=== PATIENT | male | born 1955 | race Caucasian/White ===

== ENCOUNTER 2017-01-23 23:17 | Inpatient (IN) | payer MEDICARE ==
[2017-01-23] MEDS ORDERED: ALBUTEROL SULFATE 0.083% NEB 2.5 MG/3 ML AMPUL NEB ONE (23:20)
--- NOTE | 2017-01-23 23:25 | ER Document Report ---
ED General - General Stated Complaint: DIFFICULTY BREATHING Notes: Patient is a 61-year-old male who presents with complaint of difficulty breathing. Patient's called him once because worsening difficulty breathing today. He does have a history of COPD. He has a history of liver failure. He does still smoke. He wears 4 L of oxygen at home. Patient initially had a fever 101.8. They did give 975 mg,. They give him a DuoNeb treatment. They gave him 125 of Solu-Medrol. They gave him 2 g of magnesium. They placed on BiPAP. He still has some increased work of breathing however, paramedics say he looks much improved as compared to when they first arrived to him. No chest pain. TRAVEL OUTSIDE OF THE [place] IN LAST 30 DAYS: No - Related Data Allergies/Adverse Reactions: cephalexin monohydrate [From Keflex] Allergy (Intermediate, Verified 06/08/16 08 :54) codeine Allergy (Verified 06/08/16 08:54) morphine Allergy (Verified 06/08/16 08:54) Home Medications: Current Home Medications Albuterol Sulfate [Proair HFA] 1 puff IH Q4HP PRN 01/24/17 [History] Atorvastatin Calcium [Lipitor 40 mg Tablet] 40 mg PO DAILY 01/24/17 [History] Cholecalciferol (Vitamin D3) [Vitamin D3 5000 unit Capsule] 5,000 unit PO DAILY 01/24/17 [History] Cyanocobalamin (Vitamin B-12) [Vitamin B-12 500 mcg Tablet] 500 mcg PO DAILY [History] Docusate Sodium [Colace 100 mg Capsule] 100 mg PO BID 01/24/17 [History] Folic Acid [Folvite 1 mg Tablet] 1 mg PO DAILY 01/24/17 [History] Furosemide [Lasix] 40 mg PO QAM 01/24/17 [History] Hydroxyzine HCl [Atarax 10 mg Tablet] 10 mg PO Q6HP PRN 01/24/17 [History] Ipratropium/Albuterol Sulfate [Duoneb 3 ml Ampul] 3 ml NEB RTQIDP PRN 01/24/17 [ History] Loratadine 10 mg PO DAILY 01/24/17 [History] Melatonin 10 mg PO QHS 01/24/17 [History] Montelukast Sodium [Singulair 10 mg Tablet] 10 mg PO QHS 01/24/17 [History] Multivitamin [Tab-A-Bailey] 1 tab PO DAILY 01/24/17 [History] Omeprazole Magnesium [Prilosec Otc] 40 mg PO DAILY 01/24/17 [History] Oxycodone HCl [Oxycodone HCl 10 MG Tablet] 10 mg PO Q6 01/24/17 [History] Pregabalin [Lyrica 100 Mg Capsule] 100 mg PO TID 01/24/17 [History] Rivaroxaban [Xarelto] 20 mg PO DAILY 01/24/17 [History] Tiotropium [place] [Spiriva Respimat] 2 puff IH DAILY 01/24/17 [History] Tramadol HCl [Ultram 50 mg Tablet] 50 mg PO TIDP PRN 01/24/17 [History] Trazodone HCl [Desyrel] 300 mg PO QHS 01/24/17 [History] Vitamin B Complex 1 cap PO DAILY 01/24/17 [History] Past Medical History - Social History Smoking Status: Current Every Day Smoker Frequency of alcohol use: None Drug Abuse: None Family History: COPD, Hypertension - Past Medical History Cardiac Medical History: Reports: Hx Congestive Heart Failure, Hx DVT, Hx Heart Attack, Hx Hypercholesterolemia, Hx Hypertension, Hx Peripheral Vascular Disease , Hx Pulmonary Embolism Pulmonary Medical History: Reports: Hx Asthma, Hx Bronchitis, Hx COPD, Hx Pneumonia, Hx Sleep Apnea Denies: Hx Tuberculosis Neurological Medical History: Denies: Hx Seizures GI Medical History: Reports: Hx Gastroesophageal Reflux Disease, Hx Hiatal Hernia, Hx Ulcer Psychiatric Medical History: Denies: Hx Depression Infectious Medical History: Reports: 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 Denies: Hx Appendectomy, Hx Bowel Surgery, Hx Coronary Artery Bypass Graft, Hx Gastric Bypass Surgery, Hx Pacemaker - Immunizations Hx Diphtheria, Pertussis, Tetanus Vaccination: Yes Hx Pneumococcal Vaccination: 03/25/13 Review of Systems - Review of Systems Notes: My Normal Review Basic REVIEW OF SYSTEMS: CONSTITUTIONAL : Denies fever, chills, or sweats. Denies recent illness. EENT: Denies eye, ear, throat, or mouth pain or symptoms. Denies nasal or sinus congestion. CARDIOVASCULAR: Denies chest pain. RESPIRATORY: Difficulty breathing. Wheezing. GASTROINTESTINAL: Denies abdominal pain. Denies nausea, vomiting, or diarrhea. Denies constipation. Last BM: MUSCULOSKELETAL: Denies neck or back pain or joint pain or swelling. SKIN: Denies rash or skin lesions. NEUROLOGICAL: Denies altered mental status or loss of consciousness. Denies headache. Denies weakness or paralysis or loss of use of either side. Denies problems with gait or speech. Denies sensory or motor loss. ALL OTHER SYSTEMS REVIEWED AND NEGATIVE. Physical Exam - Vital signs Vitals: Resp Pulse Ox 20 95 01/23/17 23:20 01/23/17 23:20 - Notes Notes: General Appearance: Well nourished, alert, cooperative, moderate acute distress , no obvious discomfort. Speaks in 2-3 word sentences. Vitals: reviewed, See vital signs table. Head: no swelling or tenderness to the head Eyes: PERRL, EOMI, Conjuctiva clear Mouth: No decreasd moisture Throat: No tonsillar inflammation, No airway obstruction, No lymphadenopathy Neck: Supple, no neck tenderness, Lungs: Diffuse wheezing, No rales, No rhonci, No accessory muscle use, fair air exchange bilaterally. Heart: Normal rate, Regular rythm, No murmur, no rub Abdomen: Normal BS, soft, some abdominal distention most likely related to ascites. Patient does have a large ventral hernia which is easily reducible and soft on palpation. No significant pain to palpation abdomen. Extremities: strength 5/5 in all extremities, good pulses in all extremities, no swelling or tenderness in the extremities, 3+ lower extremity edema which the patient says is chronic. Patient keeps his legs wrapped to help deal with the edema. Skin: warm, dry, appropriate color, no rash. I did cut off the patient's ulna boots. Patient has slight skin breakdown on both feet. There are no areas that look consistent with infection. Neuro: speech clear, oriented x 3, normal affect, responds appropriately to questions. Course - Re-evaluation Re-evalutation: 01/24/17 01:10 Patient's laboratory evaluations just significant for hypokalemia. Chest x- rays negative however he had fever with rest or issues and therefore we'll treat with Levaquin. I have ordered a flu swab as well. Patient's breathing was doing much better , but now he started having some wheezing and tightness again. We will repeat his DuoNeb treatments. I'll consult the hospitalist for consideration for admission. Dictation of this chart was performed using voice recognition software; therefore, there may be some unintended grammatical errors. 01/24/17 01:42 Patient is receiving the DuoNeb treatment now. The sternum become more wheezing started become we'll bit tired. His FiO2 on the BiPAP is only 35%. I will increase this. Will let him get remainder of the DuoNeb treatment. He continues to not feel improvement we may have to elect to intubate the patient. Patient has never been on a ventilator before. 01/24/17 02:19 Patient continued to become more and more sluggish and tired. I did discuss options intubation with him. He does agree to this. Patient's oxygen saturation on 100% FiO2 with BiPAP at that time was only 94%. Patient was given etomidate and succinylcholine. Patient did have some muscle tetany with etomidate. On first attempt a solid cores but was unable to pass the tube. On second attempt I placed a bougie through the cords and into the tube over it. Patient is now intubated. Bilateral breath sounds. No sounds in the stomach. Patient will be sedated with Versed. 01/24/17 03:34 Patient does have continued wheezing and tightness in the lungs. The sedation. Propofol and Versed her high levels. I will start a ketamine drip as this may be better from a respiratory distress standpoint and hopefully help bronchodilator. We will titrate down the propofol once a ketamine drip was started. 01/24/17 04:49 The ketamine drip is working well for the patient. We are able to titrate down the Versed quite a bit. We are now about titrating down the propofol. Dispatch patient's O2 saturations on monitor only being 93-94% his ABG shows that his PO2 is very high. He does have high CO2 with metabolic acidosis. We will titrate down his PO2 some. We will obtain a repeat ABG. 01/24/17 06:34 Did increase his tidal volume 500 available to tachypneic. His peak pressures were normal and therefore think it's appropriate to increase Tylenol find 500 which I think is probably can be more appropriate for his size. His lung hernandez infection cleared up nicely since being started on the ketamine drip. His oxygen saturation still only read on 3%. Will obtain a repeat ABG being that last on his PO2 is very high despite his O2 sats being fairly low. Hopefully his CO2 is starting to improve and his pH is also hopefully starting to improve. Patient was accepted by Dr. Simmons but he has been busy on the floor and he has not yet seen the patient or written orders therefore I continue to manage the patient. - Vital Signs Vital signs: Temp Pulse Resp BP Pulse Ox 97.3 F 74 22 H 120/70 94 01/24/17 16:00 01/25/17 01:28 01/25/17 01:28 01/25/17 01:38 01/25/17 04:37 - Laboratory Result Diagrams: 01/25/17 03:58 01/25/17 03:58 Laboratory results interpreted by me: 01/23/17 01/23/17 01/23/17 23:37 23:37 23:37 RBC RDW 15.2 H Seg Neutrophils % Lymphocytes % Carbonic Acid ABG pH ABG pCO2 ABG pO2 ABG HCO3 ABG Total CO2 ABG O2 Saturation VBG pH 7.45 H Potassium 3.0 L* Glucose 149 H Calcium AST 176 H ALT 88 H Creatine Kinase 236 H Albumin 3.4 L Salicylates Acetaminophen 01/24/17 01/24/17 01/24/17 03:51 06:54 06:54 RBC 4.32 L RDW 15.5 H Seg Neutrophils % 89.7 H Lymphocytes % 6.2 L Carbonic Acid 1.82 H ABG pH 7.27 L ABG pCO2 60.3 H ABG pO2 279.7 H ABG HCO3 26.8 H ABG Total CO2 28.7 H ABG O2 Saturation 99.5 H VBG pH Potassium Glucose 261 H Calcium 8.2 L AST 152 H ALT 84 H Creatine Kinase Albumin 3.2 L Salicylates Acetaminophen 01/24/17 06:54 RBC RDW Seg Neutrophils % Lymphocytes % Carbonic Acid ABG pH ABG pCO2 ABG pO2 ABG HCO3 ABG Total CO2 ABG O2 Saturation VBG pH Potassium Glucose Calcium AST ALT Creatine Kinase Albumin Salicylates < 1.0 L Acetaminophen < 10 L - EKG Interpretation by Me Additional EKG results interpreted by me: 01/23/17 23:43 EKG is reviewed and interpreted by me. EKG shows sinus tachycardia with rate of [address] segment elevation or depression. No ischemic T wave inversions. IA interval, QRS duration, QTC intervals are within normal range. Procedures - Intubation Orotracheal Mallampati Classification: Class 3 Intubation method: Orotracheal Blade type: Dedra Blade size: 4 Equipment used: [employer] ETT size: 7.5 ETT secured at: Lips ETT secured at (cm): 23 Breath Sounds after Intubation: Equal Intubation Complications: No complications Critical Care Note - Critical Care Note Total time excluding time spent on procedures (mins): 60 Comments: Critical care time on this patient not including time spent on procedures approximately 60 minutes due to frequent re-evaluations, airway management, management of ventilator. Discharge - Discharge Clinical Impression: Respiratory distress Disposition: ADMITTED INPATIENT Admitting Provider: Hospitalist Unit Admitted: ICU
[2017-01-24 00:01] LABS: VENOUS BLOOD BASE EXCESS 2.6 mmol/L; VENOUS BLOOD HCO3 26.7 mmol/L (20-32); VENOUS BLOOD PCO2 39.3 mmHg (35-63); VENOUS BLOOD PH 7.45 (7.30-7.42)
--- NOTE | 2017-01-24 00:02 | EKG REPORT ---
SEVERITY:- OTHERWISE NORMAL ECG - SINUS TACHYCARDIA : Confirmed by: Dominick Bolivar 24-Jan-2017 00:01:40
[2017-01-24 00:04] LABS: ABSOLUTE BASOPHILS # (AUTO) 0.1 10^3/uL (0.0-0.2); ABSOLUTE EOSINOPHILS # (AUTO) 0.1 10^3/uL (0.0-0.6); ABSOLUTE LYMPHOCYTES (AUTO) 2.1 10^3/uL (0.5-4.7); ABSOLUTE MONOCYTES (AUTO) 0.8 10^3/uL (0.1-1.4); ABSOLUTE NEUT (AUTO) 6.4 10^3/uL (1.7-8.2); BASOPHILS % (AUTO) 0.7 % (0-2); EOSINOPHILS % (AUTO) 1.1 % (0-6); HEMATOCRIT 42.3 % (37.9-51.0); HEMOGLOBIN 14.7 g/dL (13.5-17.0); HGB HCT DIFFERENCE 1.8; LYMPHOCYTES % (AUTO) 22.4 % (13-45); MEAN CORPUSCULAR HEMOGLOBIN 32.8 pg (27.0-33.4); MEAN CORPUSCULAR HGB CONC 34.9 g/dL (32.0-36.0); MEAN CORPUSCULAR VOLUME 94 fl (80-97); MONOCYTES % (AUTO) 8.6 % (3-13); RED BLOOD COUNT 4.49 10^6/uL (4.35-5.55); RED CELL DISTRIBUTION WIDTH 15.2 % (11.5-14.0); SEGMENTED NEUTROPHILS % (AUTO) 67.2 % (42-78); WHITE BLOOD COUNT 9.5 10^3/uL (4.0-10.5)
[2017-01-24 00:17] LABS: ALANINE AMINOTRANSFERASE 88 U/L (21-72); ALBUMIN 3.4 g/dL (3.5-5.0); ALKALINE PHOSPHATASE 75 U/L (38-126); ANION GAP 11 (5-19); ASPARTATE AMINO TRANSFERASE 176 U/L (17-59); BILIRUBIN,TOTAL 0.6 mg/dL (0.2-1.3); BLOOD UREA NITROGEN 12 mg/dL (7-20); CARBON DIOXIDE 26 mmol/L (22-30); CHLORIDE 102 mmol/L (98-107); CREATINE KINASE 236 U/L (55-170); CREATININE RESULT 0.95 mg/dL (0.52-1.25); GLUCOSE 149 mg/dL (75-110); TOTAL PROTEIN 7.3 g/dL (6.3-8.2)
[2017-01-24 00:34] LABS: TROPONIN I < 0.012 ng/mL
[2017-01-24] MEDS ORDERED: LEVOFLOXACIN 750 MG/D5W RTU 150 ML IV ONE (01:07)
[2017-01-24] MEDS ORDERED: IPRATROPIUM/ALBUTEROL 0.5-2.5 MG/3 ML AMPUL NEB ONE (01:10)
[2017-01-24] MEDS ORDERED: POTASSI CL 20 MEQ/50 ML RIDER 50 ML IV SCH (01:15)
[2017-01-24] MEDS ORDERED: ETOMIDATE INJ/PF 20 MG/10 ML SDV IV ONE (01:57)
[2017-01-24] MEDS ORDERED: SUCCINYLCHOLINE CHLORIDE INJ 200 MG/10 ML VIAL IV ONE (01:57)
[2017-01-24] MEDS ORDERED: MIDAZOLAM 2 MG/2 ML INJ ONE ×4 (02:15→04:37)
[2017-01-24] MEDS ORDERED: MIDAZOLAM HCL 100 ML IV PRN (02:18)
[2017-01-24] MEDS ORDERED: PROPOFOL 100 ML IV ONE ×2 (02:19→08:02)
[2017-01-24] MEDS ORDERED: MIDAZOLAM 2 MG/2 ML INJ IV ONE (02:19)
[2017-01-24] MEDS ORDERED: PROPOFOL 100 ML IV PRN (02:45)
[2017-01-24] MEDS ORDERED: ALBUTEROL SULFATE 0.083% NEB 2.5 MG/3 ML AMPUL NEB ONE (02:52)
[2017-01-24] MEDS ORDERED: KETAMINE HCL INJ 500 MG/10 ML VIAL IV ONE (03:29)
[2017-01-24] MEDS ORDERED: MAGNESIUM SULFATE/D5W 100 ML IV ONE (03:29)
[2017-01-24 04:18] LABS: ARTERIAL BLOOD BASE EXCESS -1.5 mmol/L; ARTERIAL BLOOD O2 SATURATION 99.5 % (94-98)
[2017-01-24] MEDS ORDERED: FUROSEMIDE INJ/PF 40 MG/4 ML SDV IV ONE (04:25)
[2017-01-24] MEDS ORDERED: FUROSEMIDE INJ/PF 40 MG/4 ML SDV ONE (06:01)
[2017-01-24 07:10] LABS: ABSOLUTE LYMPHOCYTES (AUTO) 0.5 10^3/uL (0.5-4.7); ABSOLUTE MONOCYTES (AUTO) 0.3 10^3/uL (0.1-1.4); ABSOLUTE NEUT (AUTO) 7.8 10^3/uL (1.7-8.2); BASOPHILS % (AUTO) 0.2 % (0-2); EOSINOPHILS % (AUTO) 0.1 % (0-6); HEMATOCRIT 40.8 % (37.9-51.0); HGB HCT DIFFERENCE 1.2; LYMPHOCYTES % (AUTO) 6.2 % (13-45); MEAN CORPUSCULAR HEMOGLOBIN 32.4 pg (27.0-33.4); MEAN CORPUSCULAR HGB CONC 34.3 g/dL (32.0-36.0); MEAN CORPUSCULAR VOLUME 94 fl (80-97); MONOCYTES % (AUTO) 3.8 % (3-13); RED BLOOD COUNT 4.32 10^6/uL (4.35-5.55); RED CELL DISTRIBUTION WIDTH 15.5 % (11.5-14.0); SEGMENTED NEUTROPHILS % (AUTO) 89.7 % (42-78); WHITE BLOOD COUNT 8.7 10^3/uL (4.0-10.5)
[2017-01-24 07:11] LABS: PROTHROMBIN TIME 13.4 SEC (11.4-15.4)
[2017-01-24 07:12] LABS: PARTIAL THROMBOPLASTIN TIME 28.8 SEC (23.5-35.8)
[2017-01-24 07:21] LABS: ALANINE AMINOTRANSFERASE 84 U/L (21-72); ALBUMIN 3.2 g/dL (3.5-5.0); ALKALINE PHOSPHATASE 63 U/L (38-126); ANION GAP 9 (5-19); ASPARTATE AMINO TRANSFERASE 152 U/L (17-59); BILIRUBIN,TOTAL 0.7 mg/dL (0.2-1.3); BLOOD UREA NITROGEN 15 mg/dL (7-20); CALCIUM 8.2 mg/dL (8.4-10.2); CARBON DIOXIDE 26 mmol/L (22-30); CHLORIDE 105 mmol/L (98-107); CREATININE RESULT 0.92 mg/dL (0.52-1.25); GLUCOSE 261 mg/dL (75-110); POTASSIUM 3.7 mmol/L (3.6-5.0); SODIUM 139.5 mmol/L (137-145); TOTAL PROTEIN 6.8 g/dL (6.3-8.2)
[2017-01-24] MEDS ORDERED: ALBUTEROL SULFATE 0.083% NEB 2.5 MG/3 ML AMPUL NEB PRN (07:33)
[2017-01-24] MEDS ORDERED: DEXTROSE 50%-WATER 25 GM/50 ML DISP.SYRIN IV PRN ×2 (07:34)
[2017-01-24] MEDS ORDERED: DEXTROSE 40% GEL 15 GM TUBE PO PRN ×2 (07:34)
[2017-01-24] MEDS ORDERED: GLUCAGON,HUMAN RECOMB 1 MG INJ IM PRN (07:34)
[2017-01-24] MEDS ORDERED: PHARMACY COMMUNICATION ORDER MC NR ×2 (07:45→09:15)
[2017-01-24 07:47] LABS: ADD ON TESTING BLD IN LAB ACKNOWLEDGE
[2017-01-24] MEDS ORDERED: POTASSI CL 20 MEQ/NS 1L 1,000 ML IV PRN (07:47)
[2017-01-24] MEDS ORDERED: ACETAMINOPHEN 325 MG TABLET NG PRN (07:55)
[2017-01-24] MEDS ORDERED: VANCOMYCIN HCL 0 MG in DEXTROSE 5%-WATER 250 ML IV NR (08:00)
[2017-01-24] MEDS ORDERED: AZTREONAM INJ 1 GM VIAL IV SCH (08:00)
[2017-01-24] MEDS ORDERED: MIDAZOLAM HCL 100 ML IV ONE (08:02)
[2017-01-24 08:10] LABS: MAGNESIUM 2.3 mg/dL (1.6-2.3)
--- NOTE | 2017-01-24 08:20 | PDOC H&P ---
History of Present Illness Admission Date/PCP: 01/24/17 03:46 Patient complains of: Breathing trouble History of Present Illness: ANALY NEVAREZ is a 61 year old male with chronic bilateral lower leg swelling, asthma, Home O2 dependent COPD, obstructive sleep apnea, with CPAP level of 4, coronary artery disease, status post stent implant 1, history of multiple DVTs and pulmonary emboli, cirrhosis, arthritis, chronic pain, and hyperlipidemia along with chronic tobacco and alcohol dependence, occasionally smoking marijuana, who presents to the emergency room for evaluation of above complaint. Patient has been discussed with emergency room physician who evaluated the patient. Patient is intubated and sedated and is able to provide no history whatsoever in terms of acute or chronic events, review of systems, personal habits, family history, etc. No friends or family are present. Old inpatient records are reviewed. . Onset of worsening of his chronic respiratory difficulty on the , with associated fever of 101.8. Was given Tylenol, DuoNeb treatment, Solu-Medrol, magnesium, and placed on BiPAP. Initial clinical improvement in the emergency room, then patient began exhibiting greater and greater fatigue and eventually required intubation by the emergency room physician. Emergency room physician notes are reviewed. No further information available this point in time. Laboratory results are listed in [facility] and are reviewed. X-ray summary results are listed below, with full report(s) reviewed. . EKG reviewed. Social history/personal habits: Per history and present illness from June 2015 admission, patient is a . No children. At that time, was smoking 1 -2 packs of cigarettes per day. Case of beer every 3-4 days. Smokes marijuana. Takes an occasional "pill" for his chronic pain. Occasional whiskey. On disability. Allergies/adverse reactions are listed in [facility] and are reviewed. Home medications Home medications initially autopopulated into [employer] may not accurately reflect patient's true medications, dosages, and/or frequencies. REVIEW OF SYSTEMS: See history and present illness.No further information available this point in time. PHYSICAL EXAMINATION: 5 feet 11 inches tall. 113.4 kg. BMI 34.9 kg/m. Blood pressure 105/63. Pulse 102 and regular. 92% saturation on 75% FiO2, SIMV PRVC peep of 5 pressure support 10 rate of 14 tidal volume 450. Initial temperature in emergency room 102.0; subsequent temperature 99.5. Somewhat obese chronically ill-appearing male who appears number of years older than his stated age. Intubated and sedated. Does not respond to name. Skin is warm and dry. No grossly obvious evidence of rash in areas of skin examined. No subcutaneous nodules palpated. ENT: Hearing can't be adequately evaluated due to his current status. Eyes: No scleral icterus. Pupils equal and reactive to light at 4 mm. [place] conjunctivae. No Raccoon eyes. Neck is nontender to gentle palpation. Midline trachea. No palpable thyroid nodule mass enlargement or tenderness. Lymphatic: No palpable cervical or clavicular nodes. Neck and lymphatic exams limited by patient body habitus. Psychiatric: Can't be adequately evaluated due to his current status. Lungs: Auscultation reveals clear and equal breath sounds bilaterally. No use of accessory respiratory muscles. Cardiovascular: Heart regular rate and rhythm, without gallop murmur or rub. No carotid or abdominal aortic bruits. Bilateral symmetric moderate calf ankle and pedal edema. Not sure I can palpate dorsalis pedis or posterior tibial pulses on either side due to edema, but feet and toes are warm with excellent capillary refill.. Lower extremity exam is somewhat limited by his body habitus and intubated state. Unna boots have been opened on each lower extremity. Abdomen: soft, obese, nontender with positive bowel sounds. Unable to adequately evaluate abdomen for masses or organomegaly due to body habitus. Extremities: Feet are warm and dry. No calf tenderness to compression. Gentle manipulation of lower extremities fails to reveal any obvious evidence of injury or instability to knees hips or ankles. Neurologic: Patellar reflexes absent. Absent Babinski. Light touch can't be determined due to his current status. 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 Past Surgical History Past Surgical History: Reports: Cardiac Catheterization - stent x1, Cholecystectomy, Herniorrhaphy - mesh, Orthopedic Surgery - multiple back, Tonsillectomy, Vascular Surgery - filter placed, pt unsure where Denies: Appendectomy, Coronary Artery Bypass Graft, Gastric Bypass Surgery, Pacemaker Social History Information Source: Emergency Med Personnel, [facility] Records Smoking Status: Current Every Day Smoker Frequency of Alcohol Use: Heavy - At times 6-8 beers per day Hx Recreational Drug Use: No Drugs: None Hx Prescription Drug Abuse: Yes - 11 years ago - Advance Directive Resuscitation Status: Full Code Surrogate healthcare decision maker:: Uncertain at this point in time. Family History Family History: COPD, Hypertension Parental Family History Reviewed: Yes - per old records. Children Family History Reviewed: NA Sibling(s) Family History Reviewed.: Yes - Per old records. Medication/Allergy Home Medications: Albuterol Sulfate [Proair HFA] 1 puff IH Q4HP PRN 01/24/17 Atorvastatin Calcium [Lipitor 40 mg Tablet] 40 mg PO DAILY 01/24/17 Cholecalciferol (Vitamin D3) [Vitamin D3 5000 unit Capsule] 5,000 unit PO DAILY 01/24/17 Cyanocobalamin (Vitamin B-12) [Vitamin B-12 500 mcg Tablet] 500 mcg PO DAILY Docusate Sodium [Colace 100 mg Capsule] 100 mg PO BID 01/24/17 Folic Acid [Folvite 1 mg Tablet] 1 mg PO DAILY 01/24/17 Furosemide [Lasix] 40 mg PO QAM 01/24/17 Hydroxyzine HCl [Atarax 10 mg Tablet] 10 mg PO Q6HP PRN 01/24/17 Ipratropium/Albuterol Sulfate [Duoneb 3 ml Ampul] 3 ml NEB RTQIDP PRN 01/24/17 Montelukast Sodium [Singulair 10 mg Tablet] 10 mg PO QHS 01/24/17 Multivitamin [Tab-A-Bailey] 1 tab PO DAILY 01/24/17 Omeprazole Magnesium [Prilosec Otc] 40 mg PO DAILY 01/24/17 Oxycodone HCl [Oxycodone HCl 10 MG Tablet] 10 mg PO Q6 01/24/17 Pregabalin [Lyrica 100 Mg Capsule] 100 mg PO TID 01/24/17 RX: Loratadine 10 mg PO DAILY 01/24/17 RX: Melatonin 10 mg PO QHS 01/24/17 RX: Vitamin B Complex 1 cap PO DAILY 01/24/17 Rivaroxaban [Xarelto] 20 mg PO DAILY 01/24/17 Tiotropium [place] [Spiriva Respimat] 2 puff IH DAILY 01/24/17 Tramadol HCl [Ultram 50 mg Tablet] 50 mg PO TIDP PRN 01/24/17 Trazodone HCl [Desyrel] 300 mg PO QHS 01/24/17 Allergies/Adverse Reactions: cephalexin monohydrate [From Keflex] Allergy (Intermediate, Verified 06/08/16 08 :54) codeine Allergy (Verified 06/08/16 08:54) morphine Allergy (Verified 06/08/16 08:54) Physical Exam Vital Signs: Temp Pulse Resp BP Pulse Ox 99.5 F 26 H 100/66 92 01/24/17 00:01 01/24/17 07:45 01/24/17 07:45 01/24/17 07:45 Intake & Output 01/23/17 01/24/17 01/25/17 00:59 00:59 00:59 Intake Total 1000 Output Total 250 Balance 750 Weight 113.398 kg Results Laboratory Results: 01/24/17 06:54 01/24/17 06:54 01/24/17 01/24/17 01/24/17 03:51 06:54 06:54 WBC 8.7 RBC 4.32 L Hgb 14.0 Hct 40.8 MCV 94 MCH 32.4 MCHC 34.3 RDW 15.5 H Plt Count 165 Seg Neutrophils % 89.7 H Lymphocytes % 6.2 L Monocytes % 3.8 Eosinophils % 0.1 Basophils % 0.2 Absolute Neutrophils 7.8 Absolute Lymphocytes 0.5 Absolute Monocytes 0.3 Absolute Eosinophils 0.0 Absolute Basophils 0.0 Carbonic Acid 1.82 H HCO3/H2CO3 Ratio 14:1 ABG pH 7.27 L ABG pCO2 60.3 H ABG pO2 279.7 H ABG HCO3 26.8 H ABG O2 Saturation 99.5 H ABG Base Excess -1.5 FiO2 100% Sodium 139.5 Potassium 3.7 Chloride 105 Carbon Dioxide 26 Anion Gap 9 BUN 15 Creatinine 0.92 Est GFR ( Amer) > 60 Est GFR (Non-Af Amer) > 60 Glucose 261 H Calcium 8.2 L Total Bilirubin 0.7 AST 152 H ALT 84 H Alkaline Phosphatase 63 Total Protein 6.8 Albumin 3.2 L Impressions: Chest X-Ray 01/24/17 02:21 IMPRESSION: Interval worsening. Central pulmonary edema pattern. Infectious etiologies cannot be excluded. Lines and tubes. Assessment & Plan - Diagnosis (1) Acute and chronic respiratory failure with hypoxia Is this a current diagnosis for this admission?: YesPlan: Patient will be admitted under COPD exacerbation and pneumonia protocol. Scheduled DuoNeb's. PRN albuterol nebs Solu-Medrol IV Pepcid for gastritis prophylaxis. Pulmonology consult. Antibiotics will consist of aztreonam, and intravenous Levaquin and vancomycin. Pharmacy to assist with dosing.. Knee high SCDs for DVT prophylaxis; with patient reportedly on systemic anticoagulation, no need for Lovenox or heparin at this point in time. Time spent in evaluation and management of patient: 61 minutes. (2) Pneumonia Qualifiers: Pneumonia type: due to unspecified organism Laterality: bilateral Lung location: unspecified part of lung Qualified Code(s): J18.9 - Pneumonia, unspecified organism Is this a current diagnosis for this admission?: Yes (3) Alcohol dependency Qualifiers: Substance use status: unspecified alcohol-induced disorder Qualified Code(s): F10.29 - Alcohol dependence with unspecified alcohol-induced disorder Is this a current diagnosis for this admission?: YesPlan: Daily banana bag. (4) CAD (coronary artery disease) Qualifiers: Coronary Disease-Associated Artery/Lesion type: [place] artery [place] vs. transplanted heart: [place] heart Associated angina: without angina Qualified Code(s): I25.10 - Atherosclerotic heart disease of [place] coronary artery without angina pectoris Is this a current diagnosis for this admission?: YesPlan: Resume home medications as appropriate once these have been determined and reviewed. (5) History of DVT (deep vein thrombosis) Is this a current diagnosis for this admission?: Yes (6) [facility] current use of anticoagulant therapy Is this a current diagnosis for this admission?: YesPlan: Resume home medications as appropriate once these have been determined and reviewed. (7) Post-splenectomy Is this a current diagnosis for this admission?: Yes (8) Tobacco use disorder Is this a current diagnosis for this admission?: Yes - Inpatient Certification Based on my medical assessment, after consideration of the patient's comorbidities, presenting symptoms, or acuity I expect that the services needed warrant INPATIENT care.: Yes I certify that my determination is in accordance with my understanding of Medicare's requirements for reasonable and necessary INPATIENT services [42 CFR 412.3e].: Yes Medical Necessity: Need For IV Fluids, Need For Continuous Telemetry Monitoring , Need for Nebulizer Therapy and Monitoring of Response, Need for IV Antibiotics , Risk of Diagnosis Which Will Require Inpatient Eval/Care/Monitoring Post Hospital Care: D/C or Transfer Summary
[2017-01-24] MEDS ORDERED: FENTANYL CITRATE INJ/PF 100 MCG/2 ML AMPUL IV PRN (08:42)
[2017-01-24] MEDS: IPRATROPIUM/ALBUTEROL 0.5-2.5 MG/3 ML AMPUL NEB SCH ×3 (08:45→20:53)
[2017-01-24] MEDS: METHYLPREDNISOLONE INJ 125 MG/2 ML SDV IV SCH ×3 (09:00→21:34)
--- NOTE | 2017-01-24 09:56 | PDOC CONSULTATION ---
Consultation Consult Date: 01/24/17 Attending physician:: SENA REYNOSO Consult reason:: resp fail History of Present Illness Admission Date/PCP: 01/24/17 07:33 History of Present Illness: all informatin from chart patient intubated and sedated;ANALY NEVAREZ is a 61 year old male with chronic bilateral lower leg swelling, asthma, Home O2 dependent COPD, obstructive sleep apnea, with CPAP level of 4, coronary artery disease, status post stent implant 1, history of multiple DVTs and pulmonary emboli, cirrhosis, arthritis, chronic pain, and hyperlipidemia along with chronic tobacco and alcohol dependence, occasionally smoking marijuana, who presents to the emergency room for evaluation of above complaint. Onset of worsening of his chronic respiratory difficulty on the , with associated fever of 101.8. Was given Tylenol, DuoNeb treatment, Solu-Medrol, magnesium, and placed on BiPAP. Initial clinical improvement in the emergency room, then patient began exhibiting greater and greater fatigue and eventually required intubation by the emergency room physician. 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 Past Surgical History Past Surgical History: Reports: Cardiac Catheterization - stent x1, Cholecystectomy, Herniorrhaphy - mess, Orthopedic Surgery - multiple back, Tonsillectomy, Vascular Surgery - filter placed, pt unsure where Denies: Appendectomy, Coronary Artery Bypass Graft, Gastric Bypass Surgery, Pacemaker Social History Smoking Status: Current Every Day Smoker Frequency of Alcohol Use: Heavy - At times 6-8 beeres per day Hx Recreational Drug Use: No Drugs: None Hx Prescription Drug Abuse: Yes - 11 years ago - Advance Directive Resuscitation Status: Full Code Family History Family History: COPD, Hypertension Parental Family History Reviewed: No Children Family History Reviewed: No Sibling(s) Family History Reviewed.: No Medication/Allergy Allergies/Adverse Reactions: cephalexin monohydrate [From Keflex] Allergy (Intermediate, Verified 06/08/16 08 :54) codeine Allergy (Verified 06/08/16 08:54) morphine Allergy (Verified 06/08/16 08:54) Review of Systems ROS unobtainable: Due to endotracheal tube Physical Exam Vital Signs: Temp Pulse Resp BP Pulse Ox 99.5 F 26 H 100/66 92 01/24/17 00:01 01/24/17 07:45 01/24/17 07:45 01/24/17 07:45 Intake & Output 01/23/17 01/24/17 01/25/17 06:59 06:59 06:59 Intake Total 1000 Output Total 250 Balance 750 General appearance: PRESENT: no acute distress, disheveled, morbidly obese Head exam: PRESENT: atraumatic, normocephalic Eye exam: PRESENT: conjunctiva pale Mouth exam: PRESENT: dry mucosa, neck supple, other - ET tube in place Neck exam: ABSENT: carotid bruit, JVD, lymphadenopathy, thyromegaly Respiratory exam: PRESENT: decreased breath sounds, prolonged expiratory phas, rhonchi, symmetrical, unlabored, wheezes Cardiovascular exam: PRESENT: RRR, +S1, +S2 Pulses: PRESENT: normal radial pulses GI/Abdominal exam: PRESENT: normal bowel sounds, soft. ABSENT: distended, guarding, mass, organolmegaly, rebound, tenderness Rectal exam: PRESENT: deferred Gentrourinary exam: PRESENT: indwelling catheter Extremities exam: PRESENT: +2 edema - raised irregular lesions dorsum of feet Musculoskeletal exam: PRESENT: normal inspection Skin exam: PRESENT: normal color, other Results Impressions: Chest X-Ray 01/24/17 02:21 IMPRESSION: Interval worsening. Central pulmonary edema pattern. Infectious etiologies cannot be excluded. Lines and tubes. Assessment & Plan - Diagnosis (1) Acute and chronic respiratory failure with hypoxia Is this a current diagnosis for this admission?: YesPlan: mechanical vent supp O2,bronchodialtor abx (2) GERD (gastroesophageal reflux disease) Qualifiers: Esophagitis presence: esophagitis presence not specified Qualified Code(s): K21.9 - Gastro-esophageal reflux disease without esophagitis Is this a current diagnosis for this admission?: Yes (3) Cellulitis of right leg Is this a current diagnosis for this admission?: Yes (4) Obesity, Class III, BMI 40-49.9 (morbid obesity) Is this a current diagnosis for this admission?: Yes (5) Peripheral vascular disease Is this a current diagnosis for this admission?: Yes (6) Alcohol dependency Qualifiers: Substance use status: unspecified alcohol-induced disorder Qualified Code(s): F10.29 - Alcohol dependence with unspecified alcohol-induced disorder Is this a current diagnosis for this admission?: Yes (7) COPD (chronic obstructive pulmonary disease) Qualifiers: COPD type: unspecified COPD Qualified Code(s): J44.9 - Chronic obstructive pulmonary disease, unspecified Is this a current diagnosis for this admission?: YesPlan: end stage O2 dependent in active smoker (8) RONIT (obstructive sleep apnea) Is this a current diagnosis for this admission?: Yes (9) Tobacco use disorder Is this a current diagnosis for this admission?: YesPlan: transdermal nicotine - Time Critical Time spent with patient: 35 or more minutes - 55 min
[2017-01-24] MEDS ORDERED: METHYLPREDNISOLONE INJ 125 MG/2 ML SDV IV SCH (10:00)
[2017-01-24] MEDS ORDERED: AZTREONAM 2 GM in DEXTROSE 5%-WATER 100 ML IV SCH (10:00)
[2017-01-24] MEDS ORDERED: FAMOTIDINE INJ/PF 20 MG/2 ML SDV IV SCH (10:00)
[2017-01-24] MEDS: NORMAL SALINE 1000 ML 1,000 ML with THIAMINE HCL 100 MG, MVI, ADULT NO.1 WITH VIT K 10 ... IV PRN ×4 (10:54)
[2017-01-24] MEDS: VANCOMYCIN HCL 1,250 MG in DEXTROSE 5%-WATER 250 ML IV SCH ×2 (11:50→17:24)
[2017-01-24] MEDS: MIDAZOLAM HCL 100 ML IV PRN ×4 (11:50→23:29)
[2017-01-24] MEDS: PROPOFOL 100 ML IV PRN ×4 (11:51→20:13)
[2017-01-24] MEDS: PANTOPRAZOLE SODIUM 40 MG VIAL IV SCH ×2 (11:52→21:34)
[2017-01-24] MEDS: NICOTINE 21 MG/24 HR PATCH.TD24 TD SCH (11:52)
[2017-01-24 12:13] LABS: ARTERIAL BLOOD BASE EXCESS -1.5 mmol/L; ARTERIAL BLOOD O2 SATURATION 96.2 % (94-98)
[2017-01-24] MEDS: PIPERACILLIN SODIUM/TAZOBACTAM 4.5 GM in NORMAL SALINE 100 ML IV SCH ×2 (12:26→17:15)
[2017-01-24] MEDS: DIAZEPAM 5 MG TABLET NG SCH ×2 (12:26→17:16)
[2017-01-24 13:25] LABS: URINE BARBITURATES SCREEN NEGATIVE; URINE METHADONE SCREEN NEGATIVE; URINE OPIATES LOW NEGATIVE; URINE PHENCYCLIDINE SCREEN NEGATIVE
[2017-01-24] MEDS: NORMAL SALINE 1000 ML 1,000 ML IV PRN (17:15)
--- NOTE | 2017-01-24 17:27 | XCELERA REPORT ---
[address] [address] Transthoracic Echocardiogram Report Name: ANALY NEVAREZ JR Age: 61 yrs Gender: Male : 1955 Patient Status: Inpatient Patient Location: ICU\S\611\S\A Study Date: 01/24/2017 01:29 PM Height: 71 in Weight: 250 lb BSA: 2.3 m2 Procedure: A complete two-dimensional transthoracic echocardiogram was performed (2D, M-mode, spectral and color flow Doppler). The study was technically difficult with many images being suboptimal in quality. Reason For Study: chf Ordering Physician: SENA REYNOSO Performed By: Meg Mclean Interpretation Summary The study was technically difficult with many images being suboptimal in quality. The left ventricular ejection fraction is preserved. There is borderline concentric left ventricular hypertrophy. The left ventricle is grossly normal size. Doppler measurements suggest impaired left ventricular relaxation, which is associated with grade I/IV or mild diastolic dysfunction Regional wall motion abnormalities cannot be excluded due to limited visualization. The right ventricle is borderline dilated. The right ventricular systolic function is normal. The right atrium is normal in size The left atrium is mildly dilated. There is no mitral valve stenosis. There is a trace amount of mitral regurgitation There is no aortic valve stenosis No aortic regurgitation is present. There is a trace or physiologic amount of tricuspid regurgitation Tricuspid regurgitation jet envelope not well defined to measure RV systolic pressure accurately. There is no pericardial effusion. MMode/2D Measurements \T\ Calculations RVDd: 3.3 cm LVIDd: 4.8 cm FS: 34.7 % Ao root diam: 3.0 cm IVSd: 1.1 cm LVIDs: 3.1 cm EDV(Teich): 106.3 ml LVPWd: 1.1 cm ESV(Teich): 38.5 ml Ao root area: 6.9 cm2 EF(Teich): 63.8 % LA dimension: 4.5 cm Doppler Measurements \T\ Calculations MV E max symone: MV P1/2t max symone: Ao V2 max: LV V1 max P.5 cm/sec 77.0 cm/sec 110.4 cm/sec 4.9 mmHg MV A max symone: MV P1/2t: 77.3 msec Ao max PG: LV V1 max: 59.2 cm/sec 4.9 mmHg 111.1 cm/sec MV E/A: 1.3 MVA(P1/2t): 2.8 cm2 MV dec slope: 291.9 cm/sec2 MV dec time: 0.25 sec PA V2 max: TR max symone: 70.6 cm/sec 200.7 cm/sec PA max PG: TR max P.1 mmHg 2.0 mmHg Left Ventricle The left ventricle is grossly normal size. There is borderline concentric left ventricular hypertrophy. The left ventricular ejection fraction is preserved. Doppler measurements suggest impaired left ventricular relaxation, which is associated with grade I/IV or mild diastolic dysfunction. Regional wall motion abnormalities cannot be excluded due to limited visualization. Right Ventricle The right ventricle is borderline dilated. The right ventricle appears to be hypertrophied. The right ventricular systolic function is normal. Atria The right atrium is normal in size. The left atrium is mildly dilated. Interarterial septum not well visualized and not well dopplered. Cannot comment on ASD/PFO presence. Mitral Valve The mitral valve is grossly normal. There is no mitral valve stenosis. There is a trace amount of mitral regurgitation. Aortic Valve The aortic valve is not well visualized secondary to technical limitations. There is no aortic valve stenosis. No aortic regurgitation is present. Tricuspid Valve The tricuspid valve is not well visualized secondary to technical limitations. There is no tricuspid stenosis. There is a trace or physiologic amount of tricuspid regurgitation. Tricuspid regurgitation jet envelope not well defined to measure RV systolic pressure accurately. Pulmonic Valve The pulmonic valve is not well visualized. Great Vessels The aortic root is not well visualized. The inferior vena cava was not well visualized. Effusions There is no pericardial effusion. : SENA REYNOSO > Dominick Bolivar
[2017-01-24] MEDS: INSULIN LISPRO 100 UNIT/ML 3 ML VIAL SUBCUT PRN (18:08)
[2017-01-24] MEDS: LEVOFLOXACIN 750 MG/D5W RTU 750 MG/150 ML RTUPB IV SCH (21:34)
[2017-01-24] MEDS ORDERED: LORAZEPAM INJ 2 MG/1 ML VIAL IV PRN (23:04)
[2017-01-24] MEDS ORDERED: ENOXAPARIN SODIUM INJ 120 MG/0.8 ML DISP.SYRIN SUBCUT SCH (23:15)
[2017-01-24] MEDS ORDERED: ENOXAPARIN SODIUM INJ 120 MG/0.8 ML DISP.SYRIN SUBCUT ONE (23:30)
[2017-01-25] MEDS: DIAZEPAM 5 MG TABLET NG SCH ×6 (00:18→23:35)
[2017-01-25] MEDS: PIPERACILLIN SODIUM/TAZOBACTAM 4.5 GM in NORMAL SALINE 100 ML IV SCH ×5 (00:18→23:34)
[2017-01-25] MEDS: INSULIN LISPRO 100 UNIT/ML 3 ML VIAL SUBCUT PRN (00:47)
[2017-01-25] MEDS ORDERED: ENOXAPARIN SODIUM INJ 100 MG/1 ML DISP.SYRIN SUBCUT ONE (00:53)
[2017-01-25] MEDS ORDERED: ENOXAPARIN SODIUM INJ 120 MG/0.8 ML DISP.SYRIN SUBCUT ONE (00:54)
[2017-01-25] MEDS: IPRATROPIUM/ALBUTEROL 0.5-2.5 MG/3 ML AMPUL NEB SCH ×4 (01:18→20:05)
[2017-01-25] MEDS: PROPOFOL 100 ML IV PRN ×8 (01:54→23:33)
[2017-01-25] MEDS: VANCOMYCIN HCL 1,250 MG in DEXTROSE 5%-WATER 250 ML IV SCH ×3 (01:54→17:15)
[2017-01-25] MEDS: FENTANYL CITRATE INJ/PF 100 MCG/2 ML AMPUL IV PRN ×3 (02:18→12:20)
[2017-01-25] MEDS: METHYLPREDNISOLONE INJ 125 MG/2 ML SDV IV SCH ×5 (02:41→23:34)
[2017-01-25] MEDS: MIDAZOLAM HCL 100 ML IV PRN ×5 (02:42→21:59)
[2017-01-25 04:10] LABS: ABSOLUTE MONOCYTES (AUTO) 0.6 10^3/uL (0.1-1.4); BASOPHILS % (AUTO) 0.1 % (0-2); EOSINOPHILS % (AUTO) 0.1 % (0-6); HEMOGLOBIN 14.3 g/dL (13.5-17.0); HGB HCT DIFFERENCE -0.1; LYMPHOCYTES % (AUTO) 6.2 % (13-45); MEAN CORPUSCULAR HEMOGLOBIN 31.6 pg (27.0-33.4); MEAN CORPUSCULAR HGB CONC 33.3 g/dL (32.0-36.0); MEAN CORPUSCULAR VOLUME 95 fl (80-97); MONOCYTES % (AUTO) 3.8 % (3-13); RED BLOOD COUNT 4.53 10^6/uL (4.35-5.55); RED CELL DISTRIBUTION WIDTH 15.7 % (11.5-14.0); SEGMENTED NEUTROPHILS % (AUTO) 89.8 % (42-78); WHITE BLOOD COUNT 15.6 10^3/uL (4.0-10.5)
[2017-01-25 04:27] LABS: ALANINE AMINOTRANSFERASE 142 U/L (21-72); ALBUMIN 2.8 g/dL (3.5-5.0); ALKALINE PHOSPHATASE 60 U/L (38-126); ANION GAP 6 (5-19); ASPARTATE AMINO TRANSFERASE 462 U/L (17-59); BILIRUBIN,TOTAL 0.4 mg/dL (0.2-1.3); BLOOD UREA NITROGEN 11 mg/dL (7-20); CALCIUM 8.1 mg/dL (8.4-10.2); CARBON DIOXIDE 25 mmol/L (22-30); CHLORIDE 110 mmol/L (98-107); CREATININE RESULT 0.71 mg/dL (0.52-1.25); GLUCOSE 221 mg/dL (75-110); MAGNESIUM 2.4 mg/dL (1.6-2.3); PHOSPHORUS 2.3 mg/dL (2.5-4.5); POTASSIUM 3.8 mmol/L (3.6-5.0); SODIUM 141.1 mmol/L (137-145); TOTAL PROTEIN 6.1 g/dL (6.3-8.2)
[2017-01-25 04:35] LABS: ARTERIAL BLOOD BASE EXCESS 1.4 mmol/L; ARTERIAL BLOOD O2 SATURATION 95.8 % (94-98)
[2017-01-25] MEDS: PHOSPHORUS #1 250 MG TABLET NG SCH ×4 (08:21→21:58)
[2017-01-25] MEDS: ACETYLCYSTEINE 20% SOLN 800 MG/4 ML VIAL.NEB NEB SCH ×2 (08:23→20:05)
[2017-01-25] MEDS: NORMAL SALINE 1000 ML 1,000 ML with THIAMINE HCL 100 MG, MVI, ADULT NO.1 WITH VIT K 10 ... IV PRN ×4 (09:38)
[2017-01-25] MEDS: LORATADINE 10 MG TABLET NG SCH (09:38)
[2017-01-25] MEDS: NICOTINE 21 MG/24 HR PATCH.TD24 TD SCH (09:38)
[2017-01-25] MEDS: PANTOPRAZOLE SODIUM 40 MG VIAL IV SCH ×2 (09:38→21:58)
[2017-01-25] MEDS: ENOXAPARIN SODIUM INJ 120 MG/0.8 ML DISP.SYRIN SUBCUT SCH ×2 (09:44→21:59)
[2017-01-25] MEDS ORDERED: FUROSEMIDE INJ/PF 20 MG/2 ML SDV IV ONE (10:41)
[2017-01-25] MEDS: PREGABALIN 100 MG CAPSULE PO SCH ×3 (11:21→17:15)
[2017-01-25] MEDS: SILVER SULFADIAZINE 1% CREAM 25 GM TP SCH (11:25)
--- NOTE | 2017-01-25 14:15 | PDOC PROGRESS REPORT ---
Subjective Progress Note for:: 01/25/17 Subjective:: Intubated and sedated Physical Exam Vital Signs: Temp Pulse Resp BP Pulse Ox 98.6 F 71 23 H 110/65 94 01/25/17 08:00 01/25/17 08:00 01/25/17 08:00 01/25/17 08:00 01/25/17 08:00 Intake & Output 01/24/17 01/25/17 01/26/17 06:59 06:59 06:59 Intake Total 5729 Output Total 3150 90 Balance 2579 -90 Weight 122.8 kg General appearance: PRESENT: no acute distress, disheveled Head exam: PRESENT: atraumatic, normocephalic Eye exam: PRESENT: conjunctiva pale Mouth exam: PRESENT: dry mucosa, neck supple, other - ET tube in place Neck exam: ABSENT: carotid bruit, JVD, lymphadenopathy, thyromegaly Respiratory exam: PRESENT: decreased breath sounds, prolonged expiratory phas, rhonchi, unlabored Cardiovascular exam: PRESENT: RRR, +S1 Pulses: PRESENT: normal radial pulses GI/Abdominal exam: PRESENT: normal bowel sounds, soft. ABSENT: distended, guarding, mass, organolmegaly, rebound, tenderness Rectal exam: PRESENT: deferred Gentrourinary exam: PRESENT: indwelling catheter Musculoskeletal exam: PRESENT: normal inspection Skin exam: PRESENT: dry, warm Results Laboratory Results: 01/25/17 03:58 01/25/17 03:58 01/24/17 01/25/17 01/25/17 12:00 03:58 03:58 WBC 15.6 H RBC 4.53 Hgb 14.3 Hct 43.0 MCV 95 MCH 31.6 MCHC 33.3 RDW 15.7 H Plt Count 171 Seg Neutrophils % 89.8 H Lymphocytes % 6.2 L Monocytes % 3.8 Eosinophils % 0.1 Basophils % 0.1 Absolute Neutrophils 14.0 H Absolute Lymphocytes 1.0 Absolute Monocytes 0.6 Absolute Eosinophils 0.0 Absolute Basophils 0.0 Carbonic Acid 1.61 H HCO3/H2CO3 Ratio 16:1 ABG pH 7.30 L ABG pCO2 53.5 H ABG pO2 92.1 ABG HCO3 25.8 ABG O2 Saturation 96.2 ABG Base Excess -1.5 FiO2 65% Sodium 141.1 Potassium 3.8 Chloride 110 H Carbon Dioxide 25 Anion Gap 6 BUN 11 Creatinine 0.71 Est GFR ( Amer) > 60 Est GFR (Non-Af Amer) > 60 Glucose 221 H Calcium 8.1 L Phosphorus 2.3 L Magnesium 2.4 H Total Bilirubin 0.4 AST 462 H ALT 142 H Alkaline Phosphatase 60 Total Protein 6.1 L Albumin 2.8 L 01/25/17 04:20 WBC RBC Hgb Hct MCV MCH MCHC RDW Plt Count Seg Neutrophils % Lymphocytes % Monocytes % Eosinophils % Basophils % Absolute Neutrophils Absolute Lymphocytes Absolute Monocytes Absolute Eosinophils Absolute Basophils Carbonic Acid 1.37 H HCO3/H2CO3 Ratio 19:1 ABG pH 7.39 ABG pCO2 45.4 H ABG pO2 81.0 ABG HCO3 26.9 H ABG O2 Saturation 95.8 ABG Base Excess 1.4 FiO2 60% Sodium Potassium Chloride Carbon Dioxide Anion Gap BUN Creatinine Est GFR ( Amer) Est GFR (Non-Af Amer) Glucose Calcium Phosphorus Magnesium Total Bilirubin AST ALT Alkaline Phosphatase Total Protein Albumin Impressions: Chest X-Ray 01/25/17 06:00 IMPRESSION: Minimal interval improvement in the bilateral airspace densities as noted above. Other findings as noted above Assessment & Plan - Diagnosis (1) Acute and chronic respiratory failure with hypoxia Is this a current diagnosis for this admission?: YesPlan: mechanical vent supp O2,bronchodialtor abx (2) GERD (gastroesophageal reflux disease) Qualifiers: Esophagitis presence: esophagitis presence not specified Qualified Code(s): K21.9 - Gastro-esophageal reflux disease without esophagitis Is this a current diagnosis for this admission?: Yes (3) Cellulitis of right leg Is this a current diagnosis for this admission?: Yes (4) Obesity, Class III, BMI 40-49.9 (morbid obesity) Is this a current diagnosis for this admission?: Yes (5) Peripheral vascular disease Is this a current diagnosis for this admission?: Yes (6) Alcohol dependency Qualifiers: Substance use status: unspecified alcohol-induced disorder Qualified Code(s): F10.29 - Alcohol dependence with unspecified alcohol-induced disorder Is this a current diagnosis for this admission?: Yes (7) COPD (chronic obstructive pulmonary disease) Qualifiers: COPD type: unspecified COPD Qualified Code(s): J44.9 - Chronic obstructive pulmonary disease, unspecified Is this a current diagnosis for this admission?: YesPlan: end stage O2 dependent in active smoker (8) RONIT (obstructive sleep apnea) Is this a current diagnosis for this admission?: Yes (9) Tobacco use disorder Is this a current diagnosis for this admission?: YesPlan: transdermal nicotine - Time Critical Time spent with patient: 35 or more minutes - 45 minutes
[2017-01-25] MEDS ORDERED: FENTANYL 25 MCG/HR PATCH.TD72 TD ONE (18:14)
[2017-01-25] MEDS ORDERED: HYDROMORPHONE HCL INJ/PF 2 MG/ML AMPULE IV ONE (18:15)
[2017-01-25] MEDS ORDERED: HYDROMORPHONE HCL INJ/PF 2 MG/ML AMPULE ONE (18:31)
[2017-01-25] MEDS: LEVOFLOXACIN 750 MG/D5W RTU 750 MG/150 ML RTUPB IV SCH (21:58)
[2017-01-25] MEDS: MONTELUKAST SODIUM 10 MG TABLET NG SCH (21:59)
[2017-01-26] MEDS: VANCOMYCIN HCL 1,250 MG in DEXTROSE 5%-WATER 250 ML IV SCH ×3 (02:17→17:12)
[2017-01-26] MEDS: PROPOFOL 100 ML IV PRN ×6 (02:17→18:37)
[2017-01-26] MEDS: IPRATROPIUM/ALBUTEROL 0.5-2.5 MG/3 ML AMPUL NEB SCH ×4 (02:40→20:13)
[2017-01-26] MEDS: HYDROMORPHONE HCL INJ/PF 2 MG/ML AMPULE IV PRN ×2 (04:57→22:39)
[2017-01-26] MEDS: DIAZEPAM 5 MG TABLET NG SCH ×4 (05:00→23:36)
[2017-01-26] MEDS: METHYLPREDNISOLONE INJ 125 MG/2 ML SDV IV SCH ×4 (05:00→23:37)
[2017-01-26] MEDS: PIPERACILLIN SODIUM/TAZOBACTAM 4.5 GM in NORMAL SALINE 100 ML IV SCH ×4 (05:01→23:36)
[2017-01-26 05:09] LABS: ARTERIAL BLOOD BASE EXCESS 2.7 mmol/L; ARTERIAL BLOOD O2 SATURATION 96.4 % (94-98)
[2017-01-26 05:18] LABS: BLOOD UREA NITROGEN 12 mg/dL (7-20); CREATININE RESULT 0.75 mg/dL (0.52-1.25); GLUCOSE 204 mg/dL (75-110); MAGNESIUM 2.4 mg/dL (1.6-2.3)
[2017-01-26 05:38] LABS: AMORPHOUS SEDIMENT,URINE TRACE /HPF; APPEARANCE,URINE TURBID; BILIRUBIN,URINE NEGATIVE (NEGATIVE); GLUCOSE, URINE NEGATIVE (NEGATIVE); KETONES,URINE NEGATIVE (NEGATIVE); LEUKOCYTE ESTERASE,URINE NEGATIVE (NEGATIVE); NITRITE,URINE NEGATIVE (NEGATIVE); PROTEIN,URINE 30 mg/dL (NEGATIVE); URIC ACID CRYSTALS,URINE TOO NUMEROUS TO CNT /HPF; URINE SPECIFIC GRAVITY 1.026; UROBILINOGEN,URINE NEGATIVE mg/dL (<2.0)
[2017-01-26 05:43] LABS: CARBON DIOXIDE 27 mmol/L (22-30); CHLORIDE 110 mmol/L (98-107); POTASSIUM 3.7 mmol/L (3.6-5.0); SODIUM 141.3 mmol/L (137-145)
[2017-01-26 05:47] LABS: ANION GAP 4 (5-19)
[2017-01-26] MEDS: MIDAZOLAM HCL 100 ML IV PRN ×2 (07:43→23:37)
[2017-01-26] MEDS: PHOSPHORUS #1 250 MG TABLET NG SCH ×4 (07:43→22:14)
--- NOTE | 2017-01-26 07:46 | PDOC PROGRESS REPORT ---
Subjective Progress Note for:: 01/25/17 Subjective:: Unable to obtain review of systems secondary to intubated and sedated status. No acute events overnight Physical Exam Vital Signs: Temp Pulse Resp BP Pulse Ox 97.3 F 74 22 H 117/71 92 01/24/17 16:00 01/25/17 01:28 01/25/17 01:28 01/25/17 06:08 01/25/17 06:08 Intake & Output 01/24/17 01/25/17 01/26/17 06:59 06:59 06:59 Intake Total 5729 Output Total 3150 Balance 2579 Weight 122.8 kg Exam: General: Intubated and sedated, overbreathing the vent HEENT: AT/NC, PERRL, oropharynx is moist, pink, no scleral icterus, no conjunctival injection Neck: No JVD, trachea midline Chest: Diminished bases bilaterally CV: Regular rate and rhythm, normal S1 and S2, no rub, or gallop Abdomen: Protuberant, prominent ventral and umbilical hernias which are easily reducible, caput medusa, soft, nondistended, active bowel sounds Extremities: No cyanosis, clubbing; 3+edema; lichenification of bilateral feet Results Laboratory Results: 01/25/17 03:58 01/25/17 03:58 01/24/17 01/25/17 01/25/17 12:00 03:58 03:58 WBC 15.6 H RBC 4.53 Hgb 14.3 Hct 43.0 MCV 95 MCH 31.6 MCHC 33.3 RDW 15.7 H Plt Count 171 Seg Neutrophils % 89.8 H Lymphocytes % 6.2 L Monocytes % 3.8 Eosinophils % 0.1 Basophils % 0.1 Absolute Neutrophils 14.0 H Absolute Lymphocytes 1.0 Absolute Monocytes 0.6 Absolute Eosinophils 0.0 Absolute Basophils 0.0 Carbonic Acid 1.61 H HCO3/H2CO3 Ratio 16:1 ABG pH 7.30 L ABG pCO2 53.5 H ABG pO2 92.1 ABG HCO3 25.8 ABG O2 Saturation 96.2 ABG Base Excess -1.5 FiO2 65% Sodium 141.1 Potassium 3.8 Chloride 110 H Carbon Dioxide 25 Anion Gap 6 BUN 11 Creatinine 0.71 Est GFR ( Amer) > 60 Est GFR (Non-Af Amer) > 60 Glucose 221 H Calcium 8.1 L Phosphorus 2.3 L Magnesium 2.4 H Total Bilirubin 0.4 AST 462 H ALT 142 H Alkaline Phosphatase 60 Total Protein 6.1 L Albumin 2.8 L 01/25/17 04:20 WBC RBC Hgb Hct MCV MCH MCHC RDW Plt Count Seg Neutrophils % Lymphocytes % Monocytes % Eosinophils % Basophils % Absolute Neutrophils Absolute Lymphocytes Absolute Monocytes Absolute Eosinophils Absolute Basophils Carbonic Acid 1.37 H HCO3/H2CO3 Ratio 19:1 ABG pH 7.39 ABG pCO2 45.4 H ABG pO2 81.0 ABG HCO3 26.9 H ABG O2 Saturation 95.8 ABG Base Excess 1.4 FiO2 60% Sodium Potassium Chloride Carbon Dioxide Anion Gap BUN Creatinine Est GFR ( Amer) Est GFR (Non-Af Amer) Glucose Calcium Phosphorus Magnesium Total Bilirubin AST ALT Alkaline Phosphatase Total Protein Albumin Impressions: Chest X-Ray 01/25/17 06:00 IMPRESSION: Minimal interval improvement in the bilateral airspace densities as noted above. Other findings as noted above Assessment & Plan - Diagnosis (1) Acute and chronic respiratory failure with hypoxia Is this a current diagnosis for this admission?: YesPlan: Appreciate pulmonary input for ventilator management (2) GERD (gastroesophageal reflux disease) Qualifiers: Esophagitis presence: esophagitis presence not specified Qualified Code(s): K21.9 - Gastro-esophageal reflux disease without esophagitis Is this a current diagnosis for this admission?: YesPlan: Continue PPI (3) Pneumonia Qualifiers: Pneumonia type: due to unspecified organism Laterality: bilateral Lung location: unspecified part of lung Qualified Code(s): J18.9 - Pneumonia, unspecified organism Is this a current diagnosis for this admission?: YesPlan: On vancomycin day #2 and Zosyn day #2. 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 Prior MRSA was susceptible to vancomycin with an JOSHUA of 1. Continue aggressive pulmonary toileting including chest physiotherapy. (4) Lymphedema Plan: Unna Boot (5) Opiate dependence, continuous Plan: We'll place patient on fentanyl patch and change IV fentanyl to Dilaudid. (6) Peripheral vascular disease Is this a current diagnosis for this admission?: Yes (7) Alcohol dependency Qualifiers: Substance use status: unspecified alcohol-induced disorder Qualified Code(s): F10.29 - Alcohol dependence with unspecified alcohol-induced disorder Is this a current diagnosis for this admission?: YesPlan: Increase patient's scheduled Valium to 10 mg NG every 6 (8) CAD (coronary artery disease) Qualifiers: Coronary Disease-Associated Artery/Lesion type: [place] artery [place] vs. transplanted heart: [place] heart Associated angina: without angina Qualified Code(s): I25.10 - Atherosclerotic heart disease of [place] coronary artery without angina pectoris Is this a current diagnosis for this admission?: Yes (9) COPD (chronic obstructive pulmonary disease) Qualifiers: COPD type: unspecified COPD Qualified Code(s): J44.9 - Chronic obstructive pulmonary disease, unspecified Is this a current diagnosis for this admission?: YesPlan: Doing well, decrease Solu-Medrol to 80mg IV every 6 (10) History of DVT (deep vein thrombosis) Is this a current diagnosis for this admission?: Yes (11) M[facility] current use of anticoagulant therapy Is this a current diagnosis for this admission?: Yes (12) RONIT (obstructive sleep apnea) Is this a current diagnosis for this admission?: Yes (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
[2017-01-26 07:49] LABS: ABSOLUTE LYMPHOCYTES (AUTO) 0.9 10^3/uL (0.5-4.7); ABSOLUTE MONOCYTES (AUTO) 0.8 10^3/uL (0.1-1.4); ABSOLUTE NEUT (AUTO) 12.6 10^3/uL (1.7-8.2); HEMATOCRIT 42.6 % (37.9-51.0); HEMOGLOBIN 14.3 g/dL (13.5-17.0); HGB HCT DIFFERENCE 0.3; LYMPHOCYTES % (AUTO) 6.3 % (13-45); MEAN CORPUSCULAR HEMOGLOBIN 32.3 pg (27.0-33.4); MEAN CORPUSCULAR HGB CONC 33.5 g/dL (32.0-36.0); MEAN CORPUSCULAR VOLUME 96 fl (80-97); MONOCYTES % (AUTO) 5.3 % (3-13); RED BLOOD COUNT 4.42 10^6/uL (4.35-5.55); RED CELL DISTRIBUTION WIDTH 15.8 % (11.5-14.0); SEGMENTED NEUTROPHILS % (AUTO) 88.4 % (42-78); WHITE BLOOD COUNT 14.3 10^3/uL (4.0-10.5)
[2017-01-26] MEDS: ACETYLCYSTEINE 20% SOLN 800 MG/4 ML VIAL.NEB NEB SCH ×2 (07:54→20:12)
[2017-01-26] MEDS ORDERED: POTASSIUM CHLORIDE 20 MEQ/15 ML UDCUP NG ONE (09:00)
[2017-01-26] MEDS ORDERED: FUROSEMIDE INJ/PF 20 MG/2 ML SDV IV SCH (10:00)
[2017-01-26] MEDS: SPIRONOLACTONE 25 MG TABLET NG SCH (10:24)
[2017-01-26] MEDS: LORATADINE 10 MG TABLET NG SCH (10:24)
[2017-01-26] MEDS: NICOTINE 21 MG/24 HR PATCH.TD24 TD SCH (10:25)
[2017-01-26] MEDS: PANTOPRAZOLE SODIUM 40 MG VIAL IV SCH ×2 (10:25→22:14)
[2017-01-26] MEDS: PREGABALIN 100 MG CAPSULE PO SCH ×3 (10:25→17:11)
[2017-01-26] MEDS: ENOXAPARIN SODIUM INJ 120 MG/0.8 ML DISP.SYRIN SUBCUT SCH ×2 (10:28→22:13)
--- NOTE | 2017-01-26 11:46 | PDOC PROGRESS REPORT ---
Subjective Progress Note for:: 01/26/17 Subjective:: Intubated and sedated Physical Exam Vital Signs: Temp Pulse Resp BP Pulse Ox 98.2 F 58 L 24 H 123/66 92 01/26/17 08:00 01/26/17 08:00 01/26/17 08:00 01/26/17 08:00 01/26/17 08:00 Intake & Output 01/25/17 01/26/17 01/27/17 06:59 06:59 06:59 Intake Total 5729 4142 Output Total 3150 2105 150 Balance 2579 2037 -150 Weight 122.8 kg 123.6 kg General appearance: PRESENT: no acute distress, disheveled, morbidly obese Head exam: PRESENT: atraumatic, normocephalic Eye exam: PRESENT: conjunctiva pale Mouth exam: PRESENT: neck supple, tongue midline, other - Endotracheal tube in place Neck exam: ABSENT: carotid bruit, JVD, lymphadenopathy, thyromegaly Respiratory exam: PRESENT: decreased breath sounds, prolonged expiratory phas, rales, rhonchi, symmetrical, unlabored Cardiovascular exam: PRESENT: RRR, +S1, +S2 Pulses: PRESENT: normal radial pulses GI/Abdominal exam: PRESENT: normal bowel sounds, soft. ABSENT: distended, guarding, mass, organolmegaly, rebound, tenderness Rectal exam: PRESENT: deferred Gentrourinary exam: PRESENT: indwelling catheter Musculoskeletal exam: PRESENT: normal inspection Skin exam: PRESENT: dry, warm Results Laboratory Results: 01/26/17 04:27 01/26/17 04:27 01/26/17 01/26/17 01/26/17 04:27 04:27 04:50 WBC 14.3 H RBC 4.42 Hgb 14.3 Hct 42.6 MCV 96 MCH 32.3 MCHC 33.5 RDW 15.8 H Plt Count 208 Seg Neutrophils % 88.4 H Lymphocytes % 6.3 L Monocytes % 5.3 Eosinophils % 0.0 Basophils % 0.0 Absolute Neutrophils 12.6 H Absolute Lymphocytes 0.9 Absolute Monocytes 0.8 Absolute Eosinophils 0.0 Absolute Basophils 0.0 Carbonic Acid 1.38 H HCO3/H2CO3 Ratio 20:1 ABG pH 7.41 ABG pCO2 45.8 H ABG pO2 85.0 ABG HCO3 28.1 H ABG O2 Saturation 96.4 ABG Base Excess 2.7 FiO2 65% Sodium 141.3 Potassium 3.7 Chloride 110 H Carbon Dioxide 27 Anion Gap 4 L BUN 12 Creatinine 0.75 Est GFR ( Amer) > 60 Est GFR (Non-Af Amer) > 60 Glucose 204 H Calcium 8.0 L Phosphorus 3.0 Magnesium 2.4 H Urine Color Urine Appearance Urine pH Ur Specific [place] Urine Protein Urine Glucose (UA) Urine Ketones Urine Blood Urine Nitrite Ur Leukocyte Esterase Urine WBC (Auto) Urine RBC (Auto) 01/26/17 04:50 WBC RBC Hgb Hct MCV MCH MCHC RDW Plt Count Seg Neutrophils % Lymphocytes % Monocytes % Eosinophils % Basophils % Absolute Neutrophils Absolute Lymphocytes Absolute Monocytes Absolute Eosinophils Absolute Basophils Carbonic Acid HCO3/H2CO3 Ratio ABG pH ABG pCO2 ABG pO2 ABG HCO3 ABG O2 Saturation ABG Base Excess FiO2 Sodium Potassium Chloride Carbon Dioxide Anion Gap BUN Creatinine Est GFR ( Amer) Est GFR (Non-Af Amer) Glucose Calcium Phosphorus Magnesium Urine Color YELLOW Urine Appearance TURBID Urine pH 5.0 Ur Specific [place] 1.026 Urine Protein 30 H Urine Glucose (UA) NEGATIVE Urine Ketones NEGATIVE Urine Blood MODERATE H Urine Nitrite NEGATIVE Ur Leukocyte Esterase NEGATIVE Urine WBC (Auto) 60 Urine RBC (Auto) >182 Impressions: Chest X-Ray 01/26/17 06:00 IMPRESSION: Small bibasilar opacity -effusion and mild interstitial prominence. Lines and tubes. Little or no interval change. Assessment & Plan - Diagnosis (1) Acute and chronic respiratory failure with hypoxia Is this a current diagnosis for this admission?: YesPlan: mechanical vent supp O2,bronchodialtor abx (2) GERD (gastroesophageal reflux disease) Qualifiers: Esophagitis presence: esophagitis presence not specified Qualified Code(s): K21.9 - Gastro-esophageal reflux disease without esophagitis Is this a current diagnosis for this admission?: Yes (3) Cellulitis of right leg Is this a current diagnosis for this admission?: Yes (4) Obesity, Class III, BMI 40-49.9 (morbid obesity) Is this a current diagnosis for this admission?: Yes (5) Peripheral vascular disease Is this a current diagnosis for this admission?: Yes (6) Alcohol dependency Qualifiers: Substance use status: unspecified alcohol-induced disorder Qualified Code(s): F10.29 - Alcohol dependence with unspecified alcohol-induced disorder Is this a current diagnosis for this admission?: Yes (7) COPD (chronic obstructive pulmonary disease) Qualifiers: COPD type: unspecified COPD Qualified Code(s): J44.9 - Chronic obstructive pulmonary disease, unspecified Is this a current diagnosis for this admission?: YesPlan: end stage O2 dependent in active smoker (8) RONIT (obstructive sleep apnea) Is this a current diagnosis for this admission?: YesPlan: We will need a sleep study after discharge (9) Tobacco use disorder Is this a current diagnosis for this admission?: YesPlan: transdermal nicotine
[2017-01-26 12:21] LABS: ARTERIAL BLOOD BASE EXCESS 1.9 mmol/L; ARTERIAL BLOOD O2 SATURATION 96.1 % (94-98)
[2017-01-26] MEDS: SILVER SULFADIAZINE 1% CREAM 25 GM TP SCH (12:39)
[2017-01-26] MEDS: NORMAL SALINE 1000 ML 1,000 ML IV PRN (13:59)
[2017-01-26] MEDS ORDERED: NORMAL SALINE 1000 ML 1,000 ML IV PRN (14:14)
--- NOTE | 2017-01-26 14:19 | PDOC PROGRESS REPORT ---
Subjective Progress Note for:: 01/26/17 Subjective:: Unable to obtain review of systems secondary to intubated and sedated status. No acute events overnight. Patient has improved work of breathing with changing his narcotics. Physical Exam Vital Signs: Temp Pulse Resp BP Pulse Ox 98.1 F 63 24 H 125/72 92 01/26/17 05:44 01/26/17 02:40 01/26/17 02:40 01/26/17 05:40 01/26/17 06:00 Intake & Output 01/25/17 01/26/17 01/27/17 06:59 06:59 06:59 Intake Total 5729 4142 Output Total 3150 5 Balance [id number] Weight 122.8 kg 123.6 kg Exam: General: Intubated and sedated, overbreathing the vent HEENT: AT/NC, PERRL, oropharynx is moist, pink, no scleral icterus, no conjunctival injection Neck: No JVD, trachea midline Chest: Rhonchi left lower, coarse throughout CV: Regular rate and rhythm, normal S1 and S2, no rub, or gallop Abdomen: Protuberant, prominent ventral and umbilical hernias which are easily reducible, caput medusa, soft, nondistended, active bowel sounds Extremities: No cyanosis, clubbing; legs currently an Unna boot; lichenification of bilateral feet Results Laboratory Results: 01/26/17 04:27 01/26/17 01/26/17 01/26/17 04:27 04:50 04:50 Carbonic Acid 1.38 H HCO3/H2CO3 Ratio 20:1 ABG pH 7.41 ABG pCO2 45.8 H ABG pO2 85.0 ABG HCO3 28.1 H ABG O2 Saturation 96.4 ABG Base Excess 2.7 FiO2 65% Sodium 141.3 Potassium 3.7 Chloride 110 H Carbon Dioxide 27 Anion Gap 4 L BUN 12 Creatinine 0.75 Est GFR ( Amer) > 60 Est GFR (Non-Af Amer) > 60 Glucose 204 H Calcium 8.0 L Phosphorus 3.0 Magnesium 2.4 H Urine Color YELLOW Urine Appearance TURBID Urine pH 5.0 Ur Specific [place] 1.026 Urine Protein 30 H Urine Glucose (UA) NEGATIVE Urine Ketones NEGATIVE Urine Blood MODERATE H Urine Nitrite NEGATIVE Ur Leukocyte Esterase NEGATIVE Urine WBC (Auto) 60 Urine RBC (Auto) >182 Impressions: Chest X-Ray 01/26/17 06:00 IMPRESSION: Small bibasilar opacity -effusion and mild interstitial prominence. Lines and tubes. Little or no interval change. Assessment & Plan - Diagnosis (1) Acute and chronic respiratory failure with hypoxia Is this a current diagnosis for this admission?: YesPlan: Appreciate pulmonary input for ventilator management (2) GERD (gastroesophageal reflux disease) Qualifiers: Esophagitis presence: esophagitis presence not specified Qualified Code(s): K21.9 - Gastro-esophageal reflux disease without esophagitis Is this a current diagnosis for this admission?: YesPlan: Continue PPI (3) Pneumonia Qualifiers: Pneumonia type: due to unspecified organism Laterality: bilateral Lung location: unspecified part of lung Qualified Code(s): J18.9 - Pneumonia, unspecified organism Is this a current diagnosis for this admission?: YesPlan: On vancomycin day #3 and Zosyn day #3. 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 Prior MRSA was susceptible to vancomycin with an JOSHUA of 1. Continue aggressive pulmonary toileting including chest physiotherapy. (4) Lymphedema Is this a current diagnosis for this admission?: YesPlan: Unna Boot (5) Opiate dependence, continuous Is this a current diagnosis for this admission?: YesPlan: We'll place patient on fentanyl patch and Dilaudid. (6) Peripheral vascular disease Is this a current diagnosis for this admission?: Yes (7) Alcohol dependency Qualifiers: Substance use status: unspecified alcohol-induced disorder Qualified Code(s): F10.29 - Alcohol dependence with unspecified alcohol-induced disorder Is this a current diagnosis for this admission?: YesPlan: Scheduled Valium to 10 mg NG every 6. Thiamine and folic acid daily. (8) CAD (coronary artery disease) Qualifiers: Coronary Disease-Associated Artery/Lesion type: [place] artery [place] vs. transplanted heart: [place] heart Associated angina: without angina Qualified Code(s): I25.10 - Atherosclerotic heart disease of [place] coronary artery without angina pectoris Is this a current diagnosis for this admission?: Yes (9) COPD (chronic obstructive pulmonary disease) Qualifiers: COPD type: unspecified COPD Qualified Code(s): J44.9 - Chronic obstructive pulmonary disease, unspecified Is this a current diagnosis for this admission?: YesPlan: Doing well, decrease Solu-Medrol to 60mg IV every 6 (10) History of DVT (deep vein thrombosis) Is this a current diagnosis for this admission?: YesPlan: Continue treatment dose Lovenox. (11) residential current use of anticoagulant therapy Is this a current diagnosis for this admission?: YesPlan: Normally on Xarelto. 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
[2017-01-26] MEDS: NORMAL SALINE 1000 ML 1,000 ML with THIAMINE HCL 100 MG, MVI, ADULT NO.1 WITH VIT K 10 ... IV PRN ×4 (14:57)
[2017-01-26] MEDS: LACTULOSE SYRUP 20 GM/30 ML UDCUP NG SCH ×2 (17:10→22:15)
[2017-01-26] MEDS: FUROSEMIDE INJ/PF 20 MG/2 ML SDV IV SCH (22:14)
[2017-01-26] MEDS: MONTELUKAST SODIUM 10 MG TABLET NG SCH (22:14)
[2017-01-26] MEDS: LEVOFLOXACIN 750 MG/D5W RTU 750 MG/150 ML RTUPB IV SCH (22:15)
[2017-01-26] MEDS: INSULIN LISPRO 100 UNIT/ML 3 ML VIAL SUBCUT PRN (23:37)
[2017-01-27] MEDS: PROPOFOL 100 ML IV PRN ×7 (00:04→21:41)
[2017-01-27] MEDS: IPRATROPIUM/ALBUTEROL 0.5-2.5 MG/3 ML AMPUL NEB SCH ×4 (01:39→20:44)
[2017-01-27] MEDS: VANCOMYCIN HCL 1,250 MG in DEXTROSE 5%-WATER 250 ML IV SCH ×3 (02:24→17:28)
[2017-01-27] MEDS: LACTULOSE SYRUP 20 GM/30 ML UDCUP NG SCH ×2 (02:24→06:12)
[2017-01-27 04:00] LABS: HEMATOCRIT 42.7 % (37.9-51.0); HEMOGLOBIN 14.7 g/dL (13.5-17.0); HGB HCT DIFFERENCE 1.4; MEAN CORPUSCULAR HEMOGLOBIN 32.5 pg (27.0-33.4); MEAN CORPUSCULAR HGB CONC 34.4 g/dL (32.0-36.0); MEAN CORPUSCULAR VOLUME 95 fl (80-97); RED BLOOD COUNT 4.52 10^6/uL (4.35-5.55); RED CELL DISTRIBUTION WIDTH 15.3 % (11.5-14.0); WHITE BLOOD COUNT 10.9 10^3/uL (4.0-10.5)
[2017-01-27 04:12] LABS: ANION GAP 5 (5-19); BLOOD UREA NITROGEN 19 mg/dL (7-20); CALCIUM 8.2 mg/dL (8.4-10.2); CARBON DIOXIDE 27 mmol/L (22-30); CHLORIDE 111 mmol/L (98-107); CREATININE RESULT 0.73 mg/dL (0.52-1.25); GLUCOSE 186 mg/dL (75-110); MAGNESIUM 2.4 mg/dL (1.6-2.3); PHOSPHORUS 3.1 mg/dL (2.5-4.5); POTASSIUM 3.6 mmol/L (3.6-5.0); SODIUM 143.1 mmol/L (137-145); TRIGLYCERIDES 258 mg/dL (<150)
[2017-01-27] MEDS: FUROSEMIDE INJ/PF 20 MG/2 ML SDV IV SCH ×3 (06:11→21:43)
[2017-01-27] MEDS: PIPERACILLIN SODIUM/TAZOBACTAM 4.5 GM in NORMAL SALINE 100 ML IV SCH ×3 (06:11→17:28)
[2017-01-27] MEDS: METHYLPREDNISOLONE INJ 125 MG/2 ML SDV IV SCH (06:12)
[2017-01-27] MEDS: DIAZEPAM 5 MG TABLET NG SCH ×4 (06:12→20:31)
[2017-01-27 06:22] LABS: ARTERIAL BLOOD BASE EXCESS 4.3 mmol/L; ARTERIAL BLOOD O2 SATURATION 97.1 % (94-98)
[2017-01-27] MEDS: INSULIN LISPRO 100 UNIT/ML 3 ML VIAL SUBCUT PRN ×2 (06:35→17:34)
[2017-01-27 06:44] LABS: APPEARANCE,URINE CLEAR; BILIRUBIN,URINE NEGATIVE (NEGATIVE); GLUCOSE, URINE NEGATIVE (NEGATIVE); KETONES,URINE NEGATIVE (NEGATIVE); LEUKOCYTE ESTERASE,URINE NEGATIVE (NEGATIVE); NITRITE,URINE NEGATIVE (NEGATIVE); PROTEIN,URINE NEGATIVE (NEGATIVE); URINE SPECIFIC GRAVITY 1.025; UROBILINOGEN,URINE NEGATIVE mg/dL (<2.0)
[2017-01-27] MEDS ORDERED: POTASSIUM CHLORIDE 20 MEQ/15 ML UDCUP NG ONE (08:00)
[2017-01-27] MEDS: HYDROMORPHONE HCL INJ/PF 2 MG/ML AMPULE IV PRN ×3 (08:08→17:29)
[2017-01-27] MEDS: ACETYLCYSTEINE 20% SOLN 800 MG/4 ML VIAL.NEB NEB SCH ×2 (08:28→20:44)
[2017-01-27] MEDS ORDERED: METHYLPREDNISOLONE INJ 125 MG/2 ML SDV IV SCH (08:48)
[2017-01-27] MEDS: PREGABALIN 100 MG CAPSULE PO SCH ×3 (08:56→17:28)
[2017-01-27] MEDS: LORATADINE 10 MG TABLET NG SCH (08:56)
[2017-01-27] MEDS: PHOSPHORUS #1 250 MG TABLET NG SCH ×4 (08:56→21:43)
[2017-01-27] MEDS: NICOTINE 21 MG/24 HR PATCH.TD24 TD SCH (08:56)
--- NOTE | 2017-01-27 08:58 | PDOC PROGRESS REPORT ---
Subjective Progress Note for:: 01/27/17 Subjective:: Patient remains intubated and sedated with no acute events overnight. Having difficulty decrease in patient's FiO2. Unable to obtain review of systems secondary to intubated and sedated status. Physical Exam Vital Signs: Temp Pulse Resp BP Pulse Ox 99.0 F 87 24 H 118/67 94 01/27/17 03:53 01/27/17 08:00 01/27/17 06:10 01/27/17 06:10 01/27/17 06:10 Intake & Output 01/26/17 01/27/17 01/28/17 06:59 06:59 06:59 Intake Total 4142 4055 Output Total 2105 2885 400 Balance 2037 1170 -400 Weight 123.6 kg 123.3 kg Exam: General: Intubated and sedated, NAD HEENT: AT/NC, PERRL, oropharynx is moist, pink, no scleral icterus, no conjunctival injection Neck: No JVD, trachea midline Chest: CTAB, diminished bases CV: Regular rate and rhythm, normal S1 and S2, no rub, or gallop Abdomen: Protuberant, prominent ventral and umbilical hernias which are easily reducible, caput medusa, soft, nondistended, active bowel sounds Extremities: No cyanosis, clubbing; brawny edema bilateral legs, 2+ dependent edema, hyperkeratosis; lichenification of bilateral feet Results Laboratory Results: 01/27/17 03:51 01/27/17 03:51 01/26/17 01/27/17 01/27/17 12:05 03:51 03:51 WBC 10.9 H RBC 4.52 Hgb 14.7 Hct 42.7 MCV 95 MCH 32.5 MCHC 34.4 RDW 15.3 H Plt Count 175 Carbonic Acid 1.32 HCO3/H2CO3 Ratio 20:1 ABG pH 7.41 ABG pCO2 43.7 ABG pO2 81.7 ABG HCO3 27.0 H ABG O2 Saturation 96.1 ABG Base Excess 1.9 FiO2 65% Sodium 143.1 Potassium 3.6 Chloride 111 H Carbon Dioxide 27 Anion Gap 5 BUN 19 Creatinine 0.73 Est GFR ( Amer) > 60 Est GFR (Non-Af Amer) > 60 Glucose 186 H Calcium 8.2 L Phosphorus 3.1 Magnesium 2.4 H Triglycerides 258 H Urine Color Urine Appearance Urine pH Ur Specific [place] Urine Protein Urine Glucose (UA) Urine Ketones Urine Blood Urine Nitrite Ur Leukocyte Esterase Urine WBC (Auto) Urine RBC (Auto) 01/27/17 01/27/17 06:05 06:25 WBC RBC Hgb Hct MCV MCH MCHC RDW Plt Count Carbonic Acid 1.27 HCO3/H2CO3 Ratio 22:1 ABG pH 7.45 ABG pCO2 42.1 ABG pO2 88.3 ABG HCO3 28.7 H ABG O2 Saturation 97.1 ABG Base Excess 4.3 FiO2 65% Sodium Potassium Chloride Carbon Dioxide Anion Gap BUN Creatinine Est GFR ( Amer) Est GFR (Non-Af Amer) Glucose Calcium Phosphorus Magnesium Triglycerides Urine Color YELLOW Urine Appearance CLEAR Urine pH 5.0 Ur Specific [place] 1.025 Urine Protein NEGATIVE Urine Glucose (UA) NEGATIVE Urine Ketones NEGATIVE Urine Blood NEGATIVE Urine Nitrite NEGATIVE Ur Leukocyte Esterase NEGATIVE Urine WBC (Auto) 1 Urine RBC (Auto) 0 01/24/17 12:30 Nasophary (Mrsa Only) MRSA Surveillance Culture - Final MRSA RECOVERED 01/24/17 12:30 Catheterized Urine Urine Culture - Final NO GROWTH 2 DAYS Impressions: Chest X-Ray 01/27/17 06:00 IMPRESSION: Endotracheal tube. Increasing bibasilar patchy density/ fluid. Assessment & Plan - Diagnosis (1) Acute and chronic respiratory failure with hypoxia Is this a current diagnosis for this admission?: YesPlan: Appreciate pulmonary input for ventilator management (2) Pneumonia Qualifiers: Pneumonia type: due to unspecified organism Laterality: bilateral Lung location: unspecified part of lung Qualified Code(s): J18.9 - Pneumonia, unspecified organism Is this a current diagnosis for this admission?: YesPlan: On vancomycin day #4 and Zosyn day #4. 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 Prior MRSA was susceptible to vancomycin with an JOSHUA of 1. Continue aggressive pulmonary toileting including chest physiotherapy. (3) Lymphedema Is this a current diagnosis for this admission?: YesPlan: Unna Boot to be changed daily with Betadine applied to in between toes and Silvadene over any open areas with Telfa over this prior to wrap. (4) Opiate dependence, continuous Is this a current diagnosis for this admission?: YesPlan: Patient on fentanyl patch and Dilaudid. (5) Peripheral vascular disease Is this a current diagnosis for this admission?: Yes (6) Alcohol dependency Qualifiers: Substance use status: unspecified alcohol-induced disorder Qualified Code(s): F10.29 - Alcohol dependence with unspecified alcohol-induced disorder Is this a current diagnosis for this admission?: YesPlan: Scheduled Valium to 5 mg NG every 6. Thiamine and folic acid daily. (7) CAD (coronary artery disease) Qualifiers: Coronary Disease-Associated Artery/Lesion type: [place] artery [place] vs. transplanted heart: [place] heart Associated angina: without angina Qualified Code(s): I25.10 - Atherosclerotic heart disease of [place] coronary artery without angina pectoris Is this a current diagnosis for this admission?: Yes (8) COPD (chronic obstructive pulmonary disease) Qualifiers: COPD type: unspecified COPD Qualified Code(s): J44.9 - Chronic obstructive pulmonary disease, unspecified Is this a current diagnosis for this admission?: YesPlan: Doing well, decrease Solu-Medrol to 40mg IV every 6 (9) History of DVT (deep vein thrombosis) Is this a current diagnosis for this admission?: YesPlan: Although patient is on Eliquis as an outpatient, given his alcohol is him and his current presentation it is suspect whether patient is actually taking his medications at home. In light of previous DVT we will obtain an emergent CTA as we are unable to reach anyone who can make medical decisions for this patient. It is in his best interest to ensure that this is not a cause of his ongoing hypoxia. Consent was signed with Dr. guadalupe of pulmonary medicine. 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 Is this a current diagnosis for this admission?: YesPlan: Concern for gram-positive organisms (13) Tobacco use disorder Is this a current diagnosis for this admission?: Yes (14) GERD (gastroesophageal reflux disease) Qualifiers: Esophagitis presence: esophagitis presence not specified Qualified Code(s): K21.9 - Gastro-esophageal reflux disease without esophagitis Is this a current diagnosis for this admission?: YesPlan: Continue PPI (15) Morbid obesity Qualifiers: Obesity type: with alveolar hypoventilation Qualified Code(s): E66.2 - Morbid (severe) obesity with alveolar hypoventilation Is this a current diagnosis for this admission?: YesPlan: Of consult dietary for recommendations - Time Time Spent with patient: 25-34 minutes Medications reviewed and adjusted accordingly: Yes Anticipated discharge: Acute Rehab
[2017-01-27] MEDS: ENOXAPARIN SODIUM INJ 120 MG/0.8 ML DISP.SYRIN SUBCUT SCH ×2 (09:03→21:43)
--- NOTE | 2017-01-27 09:05 | PDOC PROGRESS REPORT ---
Subjective Progress Note for:: 01/27/17 Subjective:: Intubated and sedated Physical Exam Vital Signs: Temp Pulse Resp BP Pulse Ox 99.0 F 87 24 H 118/67 94 01/27/17 03:53 01/27/17 08:00 01/27/17 06:10 01/27/17 06:10 01/27/17 06:10 Intake & Output 01/26/17 01/27/17 01/28/17 06:59 06:59 06:59 Intake Total 4142 4055 Output Total 2105 2885 400 Balance 2036 1170 -400 Weight 123.6 kg 123.3 kg General appearance: PRESENT: disheveled, obese Head exam: PRESENT: atraumatic, normocephalic Eye exam: PRESENT: conjunctiva pale Mouth exam: PRESENT: moist, neck supple, other - ET tube Neck exam: ABSENT: carotid bruit, JVD, lymphadenopathy, thyromegaly Respiratory exam: PRESENT: decreased breath sounds, prolonged expiratory phas, rhonchi, unlabored, wheezes Cardiovascular exam: PRESENT: irregular rhythm Pulses: PRESENT: normal radial pulses GI/Abdominal exam: PRESENT: normal bowel sounds, soft. ABSENT: distended, guarding, mass, organolmegaly, rebound, tenderness Rectal exam: PRESENT: deferred Gentrourinary exam: PRESENT: indwelling catheter Extremities exam: PRESENT: +2 edema Skin exam: PRESENT: dry, warm, other - venous stasis dx Results Laboratory Results: 01/27/17 03:51 01/27/17 03:51 01/26/17 01/27/17 01/27/17 12:05 03:51 03:51 WBC 10.9 H RBC 4.52 Hgb 14.7 Hct 42.7 MCV 95 MCH 32.5 MCHC 34.4 RDW 15.3 H Plt Count 175 Carbonic Acid 1.32 HCO3/H2CO3 Ratio 20:1 ABG pH 7.41 ABG pCO2 43.7 ABG pO2 81.7 ABG HCO3 27.0 H ABG O2 Saturation 96.1 ABG Base Excess 1.9 FiO2 65% Sodium 143.1 Potassium 3.6 Chloride 111 H Carbon Dioxide 27 Anion Gap 5 BUN 19 Creatinine 0.73 Est GFR ( Amer) > 60 Est GFR (Non-Af Amer) > 60 Glucose 186 H Calcium 8.2 L Phosphorus 3.1 Magnesium 2.4 H Triglycerides 258 H Urine Color Urine Appearance Urine pH Ur Specific [place] Urine Protein Urine Glucose (UA) Urine Ketones Urine Blood Urine Nitrite Ur Leukocyte Esterase Urine WBC (Auto) Urine RBC (Auto) 01/27/17 01/27/17 06:05 06:25 WBC RBC Hgb Hct MCV MCH MCHC RDW Plt Count Carbonic Acid 1.27 HCO3/H2CO3 Ratio 22:1 ABG pH 7.45 ABG pCO2 42.1 ABG pO2 88.3 ABG HCO3 28.7 H ABG O2 Saturation 97.1 ABG Base Excess 4.3 FiO2 65% Sodium Potassium Chloride Carbon Dioxide Anion Gap BUN Creatinine Est GFR ( Amer) Est GFR (Non-Af Amer) Glucose Calcium Phosphorus Magnesium Triglycerides Urine Color YELLOW Urine Appearance CLEAR Urine pH 5.0 Ur Specific [place] 1.025 Urine Protein NEGATIVE Urine Glucose (UA) NEGATIVE Urine Ketones NEGATIVE Urine Blood NEGATIVE Urine Nitrite NEGATIVE Ur Leukocyte Esterase NEGATIVE Urine WBC (Auto) 1 Urine RBC (Auto) 0 01/24/17 12:30 Nasophary (Mrsa Only) MRSA Surveillance Culture - Final MRSA RECOVERED 01/24/17 12:30 Catheterized Urine Urine Culture - Final NO GROWTH 2 DAYS Impressions: Chest X-Ray 01/27/17 06:00 IMPRESSION: Endotracheal tube. Increasing bibasilar patchy density/ fluid. Assessment & Plan - Diagnosis (1) Acute and chronic respiratory failure with hypoxia Is this a current diagnosis for this admission?: YesPlan: mechanical vent supp O2,bronchodialtor abx (2) GERD (gastroesophageal reflux disease) Qualifiers: Esophagitis presence: esophagitis presence not specified Qualified Code(s): K21.9 - Gastro-esophageal reflux disease without esophagitis Is this a current diagnosis for this admission?: Yes (3) Cellulitis of right leg Is this a current diagnosis for this admission?: Yes (4) Obesity, Class III, BMI 40-49.9 (morbid obesity) Is this a current diagnosis for this admission?: Yes (5) Peripheral vascular disease Is this a current diagnosis for this admission?: Yes (6) Alcohol dependency Qualifiers: Substance use status: unspecified alcohol-induced disorder Qualified Code(s): F10.29 - Alcohol dependence with unspecified alcohol-induced disorder Is this a current diagnosis for this admission?: Yes (7) COPD (chronic obstructive pulmonary disease) Qualifiers: COPD type: unspecified COPD Qualified Code(s): J44.9 - Chronic obstructive pulmonary disease, unspecified Is this a current diagnosis for this admission?: YesPlan: end stage O2 dependent in active smoker (8) RONIT (obstructive sleep apnea) Is this a current diagnosis for this admission?: YesPlan: We will need a sleep study after discharge (9) Tobacco use disorder Is this a current diagnosis for this admission?: YesPlan: transdermal nicotine
[2017-01-27] MEDS: METHYLPREDNISOLONE INJ 40 MG/1 ML SDV IV SCH ×3 (09:07→20:31)
[2017-01-27] MEDS: SPIRONOLACTONE 25 MG TABLET NG SCH (09:08)
[2017-01-27] MEDS: NORMAL SALINE 1000 ML 1,000 ML with THIAMINE HCL 100 MG, MVI, ADULT NO.1 WITH VIT K 10 ... IV PRN ×4 (11:09)
[2017-01-27] MEDS: SILVER SULFADIAZINE 1% CREAM 25 GM TP SCH (11:09)
[2017-01-27] MEDS: MIDAZOLAM HCL 100 ML IV PRN (14:51)
[2017-01-27] MEDS: LEVOFLOXACIN 750 MG/D5W RTU 750 MG/150 ML RTUPB IV SCH (21:42)
[2017-01-27] MEDS: MONTELUKAST SODIUM 10 MG TABLET NG SCH (21:43)
[2017-01-28] MEDS: PIPERACILLIN SODIUM/TAZOBACTAM 4.5 GM in NORMAL SALINE 100 ML IV SCH ×2 (00:06→05:09)
[2017-01-28] MEDS: INSULIN LISPRO 100 UNIT/ML 3 ML VIAL SUBCUT PRN ×4 (00:07→23:27)
[2017-01-28 00:19] LABS: APPEARANCE,URINE CLEAR; BILIRUBIN,URINE NEGATIVE (NEGATIVE); GLUCOSE, URINE NEGATIVE (NEGATIVE); KETONES,URINE NEGATIVE (NEGATIVE); LEUKOCYTE ESTERASE,URINE NEGATIVE (NEGATIVE); NITRITE,URINE NEGATIVE (NEGATIVE); PROTEIN,URINE NEGATIVE (NEGATIVE); URINE SPECIFIC GRAVITY 1.018; UROBILINOGEN,URINE NEGATIVE mg/dL (<2.0)
[2017-01-28] MEDS: PROPOFOL 100 ML IV PRN ×7 (00:22→23:27)
[2017-01-28] MEDS: VANCOMYCIN HCL 1,250 MG in DEXTROSE 5%-WATER 250 ML IV SCH (01:51)
[2017-01-28] MEDS: MIDAZOLAM HCL 100 ML IV PRN ×2 (01:52→14:44)
[2017-01-28] MEDS: DIAZEPAM 5 MG TABLET NG SCH ×3 (02:24→21:19)
[2017-01-28] MEDS: METHYLPREDNISOLONE INJ 40 MG/1 ML SDV IV SCH ×3 (02:24→21:18)
[2017-01-28] MEDS: IPRATROPIUM/ALBUTEROL 0.5-2.5 MG/3 ML AMPUL NEB SCH ×4 (02:38→20:39)
[2017-01-28 05:12] LABS: ANION GAP 9 (5-19); BLOOD UREA NITROGEN 25 mg/dL (7-20); CALCIUM 8.4 mg/dL (8.4-10.2); CARBON DIOXIDE 30 mmol/L (22-30); CHLORIDE 108 mmol/L (98-107); CREATININE RESULT 0.65 mg/dL (0.52-1.25); GLUCOSE 208 mg/dL (75-110); MAGNESIUM 2.4 mg/dL (1.6-2.3); POTASSIUM 3.5 mmol/L (3.6-5.0); SODIUM 147.3 mmol/L (137-145)
[2017-01-28] MEDS: NORMAL SALINE 1000 ML 1,000 ML IV PRN ×2 (06:03→19:21)
[2017-01-28] MEDS ORDERED: POTASSIUM CHLORIDE 20 MEQ/15 ML UDCUP NG ONE (07:35)
[2017-01-28] MEDS: PHOSPHORUS #1 250 MG TABLET NG SCH ×4 (07:57→21:19)
[2017-01-28 08:52] LABS: ARTERIAL BLOOD BASE EXCESS 6.3 mmol/L; ARTERIAL BLOOD O2 SATURATION 98.4 % (94-98)
[2017-01-28] MEDS: ACETYLCYSTEINE 20% SOLN 800 MG/4 ML VIAL.NEB NEB SCH ×2 (09:06→20:39)
--- NOTE | 2017-01-28 09:49 | PDOC PROGRESS REPORT ---
Subjective Progress Note for:: 01/28/17 Subjective:: Patient remains intubated and sedated with no acute events overnight. Unable to obtain review of systems secondary to intubated and sedated status. Physical Exam Vital Signs: Temp Pulse Resp BP Pulse Ox 98.8 F 80 24 H 139/79 H 91 L 01/28/17 08:00 01/28/17 09:09 01/28/17 09:09 01/28/17 06:27 01/28/17 09:09 Intake & Output 01/27/17 01/28/17 01/29/17 06:59 06:59 06:59 Intake Total 4055 3980 Output Total 2885 6282 150 Balance 1170 -2245 -150 Weight 123.3 kg 122.6 kg Exam: General: Intubated and sedated, NAD HEENT: AT/NC, PERRL, oropharynx is moist, pink, no scleral icterus, no conjunctival injection Neck: No JVD, trachea midline Chest: CTAB, diminished bases CV: Regular rate and rhythm, normal S1 and S2, no rub or gallop Abdomen: Protuberant, prominent ventral and umbilical hernias which are easily reducible, caput medusa, soft, nondistended, active bowel sounds Extremities: No cyanosis, clubbing; brawny edema bilateral legs, 2+ dependent edema, hyperkeratosis; lichenification of bilateral feet Results Laboratory Results: 01/27/17 03:51 01/28/17 04:32 01/27/17 01/28/17 01/28/17 23:45 04:32 08:30 Carbonic Acid 1.29 HCO3/H2CO3 Ratio 23:1 ABG pH 7.47 H ABG pCO2 43.0 ABG pO2 113.2 H ABG HCO3 30.7 H ABG O2 Saturation 98.4 H ABG Base Excess 6.3 FiO2 65% Sodium 147.3 H Potassium 3.5 L Chloride 108 H Carbon Dioxide 30 Anion Gap 9 BUN 25 H Creatinine 0.65 Est GFR ( Amer) > 60 Est GFR (Non-Af Amer) > 60 Glucose 208 H Calcium 8.4 Magnesium 2.4 H Urine Color YELLOW Urine Appearance CLEAR Urine pH 5.0 Ur Specific [place] 1.018 Urine Protein NEGATIVE Urine Glucose (UA) NEGATIVE Urine Ketones NEGATIVE Urine Blood NEGATIVE Urine Nitrite NEGATIVE Ur Leukocyte Esterase NEGATIVE Urine WBC (Auto) 2 Urine RBC (Auto) 5 01/24/17 13:50 Tracheal Aspirate Gram Stain - Final 01/24/17 13:50 Tracheal Aspirate Sputum Culture - Final Staphylococcus Aureus Normal [place] Impressions: Chest X-Ray 01/27/17 06:00 IMPRESSION: Endotracheal tube. Increasing bibasilar patchy density/ fluid. Chest/Abdomen CTA 01/27/17 08:00 IMPRESSION: No CT angio evidence of acute pulmonary emboli or thoracic aortic dissection. Consolidation at both posterior lung bases atelectasis versus pneumonia. Endotracheal tube, nasogastric tube in good positioning Assessment & Plan - Diagnosis (1) Acute and chronic respiratory failure with hypoxia Is this a current diagnosis for this admission?: YesPlan: Appreciate pulmonary input for ventilator management (2) Pneumonia Qualifiers: Pneumonia type: due to unspecified organism Laterality: bilateral Lung location: unspecified part of lung Qualified Code(s): J18.9 - Pneumonia, unspecified organism Is this a current diagnosis for this admission?: YesPlan: On vancomycin day #4 and Zosyn day #4. Patient currently with MSSA. Will stop vancomycin and Zosyn and Levaquin and initiate patient on Unasyn. Continue aggressive pulmonary toileting including chest physiotherapy. (3) Lymphedema Is this a current diagnosis for this admission?: YesPlan: Unna Boot to be changed daily with Betadine applied to in between toes and Silvadene over any open areas with Telfa over this prior to wrap. (4) Opiate dependence, continuous Is this a current diagnosis for this admission?: YesPlan: Patient on fentanyl patch and Dilaudid. Will decrease IV Dilaudid. (5) Peripheral vascular disease Is this a current diagnosis for this admission?: Yes (6) Alcohol dependency Qualifiers: Substance use status: unspecified alcohol-induced disorder Qualified Code(s): F10.29 - Alcohol dependence with unspecified alcohol-induced disorder Is this a current diagnosis for this admission?: YesPlan: Scheduled Valium to 5 mg NG every 8. Thiamine and folic acid daily. (7) CAD (coronary artery disease) Qualifiers: Coronary Disease-Associated Artery/Lesion type: [place] artery [place] vs. transplanted heart: [place] heart Associated angina: without angina Qualified Code(s): I25.10 - Atherosclerotic heart disease of [place] coronary artery without angina pectoris Is this a current diagnosis for this admission?: Yes (8) COPD (chronic obstructive pulmonary disease) Qualifiers: COPD type: unspecified COPD Qualified Code(s): J44.9 - Chronic obstructive pulmonary disease, unspecified Is this a current diagnosis for this admission?: YesPlan: Doing well, decrease Solu-Medrol to 40mg IV every 8. Scheduled nebulized treatments. Patient has a home O2 requirement. (9) History of DVT (deep vein thrombosis) Is this a current diagnosis for this admission?: YesPlan: Although patient is on Eliquis as an outpatient, given his alcohol is him and his current presentation it is suspect whether patient is actually taking his medications at home. In light of previous DVT we will obtain an emergent CTA as we are unable to reach anyone who can make medical decisions for this patient. It is in his best interest to ensure that this is not a cause of his ongoing hypoxia. Consent was signed with Dr. guadalupe of pulmonary medicine. CTA did not reveal any pulmonary embolus but did reveal atelectasis. 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 (13) Tobacco use disorder Is this a current diagnosis for this admission?: Yes (14) GERD (gastroesophageal reflux disease) Qualifiers: Esophagitis presence: esophagitis presence not specified Qualified Code(s): K21.9 - Gastro-esophageal reflux disease without esophagitis Is this a current diagnosis for this admission?: Yes (15) Morbid obesity Qualifiers: Obesity type: with alveolar hypoventilation Qualified Code(s): E66.2 - Morbid (severe) obesity with alveolar hypoventilation Is this a current diagnosis for this admission?: Yes - Time Time Spent with patient: 25-34 minutes Medications reviewed and adjusted accordingly: Yes Anticipated discharge: Acute Rehab
[2017-01-28] MEDS ORDERED: HYDROMORPHONE HCL INJ/PF 2 MG/ML AMPULE IV PRN (09:50)
[2017-01-28] MEDS: ENOXAPARIN SODIUM INJ 120 MG/0.8 ML DISP.SYRIN SUBCUT SCH ×2 (10:32→21:19)
[2017-01-28] MEDS: FUROSEMIDE INJ/PF 20 MG/2 ML SDV IV SCH ×2 (10:39→21:18)
[2017-01-28] MEDS: SPIRONOLACTONE 25 MG TABLET NG SCH (10:40)
[2017-01-28] MEDS: LORATADINE 10 MG TABLET NG SCH (10:40)
[2017-01-28] MEDS: NICOTINE 21 MG/24 HR PATCH.TD24 TD SCH (10:41)
[2017-01-28] MEDS: PREGABALIN 100 MG CAPSULE PO SCH ×3 (10:41→17:14)
[2017-01-28] MEDS: NORMAL SALINE 1000 ML 1,000 ML with THIAMINE HCL 100 MG, MVI, ADULT NO.1 WITH VIT K 10 ... IV PRN ×4 (14:54)
[2017-01-28] MEDS: MONTELUKAST SODIUM 10 MG TABLET NG SCH (21:19)
[2017-01-28] MEDS: LEVOFLOXACIN 750 MG/D5W RTU 750 MG/150 ML RTUPB IV SCH (21:19)
[2017-01-29] MEDS: IPRATROPIUM/ALBUTEROL 0.5-2.5 MG/3 ML AMPUL NEB SCH ×4 (02:27→19:28)
[2017-01-29] MEDS: MIDAZOLAM HCL 100 ML IV PRN ×2 (03:03→17:42)
[2017-01-29] MEDS: PROPOFOL 100 ML IV PRN ×5 (03:03→21:17)
[2017-01-29 05:20] LABS: ANION GAP 8 (5-19); BLOOD UREA NITROGEN 28 mg/dL (7-20); CALCIUM 8.7 mg/dL (8.4-10.2); CARBON DIOXIDE 29 mmol/L (22-30); CHLORIDE 110 mmol/L (98-107); CREATININE RESULT 0.61 mg/dL (0.52-1.25); GLUCOSE 194 mg/dL (75-110); MAGNESIUM 2.5 mg/dL (1.6-2.3); POTASSIUM 3.7 mmol/L (3.6-5.0); SODIUM 146.7 mmol/L (137-145)
[2017-01-29] MEDS: METHYLPREDNISOLONE INJ 40 MG/1 ML SDV IV SCH ×3 (05:26→21:19)
[2017-01-29] MEDS: DIAZEPAM 5 MG TABLET NG SCH ×3 (05:26→21:19)
[2017-01-29] MEDS: INSULIN LISPRO 100 UNIT/ML 3 ML VIAL SUBCUT PRN ×2 (06:02→17:58)
[2017-01-29 08:59] LABS: HEMATOCRIT 42.5 % (37.9-51.0); HEMOGLOBIN 14.3 g/dL (13.5-17.0); HGB HCT DIFFERENCE 0.4; MEAN CORPUSCULAR HEMOGLOBIN 32.2 pg (27.0-33.4); MEAN CORPUSCULAR HGB CONC 33.7 g/dL (32.0-36.0); MEAN CORPUSCULAR VOLUME 95 fl (80-97); RED BLOOD COUNT 4.46 10^6/uL (4.35-5.55); RED CELL DISTRIBUTION WIDTH 15.6 % (11.5-14.0); WHITE BLOOD COUNT 11.3 10^3/uL (4.0-10.5)
[2017-01-29 09:06] LABS: BAND NEUTROPHILS % (MANUAL) 2 % (3-5); BASOPHILS % (MANUAL) 0 % (0-2); EOSINOPHILS % (MANUAL) 0 % (0-6); LYMPHOCYTES % (MANUAL) 9 % (13-45); NUCLEATED RED BLOOD CELLS 1 /100 WBC (0); TOTAL CELLS COUNTED 100
[2017-01-29] MEDS: POTASSIUM CHLORIDE 20 MEQ/15 ML UDCUP PO SCH (09:06)
[2017-01-29 09:07] LABS: ANISOCYTOSIS SLIGHT; BURR CELLS 1+; OVALOCYTES SLIGHT; POIKILOCYTOSIS 2+; POLYCHROMASIA SLIGHT; TARGET CELLS SLIGHT
[2017-01-29] MEDS: PREGABALIN 100 MG CAPSULE PO SCH ×3 (09:07→17:42)
[2017-01-29] MEDS: FUROSEMIDE INJ/PF 20 MG/2 ML SDV IV SCH ×2 (09:07→21:18)
[2017-01-29] MEDS: NICOTINE 21 MG/24 HR PATCH.TD24 TD SCH (09:07)
[2017-01-29] MEDS: LORATADINE 10 MG TABLET NG SCH (09:07)
[2017-01-29] MEDS: ENOXAPARIN SODIUM INJ 120 MG/0.8 ML DISP.SYRIN SUBCUT SCH ×2 (09:08→21:17)
[2017-01-29] MEDS: SPIRONOLACTONE 25 MG TABLET NG SCH (09:08)
[2017-01-29] MEDS: ACETYLCYSTEINE 20% SOLN 800 MG/4 ML VIAL.NEB NEB SCH ×2 (09:18→19:29)
[2017-01-29] MEDS ORDERED: SILVER SULFADIAZINE 1% CREAM 50 GM TP SCH (12:00)
[2017-01-29] MEDS: SILVER SULFADIAZINE 1% CREAM 400 GM TP SCH (15:33)
[2017-01-29] MEDS ORDERED: LORAZEPAM INJ 2 MG/1 ML VIAL IV PRN (17:08)
--- NOTE | 2017-01-29 17:16 | PDOC PROGRESS REPORT ---
Subjective Progress Note for:: 01/29/17 Subjective:: Patient remains intubated and sedated with no acute events overnight. Unable to obtain review of systems secondary to intubated and sedated status. Physical Exam Vital Signs: Temp Pulse Resp BP Pulse Ox 98.1 F 75 24 H 135/81 H 95 01/29/17 07:44 01/29/17 02:00 01/29/17 02:00 01/29/17 06:56 01/29/17 07:00 Intake & Output 01/28/17 01/29/17 01/30/17 06:59 06:59 06:59 Intake Total 3980 2701 Output Total 6225 2500 60 Balance -2245 201 -60 Weight 122.6 kg 123.7 kg Exam: General: Intubated and sedated, NAD HEENT: AT/NC, PERRL, oropharynx is moist, pink, no scleral icterus, no conjunctival injection Neck: No JVD, trachea midline Chest: CTAB, diminished bases CV: Regular rate and rhythm, normal S1 and S2, no rub or gallop Abdomen: Protuberant, prominent ventral and umbilical hernias which are easily reducible, caput medusa, soft, nondistended, active bowel sounds Extremities: No cyanosis, clubbing; brawny edema bilateral legs, 2+ dependent edema, hyperkeratosis; lichenification of bilateral feet Results Laboratory Results: 01/27/17 03:51 01/29/17 04:29 01/28/17 01/29/17 08:30 04:29 Carbonic Acid 1.29 HCO3/H2CO3 Ratio 23:1 ABG pH 7.47 H ABG pCO2 43.0 ABG pO2 113.2 H ABG HCO3 30.7 H ABG O2 Saturation 98.4 H ABG Base Excess 6.3 FiO2 65% Sodium 146.7 H Potassium 3.7 Chloride 110 H Carbon Dioxide 29 Anion Gap 8 BUN 28 H Creatinine 0.61 Est GFR ( Amer) > 60 Est GFR (Non-Af Amer) > 60 Glucose 194 H Calcium 8.7 Magnesium 2.5 H Impressions: Chest X-Ray 01/27/17 06:00 IMPRESSION: Endotracheal tube. Increasing bibasilar patchy density/ fluid. Chest/Abdomen CTA 01/27/17 08:00 IMPRESSION: No CT angio evidence of acute pulmonary emboli or thoracic aortic dissection. Consolidation at both posterior lung bases atelectasis versus pneumonia. Endotracheal tube, nasogastric tube in good positioning Assessment & Plan - Diagnosis (1) Acute and chronic respiratory failure with hypoxia Is this a current diagnosis for this admission?: YesPlan: Appreciate pulmonary input for ventilator management Plan is for bronchoscopy tomorrow (2) Pneumonia Qualifiers: Pneumonia type: due to unspecified organism Laterality: bilateral Lung location: unspecified part of lung Qualified Code(s): J18.9 - Pneumonia, unspecified organism Is this a current diagnosis for this admission?: YesPlan: Patient currently with MSSA. Patient currently on Levaquin day #5 for this. Continue aggressive pulmonary toileting including chest physiotherapy. Plan for bronchoscopy in the a.m. (3) Lymphedema Is this a current diagnosis for this admission?: YesPlan: Unna Boot to be changed daily with Betadine applied to in between toes and Silvadene over any open areas with Telfa over this prior to wrap. (4) Opiate dependence, continuous Is this a current diagnosis for this admission?: YesPlan: Patient on fentanyl patch and Dilaudid. Will decrease IV Dilaudid. (5) Peripheral vascular disease Is this a current diagnosis for this admission?: Yes (6) Alcohol dependency Qualifiers: Substance use status: unspecified alcohol-induced disorder Qualified Code(s): F10.29 - Alcohol dependence with unspecified alcohol-induced disorder Is this a current diagnosis for this admission?: YesPlan: Scheduled Valium to 5 mg NG every 12. Thiamine and folic acid daily. (7) CAD (coronary artery disease) Qualifiers: Coronary Disease-Associated Artery/Lesion type: [place] artery [place] vs. transplanted heart: [place] heart Associated angina: without angina Qualified Code(s): I25.10 - Atherosclerotic heart disease of [place] coronary artery without angina pectoris Is this a current diagnosis for this admission?: Yes (8) COPD (chronic obstructive pulmonary disease) Qualifiers: COPD type: unspecified COPD Qualified Code(s): J44.9 - Chronic obstructive pulmonary disease, unspecified Is this a current diagnosis for this admission?: YesPlan: Doing well, continue Solu-Medrol 40mg IV every 8. Scheduled nebulized treatments. Patient has a home O2 requirement. 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 Is this a current diagnosis for this admission?: Yes (13) Tobacco use disorder Is this a current diagnosis for this admission?: Yes (14) GERD (gastroesophageal reflux disease) Qualifiers: Esophagitis presence: esophagitis presence not specified Qualified Code(s): K21.9 - Gastro-esophageal reflux disease without esophagitis Is this a current diagnosis for this admission?: Yes (15) Morbid obesity Qualifiers: Obesity type: with alveolar hypoventilation Qualified Code(s): E66.2 - Morbid (severe) obesity with alveolar hypoventilation Is this a current diagnosis for this admission?: Yes - Time Critical Time spent with patient: 35 or more minutes Medications reviewed and adjusted accordingly: Yes Anticipated discharge: Acute Rehab
[2017-01-29] MEDS: NORMAL SALINE 1000 ML 1,000 ML with THIAMINE HCL 100 MG, MVI, ADULT NO.1 WITH VIT K 10 ... IV PRN ×4 (17:40)
[2017-01-29] MEDS: MONTELUKAST SODIUM 10 MG TABLET NG SCH (21:19)
[2017-01-29] MEDS: LEVOFLOXACIN 750 MG/D5W RTU 750 MG/150 ML RTUPB IV SCH (21:19)
[2017-01-30] MEDS: PROPOFOL 100 ML IV PRN ×7 (00:36→23:32)
[2017-01-30] MEDS: IPRATROPIUM/ALBUTEROL 0.5-2.5 MG/3 ML AMPUL NEB SCH ×4 (02:59→21:05)
[2017-01-30 04:47] LABS: HEMATOCRIT 41.5 % (37.9-51.0); HEMOGLOBIN 14.1 g/dL (13.5-17.0); HGB HCT DIFFERENCE 0.8; MEAN CORPUSCULAR HEMOGLOBIN 32.3 pg (27.0-33.4); MEAN CORPUSCULAR HGB CONC 34.1 g/dL (32.0-36.0); MEAN CORPUSCULAR VOLUME 95 fl (80-97); RED BLOOD COUNT 4.38 10^6/uL (4.35-5.55); RED CELL DISTRIBUTION WIDTH 15.4 % (11.5-14.0); WHITE BLOOD COUNT 11.7 10^3/uL (4.0-10.5)
[2017-01-30 05:18] LABS: ANION GAP 5 (5-19); BLOOD UREA NITROGEN 34 mg/dL (7-20); CALCIUM 9.2 mg/dL (8.4-10.2); CARBON DIOXIDE 30 mmol/L (22-30); CHLORIDE 111 mmol/L (98-107); CREATININE RESULT 0.64 mg/dL (0.52-1.25); GLUCOSE 213 mg/dL (75-110); MAGNESIUM 2.6 mg/dL (1.6-2.3); PHOSPHORUS 3.8 mg/dL (2.5-4.5); POTASSIUM 4.2 mmol/L (3.6-5.0); SODIUM 146.2 mmol/L (137-145); TRIGLYCERIDES 349 mg/dL (<150)
[2017-01-30] MEDS: METHYLPREDNISOLONE INJ 40 MG/1 ML SDV IV SCH (06:00)
[2017-01-30 06:20] LABS: ARTERIAL BLOOD BASE EXCESS 5.1 mmol/L; ARTERIAL BLOOD O2 SATURATION 98.5 % (94-98)
[2017-01-30] MEDS: HYDROMORPHONE HCL INJ/PF 2 MG/ML AMPULE IV PRN ×2 (07:50→13:16)
[2017-01-30] MEDS: MIDAZOLAM HCL 100 ML IV PRN ×2 (07:51→21:20)
[2017-01-30] MEDS: ACETYLCYSTEINE 20% SOLN 800 MG/4 ML VIAL.NEB NEB SCH ×2 (08:19→21:05)
[2017-01-30] MEDS: POTASSIUM CHLORIDE 20 MEQ/15 ML UDCUP PO SCH (09:01)
[2017-01-30] MEDS: DIAZEPAM 5 MG TABLET NG SCH (09:01)
[2017-01-30] MEDS: NICOTINE 21 MG/24 HR PATCH.TD24 TD SCH (09:01)
[2017-01-30] MEDS: LORATADINE 10 MG TABLET NG SCH (09:02)
[2017-01-30] MEDS: SPIRONOLACTONE 25 MG TABLET NG SCH (09:02)
[2017-01-30] MEDS: FUROSEMIDE INJ/PF 20 MG/2 ML SDV IV SCH ×2 (09:02→21:20)
[2017-01-30] MEDS: PREGABALIN 100 MG CAPSULE PO SCH ×3 (09:02→17:34)
--- NOTE | 2017-01-30 09:21 | PDOC PROGRESS REPORT ---
Subjective Progress Note for:: 01/30/17 Subjective:: Patient remains intubated and sedated with no acute events overnight. Unable to obtain review of systems secondary to intubated and sedated status. Physical Exam Vital Signs: Temp Pulse Resp BP Pulse Ox 98.4 F 68 24 H 124/80 96 01/29/17 17:31 01/30/17 07:25 01/30/17 02:00 01/30/17 05:49 01/30/17 06:00 Intake & Output 01/29/17 01/30/17 01/31/17 06:59 06:59 06:59 Intake Total 2701 2619 Output Total 2500 2385 75 Balance 201 234 -75 Weight 123.7 kg 120.4 kg Exam: General: Intubated and sedated, NAD HEENT: AT/NC, PERRL, oropharynx is moist, pink, no scleral icterus, no conjunctival injection Neck: No JVD, trachea midline, overall neck examination limited by body habitus Chest: CTAB, diminished bases CV: Regular rate and rhythm, normal S1 and S2, no rub or gallop Abdomen: Protuberant, prominent incisional ventral and umbilical hernias which are easily reducible, caput medusa, soft, nondistended, active bowel sounds Extremities: No cyanosis, clubbing; brawny edema bilateral legs, 1+ dependent edema, hyperkeratosis; lichenification of bilateral feet Results Laboratory Results: 01/30/17 04:35 01/30/17 04:35 01/30/17 01/30/17 01/30/17 04:35 04:35 06:08 WBC 11.7 H RBC 4.38 Hgb 14.1 Hct 41.5 MCV 95 MCH 32.3 MCHC 34.1 RDW 15.4 H Plt Count 202 Carbonic Acid 1.07 HCO3/H2CO3 Ratio 26:1 ABG pH 7.51 H ABG pCO2 35.7 ABG pO2 111.0 H ABG HCO3 28.0 H ABG O2 Saturation 98.5 H ABG Base Excess 5.1 FiO2 45% Sodium 146.2 H Potassium 4.2 Chloride 111 H Carbon Dioxide 30 Anion Gap 5 BUN 34 H Creatinine 0.64 Est GFR ( Amer) > 60 Est GFR (Non-Af Amer) > 60 Glucose 213 H Calcium 9.2 Phosphorus 3.8 Magnesium 2.6 H Triglycerides 349 H 01/24/17 12:10 Blood Blood Culture - Final NO GROWTH IN 5 DAYS 01/24/17 10:23 Blood Blood Culture - Final NO GROWTH IN 5 DAYS Impressions: Chest/Abdomen CTA 01/27/17 08:00 IMPRESSION: No CT angio evidence of acute pulmonary emboli or thoracic aortic dissection. Consolidation at both posterior lung bases atelectasis versus pneumonia. Endotracheal tube, nasogastric tube in good positioning Chest X-Ray 01/30/17 06:00 IMPRESSION: STABLE APPEARANCE OF THE CHEST. SUPPORT DEVICES UNCHANGED. Assessment & Plan - Diagnosis (1) Acute and chronic respiratory failure with hypoxia Is this a current diagnosis for this admission?: YesPlan: Appreciate pulmonary input for ventilator management Plan is for bronchoscopy possibly today. (2) Pneumonia Qualifiers: Pneumonia type: due to unspecified organism Laterality: bilateral Lung location: unspecified part of lung Qualified Code(s): J18.9 - Pneumonia, unspecified organism Is this a current diagnosis for this admission?: YesPlan: Patient currently with MSSA. Patient currently on Levaquin day #04/22 for this. Continue aggressive pulmonary toileting including chest physiotherapy. Plan for bronchoscopy today for improvement in atelectasis. (3) Lymphedema Is this a current diagnosis for this admission?: YesPlan: Unna Boot to be changed daily with Betadine applied to in between toes and Silvadene over any open areas with Telfa over this prior to wrap. (4) Opiate dependence, continuous Is this a current diagnosis for this admission?: YesPlan: Patient on fentanyl patch and Dilaudid. Patient reports allergy with morphine but is okay with Dilaudid. This has been further decreased. (5) Peripheral vascular disease Is this a current diagnosis for this admission?: Yes (6) Alcohol dependency Qualifiers: Substance use status: unspecified alcohol-induced disorder Qualified Code(s): F10.29 - Alcohol dependence with unspecified alcohol-induced disorder Is this a current diagnosis for this admission?: YesPlan: Patient has been admitted for 6 days now. Will stop scheduled Valium patient has when necessary Ativan. No signs of active withdrawal. Thiamine and folic acid daily. (7) CAD (coronary artery disease) Qualifiers: Coronary Disease-Associated Artery/Lesion type: [place] artery [place] vs. transplanted heart: [place] heart Associated angina: without angina Qualified Code(s): I25.10 - Atherosclerotic heart disease of [place] coronary artery without angina pectoris Is this a current diagnosis for this admission?: Yes (8) COPD (chronic obstructive pulmonary disease) Qualifiers: COPD type: unspecified COPD Qualified Code(s): J44.9 - Chronic obstructive pulmonary disease, unspecified Is this a current diagnosis for this admission?: YesPlan: Doing well, transition patient to prednisone 20 mg NG twice a day. Scheduled nebulized treatments. Patient has a home O2 requirement. 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 (13) Tobacco use disorder Is this a current diagnosis for this admission?: YesPlan: Nicotine patch. (14) GERD (gastroesophageal reflux disease) Qualifiers: Esophagitis presence: esophagitis presence not specified Qualified Code(s): K21.9 - Gastro-esophageal reflux disease without esophagitis Is this a current diagnosis for this admission?: Yes (15) Morbid obesity Qualifiers: Obesity type: with alveolar hypoventilation Qualified Code(s): E66.2 - Morbid (severe) obesity with alveolar hypoventilation Is this a current diagnosis for this admission?: Yes (16) DVT prophylaxis Is this a current diagnosis for this admission?: YesPlan: On full dose Lovenox (17) GI prophylaxis Is this a current diagnosis for this admission?: YesPlan: On Prevacid - Time Time Spent with patient: 25-34 minutes Medications reviewed and adjusted accordingly: Yes Anticipated discharge: Acute Rehab
[2017-01-30] MEDS: ENOXAPARIN SODIUM INJ 120 MG/0.8 ML DISP.SYRIN SUBCUT SCH ×2 (09:36→21:21)
[2017-01-30] MEDS: PREDNISONE 20 MG TABLET NG SCH ×2 (09:38→17:34)
[2017-01-30] MEDS: FOLIC ACID 1 MG TABLET NG SCH (09:39)
[2017-01-30] MEDS: THIAMINE HCL 100 MG TABLET NG SCH (09:39)
[2017-01-30] MEDS ORDERED: LEVOFLOXACIN 750 MG TABLET PO SCH (10:00)
[2017-01-30] MEDS: SILVER SULFADIAZINE 1% CREAM 400 GM TP SCH (11:52)
[2017-01-30] MEDS: INSULIN LISPRO 100 UNIT/ML 3 ML VIAL SUBCUT PRN (18:08)
[2017-01-30] MEDS: MONTELUKAST SODIUM 10 MG TABLET NG SCH (21:20)
[2017-01-31] MEDS: INSULIN LISPRO 100 UNIT/ML 3 ML VIAL SUBCUT PRN (00:30)
[2017-01-31] MEDS: IPRATROPIUM/ALBUTEROL 0.5-2.5 MG/3 ML AMPUL NEB SCH ×4 (01:29→20:31)
[2017-01-31] MEDS: PROPOFOL 100 ML IV PRN ×4 (02:52→20:53)
[2017-01-31 04:13] LABS: ARTERIAL BLOOD BASE EXCESS 4.7 mmol/L; ARTERIAL BLOOD O2 SATURATION 96.7 % (94-98)
[2017-01-31 04:16] LABS: ANION GAP 7 (5-19); BLOOD UREA NITROGEN 38 mg/dL (7-20); CALCIUM 9.3 mg/dL (8.4-10.2); CARBON DIOXIDE 29 mmol/L (22-30); CHLORIDE 111 mmol/L (98-107); GLUCOSE 148 mg/dL (75-110); MAGNESIUM 2.4 mg/dL (1.6-2.3); PHOSPHORUS 3.6 mg/dL (2.5-4.5); POTASSIUM 4.2 mmol/L (3.6-5.0); SODIUM 147.1 mmol/L (137-145)
[2017-01-31 04:21] LABS: APPEARANCE,URINE SLIGHTLY-CLOUDY; BILIRUBIN,URINE NEGATIVE (NEGATIVE); GLUCOSE, URINE NEGATIVE (NEGATIVE); KETONES,URINE NEGATIVE (NEGATIVE); LEUKOCYTE ESTERASE,URINE NEGATIVE (NEGATIVE); NITRITE,URINE NEGATIVE (NEGATIVE); PROTEIN,URINE NEGATIVE (NEGATIVE); URINE SPECIFIC GRAVITY 1.031; UROBILINOGEN,URINE NEGATIVE mg/dL (<2.0)
[2017-01-31] MEDS: NORMAL SALINE 1000 ML 1,000 ML IV PRN (05:28)
[2017-01-31] MEDS: ACETYLCYSTEINE 20% SOLN 800 MG/4 ML VIAL.NEB NEB SCH ×2 (08:40→20:30)
--- NOTE | 2017-01-31 08:43 | PDOC PROGRESS REPORT ---
Subjective Progress Note for:: 01/31/17 Subjective:: Patient has been stable on mechanical ventilation. No issues reported by nursing. FiO2 has been decreased to 40%. I am unable to obtain history or review of systems from patient secondary to sedated/intubated state. Physical Exam Vital Signs: Temp Pulse Resp BP Pulse Ox 99.3 F 86 24 H 113/69 95 01/31/17 08:00 01/31/17 08:00 01/31/17 08:00 01/31/17 08:00 01/31/17 08:00 Intake & Output 01/30/17 01/31/17 02/01/17 06:59 06:59 06:59 Intake Total 2619 1742 Output Total 2383 6250 75 Balance 234 -1808 -75 Weight 120.4 kg 119.8 kg GENERAL: Sedated/intubated HEENT: Conjunctiva clear, nonicteric, moist mucous membranes, no JVD, midline trachea. Endotracheal tube in place RESPIRATORY: Clear to auscultation bilaterally, no wheezes, no rhonchi CARDIAC: Regular rate and rhythm, no murmurs/gallops/rubs ABDOMEN: Soft, nondistended, nontender, positive bowel sounds, no rebound, no guarding EXTREMETIES: Chronic bilateral lower extremity edema NEUROLOGIC: Sedated SKIN: [place] wrap/dressing in place to bilateral lower extremity lymphedema Results Laboratory Results: 01/30/17 04:35 01/31/17 03:50 01/31/17 01/31/17 01/31/17 03:50 04:00 04:00 Carbonic Acid 1.16 HCO3/H2CO3 Ratio 24:1 ABG pH 7.49 H ABG pCO2 38.4 ABG pO2 80.8 ABG HCO3 28.3 H ABG O2 Saturation 96.7 ABG Base Excess 4.7 FiO2 40% Sodium 147.1 H Potassium 4.2 Chloride 111 H Carbon Dioxide 29 Anion Gap 7 BUN 38 H Creatinine 0.60 Est GFR ( Amer) > 60 Est GFR (Non-Af Amer) > 60 Glucose 148 H Calcium 9.3 Phosphorus 3.6 Magnesium 2.4 H Urine Color YELLOW Urine Appearance SLIGHTLY-CLOUDY Urine pH 5.0 Ur Specific [place] 1.031 Urine Protein NEGATIVE Urine Glucose (UA) NEGATIVE Urine Ketones NEGATIVE Urine Blood SMALL H Urine Nitrite NEGATIVE Ur Leukocyte Esterase NEGATIVE Urine WBC (Auto) 1 Urine RBC (Auto) 32 Impressions: Chest/Abdomen CTA 01/27/17 08:00 IMPRESSION: No CT angio evidence of acute pulmonary emboli or thoracic aortic dissection. Consolidation at both posterior lung bases atelectasis versus pneumonia. Endotracheal tube, nasogastric tube in good positioning Chest X-Ray 01/31/17 06:00 IMPRESSION: Endotracheal tube tip 6 to 7 cm above the jose. Nasogastric tube tip and side port in the stomach. Assessment & Plan - Diagnosis (1) Acute and chronic respiratory failure with hypoxia Is this a current diagnosis for this admission?: YesPlan: This is being managed by Dr. Patterson of pulmonary medicine. Hopefully patient is getting close to extubation at this point. (2) Pneumonia Qualifiers: Pneumonia type: due to unspecified organism Laterality: bilateral Lung location: unspecified part of lung Qualified Code(s): J18.9 - Pneumonia, unspecified organism Is this a current diagnosis for this admission?: YesPlan: Sputum growing staph aureus resistant to Levaquin. Discontinue Levaquin and start Septra per NG tube. (3) COPD (chronic obstructive pulmonary disease) Qualifiers: COPD type: unspecified COPD Qualified Code(s): J44.9 - Chronic obstructive pulmonary disease, unspecified Is this a current diagnosis for this admission?: YesPlan: Continue prednisone. Continue bronchodilators. Continue singular. (4) Morbid obesity Qualifiers: Obesity type: with alveolar hypoventilation Qualified Code(s): E66.2 - Morbid (severe) obesity with alveolar hypoventilation Is this a current diagnosis for this admission?: Yes (5) Lymphedema Is this a current diagnosis for this admission?: YesPlan: Continue IV Lasix until able to resume oral Lasix. Discontinue IV fluids. (6) Opiate dependence, continuous Is this a current diagnosis for this admission?: Yes (7) CAD (coronary artery disease) Qualifiers: Coronary Disease-Associated Artery/Lesion type: [place] artery [place] vs. transplanted heart: [place] heart Associated angina: without angina Qualified Code(s): I25.10 - Atherosclerotic heart disease of [place] coronary artery without angina pectoris Is this a current diagnosis for this admission?: Yes (8) History of DVT (deep vein thrombosis) Is this a current diagnosis for this admission?: YesPlan: Continue full dose Lovenox for now. Patient takes Xarelto 20 mg daily as an outpatient. (9) RONIT (obstructive sleep apnea) Is this a current diagnosis for this admission?: Yes (10) Post-splenectomy Is this a current diagnosis for this admission?: Yes (11) Tobacco use disorder Is this a current diagnosis for this admission?: YesPlan: Continue nicotinic patch. (12) DVT prophylaxis Is this a current diagnosis for this admission?: Yes (13) Hypernatremia Is this a current diagnosis for this admission?: YesPlan: Discontinue normal saline. - Time Critical Time spent with patient: 35 or more minutes
[2017-01-31] MEDS: ENOXAPARIN SODIUM INJ 120 MG/0.8 ML DISP.SYRIN SUBCUT SCH ×2 (10:46→22:43)
[2017-01-31] MEDS: LORATADINE 10 MG TABLET NG SCH (10:47)
[2017-01-31] MEDS: PREGABALIN 100 MG CAPSULE PO SCH ×3 (10:47→17:04)
[2017-01-31] MEDS: THIAMINE HCL 100 MG TABLET NG SCH (10:48)
[2017-01-31] MEDS: POTASSIUM CHLORIDE 20 MEQ/15 ML UDCUP PO SCH (10:48)
[2017-01-31] MEDS: FOLIC ACID 1 MG TABLET NG SCH (10:48)
[2017-01-31] MEDS: SPIRONOLACTONE 25 MG TABLET NG SCH (10:48)
[2017-01-31] MEDS: SULFAMETHOXAZOLE/TRIMETHOPRIM 800-160 MG/20 ML UDCUP PO SCH ×2 (10:49→22:48)
[2017-01-31] MEDS: FUROSEMIDE INJ/PF 20 MG/2 ML SDV IV SCH ×2 (10:49→22:46)
[2017-01-31] MEDS: PREDNISONE 20 MG TABLET NG SCH ×2 (10:50→17:04)
[2017-01-31] MEDS: NICOTINE 21 MG/24 HR PATCH.TD24 TD SCH (10:51)
--- NOTE | 2017-01-31 11:57 | PDOC PROGRESS REPORT ---
Subjective Progress Note for:: 01/31/17 Subjective:: Intubated and sedated Physical Exam Vital Signs: Temp Pulse Resp BP Pulse Ox 99.3 F 86 24 H 113/69 95 01/31/17 08:00 01/31/17 08:00 01/31/17 08:00 01/31/17 08:00 01/31/17 08:00 Intake & Output 01/30/17 01/31/17 02/01/17 06:59 06:59 06:59 Intake Total 2619 1742 Output Total 0929 3550 75 Balance 234 -1808 -75 Weight 120.4 kg 119.8 kg General appearance: PRESENT: no acute distress, disheveled, obese Head exam: PRESENT: atraumatic, normocephalic Eye exam: PRESENT: conjunctiva pale Mouth exam: PRESENT: neck supple, tongue midline, other - Endotracheal tube in place Neck exam: ABSENT: carotid bruit, JVD, lymphadenopathy, thyromegaly Respiratory exam: PRESENT: decreased breath sounds, prolonged expiratory phas, rhonchi, symmetrical, unlabored, wheezes Cardiovascular exam: PRESENT: RRR, +S1, +S2 Pulses: PRESENT: normal radial pulses GI/Abdominal exam: PRESENT: normal bowel sounds, soft. ABSENT: distended, guarding, mass, organolmegaly, rebound, tenderness Rectal exam: PRESENT: deferred Gentrourinary exam: PRESENT: indwelling catheter Extremities exam: PRESENT: +1 edema, other - Venous stasis disease cellulitis Skin exam: PRESENT: dry, warm Results Laboratory Results: 01/30/17 04:35 01/31/17 03:50 01/31/17 01/31/17 01/31/17 03:50 04:00 04:00 Carbonic Acid 1.16 HCO3/H2CO3 Ratio 24:1 ABG pH 7.49 H ABG pCO2 38.4 ABG pO2 80.8 ABG HCO3 28.3 H ABG O2 Saturation 96.7 ABG Base Excess 4.7 FiO2 40% Sodium 147.1 H Potassium 4.2 Chloride 111 H Carbon Dioxide 29 Anion Gap 7 BUN 38 H Creatinine 0.60 Est GFR ( Amer) > 60 Est GFR (Non-Af Amer) > 60 Glucose 148 H Calcium 9.3 Phosphorus 3.6 Magnesium 2.4 H Urine Color YELLOW Urine Appearance SLIGHTLY-CLOUDY Urine pH 5.0 Ur Specific [place] 1.031 Urine Protein NEGATIVE Urine Glucose (UA) NEGATIVE Urine Ketones NEGATIVE Urine Blood SMALL H Urine Nitrite NEGATIVE Ur Leukocyte Esterase NEGATIVE Urine WBC (Auto) 1 Urine RBC (Auto) 32 Impressions: Chest/Abdomen CTA 01/27/17 08:00 IMPRESSION: No CT angio evidence of acute pulmonary emboli or thoracic aortic dissection. Consolidation at both posterior lung bases atelectasis versus pneumonia. Endotracheal tube, nasogastric tube in good positioning Chest X-Ray 01/31/17 06:00 IMPRESSION: Endotracheal tube tip 6 to 7 cm above the jose. Nasogastric tube tip and side port in the stomach. Assessment & Plan - Diagnosis (1) Acute and chronic respiratory failure with hypoxia Is this a current diagnosis for this admission?: YesPlan: Improved minute ventilation and FiO2 still elevated (2) GERD (gastroesophageal reflux disease) Qualifiers: Esophagitis presence: esophagitis presence not specified Qualified Code(s): K21.9 - Gastro-esophageal reflux disease without esophagitis Is this a current diagnosis for this admission?: Yes (3) Cellulitis of right leg Is this a current diagnosis for this admission?: YesPlan: Improving (4) Obesity, Class III, BMI 40-49.9 (morbid obesity) Is this a current diagnosis for this admission?: Yes (5) Peripheral vascular disease Is this a current diagnosis for this admission?: Yes (6) Alcohol dependency Qualifiers: Substance use status: unspecified alcohol-induced disorder Qualified Code(s): F10.29 - Alcohol dependence with unspecified alcohol-induced disorder Is this a current diagnosis for this admission?: YesPlan: No evidence of DTs at this time (7) COPD (chronic obstructive pulmonary disease) Qualifiers: COPD type: unspecified COPD Qualified Code(s): J44.9 - Chronic obstructive pulmonary disease, unspecified Is this a current diagnosis for this admission?: YesPlan: end stage O2 dependent in active smoker (8) RONIT (obstructive sleep apnea) Is this a current diagnosis for this admission?: YesPlan: We will need a sleep study after discharge (9) Tobacco use disorder Is this a current diagnosis for this admission?: YesPlan: transdermal nicotine - Time Critical Time spent with patient: 35 or more minutes - 40 minutes
--- NOTE | 2017-01-31 11:59 | PDOC PROGRESS REPORT ---
Subjective Progress Note for:: 01/30/17 Subjective:: Intubated and sedated Physical Exam Vital Signs: Temp Pulse Resp BP Pulse Ox 98.4 F 68 24 H 124/80 97 01/29/17 17:31 01/30/17 07:25 01/30/17 02:00 01/30/17 05:49 01/30/17 08:19 Intake & Output 01/29/17 01/30/17 01/31/17 06:59 06:59 06:59 Intake Total 2701 2619 Output Total 0787 2385 75 Balance 201 234 -75 Weight 123.7 kg 120.4 kg General appearance: PRESENT: no acute distress, disheveled, obese Head exam: PRESENT: atraumatic, normocephalic Eye exam: PRESENT: conjunctiva pale Mouth exam: PRESENT: dry mucosa, neck supple, tongue midline, other - Endotracheal tube in place Neck exam: ABSENT: carotid bruit, JVD, lymphadenopathy, thyromegaly Respiratory exam: PRESENT: decreased breath sounds, prolonged expiratory phas, rales, rhonchi, symmetrical, unlabored Cardiovascular exam: PRESENT: RRR, +S1, +S2 Pulses: PRESENT: normal radial pulses GI/Abdominal exam: PRESENT: normal bowel sounds, soft. ABSENT: distended, guarding, mass, organolmegaly, rebound, tenderness Rectal exam: PRESENT: deferred Gentrourinary exam: PRESENT: indwelling catheter Extremities exam: PRESENT: +1 edema, other - Venous stasis disease and cellulitis Skin exam: PRESENT: dry, warm Results Laboratory Results: 01/30/17 04:35 01/30/17 04:35 01/30/17 01/30/17 01/30/17 04:35 04:35 06:08 WBC 11.7 H RBC 4.38 Hgb 14.1 Hct 41.5 MCV 95 MCH 32.3 MCHC 34.1 RDW 15.4 H Plt Count 202 Carbonic Acid 1.07 HCO3/H2CO3 Ratio 26:1 ABG pH 7.51 H ABG pCO2 35.7 ABG pO2 111.0 H ABG HCO3 28.0 H ABG O2 Saturation 98.5 H ABG Base Excess 5.1 FiO2 45% Sodium 146.2 H Potassium 4.2 Chloride 111 H Carbon Dioxide 30 Anion Gap 5 BUN 34 H Creatinine 0.64 Est GFR ( Amer) > 60 Est GFR (Non-Af Amer) > 60 Glucose 213 H Calcium 9.2 Phosphorus 3.8 Magnesium 2.6 H Triglycerides 349 H 01/24/17 12:10 Blood Blood Culture - Final NO GROWTH IN 5 DAYS 01/24/17 10:23 Blood Blood Culture - Final NO GROWTH IN 5 DAYS Impressions: Chest/Abdomen CTA 01/27/17 08:00 IMPRESSION: No CT angio evidence of acute pulmonary emboli or thoracic aortic dissection. Consolidation at both posterior lung bases atelectasis versus pneumonia. Endotracheal tube, nasogastric tube in good positioning Chest X-Ray 01/30/17 06:00 IMPRESSION: STABLE APPEARANCE OF THE CHEST. SUPPORT DEVICES UNCHANGED. Assessment & Plan - Diagnosis (1) Acute and chronic respiratory failure with hypoxia Is this a current diagnosis for this admission?: YesPlan: Improved minute ventilation and FiO2 still elevated fortunately it is coming down (2) GERD (gastroesophageal reflux disease) Qualifiers: Esophagitis presence: esophagitis presence not specified Qualified Code(s): K21.9 - Gastro-esophageal reflux disease without esophagitis Is this a current diagnosis for this admission?: Yes (3) Cellulitis of right leg Is this a current diagnosis for this admission?: Yes (4) Obesity, Class III, BMI 40-49.9 (morbid obesity) Is this a current diagnosis for this admission?: Yes (5) Peripheral vascular disease Is this a current diagnosis for this admission?: Yes (6) Alcohol dependency Qualifiers: Substance use status: unspecified alcohol-induced disorder Qualified Code(s): F10.29 - Alcohol dependence with unspecified alcohol-induced disorder Is this a current diagnosis for this admission?: YesPlan: No evidence of DTs at this time (7) COPD (chronic obstructive pulmonary disease) Qualifiers: COPD type: unspecified COPD Qualified Code(s): J44.9 - Chronic obstructive pulmonary disease, unspecified Is this a current diagnosis for this admission?: YesPlan: end stage O2 dependent in active smoker (8) RONIT (obstructive sleep apnea) Is this a current diagnosis for this admission?: YesPlan: We will need a sleep study after discharge (9) Tobacco use disorder Is this a current diagnosis for this admission?: YesPlan: transdermal nicotine - Time Critical Time spent with patient: 35 or more minutes - 40 minutes
[2017-01-31 13:38] LABS: STREP PNEUMO TYPE 56 2.1 ug/mL (>1.3)
[2017-01-31] MEDS: HYDROMORPHONE HCL INJ/PF 2 MG/ML AMPULE IV PRN ×2 (14:08→17:40)
[2017-01-31] MEDS: SILVER SULFADIAZINE 1% CREAM 400 GM TP SCH (14:08)
[2017-01-31] MEDS: MONTELUKAST SODIUM 10 MG TABLET NG SCH (22:48)
[2017-02-01] MEDS: PROPOFOL 100 ML IV PRN ×5 (01:35→22:34)
[2017-02-01] MEDS: IPRATROPIUM/ALBUTEROL 0.5-2.5 MG/3 ML AMPUL NEB SCH ×4 (02:38→20:13)
[2017-02-01] MEDS: HYDROMORPHONE HCL INJ/PF 2 MG/ML AMPULE IV PRN (03:10)
[2017-02-01 03:55] LABS: HEMATOCRIT 43.2 % (37.9-51.0); HGB HCT DIFFERENCE 1.8; MEAN CORPUSCULAR HEMOGLOBIN 33.1 pg (27.0-33.4); MEAN CORPUSCULAR HGB CONC 34.7 g/dL (32.0-36.0); MEAN CORPUSCULAR VOLUME 95 fl (80-97); RED BLOOD COUNT 4.53 10^6/uL (4.35-5.55); RED CELL DISTRIBUTION WIDTH 15.7 % (11.5-14.0); WHITE BLOOD COUNT 11.7 10^3/uL (4.0-10.5)
[2017-02-01 04:11] LABS: ANION GAP 10 (5-19); BLOOD UREA NITROGEN 37 mg/dL (7-20); CARBON DIOXIDE 28 mmol/L (22-30); CHLORIDE 110 mmol/L (98-107); CREATININE RESULT 0.69 mg/dL (0.52-1.25); GLUCOSE 157 mg/dL (75-110); POTASSIUM 4.3 mmol/L (3.6-5.0); SODIUM 147.7 mmol/L (137-145)
[2017-02-01] MEDS: ACETYLCYSTEINE 20% SOLN 800 MG/4 ML VIAL.NEB NEB SCH ×2 (08:08→20:13)
--- NOTE | 2017-02-01 08:57 | PDOC PROGRESS REPORT ---
Subjective Progress Note for:: 02/01/17 Subjective:: Patient remains on mechanical ventilation. He has been having pressure support trials daily. I cannot obtain history from patient secondary to sedated/ intubated state. Physical Exam Vital Signs: Temp Pulse Resp BP Pulse Ox 97.7 F 93 24 H 83/62 L 94 02/01/17 05:53 02/01/17 02:38 02/01/17 02:38 02/01/17 05:50 02/01/17 06:00 Intake & Output 01/31/17 02/01/17 02/02/17 06:59 06:59 06:59 Intake Total 1742 1420 Output Total 3550 3035 Balance -1808 -1615 Weight 119.8 kg 116.2 kg GENERAL: Sedated/intubated HEENT: Conjunctiva clear, nonicteric, moist mucous membranes, no JVD, midline trachea. Endotracheal tube in place RESPIRATORY: Clear to auscultation bilaterally, no wheezes, no rhonchi CARDIAC: Regular rate and rhythm, no murmurs/gallops/rubs ABDOMEN: Soft, nondistended, nontender, positive bowel sounds, no rebound, no guarding EXTREMETIES: Chronic bilateral lower extremity edema NEUROLOGIC: Sedated SKIN: Kodak wrap/dressing in place to bilateral lower extremity lymphedema Results Laboratory Results: 02/01/17 03:45 02/01/17 03:45 02/01/17 02/01/17 03:45 03:45 WBC 11.7 H RBC 4.53 Hgb 15.0 Hct 43.2 MCV 95 MCH 33.1 MCHC 34.7 RDW 15.7 H Plt Count 151 Sodium 147.7 H Potassium 4.3 Chloride 110 H Carbon Dioxide 28 Anion Gap 10 BUN 37 H Creatinine 0.69 Est GFR ( Amer) > 60 Est GFR (Non-Af Amer) > 60 Glucose 157 H Calcium 9.0 Impressions: Chest/Abdomen CTA 01/27/17 08:00 IMPRESSION: No CT angio evidence of acute pulmonary emboli or thoracic aortic dissection. Consolidation at both posterior lung bases atelectasis versus pneumonia. Endotracheal tube, nasogastric tube in good positioning Chest X-Ray 01/31/17 06:00 IMPRESSION: Endotracheal tube tip 6 to 7 cm above the jose. Nasogastric tube tip and side port in the stomach. Assessment & Plan - Diagnosis (1) Acute and chronic respiratory failure with hypoxia Is this a current diagnosis for this admission?: YesPlan: This is being managed by Dr. Patterson of pulmonary medicine. Hopefully patient is getting close to extubation at this point. (2) Pneumonia Qualifiers: Pneumonia type: due to unspecified organism Laterality: bilateral Lung location: unspecified part of lung Qualified Code(s): J18.9 - Pneumonia, unspecified organism Is this a current diagnosis for this admission?: YesPlan: Sputum growing staph aureus resistant to Levaquin. Continue Septra until 2016. (3) COPD (chronic obstructive pulmonary disease) Qualifiers: COPD type: unspecified COPD Qualified Code(s): J44.9 - Chronic obstructive pulmonary disease, unspecified Is this a current diagnosis for this admission?: YesPlan: Continue prednisone. Continue bronchodilators. Continue singular. (4) Morbid obesity Qualifiers: Obesity type: with alveolar hypoventilation Qualified Code(s): E66.2 - Morbid (severe) obesity with alveolar hypoventilation Is this a current diagnosis for this admission?: Yes (5) Lymphedema Is this a current diagnosis for this admission?: YesPlan: Decrease IV Lasix to 20 mg daily. (6) Opiate dependence, continuous Is this a current diagnosis for this admission?: Yes (7) CAD (coronary artery disease) Qualifiers: Coronary Disease-Associated Artery/Lesion type: [place] artery [place] vs. transplanted heart: [place] heart Associated angina: without angina Qualified Code(s): I25.10 - Atherosclerotic heart disease of [place] coronary artery without angina pectoris Is this a current diagnosis for this admission?: Yes (8) History of DVT (deep vein thrombosis) Is this a current diagnosis for this admission?: YesPlan: Continue full dose Lovenox for now. Patient takes Xarelto 20 mg daily as an outpatient. 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 (12) Hypernatremia Is this a current diagnosis for this admission?: YesPlan: Decrease IV Lasix. Start low rate of IV 1/2 NS. (13) DVT prophylaxis Is this a current diagnosis for this admission?: YesPlan: On full dose Lovenox (14) Hypotension Is this a current diagnosis for this admission?: YesPlan: Decrease IV Lasix. Discontinue spironolactone. Gentle IV fluids. - Time Critical Time spent with patient: 35 or more minutes
[2017-02-01] MEDS: SULFAMETHOXAZOLE/TRIMETHOPRIM 800-160 MG/20 ML UDCUP PO SCH ×2 (10:31→22:34)
[2017-02-01] MEDS: POTASSIUM CHLORIDE 20 MEQ/15 ML UDCUP PO SCH (10:31)
[2017-02-01] MEDS: LORATADINE 10 MG TABLET NG SCH (10:31)
[2017-02-01] MEDS: THIAMINE HCL 100 MG TABLET NG SCH (10:32)
[2017-02-01] MEDS: FUROSEMIDE INJ/PF 20 MG/2 ML SDV IV SCH (10:32)
[2017-02-01] MEDS: PREGABALIN 100 MG CAPSULE PO SCH ×3 (10:32→17:48)
[2017-02-01] MEDS: FOLIC ACID 1 MG TABLET NG SCH (10:32)
[2017-02-01] MEDS: PREDNISONE 20 MG TABLET NG SCH ×2 (10:32→17:48)
[2017-02-01] MEDS: ENOXAPARIN SODIUM INJ 120 MG/0.8 ML DISP.SYRIN SUBCUT SCH ×2 (10:32→22:33)
[2017-02-01] MEDS: NICOTINE 21 MG/24 HR PATCH.TD24 TD SCH (10:32)
[2017-02-01] MEDS: SILVER SULFADIAZINE 1% CREAM 400 GM TP SCH ×2 (13:03→22:34)
--- NOTE | 2017-02-01 14:45 | PDOC PROGRESS REPORT ---
Subjective Progress Note for:: 02/01/17 Subjective:: Intubated and sedated Physical Exam Vital Signs: Temp Pulse Resp BP Pulse Ox 97.7 F 82 24 H 101/65 93 02/01/17 05:53 02/01/17 08:08 02/01/17 11:50 02/01/17 11:50 02/01/17 12:45 Intake & Output 01/31/17 02/01/17 02/02/17 06:59 06:59 06:59 Intake Total 1742 1420 Output Total 3550 3035 570 Balance -1808 -1615 -570 Weight 119.8 kg 116.2 kg General appearance: PRESENT: no acute distress, disheveled, obese Head exam: PRESENT: atraumatic, normocephalic Eye exam: PRESENT: conjunctiva pink, EOMI Mouth exam: PRESENT: moist, neck supple, tongue midline Neck exam: PRESENT: carotid bruit Respiratory exam: PRESENT: crackles, decreased breath sounds, rales, symmetrical , unlabored Cardiovascular exam: PRESENT: RRR, +S1, +S2 Pulses: PRESENT: normal dorsalis pedis pul GI/Abdominal exam: PRESENT: normal bowel sounds, soft. ABSENT: distended, guarding, mass, organolmegaly, rebound, tenderness Rectal exam: PRESENT: deferred Gentrourinary exam: PRESENT: indwelling catheter Extremities exam: PRESENT: +1 edema Skin exam: PRESENT: dry, warm Results Laboratory Results: 02/01/17 03:45 02/01/17 03:45 02/01/17 02/01/17 03:45 03:45 WBC 11.7 H RBC 4.53 Hgb 15.0 Hct 43.2 MCV 95 MCH 33.1 MCHC 34.7 RDW 15.7 H Plt Count 151 Sodium 147.7 H Potassium 4.3 Chloride 110 H Carbon Dioxide 28 Anion Gap 10 BUN 37 H Creatinine 0.69 Est GFR ( Amer) > 60 Est GFR (Non-Af Amer) > 60 Glucose 157 H Calcium 9.0 Impressions: Chest/Abdomen CTA 01/27/17 08:00 IMPRESSION: No CT angio evidence of acute pulmonary emboli or thoracic aortic dissection. Consolidation at both posterior lung bases atelectasis versus pneumonia. Endotracheal tube, nasogastric tube in good positioning Chest X-Ray 01/31/17 06:00 IMPRESSION: Endotracheal tube tip 6 to 7 cm above the jose. Nasogastric tube tip and side port in the stomach. Head CT 02/01/17 00:00 IMPRESSION: No acute intracranial findings.Scattered sinus disease and small right mastoid effusion. Assessment & Plan - Diagnosis (1) Acute and chronic respiratory failure with hypoxia Is this a current diagnosis for this admission?: YesPlan: Improved minute ventilation and FiO2 still elevated (2) GERD (gastroesophageal reflux disease) Qualifiers: Esophagitis presence: esophagitis presence not specified Qualified Code(s): K21.9 - Gastro-esophageal reflux disease without esophagitis Is this a current diagnosis for this admission?: Yes (3) Cellulitis of right leg Is this a current diagnosis for this admission?: YesPlan: Improving (4) Obesity, Class III, BMI 40-49.9 (morbid obesity) Is this a current diagnosis for this admission?: Yes (5) Peripheral vascular disease Is this a current diagnosis for this admission?: Yes (6) Alcohol dependency Qualifiers: Substance use status: unspecified alcohol-induced disorder Qualified Code(s): F10.29 - Alcohol dependence with unspecified alcohol-induced disorder Is this a current diagnosis for this admission?: Yes (7) COPD (chronic obstructive pulmonary disease) Qualifiers: COPD type: unspecified COPD Qualified Code(s): J44.9 - Chronic obstructive pulmonary disease, unspecified Is this a current diagnosis for this admission?: Yes (8) RONIT (obstructive sleep apnea) Is this a current diagnosis for this admission?: Yes (9) Tobacco use disorder Is this a current diagnosis for this admission?: Yes - Time Critical Time spent with patient: 35 or more minutes
[2017-02-01] MEDS: MONTELUKAST SODIUM 10 MG TABLET NG SCH (22:34)
[2017-02-01] MEDS: 1/2 NORMAL SALINE 1,000 ML IV PRN (22:37)
[2017-02-01 23:54] LABS: APPEARANCE,URINE CLOUDY; BILIRUBIN,URINE NEGATIVE (NEGATIVE); GLUCOSE, URINE NEGATIVE (NEGATIVE); KETONES,URINE NEGATIVE (NEGATIVE); LEUKOCYTE ESTERASE,URINE NEGATIVE (NEGATIVE); NITRITE,URINE NEGATIVE (NEGATIVE); PROTEIN,URINE NEGATIVE (NEGATIVE); URINE SPECIFIC GRAVITY 1.024; UROBILINOGEN,URINE NEGATIVE mg/dL (<2.0)
[2017-02-02] MEDS: INSULIN LISPRO 100 UNIT/ML 3 ML VIAL SUBCUT PRN (01:01)
[2017-02-02] MEDS: PROPOFOL 100 ML IV PRN ×3 (01:27→07:17)
[2017-02-02] MEDS: IPRATROPIUM/ALBUTEROL 0.5-2.5 MG/3 ML AMPUL NEB SCH ×2 (02:18→08:20)
[2017-02-02 04:46] LABS: HEMATOCRIT 41.5 % (37.9-51.0); HEMOGLOBIN 13.9 g/dL (13.5-17.0); HGB HCT DIFFERENCE 0.2; MEAN CORPUSCULAR HEMOGLOBIN 31.9 pg (27.0-33.4); MEAN CORPUSCULAR HGB CONC 33.6 g/dL (32.0-36.0); MEAN CORPUSCULAR VOLUME 95 fl (80-97); RED BLOOD COUNT 4.37 10^6/uL (4.35-5.55); RED CELL DISTRIBUTION WIDTH 15.3 % (11.5-14.0); WHITE BLOOD COUNT 12.7 10^3/uL (4.0-10.5)
[2017-02-02 04:53] LABS: ANION GAP 11 (5-19); BLOOD UREA NITROGEN 31 mg/dL (7-20); CALCIUM 9.5 mg/dL (8.4-10.2); CARBON DIOXIDE 25 mmol/L (22-30); CHLORIDE 110 mmol/L (98-107); CREATININE RESULT 0.65 mg/dL (0.52-1.25); GLUCOSE 181 mg/dL (75-110); MAGNESIUM 2.3 mg/dL (1.6-2.3); POTASSIUM 4.6 mmol/L (3.6-5.0); SODIUM 145.9 mmol/L (137-145); TRIGLYCERIDES 391 mg/dL (<150)
[2017-02-02 05:00] LABS: BASOPHILS % (MANUAL) 0 % (0-2); EOSINOPHILS % (MANUAL) 1 % (0-6); LYMPHOCYTES % (MANUAL) 22 % (13-45); TOTAL CELLS COUNTED 100
[2017-02-02 05:02] LABS: ANISOCYTOSIS SLIGHT; TARGET CELLS SLIGHT
[2017-02-02] MEDS: ACETYLCYSTEINE 20% SOLN 800 MG/4 ML VIAL.NEB NEB SCH ×2 (08:21→21:13)
[2017-02-02] MEDS ORDERED: ALBUTEROL SULFATE 0.083% NEB 2.5 MG/3 ML AMPUL NEB PRN (08:30)
--- NOTE | 2017-02-02 08:40 | PDOC PROGRESS REPORT ---
Physical Exam Vital Signs: Temp Pulse Resp BP Pulse Ox 97.7 F 93 23 H 117/74 93 02/02/17 08:00 02/02/17 08:00 02/02/17 08:00 02/02/17 08:00 02/02/17 08:00 Intake & Output 02/01/17 02/02/17 02/03/17 06:59 06:59 06:59 Intake Total 1420 2402 Output Total 3035 2355 60 Balance -1615 47 -60 Weight 116.2 kg 118.2 kg Results Laboratory Results: 02/02/17 03:44 02/02/17 03:44 02/01/17 02/02/17 02/02/17 23:25 03:44 03:44 WBC 12.7 H RBC 4.37 Hgb 13.9 Hct 41.5 MCV 95 MCH 31.9 MCHC 33.6 RDW 15.3 H Plt Count 180 Seg Neutrophils % Not Reportable Lymphocytes % Not Reportable Monocytes % Not Reportable Eosinophils % Not Reportable Basophils % Not Reportable Absolute Neutrophils Not Reportable Absolute Lymphocytes Not Reportable Absolute Monocytes Not Reportable Absolute Eosinophils Not Reportable Absolute Basophils Not Reportable Sodium 145.9 H Potassium 4.6 Chloride 110 H Carbon Dioxide 25 Anion Gap 11 BUN 31 H Creatinine 0.65 Est GFR ( Amer) > 60 Est GFR (Non-Af Amer) > 60 Glucose 181 H Calcium 9.5 Magnesium 2.3 Triglycerides 391 H Urine Color YELLOW Urine Appearance CLOUDY Urine pH 6.0 Ur Specific [place] 1.024 Urine Protein NEGATIVE Urine Glucose (UA) NEGATIVE Urine Ketones NEGATIVE Urine Blood MODERATE H Urine Nitrite NEGATIVE Ur Leukocyte Esterase NEGATIVE Urine WBC (Auto) 2 Urine RBC (Auto) 114 Impressions: Chest/Abdomen CTA 01/27/17 08:00 IMPRESSION: No CT angio evidence of acute pulmonary emboli or thoracic aortic dissection. Consolidation at both posterior lung bases atelectasis versus pneumonia. Endotracheal tube, nasogastric tube in good positioning Chest X-Ray 01/31/17 06:00 IMPRESSION: Endotracheal tube tip 6 to 7 cm above the jose. Nasogastric tube tip and side port in the stomach. Head CT 02/01/17 00:00 IMPRESSION: No acute intracranial findings.Scattered sinus disease and small right mastoid effusion. Assessment & Plan - Diagnosis (1) Acute and chronic respiratory failure with hypoxia Is this a current diagnosis for this admission?: YesPlan: This is being managed by Dr. aPtterson of pulmonary medicine. Neurologic status preventing extubation at this point. (2) Encephalopathy Is this a current diagnosis for this admission?: YesPlan: Head CT 02/01/17 00:00 IMPRESSION: No acute intracranial findings.Scattered sinus disease and small right mastoid effusion. Likely multifactorial. Continue to address multiple medical problems. Minimize neuroactive medications. Head CT findings above show no acute process. Check EEG. Check ammonia level, TSH, B-12. Continue thiamine supplementation given history of alcohol abuse. (3) Pneumonia Qualifiers: Pneumonia type: due to unspecified organism Laterality: bilateral Lung location: unspecified part of lung Qualified Code(s): J18.9 - Pneumonia, unspecified organism Is this a current diagnosis for this admission?: YesPlan: Sputum growing staph aureus resistant to Levaquin. Continue Septra until 2016. (4) COPD (chronic obstructive pulmonary disease) Qualifiers: COPD type: unspecified COPD Qualified Code(s): J44.9 - Chronic obstructive pulmonary disease, unspecified Is this a current diagnosis for this admission?: YesPlan: Continue prednisone. Continue bronchodilators. Continue singular. (5) Morbid obesity Qualifiers: Obesity type: with alveolar hypoventilation Qualified Code(s): E66.2 - Morbid (severe) obesity with alveolar hypoventilation Is this a current diagnosis for this admission?: Yes (6) Lymphedema Is this a current diagnosis for this admission?: YesPlan: Decreased IV Lasix to 20 mg daily on 02/01/2017. (7) Opiate dependence, continuous Is this a current diagnosis for this admission?: Yes (8) CAD (coronary artery disease) Qualifiers: Coronary Disease-Associated Artery/Lesion type: [place] artery [place] vs. transplanted heart: [place] heart Associated angina: without angina Qualified Code(s): I25.10 - Atherosclerotic heart disease of [place] coronary artery without angina pectoris Is this a current diagnosis for this admission?: Yes (9) History of DVT (deep vein thrombosis) Is this a current diagnosis for this admission?: YesPlan: Continue full dose Lovenox for now. Patient takes Xarelto 20 mg daily as an outpatient. 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 (13) Hypernatremia Is this a current diagnosis for this admission?: YesPlan: Decreased IV Lasix. Continue IV 1/2 NS. (14) Hypotension Is this a current diagnosis for this admission?: YesPlan: Continue gentle IV fluids. Sedation likely contributing. (15) DVT prophylaxis Is this a current diagnosis for this admission?: Yes - Time Critical Time spent with patient: 35 or more minutes
[2017-02-02] MEDS: THIAMINE HCL 100 MG TABLET NG SCH (09:34)
[2017-02-02] MEDS: FOLIC ACID 1 MG TABLET NG SCH (09:35)
[2017-02-02] MEDS: LORATADINE 10 MG TABLET NG SCH (09:35)
[2017-02-02] MEDS: PREGABALIN 100 MG CAPSULE PO SCH ×3 (09:35→17:40)
[2017-02-02] MEDS: FUROSEMIDE INJ/PF 20 MG/2 ML SDV IV SCH (09:36)
[2017-02-02] MEDS: NICOTINE 14 MG/24 HR PATCH.TD24 TD SCH (09:36)
[2017-02-02] MEDS: POTASSIUM CHLORIDE 20 MEQ/15 ML UDCUP PO SCH (09:37)
[2017-02-02] MEDS: SULFAMETHOXAZOLE/TRIMETHOPRIM 800-160 MG/20 ML UDCUP PO SCH ×2 (09:37→22:03)
[2017-02-02] MEDS: ENOXAPARIN SODIUM INJ 120 MG/0.8 ML DISP.SYRIN SUBCUT SCH ×2 (09:54→22:07)
[2017-02-02] MEDS ORDERED: PREDNISONE 20 MG TABLET NG SCH (10:00)
--- NOTE | 2017-02-02 12:36 | PDOC PROGRESS REPORT ---
Subjective Progress Note for:: 02/02/17 Subjective:: Intubated unresponsive but not sedated Physical Exam Vital Signs: Temp Pulse Resp BP Pulse Ox 97.7 F 93 23 H 117/74 93 02/02/17 08:00 02/02/17 08:00 02/02/17 08:00 02/02/17 08:00 02/02/17 08:00 Intake & Output 02/01/17 02/02/17 02/03/17 06:59 06:59 06:59 Intake Total 1420 2402 Output Total 3035 2355 60 Balance -1615 47 -60 Weight 116.2 kg 118.2 kg General appearance: PRESENT: no acute distress, disheveled, morbidly obese Head exam: PRESENT: atraumatic, normocephalic Eye exam: PRESENT: conjunctiva pale Mouth exam: PRESENT: moist, neck supple, other - Endotracheal tube in place Neck exam: ABSENT: carotid bruit, JVD, lymphadenopathy, thyromegaly Respiratory exam: PRESENT: decreased breath sounds, prolonged expiratory phas, rhonchi, symmetrical, unlabored, wheezes Cardiovascular exam: PRESENT: RRR, +S1, +S2 Pulses: PRESENT: normal radial pulses GI/Abdominal exam: PRESENT: normal bowel sounds, soft. ABSENT: distended, guarding, mass, organolmegaly, rebound, tenderness Rectal exam: PRESENT: deferred Gentrourinary exam: PRESENT: indwelling catheter Musculoskeletal exam: PRESENT: other - Venous stasis disease cellulitis Skin exam: PRESENT: dry, warm Results Laboratory Results: 02/02/17 03:44 02/02/17 03:44 02/01/17 02/02/17 02/02/17 23:25 03:44 03:44 WBC 12.7 H RBC 4.37 Hgb 13.9 Hct 41.5 MCV 95 MCH 31.9 MCHC 33.6 RDW 15.3 H Plt Count 180 Seg Neutrophils % Not Reportable Lymphocytes % Not Reportable Monocytes % Not Reportable Eosinophils % Not Reportable Basophils % Not Reportable Absolute Neutrophils Not Reportable Absolute Lymphocytes Not Reportable Absolute Monocytes Not Reportable Absolute Eosinophils Not Reportable Absolute Basophils Not Reportable Sodium 145.9 H Potassium 4.6 Chloride 110 H Carbon Dioxide 25 Anion Gap 11 BUN 31 H Creatinine 0.65 Est GFR ( Amer) > 60 Est GFR (Non-Af Amer) > 60 Glucose 181 H Calcium 9.5 Magnesium 2.3 Triglycerides 391 H Urine Color YELLOW Urine Appearance CLOUDY Urine pH 6.0 Ur Specific [place] 1.024 Urine Protein NEGATIVE Urine Glucose (UA) NEGATIVE Urine Ketones NEGATIVE Urine Blood MODERATE H Urine Nitrite NEGATIVE Ur Leukocyte Esterase NEGATIVE Urine WBC (Auto) 2 Urine RBC (Auto) 114 Impressions: Chest/Abdomen CTA 01/27/17 08:00 IMPRESSION: No CT angio evidence of acute pulmonary emboli or thoracic aortic dissection. Consolidation at both posterior lung bases atelectasis versus pneumonia. Endotracheal tube, nasogastric tube in good positioning Chest X-Ray 01/31/17 06:00 IMPRESSION: Endotracheal tube tip 6 to 7 cm above the jose. Nasogastric tube tip and side port in the stomach. Head CT 02/01/17 00:00 IMPRESSION: No acute intracranial findings.Scattered sinus disease and small right mastoid effusion. Assessment & Plan - Diagnosis (1) Acute and chronic respiratory failure with hypoxia Is this a current diagnosis for this admission?: YesPlan: Improved minute ventilation and FiO2 decreasing unable to arouse during sedation vacations (2) GERD (gastroesophageal reflux disease) Qualifiers: Esophagitis presence: esophagitis presence not specified Qualified Code(s): K21.9 - Gastro-esophageal reflux disease without esophagitis Is this a current diagnosis for this admission?: Yes (3) Cellulitis of right leg Is this a current diagnosis for this admission?: Yes (4) Obesity, Class III, BMI 40-49.9 (morbid obesity) Is this a current diagnosis for this admission?: Yes (5) Peripheral vascular disease Is this a current diagnosis for this admission?: Yes (6) Alcohol dependency Qualifiers: Substance use status: unspecified alcohol-induced disorder Qualified Code(s): F10.29 - Alcohol dependence with unspecified alcohol-induced disorder Is this a current diagnosis for this admission?: Yes (7) COPD (chronic obstructive pulmonary disease) Qualifiers: COPD type: unspecified COPD Qualified Code(s): J44.9 - Chronic obstructive pulmonary disease, unspecified Is this a current diagnosis for this admission?: YesPlan: end stage O2 dependent in active smoker (8) RONIT (obstructive sleep apnea) Is this a current diagnosis for this admission?: YesPlan: We will need a sleep study after discharge (9) Tobacco use disorder Is this a current diagnosis for this admission?: YesPlan: transdermal nicotine - Time Critical Time spent with patient: 35 or more minutes - 40 minutes
--- NOTE | 2017-02-02 14:13 | EEG PRO FEE REPORT ---
EEG INTERPRETATION PATIENT NAME: ANALY NEVAREZ ROOM#: [id number] ORDER#: [id number] DATE OF STUDY: 02/02/2017 : 1955 REFERRING MD: DAYAMI DAVIS DIAGNOSIS: Encephalopathy REPORT The background activity is slow at mostly 5-6 Hz theta with medium voltage. No clear epileptiform activity is seen or any further focal slowing; some motion artifact is noted. IMPRESSION Slow EEG most compatible with generalized cerebral dysfunction such as from a toxic or other generalized causes of cerebral dysfunction. INTERPRETING PHYSICIAN: DONNA MIR M.D. /: MTEFFT TT: 1405 ID: [id number] /: [id number] TD: 1327 JOB: [id number] cc:Victoria HARRELL M.D. ROBERT HUNTER >
[2017-02-02] MEDS: MONTELUKAST SODIUM 10 MG TABLET NG SCH (22:03)
[2017-02-02] MEDS ORDERED: DEXTROSE 40% GEL 15 GM TUBE NG PRN ×2 (22:28→22:29)
[2017-02-02] MEDS ORDERED: PHARMACY COMMUNICATION ORDER MC NR (22:30)
[2017-02-02] MEDS ORDERED: METRONIDAZOLE 500 MG TABLET NG SCH (22:30)
[2017-02-02] MEDS ORDERED: METRONIDAZOLE 500 MG TABLET NG ONE (22:45)
[2017-02-03 04:57] LABS: HEMATOCRIT 43.3 % (37.9-51.0); HEMOGLOBIN 14.4 g/dL (13.5-17.0); HGB HCT DIFFERENCE -0.1; MEAN CORPUSCULAR HEMOGLOBIN 31.8 pg (27.0-33.4); MEAN CORPUSCULAR HGB CONC 33.2 g/dL (32.0-36.0); MEAN CORPUSCULAR VOLUME 96 fl (80-97); RED BLOOD COUNT 4.52 10^6/uL (4.35-5.55); RED CELL DISTRIBUTION WIDTH 15.7 % (11.5-14.0); WHITE BLOOD COUNT 14.7 10^3/uL (4.0-10.5)
[2017-02-03 05:14] LABS: ANION GAP 10 (5-19); BLOOD UREA NITROGEN 22 mg/dL (7-20); CALCIUM 9.3 mg/dL (8.4-10.2); CARBON DIOXIDE 30 mmol/L (22-30); CHLORIDE 106 mmol/L (98-107); CREATININE RESULT 0.71 mg/dL (0.52-1.25); GLUCOSE 93 mg/dL (75-110); MAGNESIUM 2.1 mg/dL (1.6-2.3); POTASSIUM 4.2 mmol/L (3.6-5.0); SODIUM 145.7 mmol/L (137-145)
[2017-02-03 06:38] LABS: ARTERIAL BLOOD O2 SATURATION 96.1 % (94-98)
[2017-02-03] MEDS ORDERED: VANCOMYCIN HCL INJ 500 MG VIAL NG SCH (09:00)
[2017-02-03] MEDS ORDERED: VANCOMYCIN HCL INJ 500 MG VIAL PO SCH (09:00)
[2017-02-03] MEDS: 1/2 NORMAL SALINE 1,000 ML IV PRN (09:29)
[2017-02-03] MEDS ORDERED: FOLIC ACID 1 MG TABLET PO SCH (09:37)
[2017-02-03] MEDS ORDERED: LORATADINE 10 MG TABLET PO SCH (09:37)
[2017-02-03] MEDS ORDERED: ACETAMINOPHEN 325 MG TABLET PO PRN (09:37)
[2017-02-03] MEDS ORDERED: DEXTROSE 40% GEL 15 GM TUBE PO PRN ×2 (09:37)
[2017-02-03] MEDS ORDERED: METRONIDAZOLE 500 MG TABLET PO SCH (09:37)
[2017-02-03] MEDS ORDERED: FUROSEMIDE 40 MG TABLET PO SCH (10:00)
[2017-02-03] MEDS ORDERED: POTASSIUM CHLORIDE 20 MEQ/15 ML UDCUP NG SCH (10:00)
[2017-02-03] MEDS ORDERED: PREGABALIN 100 MG CAPSULE NG SCH (10:00)
[2017-02-03] MEDS ORDERED: FUROSEMIDE 40 MG TABLET NG SCH (10:00)
[2017-02-03] MEDS ORDERED: SULFAMETHOXAZOLE/TRIMETHOPRIM 800-160 MG/20 ML UDCUP NG SCH (10:00)
[2017-02-03] MEDS ORDERED: PREDNISONE 20 MG TABLET PO SCH (10:00)
[2017-02-03] MEDS: ENOXAPARIN SODIUM INJ 120 MG/0.8 ML DISP.SYRIN SUBCUT SCH ×2 (10:32→22:09)
[2017-02-03] MEDS: POTASSIUM CHLORIDE 20 MEQ/15 ML UDCUP PO SCH (10:37)
[2017-02-03] MEDS: NICOTINE 14 MG/24 HR PATCH.TD24 TD SCH (10:37)
[2017-02-03] MEDS: SULFAMETHOXAZOLE/TRIMETHOPRIM 800-160 MG/20 ML UDCUP PO SCH ×2 (10:37→22:11)
[2017-02-03] MEDS: PREGABALIN 100 MG CAPSULE PO SCH ×3 (10:38→18:35)
[2017-02-03] MEDS: THIAMINE HCL 100 MG TABLET PO SCH (11:05)
[2017-02-03] MEDS: INSULIN LISPRO 100 UNIT/ML 3 ML VIAL SUBCUT SCH ×3 (11:06→22:24)
[2017-02-03] MEDS: SILVER SULFADIAZINE 1% CREAM 400 GM TP SCH (11:06)
[2017-02-03] MEDS ORDERED: MAG HYDROX/AL HYDROX/SIMETH SUSP 30 ML UDCUP PO PRN (15:25)
[2017-02-03] MEDS ORDERED: ACETAMINOPHEN 325 MG TABLET NG PRN (15:35)
[2017-02-03] MEDS ORDERED: MAG HYDROX/AL HYDROX/SIMETH SUSP 30 ML UDCUP NG PRN (15:37)
[2017-02-03] MEDS: MAG HYDROX/AL HYDROX/SIMETH SUSP 30 ML UDCUP PO PRN (15:45)
[2017-02-03] MEDS: ACETAMINOPHEN 325 MG TABLET PO PRN (15:45)
[2017-02-03] MEDS: VANCOMYCIN HCL INJ 500 MG VIAL PO SCH ×2 (15:45→22:22)
[2017-02-03] MEDS: PANTOPRAZOLE SODIUM 40 MG VIAL IV SCH (18:30)
[2017-02-03] MEDS: MONTELUKAST SODIUM 10 MG TABLET PO SCH (22:10)
[2017-02-03] MEDS: METRONIDAZOLE 500 MG TABLET PO SCH (22:10)
--- NOTE | 2017-02-03 22:25 | PDOC PROGRESS REPORT ---
Subjective Progress Note for:: 02/03/17 Subjective:: Mental status much improved. Oriented to person, year, not city. Thought process still sluggish. Denies chest pain, dyspnea, abdominal pain. Continued watery stools. Physical Exam Vital Signs: Temp Pulse Resp BP Pulse Ox 99.3 F 90 34 H 119/77 98 02/03/17 12:00 02/03/17 19:10 02/03/17 20:57 02/03/17 12:41 02/03/17 20:57 Intake & Output 02/02/17 02/03/17 02/04/17 06:59 06:59 06:59 Intake Total 2402 2202 454 Output Total 3550 7220 2120 Balance 11 -6407 -7317 Weight 118.2 kg 115.1 kg GENERAL: Alert, no acute distress, sluggish HEENT: Conjunctiva clear, nonicteric, moist mucous membranes, no JVD, midline trachea. Endotracheal tube in place RESPIRATORY: Clear to auscultation bilaterally, no wheezes, no rhonchi CARDIAC: Regular rate and rhythm, no murmurs/gallops/rubs ABDOMEN: Soft, nondistended, nontender, positive bowel sounds, no rebound, no guarding EXTREMETIES: trace bilateral lower extremity edema NEUROLOGIC: alert, Ox2, significant generalized weakness in all 4 extremities SKIN: chronic venous stasis skin changes on BLE, no wounds Results Laboratory Results: 02/03/17 04:07 02/03/17 04:07 02/03/17 02/03/17 02/03/17 04:07 04:07 06:25 WBC 14.7 H RBC 4.52 Hgb 14.4 Hct 43.3 MCV 96 MCH 31.8 MCHC 33.2 RDW 15.7 H Plt Count 203 Carbonic Acid 1.21 HCO3/H2CO3 Ratio 22:1 ABG pH 7.45 ABG pCO2 40.2 ABG pO2 78.3 L ABG HCO3 27.2 H ABG O2 Saturation 96.1 ABG Base Excess 3.0 FiO2 40% Sodium 145.7 H Potassium 4.2 Chloride 106 Carbon Dioxide 30 Anion Gap 10 BUN 22 H Creatinine 0.71 Est GFR ( Amer) > 60 Est GFR (Non-Af Amer) > 60 Glucose 93 Calcium 9.3 Magnesium 2.1 Impressions: Chest/Abdomen CTA 01/27/17 08:00 IMPRESSION: No CT angio evidence of acute pulmonary emboli or thoracic aortic dissection. Consolidation at both posterior lung bases atelectasis versus pneumonia. Endotracheal tube, nasogastric tube in good positioning Head CT 02/01/17 00:00 IMPRESSION: No acute intracranial findings.Scattered sinus disease and small right mastoid effusion. KUB X-Ray 02/02/17 22:24 IMPRESSION: NG tube with the tip in the region of the gastric body. Chest X-Ray 02/03/17 06:00 IMPRESSION: High position of NG tube. Assessment & Plan - Diagnosis (1) Acute and chronic respiratory failure with hypoxia Is this a current diagnosis for this admission?: YesPlan: Stable s/p extubation on 02/02/17. (2) Encephalopathy Is this a current diagnosis for this admission?: YesPlan: Improving daily. Due to etoh, critical illness. Continue thiamine. Ammonia, B12 , TSH all normal. Head CT with no acute process. EEG with generalized slowing. (3) Critical illness myopathy Is this a current diagnosis for this admission?: YesPlan: PT. Will need rehab. (4) C. difficile diarrhea Is this a current diagnosis for this admission?: YesPlan: PO Flagyl and Vancomycin. (5) Morbid obesity Qualifiers: Obesity type: with alveolar hypoventilation Qualified Code(s): E66.2 - Morbid (severe) obesity with alveolar hypoventilation Is this a current diagnosis for this admission?: Yes (6) Pneumonia Qualifiers: Pneumonia type: due to unspecified organism Laterality: bilateral Lung location: unspecified part of lung Qualified Code(s): J18.9 - Pneumonia, unspecified organism Is this a current diagnosis for this admission?: YesPlan: Sputum growing staph aureus resistant to Levaquin. Continue Septra until 2016. (7) Alcohol dependency Qualifiers: Substance use status: unspecified alcohol-induced disorder Qualified Code(s): F10.29 - Alcohol dependence with unspecified alcohol-induced disorder Is this a current diagnosis for this admission?: Yes (8) COPD (chronic obstructive pulmonary disease) Qualifiers: COPD type: unspecified COPD Qualified Code(s): J44.9 - Chronic obstructive pulmonary disease, unspecified Is this a current diagnosis for this admission?: YesPlan: Continue prednisone > wean off MAGEN due to myopathy. Continue bronchodilators. Continue singular. (9) History of DVT (deep vein thrombosis) Is this a current diagnosis for this admission?: YesPlan: Resume Xarelto 20 mg daily. 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
[2017-02-03] MEDS ORDERED: PREDNISONE 10 MG TABLET PO ONE (22:45)
[2017-02-04] MEDS: MAG HYDROX/AL HYDROX/SIMETH SUSP 30 ML UDCUP PO PRN (00:02)
[2017-02-04] MEDS: VANCOMYCIN HCL INJ 500 MG VIAL PO SCH ×4 (03:01→23:13)
[2017-02-04] MEDS: METRONIDAZOLE 500 MG TABLET PO SCH ×3 (05:57→23:50)
[2017-02-04] MEDS: PANTOPRAZOLE SODIUM 40 MG VIAL IV SCH ×2 (05:57→17:24)
[2017-02-04 06:34] LABS: HEMATOCRIT 40.8 % (37.9-51.0); HEMOGLOBIN 13.8 g/dL (13.5-17.0); HGB HCT DIFFERENCE 0.6; MEAN CORPUSCULAR HEMOGLOBIN 31.9 pg (27.0-33.4); MEAN CORPUSCULAR HGB CONC 33.9 g/dL (32.0-36.0); MEAN CORPUSCULAR VOLUME 94 fl (80-97); RED BLOOD COUNT 4.33 10^6/uL (4.35-5.55); RED CELL DISTRIBUTION WIDTH 15.8 % (11.5-14.0); WHITE BLOOD COUNT 11.3 10^3/uL (4.0-10.5)
[2017-02-04 07:00] LABS: ALANINE AMINOTRANSFERASE 120 U/L (21-72); ALBUMIN 3.1 g/dL (3.5-5.0); ALKALINE PHOSPHATASE 51 U/L (38-126); ANION GAP 11 (5-19); ASPARTATE AMINO TRANSFERASE 72 U/L (17-59); BILIRUBIN,DIRECT 0.5 mg/dL (0.0-0.4); BILIRUBIN,TOTAL 1.3 mg/dL (0.2-1.3); BLOOD UREA NITROGEN 17 mg/dL (7-20); CALCIUM 9.1 mg/dL (8.4-10.2); CARBON DIOXIDE 23 mmol/L (22-30); CHLORIDE 110 mmol/L (98-107); CREATININE RESULT 0.58 mg/dL (0.52-1.25); GLUCOSE 104 mg/dL (75-110); MAGNESIUM 2.1 mg/dL (1.6-2.3); POTASSIUM 3.9 mmol/L (3.6-5.0); SODIUM 143.6 mmol/L (137-145); TOTAL PROTEIN 6.4 g/dL (6.3-8.2)
[2017-02-04 07:17] LABS: BASOPHILS % (MANUAL) 0 % (0-2); EOSINOPHILS % (MANUAL) 4 % (0-6); LYMPHOCYTES % (MANUAL) 22 % (13-45); TOTAL CELLS COUNTED 100
[2017-02-04 07:21] LABS: ACANTHOCYTES SLIGHT; ANISOCYTOSIS 1+; POIKILOCYTOSIS 1+; TARGET CELLS 1+
[2017-02-04 07:24] LABS: APPEARANCE,URINE CLOUDY; BILIRUBIN,URINE NEGATIVE (NEGATIVE); GLUCOSE, URINE NEGATIVE (NEGATIVE); KETONES,URINE 20 mg/dL (NEGATIVE); LEUKOCYTE ESTERASE,URINE NEGATIVE (NEGATIVE); NITRITE,URINE NEGATIVE (NEGATIVE); PROTEIN,URINE 30 mg/dL (NEGATIVE); URINE SPECIFIC GRAVITY 1.018; UROBILINOGEN,URINE NEGATIVE mg/dL (<2.0)
[2017-02-04 09:08] LABS: ARTERIAL BLOOD BASE EXCESS 1.4 mmol/L; ARTERIAL BLOOD O2 SATURATION 93.4 % (94-98)
[2017-02-04] MEDS: ACETAMINOPHEN 325 MG TABLET PO PRN (09:26)
[2017-02-04] MEDS: LORAZEPAM 1 MG TABLET PO PRN (09:27)
[2017-02-04] MEDS: RIVAROXABAN 10 MG TABLET PO SCH (09:27)
[2017-02-04] MEDS: FOLIC ACID 1 MG TABLET PO SCH (09:28)
[2017-02-04] MEDS: PREGABALIN 100 MG CAPSULE PO SCH ×3 (09:28→17:50)
[2017-02-04] MEDS: CYANOCOBALAMIN (VITAMIN B-12) 1,000 MCG TABLET PO SCH (09:28)
[2017-02-04] MEDS: THIAMINE HCL 100 MG TABLET PO SCH (09:29)
[2017-02-04] MEDS: LORATADINE 10 MG TABLET PO SCH (09:29)
[2017-02-04] MEDS: PREDNISONE 10 MG TABLET PO SCH (09:29)
[2017-02-04] MEDS: CHOLECALCIFEROL (D3) 1,000 UNIT TABLET PO SCH (09:29)
[2017-02-04] MEDS: SULFAMETHOXAZOLE/TRIMETHOPRIM 800-160 MG/20 ML UDCUP PO SCH ×2 (09:30→23:49)
[2017-02-04] MEDS: POTASSIUM CHLORIDE 20 MEQ/15 ML UDCUP PO SCH (09:30)
[2017-02-04] MEDS: NICOTINE 14 MG/24 HR PATCH.TD24 TD SCH (09:30)
[2017-02-04] MEDS: FUROSEMIDE 40 MG TABLET PO SCH (09:30)
[2017-02-04] MEDS: INSULIN LISPRO 100 UNIT/ML 3 ML VIAL SUBCUT SCH ×4 (09:31→23:51)
--- NOTE | 2017-02-04 17:16 | PDOC PROGRESS REPORT ---
Subjective Progress Note for:: 02/04/17 Subjective:: Mental status continues to gradually improve. The patient is conversant but somewhat disoriented and forgetful. He admits to generalized pain but specifically denies chest pain or shortness of breath. He continues to have watery stools through his rectal tube. C. difficile toxin was positive on 02/02. Physical Exam Vital Signs: Temp Pulse Resp BP Pulse Ox 97.9 F 99 18 132/75 H 97 02/04/17 11:35 02/04/17 11:35 02/04/17 11:35 02/04/17 11:35 02/04/17 11:35 Intake & Output 02/03/17 02/04/17 02/05/17 06:59 06:59 06:59 Intake Total 2202 464 100 Output Total 3560 3420 600 Balance -0677 -7463 -500 Weight 115.1 kg 117.2 kg General appearance: PRESENT: no acute distress, cooperative, obese - BMI 35.4, well-developed, well-nourished Head exam: PRESENT: atraumatic, normocephalic Eye exam: PRESENT: conjunctiva pink, EOMI, PERRLA. ABSENT: scleral icterus Ear exam: PRESENT: normal external ear exam Mouth exam: PRESENT: moist, tongue midline Neck exam: ABSENT: carotid bruit, JVD, lymphadenopathy, thyromegaly Respiratory exam: PRESENT: clear to auscultation lui. ABSENT: rales, rhonchi, wheezes Cardiovascular exam: PRESENT: RRR. ABSENT: diastolic murmur, rubs, systolic murmur Pulses: PRESENT: normal dorsalis pedis pul Vascular exam: PRESENT: normal capillary refill GI/Abdominal exam: PRESENT: normal bowel sounds, soft. ABSENT: distended, guarding, mass, organolmegaly, rebound, tenderness Rectal exam: PRESENT: deferred, other - Rectal tube in place with brown watery stool. Extremities exam: PRESENT: full ROM. ABSENT: calf tenderness, clubbing, pedal edema Musculoskeletal exam: PRESENT: other - Significant generalized weakness. Neurological exam: PRESENT: alert, awake, oriented to person, oriented to place , oriented to time, oriented to situation, CN II-XII grossly intact. ABSENT: motor sensory deficit Psychiatric exam: PRESENT: other - Distant and somewhat confused. Skin exam: PRESENT: dry, intact, warm. ABSENT: cyanosis, rash Results Laboratory Results: 02/04/17 06:00 02/04/17 06:00 02/04/17 02/04/17 02/04/17 06:00 06:00 06:50 WBC 11.3 H RBC 4.33 L Hgb 13.8 Hct 40.8 MCV 94 MCH 31.9 MCHC 33.9 RDW 15.8 H Plt Count 179 Seg Neutrophils % Not Reportable Lymphocytes % Not Reportable Monocytes % Not Reportable Eosinophils % Not Reportable Basophils % Not Reportable Absolute Neutrophils Not Reportable Absolute Lymphocytes Not Reportable Absolute Monocytes Not Reportable Absolute Eosinophils Not Reportable Absolute Basophils Not Reportable Carbonic Acid HCO3/H2CO3 Ratio ABG pH ABG pCO2 ABG pO2 ABG HCO3 ABG O2 Saturation ABG Base Excess FiO2 Sodium 143.6 Potassium 3.9 Chloride 110 H Carbon Dioxide 23 Anion Gap 11 BUN 17 Creatinine 0.58 Est GFR ( Amer) > 60 Est GFR (Non-Af Amer) > 60 Glucose 104 Calcium 9.1 Magnesium 2.1 Total Bilirubin 1.3 AST 72 H ALT 120 H Alkaline Phosphatase 51 Total Protein 6.4 Albumin 3.1 L Urine Color DARK YELLOW Urine Appearance CLOUDY Urine pH 7.0 Ur Specific [place] 1.018 Urine Protein 30 H Urine Glucose (UA) NEGATIVE Urine Ketones 20 H Urine Blood LARGE H Urine Nitrite NEGATIVE Ur Leukocyte Esterase NEGATIVE Urine WBC (Auto) 30 Urine RBC (Auto) >182 02/04/17 08:45 WBC RBC Hgb Hct MCV MCH MCHC RDW Plt Count Seg Neutrophils % Lymphocytes % Monocytes % Eosinophils % Basophils % Absolute Neutrophils Absolute Lymphocytes Absolute Monocytes Absolute Eosinophils Absolute Basophils Carbonic Acid 1.07 HCO3/H2CO3 Ratio 23:1 ABG pH 7.46 H ABG pCO2 35.6 ABG pO2 63.1 L ABG HCO3 24.8 ABG O2 Saturation 93.4 L ABG Base Excess 1.4 FiO2 5L Sodium Potassium Chloride Carbon Dioxide Anion Gap BUN Creatinine Est GFR ( Amer) Est GFR (Non-Af Amer) Glucose Calcium Magnesium Total Bilirubin AST ALT Alkaline Phosphatase Total Protein Albumin Urine Color Urine Appearance Urine pH Ur Specific [place] Urine Protein Urine Glucose (UA) Urine Ketones Urine Blood Urine Nitrite Ur Leukocyte Esterase Urine WBC (Auto) Urine RBC (Auto) Impressions: Chest/Abdomen CTA 01/27/17 08:00 IMPRESSION: No CT angio evidence of acute pulmonary emboli or thoracic aortic dissection. Consolidation at both posterior lung bases atelectasis versus pneumonia. Endotracheal tube, nasogastric tube in good positioning Head CT 02/01/17 00:00 IMPRESSION: No acute intracranial findings.Scattered sinus disease and small right mastoid effusion. KUB X-Ray 02/02/17 22:24 IMPRESSION: NG tube with the tip in the region of the gastric body. Chest X-Ray 02/03/17 06:00 IMPRESSION: High position of NG tube. Assessment & Plan - Diagnosis (1) Acute and chronic respiratory failure with hypoxia Is this a current diagnosis for this admission?: YesPlan: He is status post extubation on 02/02/2017. He continues to make slow progress. (2) Encephalopathy Is this a current diagnosis for this admission?: YesPlan: This also continues to gradually improve. He has a history of alcoholism and is on thiamine. He has current critical illness neuromyopathy. His ammonia, B12 and TSH were all normal. Head CT showed no acute process. EEG showed only generalized slowing. (3) C. difficile diarrhea Is this a current diagnosis for this admission?: YesPlan: He continues to have watery diarrhea. We'll continue his by mouth vancomycin and Flagyl. (4) Critical illness myopathy Is this a current diagnosis for this admission?: YesPlan: PT/OT. (5) Morbid obesity Qualifiers: Obesity type: with alveolar hypoventilation Qualified Code(s): E66.2 - Morbid (severe) obesity with alveolar hypoventilation Is this a current diagnosis for this admission?: Yes (6) Pneumonia Qualifiers: Pneumonia type: due to methicillin-sensitive Staphylococcus aureus (MSSA) Laterality: bilateral Lung location: unspecified part of lung Qualified Code(s): J15.211 - Pneumonia due to Methicillin susceptible Staphylococcus aureus Is this a current diagnosis for this admission?: YesPlan: Sputum of 01/24/2017 grew a methicillin sensitive staph aureus. He is due to complete his Septra on 02/08/2017. (7) COPD (chronic obstructive pulmonary disease) Qualifiers: COPD type: unspecified COPD Qualified Code(s): J44.9 - Chronic obstructive pulmonary disease, unspecified Is this a current diagnosis for this admission?: YesPlan: Weaning steroid because of the weakness and myopathy. 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
[2017-02-04] MEDS: PSYLLIUM SEED-SF 5.85 GM PACKET PO PRN ×2 (17:26)
[2017-02-04] MEDS: SILVER SULFADIAZINE 1% CREAM 400 GM TP SCH (17:26)
[2017-02-04] MEDS: MONTELUKAST SODIUM 10 MG TABLET PO SCH (23:50)
[2017-02-05] MEDS: VANCOMYCIN HCL INJ 500 MG VIAL PO SCH ×4 (04:41→20:35)
[2017-02-05] MEDS: METRONIDAZOLE 500 MG TABLET PO SCH ×3 (05:20→21:53)
[2017-02-05] MEDS: PANTOPRAZOLE SODIUM 40 MG VIAL IV SCH ×2 (05:20→18:04)
[2017-02-05] MEDS: ACETAMINOPHEN 325 MG TABLET PO PRN ×2 (05:21→20:35)
[2017-02-05] MEDS: FUROSEMIDE 40 MG TABLET PO SCH (10:41)
[2017-02-05] MEDS: PREDNISONE 10 MG TABLET PO SCH (10:41)
[2017-02-05] MEDS: CHOLECALCIFEROL (D3) 1,000 UNIT TABLET PO SCH (10:41)
[2017-02-05] MEDS: RIVAROXABAN 10 MG TABLET PO SCH (10:42)
[2017-02-05] MEDS: FOLIC ACID 1 MG TABLET PO SCH (10:42)
[2017-02-05] MEDS: CYANOCOBALAMIN (VITAMIN B-12) 1,000 MCG TABLET PO SCH (10:42)
[2017-02-05] MEDS: LORATADINE 10 MG TABLET PO SCH (10:42)
[2017-02-05] MEDS: THIAMINE HCL 100 MG TABLET PO SCH (10:42)
[2017-02-05] MEDS: PREGABALIN 100 MG CAPSULE PO SCH ×3 (10:43→18:04)
[2017-02-05] MEDS: SULFAMETHOXAZOLE/TRIMETHOPRIM 800-160 MG/20 ML UDCUP PO SCH ×2 (10:43→21:53)
[2017-02-05] MEDS: POTASSIUM CHLORIDE 20 MEQ/15 ML UDCUP PO SCH (10:43)
[2017-02-05] MEDS: NICOTINE 14 MG/24 HR PATCH.TD24 TD SCH (10:43)
[2017-02-05] MEDS: SILVER SULFADIAZINE 1% CREAM 400 GM TP SCH (10:44)
[2017-02-05] MEDS: PSYLLIUM SEED-SF 5.85 GM PACKET PO PRN ×2 (10:51)
[2017-02-05] MEDS: INSULIN LISPRO 100 UNIT/ML 3 ML VIAL SUBCUT SCH ×4 (10:51→21:53)
[2017-02-05] MEDS: LORAZEPAM 1 MG TABLET PO PRN (10:59)
[2017-02-05] MEDS ORDERED: OXYCODONE HCL IR 5 MG TABLET ONE (15:38)
--- NOTE | 2017-02-05 15:48 | PDOC PROGRESS REPORT ---
Subjective Progress Note for:: 02/05/17 Subjective:: The patient states that he feels better. He wants to go out to smoke a cigarette. He has pain in the rectal area after removing the rectal tube. Physical Exam Vital Signs: Temp Pulse Resp BP Pulse Ox 98.6 F 86 20 117/68 100 02/05/17 11:39 02/05/17 11:39 02/05/17 12:28 02/05/17 11:39 02/05/17 11:39 Intake & Output 02/04/17 02/05/17 02/06/17 06:59 06:59 06:59 Intake Total 464 477 222 Output Total 3420 1999 200 Balance -2965 -7688 22 Weight 117.2 kg 118 kg Additional comments: General appearance: PRESENT: no acute distress, cooperative, obese - BMI 35.4, well-developed, well-nourished Head exam: PRESENT: atraumatic, normocephalic Eye exam: PRESENT: conjunctiva pink, EOMI, PERRLA. ABSENT: scleral icterus Ear exam: PRESENT: normal external ear exam Mouth exam: PRESENT: moist, tongue midline Neck exam: ABSENT: carotid bruit, JVD, lymphadenopathy, thyromegaly Respiratory exam: PRESENT: clear to auscultation lui. ABSENT: rales, rhonchi, wheezes Cardiovascular exam: PRESENT: RRR. ABSENT: diastolic murmur, rubs, systolic murmur Pulses: PRESENT: normal dorsalis pedis pul Vascular exam: PRESENT: normal capillary refill GI/Abdominal exam: PRESENT: normal bowel sounds, soft. ABSENT: distended, guarding, mass, organolmegaly, rebound, tenderness Rectal exam: PRESENT: deferred, other - Rectal tube in place with brown watery stool, to be removed. Extremities exam: PRESENT: full ROM. ABSENT: calf tenderness, clubbing, pedal edema Musculoskeletal exam: PRESENT: other - Significant generalized weakness. Neurological exam: PRESENT: alert, awake, oriented to person, oriented to place , oriented to time, oriented to situation, CN II-XII grossly intact. ABSENT: motor sensory deficit Psychiatric exam: PRESENT: other - Distant and somewhat confused. Skin exam: PRESENT: dry, intact, warm. ABSENT: cyanosis, rash Results Laboratory Results: 02/04/17 06:00 02/04/17 06:00 Impressions: Chest/Abdomen CTA 01/27/17 08:00 IMPRESSION: No CT angio evidence of acute pulmonary emboli or thoracic aortic dissection. Consolidation at both posterior lung bases atelectasis versus pneumonia. Endotracheal tube, nasogastric tube in good positioning Head CT 02/01/17 00:00 IMPRESSION: No acute intracranial findings.Scattered sinus disease and small right mastoid effusion. KUB X-Ray 02/02/17 22:24 IMPRESSION: NG tube with the tip in the region of the gastric body. Chest X-Ray 02/03/17 06:00 IMPRESSION: High position of NG tube. Assessment & Plan - Diagnosis (1) Acute and chronic respiratory failure with hypoxia Is this a current diagnosis for this admission?: YesPlan: He is status post extubation on 02/02/2017. He continues to make steady progress. (2) Encephalopathy Is this a current diagnosis for this admission?: YesPlan: This also continues to gradually improve. He has a history of alcoholism and is on thiamine. He has current critical illness neuromyopathy. His ammonia, B12 and TSH were all normal. Head CT showed no acute process. EEG showed only generalized slowing. (3) C. difficile diarrhea Is this a current diagnosis for this admission?: YesPlan: He continues to have watery diarrhea. He is afebrile and his vital signs are stable. He continues on oral vancomycin and Flagyl. (4) Critical illness myopathy Is this a current diagnosis for this admission?: YesPlan: PT eval/RX. (5) Morbid obesity Qualifiers: Obesity type: with alveolar hypoventilation Qualified Code(s): E66.2 - Morbid (severe) obesity with alveolar hypoventilation Is this a current diagnosis for this admission?: Yes (6) Pneumonia Qualifiers: Pneumonia type: due to methicillin-sensitive Staphylococcus aureus (MSSA) Laterality: bilateral Lung location: unspecified part of lung Qualified Code(s): J15.211 - Pneumonia due to Methicillin susceptible Staphylococcus aureus Is this a current diagnosis for this admission?: YesPlan: Sputum of 01/24/2017 grew methicillin sensitive staph aureus. He will complete Septra on 02/08/2017. (7) COPD (chronic obstructive pulmonary disease) Qualifiers: COPD type: unspecified COPD Qualified Code(s): J44.9 - Chronic obstructive pulmonary disease, unspecified Is this a current diagnosis for this admission?: YesPlan: Weaning steroid because of the weakness and myopathy. Continuing bronchodilators and Singulair. 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
[2017-02-05] MEDS: MONTELUKAST SODIUM 10 MG TABLET PO SCH (21:53)
[2017-02-06] MEDS: VANCOMYCIN HCL INJ 500 MG VIAL PO SCH ×4 (02:17→21:31)
[2017-02-06] MEDS: PANTOPRAZOLE SODIUM 40 MG VIAL IV SCH (05:42)
[2017-02-06] MEDS: METRONIDAZOLE 500 MG TABLET PO SCH ×3 (05:42→21:31)
[2017-02-06 07:20] LABS: HEMATOCRIT 41.9 % (37.9-51.0); HEMOGLOBIN 13.9 g/dL (13.5-17.0); HGB HCT DIFFERENCE -0.2; MEAN CORPUSCULAR HEMOGLOBIN 31.7 pg (27.0-33.4); MEAN CORPUSCULAR HGB CONC 33.2 g/dL (32.0-36.0); MEAN CORPUSCULAR VOLUME 95 fl (80-97); RED BLOOD COUNT 4.39 10^6/uL (4.35-5.55); RED CELL DISTRIBUTION WIDTH 15.3 % (11.5-14.0); WHITE BLOOD COUNT 12.6 10^3/uL (4.0-10.5)
[2017-02-06 07:44] LABS: ANION GAP 10 (5-19); BLOOD UREA NITROGEN 13 mg/dL (7-20); CALCIUM 9.4 mg/dL (8.4-10.2); CARBON DIOXIDE 26 mmol/L (22-30); CHLORIDE 106 mmol/L (98-107); CREATININE RESULT 0.63 mg/dL (0.52-1.25); GLUCOSE 90 mg/dL (75-110); POTASSIUM 3.8 mmol/L (3.6-5.0)
[2017-02-06] MEDS: INSULIN LISPRO 100 UNIT/ML 3 ML VIAL SUBCUT SCH ×4 (08:59→21:39)
[2017-02-06] MEDS: FUROSEMIDE 40 MG TABLET PO SCH (12:05)
[2017-02-06] MEDS: CHOLECALCIFEROL (D3) 1,000 UNIT TABLET PO SCH (12:05)
[2017-02-06] MEDS: NICOTINE 14 MG/24 HR PATCH.TD24 TD SCH (12:05)
[2017-02-06] MEDS: POTASSIUM CHLORIDE 20 MEQ/15 ML UDCUP PO SCH (12:05)
[2017-02-06] MEDS: PREDNISONE 10 MG TABLET PO SCH (12:05)
[2017-02-06] MEDS: RIVAROXABAN 10 MG TABLET PO SCH (12:06)
[2017-02-06] MEDS: CYANOCOBALAMIN (VITAMIN B-12) 1,000 MCG TABLET PO SCH (12:06)
[2017-02-06] MEDS: LORATADINE 10 MG TABLET PO SCH (12:06)
[2017-02-06] MEDS: FOLIC ACID 1 MG TABLET PO SCH (12:06)
[2017-02-06] MEDS: THIAMINE HCL 100 MG TABLET PO SCH (12:06)
[2017-02-06] MEDS: SULFAMETHOXAZOLE/TRIMETHOPRIM 800-160 MG/20 ML UDCUP PO SCH ×2 (12:07→21:31)
[2017-02-06] MEDS: PREGABALIN 100 MG CAPSULE PO SCH ×3 (12:07→18:28)
[2017-02-06] MEDS: SILVER SULFADIAZINE 1% CREAM 400 GM TP SCH (15:00)
--- NOTE | 2017-02-06 15:14 | PDOC PROGRESS REPORT ---
Subjective Progress Note for:: 02/06/17 Subjective:: The patient was admitted with acute on chronic respiratory failure with hypoxia. He required to ventilator management. He was extubated on 2016. He has continued to make steady progress since that time. Yesterday he felt so much better he wanted to go out to smoke a cigarette. He is very weak. He worked with physical therapy today. He was limited more by weakness than by shortness of breath. Physical Exam Vital Signs: Temp Pulse Resp BP Pulse Ox 98.7 F 73 18 117/62 98 02/06/17 11:27 02/06/17 11:27 02/06/17 11:27 02/06/17 11:27 02/06/17 11:27 Intake & Output 02/05/17 02/06/17 02/07/17 06:59 06:59 06:59 Intake Total 477 639 0 Output Total 1999 1600 250 Balance -1523 -961 -250 Weight 118 kg 115 kg Additional comments: General appearance: PRESENT: no acute distress, cooperative, obese - BMI 35.4, well-developed, well-nourished Head exam: PRESENT: atraumatic, normocephalic Eye exam: PRESENT: conjunctiva pink, EOMI, PERRLA. ABSENT: scleral icterus Ear exam: PRESENT: normal external ear exam Mouth exam: PRESENT: moist, tongue midline Neck exam: ABSENT: carotid bruit, JVD, lymphadenopathy, thyromegaly Respiratory exam: PRESENT: coarse breath sounds lui. ABSENT: rales, rhonchi, wheezes Cardiovascular exam: PRESENT: RRR. ABSENT: diastolic murmur, rubs, systolic murmur Pulses: PRESENT: normal dorsalis pedis pul Vascular exam: PRESENT: normal capillary refill GI/Abdominal exam: PRESENT: normal bowel sounds, soft. ABSENT: distended, guarding, mass, organolmegaly, rebound, tenderness Rectal exam: PRESENT: deferred, other - Rectal tube in place with brown watery stool, to be removed. Extremities exam: PRESENT: full ROM. ABSENT: calf tenderness, clubbing, pedal edema Musculoskeletal exam: PRESENT: other - Significant generalized weakness. Neurological exam: PRESENT: alert, awake, oriented to person, oriented to place , oriented to time, oriented to situation, CN II-XII grossly intact. ABSENT: motor sensory deficit Psychiatric exam: PRESENT: other - Distant and somewhat confused. Skin exam: PRESENT: dry, intact, warm. ABSENT: cyanosis, rash Results Laboratory Results: 02/06/17 06:19 02/06/17 06:19 02/06/17 02/06/17 06:19 06:19 WBC 12.6 H RBC 4.39 Hgb 13.9 Hct 41.9 MCV 95 MCH 31.7 MCHC 33.2 RDW 15.3 H Plt Count 190 Sodium 142.0 Potassium 3.8 Chloride 106 Carbon Dioxide 26 Anion Gap 10 BUN 13 Creatinine 0.63 Est GFR ( Amer) > 60 Est GFR (Non-Af Amer) > 60 Glucose 90 Calcium 9.4 Impressions: Chest/Abdomen CTA 01/27/17 08:00 IMPRESSION: No CT angio evidence of acute pulmonary emboli or thoracic aortic dissection. Consolidation at both posterior lung bases atelectasis versus pneumonia. Endotracheal tube, nasogastric tube in good positioning Head CT 02/01/17 00:00 IMPRESSION: No acute intracranial findings.Scattered sinus disease and small right mastoid effusion. KUB X-Ray 02/02/17 22:24 IMPRESSION: NG tube with the tip in the region of the gastric body. Chest X-Ray 02/03/17 06:00 IMPRESSION: High position of NG tube. Assessment & Plan - Diagnosis (1) Acute and chronic respiratory failure with hypoxia Is this a current diagnosis for this admission?: YesPlan: He is status post extubation on 02/02/2017. He continues to make steady progress. (2) Encephalopathy Is this a current diagnosis for this admission?: YesPlan: Encephalopathy has steadily improved and has nearly resolved. He has a history of alcoholism and is on thiamine. Ammonia, B12 and TSH were all normal. Head CT showed no acute process. EEG showed only generalized slowing. (3) C. difficile diarrhea Is this a current diagnosis for this admission?: YesPlan: C. difficile toxin was positive on 02/02/2017. His diarrhea is improving. Rectal tube was removed yesterday morning. He is afebrile and his vital signs are stable. He continues on oral Flagyl and vancomycin. (4) Critical illness myopathy Is this a current diagnosis for this admission?: YesPlan: He is severely weak. He is currently working with physical therapy. He may require more prolonged physical therapy after this hospitalization. (5) Morbid obesity Qualifiers: Obesity type: with alveolar hypoventilation Qualified Code(s): E66.2 - Morbid (severe) obesity with alveolar hypoventilation Is this a current diagnosis for this admission?: Yes (6) Pneumonia Qualifiers: Pneumonia type: due to methicillin-sensitive Staphylococcus aureus (MSSA) Laterality: bilateral Lung location: unspecified part of lung Qualified Code(s): J15.211 - Pneumonia due to Methicillin susceptible Staphylococcus aureus Is this a current diagnosis for this admission?: YesPlan: Sputum of 01/24/2017 grew methicillin sensitive staph aureus. He will complete Septra on 02/08/2017. (7) COPD (chronic obstructive pulmonary disease) Qualifiers: COPD type: unspecified COPD Qualified Code(s): J44.9 - Chronic obstructive pulmonary disease, unspecified Is this a current diagnosis for this admission?: YesPlan: We have been weaning steroid because of the severe weakness and myopathy. I will now discontinue prednisone altogether. Continuing with bronchodilators and Singulair. 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
[2017-02-06] MEDS: FAMOTIDINE 20 MG TABLET PO SCH (21:31)
[2017-02-06] MEDS: MONTELUKAST SODIUM 10 MG TABLET PO SCH (21:32)
[2017-02-06] MEDS: ACETAMINOPHEN 325 MG TABLET PO PRN (22:41)
[2017-02-07] MEDS: VANCOMYCIN HCL INJ 500 MG VIAL PO SCH (03:05)
[2017-02-07 03:36] LABS: APPEARANCE,URINE CLOUDY; BILIRUBIN,URINE NEGATIVE (NEGATIVE); GLUCOSE, URINE NEGATIVE (NEGATIVE); KETONES,URINE NEGATIVE (NEGATIVE); LEUKOCYTE ESTERASE,URINE TRACE (NEGATIVE); NITRITE,URINE NEGATIVE (NEGATIVE); PROTEIN,URINE 100 mg/dL (NEGATIVE); UROBILINOGEN,URINE NEGATIVE mg/dL (<2.0)
[2017-02-07] MEDS: METRONIDAZOLE 500 MG TABLET PO SCH ×3 (05:22→22:24)
[2017-02-07] MEDS: INSULIN LISPRO 100 UNIT/ML 3 ML VIAL SUBCUT SCH ×4 (09:30→22:28)
[2017-02-07] MEDS: FAMOTIDINE 20 MG TABLET PO SCH ×2 (09:54→22:23)
[2017-02-07] MEDS: FUROSEMIDE 40 MG TABLET PO SCH (09:54)
[2017-02-07] MEDS: NICOTINE 14 MG/24 HR PATCH.TD24 TD SCH (09:54)
[2017-02-07] MEDS: CHOLECALCIFEROL (D3) 1,000 UNIT TABLET PO SCH (09:54)
[2017-02-07] MEDS: POTASSIUM CHLORIDE 20 MEQ/15 ML UDCUP PO SCH (09:54)
[2017-02-07] MEDS: FOLIC ACID 1 MG TABLET PO SCH (09:55)
[2017-02-07] MEDS: LORATADINE 10 MG TABLET PO SCH (09:55)
[2017-02-07] MEDS: CYANOCOBALAMIN (VITAMIN B-12) 1,000 MCG TABLET PO SCH (09:55)
[2017-02-07] MEDS: RIVAROXABAN 10 MG TABLET PO SCH (09:55)
[2017-02-07] MEDS: PREGABALIN 100 MG CAPSULE PO SCH ×3 (09:55→18:09)
[2017-02-07] MEDS: THIAMINE HCL 100 MG TABLET PO SCH (09:55)
[2017-02-07] MEDS: SILVER SULFADIAZINE 1% CREAM 400 GM TP SCH (11:54)
[2017-02-07] MEDS: OXYCODONE HCL IR 5 MG TABLET PO PRN ×2 (11:54→19:45)
--- NOTE | 2017-02-07 15:35 | PDOC PROGRESS REPORT ---
Subjective Progress Note for:: 02/07/17 Subjective:: Patient seen on morning rounds. He is presently on BiPAP therapy from the night. BiPAP was removed to a nasal cannula for breakfast. Oxygen saturations are in the high 90s on 2 L. He denies any significant shortness of breath cough or dyspnea. He denies chest pain, palpitations or headache. He states he continues to be physically week. He feels he is improving with physical therapy. He denies any nausea, vomiting or diarrhea. Denies any fever or chills. Physical Exam Vital Signs: Temp Pulse Resp BP Pulse Ox 98.6 F 77 12 114/71 99 02/07/17 07:28 02/07/17 07:28 02/07/17 08:00 02/07/17 07:28 02/07/17 08:00 Intake & Output 02/06/17 02/07/17 02/08/17 06:59 06:59 06:59 Intake Total 639 277 Output Total 1600 1350 Balance -961 -1073 Weight 115 kg 112.7 kg General appearance: PRESENT: no acute distress, obese, well-developed, well- nourished Head exam: PRESENT: atraumatic Eye exam: PRESENT: conjunctiva pink, EOMI, PERRLA. ABSENT: scleral icterus Ear exam: PRESENT: normal external ear exam Mouth exam: PRESENT: moist, tongue midline Neck exam: ABSENT: carotid bruit, JVD, lymphadenopathy, thyromegaly Respiratory exam: PRESENT: clear to auscultation lui. ABSENT: rales, rhonchi, wheezes Cardiovascular exam: PRESENT: RRR. ABSENT: diastolic murmur, rubs, systolic murmur Pulses: PRESENT: normal dorsalis pedis pul Vascular exam: PRESENT: normal capillary refill GI/Abdominal exam: PRESENT: normal bowel sounds, soft. ABSENT: distended, guarding, mass, organolmegaly, rebound, tenderness Rectal exam: PRESENT: deferred Extremities exam: PRESENT: full ROM. ABSENT: calf tenderness, clubbing, pedal edema Neurological exam: PRESENT: alert, awake, oriented to person, oriented to place , oriented to time, oriented to situation, CN II-XII grossly intact. ABSENT: motor sensory deficit Psychiatric exam: PRESENT: appropriate affect, normal mood. ABSENT: homicidal ideation, suicidal ideation Skin exam: PRESENT: dry, intact, warm. ABSENT: cyanosis, rash Results Laboratory Results: 02/06/17 06:19 02/06/17 06:19 02/07/17 03:10 Urine Color BROWN Urine Appearance CLOUDY Urine pH 5.0 Ur Specific [place] 1.030 Urine Protein 100 H Urine Glucose (UA) NEGATIVE Urine Ketones NEGATIVE Urine Blood LARGE H Urine Nitrite NEGATIVE Ur Leukocyte Esterase TRACE H Urine RBC (Auto) >182 Impressions: Chest/Abdomen CTA 01/27/17 08:00 IMPRESSION: No CT angio evidence of acute pulmonary emboli or thoracic aortic dissection. Consolidation at both posterior lung bases atelectasis versus pneumonia. Endotracheal tube, nasogastric tube in good positioning Head CT 02/01/17 00:00 IMPRESSION: No acute intracranial findings.Scattered sinus disease and small right mastoid effusion. KUB X-Ray 02/02/17 22:24 IMPRESSION: NG tube with the tip in the region of the gastric body. Chest X-Ray 02/03/17 06:00 IMPRESSION: High position of NG tube. Assessment & Plan - Diagnosis (1) Acute and chronic respiratory failure with hypoxia Is this a current diagnosis for this admission?: YesPlan: Patient is saturating well now on 2 L/m nasal cannula. (2) C. difficile diarrhea Is this a current diagnosis for this admission?: YesPlan: Patient is receiving Flagyl 500 mg every 8 hours (3) Hypernatremia Is this a current diagnosis for this admission?: YesPlan: Resolved with IV hydration. (4) Hypotension Is this a current diagnosis for this admission?: YesPlan: Resolved with IV hydration and broad-spectrum antibiotics (5) Critical illness myopathy Is this a current diagnosis for this admission?: YesPlan: Improving with physical therapy. Will need short-term rehabilitation. (6) Encephalopathy Is this a current diagnosis for this admission?: YesPlan: Resolved with IV fluids and antibiotic therapy. (7) Pneumonia Qualifiers: Pneumonia type: due to methicillin-sensitive Staphylococcus aureus (MSSA) Laterality: bilateral Lung location: unspecified part of lung Qualified Code(s): J15.211 - Pneumonia due to Methicillin susceptible Staphylococcus aureus Is this a current diagnosis for this admission?: YesPlan: Treated for 2 weeks. Sputum culture showed MRSA (8) Opiate dependence, continuous Is this a current diagnosis for this admission?: YesPlan: Continue pain medicine as ordered by pain clinic. (9) Respiratory distress Is this a current diagnosis for this admission?: YesPlan: Resolved. With treatment of pneumonia and BiPAP therapy when necessary for obstructive sleep apnea. (10) Lymphedema Is this a current diagnosis for this admission?: YesPlan: Bilateral lower extremities. (11) GERD (gastroesophageal reflux disease) Qualifiers: Esophagitis presence: esophagitis presence not specified Qualified Code(s): K21.9 - Gastro-esophageal reflux disease without esophagitis Is this a current diagnosis for this admission?: YesPlan: Continue PPI therapy (12) DVT prophylaxis Is this a current diagnosis for this admission?: YesPlan: Continue teds and Lovenox - Time Time Spent with patient: 25-34 minutes Critical Time spent with patient: 15-24 minutes Smoking Cessation Education: 3 to 10 minutes Medications reviewed and adjusted accordingly: Yes Anticipated discharge: Acute Rehab - Inpatient Certification Based on my medical assessment, after consideration of the patient's comorbidities, presenting symptoms, or acuity I expect that the services needed warrant INPATIENT care.: Yes
[2017-02-07] MEDS ORDERED: GABAPENTIN 300 MG CAPSULE PO ONE (18:00)
[2017-02-07] MEDS: MONTELUKAST SODIUM 10 MG TABLET PO SCH (22:24)
[2017-02-08] MEDS: OXYCODONE HCL IR 5 MG TABLET PO PRN ×3 (01:50→15:09)
[2017-02-08] MEDS: METRONIDAZOLE 500 MG TABLET PO SCH ×2 (05:25→15:09)
[2017-02-08 07:08] LABS: HEMATOCRIT 41.3 % (37.9-51.0); HEMOGLOBIN 14.1 g/dL (13.5-17.0); MEAN CORPUSCULAR HEMOGLOBIN 32.2 pg (27.0-33.4); MEAN CORPUSCULAR HGB CONC 34.2 g/dL (32.0-36.0); MEAN CORPUSCULAR VOLUME 94 fl (80-97); RED BLOOD COUNT 4.38 10^6/uL (4.35-5.55); RED CELL DISTRIBUTION WIDTH 15.4 % (11.5-14.0); WHITE BLOOD COUNT 9.2 10^3/uL (4.0-10.5)
[2017-02-08 07:28] LABS: ALANINE AMINOTRANSFERASE 143 U/L (21-72); ALBUMIN 3.4 g/dL (3.5-5.0); ALKALINE PHOSPHATASE 53 U/L (38-126); ANION GAP 11 (5-19); ASPARTATE AMINO TRANSFERASE 90 U/L (17-59); BILIRUBIN,DIRECT 0.4 mg/dL (0.0-0.4); BILIRUBIN,TOTAL 0.9 mg/dL (0.2-1.3); BLOOD UREA NITROGEN 12 mg/dL (7-20); CALCIUM 9.4 mg/dL (8.4-10.2); CARBON DIOXIDE 27 mmol/L (22-30); CHLORIDE 103 mmol/L (98-107); GLUCOSE 97 mg/dL (75-110); SODIUM 141.4 mmol/L (137-145); TOTAL PROTEIN 6.7 g/dL (6.3-8.2)
[2017-02-08] MEDS: CHOLECALCIFEROL (D3) 1,000 UNIT TABLET PO SCH (09:31)
[2017-02-08] MEDS: PREGABALIN 100 MG CAPSULE PO SCH ×3 (09:32→17:33)
[2017-02-08] MEDS: FOLIC ACID 1 MG TABLET PO SCH (09:32)
[2017-02-08] MEDS: CYANOCOBALAMIN (VITAMIN B-12) 1,000 MCG TABLET PO SCH (09:32)
[2017-02-08] MEDS: THIAMINE HCL 100 MG TABLET PO SCH (09:33)
[2017-02-08] MEDS: FUROSEMIDE 40 MG TABLET PO SCH (09:33)
[2017-02-08] MEDS: FAMOTIDINE 20 MG TABLET PO SCH (09:33)
[2017-02-08] MEDS: LORATADINE 10 MG TABLET PO SCH (09:34)
[2017-02-08] MEDS: RIVAROXABAN 10 MG TABLET PO SCH (09:34)
[2017-02-08] MEDS: POTASSIUM CHLORIDE 20 MEQ/15 ML UDCUP PO SCH (09:39)
[2017-02-08] MEDS: NICOTINE 14 MG/24 HR PATCH.TD24 TD SCH (09:39)
[2017-02-08] MEDS: INSULIN LISPRO 100 UNIT/ML 3 ML VIAL SUBCUT SCH ×3 (09:55→17:34)
--- NOTE | 2017-02-08 10:01 | PDOC TRANSFER SUMMARY ---
General - Admit/Disc Date/PCP Admission Date/Primary Care Provider: 01/24/17 07:33 Discharge Date: 02/08/17 - Discharge Diagnosis (1) Acute and chronic respiratory failure with hypoxia Is this a current diagnosis for this admission?: YesSummary: Improved to baseline. Oxygen at 2l/min via n/c and CPAP at night. Tobacco cessation. Continue inhalers (2) C. difficile diarrhea Is this a current diagnosis for this admission?: YesSummary: Patient needs 5 more days of Flagyl 500 mg q8h (3) Hypernatremia Is this a current diagnosis for this admission?: YesSummary: Resolved (4) Hypotension Is this a current diagnosis for this admission?: YesSummary: Resolved (5) Critical illness myopathy Is this a current diagnosis for this admission?: YesSummary: Continue physical therapy to return to baseline functional capacity (6) Encephalopathy Is this a current diagnosis for this admission?: YesSummary: Resolved (7) Pneumonia Is this a current diagnosis for this admission?: YesSummary: Resolving (8) Opiate dependence, continuous Is this a current diagnosis for this admission?: YesSummary: Chronic pain management (9) Respiratory distress Is this a current diagnosis for this admission?: YesSummary: Resolved (10) Lymphedema Is this a current diagnosis for this admission?: YesSummary: Stable lower extremities. Support hose (11) GERD (gastroesophageal reflux disease) Is this a current diagnosis for this admission?: YesSummary: Continue PPI - Additional Information Resuscitation Status: Full Code Home Medications: Albuterol Sulfate [Proair HFA] 1 puff IH Q4HP PRN 01/24/17 Atorvastatin Calcium [Lipitor 40 mg Tablet] 40 mg PO DAILY 01/24/17 Cholecalciferol (Vitamin D3) [Vitamin D3 5000 unit Capsule] 5,000 unit PO DAILY 01/24/17 Cyanocobalamin (Vitamin B-12) [Vitamin B-12 500 mcg Tablet] 500 mcg PO DAILY Docusate Sodium [Colace 100 mg Capsule] 100 mg PO BID 01/24/17 Folic Acid [Folvite 1 mg Tablet] 1 mg PO DAILY 01/24/17 Furosemide [Lasix] 40 mg PO QAM 01/24/17 Hydroxyzine HCl [Atarax 10 mg Tablet] 10 mg PO Q6HP PRN 01/24/17 Ipratropium/Albuterol Sulfate [Duoneb 3 ml Ampul] 3 ml NEB RTQIDP PRN 01/24/17 Loratadine 10 mg PO DAILY 01/24/17 Melatonin 10 mg PO QHS 01/24/17 Montelukast Sodium [Singulair 10 mg Tablet] 10 mg PO QHS 01/24/17 Multivitamin [Tab-A-Bailey] 1 tab PO DAILY 01/24/17 Omeprazole Magnesium [Prilosec Otc] 40 mg PO DAILY 01/24/17 Pregabalin [Lyrica 100 mg Capsule] 100 mg PO TID 01/24/17 Rivaroxaban [Xarelto] 20 mg PO DAILY 01/24/17 Tiotropium [place] [Spiriva Respimat] 2 puff IH DAILY 01/24/17 Trazodone HCl [Desyrel] 300 mg PO QHS 01/24/17 Vitamin B Complex 1 cap PO DAILY 01/24/17 Acetaminophen [Tylenol 325 mg Tablet] 650 mg PO Q8HP PRN tablet 02/08/17 Albuterol Sulfate [Ventolin 0.083% Neb 2.5 mg/3 mL Ampul] 2.5 mg NEB RTQ6HP PRN vial.neb 02/08/17 Lorazepam [Ativan 1 mg Tablet] 1 mg PO Q6HP PRN #20 tablet 02/08/17 Mag Hydrox/Al Hydrox/Simeth [Maalox Plus Susp 30 Udcup] 30 ml PO Q6HP PRN udc 02/08/17 Metronidazole [Flagyl 500 mg Tablet] 500 mg PO Q8 tablet 02/08/17 Montelukast Sodium [Singulair 10 mg Tablet] 10 mg PO QHS #15 tablet 02/08/17 Oxycodone HCl [Oxy-Ir 5 mg Tablet] 5 mg PO Q6HP PRN #20 tablet 02/08/17 Silver Sulfadiazine [Silvadene 1% Cream 400 gm] 1 applic TP DAILY@NOON jar Thiamine HCl [Thiamine 100 mg Tablet] 100 mg PO DAILY tablet 02/08/17 History of Present Illness Admission Date/PCP: 01/24/17 07:33 Patient complains of: Shortness of breath, fever and dyspnea History of Present Illness: ANALY NEVAREZ is a 61 year old male with chronic bilateral lower leg swelling, asthma, Home O2 dependent COPD, obstructive sleep apnea, with CPAP level of 4, coronary artery disease, status post stent implant 1, history of multiple DVTs and pulmonary emboli, cirrhosis, arthritis, chronic pain, and hyperlipidemia along with chronic tobacco and alcohol dependence, occasionally smoking marijuana, who presents to the emergency room for evaluation of above complaint. Patient has been discussed with emergency room physician who evaluated the patient. Patient is intubated and sedated and is able to provide no history whatsoever in terms of acute or chronic events, review of systems, personal habits, family history, etc. No friends or family are present. Old inpatient records are reviewed. . Onset of worsening of his chronic respiratory difficulty on the , with associated fever of 101.8. Was given Tylenol, DuoNeb treatment, Solu-Medrol, magnesium, and placed on BiPAP. Initial clinical improvement in the emergency room, then patient began exhibiting greater and greater fatigue and eventually required intubation by the emergency room physician. Emergency room physician notes are reviewed. No further information available this point in time. Laboratory results are listed in [facility] and are reviewed. X-ray summary results are listed below, with full report(s) reviewed. . EKG reviewed. Social history/personal habits: Per history and present illness from June 2015 admission, patient is a . No children. At that time, was smoking 1 -2 packs of cigarettes per day. Case of beer every 3-4 days. Smokes marijuana. Takes an occasional "pill" for his chronic pain. Occasional whiskey. On disability. Allergies/adverse reactions are listed in [facility] and are reviewed. Home medications Home medications initially autopopulated into [facility] may not accurately reflect patient's true medications, dosages, and/or frequencies. REVIEW OF SYSTEMS: See history and present illness.No further information available this point in time. PHYSICAL EXAMINATION: 5 feet 11 inches tall. 113.4 kg. BMI 34.9 kg/m. Blood pressure 105/63. Pulse 102 and regular. 92% saturation on 75% FiO2, SIMV PRVC peep of 5 pressure support 10 rate of 14 tidal volume 450. Initial temperature in emergency room 102.0; subsequent temperature 99.5. Somewhat obese chronically ill-appearing male who appears number of years older than his stated age. Intubated and sedated. Does not respond to name. Skin is warm and dry. No grossly obvious evidence of rash in areas of skin examined. No subcutaneous nodules palpated. ENT: Hearing can't be adequately evaluated due to his current status. Eyes: No scleral icterus. Pupils equal and reactive to light at 4 mm. [place] conjunctivae. No [place] eyes. Neck is nontender to gentle palpation. Midline trachea. No palpable thyroid nodule mass enlargement or tenderness. Lymphatic: No palpable cervical or clavicular nodes. Neck and lymphatic exams limited by patient body habitus. Psychiatric: Can't be adequately evaluated due to his current status. Lungs: Auscultation reveals clear and equal breath sounds bilaterally. No use of accessory respiratory muscles. Cardiovascular: Heart regular rate and rhythm, without gallop murmur or rub. No carotid or abdominal aortic bruits. Bilateral symmetric moderate calf ankle and pedal edema. Not sure I can palpate dorsalis pedis or posterior tibial pulses on either side due to edema, but feet and toes are warm with excellent capillary refill.. Lower extremity exam is somewhat limited by his body habitus and intubated state. Unna boots have been opened on each lower extremity. Abdomen: soft, obese, nontender with positive bowel sounds. Unable to adequately evaluate abdomen for masses or organomegaly due to body habitus. Extremities: Feet are warm and dry. No calf tenderness to compression. Gentle manipulation of lower extremities fails to reveal any obvious evidence of injury or instability to knees hips or ankles. Neurologic: Patellar reflexes absent. Absent Babinski. Light touch can't be determined due to his current status. Hospital Course Hospital Course: Patient was referred to the hospitalist service for admission. He was intubated by the emergency room physician at the time. History was unable to be obtained except from the medical record. Patient initially done fairly well on BiPAP therapy but then became fatigued and required intubation. He is transferred to the ICU on sedation and mechanical ventilation. IV broad- spectrum antibiotics were initiated after cultures were obtained. Pulmonary was consulted Dr. Patterson, saw the patient in consult. He managed the ventilator weaning and adjustments. Patient was slow to progress due to mentation. He underwent an EEG, which showed generalized slowing likely from an encephalopathy. Most likely source being sepsis from pneumonia. Blood cultures 2 never grew any organisms. Urine culture was unremarkable. Sputum culture grew staph aureus, resistant only to Levaquin. IV antibiotics daily escalated. Finally on February 03, 10 days after admission the patient was able to be extubated. His mentation returned to normal. He was weak and slow to progress with physical therapy. On 02/03 he began having watery diarrhea. Stool culture showed positive for clostridium difficile diarrhea. Patient was started on Flagyl. His diarrhea has resolved. He was downgraded to the [facility] floor on 02/04. He began to increase his activity with physical therapy and nursing. He remains weak, due to prolonged intubation and bed rest. Physical therapy has recommended short-term rehabilitation. The patient agreed, discharge planning was consult did to begin bed search. Today the patient has been accepted to [facility]. His labs have normalized. He is back to his baseline oxygen requirements of 2-4 L/m by nasal cannula during the day and CPAP at night. Patient will need follow-up with pulmonology post discharge from rehabilitation. Physical Exam Vital Signs: Temp Pulse Resp BP Pulse Ox 98.3 F 93 20 120/76 98 02/08/17 08:06 02/08/17 08:06 02/08/17 08:06 02/08/17 08:06 02/08/17 08:06 Intake & Output 02/07/17 02/08/17 02/09/17 06:59 06:59 06:59 Intake Total 277 513 Output Total 1350 1200 Balance -1073 -687 Weight 112.7 kg 111.2 kg General appearance: PRESENT: no acute distress, obese, well-developed, well- nourished Head exam: PRESENT: atraumatic, normocephalic Eye exam: PRESENT: conjunctiva pink, EOMI, PERRLA. ABSENT: scleral icterus Ear exam: PRESENT: normal external ear exam Mouth exam: PRESENT: moist, tongue midline Neck exam: ABSENT: carotid bruit, JVD, lymphadenopathy, thyromegaly Respiratory exam: PRESENT: decreased breath sounds, symmetrical, unlabored. ABSENT: rales, rhonchi, wheezes Cardiovascular exam: PRESENT: RRR. ABSENT: diastolic murmur, rubs, systolic murmur Pulses: PRESENT: normal dorsalis pedis pul Vascular exam: PRESENT: normal capillary refill GI/Abdominal exam: PRESENT: normal bowel sounds, soft. ABSENT: distended, guarding, mass, organolmegaly, rebound, tenderness Rectal exam: PRESENT: deferred Extremities exam: PRESENT: +1 edema - bilateral lower extremities Musculoskeletal exam: PRESENT: full ROM Neurological exam: PRESENT: alert, awake, oriented to person, oriented to place , oriented to time, oriented to situation, CN II-XII grossly intact. ABSENT: motor sensory deficit Psychiatric exam: PRESENT: appropriate affect, normal mood. ABSENT: homicidal ideation, suicidal ideation Skin exam: PRESENT: dry, intact, warm. ABSENT: cyanosis, rash Results Laboratory Results: 02/08/17 06:22 02/08/17 06:22 02/08/17 02/08/17 06:22 06:22 WBC 9.2 RBC 4.38 Hgb 14.1 Hct 41.3 MCV 94 MCH 32.2 MCHC 34.2 RDW 15.4 H Plt Count 210 Sodium 141.4 Potassium 4.0 Chloride 103 Carbon Dioxide 27 Anion Gap 11 BUN 12 Creatinine 0.70 Est GFR ( Amer) > 60 Est GFR (Non-Af Amer) > 60 Glucose 97 Calcium 9.4 Total Bilirubin 0.9 AST 90 H ALT 143 H Alkaline Phosphatase 53 Total Protein 6.7 Albumin 3.4 L Impressions: Chest/Abdomen CTA 01/27/17 08:00 IMPRESSION: No CT angio evidence of acute pulmonary emboli or thoracic aortic dissection. Consolidation at both posterior lung bases atelectasis versus pneumonia. Endotracheal tube, nasogastric tube in good positioning Head CT 02/01/17 00:00 IMPRESSION: No acute intracranial findings.Scattered sinus disease and small right mastoid effusion. KUB X-Ray 02/02/17 22:24 IMPRESSION: NG tube with the tip in the region of the gastric body. Chest X-Ray 02/03/17 06:00 IMPRESSION: High position of NG tube. Transfer Plan - Disposition Transfer Plan: Discharge to [facility] - Time Spent with Patient Time spent with patient: Less than 30 Minutes Qualifiers PATEINT BEING DISCHARGED WITH ANY OF THE FOLLOWING DIAGNOSIS?: No Plan Discharge Plan: Transfer to [facility] Time Spent: Less than 30 Minutes
[2017-02-08] MEDS: SILVER SULFADIAZINE 1% CREAM 400 GM TP SCH (12:44)
[2017-02-08 17:50] VITALS: BP 118/74
--- NOTE | 2017-02-13 12:35 | PDOC PROGRESS REPORT ---
Subjective Progress Note for:: 01/28/17 Subjective:: Intubated unresponsive but not sedated Physical Exam Vital Signs: Temp Pulse Resp BP Pulse Ox 98.8 F 80 24 H 139/79 H 91 L 01/28/17 08:00 01/28/17 09:09 01/28/17 09:09 01/28/17 06:27 01/28/17 09:09 Intake & Output 01/27/17 01/28/17 01/29/17 06:59 06:59 06:59 Intake Total 4055 3980 Output Total 2888 6281 300 Balance 1170 -2245 -300 Weight 123.3 kg 122.6 kg General appearance: PRESENT: no acute distress, disheveled, thin, well-developed Head exam: PRESENT: normocephalic Eye exam: PRESENT: conjunctiva pale, EOMI Mouth exam: PRESENT: neck supple Neck exam: ABSENT: carotid bruit, JVD, lymphadenopathy, thyromegaly Respiratory exam: PRESENT: decreased breath sounds, prolonged expiratory phas, rhonchi, unlabored Cardiovascular exam: PRESENT: irregular rhythm, +S1, +S2 Pulses: PRESENT: normal radial pulses GI/Abdominal exam: PRESENT: normal bowel sounds, soft. ABSENT: distended, guarding, mass, organolmegaly, rebound, tenderness Rectal exam: PRESENT: deferred Musculoskeletal exam: PRESENT: normal inspection Neurological exam: PRESENT: awake Skin exam: PRESENT: dry, warm Results Laboratory Results: 01/27/17 03:51 01/28/17 04:32 01/27/17 01/28/17 01/28/17 23:45 04:32 08:30 Carbonic Acid 1.29 HCO3/H2CO3 Ratio 23:1 ABG pH 7.47 H ABG pCO2 43.0 ABG pO2 113.2 H ABG HCO3 30.7 H ABG O2 Saturation 98.4 H ABG Base Excess 6.3 FiO2 65% Sodium 147.3 H Potassium 3.5 L Chloride 108 H Carbon Dioxide 30 Anion Gap 9 BUN 25 H Creatinine 0.65 Est GFR ( Amer) > 60 Est GFR (Non-Af Amer) > 60 Glucose 208 H Calcium 8.4 Magnesium 2.4 H Urine Color YELLOW Urine Appearance CLEAR Urine pH 5.0 Ur Specific [place] 1.018 Urine Protein NEGATIVE Urine Glucose (UA) NEGATIVE Urine Ketones NEGATIVE Urine Blood NEGATIVE Urine Nitrite NEGATIVE Ur Leukocyte Esterase NEGATIVE Urine WBC (Auto) 2 Urine RBC (Auto) 5 01/24/17 13:50 Tracheal Aspirate Gram Stain - Final 01/24/17 13:50 Tracheal Aspirate Sputum Culture - Final Staphylococcus Aureus Normal [place] Impressions: Chest X-Ray 01/27/17 06:00 IMPRESSION: Endotracheal tube. Increasing bibasilar patchy density/ fluid. Chest/Abdomen CTA 01/27/17 08:00 IMPRESSION: No CT angio evidence of acute pulmonary emboli or thoracic aortic dissection. Consolidation at both posterior lung bases atelectasis versus pneumonia. Endotracheal tube, nasogastric tube in good positioning Assessment & Plan - Diagnosis (1) Acute and chronic respiratory failure with hypoxia Is this a current diagnosis for this admission?: Yes (2) GERD (gastroesophageal reflux disease) Qualifiers: Esophagitis presence: esophagitis presence not specified Qualified Code(s): K21.9 - Gastro-esophageal reflux disease without esophagitis Is this a current diagnosis for this admission?: Yes (3) Cellulitis of right leg Is this a current diagnosis for this admission?: Yes (4) Obesity, Class III, BMI 40-49.9 (morbid obesity) Is this a current diagnosis for this admission?: Yes (5) Peripheral vascular disease Is this a current diagnosis for this admission?: Yes (6) Alcohol dependency Qualifiers: Substance use status: unspecified alcohol-induced disorder Qualified Code(s): F10.29 - Alcohol dependence with unspecified alcohol-induced disorder Is this a current diagnosis for this admission?: Yes (7) COPD (chronic obstructive pulmonary disease) Qualifiers: COPD type: unspecified COPD Qualified Code(s): J44.9 - Chronic obstructive pulmonary disease, unspecified Is this a current diagnosis for this admission?: Yes (8) RONIT (obstructive sleep apnea) Is this a current diagnosis for this admission?: Yes (9) Tobacco use disorder Is this a current diagnosis for this admission?: Yes - Time Critical Time spent with patient: 35 or more minutes - 45 min
--- NOTE | 2017-02-13 12:37 | PDOC PROGRESS REPORT ---
Subjective Progress Note for:: 01/29/17 Subjective:: Intubated and sedated Physical Exam Vital Signs: Temp Pulse Resp BP Pulse Ox 99.3 F 86 24 H 113/69 95 01/31/17 08:00 01/31/17 08:00 01/31/17 08:00 01/31/17 08:00 01/31/17 08:00 Intake & Output 01/30/17 01/31/17 02/01/17 06:59 06:59 06:59 Intake Total 2619 1742 Output Total 5652 3550 75 Balance 234 -1808 -75 Weight 120.4 kg 119.8 kg General appearance: PRESENT: no acute distress, disheveled, obese Head exam: PRESENT: atraumatic, normocephalic Eye exam: PRESENT: conjunctiva pale Neck exam: ABSENT: carotid bruit, JVD, lymphadenopathy, thyromegaly Respiratory exam: PRESENT: decreased breath sounds, prolonged expiratory phas, rales, rhonchi, symmetrical, unlabored Cardiovascular exam: PRESENT: RRR, +S1 Pulses: PRESENT: normal radial pulses GI/Abdominal exam: PRESENT: normal bowel sounds, soft. ABSENT: distended, guarding, mass, organolmegaly, rebound, tenderness Rectal exam: PRESENT: deferred Gentrourinary exam: PRESENT: indwelling catheter Skin exam: PRESENT: dry, warm Results Laboratory Results: 01/30/17 04:35 01/31/17 03:50 01/31/17 01/31/17 01/31/17 03:50 04:00 04:00 Carbonic Acid 1.16 HCO3/H2CO3 Ratio 24:1 ABG pH 7.49 H ABG pCO2 38.4 ABG pO2 80.8 ABG HCO3 28.3 H ABG O2 Saturation 96.7 ABG Base Excess 4.7 FiO2 40% Sodium 147.1 H Potassium 4.2 Chloride 111 H Carbon Dioxide 29 Anion Gap 7 BUN 38 H Creatinine 0.60 Est GFR ( Amer) > 60 Est GFR (Non-Af Amer) > 60 Glucose 148 H Calcium 9.3 Phosphorus 3.6 Magnesium 2.4 H Urine Color YELLOW Urine Appearance SLIGHTLY-CLOUDY Urine pH 5.0 Ur Specific [place] 1.031 Urine Protein NEGATIVE Urine Glucose (UA) NEGATIVE Urine Ketones NEGATIVE Urine Blood SMALL H Urine Nitrite NEGATIVE Ur Leukocyte Esterase NEGATIVE Urine WBC (Auto) 1 Urine RBC (Auto) 32 Impressions: Chest/Abdomen CTA 01/27/17 08:00 IMPRESSION: No CT angio evidence of acute pulmonary emboli or thoracic aortic dissection. Consolidation at both posterior lung bases atelectasis versus pneumonia. Endotracheal tube, nasogastric tube in good positioning Chest X-Ray 01/31/17 06:00 IMPRESSION: Endotracheal tube tip 6 to 7 cm above the jose. Nasogastric tube tip and side port in the stomach. Assessment & Plan - Diagnosis (1) Acute and chronic respiratory failure with hypoxia Is this a current diagnosis for this admission?: Yes (2) GERD (gastroesophageal reflux disease) Qualifiers: Esophagitis presence: esophagitis presence not specified Qualified Code(s): K21.9 - Gastro-esophageal reflux disease without esophagitis Is this a current diagnosis for this admission?: Yes (3) Cellulitis of right leg Is this a current diagnosis for this admission?: Yes (4) Obesity, Class III, BMI 40-49.9 (morbid obesity) Is this a current diagnosis for this admission?: Yes (5) Peripheral vascular disease Is this a current diagnosis for this admission?: Yes (6) Alcohol dependency Qualifiers: Substance use status: unspecified alcohol-induced disorder Qualified Code(s): F10.29 - Alcohol dependence with unspecified alcohol-induced disorder Is this a current diagnosis for this admission?: Yes (7) COPD (chronic obstructive pulmonary disease) Qualifiers: COPD type: unspecified COPD Qualified Code(s): J44.9 - Chronic obstructive pulmonary disease, unspecified Is this a current diagnosis for this admission?: Yes (8) RONIT (obstructive sleep apnea) Is this a current diagnosis for this admission?: Yes (9) Tobacco use disorder Is this a current diagnosis for this admission?: Yes
--- NOTE | 2017-02-13 12:39 | PDOC PROGRESS REPORT ---
Subjective Progress Note for:: 02/03/17 Subjective:: stable Physical Exam Vital Signs: Temp Pulse Resp BP Pulse Ox 99.1 F 99 21 H 131/78 H 99 02/03/17 08:00 02/03/17 08:00 02/03/17 08:00 02/03/17 08:00 02/03/17 08:00 Intake & Output 02/02/17 02/03/17 02/04/17 06:59 06:59 06:59 Intake Total 2402 2202 Output Total 1955 4355 175 Balance 47 -1358 -175 Weight 118.2 kg 115.1 kg General appearance: PRESENT: no acute distress, cooperative, disheveled, obese Head exam: PRESENT: atraumatic, normocephalic Eye exam: PRESENT: conjunctiva pale, EOMI Mouth exam: PRESENT: moist, neck supple Neck exam: ABSENT: carotid bruit, JVD, lymphadenopathy, thyromegaly Respiratory exam: PRESENT: decreased breath sounds, prolonged expiratory phas, rales, stridor, symmetrical, unlabored Cardiovascular exam: PRESENT: RRR, +S1, +S2 Pulses: PRESENT: normal radial pulses Rectal exam: PRESENT: deferred Gentrourinary exam: PRESENT: indwelling catheter Neurological exam: PRESENT: awake Skin exam: PRESENT: dry Results Laboratory Results: 02/03/17 04:07 02/03/17 04:07 02/02/17 02/02/17 02/02/17 03:44 03:44 09:43 WBC RBC Hgb Hct MCV MCH MCHC RDW Plt Count Carbonic Acid HCO3/H2CO3 Ratio ABG pH ABG pCO2 ABG pO2 ABG HCO3 ABG O2 Saturation ABG Base Excess FiO2 Sodium Potassium Chloride Carbon Dioxide Anion Gap BUN Creatinine Est GFR ( Amer) Est GFR (Non-Af Amer) Glucose Calcium Magnesium Ammonia < 8.7 L Vitamin B12 > 1000.0 H TSH 0.59 02/03/17 02/03/17 02/03/17 04:07 04:07 06:25 WBC 14.7 H RBC 4.52 Hgb 14.4 Hct 43.3 MCV 96 MCH 31.8 MCHC 33.2 RDW 15.7 H Plt Count 203 Carbonic Acid 1.21 HCO3/H2CO3 Ratio 22:1 ABG pH 7.45 ABG pCO2 40.2 ABG pO2 78.3 L ABG HCO3 27.2 H ABG O2 Saturation 96.1 ABG Base Excess 3.0 FiO2 40% Sodium 145.7 H Potassium 4.2 Chloride 106 Carbon Dioxide 30 Anion Gap 10 BUN 22 H Creatinine 0.71 Est GFR ( Amer) > 60 Est GFR (Non-Af Amer) > 60 Glucose 93 Calcium 9.3 Magnesium 2.1 Ammonia Vitamin B12 TSH Impressions: Chest/Abdomen CTA 01/27/17 08:00 IMPRESSION: No CT angio evidence of acute pulmonary emboli or thoracic aortic dissection. Consolidation at both posterior lung bases atelectasis versus pneumonia. Endotracheal tube, nasogastric tube in good positioning Head CT 02/01/17 00:00 IMPRESSION: No acute intracranial findings.Scattered sinus disease and small right mastoid effusion. KUB X-Ray 02/02/17 22:24 IMPRESSION: NG tube with the tip in the region of the gastric body. Chest X-Ray 02/03/17 06:00 IMPRESSION: High position of NG tube. Assessment & Plan - Diagnosis (1) Acute and chronic respiratory failure with hypoxia Is this a current diagnosis for this admission?: Yes (2) GERD (gastroesophageal reflux disease) Qualifiers: Esophagitis presence: esophagitis presence not specified Qualified Code(s): K21.9 - Gastro-esophageal reflux disease without esophagitis Is this a current diagnosis for this admission?: Yes (3) Cellulitis of right leg Is this a current diagnosis for this admission?: Yes (4) Obesity, Class III, BMI 40-49.9 (morbid obesity) Is this a current diagnosis for this admission?: Yes (5) Peripheral vascular disease Is this a current diagnosis for this admission?: Yes (6) Alcohol dependency Qualifiers: Substance use status: unspecified alcohol-induced disorder Qualified Code(s): F10.29 - Alcohol dependence with unspecified alcohol-induced disorder Is this a current diagnosis for this admission?: Yes (7) COPD (chronic obstructive pulmonary disease) Qualifiers: COPD type: unspecified COPD Qualified Code(s): J44.9 - Chronic obstructive pulmonary disease, unspecified Is this a current diagnosis for this admission?: Yes (8) RONIT (obstructive sleep apnea) Is this a current diagnosis for this admission?: Yes (9) Tobacco use disorder Is this a current diagnosis for this admission?: Yes
== END 2017-02-08 19:45 | DRG 870 ==
LOC: ER 23:17 → UNDOADMIN 01-24 03:46 → EH 01-24 03:46 → ICU 01-24 10:44 → 3S 02-03 14:01
PROVIDERS: ADMIT Family Medicine; ATTEND Family Medicine
PROC: 0BH17EZ Insertion of Endotracheal Airway into Trachea, Via Natural or Artificial Opening (ICD-10-PCS; principal; 2017-01-24)
PROC: 5A1955Z Respiratory Ventilation, Greater than 96 Consecutive Hours (ICD-10-PCS; 2017-01-24)
DX: A41.9 Sepsis, unspecified organism (principal); J96.21 Acute and chronic respiratory failure with hypoxia; J15.211 Pneumonia due to Methicillin susceptible Staphylococcus aureus; G93.40 Encephalopathy, unspecified; J44.0 Chronic obstructive pulmonary disease with (acute) lower respiratory infection; L03.115 Cellulitis of right lower limb; E66.2 Morbid (severe) obesity with alveolar hypoventilation; E87.0 Hyperosmolality and hypernatremia; A04.7 Enterocolitis due to Clostridium difficile; R65.20 Severe sepsis without septic shock; F10.20 Alcohol dependence, uncomplicated; J44.9 Chronic obstructive pulmonary disease, unspecified; I25.10 Atherosclerotic heart disease of native coronary artery without angina pectoris; E87.6 Hypokalemia; I25.2 Old myocardial infarction; F17.210 Nicotine dependence, cigarettes, uncomplicated; M19.90 Unspecified osteoarthritis, unspecified site; G89.29 Other chronic pain; F12.90 Cannabis use, unspecified, uncomplicated; I89.0 Lymphedema, not elsewhere classified; I87.8 Other specified disorders of veins; Z86.711 Personal history of pulmonary embolism; I73.9 Peripheral vascular disease, unspecified; K21.9 Gastro-esophageal reflux disease without esophagitis; Z86.718 Personal history of other venous thrombosis and embolism; K44.9 Diaphragmatic hernia without obstruction or gangrene; Z16.23 Resistance to quinolones and fluoroquinolones; I95.9 Hypotension, unspecified; G70.9 Myoneural disorder, unspecified; K74.60 Unspecified cirrhosis of liver; E78.5 Hyperlipidemia, unspecified; I11.0 Hypertensive heart disease with heart failure; I50.9 Heart failure, unspecified; Z82.49 Family history of ischemic heart disease and other diseases of the circulatory system; Z88.6 Allergy status to analgesic agent; Z88.1 Allergy status to other antibiotic agents; Z90.81 Acquired absence of spleen; Z79.01 Long term (current) use of anticoagulants; Z68.34 Body mass index [BMI] 34.0-34.9, adult; Z86.14 Personal history of Methicillin resistant Staphylococcus aureus infection; Z79.891 Long term (current) use of opiate analgesic; Z99.81 Dependence on supplemental oxygen; Z79.899 Other long term (current) drug therapy; Z95.5 Presence of coronary angioplasty implant and graft
CPT/HCPCS: 36415; 70450; 71010; 71275; 74000; 80048; 80053; 80202; 80307; 81001; 82140; 82550; 82553; 82607; 82803; 82962; 83735; 84100; 84443; 84478; 84484; 85025; 85027; 85610; 85730; 86317; 87040; 87070; 87077; 87086; 87186; 87205; 87493; 87804; 93005; 93010; 93306; 94002; 94003; 94640; 94660; 94667; 94668; 95819; 96365; 96368; 99291; G8978-GP; G8979-GP; G8987-GO; G8988-GO; G8996-GN; G8997-GN; J0330; J1170; J1650; J1815; J1940; J1956; J2060; J2250; J2543; J2704; J2920; J2930; J3010; J3370; J3411; J3475; J3480; J3490; J7030; J7060; J7512; J7620; S0164

== ENCOUNTER 2017-03-31 12:28 | Emergency (ER) | payer MEDICARE ==
[2017-03-31] MEDS ORDERED: NORMAL SALINE 1000 ML 1,000 ML IV ONE (13:36)
[2017-03-31] MEDS ORDERED: IPRATROPIUM/ALBUTEROL 0.5-2.5 MG/3 ML AMPUL NEB ONE (14:04)
--- NOTE | 2017-03-31 14:04 | ER Document Report ---
ED Medical Screen (RME) - General Chief Complaint: Laceration Stated Complaint: FALL HEAD LACERATION Time Seen by Provider: 03/31/17 13:36 Notes: Patient is a 7-year-old male who presents via EMS after witnessed fall at a bar. Patient was sitting at the bar when he had a sip of beer started coughing. positive fall with positive LOC and head laceration on his forehead. Patient states that he was on 2 L inside of his normal 4 while he was at the bar. 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 HEAD: Normocephalic, 3cm superficial laceration on the forehead, minimal bleeding, nontender EYES: Pupils equal, round, and reactive to light. Extraocular movements intact. ENT: Oral mucosa moist, tongue midline. NECK: Full range of motion. Supple. Trachea midline. LUNGS: Breath sounds diminished bilaterally worse on the right.. No respiratory distress. HEART: Regular rate and rhythm. No murmurs, gallops, or rubs. ABDOMEN: Soft, nondistended, nontender. No guarding, rebound, or rigidity.. Bowel sounds present in all 4 quadrants. Soft umbilical hernia that is reducible. EXTREMITIES: Moves all 4 extremities spontaneously. 2+ pitting edema bilateral lower extremities, radial and dorsalis pedis pulses 2/4 bilaterally. No cyanosis. NEUROLOGICAL: Alert and oriented x4. Normal speech. PSYCH: Normal affect, normal mood. SKIN: Warm, dry, normal turgor. No rashes or lesions noted. I have greeted and performed a rapid initial assessment of this patient. A comprehensive ED assessment and evaluation of the patient, analysis of test results and completion of the medical decision making process will be conducted by additional ED providers. TRAVEL OUTSIDE OF THE [place] IN LAST 30 DAYS: No - Related Data Allergies/Adverse Reactions: cephalexin monohydrate [From Keflex] Allergy (Intermediate, Verified 06/08/16 08 :54) codeine Allergy (Verified 06/08/16 08:54) morphine Allergy (Verified 06/08/16 08:54) Past Medical History - Social History Chew tobacco use (# tins/day): No Frequency of alcohol use: Heavy Drug Abuse: None - Past Medical History Cardiac Medical History: Reports: Hx Congestive Heart Failure, Hx DVT, Hx Heart Attack, Hx Hypercholesterolemia, Hx Hypertension, Hx Peripheral Vascular Disease , Hx Pulmonary Embolism Pulmonary Medical History: Reports: Hx Asthma, Hx Bronchitis, Hx COPD, Hx Pneumonia, Hx Sleep Apnea Denies: Hx Tuberculosis Neurological Medical History: Denies: Hx Seizures Renal/ Medical History: Denies: Hx Peritoneal Dialysis GI Medical History: Reports: Hx Gastroesophageal Reflux Disease, Hx Hiatal Hernia, Hx Ulcer Psychiatric Medical History: Denies: Hx Depression Infectious Medical History: Reports: 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 Denies: Hx Appendectomy, Hx Bowel Surgery, Hx Coronary Artery Bypass Graft, Hx Gastric Bypass Surgery, Hx Pacemaker - Immunizations Hx Diphtheria, Pertussis, Tetanus Vaccination: Yes Physical Exam - Vital signs Vitals: Temp Pulse Resp BP Pulse Ox 98.3 F 86 18 116/72 95 03/31/17 12:46 03/31/17 12:46 03/31/17 12:46 03/31/17 12:46 03/31/17 12:46 Course - Vital Signs Vital signs: Temp Pulse Resp BP Pulse Ox 98.3 F 86 21 H 116/72 95 03/31/17 12:46 03/31/17 12:46 03/31/17 13:30 03/31/17 12:46 03/31/17 12:46
[2017-03-31] MEDS ORDERED: LORAZEPAM INJ 2 MG/1 ML VIAL IV ONE (14:26)
[2017-03-31] MEDS ORDERED: LIDOCAINE 4%/TETRACAINE 0.5%/EPI 0.18% 5 ML TOPICAL SOLN TOP ONE (14:26)
[2017-03-31 14:39] LABS: APPEARANCE,URINE CLOUDY; BILIRUBIN,URINE NEGATIVE (NEGATIVE); GLUCOSE, URINE NEGATIVE (NEGATIVE); KETONES,URINE NEGATIVE (NEGATIVE); LEUKOCYTE ESTERASE,URINE NEGATIVE (NEGATIVE); NITRITE,URINE NEGATIVE (NEGATIVE); PROTEIN,URINE NEGATIVE (NEGATIVE); URINE SPECIFIC GRAVITY 1.005; UROBILINOGEN,URINE NEGATIVE mg/dL (<2.0)
[2017-03-31 14:40] LABS: ABSOLUTE EOSINOPHILS # (AUTO) 0.1 10^3/uL (0.0-0.6); ABSOLUTE LYMPHOCYTES (AUTO) 3.3 10^3/uL (0.5-4.7); ABSOLUTE MONOCYTES (AUTO) 0.8 10^3/uL (0.1-1.4); ABSOLUTE NEUT (AUTO) 6.2 10^3/uL (1.7-8.2); BASOPHILS % (AUTO) 0.2 % (0-2); EOSINOPHILS % (AUTO) 0.9 % (0-6); HEMATOCRIT 39.2 % (37.9-51.0); HEMOGLOBIN 13.2 g/dL (13.5-17.0); HGB HCT DIFFERENCE 0.4; MEAN CORPUSCULAR HEMOGLOBIN 31.7 pg (27.0-33.4); MEAN CORPUSCULAR HGB CONC 33.6 g/dL (32.0-36.0); MEAN CORPUSCULAR VOLUME 94 fl (80-97); MONOCYTES % (AUTO) 7.5 % (3-13); RED BLOOD COUNT 4.17 10^6/uL (4.35-5.55); RED CELL DISTRIBUTION WIDTH 16.4 % (11.5-14.0); SEGMENTED NEUTROPHILS % (AUTO) 59.4 % (42-78); WHITE BLOOD COUNT 10.4 10^3/uL (4.0-10.5)
[2017-03-31 14:42] LABS: PROTHROMBIN TIME 24.2 SEC (11.4-15.4)
[2017-03-31 14:43] LABS: PARTIAL THROMBOPLASTIN TIME 40.9 SEC (23.5-35.8)
[2017-03-31 15:00] LABS: ALANINE AMINOTRANSFERASE 27 U/L (21-72); ALBUMIN 3.1 g/dL (3.5-5.0); ALCOHOL 12 mg/dL (NONE DETECTED); ALKALINE PHOSPHATASE 97 U/L (38-126); ANION GAP 11 (5-19); ASPARTATE AMINO TRANSFERASE 30 U/L (17-59); BILIRUBIN,DIRECT 0.3 mg/dL (0.0-0.4); BILIRUBIN,TOTAL 0.6 mg/dL (0.2-1.3); BLOOD UREA NITROGEN 8 mg/dL (7-20); CARBON DIOXIDE 31 mmol/L (22-30); CHLORIDE 99 mmol/L (98-107); CREATINE KINASE 74 U/L (55-170); CREATININE RESULT 0.69 mg/dL (0.52-1.25); GLUCOSE 99 mg/dL (75-110); POTASSIUM 3.3 mmol/L (3.6-5.0); SODIUM 141.1 mmol/L (137-145)
[2017-03-31 15:12] LABS: TROPONIN I < 0.012 ng/mL
[2017-03-31 15:13] LABS: CREATINE KINASE MB 0.86 ng/mL (<4.55)
--- NOTE | 2017-03-31 15:17 | ER Document Report ---
ED General - General Chief Complaint: Laceration Stated Complaint: FALL HEAD LACERATION Time Seen by Provider: 03/31/17 13:36 Mode of Arrival: Medic Information source: Patient TRAVEL OUTSIDE OF THE [place] IN LAST 30 DAYS: No - HPI Notes: Patient is a 61-year-old male presents to the emergency department with report Of a witnessed fall at a bar. The patient was on a barstool on 2 L of oxygen, whereas at home is usually on 4 L of oxygen. The patient states he had an episode of coughing which is not unusual for him, and he has had repetitive episodes where he is coughed and passed out in the past. When the patient fell off the bar, he struck his forehead and injured his neck. He denies any chest pain or change in his chronic back pain. He reports no difficulty breathing or abdominal pain. Patient denies any recent medication changes. Is on Xarelto related to history of DVTs. Patient also has a history of COPD and is on up to 4 L of oxygen at home hyperlipidemia, previous TN, CVA/TIA and chronic lower back pain. Patient reports he drinks heavily, and does get tremulous in the morning when he does not drink. He also reports previous history of seizures, but there is no observed seizure today. There is a history of chronic midline abdominal hernia which patient states is unchanged. Tetanus is up-to-date. - Related Data Allergies/Adverse Reactions: cephalexin monohydrate [From Keflex] Allergy (Intermediate, Verified 06/08/16 08 :54) codeine Allergy (Verified 06/08/16 08:54) morphine Allergy (Verified 06/08/16 08:54) Past Medical History - General Information source: Patient - Social History Smoking Status: Current Every Day Smoker Chew tobacco use (# tins/day): No Frequency of alcohol use: Heavy Drug Abuse: None Lives with: Friend Family History: COPD, Hypertension Patient has suicidal ideation: No Patient has homicidal ideation: No - Past Medical History Cardiac Medical History: Reports: Hx Congestive Heart Failure, Hx DVT, Hx Heart Attack, Hx Hypercholesterolemia, Hx Hypertension, Hx Peripheral Vascular Disease , Hx Pulmonary Embolism Pulmonary Medical History: Reports: Hx Asthma, Hx Bronchitis, Hx COPD, Hx Pneumonia, Hx Sleep Apnea Denies: Hx Tuberculosis Neurological Medical History: Denies: Hx Seizures Renal/ Medical History: Denies: Hx Peritoneal Dialysis GI Medical History: Reports: Hx Gastroesophageal Reflux Disease, Hx Hiatal Hernia, Hx Ulcer Psychiatric Medical History: Denies: Hx Depression Infectious Medical History: Reports: 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 Denies: Hx Appendectomy, Hx Bowel Surgery, Hx Coronary Artery Bypass Graft, Hx Gastric Bypass Surgery, Hx Pacemaker - Immunizations Hx Diphtheria, Pertussis, Tetanus Vaccination: Yes Hx Pneumococcal Vaccination: 03/25/13 Review of Systems - Review of Systems Notes: REVIEW OF SYSTEMS: CONSTITUTIONAL : Denies fever, chills, or sweats. Denies recent illness. EENT: Denies eye, ear, throat, or mouth pain or symptoms. Denies nasal or sinus congestion or discharge. Denies throat, tongue, or mouth swelling or difficulty swallowing. CARDIOVASCULAR: Denies chest pain. Denies palpitations or racing or irregular heart beat. Denies ankle edema. RESPIRATORY: Denies cough, cold, or chest congestion. Denies shortness of breath, difficulty breathing, or wheezing. GASTROINTESTINAL: Denies abdominal pain or distention. Denies nausea, vomiting , or diarrhea. Denies blood in vomitus, stools, or per rectum. Denies black, tarry stools. Denies constipation. GENITOURINARY: Denies difficulty urinating, painful urination, burning, frequency, blood in urine, or discharge. MUSCULOSKELETAL: Denies back stiffness. Denies joint pain or swelling. SKIN: Denies rash, lesions or sores. HEMATOLOGIC : Denies easy bruising or bleeding. Reports chronic lower extremity edema right greater than left which is unchanged from previous. LYMPHATIC: Denies swollen, enlarged glands. NEUROLOGICAL: Denies confusion or altered mental status. Patient reports that his dizziness and lightheaded sensation was transient after coughing, and he reports multiple previous episodes of same. Patient reports a very minor tremor currently, but he states he had about 2-1/2 beers this morning and he does not feel he is in DTs. Denies weakness or paralysis or loss of use of either side. Denies problems with gait or speech. Denies sensory loss, numbness, or tingling. No reported seizure with the episode today. PSYCHIATRIC: Denies anxiety or stress. Denies depression, suicidal ideation, or homicidal ideation. ALL OTHER SYSTEMS REVIEWED AND NEGATIVE. Dictation was performed using [employer] voice recognition software Physical Exam - Vital signs Vitals: Temp Pulse Resp BP Pulse Ox 98.3 F 86 18 116/72 95 03/31/17 12:46 03/31/17 12:46 03/31/17 12:46 03/31/17 12:46 03/31/17 12:46 - Notes Notes: PHYSICAL EXAMINATION: GENERAL: Well-appearing, well-nourished and in no acute distress. HEAD: Contusion abrasion midline anterior forehead with 1.2 cm laceration. No bony deformity or crepitance. EYES: Pupils equal round and reactive to light, extraocular movements intact, sclera anicteric, conjunctiva are normal. ENT: Nares patent, oropharynx clear without exudates. Moist mucous membranes. NECK: supple without lymphadenopathy. Tender posterior midline along C3 through 7. No crepitance or bony deformity. LUNGS: Breath sounds clear to auscultation bilaterally and equal. No wheezes rales or rhonchi. HEART: Regular rate and rhythm without murmurs ABDOMEN: Soft, nontender, nondistended abdomen. No guarding, no rebound. No masses appreciated. Musculoskeletal: Normal range of motion. No cyanosis. Patient has 3+ bilateral lower extremity edema with mild erythema, which patient states is chronic. No significant skin ulceration. NEUROLOGICAL: Cranial nerves grossly intact. Normal speech, normal gait. Normal sensory, motor exams. No significant tremor PSYCH: Normal mood, normal affect. SKIN: Warm, Dry, normal turgor, no rashes or lesions noted. Course - Re-evaluation Re-evalutation: 03/31/17 16:02 Patient showed no significant intoxication, and Ativan 1 mg IV was given to prevent any withdrawal. On repeat exam after the Ativan he felt calm and appropriate there were stable vital signs. Patient was given normal saline infusion. Following discussion of risks alternatives benefits, the patient had topical anesthetic LET applied to the wound then Dermabond was used to reapproximate and close the wound with good result. Patient tolerated this well. Blood loss none. Lab studies showed no significant abnormality CT scan of the head and neck were both negative. Syncopal event for multiple previous episodes and was tussive in nature. There is no observed seizure activity with this episode and there is no evidence for DTs currently. No significant coagulopathy or anemia or renal insufficiency or significant electrolyte imbalance. 03/31/17 16:04 We will check orthostatics prior to discharge and ambulate the patient. Patient was told that he needed to cut back on his alcohol intake gradually. 03/31/17 16:06 03/31/17 16:08 No evidence for pneumonia or obvious rib fracture or congestive heart failure. - Vital Signs Vital signs: Temp Pulse Resp BP Pulse Ox 98.3 F 86 21 H 116/72 95 03/31/17 12:46 03/31/17 12:46 03/31/17 13:30 03/31/17 12:46 03/31/17 12:46 - Laboratory Result Diagrams: 03/31/17 13:36 03/31/17 14:14 Laboratory results interpreted by me: 03/31/17 03/31/17 03/31/17 13:36 13:36 14:14 RBC 4.17 L Hgb 13.2 L RDW 16.4 H PT 24.2 H APTT 40.9 H Potassium 3.3 L Carbon Dioxide 31 H Albumin 3.1 L - Diagnostic Test Radiology reviewed: Reports reviewed - EKG Interpretation by Nd EKG shows normal: Sinus rhythm Additional EKG results interpreted by me: 03/31/17 16:01 EKG as interpreted by hi showed normal sinus rhythm heart rate of 86 with no obvious evidence for acute TN or ischemia identified. No significant change from previous EKG reviewed from 01/23/17. Discharge - Discharge Clinical Impression: Syncope and collapse Head injury Qualifiers: Encounter type: initial encounter Qualified Code(s): S09.90XA - Unspecified injury of head, initial encounter Neck strain Qualifiers: Encounter type: initial encounter Qualified Code(s): S16.1XXA - Strain of muscle, fascia and tendon at neck level, initial encounter Facial laceration Qualifiers: Encounter type: initial encounter Qualified Code(s): S01.81XA - Laceration without foreign body of other part of head, initial encounter Condition: Stable Disposition: HOME, SELF-CARE Instructions: Syncopal Episode ([facility]), Neck Injury (Cervical Strain) ([facility]), Facial Laceration ([facility]) Additional Instructions: Stand up slowly. Sit down if you feel lightheaded. Cut back on your alcohol use gradually.
[2017-03-31 20:18] VITALS: BP 107/62
--- NOTE | 2017-04-01 17:43 | EKG REPORT ---
SEVERITY:- ABNORMAL ECG - SINUS RHYTHM MULTIPLE ATRIAL PREMATURE COMPLEXES BORDERLINE PROLONGED QT INTERVAL : Confirmed by: Danay Hutton MD 01-Apr-2017 17:42:26
== END 2017-03-31 20:19 | disposition home or self-care (01) ==
LOC: ER 12:28
DX: R55 Syncope and collapse (principal); S09.90XA Unspecified injury of head, initial encounter; S16.1XXA Strain of muscle, fascia and tendon at neck level, initial encounter; S01.81XA Laceration without foreign body of other part of head, initial encounter; W19.XXXA Unspecified fall, initial encounter; Z79.01 Long term (current) use of anticoagulants; Z86.718 Personal history of other venous thrombosis and embolism; J44.9 Chronic obstructive pulmonary disease, unspecified; Z99.81 Dependence on supplemental oxygen
CPT/HCPCS: 93005; 94640; 99285; 96361; 96374; 36415; 82553; 82962; 80307; 82550; 85025; 85610; 85730; 80053; 81001; 84484; 71020; 70450; 72125; 93010; J2060; J7030; A9270; J3490; J7620

== ENCOUNTER 2017-04-22 11:08 | Inpatient (IN) | payer MEDICARE ==
[2017-04-22] MEDS ORDERED: VANCOMYCIN HCL INJ 1000 MG VIAL IV ONE (11:19)
[2017-04-22 11:46] LABS: ABSOLUTE LYMPHOCYTES (AUTO) 2.1 10^3/uL (0.5-4.7); ABSOLUTE MONOCYTES (AUTO) 1.1 10^3/uL (0.1-1.4); ABSOLUTE NEUT (AUTO) 9.8 10^3/uL (1.7-8.2); BASOPHILS % (AUTO) 0.1 % (0-2); EOSINOPHILS % (AUTO) 0.3 % (0-6); HEMATOCRIT 38.7 % (37.9-51.0); HGB HCT DIFFERENCE 0.3; LYMPHOCYTES % (AUTO) 15.9 % (13-45); MEAN CORPUSCULAR HEMOGLOBIN 32.2 pg (27.0-33.4); MEAN CORPUSCULAR HGB CONC 33.6 g/dL (32.0-36.0); MEAN CORPUSCULAR VOLUME 96 fl (80-97); MONOCYTES % (AUTO) 8.6 % (3-13); RED BLOOD COUNT 4.04 10^6/uL (4.35-5.55); RED CELL DISTRIBUTION WIDTH 16.8 % (11.5-14.0); SEGMENTED NEUTROPHILS % (AUTO) 75.1 % (42-78)
[2017-04-22 11:55] LABS: PROTHROMBIN TIME 26.6 SEC (11.4-15.4)
[2017-04-22 11:56] LABS: PARTIAL THROMBOPLASTIN TIME 59.7 SEC (23.5-35.8)
[2017-04-22 12:06] LABS: ALANINE AMINOTRANSFERASE 31 U/L (21-72); ALBUMIN 2.9 g/dL (3.5-5.0); ALKALINE PHOSPHATASE 107 U/L (38-126); ANION GAP 9 (5-19); ASPARTATE AMINO TRANSFERASE 44 U/L (17-59); BILIRUBIN,DIRECT 0.4 mg/dL (0.0-0.4); BLOOD UREA NITROGEN 9 mg/dL (7-20); CALCIUM 8.5 mg/dL (8.4-10.2); CARBON DIOXIDE 32 mmol/L (22-30); CHLORIDE 96 mmol/L (98-107); CREATININE RESULT 0.64 mg/dL (0.52-1.25); GLUCOSE 133 mg/dL (75-110); MAGNESIUM 1.7 mg/dL (1.6-2.3); SODIUM 137.4 mmol/L (137-145); TOTAL PROTEIN 7.3 g/dL (6.3-8.2)
[2017-04-22 12:11] LABS: POTASSIUM 2.9 mmol/L (3.6-5.0)
[2017-04-22] MEDS ORDERED: POTASSIUM CHLORIDE 10 MEQ TABLET.SA PO ONE (12:17)
[2017-04-22] MEDS ORDERED: POTASSI CL 20 MEQ/50 ML RIDER 50 ML IV ONE (12:18)
--- NOTE | 2017-04-22 12:20 | ER Document Report ---
ED General - General Chief Complaint: Leg Pain Stated Complaint: LEG PAIN Time Seen by Provider: 04/22/17 11:14 TRAVEL OUTSIDE OF THE [place] IN LAST 30 DAYS: No - HPI Patient complains to provider of: Bilateral leg pain erythema Notes: He has a history of CHF COPD chronic venous stasis changes chronic lower leg swelling chronic cellulitis patient states erythema has worsened going above his knee at this time. States subjective fevers and chills. Patient continues to smoke patient does not wear his oxygen patient is on chronic oxygen. On my evaluation patient is in no obvious distress patient otherwise feels fine no other complaints other than leg pain. - Related Data Allergies/Adverse Reactions: cephalexin monohydrate [From Keflex] Allergy (Intermediate, Verified 06/08/16 08 :54) codeine Allergy (Verified 06/08/16 08:54) morphine Allergy (Verified 06/08/16 08:54) Past Medical History - Social History Smoking Status: Unknown if Ever Smoked Family History: COPD, Hypertension - Past Medical History Cardiac Medical History: Reports: Hx Congestive Heart Failure, Hx DVT, Hx Heart Attack, Hx Hypercholesterolemia, Hx Hypertension, Hx Peripheral Vascular Disease , Hx Pulmonary Embolism Pulmonary Medical History: Reports: Hx Asthma, Hx Bronchitis, Hx COPD, Hx Pneumonia, Hx Sleep Apnea Denies: Hx Tuberculosis Neurological Medical History: Denies: Hx Seizures Renal/ Medical History: Denies: Hx Peritoneal Dialysis GI Medical History: Reports: Hx Gastroesophageal Reflux Disease, Hx Hiatal Hernia, Hx Ulcer Psychiatric Medical History: Denies: Hx Depression Infectious Medical History: Reports: 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 Denies: Hx Appendectomy, Hx Bowel Surgery, Hx Coronary Artery Bypass Graft, Hx Gastric Bypass Surgery, Hx Pacemaker - Immunizations Hx Diphtheria, Pertussis, Tetanus Vaccination: Yes Hx Pneumococcal Vaccination: 03/25/13 Review of Systems - Review of Systems Constitutional: No symptoms reported EENT: No symptoms reported Cardiovascular: No symptoms reported Respiratory: No symptoms reported Gastrointestinal: No symptoms reported Genitourinary: No symptoms reported Male Genitourinary: No symptoms reported Musculoskeletal: No symptoms reported Skin: No symptoms reported Hematologic/Lymphatic: No symptoms reported Neurological/Psychological: Other - Lower extremity swelling bilaterally with erythema -: Yes All other systems reviewed and negative Physical Exam - Vital signs Vitals: Temp Pulse Resp BP Pulse Ox 98.6 F 92 18 103/60 96 04/22/17 11:15 04/22/17 11:15 04/22/17 11:15 04/22/17 11:15 04/22/17 11:15 Interpretation: Normal - General General appearance: Appears well, Alert - HEENT Head: Normocephalic, Atraumatic Eyes: Normal Pupils: PERRL - Respiratory Respiratory status: No respiratory distress Chest status: Nontender Breath sounds: Normal Chest palpation: Normal - Cardiovascular Rhythm: Regular Heart sounds: Normal auscultation Murmur: No - Abdominal Inspection: Normal Distension: No distension Bowel sounds: Normal Tenderness: Nontender Organomegaly: No organomegaly - Back Back: Normal, Nontender - Extremities General upper extremity: Normal inspection, Nontender, Normal color, Normal ROM , Normal temperature General lower extremity: Normal inspection, Nontender, Edema - 4+ pitting edema with erythema redness more going above the knee from the ankle. Patient does have a chronic healing wound on the medial malleolus of the left leg., Normal color, Normal ROM, Normal temperature, Normal weight bearing - Neurological Neuro grossly intact: Yes Cognition: Normal Orientation: AAOx4 Arthur Coma Scale Eye Opening: Spontaneous Arthur Coma Scale Verbal: Oriented [place] Coma Scale Motor: Obeys Commands Arthur Coma Scale Total: 15 Speech: Normal Motor strength normal: LUE, RUE, LLE, RLE Sensory: Normal - Psychological Associated symptoms: Normal affect, Normal mood - Skin Skin Temperature: Warm Skin Moisture: Dry Skin Color: Normal Course - Re-evaluation Re-evalutation: 04/22/17 14:57 Lab work that shows leukocytosis with hypokalemia. Patient was given oral and IV replacement. Patient was started on Vanco mycin. Concerned about cellulitis patient's case was discussed with hospitalist will admit for further evaluation and antibiotic therapy. - Vital Signs Vital signs: Temp Pulse Resp BP Pulse Ox 98.4 F 94 16 119/66 96 04/22/17 13:56 04/22/17 13:56 04/22/17 13:56 04/22/17 13:56 04/22/17 11:15 - Laboratory Result Diagrams: 04/22/17 11:30 04/22/17 11:30 Laboratory results interpreted by me: 04/22/17 04/22/17 04/22/17 11:30 11:30 11:30 WBC 13.0 H RBC 4.04 L Hgb 13.0 L RDW 16.8 H Absolute Neutrophils 9.8 H PT 26.6 H APTT 59.7 H Potassium 2.9 L* Chloride 96 L Carbon Dioxide 32 H Glucose 133 H Albumin 2.9 L Discharge - Discharge Clinical Impression: Hypokalemia, Bilateral cellulitis of lower leg, Morbid obesity, RONIT ( obstructive sleep apnea), Tobacco use disorder, History of DVT (deep vein thrombosis), Anticoagulation therapy with Xarelto Disposition: ADMITTED INPATIENT Admitting Provider: Hospitalist - [facility] Admitted: Telemetry
[2017-04-22] MEDS ORDERED: OXYCODONE-ACETAMINOPHEN 5-325 MG TABLET PO ONE (12:43)
[2017-04-22] MEDS ORDERED: ONDANSETRON HCL INJ/PF 4 MG/2 ML SDV IV PRN (12:54)
[2017-04-22] MEDS ORDERED: ACETAMINOPHEN 325 MG TABLET PO PRN (12:54)
[2017-04-22] MEDS ORDERED: ZOLPIDEM TARTRATE 5 MG TABLET PO PRN (12:54)
[2017-04-22] MEDS ORDERED: LORAZEPAM INJ 2 MG/1 ML VIAL IV PRN (13:20)
--- NOTE | 2017-04-22 14:32 | PDOC H&P ---
History of Present Illness Admission Date/PCP: 04/22/17 12:54 Patient complains of: Left leg pain and redness History of Present Illness: ANALY NEVAREZ is a 61 year old male with history of chronic bilateral lower extremity lymphedema with recurrent cellulitis, well-known to the hospitalist service. He also has a history of peripheral arterial disease. Patient states she has been doing well at home up until when he noted increasing erythema of the left lower extremity. He was seen that afternoon by his family practice provider. He was not started on any antibiotics at that time. She was told to keep an eye by his physician. He is encouraged to come to the emergency room if his erythema worsened. He notes earlier this morning the erythema worsened and leg pain increased significantly he began having fever and chills. Patient is and has no children. He lives with a roommate. He denies any recent upper respiratory symptoms, dyspnea or cough. He denies any nausea, vomiting or abdominal pain. He denies history of diabetes. He continues to smoke 1-2 packs per day, and also drinks alcohol in excess daily. Past Medical History Cardiac Medical History: Reports: Congestive Heart Failure, DVT, Myocardial Infarction, Hyperlipidema, Hypertension, Peripheral Vascular Disease, Pulmonary Embolism Pulmonary Medical History: Reports: Asthma, Bronchitis, Chronic Obstructive Pulmonary Disease (COPD), Pneumonia, Sleep Apnea Denies: Tuberculosis EENT Medical History: Reports: None Neurological Medical History: Reports: None Denies: Seizures Endocrine Medical History: Reports: None, Obesity Renal/ Medical History: Reports: None Malignancy Medical History: Reports: None GI Medical History: Reports: Gastroesophageal Reflux Disease, Hiatal Hernia Musculoskeltal Medical History: Reports: Other - Charcot foot on right Skin Medical History: Reports: None Psychiatric Medical History: Reports: None Denies: Depression Traumatic Medical History: Reports: None Hematology: Reports: None Infectious Medical History: Reports: Methicillin-Resistant Staph Aureus, Vancomycin-Resistant Enterococci - Recurrent cellulitis of right lower extremity Past Surgical History Past Surgical History: Reports: Cardiac Catheterization - stent x1, Cholecystectomy, Herniorrhaphy - mesh, Orthopedic Surgery - multiple back, Tonsillectomy, Vascular Surgery - filter placed, pt unsure where Denies: Appendectomy, Coronary Artery Bypass Graft, Gastric Bypass Surgery, Pacemaker Social History Smoking Status: Current Every Day Smoker Cigarettes Packs Per Day: 2 Number of Years Smokin Last Time Smoked: Today Frequency of Alcohol Use: Heavy - At times 6-8 beers per day Amount of Alcoholic Beverages Per Day: 6 pack beer with 2 large rum and cokes Last Alcohol Use: 04/21/17 Hx Recreational Drug Use: No Drugs: None Hx Prescription Drug Abuse: Yes - 11 years ago - Advance Directive Resuscitation Status: Full Code Family History Family History: COPD, Hypertension Parental Family History Reviewed: Yes Children Family History Reviewed: NA Sibling(s) Family History Reviewed.: Yes Medication/Allergy Allergies/Adverse Reactions: cephalexin monohydrate [From Keflex] Allergy (Intermediate, Verified 06/08/16 08 :54) codeine Allergy (Verified 06/08/16 08:54) morphine Allergy (Verified 06/08/16 08:54) Review of Systems Constitutional: PRESENT: chills, fever(s) Eyes: ABSENT: visual disturbances Ears: ABSENT: hearing changes Cardiovascular: ABSENT: chest pain, dyspnea on exertion, edema, orthropnea, palpitations Gastrointestinal: ABSENT: abdominal pain, constipation, diarrhea, hematemesis, hematochezia, nausea, vomiting Musculoskeletal: PRESENT: joint swelling Integumentary: PRESENT: erythema - left foot to above the knee, lesions, wounds Neurological: PRESENT: abnormal gait Psychiatric: ABSENT: anxiety, depression, homidical ideation, suicidal ideation Endocrine: ABSENT: cold intolerance, heat intolerance, polydipsia, polyuria Hematologic/Lymphatic: ABSENT: easy bleeding, easy bruising Physical Exam Vital Signs: Temp Pulse Resp BP Pulse Ox 98.6 F 92 18 103/60 96 04/22/17 11:15 04/22/17 11:15 04/22/17 11:15 04/22/17 11:15 04/22/17 11:15 General appearance: PRESENT: no acute distress, obese, well-developed, well- nourished Head exam: PRESENT: atraumatic Eye exam: PRESENT: conjunctiva pink, EOMI, PERRLA. ABSENT: scleral icterus Ear exam: PRESENT: normal external ear exam Mouth exam: PRESENT: moist, tongue midline Teeth exam: PRESENT: poor dentation Neck exam: ABSENT: carotid bruit, JVD, lymphadenopathy, thyromegaly Respiratory exam: PRESENT: clear to auscultation lui. ABSENT: rales, rhonchi, wheezes Cardiovascular exam: PRESENT: RRR. ABSENT: diastolic murmur, rubs, systolic murmur Pulses: PRESENT: normal carotid pulses, normal radial pulses Vascular exam: PRESENT: pallor GI/Abdominal exam: PRESENT: normal bowel sounds, soft. ABSENT: distended, guarding, mass, organolmegaly, rebound, tenderness Rectal exam: PRESENT: deferred Extremities exam: PRESENT: calf tenderness, tenderness - left lower leg foot to knee, other Musculoskeletal exam: PRESENT: deformity - right charcot foot Neurological exam: PRESENT: alert, awake, oriented to person, oriented to place , oriented to time, oriented to situation, CN II-XII grossly intact. ABSENT: motor sensory deficit Psychiatric exam: PRESENT: appropriate affect, normal mood. ABSENT: homicidal ideation, suicidal ideation Skin exam: PRESENT: erythema, warm, other - ulcerated wound left medial malleolus area Assessment & Plan - Diagnosis (1) Cellulitis of left anterior lower leg Is this a current diagnosis for this admission?: YesPlan: IV broad spectrum abx with MRSA, VRE coverage per history. Surgialist consult for left ankle wound. GAUDENCIO and venous duplex of both lower ext remities (2) Hypokalemia Is this a current diagnosis for this admission?: YesPlan: Replete and supplement as needed (3) Tobacco use disorder Is this a current diagnosis for this admission?: YesPlan: Nicotine transdermal. Counseled need to quit with pvd not to worsen (4) Lymphedema Is this a current diagnosis for this admission?: YesPlan: Elevate lower extremities, ambulate (5) Obesity, Class III, BMI 40-49.9 (morbid obesity) Is this a current diagnosis for this admission?: YesPlan: Counseled on need for weight loss (6) Peripheral vascular disease Is this a current diagnosis for this admission?: YesPlan: No recent ABIs . Bilateral lower extremities are joaquín in color and cool to the touch (7) Alcohol dependency Qualifiers: Substance use status: unspecified alcohol-induced disorder Qualified Code(s): F10.29 - Alcohol dependence with unspecified alcohol-induced disorder Is this a current diagnosis for this admission?: YesPlan: Thiamine, folic acid, ativan prn (8) CAD (coronary artery disease) Qualifiers: Coronary Disease-Associated Artery/Lesion type: [place] artery [place] vs. transplanted heart: [place] heart Associated angina: without angina Qualified Code(s): I25.10 - Atherosclerotic heart disease of [place] coronary artery without angina pectoris Is this a current diagnosis for this admission?: YesPlan: Continue home medications. Chest pain free (9) COPD (chronic obstructive pulmonary disease) Qualifiers: COPD type: unspecified COPD Qualified Code(s): J44.9 - Chronic obstructive pulmonary disease, unspecified Is this a current diagnosis for this admission?: YesPlan: Continue inhalers. 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 He is on Pradaxa (11) GERD (gastroesophageal reflux disease) Qualifiers: Esophagitis presence: esophagitis presence not specified Qualified Code(s): K21.9 - Gastro-esophageal reflux disease without esophagitis Is this a current diagnosis for this admission?: YesPlan: Continue PPI. H2 eliseo (12) History of DVT (deep vein thrombosis) Is this a current diagnosis for this admission?: Yes (13) RONIT (obstructive sleep apnea) Is this a current diagnosis for this admission?: YesPlan: CPAP at HS - Time Time Spent: 50 to 70 Minutes Critical Time spent with patient: 35 or more minutes Smoking Cessation Education: 3 to 10 minutes Medications reviewed and adjusted accordingly: Yes
[2017-04-22] MEDS ORDERED: ENOXAPARIN SODIUM INJ 30 MG/0.3 ML DISP.SYRIN SUBCUT ONE (15:00)
[2017-04-22] MEDS: MORPHINE SULFATE 10 MG/ML INJ IV PRN ×3 (15:06→23:54)
[2017-04-22] MEDS: IPRATROPIUM/ALBUTEROL 0.5-2.5 MG/3 ML AMPUL NEB PRN (15:20)
[2017-04-22] MEDS ORDERED: NICOTINE 21 MG/24 HR PATCH.TD24 TD ONE (15:30)
[2017-04-22] MEDS: CLINDAMYCIN 600 MG/D5W RTU 50 ML IV SCH ×2 (16:09→22:19)
[2017-04-22] MEDS: DOCUSATE SODIUM 100 MG CAPSULE PO SCH (17:25)
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
[2017-04-22] MEDS ORDERED: DOCUSATE SODIUM 100 MG/10 ML UDC PO SCH (18:00)
[2017-04-22] MEDS: FAMOTIDINE 20 MG TABLET PO SCH (22:19)
[2017-04-22] MEDS: OXYCODONE-ACETAMINOPHEN 5-325 MG TABLET PO PRN (22:19)
[2017-04-23] MEDS: CLINDAMYCIN 600 MG/D5W RTU 50 ML IV SCH ×3 (05:17→22:13)
[2017-04-23] MEDS: MORPHINE SULFATE 10 MG/ML INJ IV PRN ×5 (05:17→22:13)
[2017-04-23 05:18] LABS: ABSOLUTE EOSINOPHILS # (AUTO) 0.2 10^3/uL (0.0-0.6); ABSOLUTE LYMPHOCYTES (AUTO) 3.6 10^3/uL (0.5-4.7); ABSOLUTE MONOCYTES (AUTO) 1.2 10^3/uL (0.1-1.4); ABSOLUTE NEUT (AUTO) 7.6 10^3/uL (1.7-8.2); BASOPHILS % (AUTO) 0.1 % (0-2); EOSINOPHILS % (AUTO) 1.8 % (0-6); HEMATOCRIT 35.6 % (37.9-51.0); HEMOGLOBIN 11.9 g/dL (13.5-17.0); HGB HCT DIFFERENCE 0.1; LYMPHOCYTES % (AUTO) 28.8 % (13-45); MEAN CORPUSCULAR HEMOGLOBIN 32.2 pg (27.0-33.4); MEAN CORPUSCULAR HGB CONC 33.3 g/dL (32.0-36.0); MEAN CORPUSCULAR VOLUME 97 fl (80-97); MONOCYTES % (AUTO) 9.6 % (3-13); RED BLOOD COUNT 3.69 10^6/uL (4.35-5.55); SEGMENTED NEUTROPHILS % (AUTO) 59.7 % (42-78); WHITE BLOOD COUNT 12.7 10^3/uL (4.0-10.5)
[2017-04-23 05:53] LABS: ANION GAP 6 (5-19); BLOOD UREA NITROGEN 8 mg/dL (7-20); CALCIUM 8.4 mg/dL (8.4-10.2); CARBON DIOXIDE 30 mmol/L (22-30); CHLORIDE 100 mmol/L (98-107); CREATININE RESULT 0.63 mg/dL (0.52-1.25); GLUCOSE 98 mg/dL (75-110); MAGNESIUM 1.9 mg/dL (1.6-2.3); SODIUM 136.3 mmol/L (137-145)
[2017-04-23] MEDS: IPRATROPIUM/ALBUTEROL 0.5-2.5 MG/3 ML AMPUL NEB PRN ×2 (06:39→20:24)
[2017-04-23] MEDS ORDERED: POTASSIUM CHLORIDE 10 MEQ TABLET.SA PO ONE (07:00)
[2017-04-23] MEDS ORDERED: (PENDING PHARMACY ID) (Mometasone Furoate [Nasonex] 1 SPRAY) NAREB PRN (07:19)
[2017-04-23] MEDS ORDERED: VANCOMYCIN HCL 0 MG in DEXTROSE 5%-WATER 250 ML IV NR (07:30)
[2017-04-23] MEDS ORDERED: ENOXAPARIN SODIUM INJ 30 MG/0.3 ML DISP.SYRIN SUBCUT SCH (08:00)
[2017-04-23] MEDS: OXYCODONE-ACETAMINOPHEN 5-325 MG TABLET PO PRN (08:33)
[2017-04-23] MEDS: FLUTICASONE/SALMETEROL DISKUS 250-50 MCG/DOSE IH SCH ×2 (09:46→22:18)
[2017-04-23] MEDS: TIOTROPIUM BROMIDE DPI 5 CAP/KIT (18 MCG/CAP) IH SCH (09:47)
[2017-04-23] MEDS: NICOTINE 21 MG/24 HR PATCH.TD24 TD SCH (09:48)
[2017-04-23] MEDS: VANCOMYCIN HCL 1,500 MG in DEXTROSE 5%-WATER 250 ML IV SCH ×2 (09:48→17:16)
[2017-04-23] MEDS: THIAMINE HCL 100 MG TABLET PO SCH (09:49)
[2017-04-23] MEDS: FUROSEMIDE 20 MG TABLET PO SCH ×2 (09:49→22:13)
[2017-04-23] MEDS: FAMOTIDINE 20 MG TABLET PO SCH ×2 (09:50→22:13)
[2017-04-23] MEDS: LORATADINE 10 MG TABLET PO SCH (09:50)
[2017-04-23] MEDS: MULTIVITAMIN TABLET PO SCH (09:50)
[2017-04-23] MEDS: DOCUSATE SODIUM 100 MG CAPSULE PO SCH ×2 (09:50→17:16)
[2017-04-23] MEDS: RIVAROXABAN 10 MG TABLET PO SCH (09:51)
[2017-04-23] MEDS: FLUTICASONE NASAL SPRAY 50 MCG/SPRY 120 SPRAY/16 GM NAREB PRN (09:56)
[2017-04-23] MEDS ORDERED: (PENDING PHARMACY ID) (Tiotropium Bromide [Spiriva Respimat] 4 GM) IH SCH (10:00)
--- NOTE | 2017-04-23 10:28 | PDOC PROGRESS REPORT ---
Subjective Progress Note for:: 04/23/17 Subjective:: Patient seen on morning rounds. He is resting comfortably in bed. He states left lower leg feels better but still hurts. Pain is relieved somewhat with morphine, but " dilaudid works better.." . Erythema and swelling is improved. He also complains of hiccups overnight. He denies any shortness of breath or dyspnea. He denies any nausea, abdominal pain of diarrhea. He denies any other complaints other the left leg pain. Remaining review of systems is negative. Physical Exam Vital Signs: Temp Pulse Resp BP Pulse Ox 98.5 F 85 24 H 111/62 90 L 04/23/17 07:23 04/23/17 07:23 04/23/17 07:23 04/23/17 07:23 04/23/17 07:23 Intake & Output 04/22/17 04/23/17 04/24/17 06:59 06:59 06:59 Intake Total 320 Output Total 1350 Balance -1030 Weight 116.3 kg General appearance: PRESENT: no acute distress, obese, well-developed, well- nourished Head exam: PRESENT: atraumatic, normocephalic Eye exam: PRESENT: conjunctiva pink, EOMI, PERRLA. ABSENT: scleral icterus Ear exam: PRESENT: normal external ear exam Mouth exam: PRESENT: moist, tongue midline Neck exam: ABSENT: carotid bruit, JVD, lymphadenopathy, thyromegaly Respiratory exam: PRESENT: clear to auscultation lui. ABSENT: rales, rhonchi, wheezes Cardiovascular exam: PRESENT: RRR. ABSENT: diastolic murmur, rubs, systolic murmur Pulses: PRESENT: normal dorsalis pedis pul Vascular exam: PRESENT: normal capillary refill GI/Abdominal exam: PRESENT: normal bowel sounds, soft. ABSENT: distended, guarding, mass, organolmegaly, rebound, tenderness Rectal exam: PRESENT: deferred Extremities exam: PRESENT: full ROM, other - +3 lower extremity lymphedema, right charcot foot. ABSENT: calf tenderness, clubbing, pedal edema Neurological exam: PRESENT: alert, awake, oriented to person, oriented to place , oriented to time, oriented to situation, CN II-XII grossly intact. ABSENT: motor sensory deficit Psychiatric exam: PRESENT: appropriate affect, normal mood. ABSENT: homicidal ideation, suicidal ideation Skin exam: PRESENT: dry - left inner malleoulus area with ulcerated dry 3cm wound, erythema, warm, other Results Laboratory Results: 04/23/17 04:53 04/23/17 04:53 04/23/17 04/23/17 04:53 04:53 WBC 12.7 H RBC 3.69 L Hgb 11.9 L Hct 35.6 L MCV 97 MCH 32.2 MCHC 33.3 RDW 17.0 H Plt Count 189 Seg Neutrophils % 59.7 Lymphocytes % 28.8 Monocytes % 9.6 Eosinophils % 1.8 Basophils % 0.1 Absolute Neutrophils 7.6 Absolute Lymphocytes 3.6 Absolute Monocytes 1.2 Absolute Eosinophils 0.2 Absolute Basophils 0.0 Sodium 136.3 L Potassium 3.0 L* Chloride 100 Carbon Dioxide 30 Anion Gap 6 BUN 8 Creatinine 0.63 Est GFR ( Amer) > 60 Est GFR (Non-Af Amer) > 60 Glucose 98 Calcium 8.4 Magnesium 1.9 Assessment & Plan - Diagnosis (1) Cellulitis of left anterior lower leg Is this a current diagnosis for this admission?: YesPlan: IV broad spectrum abx with MRSA, VRE coverage per history GAUDENCIO and venous duplex of both lower extremities in the am (2) Hypokalemia Is this a current diagnosis for this admission?: YesPlan: Replete and supplement as needed (3) Tobacco use disorder Is this a current diagnosis for this admission?: YesPlan: Nicotine transdermal. Counseled need to quit with pvd not to worsen (4) Lymphedema Is this a current diagnosis for this admission?: YesPlan: Elevate lower extremities, ambulate (5) Obesity, Class III, BMI 40-49.9 (morbid obesity) Is this a current diagnosis for this admission?: YesPlan: Counseled on need for weight loss (6) Peripheral vascular disease Is this a current diagnosis for this admission?: YesPlan: No recent ABIs . Bilateral lower extremities are joaquín in color and cool to the touch (7) Alcohol dependency Qualifiers: Substance use status: unspecified alcohol-induced disorder Qualified Code(s): F10.29 - Alcohol dependence with unspecified alcohol-induced disorder Is this a current diagnosis for this admission?: YesPlan: Thiamine, folic acid, ativan prn (8) CAD (coronary artery disease) Qualifiers: Coronary Disease-Associated Artery/Lesion type: [place] artery [place] vs. transplanted heart: [place] heart Associated angina: without angina Qualified Code(s): I25.10 - Atherosclerotic heart disease of [place] coronary artery without angina pectoris Is this a current diagnosis for this admission?: YesPlan: Continue home medications. Chest pain free (9) COPD (chronic obstructive pulmonary disease) Qualifiers: COPD type: unspecified COPD Qualified Code(s): J44.9 - Chronic obstructive pulmonary disease, unspecified Is this a current diagnosis for this admission?: YesPlan: Continue inhalers. Nebulizers prn (10) detention current use of anticoagulant therapy Is this a current diagnosis for this admission?: YesPlan: INR elevated secondary to etoh abuse. He is on Pradaxa (11) GERD (gastroesophageal reflux disease) Qualifiers: Esophagitis presence: esophagitis presence not specified Qualified Code(s): K21.9 - Gastro-esophageal reflux disease without esophagitis Is this a current diagnosis for this admission?: YesPlan: Continue PPI. H2 eliseo (12) History of DVT (deep vein thrombosis) Is this a current diagnosis for this admission?: YesPlan: On Xarelto (13) RONIT (obstructive sleep apnea) Is this a current diagnosis for this admission?: YesPlan: CPAP at HS - Time Time Spent with patient: 25-34 minutes Critical Time spent with patient: 15-24 minutes Smoking Cessation Education: 3 to 10 minutes Medications reviewed and adjusted accordingly: Yes
--- NOTE | 2017-04-23 10:43 | PROGRESS NOTE E ---
Progress Note NAME: ANALY NEVAREZ : 1955 AGE: 61Y DATE: 04/23/2017 ROOM: 531 SUBJECTIVE: The cellulitis in the left lower leg appears to be improving. The swelling is starting to come down with some wrinkling of the skin though it is still quite red and tender. PLAN: Continue with the present regimen. DICTATING PHYSICIAN: MONSTER WAITE M.D. [id number] PHY#: [id number] ID: [id number] JOB#: [id number] ACCT: [id number] cc: >
[2017-04-23] MEDS: HYDROXYZINE HCL 10 MG TABLET PO SCH ×2 (14:00→22:18)
[2017-04-23] MEDS: PREGABALIN 75 MG CAPSULE PO SCH ×2 (14:00→22:13)
[2017-04-23] MEDS: POTASSIUM CHLORIDE 10 MEQ TABLET.SA PO SCH (14:01)
[2017-04-23] MEDS ORDERED: (PENDING PHARMACY ID) (Trazodone Hcl [Desyrel] 300 MG) PO SCH (22:00)
[2017-04-23] MEDS: MONTELUKAST SODIUM 10 MG TABLET PO SCH (22:13)
[2017-04-23] MEDS: TRAZODONE HCL 50 MG TABLET PO SCH (22:13)
[2017-04-24] MEDS: VANCOMYCIN HCL 1,500 MG in DEXTROSE 5%-WATER 250 ML IV SCH ×2 (02:39→11:20)
[2017-04-24] MEDS: CLINDAMYCIN 600 MG/D5W RTU 50 ML IV SCH ×3 (06:22→22:51)
[2017-04-24] MEDS: HYDROXYZINE HCL 10 MG TABLET PO SCH ×3 (06:22→22:52)
[2017-04-24] MEDS: PREGABALIN 75 MG CAPSULE PO SCH ×3 (06:22→22:51)
[2017-04-24] MEDS: MORPHINE SULFATE 10 MG/ML INJ IV PRN ×4 (06:28→23:44)
[2017-04-24 06:37] LABS: ABSOLUTE BASOPHILS # (AUTO) 0.1 10^3/uL (0.0-0.2); ABSOLUTE EOSINOPHILS # (AUTO) 0.3 10^3/uL (0.0-0.6); ABSOLUTE LYMPHOCYTES (AUTO) 3.2 10^3/uL (0.5-4.7); ABSOLUTE MONOCYTES (AUTO) 1.1 10^3/uL (0.1-1.4); ABSOLUTE NEUT (AUTO) 5.6 10^3/uL (1.7-8.2); EOSINOPHILS % (AUTO) 2.6 % (0-6); HEMATOCRIT 33.3 % (37.9-51.0); HEMOGLOBIN 11.3 g/dL (13.5-17.0); HGB HCT DIFFERENCE 0.6; LYMPHOCYTES % (AUTO) 31.6 % (13-45); MEAN CORPUSCULAR HEMOGLOBIN 32.5 pg (27.0-33.4); MEAN CORPUSCULAR HGB CONC 33.9 g/dL (32.0-36.0); MEAN CORPUSCULAR VOLUME 96 fl (80-97); MONOCYTES % (AUTO) 10.6 % (3-13); RED BLOOD COUNT 3.47 10^6/uL (4.35-5.55); RED CELL DISTRIBUTION WIDTH 16.7 % (11.5-14.0); SEGMENTED NEUTROPHILS % (AUTO) 54.2 % (42-78); WHITE BLOOD COUNT 10.2 10^3/uL (4.0-10.5)
[2017-04-24 06:50] LABS: PROTHROMBIN TIME 16.9 SEC (11.4-15.4)
[2017-04-24 06:52] LABS: ALBUMIN 2.4 g/dL (3.5-5.0); ANION GAP 6 (5-19); CARBON DIOXIDE 31 mmol/L (22-30); CHLORIDE 104 mmol/L (98-107); CREATININE RESULT 0.61 mg/dL (0.52-1.25); GLUCOSE 92 mg/dL (75-110); POTASSIUM 3.3 mmol/L (3.6-5.0); SODIUM 141.3 mmol/L (137-145); TOTAL PROTEIN 6.2 g/dL (6.3-8.2)
[2017-04-24 06:54] LABS: ALANINE AMINOTRANSFERASE 26 U/L (21-72); ALKALINE PHOSPHATASE 77 U/L (38-126); ASPARTATE AMINO TRANSFERASE 30 U/L (17-59); BILIRUBIN,DIRECT 0.4 mg/dL (0.0-0.4); BILIRUBIN,TOTAL 0.6 mg/dL (0.2-1.3); BLOOD UREA NITROGEN 5 mg/dL (7-20); CALCIUM 8.1 mg/dL (8.4-10.2)
--- NOTE | 2017-04-24 09:03 | PDOC PROGRESS REPORT ---
Subjective Progress Note for:: 04/24/17 Subjective:: Patient still complaining of leg pain, and redness on his thighs, but improved. Physical Exam Vital Signs: Temp Pulse Resp BP Pulse Ox 98.0 F 86 18 90/48 L 96 04/24/17 08:00 04/24/17 08:00 04/24/17 08:00 04/24/17 08:00 04/24/17 08:00 Intake & Output 04/23/17 04/24/17 04/25/17 06:59 06:59 06:59 Intake Total 320 2015 Output Total 1350 2800 Balance -1030 -784 Weight 116.3 kg 118.4 kg General appearance: PRESENT: no acute distress Extremities exam: PRESENT: other - Lower extremities examined; no open wounds, chronic lichenification around the feet and ankles. Mild to moderate cellulitis of both knees. No blisters, no active drainage Results Laboratory Results: 04/24/17 05:43 04/24/17 05:43 04/24/17 04/24/17 05:43 05:43 WBC 10.2 RBC 3.47 L Hgb 11.3 L Hct 33.3 L MCV 96 MCH 32.5 MCHC 33.9 RDW 16.7 H Plt Count 234 Seg Neutrophils % 54.2 Lymphocytes % 31.6 Monocytes % 10.6 Eosinophils % 2.6 Basophils % 1.0 Absolute Neutrophils 5.6 Absolute Lymphocytes 3.2 Absolute Monocytes 1.1 Absolute Eosinophils 0.3 Absolute Basophils 0.1 Sodium 141.3 Potassium 3.3 L Chloride 104 Carbon Dioxide 31 H Anion Gap 6 BUN 5 L Creatinine 0.61 Est GFR ( Amer) > 60 Est GFR (Non-Af Amer) > 60 Glucose 92 Calcium 8.1 L Total Bilirubin 0.6 AST 30 ALT 26 Alkaline Phosphatase 77 Total Protein 6.2 L Albumin 2.4 L Assessment & Plan - Diagnosis (1) Bilateral cellulitis of lower leg Is this a current diagnosis for this admission?: YesPlan: 1. Lower extremity cellulitis improved; nothing operative to debride. 2. Patient would benefit from pneumatic compression garments. He states several years ago he looked into this but his insurance company did not cover it. I would suggest the patient follow up with the [facility] wound center and have a navigator assist this patient in pursuing home pneumatic compression garment therapy. 3. We will sign off for now; reconsult if needed.
[2017-04-24] MEDS: FAMOTIDINE 20 MG TABLET PO SCH ×2 (09:29→22:52)
[2017-04-24] MEDS: THIAMINE HCL 100 MG TABLET PO SCH (09:29)
[2017-04-24] MEDS: MULTIVITAMIN TABLET PO SCH (09:29)
[2017-04-24] MEDS: RIVAROXABAN 10 MG TABLET PO SCH (09:29)
[2017-04-24] MEDS: DOCUSATE SODIUM 100 MG CAPSULE PO SCH ×2 (09:30→17:07)
[2017-04-24] MEDS: FLUTICASONE/SALMETEROL DISKUS 250-50 MCG/DOSE IH SCH ×2 (09:30→22:52)
[2017-04-24] MEDS: LORATADINE 10 MG TABLET PO SCH (09:30)
[2017-04-24] MEDS: NICOTINE 21 MG/24 HR PATCH.TD24 TD SCH (09:31)
[2017-04-24] MEDS: TIOTROPIUM BROMIDE DPI 5 CAP/KIT (18 MCG/CAP) IH SCH (09:31)
[2017-04-24] MEDS: FUROSEMIDE 20 MG TABLET PO SCH ×2 (11:28→22:52)
[2017-04-24] MEDS: IPRATROPIUM/ALBUTEROL 0.5-2.5 MG/3 ML AMPUL NEB PRN ×2 (12:09→22:45)
[2017-04-24] MEDS: POTASSIUM CHLORIDE 10 MEQ TABLET.SA PO SCH (13:32)
--- NOTE | 2017-04-24 15:38 | PDOC PROGRESS REPORT ---
Subjective Progress Note for:: 04/24/17 Subjective:: Patient seen on morning rounds. He is resting comfortably in bed. He states left lower leg feels better but still hurts but improved from admission. Erythema and swelling is markedly improved. He denies any shortness of breath or dyspnea. He denies any nausea, abdominal pain of diarrhea. He denies any other complaints other the left leg pain. Remaining review of systems is negative. Physical Exam Vital Signs: Temp Pulse Resp BP Pulse Ox 98.0 F 92 20 110/70 94 04/24/17 08:00 04/24/17 14:00 04/24/17 12:09 04/24/17 11:34 04/24/17 12:09 Intake & Output 04/23/17 04/24/17 04/25/17 06:59 06:59 06:59 Intake Total 320 2016 Output Total 1350 2800 Balance -1030 -784 Weight 116.3 kg 118.4 kg General appearance: PRESENT: no acute distress, well-developed, well-nourished Head exam: PRESENT: atraumatic, normocephalic Eye exam: PRESENT: conjunctiva pink, EOMI, PERRLA. ABSENT: scleral icterus Ear exam: PRESENT: normal external ear exam Mouth exam: PRESENT: moist, tongue midline Neck exam: ABSENT: carotid bruit, JVD, lymphadenopathy, thyromegaly Respiratory exam: PRESENT: clear to auscultation lui. ABSENT: rales, rhonchi, wheezes Cardiovascular exam: PRESENT: RRR. ABSENT: diastolic murmur, rubs, systolic murmur Pulses: PRESENT: normal carotid pulses, normal radial pulses Vascular exam: PRESENT: normal capillary refill GI/Abdominal exam: PRESENT: normal bowel sounds, soft. ABSENT: distended, guarding, mass, organolmegaly, rebound, tenderness Rectal exam: PRESENT: deferred Extremities exam: PRESENT: calf tenderness, +2 edema - Bilateral lower legs from lymphedema. swelling in left lower leg has almost resolved Musculoskeletal exam: PRESENT: ambulatory, tenderness Neurological exam: PRESENT: alert, awake, oriented to person, oriented to place , oriented to time, oriented to situation, CN II-XII grossly intact. ABSENT: motor sensory deficit Psychiatric exam: PRESENT: appropriate affect, normal mood. ABSENT: homicidal ideation, suicidal ideation Skin exam: PRESENT: dry, intact, warm, other - chronic lichenification around left inner ankle wound,. ABSENT: cyanosis, rash Results Laboratory Results: 04/24/17 05:43 04/24/17 05:43 04/24/17 04/24/17 05:43 05:43 WBC 10.2 RBC 3.47 L Hgb 11.3 L Hct 33.3 L MCV 96 MCH 32.5 MCHC 33.9 RDW 16.7 H Plt Count 234 Seg Neutrophils % 54.2 Lymphocytes % 31.6 Monocytes % 10.6 Eosinophils % 2.6 Basophils % 1.0 Absolute Neutrophils 5.6 Absolute Lymphocytes 3.2 Absolute Monocytes 1.1 Absolute Eosinophils 0.3 Absolute Basophils 0.1 Sodium 141.3 Potassium 3.3 L Chloride 104 Carbon Dioxide 31 H Anion Gap 6 BUN 5 L Creatinine 0.61 Est GFR ( Amer) > 60 Est GFR (Non-Af Amer) > 60 Glucose 92 Calcium 8.1 L Total Bilirubin 0.6 AST 30 ALT 26 Alkaline Phosphatase 77 Total Protein 6.2 L Albumin 2.4 L Assessment & Plan - Diagnosis (1) Cellulitis of left anterior lower leg Is this a current diagnosis for this admission?: YesPlan: Much improved today. Will de-escalate Antibiotics. We will transition to oral therapy tomorrow and probable discharge. (2) Hypokalemia Is this a current diagnosis for this admission?: YesPlan: Replete and supplement as needed (3) Tobacco use disorder Is this a current diagnosis for this admission?: YesPlan: Nicotine transdermal. Counseled need to quit with pvd not to worsen (4) Lymphedema Is this a current diagnosis for this admission?: YesPlan: Elevate lower extremities, ambulate, pneumatic compression sleeves and or support stockings post discharge (5) Obesity, Class III, BMI 40-49.9 (morbid obesity) Is this a current diagnosis for this admission?: YesPlan: Counseled on need for weight loss (6) Peripheral vascular disease Is this a current diagnosis for this admission?: YesPlan: No recent ABIs . Bilateral lower extremities are joaquín in color and cool to the touch (7) Alcohol dependency Qualifiers: Substance use status: unspecified alcohol-induced disorder Qualified Code(s): F10.29 - Alcohol dependence with unspecified alcohol-induced disorder Is this a current diagnosis for this admission?: YesPlan: Thiamine, folic acid, ativan prn (8) CAD (coronary artery disease) Qualifiers: Coronary Disease-Associated Artery/Lesion type: [place] artery [place] vs. transplanted heart: [place] heart Associated angina: without angina Qualified Code(s): I25.10 - Atherosclerotic heart disease of [place] coronary artery without angina pectoris Is this a current diagnosis for this admission?: YesPlan: Continue home medications. Chest pain free (9) COPD (chronic obstructive pulmonary disease) Qualifiers: COPD type: unspecified COPD Qualified Code(s): J44.9 - Chronic obstructive pulmonary disease, unspecified Is this a current diagnosis for this admission?: YesPlan: Continue inhalers. 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 He is on Pradaxa (11) GERD (gastroesophageal reflux disease) Qualifiers: Esophagitis presence: esophagitis presence not specified Qualified Code(s): K21.9 - Gastro-esophageal reflux disease without esophagitis Is this a current diagnosis for this admission?: YesPlan: Continue PPI. H2 eliseo (12) History of DVT (deep vein thrombosis) Is this a current diagnosis for this admission?: YesPlan: On Xarelto (13) RONIT (obstructive sleep apnea) Is this a current diagnosis for this admission?: YesPlan: CPAP at HS - Time Time Spent with patient: 25-34 minutes Critical Time spent with patient: 15-24 minutes Smoking Cessation Education: 3 to 10 minutes Medications reviewed and adjusted accordingly: Yes Anticipated discharge: Home with Homehealth Within: within 24 hours
[2017-04-24] MEDS ORDERED: VANCOMYCIN HCL 1,250 MG in DEXTROSE 5%-WATER 250 ML IV SCH (18:00)
[2017-04-24] MEDS: MONTELUKAST SODIUM 10 MG TABLET PO SCH (22:51)
[2017-04-24] MEDS: TRAZODONE HCL 50 MG TABLET PO SCH (22:51)
[2017-04-25] MEDS: CLINDAMYCIN 600 MG/D5W RTU 50 ML IV SCH ×3 (05:24→21:59)
[2017-04-25] MEDS: HYDROXYZINE HCL 10 MG TABLET PO SCH ×3 (05:24→21:59)
[2017-04-25] MEDS: PREGABALIN 75 MG CAPSULE PO SCH ×3 (05:24→21:59)
[2017-04-25] MEDS: IPRATROPIUM/ALBUTEROL 0.5-2.5 MG/3 ML AMPUL NEB PRN (08:19)
[2017-04-25] MEDS ORDERED: ALBUTEROL SULFATE 0.083% NEB 2.5 MG/3 ML AMPUL NEB PRN (08:21)
[2017-04-25] MEDS ORDERED: LORAZEPAM 1 MG TABLET PO PRN (08:22)
[2017-04-25] MEDS ORDERED: ONDANSETRON 4 MG TAB.RAPDIS PO PRN (08:23)
[2017-04-25] MEDS: OXYCODONE-ACETAMINOPHEN 5-325 MG TABLET PO PRN ×3 (08:47→18:52)
[2017-04-25] MEDS: FUROSEMIDE 20 MG TABLET PO SCH ×2 (09:02→21:59)
[2017-04-25] MEDS: NICOTINE 21 MG/24 HR PATCH.TD24 TD SCH (09:02)
[2017-04-25] MEDS: POLYETHYLENE GLYCOL 3350 POWDER 17 GM/1 PACKET PO SCH (09:02)
[2017-04-25] MEDS: LORATADINE 10 MG TABLET PO SCH (09:03)
[2017-04-25] MEDS: MULTIVITAMIN TABLET PO SCH (09:03)
[2017-04-25] MEDS: THIAMINE HCL 100 MG TABLET PO SCH (09:03)
[2017-04-25] MEDS: FAMOTIDINE 20 MG TABLET PO SCH ×2 (09:03→21:59)
[2017-04-25] MEDS: DOCUSATE SODIUM 100 MG CAPSULE PO SCH ×2 (09:03→17:02)
--- NOTE | 2017-04-25 09:03 | PROGRESS NOTE E ---
Progress Note NAME: ANALY NEVAREZ : 1955 AGE: 61Y DATE: 04/25/2017 ROOM: 531 SUBJECTIVE: The patient is lying in bed. He states that he is a little dyspneic and actually wants a breathing treatment. The patient states that he is not much different than he yesterday, but feels better than when he came in. He denies any nausea, vomiting, diarrhea, dizziness, chest pain. No fevers or chills. He does admit to being somewhat anxious. The patient does not voice any other concerns at this time. REVIEW OF SYSTEMS: The rest of review of systems is negative. MEDICATIONS: Medications have been reviewed. OBJECTIVE: GENERAL: The patient is a 61-year-old male who is awake, alert, he is oriented to person, place, time and situation. He is verbal, conversational, and does not appear to be in acute distress. VITAL SIGNS: As follows: Temperature 98.1, pulse 84, respirations 19, blood pressure 119/65, oxygen saturation is 95% on 3L nasal cannula. SKIN: Warm and dry. No rash. Not diaphoretic. HEENT: Pupils are equal, round and reactive to light and accommodation. Conjunctivae are pink. There is no JVD. CARDIOVASCULAR SYSTEM: Heart is regular. There is no murmur or rub. CHEST: Diminished, but clear, symmetrical. ABDOMEN: Soft, nontender, nondistended. BACK: No CVA tenderness or sacral edema. EXTREMITIES: No clubbing. The patient does have chronic changes of redness, erythema noted but does appear improved in comparison to yesterday giving the patient's markings. PSYCHIATRIC: Appropriate affect, pleasant mood. DIAGNOSTICS: 1. Laboratory values are as follows: a. Hematology obtained on 04/24/2017: WBC 10.2, hemoglobin 11.3, hematocrit 33.3, platelet count of 234,000. b. Chemistry obtained on 04/24/2017: Sodium 141, potassium 4.1, chloride 104, carbon dioxide 31, BUN 5, creatinine 0.61, glucose 92, calcium 8.1. IMPRESSION AND PLAN: 1. CELLULITIS OF THE BILATERAL LOWER EXTREMITIES. Will continue current antibiotic coverage. Will add probiotic therapy as well. The patient feels he needs another day. 2. HYPOKALEMIA. This was replenished and has improved. 3. TOBACCO DEPENDENCY. Spent 3 minutes discussing smoking cessation, education. The patient declines any pharmacologic intervention at this time. 4. LYMPHEDEMA. The patient is to keep his extremities elevated when possible. Will consult physical therapy for ambulation. 5. OBESITY. The patient has been counseled about weight loss. 6. PERIPHERAL VASCULAR DISEASE. Currently awaiting Dopplers. 7. ALCOHOL DEPENDENCY. Will continue B vitamins and p.r.n. Ativan. 8. CORONARY ARTERY DISEASE. Will continue home medications. The patient is chest pain free. 9. CHRONIC OBSTRUCTIVE PULMONARY DISEASE. Will continue inhalers and nebulizers. 10. LONG-TERM USE OF ANTICOAGULATION THERAPY. Will continue home medications. 11. GERD. Will continue H2 receptor eliseo. 12. HISTORY OF DVT. The patient is on Xarelto. 13. OBSTRUCTIVE SLEEP APNEA. Will continue CPAP at night. DISPOSITION: The patient is a FULL CODE. Pending physical therapy symptomatology and diagnostic findings, we will re-evaluate in the a.m. for discharge. The patient can be downgraded to a medical bed. TIME SPENT: Time spent on this follow up including assessment, plan, physical examination, patient education was 25 minutes. DICTATING PHYSICIAN: LYNDA OCONNELL NP [id number] PHY#: [id number] ID: [id number] JOB#: [id number] ACCT: [id number] cc: >
[2017-04-25] MEDS: RIVAROXABAN 10 MG TABLET PO SCH (09:04)
[2017-04-25] MEDS: FLUTICASONE/SALMETEROL DISKUS 250-50 MCG/DOSE IH SCH ×2 (09:06→21:59)
[2017-04-25] MEDS: LACTOBACILLUS ACIDOPHILUS 250 MG TAB PO SCH ×2 (09:06→17:03)
[2017-04-25] MEDS: FLUTICASONE NASAL SPRAY 50 MCG/SPRY 120 SPRAY/16 GM NAREB PRN (09:07)
[2017-04-25] MEDS: TIOTROPIUM BROMIDE DPI 5 CAP/KIT (18 MCG/CAP) IH SCH (09:07)
[2017-04-25] MEDS: POTASSIUM CHLORIDE 10 MEQ TABLET.SA PO SCH (14:45)
--- NOTE | 2017-04-25 19:48 | XCELERA REPORT ---
[address] [address] Lower Extremity Venous Evaluation Name: ANALY NEVAREZ Age: 61 yrs Gender: Male : 1955 Patient Status: Inpatient Patient Location: 5\S\531\S\A Study Date: 04/25/2017 09:33 AM Procedure: Color flow and duplex imaging bilaterally of the veins of the lower extremities as well as the Common Femoral veins. Reason For Study: BLE swelling Ordering Physician: FRAN DAMON Performed By: Melissa Baker Right Sided Venous Evaluation Normal vessel filling wall to wall, compression and augmentation as well as Colour flow down to the infrageniculate veins. Left Sided Venous Evaluation Normal vessel filling wall to wall, compression and augmentation as well as Colour flow down to the infrageniculate veins. Interpretation Summary No duplex evidence of DVT or obstruction in the bilateral lower extremities. : FRAN DAMON > Aly Cruz
--- NOTE | 2017-04-25 19:58 | XCELERA REPORT ---
[address] [address] Lower Extremity Arterial Evaluation Name: ANAYL NEVAREZ Age: 61 yrs Gender: Male : 1955 Patient Status: Inpatient Patient Location: 5\S\531\S\A Study Date: 04/25/2017 09:28 AM Procedure: A color flow and duplex scan of the lower extremity arteries was performed bilaterally with velocity and waveform anaylsis. Reason For Study: Patient with cellulitis bilateral lymphedema Ordering Physician: FRAN DAMON Performed By: Melissa Baker Measurements and Calculations Right Left OUTSIDE MEDICAL SALES REPRESENTATIVE PSV 187.7 157.8 cm/sec Prox PFA PSV 84.4 -118.0 cm/sec Prox SFA PSV 183.9 169.4 cm/sec Mid SFA PSV -91.7 -126.3 cm/sec Dist SFA PSV -158.5 -165.5 cm/sec Prox Pop A PSV 113.8 152.9 cm/sec Dist RAMON PSV 45.3 82.0 cm/sec Dist PHLEBOTOMY TECHNOLOGIST PSV 80.5 104.6 cm/sec Yakov Pedis PSV 88.0 89.6 cm/sec Right Side Arterial Evaluation Normal velocity and biphasic waveforms, mild broadening noted from the Common Femoral artery to the infrageniculate vessels. 0-19% stenosis at the Aorta Iliac segment. Ankle Brachial index was not done. Left Side Arterial Evaluation Normal velocity and biphasic waveforms, mild broadening noted from the Common Femoral artery to the infrageniculate vessels. 0-19% stenosis at the Aorta Iliac segment. Ankle Brachial index was not done. Interpretation Summary Mild hemodynamically significant lesions in the bilateral lower extremities, on duplex imaging, at rest. : FRAN DAMON > Aly Cruz
[2017-04-25] MEDS: MONTELUKAST SODIUM 10 MG TABLET PO SCH (21:59)
[2017-04-25] MEDS: TRAZODONE HCL 50 MG TABLET PO SCH (21:59)
[2017-04-26] MEDS: HYDROXYZINE HCL 10 MG TABLET PO SCH (06:08)
[2017-04-26] MEDS: PREGABALIN 75 MG CAPSULE PO SCH (06:08)
[2017-04-26] MEDS: CLINDAMYCIN 600 MG/D5W RTU 50 ML IV SCH (06:08)
[2017-04-26] MEDS: FAMOTIDINE 20 MG TABLET PO SCH (10:00)
[2017-04-26] MEDS: LACTOBACILLUS ACIDOPHILUS 250 MG TAB PO SCH (10:00)
[2017-04-26] MEDS: RIVAROXABAN 10 MG TABLET PO SCH (10:00)
[2017-04-26] MEDS: THIAMINE HCL 100 MG TABLET PO SCH (10:03)
[2017-04-26] MEDS: FUROSEMIDE 20 MG TABLET PO SCH (10:03)
[2017-04-26] MEDS: LORATADINE 10 MG TABLET PO SCH (10:03)
[2017-04-26] MEDS: MULTIVITAMIN TABLET PO SCH (10:03)
[2017-04-26] MEDS: DOCUSATE SODIUM 100 MG CAPSULE PO SCH (10:03)
[2017-04-26] MEDS: TIOTROPIUM BROMIDE DPI 5 CAP/KIT (18 MCG/CAP) IH SCH (10:04)
[2017-04-26] MEDS: POLYETHYLENE GLYCOL 3350 POWDER 17 GM/1 PACKET PO SCH (10:06)
[2017-04-26] MEDS: NICOTINE 21 MG/24 HR PATCH.TD24 TD SCH (10:06)
[2017-04-26] MEDS: FLUTICASONE/SALMETEROL DISKUS 250-50 MCG/DOSE IH SCH (10:06)
[2017-04-26 10:48] VITALS: BP 106/66
[2017-04-26] MEDS: OXYCODONE-ACETAMINOPHEN 5-325 MG TABLET PO PRN (11:15)
--- NOTE | 2017-04-26 14:59 | DISCHARGE SUMMARY E ---
Discharge Summary NAME: ANALY NEVAREZ : 1955 AGE: 61Y ADMITTED: 04/22/2017 DISCHARGED: 04/26/2017 CODE STATUS: FULL CODE. PRIMARY CARE PROVIDER: [facility]. DISCHARGE DIAGNOSES: Include: 1. Recurrent cellulitis of bilateral lower extremities. 2. Hypokalemia, which has been repleted. 3. Tobacco dependency. 4. Chronic lymphedema. 6. Peripheral vascular disease. 7. Alcohol dependency. 8. Coronary artery disease. 9. Chronic obstructive pulmonary disease. 10. Long-term use of anticoagulation due to history of DVT. 11. Gastroesophageal reflux disease. 12. Obstructive sleep apnea. DISCHARGE MEDICATIONS: Include: 1. Align 4 mg p.o. b.i.d., 28 capsules, 0 refills. 2. Clindamycin 300 mg p.o. q.6 h., 40 tablets, 0 refills. 3. Ventolin HFA 2 puffs inhalation q.6 h. p.r.n. 4. Vitamin D3 5000 international units p.o. daily. 5. Vitamin B12 500 mcg p.o. daily. 6. Colace 100 mg p.o. b.i.d. 7. Advair 250/50 one puff inhalation q.12 h. 8. Folic acid 1 mg p.o. daily. 9. Lasix 20 mg p.o. q.12 h. 10. Atarax 10 mg p.o. t.i.d. 11. Claritin 10 mg p.o. daily. 12. Melatonin 10 mg p.o. q. hour of sleep. 13. Nasonex 1 spray nasally q.12 h. p.r.n. 14. Singulair 10 mg p.o. q. hour of sleep. 15. Multivitamin 1 tablet p.o. daily. 16. Omeprazole 40 mg p.o. daily. 17. Oxycodone 10 mg p.o. q.6 h. 18. Lyrica 150 mg p.o. q.8 h. 19. Xarelto 20 mg p.o. daily. 20. Spiriva 4 grams inhalation b.i.d. 21. Ultram 50 mg p.o. t.i.d. p.r.n. 22. Trazodone 300 mg p.o. q. hour of sleep. 23. Vitamin-B complex 100 mg p.o. daily. DIET: As tolerated. ACTIVITY: Home Health, Physical Therapy. HISTORY OF PRESENT ILLNESS: The patient is a 61-year-old male with a past medical history of recurrent cellulitis that is well known to the hospitalist service. The patient presented to the emergency department with a chief complaint of leg pain and redness. The patient does have a known history of peripheral artery disease. The patient had been in his usual state of health until the prior to admission when he developed an increasing erythema of the left lower extremity. The patient was seen that afternoon by his family practice provider and was not started on antibiotics at that time. The patient was told to keep an eye on it. The patient felt that the erythema had worsened and therefore came to the emergency department for evaluation. The patient was also noted to have fever, chills. The patient denied any other symptoms of infection including respiratory symptoms, dyspnea, cough. The patient denied any history of diabetes. The patient continued to be tobacco dependent of 1 to 2 packs per day and also drinks alcohol in excess daily and some recreational drug use. Given the findings consistent with persistent cellulitis, the patient was referred the hospitalist for admission and management. HOSPITAL COURSE: The patient was admitted to continuous telemetry unit. The patient was found to be hypokalemic, and the patient's potassium was repleted. The patient's initial white count was found to be 13. This trended down nicely to 10.2. The patient had a mildly elevated INR which was felt to be due to his alcohol use, and the patient's blood cultures remained unremarkable. The patient's venous and arterial Dopplers did not show any clot nor worrisome lesions at the moment, and the patient will need to follow this up in an outpatient setting. At this time, the patient has responded well to broad-spectrum antibiotic coverage which was transitioned over to oral clindamycin, to which the patient has responded and is ready for discharge. DIAGNOSTICS: Lab values are as follows: Hematology obtained on 04/24/2017; WBCs are 10.2, hemoglobin is 11.3, hematocrit is 33.3, platelet count is 234,000. Coagulation studies obtained on 04/24/2017: PT is 16.9, INR is 1.29. Chemistry obtained on 04/24/2017: Sodium is 143, potassium is 4.1, chloride is 104, carbon dioxide 31, BUN 5, creatinine is 0.61, glucose 92, calcium is 8.1, magnesium 1.9, total bilirubin 0.6, AST 30, ALT 26, alkaline phosphatase 77, total protein 6.2, albumin 2.4. Toxicology obtained on 04/24/2017. Vancomycin trough is 19.2. Blood cultures obtained on 04/22/2017 revealed no growth. PHYSICAL EXAMINATION: GENERAL: On examination the patient is a well-developed, well-nourished, 61-year-old male who is awake, alert and oriented to person, place, time, and situation. He is verbal, conversational, does not appear to be in any acute distress. VITAL SIGNS: As follows: Temperature is 97.9, pulse 67, respirations 18, blood pressure 106/66, oxygen saturation is 100% on room air. SKIN: Warm and dry. No rash. Not diaphoretic. NECK: There is no JVD. CARDIOVASCULAR SYSTEM: Heart is regular. There is no murmur or rub. CHEST: Clear, symmetrical, unlabored. ABDOMEN: Soft, nontender, nondistended. BACK: No CVA tenderness, sacral edema. EXTREMITIES: Do appear improved. Redness is prevalent, but erythema has resolved. PSYCHIATRIC: Appropriate affect. Pleasant mood. DISCHARGE PLANNING: The patient is to follow up with the primary care provider within 1 week for hospital followup. TOTAL TIME SPENT: Time spent on this discharge including assessment, plan, physical examination, patient education, and resource alignment is 25 minutes. DICTATING PHYSICIAN: LYNDA OCONNELL NP [id number] Y#: [id number] [id number] JOB#: [id number] ACCT: [id number] cc:LYNDA OCONNELL NP > [facility]
== END 2017-04-26 12:57 | disposition home health service (06) | DRG 638 ==
LOC: ER 11:08 → UNDOADMIN 12:41 → EH 12:41 → 5 14:29
PROVIDERS: ADMIT Internal Medicine; ATTEND Internal Medicine
DX: E11.628 Type 2 diabetes mellitus with other skin complications (principal); L03.116 Cellulitis of left lower limb; L03.115 Cellulitis of right lower limb; L97.329 Non-pressure chronic ulcer of left ankle with unspecified severity; Z68.41 Body mass index [BMI] 40.0-44.9, adult; E87.6 Hypokalemia; E11.51 Type 2 diabetes mellitus with diabetic peripheral angiopathy without gangrene; I87.8 Other specified disorders of veins; I11.0 Hypertensive heart disease with heart failure; I50.9 Heart failure, unspecified; J44.9 Chronic obstructive pulmonary disease, unspecified; F17.200 Nicotine dependence, unspecified, uncomplicated; J45.909 Unspecified asthma, uncomplicated; E66.01 Morbid (severe) obesity due to excess calories; G47.33 Obstructive sleep apnea (adult) (pediatric); I89.0 Lymphedema, not elsewhere classified; E78.5 Hyperlipidemia, unspecified; K21.9 Gastro-esophageal reflux disease without esophagitis; F10.20 Alcohol dependence, uncomplicated; I25.10 Atherosclerotic heart disease of native coronary artery without angina pectoris; K20.9 Esophagitis, unspecified; L28.0 Lichen simplex chronicus; R79.1 Abnormal coagulation profile; Z95.5 Presence of coronary angioplasty implant and graft; I87.2 Venous insufficiency (chronic) (peripheral); E11.610 Type 2 diabetes mellitus with diabetic neuropathic arthropathy; Z79.02 Long term (current) use of antithrombotics/antiplatelets; I25.2 Old myocardial infarction; Z86.711 Personal history of pulmonary embolism; Z86.718 Personal history of other venous thrombosis and embolism; Z86.14 Personal history of Methicillin resistant Staphylococcus aureus infection; Z99.81 Dependence on supplemental oxygen; Z88.6 Allergy status to analgesic agent; Z88.1 Allergy status to other antibiotic agents; Z82.49 Family history of ischemic heart disease and other diseases of the circulatory system; Z79.51 Long term (current) use of inhaled steroids; Z80.49 Family history of malignant neoplasm of other genital organs
CPT/HCPCS: 36415; 80048; 80053; 80202; 83735; 84132; 85025; 85610; 85730; 87040; 93925; 93970; 94640; 96361; 96374; 99285; G8978-GP; G8979-GP; J2270; J3370; J3480; J3490; J7060; J7620

== ENCOUNTER → 2017-05-22 | Outpatient (CLI) | payer MEDICARE ==
--- NOTE | 2017-05-22 18:42 | XCELERA REPORT ---
[address] [address] Lower Extremity Venous Evaluation Name: ANALY NEVAREZ Age: 61 yrs Gender: Male : 1955 Patient Status: Outpatient Patient Location: Study Date: 05/22/2017 12:49 PM Procedure: A bilateral duplex scan of the lower extremity veins was performed. The evaluation included responses to compression and other maneuvers with patient in the supine and standing positions to assess venous insufficiency. Reason For Study: ULCER Ordering Physician: NURIS MARIE Performed By: Mikel Sadler Right Sided Venous Evaluation Deep venous system evaluation shows patent veins with significant reflux identified. 5.6 second reflux in the CFV, 2.3 seconds reflux in the Femoral vein. 2.4 seconds in the Popliteal vein. Sapheno Femoral junction: no reflux. Femoral vein reflux: no reflux. Greater Saphenous vein, Proximal thigh: reflux: no reflux. Greater Saphenous vein, Distal thigh: reflux: no reflux. Greater Saphenous vein, Proximal below knee: reflux: no reflux. No significant Perforators identified. Left Sided Venous Evaluation Deep venous system evaluation shows patent veins with significant reflux identified. No reflux in the CFV, 1.7 seconds reflux in the Femoral vein. Sapheno Femoral junction: no reflux. Greater Saphenous vein, Proximal thigh: reflux: no reflux. Greater Saphenous vein, Distal thigh: reflux: no reflux. Greater Saphenous vein, Proximal below knee: reflux: no reflux. No significant Perforators identified. Interpretation Summary No duplex evidence of DVT or obstruction in the bilateral lower extremities. Deep reflux as noted. : NURIS MARIE Lennox
== END ==
LOC: SP 11:40
PROVIDERS: ATTEND Nurse Practitioner Family
DX: L97.212 Non-pressure chronic ulcer of right calf with fat layer exposed (principal); L97.322 Non-pressure chronic ulcer of left ankle with fat layer exposed
CPT/HCPCS: 93970

== ENCOUNTER 2017-06-29 10:09 | Emergency (ER) | payer MEDICARE ==
--- NOTE | 2017-06-29 10:52 | ER Document Report ---
HPI - HPI Notes: Patient with h/o known large umbilical hernia, PAD, PE/DVT (on xarelto), COPD, HTN, and chronic LBP comes to the ED via EMS c/o periumbilical pain x1 day. Pt states that the pain is sharp and throbbing. The pain does not radiate. No position helps with his pain. Pt states that he is still eating and drinking without any difficulties. Pt is still having BM's. His last meal was last evening at 1800 and he had fried chicken with broccoli. Pt states that he did feel nauseated this AM and had one episode of vomiting. Pt states that he was eval'd by previous general surgeons who he said did not want to operate on him due to the health risk. + smoking. denies elicit drug use aside from occ marijuana. Denies any headache, fever, URI, sore throat, chest pain, palpitations, syncope, acute cough/shortness of breath/dyspnea, diarrhea, melena , hematochezia, urinary retention, dysuria, hematuria, loss of control of bowel or bladder, numbness/tingling, saddle anesthesia, muscle paralysis/weakness, or rash. - ROS Notes: REVIEW OF SYSTEMS: CONSTITUTIONAL : Denies fever, chills, or sweats. Denies recent illness. EENT: Denies eye, ear, throat, or mouth pain or symptoms. Denies nasal or sinus congestion or discharge. Denies throat, tongue, or mouth swelling or difficulty swallowing. CARDIOVASCULAR: Denies chest pain. Denies palpitations or racing or irregular heart beat. Denies ankle edema. RESPIRATORY: Denies cough, cold, or chest congestion. Denies acute shortness of breath, difficulty breathing. +chronic wheeze. GASTROINTESTINAL: see hpi GENITOURINARY: Denies difficulty urinating, painful urination, burning, frequency, blood in urine, or discharge. MUSCULOSKELETAL: see hpi SKIN: Denies rash, lesions or sores. NEUROLOGICAL: Denies confusion or altered mental status. Denies passing out or loss of consciousness. Denies dizziness or lightheadedness. Denies headache. Denies weakness or paralysis or loss of use of either side. Denies problems with gait or speech. Denies sensory loss, numbness, or tingling. ALL OTHER SYSTEMS REVIEWED AND NEGATIVE. Dictation was performed using [email or web address] voice recognition software - REPRODUCTIVE Reproductive: DENIES: : Past Medical History - Social History Smoking Status: Current Every Day Smoker Family History: COPD, Hypertension - Past Medical History Cardiac Medical History: Reports: Hx Congestive Heart Failure, Hx DVT, Hx Heart Attack, Hx Hypercholesterolemia, Hx Hypertension, Hx Peripheral Vascular Disease , Hx Pulmonary Embolism Pulmonary Medical History: Reports: Hx Asthma, Hx Bronchitis, Hx COPD, Hx Pneumonia, Hx Sleep Apnea Denies: Hx Tuberculosis Neurological Medical History: Denies: Hx Seizures Renal/ Medical History: Denies: Hx Peritoneal Dialysis GI Medical History: Reports: Hx Gastroesophageal Reflux Disease, Hx Hiatal Hernia, Hx Ulcer Psychiatric Medical History: Denies: Hx Depression Infectious Medical History: Reports: Hx MRSA, 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 Denies: Hx Appendectomy, Hx Bowel Surgery, Hx Coronary Artery Bypass Graft, Hx Gastric Bypass Surgery, Hx Pacemaker - Immunizations Hx Diphtheria, Pertussis, Tetanus Vaccination: Yes Hx Pneumococcal Vaccination: 03/25/13 Vertical Provider Document - CONSTITUTIONAL Agree With Documented VS: Yes Notes: PHYSICAL EXAMINATION: GENERAL: Well-appearing, well-nourished and in no acute distress. On o2 via NC. NECK: Normal range of motion, supple without lymphadenopathy LUNGS: distant breath sounds, prolonged expiratory resp, + mild wheezing. HEART: Regular rate and rhythm without murmurs, rubs, gallops. ABDOMEN: Soft, nondistended abdomen. No guarding, no rebound. No masses appreciated. Normal bowel sounds present. No CVA tenderness bilaterally. + large umbilical hernia noted. Reducible. + tenderness to palp. + varicose veins throughout abd noted (prev visualized on CT last year). Extremities: 2+ edema b/l. Capillary refill less than 3 seconds. PSYCH: Normal mood, normal affect. SKIN: Warm, Dry, normal turgor, no rashes or lesions noted. - INFECTION CONTROL TRAVEL OUTSIDE OF THE [place] IN LAST 30 DAYS: No - RESPIRATORY O2 Sat by Pulse Oximetry: 100 Course - Re-evaluation Re-evalutation: 06/29/17 18:19 Patient is an afebrile, well-hydrated, 62-year-old male who presents the ED with abdominal pain and umbilical hernia. Vitals are stable. Dr. Rousseau also evaluate the patient. The hernia does seem reducible, but the patient's pain continues. KUB showed stool. An enema was given without any relief. Patient is currently taking narcotics at home and is on a pain contract. Ice pack given. Patient is to be kept n.p.o. at this time. Ultrasound was inconclusive. Reviewed with the general surgeon Dr. Abarca who then recommended a CT scan of the abdomen and pelvis with oral and IV contrast. 06/29/17 18:30 CT scan showed an incarcerated umbilical hernia with small bowel obstruction. Dr. Abarca was notified who will come evaluate the patient and take over care. Reviewed case with patient who verbalized understanding. 06/29/17 18:59 Dr. Abarca evaluated the patient. Patient has cirrhosis, o2 dependant COPD, 3 prev umbilical hernia repair surgeries, on xarelto for PE/DVT's. Pt will need transferred Reviewed with patient who would like to go to [facility] 06/29/17 19:[address] Trinidad who will accept on ED-ED transfer. Truck en route as they want him justen. - Vital Signs Vital signs: Temp Pulse Resp BP Pulse Ox 98.8 F 95 20 111/87 H 100 06/29/17 10:26 06/29/17 10:26 06/29/17 10:26 06/29/17 10:26 06/29/17 10:26 - Laboratory Result Diagrams: 06/29/17 11:24 06/29/17 11:24 Discharge - Discharge Clinical Impression: Small bowel obstruction, Incarcerated umbilical hernia Abdominal pain Qualifiers: Abdominal location: unspecified location Qualified Code(s): R10.9 - Unspecified abdominal pain Condition: Stable Disposition: [facility]
[2017-06-29] MEDS ORDERED: MINERAL OIL ENEMA 133 ML PR ONE (11:26)
[2017-06-29 11:37] LABS: ABSOLUTE EOSINOPHILS # (AUTO) 0.1 10^3/uL (0.0-0.6); ABSOLUTE LYMPHOCYTES (AUTO) 2.4 10^3/uL (0.5-4.7); ABSOLUTE MONOCYTES (AUTO) 1.1 10^3/uL (0.1-1.4); ABSOLUTE NEUT (AUTO) 9.4 10^3/uL (1.7-8.2); BASOPHILS % (AUTO) 0.1 % (0-2); EOSINOPHILS % (AUTO) 0.5 % (0-6); HEMATOCRIT 37.7 % (37.9-51.0); HEMOGLOBIN 12.7 g/dL (13.5-17.0); HGB HCT DIFFERENCE 0.4; LYMPHOCYTES % (AUTO) 18.5 % (13-45); MEAN CORPUSCULAR HEMOGLOBIN 31.4 pg (27.0-33.4); MEAN CORPUSCULAR HGB CONC 33.5 g/dL (32.0-36.0); MEAN CORPUSCULAR VOLUME 94 fl (80-97); MONOCYTES % (AUTO) 8.7 % (3-13); RED BLOOD COUNT 4.03 10^6/uL (4.35-5.55); RED CELL DISTRIBUTION WIDTH 16.1 % (11.5-14.0); SEGMENTED NEUTROPHILS % (AUTO) 72.2 % (42-78)
[2017-06-29 11:50] LABS: ALANINE AMINOTRANSFERASE 26 U/L (21-72); ALBUMIN 3.8 g/dL (3.5-5.0); ALKALINE PHOSPHATASE 82 U/L (38-126); ANION GAP 5 (5-19); ASPARTATE AMINO TRANSFERASE 45 U/L (17-59); BILIRUBIN,DIRECT 0.4 mg/dL (0.0-0.4); BILIRUBIN,TOTAL 0.9 mg/dL (0.2-1.3); BLOOD UREA NITROGEN 10 mg/dL (7-20); CALCIUM 9.5 mg/dL (8.4-10.2); CARBON DIOXIDE 34 mmol/L (22-30); CHLORIDE 103 mmol/L (98-107); GLUCOSE 125 mg/dL (75-110); POTASSIUM 3.9 mmol/L (3.6-5.0); SODIUM 141.6 mmol/L (137-145)
[2017-06-29 14:21] LABS: ADD ON TESTING BLD IN LAB ACKNOWLEDGE
[2017-06-29 14:37] LABS: LIPASE 26.7 U/L (23-300)
[2017-06-29] MEDS ORDERED: ONDANSETRON HCL INJ/PF 4 MG/2 ML SDV IV ONE (15:49)
[2017-06-29] MEDS ORDERED: HYDROMORPHONE HCL INJ/PF 2 MG/ML AMPULE IV ONE (19:10)
--- NOTE | 2017-06-29 19:12 | PDOC CONSULTATION ---
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 Patient has had a long-standing ventral hernia patient noted more pain around that area in his lower abdomen for the past day and subsequently came in through the emergency department. He had an episode of emesis and has not had a bowel movement in the last 24 hours. Past Medical History Cardiac Medical History: Reports: Congestive Heart Failure, DVT, Myocardial Infarction, Hyperlipidema, Hypertension, Peripheral Vascular Disease, Pulmonary Embolism Pulmonary Medical History: Reports: Asthma, Bronchitis, Chronic Obstructive Pulmonary Disease (COPD), Pneumonia, Sleep Apnea Denies: Tuberculosis Neurological Medical History: Denies: Seizures GI Medical History: Reports: Cirrhosis - Alcoholic, Gastroesophageal Reflux Disease, Hiatal Hernia Psychiatric Medical History: Denies: Depression Infectious Medical History: Reports: Methicillin-Resistant Staph Aureus, Vancomycin-Resistant Enterococci - Recurrent cellulitis of right lower extremity Past Surgical History Past Surgical History: Reports: Cardiac Catheterization - stent x1, Cholecystectomy, Herniorrhaphy - Patient has had several ventral hernia repair in the past., Orthopedic Surgery - multiple back, Tonsillectomy, Vascular Surgery - filter placed, pt unsure where Denies: Appendectomy, Coronary Artery Bypass Graft, Gastric Bypass Surgery, Pacemaker Social History Smoking Status: Current Every Day Smoker Frequency of Alcohol Use: Heavy Hx Recreational Drug Use: No Drugs: None Hx Prescription Drug Abuse: No Family History Family History: COPD, Hypertension Parental Family History Reviewed: No Children Family History Reviewed: No Sibling(s) Family History Reviewed.: No Medication/Allergy Home Medications: Albuterol Sulfate [Ventolin HFA MDI 18 GM] 2 puff IH Q6HP PRN 04/22/17 Cholecalciferol (Vitamin D3) [Vitamin D3 5000 unit Capsule] 5,000 unit PO DAILY 04/22/17 Cyanocobalamin (Vitamin B-12) [Vitamin B-12] 500 mcg PO DAILY 04/22/17 Docusate Sodium [Dok] 100 mg PO BID 04/22/17 Fluticasone/Salmeterol [Advair 250-50 Diskus 28 dose] 1 inh IH Q12 04/22/17 Folic Acid 1 mg PO DAILY 04/22/17 Furosemide [Lasix 20 mg Tablet] 20 mg PO Q12 04/22/17 Hydroxyzine HCl [Atarax 10 mg Tablet] 10 mg PO TID 04/22/17 Loratadine [Claritin 10 mg Tablet] 10 mg PO DAILY 04/22/17 Melatonin 10 mg PO QHS 04/22/17 Mometasone Furoate [Nasonex] 1 spray NAREB Q12HP PRN 04/22/17 Montelukast Sodium [Singulair 10 mg Tablet] 10 mg PO QHS 04/22/17 Multivitamin [Tab-A-Bailey] 1 tab PO DAILY 04/22/17 Omeprazole 40 mg PO DAILY 04/22/17 Oxycodone HCl [Oxycodone HCl 10 MG Tablet] 10 mg PO Q6 04/22/17 Pregabalin [Lyrica] 150 mg PO Q8 04/22/17 Rivaroxaban [Xarelto] 20 mg PO DAILY 04/22/17 Tiotropium [place] [Spiriva Respimat] 4 gm IH BID 04/22/17 Tramadol HCl [Ultram 50 mg Tablet] 50 mg PO TIDP PRN 04/22/17 Trazodone HCl [Desyrel] 300 mg PO QHS 04/22/17 Vitamin B Complex 100 No.2 [B-100 Complex] 100 mg PO DAILY 04/22/17 Bifidobacterium Infantis [Align 4 mg Capsule] 1 cap PO BID #28 cap 04/26/17 Clindamycin HCl 300 mg PO Q6H #40 capsule 04/26/17 Allergies/Adverse Reactions: cephalexin monohydrate [From Keflex] Allergy (Intermediate, Verified 06/08/16 08 :54) codeine Allergy (Verified 06/08/16 08:54) morphine Allergy (Verified 06/08/16 08:54) Physical Exam Vital Signs: Temp Pulse Resp BP Pulse Ox 98.6 F 95 14 120/81 100 06/29/17 16:24 06/29/17 10:26 06/29/17 16:24 06/29/17 16:24 06/29/17 18:48 General appearance: PRESENT: mild distress - Patient short of breath, morbidly obese Respiratory exam: PRESENT: wheezes Cardiovascular exam: PRESENT: RRR GI/Abdominal exam: PRESENT: other - Obese, distended, complex midline abdominal scar that is well-healed. A lower abdominal orange sized ventral hernia that is easily reducible but it probably herniates out. there is tenderness without peritoneal signs and with no erythema nor induration. Extremities exam: PRESENT: other - Bilateral lower extremity with compressive dressings with bilateral feet edema and chronic skin changes Results Laboratory Results: 06/29/17 11:24 06/29/17 11:24 06/29/17 06/29/17 06/29/17 11:24 11:24 11:24 WBC 13.0 H RBC 4.03 L Hgb 12.7 L Hct 37.7 L MCV 94 MCH 31.4 MCHC 33.5 RDW 16.1 H Plt Count 253 Seg Neutrophils % 72.2 Lymphocytes % 18.5 Monocytes % 8.7 Eosinophils % 0.5 Basophils % 0.1 Absolute Neutrophils 9.4 H Absolute Lymphocytes 2.4 Absolute Monocytes 1.1 Absolute Eosinophils 0.1 Absolute Basophils 0.0 Sodium 141.6 Potassium 3.9 Chloride 103 Carbon Dioxide 34 H Anion Gap 5 BUN 10 Creatinine 0.80 Est GFR ( Amer) > 60 Est GFR (Non-Af Amer) > 60 Glucose 125 H Calcium 9.5 Total Bilirubin 0.9 AST 45 ALT 26 Alkaline Phosphatase 82 Total Protein 8.0 Albumin 3.8 Lipase 26.7 Assessment & Plan - Diagnosis (1) Small bowel obstruction Is this a current diagnosis for this admission?: Yes Plan: Patient with an easily reducible hernia but nevertheless he has abdominal pain with CT scan evidence of small bowel obstruction. Patient may very well require emergency laparotomy but only after optimizing his pulmonary condition and stoppage of Xarelto for 24 hours. With his multiple severe comorbidities including cirrhosis and end-stage COPD and significant cardiac history, patient would be better served at a tertiary care institution. I have discussed my recommendation with the ER physician who will arrange transfer.
[2017-06-29 20:32] VITALS: BP 119/74
--- NOTE | 2017-06-29 20:45 | ER Document Report ---
Doctor's Note Notes: 06/29/17 20:45 Patient resting comfortably on stretcher, no complaints at present time, vital signs remained stable, he is awake and alert and in no acute distress, he is currently stable for transport to tertiary care center, ambulance crew is in the department to do so
--- NOTE | 2017-06-30 15:12 | RADIOLOGY REPORT (SQ) ---
EXAM DESCRIPTION: KUB/ABDOMEN (SINGLE VIEW) COMPLETED DATE/TIME: 06/29/2017, 1108 hours REASON FOR STUDY: Large umbilical hernia, periumbilical pain COMPARISON: CT abdomen pelvis 06/08/2016 CT angio chest 01/27/2017 Abdominal x-ray 02/02/2017 TECHNIQUE: KUB film, large patient, two cassettes LIMITATIONS: Large patient FINDINGS: Lung bases are grossly clear. Nonobstructive bowel gas pattern. The patient's umbilical hernia is difficult to identify on today's KUB images. No ectopic calcifications worrisome for urinary stones. Surgical clips left upper quadrant near the GE junction. Inferior vena cava filter. Laparoscopic ve ntral hernia tacks are present. Lower lumbar fusion hardware. Degenerative changes thoracic and lumbar spine. Old healed left lower lateral rib fractures. IMPRESSION: Grossly nonobstructive bowel gas pattern. Umbilical hernia clinically evident is not apparent by today's plain film. Evidence of prior laparos copic ventral hernia repair.
--- NOTE | 2017-07-01 08:10 | RADIOLOGY REPORT (SQ) ---
EXAM DESCRIPTION: CT ABD/PELVIS WITH IV ORAL COMPLETED DATE/TIME: 06/29/2017 6:14 pm REASON FOR STUDY: large umbilical hernia, acute pain COMPARISON: 06/08/2016 TECHNIQUE: CT scan of the abdomen performed with intravenous and WITH oral contrast using helical sc anning technique with dynamic intravenous contrast injection. Images reviewed with lung, soft tissue, and bone windows. Reconstructed coronal and sagittal MPR images reviewed. Delayed images for evaluat ion of the urinary system also acquired and evaluated. All images stored on PACS. All CT scanners at this facility use dose modulation, iterative reconstruc tion, and/or weight based dosing when appropriate to reduce radiation dose to as low as reasonably ac hievable (ALARA). [facility]: Dose Right [facility]: CareDose [facility]: Dose Right [facility]: Teradose 4D [facility]: [facility] CONTRAST TYPE AND DOSE: Information not provided. RENAL FUNCTION: GFR > 60. RADIATION DOSE: . LIMITATIONS: None. FINDINGS: LOWER CHEST: No significant findings. No nodules or infiltrates. LIVER: Hepatic steatosis. No masses. No dilated ducts. SPLEEN: Normal size. No focal lesions. PANCREAS: No masses. No significant calcifications. No adjacent inflammation or peripancreatic fluid collections. Pancreatic duct not dilated. GALLBLADDER: No identified stones by CT criteria. No inflammatory changes to suggest cholecystitis. ADRENAL GLANDS: Stable 2 cm left adrenal adenoma. Otherwise normal. RIGHT KIDNEY AND URETER: No solid masses. No significant calcifications. No hydronephrosis or hyd roureter. LEFT KIDNEY AND URETER: Stable cysts. No solid masses. No significant calcifications. No hydrone phrosis or hydroureter. AORTA AND VESSELS: Atherosclerotic calcifications. No aneurysm. No dissection. Renal arteries, SMA, celiac without stenosis. 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 RETROPERITONEUM: No retroperitoneal adenopathy, hemorrhage or masses. BOWEL AND PERITONEAL CAVITY: Fluid distended loops of small bowel with apparent transition point at s ite of previously identified ventral wall abdominal hernia compatible with incarceration. No pneumat osis or free air. Scattered colonic diverticula without acute inflammation. APPENDIX: Not visualized. ABDOMINAL WALL: As above with additional fat containing inguinal hernias. BONES: Stable degenerative change without fracture or suspicious osseous lesion. OTHER: No other significant finding. IMPRESSION: CT FINDINGS COMPATIBLE WITH DISTAL SMALL BOWEL OBSTRUCTION SECONDARY TO INCARCERATED ABD OMINAL WALL HERNIA DETAILED ABOVE. REMAINING FINDINGS ARE STABLE FROM 06/08/2016. TECHNICAL DOCUMENTATION: JOB ID: [id number] Quality ID # [id number]: Final reports with documentation of one or more dose reduction techniques (e.g., Au tomated exposure control, adjustment of the mA and/or kV according to patient size, use of iterative reconstruction technique) 2010 [employer]- All Rights Reserved
== END 2017-06-29 20:52 | disposition short-term general hospital (02) ==
LOC: ER 10:09
DX: K42.0 Umbilical hernia with obstruction, without gangrene (principal); K70.30 Alcoholic cirrhosis of liver without ascites; R10.33 Periumbilical pain; R11.2 Nausea with vomiting, unspecified; J44.9 Chronic obstructive pulmonary disease, unspecified; I10 Essential (primary) hypertension; I25.2 Old myocardial infarction; I26.99 Other pulmonary embolism without acute cor pulmonale; I82.409 Acute embolism and thrombosis of unspecified deep veins of unspecified lower extremity; M54.5 Low back pain; G89.29 Other chronic pain; F17.200 Nicotine dependence, unspecified, uncomplicated; Z79.01 Long term (current) use of anticoagulants; Z79.891 Long term (current) use of opiate analgesic; Z99.81 Dependence on supplemental oxygen
CPT/HCPCS: 99285; 96374; 96375; 36415; 83690; 85025; 80053; 74000; 74177; J3490; J1170; J2405

== ENCOUNTER 2017-08-22 20:20 | Emergency (ER) | payer MEDICARE ==
[2017-08-22] MEDS ORDERED: HYDROMORPHONE HCL INJ/PF 2 MG/ML AMPULE IV ONE (20:34)
--- NOTE | 2017-08-22 20:36 | ER Document Report ---
ED GI/ - General Chief Complaint: Abdominal Pain Stated Complaint: ABDOMINAL PAIN Time Seen by Provider: 08/22/17 20:30 Notes: The patient is a 62-year-old male, past medical history ventral hernia, prior SBO, presents with sudden onset of diffuse abdominal pain, nausea and vomiting that started after he ate two sandwiches from [address]. He said that it feels similar to his prior bowel obstruction. He had a bowel movement 2 hours after the onset of his symptoms. He denies urinary symptoms, fevers, flank pain, chest pain, shortness of breath, hematemesis, diarrhea, constipation or recent travel. TRAVEL OUTSIDE OF THE [place] IN LAST 30 DAYS: No - Related Data Allergies/Adverse Reactions: cephalexin monohydrate [From Keflex] Allergy (Intermediate, Verified 06/08/16 08 :54) codeine Allergy (Verified 06/08/16 08:54) morphine Allergy (Verified 06/08/16 08:54) Past Medical History - General Information source: Patient - Social History Smoking Status: Unknown if Ever Smoked Family History: COPD, Hypertension - Past Medical History Cardiac Medical History: Reports: Hx Congestive Heart Failure, Hx DVT, Hx Heart Attack, Hx Hypercholesterolemia, Hx Hypertension, Hx Peripheral Vascular Disease , Hx Pulmonary Embolism Pulmonary Medical History: Reports: Hx Asthma, Hx Bronchitis, Hx COPD, Hx Pneumonia, Hx Sleep Apnea Denies: Hx Tuberculosis Neurological Medical History: Denies: Hx Seizures Renal/ Medical History: Denies: Hx Peritoneal Dialysis GI Medical History: Reports: Hx Cirrhosis - Alcoholic, Hx Gastroesophageal Reflux Disease, Hx Hiatal Hernia, Hx Ulcer Psychiatric Medical History: Denies: Hx Depression Infectious Medical History: Reports: Hx MRSA, 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 Denies: Hx Appendectomy, Hx Bowel Surgery, Hx Coronary Artery Bypass Graft, Hx Gastric Bypass Surgery, Hx Pacemaker - Immunizations Hx Diphtheria, Pertussis, Tetanus Vaccination: Yes Hx Pneumococcal Vaccination: 03/25/13 Review of Systems - Review of Systems Notes: REVIEW OF SYSTEMS: CONSTITUTIONAL: -fevers, -chills EENT: -eye pain, -difficulty swallowing, -nasal congestion CARDIOVASCULAR:-chest pain, -syncope. RESPIRATORY: -cough, -SOB GASTROINTESTINAL: +abdominal pain, +nausea, +vomiting, -diarrhea GENITOURINARY: -dysuria, -hematuria MUSCULOSKELETAL: -back pain, -neck pain SKIN: -rash or skin lesions. HEMATOLOGIC: -easy bruising or bleeding. LYMPHATIC: -swollen, enlarged glands. NEUROLOGICAL: -altered mental status or loss of consciousness, -headache, - neurologic symptoms PSYCHIATRIC: -anxiety, -depression. ALL OTHER SYSTEMS REVIEWED AND NEGATIVE. Physical Exam - Vital signs Vitals: Temp Pulse Resp BP Pulse Ox 99.0 F 92 20 106/65 94 08/22/17 20:35 08/22/17 20:35 08/22/17 20:35 08/22/17 20:35 08/22/17 20:35 - Notes Notes: PHYSICAL EXAMINATION: GENERAL: Uncomfortable. HEAD: Atraumatic, normocephalic. EYES: Pupils equal round and reactive to light, extraocular movements intact, sclera anicteric, conjunctiva are normal. ENT: nares patent, oropharynx clear without exudates. Moist mucous membranes. NECK: Normal range of motion, supple without lymphadenopathy LUNGS: Breath sounds clear to auscultation bilaterally and equal. No wheezes rales or rhonchi. HEART: Regular rate and rhythm without murmurs ABDOMEN: Soft, large reducible ventral hernia, prior midline surgical scars, decreased bowel sounds. EXTREMITIES: Normal range of motion, no pitting or edema. No cyanosis. NEUROLOGICAL: Cranial nerves grossly intact. Normal speech, normal gait. Normal sensory and motor exams. PSYCH: Normal mood, normal affect. SKIN: Warm, Dry, normal turgor, no rashes or lesions noted. Course - Re-evaluation Re-evalutation: 08/22/17 22:43 Pt with SBO on his CT scan. Spoke to Dr. Calhoun and he will be down to see patient. Placing NG tube and starting IV fluids. Patient's pain is under control. 08/22/17 23:05 Dr. Calhoun evaluated patient. Due to patient's multiple comorbidities, including severe COPD with O2 dependence, PE (on Xarelto), alcoholic cirrhosis, the surgeon recommends transfer to tertiary care center for further evaluation and treatment. 2 months ago when this happened, he was transferred to [facility]. Spoke to [facility] and awaiting callback. 08/22/17 23:[address] Donya Ferro and she has accepted patient to [facility]. Awaiting bed assignment. - Vital Signs Vital signs: Temp Pulse Resp BP Pulse Ox 99.0 F 92 18 95/67 L 94 08/22/17 20:35 08/22/17 20:35 08/22/17 21:15 08/22/17 21:01 08/22/17 21:01 - Laboratory Result Diagrams: 08/22/17 20:50 08/22/17 20:55 Laboratory results interpreted by me: 08/22/17 08/22/17 08/22/17 20:50 20:55 22:31 WBC 12.6 H RBC 4.34 L RDW 16.8 H Seg Neutrophils % 78.9 H Absolute Neutrophils 9.9 H Potassium 3.5 L Glucose 129 H Ur Leukocyte Esterase TRACE H - Diagnostic Test Radiology reviewed: Image reviewed, Reports reviewed Radiology results interpreted by me: CT A/P: SBO Discharge - Discharge Clinical Impression: SBO (small bowel obstruction) Condition: Serious Disposition: [facility] Referrals: SOHA BENITEZ FNP [Primary Care Provider] - Follow up as needed
[2017-08-22 21:08] LABS: ABSOLUTE EOSINOPHILS # (AUTO) 0.1 10^3/uL (0.0-0.6); ABSOLUTE LYMPHOCYTES (AUTO) 1.7 10^3/uL (0.5-4.7); ABSOLUTE MONOCYTES (AUTO) 0.8 10^3/uL (0.1-1.4); ABSOLUTE NEUT (AUTO) 9.9 10^3/uL (1.7-8.2); BASOPHILS % (AUTO) 0.2 % (0-2); EOSINOPHILS % (AUTO) 0.6 % (0-6); HEMATOCRIT 40.2 % (37.9-51.0); HEMOGLOBIN 13.8 g/dL (13.5-17.0); HGB HCT DIFFERENCE 1.2; LYMPHOCYTES % (AUTO) 13.9 % (13-45); MEAN CORPUSCULAR HEMOGLOBIN 31.7 pg (27.0-33.4); MEAN CORPUSCULAR HGB CONC 34.3 g/dL (32.0-36.0); MEAN CORPUSCULAR VOLUME 92 fl (80-97); MONOCYTES % (AUTO) 6.4 % (3-13); RED BLOOD COUNT 4.34 10^6/uL (4.35-5.55); RED CELL DISTRIBUTION WIDTH 16.8 % (11.5-14.0); SEGMENTED NEUTROPHILS % (AUTO) 78.9 % (42-78); WHITE BLOOD COUNT 12.6 10^3/uL (4.0-10.5)
[2017-08-22 21:28] LABS: ALANINE AMINOTRANSFERASE 34 U/L (21-72); ALBUMIN 4.1 g/dL (3.5-5.0); ALKALINE PHOSPHATASE 89 U/L (38-126); ANION GAP 12 (5-19); ASPARTATE AMINO TRANSFERASE 30 U/L (17-59); BILIRUBIN,DIRECT 0.4 mg/dL (0.0-0.4); BILIRUBIN,TOTAL 0.5 mg/dL (0.2-1.3); BLOOD UREA NITROGEN 8 mg/dL (7-20); CALCIUM 9.8 mg/dL (8.4-10.2); CARBON DIOXIDE 30 mmol/L (22-30); CHLORIDE 101 mmol/L (98-107); CREATININE RESULT 0.77 mg/dL (0.52-1.25); GLUCOSE 129 mg/dL (75-110); LIPASE 33.5 U/L (23-300); POTASSIUM 3.5 mmol/L (3.6-5.0); SODIUM 143.2 mmol/L (137-145); TOTAL PROTEIN 8.2 g/dL (6.3-8.2)
--- NOTE | 2017-08-22 22:31 | RADIOLOGY REPORT (SQ) ---
EXAM DESCRIPTION: CT ABD/PELVIS WITH IV ONLY COMPLETED DATE/TIME: 08/22/2017 9:59 pm REASON FOR STUDY: diffuse abd pain, N/V, Hx SBO COMPARISON: 06/29/2017 TECHNIQUE: CT scan of the abdomen and pelvis performed using helical scanning technique with dynamic intravenous contrast injection. No oral contrast. Images reviewed with lung, soft tissue, and bone windows. Reconstructed coronal and sagittal MPR images reviewed. Delayed images for evaluation of the urinary system also acquired. All images stored on PACS. All CT scanners at this facility use dose modulation, iterative reconstruction, and/or weight based d osing when appropriate to reduce radiation dose to as low as reasonably achievable (ALARA). [facility]: Dose Right [facility]: CareDose [facility]: Dose Right [facility]: Teradose 4D [facility]: [employer] CONTRAST TYPE AND DOSE: contrast/concentration: Isovue 370.00 mg/ml; Total Contrast Delivered: 100.0 ml; Total Saline Delivered: 30.0 ml RENAL FUNCTION: GFR > 60. RADIATION DOSE: Up-to-date CT equipment and radiation dose reduction techniques were employed. CTDIv ol: 20.8 - 21.1 mGy. DLP: 2215 mGy-cm.. LIMITATIONS: None. FINDINGS: LOWER CHEST: Minimal linear atelectasis in the lingula and right lower lobe. LIVER: Normal size. No masses. No dilated ducts. SPLEEN: Normal size. No focal lesions. PANCREAS: No masses. No significant calcifications. No adjacent inflammation or peripancreatic fluid collections. Pancreatic duct not dilated. GALLBLADDER: No identified stones by CT criteria. No inflammatory changes to suggest cholecystitis. ADRENAL GLANDS: Similar left adrenal nodularity. RIGHT KIDNEY AND URETER: No solid masses. No significant calcifications. No hydronephrosis or hyd roureter. LEFT KIDNEY AND URETER: No solid masses. Similar cysts. No significant calcifications. No hydrone phrosis or hydroureter. AORTA AND VESSELS: No aneurysm. No dissection. Renal arteries, SMA, celiac without stenosis. RETROPERITONEUM: No retroperitoneal adenopathy, hemorrhage or masses. BOWEL AND PERITONEAL CAVITY: Multiple loops of dilated proximal small bowel measuring up to 3.9 cm in diameter with mild adjacent mesenteric inflammatory changes and bowel wall thickening consistent wit h obstruction. A discrete Transition point is seen in the lower abdominal midline hernia, similar to the previous examination, this hernia measures approximately 13 cm in transverse dimension with a 4. 3 cm transverse defect in the rectus sheath. APPENDIX: Normal. PELVIS: Trace free fluid. Normal bladder. ABDOMINAL WALL: Multiple varices. Similar-appearing Ventral hernias. BONES: No acute findings. OTHER: No other significant finding. IMPRESSION: Multiple loops of dilated proximal small bowel measuring up to 3.9 cm in diameter with m ild adjacent mesenteric inflammatory changes and bowel wall thickening consistent with obstruction. A discrete Transition point is seen in the lower abdominal midline hernia, similar to the previous ex amination, this hernia measures approximately 13 cm in transverse dimension with a 4.3 cm transverse defect in the rectus sheath. TECHNICAL DOCUMENTATION: JOB ID: [id number] Quality ID # [id number]: Final reports with documentation of one or more dose reduction techniques (e.g., Au tomated exposure control, adjustment of the mA and/or kV according to patient size, use of iterative reconstruction technique) 2010 [employer]- All Rights Reserved
[2017-08-22] MEDS ORDERED: MIDAZOLAM 2 MG/2 ML INJ IV ONE ×2 (22:43→23:56)
[2017-08-22] MEDS ORDERED: NORMAL SALINE 1000 ML 1,000 ML IV ONE (22:43)
[2017-08-22 23:03] LABS: APPEARANCE,URINE CLEAR; BILIRUBIN,URINE NEGATIVE (NEGATIVE); GLUCOSE, URINE NEGATIVE (NEGATIVE); KETONES,URINE NEGATIVE (NEGATIVE); LEUKOCYTE ESTERASE,URINE TRACE (NEGATIVE); NITRITE,URINE NEGATIVE (NEGATIVE); PROTEIN,URINE NEGATIVE (NEGATIVE); URINE SPECIFIC GRAVITY 1.044; UROBILINOGEN,URINE NEGATIVE mg/dL (<2.0)
--- NOTE | 2017-08-22 23:32 | PDOC CONSULTATION ---
Consultation Consult Date: 08/22/17 Consult reason:: Small bowel obstruction History of Present Illness Admission Date/PCP: MEETA COWAN History of Present Illness: ANALY NEVAREZ is a 62 year old male complaining of abdominal pains with nausea and vomiting after eating a couple of bone less ribs around 1 PM. Patient complained that he had a bowel movement around that time but since then has had no bowel movement or flatus. He called EMS and brought him to the ER. He had a CAT scan of the abdomen which showed ventral hernia with small bowel obstruction. 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 Patient has liver cirrhosis with varices but still drinks at least a sixpack of beers a day. He says he cannot give up smoking and drinking. Patient also takes Xarelto for history of DVT of the lower extremities and he took his Xarelto this morning. Patient apparently had the same problems about 2 months ago and was transferred to [facility] in [place] where he had surgeries there in the past. Past Medical History Cardiac Medical History: Reports: Congestive Heart Failure, DVT, Myocardial Infarction, Hyperlipidema, Hypertension, Peripheral Vascular Disease, Pulmonary Embolism Pulmonary Medical History: Reports: Asthma, Bronchitis, Chronic Obstructive Pulmonary Disease (COPD), Pneumonia, Sleep Apnea Denies: Tuberculosis Neurological Medical History: Denies: Seizures GI Medical History: Reports: Cirrhosis - Alcoholic, Gastroesophageal Reflux Disease, Hiatal Hernia Psychiatric Medical History: Denies: Depression Infectious Medical History: Reports: Methicillin-Resistant Staph Aureus, Vancomycin-Resistant Enterococci - Recurrent cellulitis of right lower extremity Past Surgical History Past Surgical History: Reports: Cardiac Catheterization - stent x1, Cholecystectomy, Herniorrhaphy - mesh, Orthopedic Surgery - multiple back, Tonsillectomy, Vascular Surgery - filter placed, pt unsure where, Other - He had ventral hernia followed by SBO at [facility] few years ago Denies: Appendectomy, Coronary Artery Bypass Graft, Gastric Bypass Surgery, Pacemaker Social History Smoking Status: Unknown if Ever Smoked Cigarettes Packs Per Day: 1.5 Frequency of Alcohol Use: Heavy - Drinks at least a sixpack of beers a day Hx Recreational Drug Use: No Drugs: None Hx Prescription Drug Abuse: No - Advance Directive Resuscitation Status: Full Code Family History Family History: COPD, Hypertension Parental Family History Reviewed: No Children Family History Reviewed: No Sibling(s) Family History Reviewed.: No Medication/Allergy Home Medications: Albuterol Sulfate [Ventolin HFA MDI 18 GM] 2 puff IH Q6HP PRN 04/22/17 Cholecalciferol (Vitamin D3) [Vitamin D3 5000 unit Capsule] 5,000 unit PO DAILY 04/22/17 Cyanocobalamin (Vitamin B-12) [Vitamin B-12] 500 mcg PO DAILY 04/22/17 Docusate Sodium [Dok] 100 mg PO BID 04/22/17 Fluticasone/Salmeterol [Advair 250-50 Diskus 28 dose] 1 inh IH Q12 04/22/17 Folic Acid 1 mg PO DAILY 04/22/17 Furosemide [Lasix 20 mg Tablet] 20 mg PO Q12 04/22/17 Hydroxyzine HCl [Atarax 10 mg Tablet] 10 mg PO TID 04/22/17 Loratadine [Claritin 10 mg Tablet] 10 mg PO DAILY 04/22/17 Melatonin 10 mg PO QHS 04/22/17 Mometasone Furoate [Nasonex] 1 spray NAREB Q12HP PRN 04/22/17 Montelukast Sodium [Singulair 10 mg Tablet] 10 mg PO QHS 04/22/17 Multivitamin [Tab-A-Bailey] 1 tab PO DAILY 04/22/17 Omeprazole 40 mg PO DAILY 04/22/17 Oxycodone HCl [Oxycodone HCl 10 MG Tablet] 10 mg PO Q6 04/22/17 Pregabalin [Lyrica] 150 mg PO Q8 04/22/17 Rivaroxaban [Xarelto] 20 mg PO DAILY 04/22/17 Tiotropium [place] [Spiriva Respimat] 4 gm IH BID 04/22/17 Tramadol HCl [Ultram 50 mg Tablet] 50 mg PO TIDP PRN 04/22/17 Trazodone HCl [Desyrel] 300 mg PO QHS 04/22/17 Vitamin B Complex 100 No.2 [B-100 Complex] 100 mg PO DAILY 04/22/17 Bifidobacterium Infantis [Align 4 mg Capsule] 1 cap PO BID #28 cap 04/26/17 Clindamycin HCl 300 mg PO Q6H #40 capsule 04/26/17 Allergies/Adverse Reactions: cephalexin monohydrate [From [employer]] Allergy (Intermediate, Verified 06/08/16 08 :54) codeine Allergy (Verified 06/08/16 08:54) morphine Allergy (Verified 06/08/16 08:54) Review of Systems Constitutional: PRESENT: other - Denies any chills or fever Nose, Mouth, and Throat: PRESENT: other - No hearing or visual problems and no sore throat Cardiovascular: PRESENT: other - Denies any chest pain Respiratory: PRESENT: cough, other - Admits to having occasional cough Gastrointestinal: PRESENT: as per HPI Genitourinary: PRESENT: other Musculoskeletal: PRESENT: back pain Integumentary: PRESENT: other - No rash Neurological: PRESENT: other - No vertigo or convulsions Endocrine: PRESENT: other - No polydipsia no polyuria Hematologic/Lymphatic: PRESENT: other - No easy bruisability or lymphadenopathy Physical Exam Vital Signs: Temp Pulse Resp BP Pulse Ox 99.0 F 92 18 95/67 L 94 08/22/17 20:35 08/22/17 20:35 08/22/17 21:15 08/22/17 21:01 08/22/17 21:01 General appearance: PRESENT: mild distress Head exam: PRESENT: atraumatic, normocephalic Eye exam: PRESENT: conjunctiva pink Ear exam: PRESENT: normal external ear exam Mouth exam: PRESENT: moist, tongue midline Neck exam: PRESENT: full ROM Respiratory exam: PRESENT: prolonged expiratory phas, rhonchi Cardiovascular exam: PRESENT: bradycardia Pulses: PRESENT: normal carotid pulses Vascular exam: PRESENT: normal capillary refill GI/Abdominal exam: PRESENT: soft, other - Has a reducible large ventral hernia with minimal tenderness Rectal exam: PRESENT: deferred Extremities exam: PRESENT: full ROM Musculoskeletal exam: PRESENT: full ROM Psychiatric exam: PRESENT: appropriate affect Skin exam: PRESENT: dry, normal color, warm Results Laboratory Results: 08/22/17 20:50 08/22/17 20:55 08/22/17 08/22/17 08/22/17 20:50 20:50 20:55 WBC 12.6 H RBC 4.34 L Hgb 13.8 Hct 40.2 MCV 92 MCH 31.7 MCHC 34.3 RDW 16.8 H Plt Count 210 Seg Neutrophils % 78.9 H Lymphocytes % 13.9 Monocytes % 6.4 Eosinophils % 0.6 Basophils % 0.2 Absolute Neutrophils 9.9 H Absolute Lymphocytes 1.7 Absolute Monocytes 0.8 Absolute Eosinophils 0.1 Absolute Basophils 0.0 Sodium 143.2 Potassium 3.5 L Chloride 101 Carbon Dioxide 30 Anion Gap 12 BUN 8 Creatinine 0.77 Est GFR ( Amer) > 60 Est GFR (Non-Af Amer) > 60 Glucose 129 H Lactic Acid 1.2 Calcium 9.8 Total Bilirubin 0.5 AST 30 ALT 34 Alkaline Phosphatase 89 Total Protein 8.2 Albumin 4.1 Lipase 33.5 Urine Color Urine Appearance Urine pH Ur Specific [place] Urine Protein Urine Glucose (UA) Urine Ketones Urine Blood Urine Nitrite Ur Leukocyte Esterase Urine WBC (Auto) Urine RBC (Auto) 08/22/17 22:31 WBC RBC Hgb Hct MCV MCH MCHC RDW Plt Count Seg Neutrophils % Lymphocytes % Monocytes % Eosinophils % Basophils % Absolute Neutrophils Absolute Lymphocytes Absolute Monocytes Absolute Eosinophils Absolute Basophils Sodium Potassium Chloride Carbon Dioxide Anion Gap BUN Creatinine Est GFR ( Amer) Est GFR (Non-Af Amer) Glucose Lactic Acid Calcium Total Bilirubin AST ALT Alkaline Phosphatase Total Protein Albumin Lipase Urine Color YELLOW Urine Appearance CLEAR Urine pH 6.0 Ur Specific [place] 1.044 Urine Protein NEGATIVE Urine Glucose (UA) NEGATIVE Urine Ketones NEGATIVE Urine Blood NEGATIVE Urine Nitrite NEGATIVE Ur Leukocyte Esterase TRACE H Urine WBC (Auto) 7 Urine RBC (Auto) 1 Impressions: Abdomen/Pelvis CT 08/22/17 20:33 IMPRESSION: Multiple loops of dilated proximal small bowel measuring up to 3.9 cm in diameter with mild adjacent mesenteric inflammatory changes and bowel wall thickening consistent with obstruction. A discrete Transition point is seen in the lower abdominal midline hernia, similar to the previous examination , this hernia measures approximately 13 cm in transverse dimension with a 4.3 cm transverse defect in the rectus sheath. Assessment & Plan - Time Time Spent: 50 to 70 Minutes - Plan Summary Plan Summary: Patient on Xarelto for DVT and took it this morning. His high risk for emergency surgery at this time. 2. History of end-stage lung disease since he uses oxygen at home. Unfortunately, he still smokes about 1-1/2 packs a day. 3. Has history of liver cirrhosis with varices. He still drinks at least 6 pack of beer a day. He claims he can stop smoking and drinking he lost his 16 years ago and he does not have any children. 4. Because of abdominal pains and evidence of small bowel obstruction on a CAT scan patient may need an emergency operation despite the hernia being reducible , the best place for him is in a tertiary hospital
[2017-08-22] MEDS ORDERED: MIDAZOLAM 2 MG/2 ML INJ ONE (23:53)
[2017-08-23 01:18] VITALS: BP 129/64
--- NOTE | 2017-08-23 01:20 | ER Document Report ---
Doctor's Note Notes: 08/23/17 01:19 Patient is being transferred for small bowel obstruction. Patient's transport team has arrived to take him to the receiving facility. He currently has no further complaints. NG tube is in place. His vital signs are stable. His heart rate is normal. His blood pressure is normal. Oxygen saturation is 94%. Patient's is stable for transfer.
== END 2017-08-23 01:35 | disposition short-term general hospital (02) ==
LOC: ER 20:20
DX: K56.609 Unspecified intestinal obstruction, unspecified as to partial versus complete obstruction (principal); R10.9 Unspecified abdominal pain; R11.2 Nausea with vomiting, unspecified
CPT/HCPCS: 99285; 36415; 83605; 83690; 85025; 80053; 81001; 74177; J2250 ×2; J1170; J7030

== ENCOUNTER → 2017-08-29 | Outpatient (CLI) | payer MEDICARE ==
--- NOTE | 2017-08-29 10:38 | RADIOLOGY REPORT (SQ) ---
EXAM DESCRIPTION: ANKLE LEFT COMPLETE COMPLETED DATE/TIME: 08/29/2017 9:37 am REASON FOR STUDY: NON PRESSSURE ULCER OF LEFT ANKLE L97.512 NON-PRS CHRONIC ULCER OTH PRT RIGHT HERNAN T W FAT LAYER COMPARISON: 10/22/2014 NUMBER OF VIEWS: Three views. TECHNIQUE: AP, lateral, and oblique radiographic images acquired of the left ankle. LIMITATIONS: None. FINDINGS: MINERALIZATION: Osteopenic BONES: No acute fracture or malalignment. Small avulsion fragment off the distal tip of the left fib josé. There is diffuse periosteal new bone formation along the distal 3rd of the left tibia and fibul a similar compared to 2013. This is likely related to chronic venous stasis JOINTS: No effusions. SOFT TISSUES: Diffuse soft tissue swelling. Artifact from an [employer] wrap over the ankle radiopaque oint ment within a medial soft tissue ulcer, at and distal to the level of the medial malleolus. OTHER: Small plantar calcaneal spur IMPRESSION: Diffuse soft tissue swelling with Kodak wrap in place. Radiopaque ointment in a medial so ft tissue ulcer. No soft tissue gas. No aggressive bony demineralization of the medial malleolus wo rrisome for osteomyelitis. Periosteal new bone along the distal 3rd of the tibia and fibula is similar compared to 2013 likely r elated to venous stasis TECHNICAL DOCUMENTATION: JOB ID: [id number] [employer]- All Rights Reserved
== END ==
LOC: OD 09:15
PROVIDERS: ATTEND Nurse Practitioner Family
DX: L97.512 Non-pressure chronic ulcer of other part of right foot with fat layer exposed (principal)

== ENCOUNTER → 2017-08-29 | Outpatient (CLI) | payer MEDICARE ==
[2017-08-29 09:24] LABS: ABSOLUTE EOSINOPHILS # (AUTO) 0.2 10^3/uL (0.0-0.6); ABSOLUTE LYMPHOCYTES (AUTO) 2.5 10^3/uL (0.5-4.7); ABSOLUTE MONOCYTES (AUTO) 1.2 10^3/uL (0.1-1.4); ABSOLUTE NEUT (AUTO) 6.4 10^3/uL (1.7-8.2); BASOPHILS % (AUTO) 0.2 % (0-2); EOSINOPHILS % (AUTO) 1.5 % (0-6); HEMATOCRIT 36.5 % (37.9-51.0); HEMOGLOBIN 12.7 g/dL (13.5-17.0); HGB HCT DIFFERENCE 1.6; LYMPHOCYTES % (AUTO) 24.4 % (13-45); MEAN CORPUSCULAR HGB CONC 34.8 g/dL (32.0-36.0); MEAN CORPUSCULAR VOLUME 92 fl (80-97); MONOCYTES % (AUTO) 11.7 % (3-13); RED BLOOD COUNT 3.96 10^6/uL (4.35-5.55); RED CELL DISTRIBUTION WIDTH 16.7 % (11.5-14.0); SEGMENTED NEUTROPHILS % (AUTO) 62.2 % (42-78); WHITE BLOOD COUNT 10.3 10^3/uL (4.0-10.5)
[2017-08-29 10:00] LABS: ALANINE AMINOTRANSFERASE 35 U/L (21-72); ALBUMIN 3.4 g/dL (3.5-5.0); ALKALINE PHOSPHATASE 80 U/L (38-126); ANION GAP 8 (5-19); ASPARTATE AMINO TRANSFERASE 27 U/L (17-59); BILIRUBIN,DIRECT 0.4 mg/dL (0.0-0.4); BILIRUBIN,TOTAL 0.4 mg/dL (0.2-1.3); BLOOD UREA NITROGEN 6 mg/dL (7-20); C-REACTIVE PROTEIN 46.5 mg/L (<10.0); CALCIUM 9.5 mg/dL (8.4-10.2); CARBON DIOXIDE 34 mmol/L (22-30); CHLORIDE 102 mmol/L (98-107); CREATININE RESULT 0.79 mg/dL (0.52-1.25); GLUCOSE 119 mg/dL (75-110); POTASSIUM 4.4 mmol/L (3.6-5.0); SODIUM 144.1 mmol/L (137-145); TOTAL PROTEIN 6.8 g/dL (6.3-8.2)
== END ==
LOC: OD 08:40
PROVIDERS: ATTEND Nurse Practitioner Family
DX: L97.322 Non-pressure chronic ulcer of left ankle with fat layer exposed (principal)
CPT/HCPCS: 36415; 80053; 85025; 85652; 86140

== ENCOUNTER → 2017-12-19 | Outpatient (CLI) | payer MEDICARE ==
--- NOTE | 2017-12-19 12:22 | RADIOLOGY REPORT (SQ) ---
EXAM DESCRIPTION: CT CHEST WITHOUT COMPLETED DATE/TIME: 12/19/2017 10:11 am REASON FOR STUDY: COUGH (R05), COPD (J44.9) R91.1 SOLITARY PULMONARY NODULE R05 COUGH COMPARISON: 2016. TECHNIQUE: CT scan performed of the chest without intravenous contrast. Images reviewed with lung, soft tissue and bone windows. Reconstructed coronal and sagittal MPR images reviewed. All images st ored on PACS. All CT scanners at this facility use dose modulation, iterative reconstruction, and/or weight based d osing when appropriate to reduce radiation dose to as low as reasonably achievable (ALARA). [facility]: Dose Right [facility]: CareDose [facility]: Dose Right [facility]: Teradose 4D [facility]: [employer] RADIATION DOSE: CT Rad equipment meets quality standard of care and radiation dose reduction techniq ues were employed. CTDIvol: 18.1 mGy. DLP: 695 mGy-cm. mGy. LIMITATIONS: No technical limitations. FINDINGS: LUNGS AND PLEURA: Mild right lower lobe subsegmental atelectasis. No developing nodules o r masses or infiltrates. Additional mild areas of subpleural scar. Mild upper lobe emphysema. HILAR AND MEDIASTINAL STRUCTURES: No identified masses or abnormal nodes. No obvious aneurysm. HEART AND VASCULAR STRUCTURES: Normal heart size. No pericardial effusion. Heavy coronary calcifica tion. Normal aortic caliber. UPPER ABDOMEN: Probable splenules in the left upper quadrant, incompletely assessed but grossly stabl e. There are adjacent surgical clips. The spleen is not otherwise demonstrated. THYROID AND OTHER SOFT TISSUES: No masses. No adenopathy. BONES: Osteopenia with old rib fractures and mild chronic spine compression deformities. HARDWARE: None in the chest. OTHER: Prominent varices, presumed collateral vessels throughout the anterior chest subcutaneous tiss ues. Chronic. Presumably related to veno-occlusive disease. IMPRESSION: 1. No acute cardiopulmonary disease. Findings as above. Specifically no evidence of d eveloping infiltrate or mass. TECHNICAL DOCUMENTATION: JOB ID: [id number] Quality ID # [id number]: Final reports with documentation of one or more dose reduction techniques (e.g., Au tomated exposure control, adjustment of the mA and/or kV according to patient size, use of iterative reconstruction technique) 2010 [employer]- All Rights Reserved
== END ==
LOC: RAD 09:46
PROVIDERS: ATTEND Internal Medicine Critical Care Medicine
DX: J44.9 Chronic obstructive pulmonary disease, unspecified (principal); R06.09 Other forms of dyspnea; R05 Cough; K74.60 Unspecified cirrhosis of liver; R53.83 Other fatigue; R09.02 Hypoxemia; G47.33 Obstructive sleep apnea (adult) (pediatric); J18.9 Pneumonia, unspecified organism; I26.99 Other pulmonary embolism without acute cor pulmonale
CPT/HCPCS: 71250

== ENCOUNTER 2018-06-06 22:24 | Inpatient (IN) | payer MEDICARE ==
--- NOTE | 2018-06-06 23:03 | ER Document Report ---
ED General - General Mode of Arrival: Ambulatory Information source: Patient TRAVEL OUTSIDE OF THE [place] IN LAST 30 DAYS: No <ALEX GRIDER - Last Filed: 06/06/18 23:11> <NIKOS HENRIQUEZ - Last Filed: 06/06/18 23:42> - General Chief Complaint: Edema Stated Complaint: RIGHT LEG SWELLING Time Seen by Provider: 06/06/18 22:45 Notes: Patient is a 62 year old male with COPD, CAD, GERD, sleep apnea and a history of recurrent cellulitis of the lower extremities and chronic edema to the bilateral lower extremities presents to the emergency department complaining of right leg swelling onset 3 days ago. Patient states the swelling has worsened in his right leg progressing above his knee when it is normally isolated below the right knee. Patient states he no longer reports to the wound care clinic and receives treatment at home. Patient also reports some fevers. Patient is normally on 3L of oxygen at home. (ALEX GRIDER) - Related Data Allergies/Adverse Reactions: cephalexin monohydrate [From [employer]] Allergy (Intermediate, Verified 06/08/16 08 :54) codeine Allergy (Verified 06/08/16 08:54) morphine Allergy (Verified 06/08/16 08:54) Past Medical History - General Information source: Patient - Social History Smoking Status: Current Every Day Smoker Chew tobacco use (# tins/day): No Frequency of alcohol use: None Drug Abuse: None Family History: COPD, Hypertension Patient has suicidal ideation: No Patient has homicidal ideation: No - Past Medical History Cardiac Medical History: Reports: Hx Congestive Heart Failure, Hx DVT, Hx Heart Attack, Hx Hypercholesterolemia, Hx Hypertension, Hx Peripheral Vascular Disease , Hx Pulmonary Embolism Pulmonary Medical History: Reports: Hx Asthma, Hx Bronchitis, Hx COPD, Hx Pneumonia, Hx Sleep Apnea GI Medical History: Reports: Hx Cirrhosis - Alcoholic, Hx Gastroesophageal Reflux Disease, Hx Hiatal Hernia, Hx Ulcer Infectious Medical History: Reports: Hx MRSA, 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 Past Surgical History: Reports: Hx Abdominal Surgery - umbilical hernia repair, sandy fundoplication, Hx Cardiac Catheterization - stent x1, Hx Cholecystectomy , Hx Herniorrhaphy - mesh, Hx Oral Surgery, Hx Orthopedic Surgery - multiple back, Hx Tonsillectomy, Hx Vascular Surgery - filter placed, pt unsure where, Other - He had ventral hernia followed by SBO at [facility] few years ago - Immunizations Hx Diphtheria, Pertussis, Tetanus Vaccination: Yes Hx Pneumococcal Vaccination: 03/25/13 <CHEOALEX WHITNEY - Last Filed: 06/06/18 23:11> Review of Systems - Review of Systems Constitutional: No symptoms reported EENT: No symptoms reported Cardiovascular: No symptoms reported Respiratory: No symptoms reported Gastrointestinal: No symptoms reported Genitourinary: No symptoms reported Male Genitourinary: No symptoms reported Musculoskeletal: See HPI, Leg swelling Skin: See HPI Hematologic/Lymphatic: No symptoms reported -: Yes All other systems reviewed and negative <CHEO,TAMCARLOS - Last Filed: 06/06/18 23:11> Physical Exam <CHEO,TAMCARLOS - Last Filed: 06/06/18 23:11> <NIKOS HENRIQUEZ - Last Filed: 06/06/18 23:42> - Vital signs Vitals: Temp Pulse Resp BP Pulse Ox 98.9 F 99 18 131/71 H 92 06/06/18 22:25 06/06/18 22:25 06/06/18 22:25 06/06/18 22:25 06/06/18 22:25 - Notes Notes: GENERAL: Alert, interacts well. No acute distress. HEAD: Normocephalic, atraumatic. EYES: Pupils equal, round, and reactive to light. Extraocular movements intact. ENT: Oral mucosa moist, tongue midline. NECK: Full range of motion. Supple. Trachea midline. LUNGS: Tachypneic, 95% on 3L of oxygen. Rhonchi. No respiratory distress. HEART: Regular rate and rhythm. No murmurs, gallops, or rubs. ABDOMEN: Soft, morbidly obese. Non-distended. Bowel sounds present in all 4 quadrants. EXTREMITIES: Moves all extremities spontaneously. Pitting edema to the left lower extremity up to the left medial thigh consistent with patient's history. Pitting edema and anasarca erythema to the right lower extremity extending to the medial thigh and posterior lateral thigh extending to hip, none anteriorly, warm and tender to palpation. Foot swollen bilaterally, can not see definition in toes, reports this is chronic. NEUROLOGICAL: Alert and oriented x3. Normal speech. PSYCH: Normal affect, normal mood. SKIN: Warm, dry, normal turgor. No rashes or lesions noted. (ALEX GRIDER) Course - Laboratory Result Diagrams: 06/06/18 22:32 06/06/18 22:32 <ALEX GRIDER - Last Filed: 06/06/18 23:11> - Laboratory Result Diagrams: 06/06/18 22:32 06/06/18 22:32 - EKG Interpretation by Ok EKG shows normal: Sinus rhythm, [place], QRS Complexes, ST-T Waves. abnormal: Intervals - Borderline prolonged QT interval Rate: Normal - 97 Rhythm: NSR When compared to previous EKG there are: No significant change - Consults Dr. Mohan Time consulted: 23:25 Consulted provider: will come to ER <NIKOS HENRIQUEZ - Last Filed: 06/06/18 23:42> - Vital Signs Vital signs: Temp Pulse Resp BP Pulse Ox 98.9 F 99 18 131/71 H 92 06/06/18 22:25 06/06/18 22:25 06/06/18 22:25 06/06/18 22:25 06/06/18 22:25 - Laboratory Laboratory results interpreted by me: 06/06/18 06/06/18 22:32 22:32 RBC 3.82 L Hgb 11.5 L Hct 34.1 L RDW 19.8 H Potassium 3.5 L Albumin 2.9 L Discharge <ALEX GRIDER - Last Filed: 06/06/18 23:11> - Discharge Admitting Provider: Hospitalist Unit Admitted: Medical Floor <NIKOS HENRIQUEZ - Last Filed: 06/06/18 23:42> - Discharge Clinical Impression: Cellulitis of both lower extremities, Lymphedema, Opiate dependence, continuous , retirement current use of anticoagulant therapy, Supplemental oxygen dependent Alcohol dependency Qualifiers: Substance use status: unspecified alcohol-induced disorder Qualified Code(s): F10.29 - Alcohol dependence with unspecified alcohol-induced disorder COPD (chronic obstructive pulmonary disease) Qualifiers: COPD type: unspecified COPD Qualified Code(s): J44.9 - Chronic obstructive pulmonary disease, unspecified Condition: Stable Disposition: ADMITTED INPATIENT Referrals: DAVID WARNER MD [ACTIVE STAFF] - Follow up as needed Scribe Attestation: 06/06/18 23:27 I personally performed the services described in the documentation, reviewed and edited the documentation which was dictated to the scribe in my presence, and it accurately records my words and actions. (NIKOS HENRIQUEZ) Scribe Documentation - Scribe Written by Becky:: Becky Foley, 06/06/2018 23:14 acting as scribe for :: Onelia <ALEX GRIDER - Last Filed: 06/06/18 23:11>
[2018-06-06 23:09] LABS: ABSOLUTE BASOPHILS # (AUTO) 0.1 10^3/uL (0.0-0.2); ABSOLUTE EOSINOPHILS # (AUTO) 0.2 10^3/uL (0.0-0.6); ABSOLUTE LYMPHOCYTES (AUTO) 2.5 10^3/uL (0.5-4.7); ABSOLUTE MONOCYTES (AUTO) 0.7 10^3/uL (0.1-1.4); ABSOLUTE NEUT (AUTO) 5.1 10^3/uL (1.7-8.2); BASOPHILS % (AUTO) 0.9 % (0-2); HEMATOCRIT 34.1 % (37.9-51.0); HEMOGLOBIN 11.5 g/dL (13.5-17.0); LYMPHOCYTES % (AUTO) 29.3 % (13-45); MEAN CORPUSCULAR HEMOGLOBIN 30.2 pg (27.0-33.4); MEAN CORPUSCULAR HGB CONC 33.8 g/dL (32.0-36.0); MEAN CORPUSCULAR VOLUME 89 fl (80-97); MONOCYTES % (AUTO) 8.4 % (3-13); PLATELET COUNT 290 10^3/uL (150-450); RED BLOOD COUNT 3.82 10^6/uL (4.35-5.55); RED CELL DISTRIBUTION WIDTH 19.8 % (11.5-14.0); SEGMENTED NEUTROPHILS % (AUTO) 59.4 % (42-78); TOTAL CELLS COUNTED % (AUTO) 100 %; WHITE BLOOD COUNT 8.6 10^3/uL (4.0-10.5)
[2018-06-06 23:13] LABS: ALANINE AMINOTRANSFERASE 33 U/L (21-72); ALBUMIN 2.9 g/dL (3.5-5.0); ALCOHOL 52 mg/dL (NONE DETECTED); ALKALINE PHOSPHATASE 116 U/L (38-126); ANION GAP 10 (5-19); ASPARTATE AMINO TRANSFERASE 42 U/L (17-59); BILIRUBIN,DIRECT 0.3 mg/dL (0.0-0.4); BILIRUBIN,TOTAL 0.5 mg/dL (0.2-1.3); BLOOD UREA NITROGEN 8 mg/dL (7-20); CALCIUM 8.8 mg/dL (8.4-10.2); CARBON DIOXIDE 27 mmol/L (22-30); CHLORIDE 103 mmol/L (98-107); CREATINE KINASE 77 U/L (55-170); GLUCOSE 99 mg/dL (75-110); POTASSIUM 3.5 mmol/L (3.6-5.0); SODIUM 140.3 mmol/L (137-145); TOTAL PROTEIN 7.1 g/dL (6.3-8.2)
[2018-06-07 00:02] LABS: NT PRO BNP 133 pg/mL (5-900)
[2018-06-07 00:03] LABS: TROPONIN I < 0.012 ng/mL
[2018-06-07] MEDS ORDERED: PROMETHAZINE HCL INJ 25 MG/1 ML VIAL IV PRN (02:57)
[2018-06-07] MEDS ORDERED: MAG HYDROX/AL HYDROX/SIMETH SUSP 30 ML UDCUP PO PRN (02:57)
[2018-06-07] MEDS ORDERED: FUROSEMIDE INJ/PF 40 MG/4 ML SDV IV ONE (03:03)
[2018-06-07] MEDS ORDERED: VANCOMYCIN HCL 0 MG in DEXTROSE 5%-WATER 250 ML IV NR (03:15)
[2018-06-07] MEDS ORDERED: VANCOMYCIN HCL INJ 1000 MG VIAL IV PRN (03:20)
[2018-06-07] MEDS ORDERED: AMMONIA INHALANTS 10 AMPUL/BOX IH ONE (03:24)
[2018-06-07] MEDS: HYDROMORPHONE HCL INJ/PF 2 MG/ML AMPULE IV PRN ×4 (03:31→21:43)
[2018-06-07] MEDS: IPRATROPIUM/ALBUTEROL 0.5-2.5 MG/3 ML AMPUL NEB PRN ×3 (03:46→20:23)
[2018-06-07] MEDS ORDERED: VANCOMYCIN HCL 2,000 MG in DEXTROSE 5%-WATER 500 ML IV ONE (04:00)
[2018-06-07 05:40] LABS: ABSOLUTE BASOPHILS # (AUTO) 0.1 10^3/uL (0.0-0.2); ABSOLUTE EOSINOPHILS # (AUTO) 0.2 10^3/uL (0.0-0.6); ABSOLUTE LYMPHOCYTES (AUTO) 2.9 10^3/uL (0.5-4.7); ABSOLUTE MONOCYTES (AUTO) 0.9 10^3/uL (0.1-1.4); ABSOLUTE NEUT (AUTO) 5.3 10^3/uL (1.7-8.2); BASOPHILS % (AUTO) 0.8 % (0-2); EOSINOPHILS % (AUTO) 2.3 % (0-6); HEMATOCRIT 32.8 % (37.9-51.0); HEMOGLOBIN 11.1 g/dL (13.5-17.0); LYMPHOCYTES % (AUTO) 31.1 % (13-45); MEAN CORPUSCULAR HEMOGLOBIN 29.9 pg (27.0-33.4); MEAN CORPUSCULAR HGB CONC 33.7 g/dL (32.0-36.0); MEAN CORPUSCULAR VOLUME 89 fl (80-97); MONOCYTES % (AUTO) 9.7 % (3-13); PLATELET COUNT 284 10^3/uL (150-450); RED CELL DISTRIBUTION WIDTH 19.4 % (11.5-14.0); SEGMENTED NEUTROPHILS % (AUTO) 56.1 % (42-78); TOTAL CELLS COUNTED % (AUTO) 100 %; WHITE BLOOD COUNT 9.4 10^3/uL (4.0-10.5)
--- NOTE | 2018-06-07 05:50 | PDOC H&P ---
History of Present Illness Admission Date/PCP: 06/07/18 23:47 MEETA COWAN Patient complains of: Right leg swelling History of Present Illness: ANALY NEVAREZ is a 62 year old male with history of chronic bilateral lower extremities lymphedema with recurrent cellulitis, chronic respiratory failure on 3 L oxygen at home, well-known to the hospitalist service. He also has a history of peripheral arterial disease. Patient presented to the emergency department complaining of right leg swelling onset 3 days ago. Patient states the swelling has worsened in his right leg progressing above his knee to his thighs which is unusual for him. Patient also has noticed erythema above his knee which is unusual with some warmth. Complains of pain up to 10/10 intensity in that leg. Denies any secretions on the right lower extremity. Denies fever, chills, nausea, vomiting, abdominal pain, changes in his urine or his bowel movements. History of opiate dependence asking for Dilaudid in the ED. Past Medical History Cardiac Medical History: Reports: Congestive Heart Failure, DVT, Myocardial Infarction, Hyperlipidema, Hypertension, Peripheral Vascular Disease, Pulmonary Embolism Pulmonary Medical History: Reports: Asthma, Bronchitis, Chronic Obstructive Pulmonary Disease (COPD), Pneumonia, Sleep Apnea Denies: Tuberculosis Neurological Medical History: Denies: Seizures GI Medical History: Reports: Cirrhosis - Alcoholic, Gastroesophageal Reflux Disease, Hiatal Hernia Psychiatric Medical History: Denies: Depression Infectious Medical History: Reports: Methicillin-Resistant Staph Aureus, Vancomycin-Resistant Enterococci - Recurrent cellulitis of right lower extremity Past Surgical History Past Surgical History: Reports: Cardiac Catheterization - stent x1, Cholecystectomy, Herniorrhaphy - mesh, Orthopedic Surgery - multiple back, Tonsillectomy, Vascular Surgery - filter placed, pt unsure where, Other - He had ventral hernia followed by SBO at [facility] few years ago Denies: Appendectomy, Coronary Artery Bypass Graft, Gastric Bypass Surgery, Pacemaker Social History Smoking Status: Current Every Day Smoker Frequency of Alcohol Use: Heavy - Drinks at least a sixpack of beers a day Hx Recreational Drug Use: No Drugs: None Hx Prescription Drug Abuse: No Family History Family History: COPD, Hypertension Parental Family History Reviewed: No Children Family History Reviewed: NA Sibling(s) Family History Reviewed.: NA Medication/Allergy Home Medications: Albuterol Sulfate [Ventolin HFA MDI 18 GM] 2 puff IH Q6HP PRN 04/22/17 Cholecalciferol (Vitamin D3) [Vitamin D3 5000 unit Capsule] 5,000 unit PO DAILY 04/22/17 Cyanocobalamin (Vitamin B-12) [Vitamin B-12] 500 mcg PO DAILY 04/22/17 Docusate Sodium [Dok] 100 mg PO BID 04/22/17 Fluticasone/Salmeterol [Advair 250-50 Diskus 28 dose] 1 inh IH Q12 04/22/17 Folic Acid 1 mg PO DAILY 04/22/17 Furosemide [Lasix 20 mg Tablet] 20 mg PO Q12 04/22/17 Hydroxyzine HCl [Atarax 10 mg Tablet] 10 mg PO TID 04/22/17 Loratadine [Claritin 10 mg Tablet] 10 mg PO DAILY 04/22/17 Melatonin 10 mg PO QHS 04/22/17 Mometasone Furoate [Nasonex] 1 spray NAREB Q12HP PRN 04/22/17 Montelukast Sodium [Singulair 10 mg Tablet] 10 mg PO QHS 04/22/17 Multivitamin [Tab-A-Bailey] 1 tab PO DAILY 04/22/17 Omeprazole 40 mg PO DAILY 04/22/17 Oxycodone HCl [Oxycodone HCl 10 MG Tablet] 10 mg PO Q6 04/22/17 Pregabalin [Lyrica] 150 mg PO Q8 04/22/17 Rivaroxaban [Xarelto] 20 mg PO DAILY 04/22/17 Tiotropium [place]son [Spiriva Respimat] 4 gm IH BID 04/22/17 Tramadol HCl [Ultram 50 mg Tablet] 50 mg PO TIDP PRN 04/22/17 Trazodone HCl [Desyrel] 300 mg PO QHS 04/22/17 Vitamin B Complex 100 No.2 [B-100 Complex] 100 mg PO DAILY 04/22/17 Bifidobacterium Infantis [Align 4 mg Capsule] 1 cap PO BID #28 cap 04/26/17 Clindamycin HCl 300 mg PO Q6H #40 capsule 04/26/17 Allergies/Adverse Reactions: cephalexin monohydrate [From Keflex] Allergy (Intermediate, Verified 06/08/16 08 :54) codeine Allergy (Verified 06/08/16 08:54) morphine Allergy (Verified 06/08/16 08:54) Review of Systems Review of Systems: As outlined in the HPI, all others negative Physical Exam Vital Signs: Temp Pulse Resp BP Pulse Ox 98.9 F 99 19 119/69 91 L 06/06/18 22:25 06/06/18 22:25 06/07/18 05:02 06/07/18 05:02 06/07/18 05:02 Additional comments: General appearance: Morbidly obese, alert and cooperative, and appears to be in acute distress secondary to his lower extremities edema. Head: Normocephalic Eyes: PEERL, EOMI, vision is grossly intact. Ears: External auditory canal and tympanic membranes clear, hearing grossly intact. Nose: No nasal discharge. Throat: Oral cavity and pharynx normal. No inflammation, swelling, exudate or lesions. Neck: Neck supple, nontender without lymphadenopathy, masses or thyromegaly. Cardiac: Normal S1 and S2. No S3, S4 or murmurs. Rhythm is regular. There is no cyanosis or pallor. Capillary refill is less than 2 seconds. No carotid bruits. Lungs: Bilateral diminished breath sounds, diffuse expiratory wheezing, do not appreciate rhonchi, diffused crackles. Not using accessory muscles. Abdomen: Positive bowel sounds. Soft. Nondistended, nontender. No guarding or rebound. No masses. No hepatosplenomegaly Extremities: Bilateral lower extremities lymphedema, 3+ edema in the right lower extremity with erythema extending to the mid tight with erythema and warmth, tender to palpation. Both feet with 3+ edema and erythema, toes area seem peeling but is not new. Left lower extremity also with severe edema but less than the right. Neurological: Cranial nerves II through XII grossly intact. Difficult evaluation of his strength and sensation to go to his morbid obesity and lymphedema Skin: Lateral lower extremities as per above, breast normal texture and turgor with no other lesions or eruptions, warm and dry. Psychiatric: The mental examination revealed the patient was oriented to person , place, and time. The patient was able to demonstrate good judgment on recent , without hallucinations, abnormal affect or abnormal behaviors. Results Laboratory Results: 06/06/18 06/06/18 22:32 22:32 WBC 8.6 RBC 3.82 L Hgb 11.5 L Hct 34.1 L MCV 89 MCH 30.2 MCHC 33.8 RDW 19.8 H Plt Count 290 Seg Neutrophils % 59.4 Lymphocytes % 29.3 Monocytes % 8.4 Eosinophils % 2.0 Basophils % 0.9 Absolute Neutrophils 5.1 Absolute Lymphocytes 2.5 Absolute Monocytes 0.7 Absolute Eosinophils 0.2 Absolute Basophils 0.1 Sodium 140.3 Potassium 3.5 L Chloride 103 Carbon Dioxide 27 Anion Gap 10 BUN 8 Creatinine 0.81 Est GFR ( Amer) > 60 Est GFR (Non-Af Amer) > 60 Glucose 99 Calcium 8.8 Magnesium 1.8 Total Bilirubin 0.5 Direct Bilirubin 0.3 AST 42 ALT 33 Alkaline Phosphatase 116 Creatine Kinase 77 Total Protein 7.1 Albumin 2.9 L Serum Alcohol 52 Assessment & Plan - Diagnosis (1) Cellulitis of both lower extremities Is this a current diagnosis for this admission?: Yes Plan: Patient with recurrent lower extremity cellulitis, right more than left. Patient has history of MRSA. Will place the patient on IV vancomycin. Please follow blood cultures. (2) Lymphedema Is this a current diagnosis for this admission?: Yes Plan: Elevation of lower extremities, when tolerated use of Kodak wrap to prevent further edema. (3) Opiate dependence, continuous Is this a current diagnosis for this admission?: Yes Plan: Patient tells me that he is on opiates at home and is requesting high-dose of IV medication for his lower extremities pain. At home on Lyrica and oxycodone. Follows in the pain clinic. (4) Chronic respiratory failure with hypoxia, on home O2 therapy Is this a current diagnosis for this admission?: Yes Plan: Chronic respiratory failure on home oxygen 3 L. His respiratory status is at baseline. Continue home bronchodilators. (5) Obesity, Class III, BMI 40-49.9 (morbid obesity) Is this a current diagnosis for this admission?: Yes Plan: Lifestyle modification (6) Alcohol dependency Qualifiers: Substance use status: unspecified alcohol-induced disorder Qualified Code(s ): F10.29 - Alcohol dependence with unspecified alcohol-induced disorder Is this a current diagnosis for this admission?: Yes Plan: Patient continues to drink alcohol, serum alcohol level is 52 in the ED. Watch for alcohol withdrawal and/or DTs (7) CAD (coronary artery disease) Qualifiers: Coronary Disease-Associated Artery/Lesion type: [place] artery [place] vs. transplanted heart: [place] heart Associated angina: without angina Qualified Code(s): I25.10 - Atherosclerotic heart disease of [place] coronary artery without angina pectoris Is this a current diagnosis for this admission?: Yes Plan: Denies any cardiac symptomatology. Continue home medications (8) RONIT (obstructive sleep apnea) Is this a current diagnosis for this admission?: Yes Plan: Continue with CPAP (9) History of DVT (deep vein thrombosis) Is this a current diagnosis for this admission?: Yes Plan: Continue with Xarelto. - Time Time Spent: 30 to 50 Minutes - Inpatient Certification Based on my medical assessment, after consideration of the patient's comorbidities, presenting symptoms, or acuity I expect that the services needed warrant INPATIENT care.: Yes I certify that my determination is in accordance with my understanding of Medicare's requirements for reasonable and necessary INPATIENT services [42 CFR 412.3e].: Yes Medical Necessity: Need for IV Antibiotics
[2018-06-07] MEDS ORDERED: HEPARIN SOD (PORCINE) 5,000 UNIT/ML 1 ML SYRINGE SUBCUT SCH (06:00)
[2018-06-07 06:01] LABS: ANION GAP 7 (5-19); BLOOD UREA NITROGEN 9 mg/dL (7-20); CALCIUM 8.6 mg/dL (8.4-10.2); CARBON DIOXIDE 32 mmol/L (22-30); CHLORIDE 103 mmol/L (98-107); GLUCOSE 141 mg/dL (75-110); PHOSPHORUS 3.7 mg/dL (2.5-4.5); POTASSIUM 3.3 mmol/L (3.6-5.0); SODIUM 142.1 mmol/L (137-145)
[2018-06-07] MEDS: RIVAROXABAN 15 MG TABLET PO SCH ×2 (07:51→18:19)
--- NOTE | 2018-06-07 07:52 | EKG REPORT ---
SEVERITY:- BORDERLINE ECG - BORDERLINE PROLONGED QT INTERVAL SINUS RHYTHM : Confirmed by: Danay Hutton MD 07-Jun-2018 07:51:34
[2018-06-07] MEDS ORDERED: LORAZEPAM INJ 2 MG/1 ML VIAL IV PRN (15:12)
--- NOTE | 2018-06-07 16:38 | Progress Note ---
Provider Note Provider Note: HUSSAIN NEVAREZ is a 62 year old male with history of chronic bilateral lower extremities lymphedema with recurrent cellulitis, chronic respiratory failure on 3 L oxygen at home, well-known to the hospitalist service. Patient has a long-standing history of alcohol dependency is heavy drinker. Prevent alcohol withdrawal I started him on Ativan 2 mg IV every 12 hours and scheduled diazepam 10 mg every 6 hours. Accept this patient and I will be his primary attending.
[2018-06-07] MEDS: DIAZEPAM 5 MG TABLET PO SCH (17:00)
[2018-06-07] MEDS: VANCOMYCIN HCL 2,000 MG in DEXTROSE 5%-WATER 500 ML IV SCH (18:20)
[2018-06-07] MEDS: TEMAZEPAM 15 MG CAPSULE PO PRN (21:44)
[2018-06-08] MEDS: HYDROMORPHONE HCL INJ/PF 2 MG/ML AMPULE IV PRN ×6 (02:00→21:42)
[2018-06-08] MEDS: DIAZEPAM 5 MG TABLET PO SCH ×4 (02:03→17:03)
[2018-06-08] MEDS: VANCOMYCIN HCL 2,000 MG in DEXTROSE 5%-WATER 500 ML IV SCH ×2 (04:36→17:00)
[2018-06-08] MEDS: IPRATROPIUM/ALBUTEROL 0.5-2.5 MG/3 ML AMPUL NEB PRN ×3 (05:41→19:36)
[2018-06-08] MEDS: RIVAROXABAN 15 MG TABLET PO SCH ×2 (08:56→17:00)
[2018-06-08] MEDS ORDERED: FENTANYL 75 MCG/HR PATCH.TD72 TD SCH (13:15)
--- NOTE | 2018-06-08 13:16 | PDOC PROGRESS REPORT ---
Subjective Progress Note for:: 06/08/18 Subjective:: HUSSAIN NEVAREZ is a 62 year old male with history of chronic bilateral lower extremities lymphedema with recurrent cellulitis, chronic respiratory failure on 3 L oxygen at home, well-known to the hospitalist service. Patient has multiple admission to this hospital for the same complaint. Since patient has underlying lymphedema and venous stasis this is a recurrent cellulitis I think will continue. Currently patient has been on vancomycin. His blood cultures negative so far. I seen patient lying in bed comfortable complaining of pain on both legs. He has been on Dilaudid tablets did not help him. I started him on fentanyl patch 75 Mahamed every 72 hours. Reason For Visit: LOWER EXTREMITIES CELLULITIS Physical Exam Vital Signs: Temp Pulse Resp BP Pulse Ox 98.2 F 89 18 124/69 96 06/08/18 08:47 06/08/18 12:26 06/08/18 12:26 06/08/18 08:47 06/08/18 12:26 Intake & Output 06/07/18 06/08/18 06/09/18 06:59 06:59 06:59 Intake Total 500 944 Output Total 600 750 Balance -100 194 Weight 130.9 kg General appearance: PRESENT: mild distress Head exam: PRESENT: atraumatic Eye exam: PRESENT: conjunctiva pink Neck exam: ABSENT: carotid bruit, JVD, lymphadenopathy, thyromegaly Respiratory exam: PRESENT: clear to auscultation lui. ABSENT: rales, rhonchi, wheezes Cardiovascular exam: PRESENT: RRR. ABSENT: diastolic murmur, rubs, systolic murmur GI/Abdominal exam: PRESENT: normal bowel sounds, soft. ABSENT: distended, guarding, mass, organolmegaly, rebound, tenderness Extremities exam: PRESENT: other - Bilateral lymphedema with superimposed cellulitis Results Laboratory Results: 06/07/18 05:22 06/07/18 05:22 Assessment & Plan - Diagnosis (1) Bilateral lower leg cellulitis Is this a current diagnosis for this admission?: Yes Plan: Patient has been on vancomycin. (2) Lymphedema Is this a current diagnosis for this admission?: Yes Plan: Supportive treatment (3) Opiate dependence, continuous Is this a current diagnosis for this admission?: Yes Plan: Very difficult on this patient from opiates. Because of ongoing pain (4) Chronic respiratory failure with hypoxia, on home O2 therapy Is this a current diagnosis for this admission?: Yes Plan: Due to COPD. Continue bronchodilator. (5) Alcohol dependency Qualifiers: Substance use status: unspecified alcohol-induced disorder Qualified Code(s ): F10.29 - Alcohol dependence with unspecified alcohol-induced disorder Is this a current diagnosis for this admission?: Yes Plan: Patient's other alcohol withdrawal protocol.
[2018-06-08 16:39] LABS: VANCOMYCIN,TROUGH 18.4 ug/mL (5.0-20.0)
[2018-06-09] MEDS: IPRATROPIUM/ALBUTEROL 0.5-2.5 MG/3 ML AMPUL NEB PRN ×2 (01:21→05:42)
[2018-06-09] MEDS: HYDROMORPHONE HCL INJ/PF 2 MG/ML AMPULE IV PRN ×6 (01:35→21:39)
[2018-06-09] MEDS: DIAZEPAM 5 MG TABLET PO SCH ×5 (01:36→23:10)
[2018-06-09] MEDS: VANCOMYCIN HCL 2,000 MG in DEXTROSE 5%-WATER 500 ML IV SCH ×2 (04:48→16:09)
[2018-06-09] MEDS: RIVAROXABAN 15 MG TABLET PO SCH ×2 (08:18→17:48)
[2018-06-09] MEDS: IPRATROPIUM/ALBUTEROL 0.5-2.5 MG/3 ML AMPUL NEB SCH ×2 (14:21→20:02)
[2018-06-10] MEDS: IPRATROPIUM/ALBUTEROL 0.5-2.5 MG/3 ML AMPUL NEB SCH ×4 (01:55→20:21)
[2018-06-10] MEDS: HYDROMORPHONE HCL INJ/PF 2 MG/ML AMPULE IV PRN ×5 (01:59→19:34)
[2018-06-10] MEDS: DIAZEPAM 5 MG TABLET PO SCH ×3 (06:27→17:25)
[2018-06-10] MEDS: RIVAROXABAN 15 MG TABLET PO SCH ×2 (08:30→17:25)
[2018-06-10] MEDS: VANCOMYCIN HCL 2,000 MG in DEXTROSE 5%-WATER 500 ML IV SCH ×2 (08:32→21:35)
[2018-06-10] MEDS ORDERED: POTASSIUM CHLORIDE 10 MEQ CAPSULE.ER PO ONE (10:30)
[2018-06-10] MEDS: FENTANYL 100 MCG/HR PATCH.TD72 TD SCH (11:49)
[2018-06-10] MEDS ORDERED: (PENDING PHARMACY ID) (Tiotropium Bromide [Spiriva Respimat] 2 PUFF) IH SCH (13:30)
[2018-06-10] MEDS ORDERED: (PENDING PHARMACY ID) (Mometasone Furoate [Nasonex] 1 SPRAY) NS SCH ×2 (13:30→22:00)
[2018-06-10] MEDS ORDERED: PREGABALIN 100 MG CAPSULE PO SCH (14:00)
[2018-06-10] MEDS ORDERED: B LONGUM PO SCH (14:00)
[2018-06-10] MEDS ORDERED: VITAMIN B COMPLEX PO SCH (14:00)
[2018-06-10] MEDS ORDERED: B LACTIS PO SCH (14:00)
[2018-06-10] MEDS ORDERED: ACIDOPHIL PO SCH (14:00)
[2018-06-10] MEDS ORDERED: (PENDING PHARMACY ID) (Naloxegol Oxalate [Movantik] 25 MG) PO SCH (14:00)
[2018-06-10] MEDS: PREGABALIN 75 MG CAPSULE PO SCH ×2 (15:21→21:38)
--- NOTE | 2018-06-10 17:05 | PDOC PROGRESS REPORT ---
Subjective Progress Note for:: 06/10/18 Subjective:: Patient still complains of right leg pain extending to his thigh. Since patient has history of opiate dependence I think is appropriate to increase the dose of his fentanyl patch from 75 Mahamed 200 Mahamed every 72 hours. No fever, nausea, vomiting or diarrhea. He eats well and tolerates well. Reason For Visit: LOWER EXTREMITIES CELLULITIS Physical Exam Vital Signs: Temp Pulse Resp BP Pulse Ox 97.8 F 92 21 H 128/83 H 94 06/10/18 15:57 06/10/18 15:57 06/10/18 15:57 06/10/18 15:57 06/10/18 15:57 Intake & Output 06/09/18 06/10/18 06/11/18 06:59 06:59 06:59 Intake Total 1480 2854 500 Output Total 1050 1800 Balance 430 1054 500 Weight 130.8 kg General appearance: PRESENT: no acute distress Head exam: PRESENT: atraumatic Eye exam: PRESENT: conjunctiva pink Mouth exam: PRESENT: moist Neck exam: ABSENT: carotid bruit, JVD, lymphadenopathy, thyromegaly Respiratory exam: PRESENT: clear to auscultation lui. ABSENT: rales, rhonchi, wheezes Cardiovascular exam: PRESENT: RRR. ABSENT: diastolic murmur, rubs, systolic murmur GI/Abdominal exam: PRESENT: normal bowel sounds, soft. ABSENT: distended, guarding, mass, organolmegaly, rebound, tenderness Extremities exam: PRESENT: full ROM. ABSENT: calf tenderness - Bilateral lymphedema with superimposed cellulitis, clubbing, pedal edema Results Laboratory Results: 06/07/18 05:22 06/08/18 16:04 Assessment & Plan - Diagnosis (1) Bilateral lower leg cellulitis Is this a current diagnosis for this admission?: Yes Plan: Patient has been on vancomycin. (2) Lymphedema Is this a current diagnosis for this admission?: Yes Plan: Supportive treatment (3) Opiate dependence, continuous Is this a current diagnosis for this admission?: Yes Plan: Very difficult on this patient from opiates. Because of ongoing pain (4) Chronic respiratory failure with hypoxia, on home O2 therapy Is this a current diagnosis for this admission?: Yes Plan: Due to COPD. Continue bronchodilator. (5) Alcohol dependency Qualifiers: Substance use status: unspecified alcohol-induced disorder Qualified Code(s ): F10.29 - Alcohol dependence with unspecified alcohol-induced disorder Is this a current diagnosis for this admission?: Yes Plan: Patient's other alcohol withdrawal protocol.
[2018-06-10] MEDS: FLUTICASONE/SALMETEROL DISKUS 250-50 MCG/DOSE IH SCH (17:24)
[2018-06-10] MEDS: DOCUSATE SODIUM 100 MG CAPSULE PO SCH (17:25)
[2018-06-10] MEDS: TRAMADOL HCL 50 MG TABLET PO PRN (17:58)
[2018-06-10] MEDS: TRAZODONE HCL 50 MG TABLET PO SCH (21:37)
[2018-06-10] MEDS: MONTELUKAST SODIUM 10 MG TABLET PO SCH (21:37)
[2018-06-10] MEDS: ATORVASTATIN CALCIUM 40 MG TABLET PO SCH (21:37)
[2018-06-10] MEDS: TEMAZEPAM 15 MG CAPSULE PO PRN (21:38)
[2018-06-10] MEDS ORDERED: (PENDING PHARMACY ID) (Trazodone Hcl [Desyrel] 300 MG) PO SCH (22:00)
[2018-06-10] MEDS ORDERED: (PENDING PHARMACY ID) (Melatonin [Melatonin] 10 MG) PO SCH (22:00)
[2018-06-10] MEDS: MELATONIN 5 MG TABLET PO SCH (22:18)
[2018-06-11] MEDS: HYDROMORPHONE HCL INJ/PF 2 MG/ML AMPULE IV PRN (02:45)
[2018-06-11] MEDS: DIAZEPAM 5 MG TABLET PO SCH ×4 (02:46→17:56)
[2018-06-11] MEDS: IPRATROPIUM/ALBUTEROL 0.5-2.5 MG/3 ML AMPUL NEB SCH ×4 (02:47→20:14)
[2018-06-11 05:53] LABS: ANION GAP 8 (5-19); BLOOD UREA NITROGEN 4 mg/dL (7-20); CARBON DIOXIDE 32 mmol/L (22-30); CHLORIDE 104 mmol/L (98-107); GLUCOSE 110 mg/dL (75-110); POTASSIUM 4.1 mmol/L (3.6-5.0); SODIUM 143.5 mmol/L (137-145)
[2018-06-11] MEDS: TRAMADOL HCL 50 MG TABLET PO PRN ×3 (05:58→21:31)
[2018-06-11] MEDS: PREGABALIN 75 MG CAPSULE PO SCH ×3 (05:59→21:31)
[2018-06-11] MEDS: FLUTICASONE/SALMETEROL DISKUS 250-50 MCG/DOSE IH SCH ×2 (06:00→17:59)
[2018-06-11] MEDS ORDERED: B LONGUM PO SCH (08:00)
[2018-06-11] MEDS ORDERED: ACIDOPHIL PO SCH (08:00)
[2018-06-11] MEDS ORDERED: B LACTIS PO SCH (08:00)
[2018-06-11] MEDS: FUROSEMIDE 20 MG TABLET PO SCH (09:58)
[2018-06-11] MEDS: RIVAROXABAN 10 MG TABLET PO SCH (09:59)
[2018-06-11] MEDS: CHOLECALCIFEROL (D3) 1,000 UNIT TABLET PO SCH (09:59)
[2018-06-11] MEDS ORDERED: (PENDING PHARMACY ID) (Tiotropium Bromide [Spiriva Respimat] 2 PUFF) IH SCH (10:00)
[2018-06-11] MEDS ORDERED: (PENDING PHARMACY ID) (Naloxegol Oxalate [Movantik] 25 MG) PO SCH (10:00)
[2018-06-11] MEDS ORDERED: VITAMIN B COMPLEX PO SCH (10:00)
[2018-06-11] MEDS: MULTIVIT-STRESS FORMULA/ZINC TABLET PO SCH (10:01)
[2018-06-11] MEDS: LORATADINE 10 MG TABLET PO SCH (10:01)
[2018-06-11] MEDS: CYANOCOBALAMIN (VITAMIN B-12) 1,000 MCG TABLET PO SCH (10:01)
[2018-06-11] MEDS: DOCUSATE SODIUM 100 MG CAPSULE PO SCH ×2 (10:02→17:56)
[2018-06-11] MEDS: MULTIVITAMIN TABLET PO SCH (10:02)
[2018-06-11] MEDS: FOLIC ACID 1 MG TABLET PO SCH (10:02)
[2018-06-11] MEDS: FLUTICASONE NASAL SPRAY 50 MCG/SPRY 120 SPRAY/16 GM NASL SCH ×2 (10:03→21:32)
[2018-06-11] MEDS: VANCOMYCIN HCL 2,000 MG in DEXTROSE 5%-WATER 500 ML IV SCH ×2 (10:08→21:29)
[2018-06-11] MEDS: RIVAROXABAN 15 MG TABLET PO SCH (10:37)
[2018-06-11] MEDS: NORMAL SALINE 10 ML SDV (SCHEDULED) IV SCH ×2 (10:44→21:43)
--- NOTE | 2018-06-11 11:21 | RADIOLOGY REPORT (SQ) ---
EXAM DESCRIPTION: PICC INSERTION; U/S GUIDE FOR VASCULAR ACCESS; FLUORO/CV PLACEMENT COMPLETED DATE/TIME: 06/11/2018 9:36 am REASON FOR STUDY: NO IV ACCESS; IV ACCESS COMPARISON: None. FLUOROSCOPY TIME: 5 seconds. 1 images saved to PACS. TECHNIQUE: Fluoroscopic and ultrasound guided PICC placement. LIMITATIONS: None. PROCEDURE: After written consent and assessment were obtained, the patient was brought into the fluo roscopy room and place supine on the table. Ultrasound evaluation of potential access sites were perf ormed. After successfully identifying a patent left basilic vein, the left arm was prepped and draped in a sterile fashion along with the ultrasound probe. The entry site was anesthetized with 1% lidoca ine. A 21 gauge 7 cm needle was advanced through the skin and into the basilic vein under live ultras ound guidance. An ultrasound image was saved to PACS confirming access site. A .018 guide wire was then inserted through the needle and into the venous system. The needle was the removed and an 11 rosario de scalpel was used to make a 1cm skin incision. A 5 fr peel-away sheath was advanced over the wire and into the venous system. A measurement was then made using the existing wire and live fluoroscopic guidance. The wire was then removed and the trimmed. The PICC was advanced through the peel-away she ath and into the venous system. The peel-away sheath was removed and the catheter was adhered to the patients arm with a stat lock. The catheter was then aspirated and flushed and a sterile bandage was placed over the access site. A fluoroscopic spot image was saved to PACS confirming the catheter tip within the superior vena cava. IMPRESSION: SUCCESSFUL PLACEMENT OF A 5 FR DUAL LUMEN 13 9 CM PICC IN THE LEFT BASILIC VEIN. COMMENT: Patient medication list reviewed: Yes- Quality ID# [id number]:Eligible professional attests to doc umenting in the medical record they obtained, updated, or reviewed the patient's current medications. . Quality ID 145: Final reports for procedures using fluoroscopy that document radiation exposure basim angie, or exposure time and number of fluorographic images (if radiation exposure indices are not avail able) Quality ID #76: The patient was prepped and draped using maximum sterile barrier technique including cap, mask, sterile gown, sterile gloves, a large sterile sheet, hand hygiene, and 2% Chlorhexidine fo r cutaneous antisepsis. When ultrasound is used, sterile ultrasound techniques are followed requiring sterile gel and sterile probes. TECHNICAL DOCUMENTATION: JOB ID: [id number]- All Rights Reserved rev Reading location - IP/workstation name: [facility] [place]
--- NOTE | 2018-06-11 13:06 | PDOC PROGRESS REPORT ---
Subjective Progress Note for:: 06/11/18 Subjective:: Patient reports he had a restful night after I increased the dose of his fentanyl patch from 75 mcg to 100 mcg. No fever, chills, nausea or vomiting. Reason For Visit: LOWER EXTREMITIES CELLULITIS Physical Exam Vital Signs: Temp Pulse Resp BP Pulse Ox 98.2 F 104 H 20 130/81 H 94 06/11/18 11:52 06/11/18 11:52 06/11/18 11:52 06/11/18 11:52 06/11/18 11:52 Intake & Output 06/10/18 06/11/18 06/12/18 06:59 06:59 06:59 Intake Total 2854 2410 500 Output Total 1800 1550 Balance 1054 860 500 Weight 129.8 kg Results Laboratory Results: 06/07/18 05:22 06/11/18 05:19 06/11/18 05:19 Sodium 143.5 Potassium 4.1 Chloride 104 Carbon Dioxide 32 H Anion Gap 8 BUN 4 L Creatinine 0.69 Est GFR ( Amer) > 60 Est GFR (Non-Af Amer) > 60 Glucose 110 Calcium 9.0 Impressions: Guidance Fluoroscopy 06/11/18 00:00 IMPRESSION: SUCCESSFUL PLACEMENT OF A 5 FR DUAL LUMEN 13 9 CM PICC IN THE LEFT BASILIC VEIN. Interventional Vascular Procedure 06/11/18 00:00 IMPRESSION: SUCCESSFUL PLACEMENT OF A 5 FR DUAL LUMEN 13 9 CM PICC IN THE LEFT BASILIC VEIN. PICC Line Insertion 06/11/18 00:00 IMPRESSION: SUCCESSFUL PLACEMENT OF A 5 FR DUAL LUMEN 13 9 CM PICC IN THE LEFT BASILIC VEIN. Assessment & Plan - Diagnosis (1) Bilateral lower leg cellulitis Is this a current diagnosis for this admission?: Yes Plan: Continue current regimen (2) Lymphedema Is this a current diagnosis for this admission?: Yes Plan: Supportive treatment (3) Opiate dependence, continuous Is this a current diagnosis for this admission?: Yes Plan: Very difficult on this patient from opiates. Because of ongoing pain (4) Chronic respiratory failure with hypoxia, on home O2 therapy Is this a current diagnosis for this admission?: Yes Plan: Due to COPD. Continue bronchodilator. (5) Alcohol dependency Qualifiers: Substance use status: unspecified alcohol-induced disorder Qualified Code(s ): F10.29 - Alcohol dependence with unspecified alcohol-induced disorder Is this a current diagnosis for this admission?: Yes Plan: Patient's other alcohol withdrawal protocol.
[2018-06-11] MEDS: TRAZODONE HCL 50 MG TABLET PO SCH (21:31)
[2018-06-11] MEDS: ATORVASTATIN CALCIUM 40 MG TABLET PO SCH (21:32)
[2018-06-11] MEDS: MELATONIN 5 MG TABLET PO SCH (21:34)
[2018-06-11] MEDS: MONTELUKAST SODIUM 10 MG TABLET PO SCH (21:43)
[2018-06-12] MEDS: DIAZEPAM 5 MG TABLET PO SCH ×5 (01:15→23:58)
[2018-06-12] MEDS: IPRATROPIUM/ALBUTEROL 0.5-2.5 MG/3 ML AMPUL NEB SCH ×4 (02:05→20:26)
[2018-06-12] MEDS: TRAMADOL HCL 50 MG TABLET PO PRN ×2 (05:49→21:38)
[2018-06-12] MEDS: FLUTICASONE/SALMETEROL DISKUS 250-50 MCG/DOSE IH SCH ×2 (05:49→18:18)
[2018-06-12] MEDS: PREGABALIN 75 MG CAPSULE PO SCH ×3 (05:49→21:39)
[2018-06-12] MEDS: VANCOMYCIN HCL 2,000 MG in DEXTROSE 5%-WATER 500 ML IV SCH ×2 (08:39→21:38)
[2018-06-12] MEDS: FUROSEMIDE 20 MG TABLET PO SCH (08:40)
[2018-06-12] MEDS: LACTOBACILLUS ACIDOPHILUS 250 MG TAB PO SCH (08:40)
[2018-06-12] MEDS: CYANOCOBALAMIN (VITAMIN B-12) 1,000 MCG TABLET PO SCH (10:58)
[2018-06-12] MEDS: FOLIC ACID 1 MG TABLET PO SCH (10:58)
[2018-06-12] MEDS: CHOLECALCIFEROL (D3) 1,000 UNIT TABLET PO SCH (10:58)
[2018-06-12] MEDS: MULTIVIT-STRESS FORMULA/ZINC TABLET PO SCH (10:58)
[2018-06-12] MEDS: LORATADINE 10 MG TABLET PO SCH (10:58)
[2018-06-12] MEDS: RIVAROXABAN 10 MG TABLET PO SCH (10:58)
[2018-06-12] MEDS: DOCUSATE SODIUM 100 MG CAPSULE PO SCH ×2 (10:58→18:18)
[2018-06-12] MEDS: MULTIVITAMIN TABLET PO SCH (10:59)
[2018-06-12] MEDS: FLUTICASONE NASAL SPRAY 50 MCG/SPRY 120 SPRAY/16 GM NASL SCH ×2 (11:00→21:39)
[2018-06-12] MEDS: NORMAL SALINE 10 ML SDV (SCHEDULED) IV SCH ×2 (11:00→21:40)
[2018-06-12 12:01] LABS: APPEARANCE,URINE SLIGHTLY-CLOUDY; BILIRUBIN,URINE NEGATIVE (NEGATIVE); COLOR,URINE YELLOW; GLUCOSE, URINE NEGATIVE (NEGATIVE); KETONES,URINE NEGATIVE (NEGATIVE); LEUKOCYTE ESTERASE,URINE NEGATIVE (NEGATIVE); NITRITE,URINE NEGATIVE (NEGATIVE); PROTEIN,URINE NEGATIVE (NEGATIVE); URINE SPECIFIC GRAVITY 1.004; UROBILINOGEN,URINE NEGATIVE mg/dL (<2.0)
--- NOTE | 2018-06-12 14:19 | PDOC PROGRESS REPORT ---
Subjective Progress Note for:: 06/12/18 Subjective:: No significant event overnight. No new complaint. His pain is well controlled with fentanyl patch 100 mcg. Reason For Visit: LOWER EXTREMITIES CELLULITIS Physical Exam Vital Signs: Temp Pulse Resp BP Pulse Ox 97.5 F 91 16 108/65 96 06/12/18 08:00 06/12/18 08:31 06/12/18 08:31 06/12/18 08:00 06/12/18 08:31 Intake & Output 06/11/18 06/12/18 06/13/18 06:59 06:59 06:59 Intake Total 2410 2039 500 Output Total 1550 1430 Balance 860 609 500 Weight 129.8 kg 129.9 kg General appearance: PRESENT: no acute distress Head exam: PRESENT: atraumatic Mouth exam: PRESENT: moist Neck exam: ABSENT: carotid bruit, JVD, lymphadenopathy, thyromegaly Respiratory exam: PRESENT: clear to auscultation lui. ABSENT: rales, rhonchi, wheezes Cardiovascular exam: PRESENT: RRR. ABSENT: diastolic murmur, rubs, systolic murmur GI/Abdominal exam: PRESENT: normal bowel sounds, soft. ABSENT: distended, guarding, mass, organolmegaly, rebound, tenderness Extremities exam: PRESENT: other - Bilateral lymphedema and cellulitis Neurological exam: PRESENT: alert, awake Results Laboratory Results: 06/07/18 05:22 06/11/18 05:19 06/12/18 11:30 Urine Color YELLOW Urine Appearance SLIGHTLY-CLOUDY Urine pH 5.0 Ur Specific [place] 1.004 Urine Protein NEGATIVE Urine Glucose (UA) NEGATIVE Urine Ketones NEGATIVE Urine Blood NEGATIVE Urine Nitrite NEGATIVE Ur Leukocyte Esterase NEGATIVE Urine WBC (Auto) 1 Urine RBC (Auto) 0 06/07/18 00:44 Blood Blood Culture - Final NO GROWTH IN 5 DAYS Impressions: Guidance Fluoroscopy 06/11/18 00:00 IMPRESSION: SUCCESSFUL PLACEMENT OF A 5 FR DUAL LUMEN 13 9 CM PICC IN THE LEFT BASILIC VEIN. Interventional Vascular Procedure 06/11/18 00:00 IMPRESSION: SUCCESSFUL PLACEMENT OF A 5 FR DUAL LUMEN 13 9 CM PICC IN THE LEFT BASILIC VEIN. PICC Line Insertion 06/11/18 00:00 IMPRESSION: SUCCESSFUL PLACEMENT OF A 5 FR DUAL LUMEN 13 9 CM PICC IN THE LEFT BASILIC VEIN. Assessment & Plan - Diagnosis (1) Bilateral lower leg cellulitis Is this a current diagnosis for this admission?: Yes Plan: Day 5 on vancomycin (2) Lymphedema Is this a current diagnosis for this admission?: Yes Plan: Supportive treatment (3) Opiate dependence, continuous Is this a current diagnosis for this admission?: Yes Plan: Very difficult on this patient from opiates. Because of ongoing pain (4) Chronic respiratory failure with hypoxia, on home O2 therapy Is this a current diagnosis for this admission?: Yes Plan: Due to COPD. Continue bronchodilator. (5) Alcohol dependency Qualifiers: Substance use status: unspecified alcohol-induced disorder Qualified Code(s ): F10.29 - Alcohol dependence with unspecified alcohol-induced disorder Is this a current diagnosis for this admission?: Yes Plan: Patient's other alcohol withdrawal protocol.
--- NOTE | 2018-06-12 19:29 | Progress Note ---
Provider Note Provider Note: ID Consult Note Asked to review pt's chart by Pharmacy. Pt not seen or examined. Reviewed provider notes, VS, labs. Pt is a 62 year old morbidly obese man with hx of opiate dependence, COPD, and chronic BLE lymphedema. He presented to the hospital on 06/07/18 with c/o worsening erythema in his RLE that has ascended above his knee to his thigh. On exam he was noted to have erythema to mid thigh on the right with erythema and increased warmth and tenderness to palpation and less severe edema involving the LLE with erythema and edema involving both feet. Pt has not had fever during admission or leukocytosis. He had BCx on admission that are negative. Pt has unspecified Keflex allergy. Pt has been on vancomycin IV and is requiring 2 g IV q12h. Impression/Recommendations RLE cellulitis, nonpurulent - Stasis dermatitis is a mimic of cellulitis that must be distinguished from it. Features like ascending streaking, fever, leukocytosis, or lymphadenopathy would suggest cellulitis. Although none of these features are present, it is difficult to completely rule out cellulitis, particularly as the cardinal signs of inflammation (which could be present in both stasis dermatitis and cellulitis ) are much greater involving one leg than the other and beyond the patient's baseline. He likely has cellulitis involving the RLE superimposed on chronic stasis dermatitis. - For nonpurulent skin/soft tissue infections, treatment generally should be aimed at Strep species and MSSA. Usually empiric MRSA treatment is not required. As Mr Ricardo has an unspecified allergy to Keflex, he has been receiving vancomycin IV. This could be changed to linezolid PO 600 mg BID, which would allow him to continue treatment as an outpatient without a PICC line as long as case management / discharge planners can ensure that he is able to receive it (cost can be a problem). Other options for PO treatment exist but involve more pills or dosing at the higher end of the usual range, which could be difficult for patient to comply with or tolerate. - Agree that elevation of the affected leg is very important, along with compression as tolerated. - Duration of therapy varies, can be as little as 5 days or longer depending on extent of infection and response to treatment, up to 7-14 days in total. Caesar Cruz MD [facility] Infectious Diseases pager [phone]
[2018-06-12] MEDS: TRAZODONE HCL 50 MG TABLET PO SCH (21:38)
[2018-06-12] MEDS: ATORVASTATIN CALCIUM 40 MG TABLET PO SCH (21:39)
[2018-06-12] MEDS: MONTELUKAST SODIUM 10 MG TABLET PO SCH (21:40)
[2018-06-12] MEDS: MELATONIN 5 MG TABLET PO SCH (21:40)
[2018-06-13] MEDS: IPRATROPIUM/ALBUTEROL 0.5-2.5 MG/3 ML AMPUL NEB SCH ×4 (01:29→19:58)
[2018-06-13] MEDS: DIAZEPAM 5 MG TABLET PO SCH ×3 (06:11→17:10)
[2018-06-13] MEDS: FLUTICASONE/SALMETEROL DISKUS 250-50 MCG/DOSE IH SCH ×2 (06:11→17:10)
[2018-06-13] MEDS: PREGABALIN 75 MG CAPSULE PO SCH ×3 (06:11→22:26)
[2018-06-13] MEDS: TRAMADOL HCL 50 MG TABLET PO PRN ×2 (08:11→17:12)
[2018-06-13] MEDS: FUROSEMIDE 20 MG TABLET PO SCH (08:12)
[2018-06-13] MEDS: LACTOBACILLUS ACIDOPHILUS 250 MG TAB PO SCH (08:12)
[2018-06-13] MEDS: VANCOMYCIN HCL 2,000 MG in DEXTROSE 5%-WATER 500 ML IV SCH ×2 (08:13→22:21)
[2018-06-13 09:39] LABS: VANCOMYCIN,TROUGH 45.8 ug/mL (5.0-20.0)
[2018-06-13] MEDS: CYANOCOBALAMIN (VITAMIN B-12) 1,000 MCG TABLET PO SCH (10:30)
[2018-06-13] MEDS: MULTIVIT-STRESS FORMULA/ZINC TABLET PO SCH (10:30)
[2018-06-13] MEDS: MULTIVITAMIN TABLET PO SCH (10:30)
[2018-06-13] MEDS: CHOLECALCIFEROL (D3) 1,000 UNIT TABLET PO SCH (10:30)
[2018-06-13] MEDS: RIVAROXABAN 10 MG TABLET PO SCH (10:30)
[2018-06-13] MEDS: FOLIC ACID 1 MG TABLET PO SCH (10:30)
[2018-06-13] MEDS: DOCUSATE SODIUM 100 MG CAPSULE PO SCH ×2 (10:30→17:10)
[2018-06-13] MEDS: FLUTICASONE NASAL SPRAY 50 MCG/SPRY 120 SPRAY/16 GM NASL SCH ×2 (10:31→22:26)
[2018-06-13] MEDS: LORATADINE 10 MG TABLET PO SCH (10:31)
[2018-06-13] MEDS: NORMAL SALINE 10 ML SDV (SCHEDULED) IV SCH ×2 (10:32→22:27)
[2018-06-13] MEDS: FENTANYL 100 MCG/HR PATCH.TD72 TD SCH (11:25)
--- NOTE | 2018-06-13 14:28 | PDOC PROGRESS REPORT ---
Subjective Progress Note for:: 06/13/18 Subjective:: Patient complains of difficulty walking because of his extensive lymphedema. I told him I can prescribe wheelchair for him but he said he lives in a trailer does not have enough space to move around with wheelchair. I appreciate the input of Dr. Anthony DWYER from [facility] otherwise patient's clinical stable. And his potential discharge for tomorrow. Reason For Visit: LOWER EXTREMITIES CELLULITIS Physical Exam Vital Signs: Temp Pulse Resp BP Pulse Ox 98.3 F 86 18 117/65 97 06/13/18 11:04 06/13/18 14:08 06/13/18 14:08 06/13/18 11:04 06/13/18 14:08 Intake & Output 06/12/18 06/13/18 06/14/18 06:59 06:59 06:59 Intake Total 2039 1650 500 Output Total 1430 2320 Balance 609 -670 500 Weight 129.9 kg 131.5 kg General appearance: PRESENT: no acute distress Head exam: PRESENT: atraumatic Eye exam: PRESENT: conjunctiva pink Mouth exam: PRESENT: moist Neck exam: ABSENT: carotid bruit, JVD, lymphadenopathy, thyromegaly Respiratory exam: PRESENT: clear to auscultation lui. ABSENT: rales, rhonchi, wheezes Cardiovascular exam: PRESENT: RRR. ABSENT: diastolic murmur, rubs, systolic murmur GI/Abdominal exam: PRESENT: normal bowel sounds, soft. ABSENT: distended, guarding, mass, organolmegaly, rebound, tenderness Extremities exam: PRESENT: other - Bilateral extensive lymphedema Neurological exam: PRESENT: alert, awake, oriented to time, oriented to situation Psychiatric exam: PRESENT: normal mood Results Laboratory Results: 06/07/18 05:22 06/13/18 09:00 06/13/18 09:00 Creatinine 0.75 Est GFR ( Amer) > 60 Est GFR (Non-Af Amer) > 60 Impressions: Guidance Fluoroscopy 06/11/18 00:00 IMPRESSION: SUCCESSFUL PLACEMENT OF A 5 FR DUAL LUMEN 13 9 CM PICC IN THE LEFT BASILIC VEIN. Interventional Vascular Procedure 06/11/18 00:00 IMPRESSION: SUCCESSFUL PLACEMENT OF A 5 FR DUAL LUMEN 13 9 CM PICC IN THE LEFT BASILIC VEIN. PICC Line Insertion 07/30/18 00:00 IMPRESSION: SUCCESSFUL PLACEMENT OF A 5 FR DUAL LUMEN 13 9 CM PICC IN THE LEFT BASILIC VEIN. Assessment & Plan - Diagnosis (1) Bilateral lower leg cellulitis Is this a current diagnosis for this admission?: Yes Plan: Today is day 6 of vancomycin. (2) Lymphedema Is this a current diagnosis for this admission?: Yes Plan: Supportive treatment (3) Opiate dependence, continuous Is this a current diagnosis for this admission?: Yes Plan: Very difficult on this patient from opiates. Because of ongoing pain (5) Alcohol dependency Qualifiers: Substance use status: unspecified alcohol-induced disorder Qualified Code(s ): F10.29 - Alcohol dependence with unspecified alcohol-induced disorder Is this a current diagnosis for this admission?: Yes Plan: Patient's other alcohol withdrawal protocol.
[2018-06-13 22:05] LABS: VANCOMYCIN,TROUGH 26.7 ug/mL (5.0-20.0)
[2018-06-13] MEDS: TRAZODONE HCL 50 MG TABLET PO SCH (22:25)
[2018-06-13] MEDS: ATORVASTATIN CALCIUM 40 MG TABLET PO SCH (22:26)
[2018-06-13] MEDS: MELATONIN 5 MG TABLET PO SCH (22:28)
[2018-06-13] MEDS: MONTELUKAST SODIUM 10 MG TABLET PO SCH (22:29)
[2018-06-14] MEDS: DIAZEPAM 5 MG TABLET PO SCH ×3 (00:25→13:16)
[2018-06-14] MEDS: IPRATROPIUM/ALBUTEROL 0.5-2.5 MG/3 ML AMPUL NEB SCH ×4 (01:40→20:28)
[2018-06-14] MEDS: TRAMADOL HCL 50 MG TABLET PO PRN (03:30)
[2018-06-14] MEDS: FLUTICASONE/SALMETEROL DISKUS 250-50 MCG/DOSE IH SCH ×2 (06:11→18:11)
[2018-06-14] MEDS: PREGABALIN 75 MG CAPSULE PO SCH ×3 (06:12→21:40)
[2018-06-14] MEDS: DOCUSATE SODIUM 100 MG CAPSULE PO SCH ×2 (10:18→18:11)
[2018-06-14] MEDS: CYANOCOBALAMIN (VITAMIN B-12) 1,000 MCG TABLET PO SCH (10:18)
[2018-06-14] MEDS: RIVAROXABAN 10 MG TABLET PO SCH (10:18)
[2018-06-14] MEDS: CHOLECALCIFEROL (D3) 1,000 UNIT TABLET PO SCH (10:18)
[2018-06-14] MEDS: LACTOBACILLUS ACIDOPHILUS 250 MG TAB PO SCH (10:18)
[2018-06-14] MEDS: FOLIC ACID 1 MG TABLET PO SCH (10:18)
[2018-06-14] MEDS: FUROSEMIDE 20 MG TABLET PO SCH (10:19)
[2018-06-14] MEDS: MULTIVITAMIN TABLET PO SCH (10:19)
[2018-06-14] MEDS: LORATADINE 10 MG TABLET PO SCH (10:19)
[2018-06-14] MEDS: MULTIVIT-STRESS FORMULA/ZINC TABLET PO SCH (10:19)
[2018-06-14] MEDS: NORMAL SALINE 10 ML SDV (SCHEDULED) IV SCH ×2 (10:23→21:42)
[2018-06-14] MEDS: FLUTICASONE NASAL SPRAY 50 MCG/SPRY 120 SPRAY/16 GM NASL SCH ×2 (11:31→21:40)
--- NOTE | 2018-06-14 16:53 | PDOC PROGRESS REPORT ---
Subjective Subjective:: HUSSAIN NEVAREZ is a 62 year old male with history of chronic bilateral lower extremities lymphedema with recurrent cellulitis, chronic respiratory failure on 3 L oxygen at home, well-known to the hospitalist service. Patient has multiple admission to this hospital for the same complaint. Since patient has underlying lymphedema and venous stasis this is a recurrent cellulitis. patient has completed 7 day course of vancomycin. His blood cultures negative so far. Patient constantly complaining of difficulty to stand up and walking because of his lymphedema. I told him I can order for him wheelchair but declined because he lives in a trailer who does not have enough space to maneuver. Patient would benefit from snf facility placement. Reason For Visit: LOWER EXTREMITIES CELLULITIS Physical Exam Vital Signs: Temp Pulse Resp BP Pulse Ox 98.2 F 113 H 16 108/76 96 06/14/18 11:21 06/14/18 14:17 06/14/18 14:17 06/14/18 11:21 06/14/18 11:21 Intake & Output 06/13/18 06/14/18 06/15/18 06:59 06:59 06:59 Intake Total 1650 1760 Output Total 2320 350 Balance -670 1410 Weight 131.5 kg 131.7 kg General appearance: PRESENT: no acute distress Head exam: PRESENT: atraumatic Neck exam: ABSENT: carotid bruit, JVD, lymphadenopathy, thyromegaly Respiratory exam: PRESENT: clear to auscultation lui. ABSENT: rales, rhonchi, wheezes Cardiovascular exam: PRESENT: RRR. ABSENT: diastolic murmur, rubs, systolic murmur GI/Abdominal exam: PRESENT: normal bowel sounds, soft. ABSENT: distended, guarding, mass, organolmegaly, rebound, tenderness Results Laboratory Results: 06/07/18 05:22 06/13/18 09:00 Impressions: Guidance Fluoroscopy 06/11/18 00:00 IMPRESSION: SUCCESSFUL PLACEMENT OF A 5 FR DUAL LUMEN 13 9 CM PICC IN THE LEFT BASILIC VEIN. Interventional Vascular Procedure 06/11/18 00:00 IMPRESSION: SUCCESSFUL PLACEMENT OF A 5 FR DUAL LUMEN 13 9 CM PICC IN THE LEFT BASILIC VEIN. PICC Line Insertion 06/11/18 00:00 IMPRESSION: SUCCESSFUL PLACEMENT OF A 5 FR DUAL LUMEN 13 9 CM PICC IN THE LEFT BASILIC VEIN. Assessment & Plan - Diagnosis (1) Bilateral lower leg cellulitis Is this a current diagnosis for this admission?: Yes Plan: Patient completed 7 days course of vancomycin. (2) Lymphedema Is this a current diagnosis for this admission?: Yes Plan: Supportive treatment (3) Opiate dependence, continuous Is this a current diagnosis for this admission?: Yes Plan: Very difficult on this patient from opiates. Because of ongoing pain (4) Chronic respiratory failure with hypoxia, on home O2 therapy Is this a current diagnosis for this admission?: Yes Plan: Due to COPD. Continue bronchodilator. (5) Alcohol dependency Qualifiers: Substance use status: unspecified alcohol-induced disorder Qualified Code(s ): F10.29 - Alcohol dependence with unspecified alcohol-induced disorder Is this a current diagnosis for this admission?: Yes Plan: Patient's other alcohol withdrawal protocol.
[2018-06-14] MEDS: MELATONIN 5 MG TABLET PO SCH (21:40)
[2018-06-14] MEDS: ATORVASTATIN CALCIUM 40 MG TABLET PO SCH (21:40)
[2018-06-14] MEDS: MONTELUKAST SODIUM 10 MG TABLET PO SCH (21:40)
[2018-06-14] MEDS: TRAZODONE HCL 50 MG TABLET PO SCH (21:49)
[2018-06-15] MEDS: IPRATROPIUM/ALBUTEROL 0.5-2.5 MG/3 ML AMPUL NEB SCH ×4 (02:16→19:34)
[2018-06-15] MEDS: PREGABALIN 75 MG CAPSULE PO SCH ×3 (06:02→21:51)
[2018-06-15] MEDS: FLUTICASONE/SALMETEROL DISKUS 250-50 MCG/DOSE IH SCH ×2 (06:02→17:33)
[2018-06-15] MEDS: LACTOBACILLUS ACIDOPHILUS 250 MG TAB PO SCH (08:14)
[2018-06-15] MEDS: FUROSEMIDE 20 MG TABLET PO SCH (08:14)
[2018-06-15] MEDS: MULTIVITAMIN TABLET PO SCH (10:52)
[2018-06-15] MEDS: CHOLECALCIFEROL (D3) 1,000 UNIT TABLET PO SCH (10:52)
[2018-06-15] MEDS: FOLIC ACID 1 MG TABLET PO SCH (10:53)
[2018-06-15] MEDS: RIVAROXABAN 10 MG TABLET PO SCH (10:53)
[2018-06-15] MEDS: DOCUSATE SODIUM 100 MG CAPSULE PO SCH ×2 (10:53→17:33)
[2018-06-15] MEDS: CYANOCOBALAMIN (VITAMIN B-12) 1,000 MCG TABLET PO SCH (10:53)
[2018-06-15] MEDS: MULTIVIT-STRESS FORMULA/ZINC TABLET PO SCH (10:53)
[2018-06-15] MEDS: NORMAL SALINE 10 ML SDV (SCHEDULED) IV SCH ×2 (10:54→21:54)
[2018-06-15] MEDS: LORATADINE 10 MG TABLET PO SCH (10:54)
[2018-06-15] MEDS: FLUTICASONE NASAL SPRAY 50 MCG/SPRY 120 SPRAY/16 GM NASL SCH ×2 (10:57→21:52)
--- NOTE | 2018-06-15 17:10 | PDOC PROGRESS REPORT ---
Subjective Progress Note for:: 06/15/18 - seen on rounds this afternoon Subjective:: states he can't walk. states his legs hurt and feel heavy Reason For Visit: LOWER EXTREMITIES CELLULITIS Physical Exam Vital Signs: Temp Pulse Resp BP Pulse Ox 97.9 F 95 16 106/72 93 06/15/18 11:08 06/15/18 13:45 06/15/18 13:45 06/15/18 11:08 06/15/18 13:45 Intake & Output 06/14/18 06/15/18 06/16/18 06:59 06:59 06:59 Intake Total 1760 600 Output Total 350 Balance 1410 600 Weight 290 lb 5.581 oz General appearance: PRESENT: no acute distress, morbidly obese Eye exam: PRESENT: EOMI, PERRLA. ABSENT: scleral icterus Ear exam: PRESENT: normal external ear exam Mouth exam: PRESENT: moist, neck supple, tongue midline Neck exam: ABSENT: tenderness, tracheal deviation Respiratory exam: PRESENT: decreased breath sounds - decreased breath sounds bilaterally at the bases, symmetrical Cardiovascular exam: PRESENT: +S1, +S2 Pulses: PRESENT: other - unable to palplate LE pulses GI/Abdominal exam: PRESENT: normal bowel sounds, soft. ABSENT: tenderness Extremities exam: PRESENT: other - bilateral LE lymphaedema- left foot now weeping clear fluid, erythema of b/l hurtado- stasis dermatitis Neurological exam: PRESENT: alert, awake, oriented to person, oriented to place , oriented to time, oriented to situation, CN II-XII grossly intact Skin exam: PRESENT: dry, warm Results Laboratory Results: 06/07/18 05:22 06/13/18 09:00 Impressions: Guidance Fluoroscopy 06/11/18 00:00 IMPRESSION: SUCCESSFUL PLACEMENT OF A 5 FR DUAL LUMEN 13 9 CM PICC IN THE LEFT BASILIC VEIN. Interventional Vascular Procedure 06/11/18 00:00 IMPRESSION: SUCCESSFUL PLACEMENT OF A 5 FR DUAL LUMEN 13 9 CM PICC IN THE LEFT BASILIC VEIN. PICC Line Insertion 06/11/18 00:00 IMPRESSION: SUCCESSFUL PLACEMENT OF A 5 FR DUAL LUMEN 13 9 CM PICC IN THE LEFT BASILIC VEIN. Assessment & Plan - Diagnosis (1) Cellulitis of both lower extremities Is this a current diagnosis for this admission?: Yes Plan: i am not sure if this is all cellulitis or stasis dermatitis. he did finished 7 days of antibiotics. Bcx remained negative. (2) Chronic respiratory failure with hypoxia, on home O2 therapy Is this a current diagnosis for this admission?: Yes Plan: likely due to COPD vs body habitus with pickwickian syndrome. he's at baseline 3L O2 now. continue for now. he should get evaluated for CPAP at night. (3) Lymphedema Is this a current diagnosis for this admission?: Yes Plan: he's on lasix 20mg PO daily - i have not seen his LE before- not sure if this is acute on chronic or chronic- he thinks this is how his legs look normally. but does admit that he's having more difficulty getting around at home prior to admission. asked nursing to get hand held doppler for LE pulses. we discussed about rehab/SNF and he's agreeable. CM is working on placement. (5) Obesity, Class III, BMI 40-49.9 (morbid obesity) Is this a current diagnosis for this admission?: Yes (6) History of DVT (deep vein thrombosis) Is this a current diagnosis for this admission?: Yes Plan: will get new U/S LE to rule out acute. he's already on Xarelto and we want to make sure he doesn't have another because he will need IVC filter if he fails PO anticoagulation
[2018-06-15] MEDS: TRAZODONE HCL 50 MG TABLET PO SCH (21:50)
[2018-06-15] MEDS: MONTELUKAST SODIUM 10 MG TABLET PO SCH (21:51)
[2018-06-15] MEDS: ATORVASTATIN CALCIUM 40 MG TABLET PO SCH (21:51)
[2018-06-15] MEDS: MELATONIN 5 MG TABLET PO SCH (21:52)
[2018-06-16] MEDS: IPRATROPIUM/ALBUTEROL 0.5-2.5 MG/3 ML AMPUL NEB SCH ×4 (01:00→21:00)
[2018-06-16] MEDS: FLUTICASONE/SALMETEROL DISKUS 250-50 MCG/DOSE IH SCH ×2 (06:32→17:45)
[2018-06-16] MEDS: PREGABALIN 75 MG CAPSULE PO SCH ×3 (06:32→21:58)
[2018-06-16] MEDS: FUROSEMIDE 20 MG TABLET PO SCH (10:03)
[2018-06-16] MEDS: LACTOBACILLUS ACIDOPHILUS 250 MG TAB PO SCH (10:03)
[2018-06-16] MEDS: NORMAL SALINE 10 ML SDV (SCHEDULED) IV SCH ×2 (10:04→22:00)
[2018-06-16] MEDS: LORATADINE 10 MG TABLET PO SCH (10:04)
[2018-06-16] MEDS: FLUTICASONE NASAL SPRAY 50 MCG/SPRY 120 SPRAY/16 GM NASL SCH ×2 (10:04→22:00)
[2018-06-16] MEDS: FOLIC ACID 1 MG TABLET PO SCH (10:04)
[2018-06-16] MEDS: DOCUSATE SODIUM 100 MG CAPSULE PO SCH ×2 (10:04→17:45)
[2018-06-16] MEDS: CYANOCOBALAMIN (VITAMIN B-12) 1,000 MCG TABLET PO SCH (10:05)
[2018-06-16] MEDS: MULTIVITAMIN TABLET PO SCH (10:05)
[2018-06-16] MEDS: MULTIVIT-STRESS FORMULA/ZINC TABLET PO SCH (10:05)
[2018-06-16] MEDS: RIVAROXABAN 10 MG TABLET PO SCH (10:05)
[2018-06-16] MEDS: CHOLECALCIFEROL (D3) 1,000 UNIT TABLET PO SCH (10:05)
[2018-06-16] MEDS: FENTANYL 100 MCG/HR PATCH.TD72 TD SCH (12:23)
--- NOTE | 2018-06-16 12:24 | PDOC PROGRESS REPORT ---
Subjective Progress Note for:: 06/16/18 - seen on arounds this afternoon Subjective:: states he feels the same. his legs are still swollen Reason For Visit: LOWER EXTREMITIES CELLULITIS Physical Exam Vital Signs: Temp Pulse Resp BP Pulse Ox 98.3 F 94 17 99/59 L 92 06/16/18 10:59 06/16/18 10:59 06/16/18 10:59 06/16/18 10:59 06/16/18 10:59 Intake & Output 06/15/18 06/16/18 06/17/18 06:59 06:59 06:59 Intake Total 600 1230 Output Total 580 Balance 600 650 Weight 298 lb 8.094 oz General appearance: PRESENT: no acute distress, morbidly obese Head exam: PRESENT: atraumatic, normocephalic Eye exam: PRESENT: EOMI, PERRLA Ear exam: PRESENT: normal external ear exam Mouth exam: PRESENT: moist, tongue midline Teeth exam: PRESENT: poor dentation Respiratory exam: PRESENT: clear to auscultation lui, decreased breath sounds - decreased breath sound bilaterally, symmetrical Cardiovascular exam: PRESENT: +S1, +S2 Pulses: PRESENT: other - unable to palpate pedal pulses- doppler is being used and documented in chart GI/Abdominal exam: PRESENT: normal bowel sounds, soft. ABSENT: tenderness Extremities exam: PRESENT: other - bilateral LE lymphadema Musculoskeletal exam: PRESENT: other - unable to assess ROM due to his chronic lymphadema Neurological exam: PRESENT: alert, awake, oriented to person, oriented to place , oriented to time, CN II-XII grossly intact Skin exam: PRESENT: other - b/l lower hurtado- erythematous- ?statis dermatitis- less weeping today Results Laboratory Results: 06/07/18 05:22 06/13/18 09:00 Impressions: Guidance Fluoroscopy 06/11/18 00:00 IMPRESSION: SUCCESSFUL PLACEMENT OF A 5 FR DUAL LUMEN 13 9 CM PICC IN THE LEFT BASILIC VEIN. Interventional Vascular Procedure 06/11/18 00:00 IMPRESSION: SUCCESSFUL PLACEMENT OF A 5 FR DUAL LUMEN 13 9 CM PICC IN THE LEFT BASILIC VEIN. PICC Line Insertion 06/11/18 00:00 IMPRESSION: SUCCESSFUL PLACEMENT OF A 5 FR DUAL LUMEN 13 9 CM PICC IN THE LEFT BASILIC VEIN. Assessment & Plan - Diagnosis (1) Cellulitis of both lower extremities Is this a current diagnosis for this admission?: Yes Plan: i am not sure if this is all cellulitis or stasis dermatitis. he did finished 7 days of antibiotics. Bcx remained negative. I stopped his antibiotics. he remains afebrile so far. will closely monitor for now (2) Chronic respiratory failure with hypoxia, on home O2 therapy Is this a current diagnosis for this admission?: Yes Plan: stable, likely due to COPD vs body habitus with pickwickian syndrome. he's at baseline 3L O2 now. continue for now. (3) Lymphedema Is this a current diagnosis for this admission?: Yes Plan: he's on lasix 20mg PO daily - i have not seen his LE before- not sure if this is acute on chronic or chronic- he's on lasix 20mg daily- will give an extra dose and see how he does. will get some lab work in AM. I have asked nursing to get hand held doppler for LE pulses. we discussed about rehab/SNF and he's agreeable. CM is working on placement. (5) Obesity, Class III, BMI 40-49.9 (morbid obesity) Is this a current diagnosis for this admission?: Yes (6) History of DVT (deep vein thrombosis) Is this a current diagnosis for this admission?: Yes
--- NOTE | 2018-06-16 12:25 | Progress Note ---
Provider Note Provider Note: U/S LE pending
[2018-06-16] MEDS: MELATONIN 5 MG TABLET PO SCH (21:58)
[2018-06-16] MEDS: TRAZODONE HCL 50 MG TABLET PO SCH (21:58)
[2018-06-16] MEDS: MONTELUKAST SODIUM 10 MG TABLET PO SCH (21:58)
[2018-06-16] MEDS: ATORVASTATIN CALCIUM 40 MG TABLET PO SCH (21:58)
[2018-06-17] MEDS: IPRATROPIUM/ALBUTEROL 0.5-2.5 MG/3 ML AMPUL NEB SCH ×4 (02:21→19:42)
[2018-06-17 05:11] LABS: ABSOLUTE EOSINOPHILS # (AUTO) 0.2 10^3/uL (0.0-0.6); ABSOLUTE LYMPHOCYTES (AUTO) 2.3 10^3/uL (0.5-4.7); ABSOLUTE NEUT (AUTO) 3.2 10^3/uL (1.7-8.2); BASOPHILS % (AUTO) 0.3 % (0-2); EOSINOPHILS % (AUTO) 3.2 % (0-6); HEMATOCRIT 31.4 % (37.9-51.0); HEMOGLOBIN 10.3 g/dL (13.5-17.0); MEAN CORPUSCULAR HEMOGLOBIN 29.7 pg (27.0-33.4); MEAN CORPUSCULAR HGB CONC 32.9 g/dL (32.0-36.0); MEAN CORPUSCULAR VOLUME 90 fl (80-97); MONOCYTES % (AUTO) 15.4 % (3-13); PLATELET COUNT 230 10^3/uL (150-450); RED BLOOD COUNT 3.48 10^6/uL (4.35-5.55); RED CELL DISTRIBUTION WIDTH 19.4 % (11.5-14.0); SEGMENTED NEUTROPHILS % (AUTO) 47.1 % (42-78); TOTAL CELLS COUNTED % (AUTO) 100 %; WHITE BLOOD COUNT 6.8 10^3/uL (4.0-10.5)
[2018-06-17 05:42] LABS: ANION GAP 8 (5-19); BLOOD UREA NITROGEN 7 mg/dL (7-20); CALCIUM 9.1 mg/dL (8.4-10.2); CARBON DIOXIDE 34 mmol/L (22-30); CHLORIDE 102 mmol/L (98-107); GLUCOSE 106 mg/dL (75-110); SODIUM 144.2 mmol/L (137-145)
[2018-06-17] MEDS: FLUTICASONE/SALMETEROL DISKUS 250-50 MCG/DOSE IH SCH ×2 (06:01→17:06)
[2018-06-17] MEDS: PREGABALIN 75 MG CAPSULE PO SCH ×3 (06:01→21:46)
[2018-06-17] MEDS: LACTOBACILLUS ACIDOPHILUS 250 MG TAB PO SCH (09:12)
[2018-06-17] MEDS: DOCUSATE SODIUM 100 MG CAPSULE PO SCH ×2 (09:13→17:07)
[2018-06-17] MEDS: FUROSEMIDE 20 MG TABLET PO SCH (09:13)
[2018-06-17] MEDS: FLUTICASONE NASAL SPRAY 50 MCG/SPRY 120 SPRAY/16 GM NASL SCH ×2 (09:13→21:45)
[2018-06-17] MEDS: FOLIC ACID 1 MG TABLET PO SCH (09:13)
[2018-06-17] MEDS: LORATADINE 10 MG TABLET PO SCH (09:13)
[2018-06-17] MEDS: NORMAL SALINE 10 ML SDV (SCHEDULED) IV SCH ×2 (09:14→21:46)
[2018-06-17] MEDS: CHOLECALCIFEROL (D3) 1,000 UNIT TABLET PO SCH (09:14)
[2018-06-17] MEDS: RIVAROXABAN 10 MG TABLET PO SCH (09:14)
[2018-06-17] MEDS: MULTIVITAMIN TABLET PO SCH (09:14)
[2018-06-17] MEDS: CYANOCOBALAMIN (VITAMIN B-12) 1,000 MCG TABLET PO SCH (09:14)
[2018-06-17] MEDS: MULTIVIT-STRESS FORMULA/ZINC TABLET PO SCH (09:14)
[2018-06-17] MEDS ORDERED: TRAMADOL HCL 50 MG TABLET PO PRN (12:39)
--- NOTE | 2018-06-17 15:31 | PDOC PROGRESS REPORT ---
Subjective Progress Note for:: 06/17/18 - Seen on rounds this morning Subjective:: States he has no new complaints at this time. Interim history by previous provider HUSSAIN Salvatore NEVAREZ is a 62 year old male with history of chronic bilateral lower extremities lymphedema with recurrent cellulitis, chronic respiratory failure on 3 L oxygen at home, well-known to the hospitalist service. Patient has multiple admission to this hospital for the same complaint. Since patient has underlying lymphedema and venous stasis this is a recurrent cellulitis. patient has completed 7 day course of vancomycin. His blood cultures negative so far. Patient constantly complaining of difficulty to stand up and walking because of his lymphedema. I told him I can order for him wheelchair but declined because he lives in a trailer who does not have enough space to maneuver. Patient would benefit from long-term facility placement. Reason For Visit: LOWER EXTREMITIES CELLULITIS Physical Exam Vital Signs: Temp Pulse Resp BP Pulse Ox 98.0 F 90 18 109/75 95 06/17/18 11:37 06/17/18 14:40 06/17/18 14:40 06/17/18 11:37 06/17/18 14:40 Intake & Output 06/16/18 06/17/18 06/18/18 06:59 06:59 06:59 Intake Total 1230 1030 Output Total 580 1310 Balance 650 -280 Weight 298 lb 8.094 oz 294 lb 5.074 oz General appearance: PRESENT: no acute distress Head exam: PRESENT: atraumatic, normocephalic Eye exam: PRESENT: EOMI. ABSENT: scleral icterus Mouth exam: PRESENT: tongue midline Neck exam: ABSENT: tracheal deviation Respiratory exam: PRESENT: decreased breath sounds - Bilaterally mostly at the bases with expiratory wheezing occasionally, symmetrical, wheezes Pulses: PRESENT: other - Unable to palpate due to his lymphedema Extremities exam: PRESENT: other - Lymphedema of bilateral lower extremity and bilateral hurtado stasis dermatitis Neurological exam: PRESENT: alert, awake, oriented to person, oriented to place , oriented to time, CN II-XII grossly intact Results Laboratory Results: 06/17/18 04:50 06/17/18 04:50 06/17/18 06/17/18 04:50 04:50 WBC 6.8 RBC 3.48 L Hgb 10.3 L Hct 31.4 L MCV 90 MCH 29.7 MCHC 32.9 RDW 19.4 H Plt Count 230 Seg Neutrophils % 47.1 Lymphocytes % 34.0 Monocytes % 15.4 H Eosinophils % 3.2 Basophils % 0.3 Absolute Neutrophils 3.2 Absolute Lymphocytes 2.3 Absolute Monocytes 1.0 Absolute Eosinophils 0.2 Absolute Basophils 0.0 Sodium 144.2 Potassium 4.0 Chloride 102 Carbon Dioxide 34 H Anion Gap 8 BUN 7 Creatinine 0.82 Est GFR ( Amer) > 60 Est GFR (Non-Af Amer) > 60 Glucose 106 Calcium 9.1 Magnesium 2.0 Impressions: Guidance Fluoroscopy 06/11/18 00:00 IMPRESSION: SUCCESSFUL PLACEMENT OF A 5 FR DUAL LUMEN 13 9 CM PICC IN THE LEFT BASILIC VEIN. Interventional Vascular Procedure 06/11/18 00:00 IMPRESSION: SUCCESSFUL PLACEMENT OF A 5 FR DUAL LUMEN 13 9 CM PICC IN THE LEFT BASILIC VEIN. PICC Line Insertion 06/11/18 00:00 IMPRESSION: SUCCESSFUL PLACEMENT OF A 5 FR DUAL LUMEN 13 9 CM PICC IN THE LEFT BASILIC VEIN. Assessment & Plan - Diagnosis (1) Cellulitis of both lower extremities Is this a current diagnosis for this admission?: Yes (2) Chronic respiratory failure with hypoxia, on home O2 therapy Is this a current diagnosis for this admission?: Yes (3) Lymphedema Is this a current diagnosis for this admission?: Yes (5) Obesity, Class III, BMI 40-49.9 (morbid obesity) Is this a current diagnosis for this admission?: Yes (6) History of DVT (deep vein thrombosis) Is this a current diagnosis for this admission?: Yes - Plan Summary Plan Summary: I saw patient initially on 06/15/18. Currently not on any antibiotics as I believe his lower extremity erythema IPL due to stasis dermatitis. He does have a bad condition of lymphedema on bilateral lower extremity. I have ordered a ultrasound of the lower extremity history rule out DVT but it is not urgent and hence pending for tomorrow. Patient is unstable on his feet and has agreed to go for short-term rehab. Case management is aware and awaiting placement.
[2018-06-17] MEDS: TRAZODONE HCL 50 MG TABLET PO SCH (21:45)
[2018-06-17] MEDS: ATORVASTATIN CALCIUM 40 MG TABLET PO SCH (21:45)
[2018-06-17] MEDS: MONTELUKAST SODIUM 10 MG TABLET PO SCH (21:46)
[2018-06-17] MEDS: MELATONIN 5 MG TABLET PO SCH (21:46)
[2018-06-18] MEDS: IPRATROPIUM/ALBUTEROL 0.5-2.5 MG/3 ML AMPUL NEB SCH ×4 (01:07→19:41)
[2018-06-18] MEDS: FLUTICASONE/SALMETEROL DISKUS 250-50 MCG/DOSE IH SCH ×2 (05:15→17:45)
[2018-06-18] MEDS: PREGABALIN 75 MG CAPSULE PO SCH ×3 (05:15→21:35)
[2018-06-18] MEDS: LACTOBACILLUS ACIDOPHILUS 250 MG TAB PO SCH (08:53)
[2018-06-18] MEDS: FUROSEMIDE 20 MG TABLET PO SCH (08:54)
[2018-06-18] MEDS: CHOLECALCIFEROL (D3) 1,000 UNIT TABLET PO SCH (09:03)
[2018-06-18] MEDS: MULTIVIT-STRESS FORMULA/ZINC TABLET PO SCH (09:04)
[2018-06-18] MEDS: FOLIC ACID 1 MG TABLET PO SCH (09:04)
[2018-06-18] MEDS: CYANOCOBALAMIN (VITAMIN B-12) 1,000 MCG TABLET PO SCH (09:04)
[2018-06-18] MEDS: DOCUSATE SODIUM 100 MG CAPSULE PO SCH ×2 (09:04→17:45)
[2018-06-18] MEDS: RIVAROXABAN 10 MG TABLET PO SCH (09:04)
[2018-06-18] MEDS: MULTIVITAMIN TABLET PO SCH (09:04)
[2018-06-18] MEDS: LORATADINE 10 MG TABLET PO SCH (09:04)
[2018-06-18] MEDS: FLUTICASONE NASAL SPRAY 50 MCG/SPRY 120 SPRAY/16 GM NASL SCH ×2 (09:05→21:36)
[2018-06-18] MEDS: NORMAL SALINE 10 ML SDV (SCHEDULED) IV SCH ×2 (09:05→21:36)
--- NOTE | 2018-06-18 11:43 | PDOC PROGRESS REPORT ---
Subjective Progress Note for:: 06/18/18 Subjective:: The patient is a pleasant 62-year-old male with a past medical history significant for chronic bilateral lower extremity lymphedema with recurrent cellulitis. He is chronically oxygen dependent on 3 L of oxygen at home due to his underlying COPD. He is well-known to the hospitalist service for frequent admissions. The patient presented to the emergency room with cellulitis and increasing difficulty ambulating due to his lymphedema. He has completed a course of IV vancomycin. At this point the patient would like to pursue subacute rehabilitation at the time of discharge and he is currently awaiting a bed. Today when I saw the patient he is resting comfortably in the bed. He reports no overnight events. He denies fever chills. No chest pain, shortness of breath or cough. No nausea vomiting or diarrhea. No urinary complaints. He states he is still having difficulty ambulating on his lower extremities. He states he feels like the cellulitis is improved. Reason For Visit: LOWER EXTREMITIES CELLULITIS Physical Exam Vital Signs: Temp Pulse Resp BP Pulse Ox 98.4 F 81 16 100/59 L 96 06/18/18 07:16 06/18/18 07:45 06/18/18 07:45 06/18/18 07:16 06/18/18 07:45 Intake & Output 06/17/18 06/18/18 06/19/18 06:59 06:59 06:59 Intake Total 1030 856 Output Total 1310 1650 Balance -280 -794 Weight 133.5 kg 132.9 kg General appearance: PRESENT: no acute distress, obese, well-developed, other - Chronically ill-appearing Head exam: PRESENT: atraumatic, normocephalic Eye exam: PRESENT: conjunctiva pink, EOMI, PERRLA. ABSENT: scleral icterus Mouth exam: PRESENT: moist, tongue midline Respiratory exam: PRESENT: clear to auscultation lui. ABSENT: rales, rhonchi, wheezes Cardiovascular exam: PRESENT: RRR. ABSENT: diastolic murmur, rubs, systolic murmur GI/Abdominal exam: PRESENT: normal bowel sounds, soft. ABSENT: distended, guarding, mass, organolmegaly, rebound, tenderness Rectal exam: PRESENT: deferred Extremities exam: PRESENT: other - He has significant lymphedema in both of his lower extremities with significant venous stasis changes bilaterally. Significant edema. Neurological exam: PRESENT: alert, awake, oriented to person, oriented to place , oriented to time, oriented to situation, CN II-XII grossly intact. ABSENT: motor sensory deficit Psychiatric exam: PRESENT: appropriate affect, normal mood. ABSENT: homicidal ideation, suicidal ideation Results Laboratory Results: 06/17/18 04:50 06/17/18 04:50 Impressions: Guidance Fluoroscopy 06/11/18 00:00 IMPRESSION: SUCCESSFUL PLACEMENT OF A 5 FR DUAL LUMEN 13 9 CM PICC IN THE LEFT BASILIC VEIN. Interventional Vascular Procedure 06/11/18 00:00 IMPRESSION: SUCCESSFUL PLACEMENT OF A 5 FR DUAL LUMEN 13 9 CM PICC IN THE LEFT BASILIC VEIN. PICC Line Insertion 06/11/18 00:00 IMPRESSION: SUCCESSFUL PLACEMENT OF A 5 FR DUAL LUMEN 13 9 CM PICC IN THE LEFT BASILIC VEIN. Assessment & Plan - Diagnosis (1) Cellulitis of both lower extremities Is this a current diagnosis for this admission?: Yes Plan: He is completed a course of antibiotic therapy at this point. His cellulitis is resolved. (2) Lymphedema Is this a current diagnosis for this admission?: Yes Plan: This is an ongoing problem for the patient. He is going to pursue subacute rehabilitation at discharge. (3) Opiate dependence, continuous Is this a current diagnosis for this admission?: Yes Plan: Continue his home regimen. (4) Chronic respiratory failure Is this a current diagnosis for this admission?: Yes Plan: He is on 3 L of oxygen at baseline. He has chronic hypoxic respiratory failure due to his underlying COPD and obesity (5) COPD (chronic obstructive pulmonary disease) Is this a current diagnosis for this admission?: Yes Plan: No evidence of exacerbation (6) Morbid obesity Is this a current diagnosis for this admission?: Yes Plan: Dietary discretion is advised (7) Alcohol dependence Is this a current diagnosis for this admission?: Yes Plan: No evidence of withdrawal (8) Coronary artery disease Is this a current diagnosis for this admission?: Yes Plan: Stable on current regimen (9) Obstructive sleep apnea Is this a current diagnosis for this admission?: Yes Plan: He is at his baseline (10) DVT of axillary vein, chronic Is this a current diagnosis for this admission?: Yes (11) Chronic deep vein thrombosis (DVT) Is this a current diagnosis for this admission?: Yes Plan: He will continue Xarelto (12) Anemia Is this a current diagnosis for this admission?: Yes Plan: He has a normocytic anemia consistent with chronic disease. (13) Hypokalemia Is this a current diagnosis for this admission?: Yes Plan: Repleted and resolved (14) Ambulatory dysfunction Is this a current diagnosis for this admission?: Yes Plan: The patient would like to pursue subacute rehabilitation at discharge. (15) Full code status Is this a current diagnosis for this admission?: Yes - Time Time Spent with patient: 25-34 minutes - Inpatient Certification Medical Necessity: Other - Inpatient hospitalization remains necessary for disposition. The patient has opted to pursue subacute rehabilitation at discharge. He will be transferred to a facility as soon as a bed is found.
--- NOTE | 2018-06-18 13:23 | XCELERA REPORT ---
[address] [address] Lower Extremity Venous Evaluation Name: ANALY NEVAREZ Age: 63 yrs Gender: Male : 1955 Patient Status: Inpatient Patient Location: [address] [place] [address] Study Date: 06/18/2018 11:27 AM Procedure: Color flow and duplex imaging bilaterally of the veins of the lower extremities as well as the Common Femoral veins. Reason For Study: assessing DVT Ordering Physician: MARYAN DICKINSON Performed By: Meg Mclean Right Sided Venous Evaluation Normal vessel filling wall to wall, compression and augmentation as well as Colour flow down to the infrageniculate veins. Left Sided Venous Evaluation Normal vessel filling wall to wall, compression and augmentation as well as Colour flow down to the infrageniculate veins. Interpretation Summary No duplex evidence of DVT or obstruction in the bilateral lower extremities. : MARYAN DICKINSON > Aly Cruz
[2018-06-18] MEDS: ATORVASTATIN CALCIUM 40 MG TABLET PO SCH (21:35)
[2018-06-18] MEDS: MONTELUKAST SODIUM 10 MG TABLET PO SCH (21:35)
[2018-06-18] MEDS: MELATONIN 5 MG TABLET PO SCH (21:36)
[2018-06-18] MEDS: TRAZODONE HCL 50 MG TABLET PO SCH (21:36)
[2018-06-19] MEDS ORDERED: LABETALOL HCL INJ 200 MG/40 ML VIAL IV ONE (00:37)
[2018-06-19] MEDS: IPRATROPIUM/ALBUTEROL 0.5-2.5 MG/3 ML AMPUL NEB SCH ×4 (01:55→19:29)
[2018-06-19] MEDS: PREGABALIN 75 MG CAPSULE PO SCH ×3 (05:26→22:13)
[2018-06-19] MEDS: NORMAL SALINE 10 ML SDV (AFTER EACH USE) IV PRN (05:27)
[2018-06-19] MEDS: FLUTICASONE/SALMETEROL DISKUS 250-50 MCG/DOSE IH SCH ×2 (05:40→17:01)
[2018-06-19 06:30] LABS: ABSOLUTE EOSINOPHILS # (AUTO) 0.2 10^3/uL (0.0-0.6); ABSOLUTE LYMPHOCYTES (AUTO) 2.4 10^3/uL (0.5-4.7); ABSOLUTE MONOCYTES (AUTO) 1.2 10^3/uL (0.1-1.4); ABSOLUTE NEUT (AUTO) 4.1 10^3/uL (1.7-8.2); BASOPHILS % (AUTO) 0.5 % (0-2); EOSINOPHILS % (AUTO) 3.1 % (0-6); HEMATOCRIT 32.8 % (37.9-51.0); HEMOGLOBIN 10.7 g/dL (13.5-17.0); MEAN CORPUSCULAR HEMOGLOBIN 29.6 pg (27.0-33.4); MEAN CORPUSCULAR HGB CONC 32.7 g/dL (32.0-36.0); MEAN CORPUSCULAR VOLUME 90 fl (80-97); MONOCYTES % (AUTO) 14.9 % (3-13); PLATELET COUNT 245 10^3/uL (150-450); RED BLOOD COUNT 3.63 10^6/uL (4.35-5.55); RED CELL DISTRIBUTION WIDTH 19.1 % (11.5-14.0); SEGMENTED NEUTROPHILS % (AUTO) 51.5 % (42-78); TOTAL CELLS COUNTED % (AUTO) 100 %; WHITE BLOOD COUNT 7.9 10^3/uL (4.0-10.5)
[2018-06-19 06:55] LABS: ANION GAP 8 (5-19); BLOOD UREA NITROGEN 7 mg/dL (7-20); CALCIUM 9.2 mg/dL (8.4-10.2); CARBON DIOXIDE 34 mmol/L (22-30); CHLORIDE 102 mmol/L (98-107); GLUCOSE 105 mg/dL (75-110); POTASSIUM 4.2 mmol/L (3.6-5.0); SODIUM 143.9 mmol/L (137-145)
[2018-06-19] MEDS: FUROSEMIDE 20 MG TABLET PO SCH (09:14)
[2018-06-19] MEDS: CYANOCOBALAMIN (VITAMIN B-12) 1,000 MCG TABLET PO SCH (09:14)
[2018-06-19] MEDS: LACTOBACILLUS ACIDOPHILUS 250 MG TAB PO SCH (09:14)
[2018-06-19] MEDS: CHOLECALCIFEROL (D3) 1,000 UNIT TABLET PO SCH (09:14)
[2018-06-19] MEDS: RIVAROXABAN 10 MG TABLET PO SCH (09:14)
[2018-06-19] MEDS: MULTIVIT-STRESS FORMULA/ZINC TABLET PO SCH (09:14)
[2018-06-19] MEDS: LORATADINE 10 MG TABLET PO SCH (09:14)
[2018-06-19] MEDS: DOCUSATE SODIUM 100 MG CAPSULE PO SCH ×2 (09:14→17:01)
[2018-06-19] MEDS: FOLIC ACID 1 MG TABLET PO SCH (09:14)
[2018-06-19] MEDS: FLUTICASONE NASAL SPRAY 50 MCG/SPRY 120 SPRAY/16 GM NASL SCH ×2 (09:14→22:13)
[2018-06-19] MEDS: MULTIVITAMIN TABLET PO SCH (09:15)
[2018-06-19] MEDS: NORMAL SALINE 10 ML SDV (SCHEDULED) IV SCH ×2 (09:20→22:17)
[2018-06-19] MEDS: FENTANYL 100 MCG/HR PATCH.TD72 TD SCH (12:24)
--- NOTE | 2018-06-19 17:13 | PDOC PROGRESS REPORT ---
Subjective Progress Note for:: 06/19/18 Reason For Visit: LOWER EXTREMITIES CELLULITIS Physical Exam Vital Signs: Temp Pulse Resp BP Pulse Ox 98.7 F 81 18 102/52 L 92 06/18/18 15:09 06/19/18 14:05 06/19/18 14:05 06/18/18 15:09 06/19/18 01:55 Intake & Output 06/18/18 06/19/18 06/20/18 06:59 06:59 06:59 Intake Total 856 2080 Output Total 1650 Balance -794 2080 Weight 132.9 kg 134.4 kg General appearance: PRESENT: no acute distress, well-developed, well-nourished Head exam: PRESENT: atraumatic, normocephalic Eye exam: PRESENT: conjunctiva pink, EOMI, PERRLA. ABSENT: scleral icterus Ear exam: PRESENT: normal external ear exam Mouth exam: PRESENT: moist, tongue midline Neck exam: ABSENT: carotid bruit, JVD, lymphadenopathy, thyromegaly Respiratory exam: PRESENT: clear to auscultation lui. ABSENT: rales, rhonchi, wheezes Cardiovascular exam: PRESENT: RRR. ABSENT: diastolic murmur, rubs, systolic murmur Vascular exam: PRESENT: normal capillary refill GI/Abdominal exam: PRESENT: normal bowel sounds, soft. ABSENT: distended, guarding, mass, organolmegaly, rebound, tenderness Rectal exam: PRESENT: deferred Extremities exam: PRESENT: full ROM, other - bilateral lymphedema. ABSENT: calf tenderness, clubbing Neurological exam: PRESENT: alert, awake, oriented to person, oriented to place , oriented to time, oriented to situation, CN II-XII grossly intact. ABSENT: motor sensory deficit Psychiatric exam: PRESENT: appropriate affect, normal mood. ABSENT: homicidal ideation, suicidal ideation Skin exam: PRESENT: intact, rash, warm. ABSENT: cyanosis Results Laboratory Results: 06/19/18 05:30 06/19/18 05:30 06/19/18 06/19/18 05:30 05:30 WBC 7.9 RBC 3.63 L Hgb 10.7 L Hct 32.8 L MCV 90 MCH 29.6 MCHC 32.7 RDW 19.1 H Plt Count 245 Seg Neutrophils % 51.5 Lymphocytes % 30.0 Monocytes % 14.9 H Eosinophils % 3.1 Basophils % 0.5 Absolute Neutrophils 4.1 Absolute Lymphocytes 2.4 Absolute Monocytes 1.2 Absolute Eosinophils 0.2 Absolute Basophils 0.0 Sodium 143.9 Potassium 4.2 Chloride 102 Carbon Dioxide 34 H Anion Gap 8 BUN 7 Creatinine 0.85 Est GFR ( Amer) > 60 Est GFR (Non-Af Amer) > 60 Glucose 105 Calcium 9.2 Magnesium 1.9 Impressions: Guidance Fluoroscopy 06/11/18 00:00 IMPRESSION: SUCCESSFUL PLACEMENT OF A 5 FR DUAL LUMEN 13 9 CM PICC IN THE LEFT BASILIC VEIN. Interventional Vascular Procedure 06/11/18 00:00 IMPRESSION: SUCCESSFUL PLACEMENT OF A 5 FR DUAL LUMEN 13 9 CM PICC IN THE LEFT BASILIC VEIN. PICC Line Insertion 06/11/18 00:00 IMPRESSION: SUCCESSFUL PLACEMENT OF A 5 FR DUAL LUMEN 13 9 CM PICC IN THE LEFT BASILIC VEIN. Assessment & Plan - Time Time Spent with patient: 15-24 minutes Medications reviewed and adjusted accordingly: Yes Anticipated discharge: SNF Within: within 24 hours - Plan Summary Plan Summary: 1.Cellulitis of both lower extremity patient has completed his course of antibiotics. He understands that this will likely be a recurrent theme due to his underlying chronic lymphedema. 2. Lymphedema chronic 3. Continuous opiate dependence for chronic pain 4. Chronic respiratory failure on home oxygen 5. Stable coronary artery disease 6. Chronic obstructive pulmonary disease with no exacerbation 7. Morbid obesity 8. Alcohol dependence 9. Obstructive sleep apnea 10. Chronic DVT of axillary vein currently on Xarelto 11. Anemia 12. Plan is to DC in a.m.
[2018-06-19] MEDS: ATORVASTATIN CALCIUM 40 MG TABLET PO SCH (22:13)
[2018-06-19] MEDS: TRAZODONE HCL 50 MG TABLET PO SCH (22:13)
[2018-06-19] MEDS: MELATONIN 5 MG TABLET PO SCH (22:13)
[2018-06-19] MEDS: MONTELUKAST SODIUM 10 MG TABLET PO SCH (22:13)
[2018-06-20] MEDS: IPRATROPIUM/ALBUTEROL 0.5-2.5 MG/3 ML AMPUL NEB SCH ×4 (01:41→20:00)
[2018-06-20] MEDS ORDERED: NALOXONE HCL INJ/PF 0.4 MG/1 ML SDV ONE (05:46)
[2018-06-20] MEDS ORDERED: PROPOFOL INJ 200 MG/20 ML VIAL IV ONE (06:11)
[2018-06-20 06:15] LABS: ARTERIAL BLOOD BASE EXCESS 3.9 mmol/L; ARTERIAL BLOOD H2CO3 5.96 mmol/L (1.05-1.35); ARTERIAL BLOOD HCO3 41.3 mmol/L (20-26); ARTERIAL BLOOD O2 SATURATION 87.4 % (94-98); ARTERIAL BLOOD PO2 89.1 mmHg (80-100); ARTERIAL BLOOD TOTAL CO2 47.4 mmol/L (23-27)
[2018-06-20 06:16] LABS: ARTERIAL BLOOD FIO2 100%; ARTERIAL BLOOD PCO2 198.1 mmHg (35-45); ARTERIAL BLOOD PH 6.94 (7.35-7.45)
[2018-06-20] MEDS ORDERED: PROPOFOL 1,000 MG/100 ML INFUS..BTL IV ONE ×2 (06:20→11:08)
[2018-06-20 06:21] LABS: INTERNATIONAL RATION (INR) 1.47; PROTHROMBIN TIME 18.6 SEC (11.4-15.4)
[2018-06-20 06:22] LABS: PARTIAL THROMBOPLASTIN TIME 36.4 SEC (23.5-35.8)
[2018-06-20 06:26] LABS: ABSOLUTE EOSINOPHILS # (AUTO) 0.1 10^3/uL (0.0-0.6); ABSOLUTE NEUT (AUTO) 8.2 10^3/uL (1.7-8.2); ALANINE AMINOTRANSFERASE 31 U/L (21-72); ALBUMIN 3.2 g/dL (3.5-5.0); ALKALINE PHOSPHATASE 86 U/L (38-126); ANION GAP 11 (5-19); ASPARTATE AMINO TRANSFERASE 43 U/L (17-59); BASOPHILS % (AUTO) 0.3 % (0-2); BILIRUBIN,DIRECT 0.2 mg/dL (0.0-0.4); BILIRUBIN,TOTAL 0.2 mg/dL (0.2-1.3); BLOOD UREA NITROGEN 10 mg/dL (7-20); CALCIUM 9.2 mg/dL (8.4-10.2); CARBON DIOXIDE 35 mmol/L (22-30); CHLORIDE 100 mmol/L (98-107); EOSINOPHILS % (AUTO) 0.5 % (0-6); GLUCOSE 188 mg/dL (75-110); HEMATOCRIT 35.4 % (37.9-51.0); HEMOGLOBIN 11.3 g/dL (13.5-17.0); LYMPHOCYTES % (AUTO) 24.4 % (13-45); MEAN CORPUSCULAR HEMOGLOBIN 29.8 pg (27.0-33.4); MEAN CORPUSCULAR VOLUME 93 fl (80-97); MONOCYTES % (AUTO) 8.3 % (3-13); PLATELET COUNT 245 10^3/uL (150-450); POTASSIUM 5.6 mmol/L (3.6-5.0); RED BLOOD COUNT 3.81 10^6/uL (4.35-5.55); RED CELL DISTRIBUTION WIDTH 19.1 % (11.5-14.0); SEGMENTED NEUTROPHILS % (AUTO) 66.5 % (42-78); SODIUM 145.9 mmol/L (137-145); TOTAL CELLS COUNTED % (AUTO) 100 %; TOTAL PROTEIN 7.8 g/dL (6.3-8.2); WHITE BLOOD COUNT 12.4 10^3/uL (4.0-10.5)
[2018-06-20] MEDS ORDERED: NOREPINEPHRINE BITARTRATE INJ/PF 4 MG/4 ML SDV IV ONE (06:29)
[2018-06-20] MEDS ORDERED: FUROSEMIDE INJ/PF 40 MG/4 ML SDV ONE (06:29)
[2018-06-20] MEDS ORDERED: METHYLPREDNISOLONE INJ 125 MG/2 ML SDV ONE (06:29)
--- NOTE | 2018-06-20 06:32 | Progress Note ---
Provider Note Provider Note: Critical care/ACLS code note: Subjective: [employer]MENT INST[employer]ER was called at 0 553 when the patient became unresponsive with agonal breathing and with ashen/grayish color. ACLS code was called as the patient's pulse extremity was 52% on room air and with bagging and went up to the low 80s. The patient was still maintaining his pulse. He was immediately bagged and placed on monitor. He was having confusion earlier and therefore sedatives were held off last night. He has been more sleepy yesterday. Objective: Generally: Unresponsive obese male with agonal breathing, being bagged Vital signs-his blood pressure was 115/58 with a heart rate of 115. Pulse oximetry was up to 91% with bagging. Temperature was 97.3. Head - atraumatic, normocephalic. Pupils - equal, round and reactive to light and accommodation. Extraocular movements are intact. No scleral icterus. Oropharynx - moist mucous membranes and tongue. No pharyngeal erythema or exudate. Neck - supple. No JVD. Carotid pulses 2+ bilaterally. No carotid bruits. No palpable thyromegaly or lymphadenopathy. Cardiovascular - regular rate and rhythm. Normal S1 and S2. No murmurs, gallops or rubs. Lungs -diffusely coarse breath sounds with harsh vesicular breathing and Abdomen - soft and nontender. Positive bowel sounds. No palpable organomegaly or masses. Extremities -2+ bilateral lower extremity pitting edema, clubbing or cyanosis. Neuro - grossly non-focal. No lateralizing signs Skin -bilateral lower extremity erythema with induration consistent with his cellulitis and associated lymphedema and rectal exam - deferred. All labs from yesterday were reviewed. Stat ABG revealed: PH of 6.9, PCO2 of 198, PO2 of 89.1, bicarbonate of 41.3 and O2 sat of 87.4% on 100% FiO2 Assessment/plan: #1 Acute hypoxic and hypercarbic respiratory failure with CO2 narcosis, likely secondary to COPD acute exacerbation as well as possibly acute CHF/cor pulmonale and obstructive sleep apnea with noncompliance to CPAP. The patient was bagged and immediately transferred to the ICU then intubated by our DE ALCHOLIZER with #8 ET tube at 23 cm. Post intubation chest x-ray showed cardiomegaly with atelectasis in bilateral interstitial pulmonary edema. The patient was given rocuronium paralytic agent for intubation. ET tube was placed on first attempt. We will place the patient on IV Solu-Medrol as well as scheduled and as needed duo nebs and continue his IV antibiotic therapy with vancomycin and Zosyn. Is placed on mechanical ventilation and we have raised the rate to 24 given his severe hypercarbia. Pulmonary/critical care consult will be obtained. Stat labs including CBC, CMP, cardiac enzymes, d-dimer and ammonia level as well as coag profile are currently pending. The patient's pulse oximetry was up to 97% after being intubated. We will continue other plan of care. We will continue monitoring him closely. Critical care time spent so far: 60 minutes
[2018-06-20 06:43] LABS: CREATINE KINASE MB 0.62 ng/mL (<4.55); TROPONIN I 0.014 ng/mL
[2018-06-20] MEDS ORDERED: METHYLPREDNISOLONE INJ 125 MG/2 ML SDV IV ONE (06:45)
[2018-06-20] MEDS ORDERED: FUROSEMIDE INJ/PF 40 MG/4 ML SDV IV ONE (06:45)
[2018-06-20] MEDS: DEXTROSE 5%-WATER 250 ML with NOREPINEPHRINE BITARTRATE 4 MG IV PRN ×4 (06:58→17:06)
--- NOTE | 2018-06-20 07:00 | RADIOLOGY REPORT (SQ) ---
EXAM DESCRIPTION: XR CHEST 1 VIEW COMPLETED DATE/TME: 06/20/2018 00:00 CLINICAL HISTORY: Patient intubated; resp. failure COMPARISON: 03/31/2018 FINDINGS: Single frontal view of the chest. Endotracheal tube with tip 5 cm above the jose. NG tube with tip below the diaphragm. Left arm PICC with tip overlying the expected region of the SVC. Leads overlie the chest. Atherosclerotic calcification of the aortic arch. Heart is not enlarged. Linear left lower lung opacities. More confluent patchy bilateral perihilar opacities. No pneumothorax or large effusion. No acute osseous abnormalities. Upper abdominal soft tissues are unremarkable. IMPRESSION: 1. Patchy bilateral airspace opacities may be related to developing pneumonia or atelectasis. 2. Endotracheal tube in appropriate position.
[2018-06-20] MEDS: PREGABALIN 75 MG CAPSULE PO SCH ×3 (07:01→21:29)
[2018-06-20] MEDS: FLUTICASONE/SALMETEROL DISKUS 250-50 MCG/DOSE IH SCH ×2 (07:01→17:07)
[2018-06-20 08:12] LABS: ARTERIAL BLOOD BASE EXCESS 8.8 mmol/L; ARTERIAL BLOOD HCO3 37.7 mmol/L (20-26); ARTERIAL BLOOD O2 SATURATION 99.5 % (94-98); ARTERIAL BLOOD PH 7.31 (7.35-7.45); ARTERIAL BLOOD PO2 257.8 mmHg (80-100); ARTERIAL BLOOD TOTAL CO2 40.1 mmol/L (23-27)
[2018-06-20 08:17] LABS: ARTERIAL BLOOD FIO2 100%
[2018-06-20 08:20] LABS: ARTERIAL BLOOD PCO2 76.3 mmHg (35-45)
[2018-06-20] MEDS: METHYLPREDNISOLONE INJ 125 MG/2 ML SDV IV SCH ×3 (08:48→21:28)
--- NOTE | 2018-06-20 11:06 | PDOC CONSULTATION ---
Consultation Consult Date: 06/20/18 Attending physician:: MARYAN DICKINSON Consult reason:: Acute on chronic respiratory failure History of Present Illness Admission Date/PCP: 06/06/18 23:47 ZHENG MORA NP History of Present Illness: ANALY NEVAREZ is a 63 year old male,Presented to the emergency room 06/07 complaining of increasing leg pain is worked up for DVT and has history of venous stasis disease as well as chronic respiratory failure O2 dependent 3 L at home he is was well on at least until midnight last night however later he was found to be cyanotic and unresponsive subsequently was taken to the ICU where he was intubated and sedated Past Medical History Cardiac Medical History: Reports: Congestive Heart Failure, DVT, Myocardial Infarction, Hyperlipidema, Hypertension, Peripheral Vascular Disease, Pulmonary Embolism Pulmonary Medical History: Reports: Asthma, Bronchitis, Chronic Obstructive Pulmonary Disease (COPD), Pneumonia, Sleep Apnea Denies: Tuberculosis Neurological Medical History: Denies: Seizures GI Medical History: Reports: Cirrhosis - Alcoholic, Gastroesophageal Reflux Disease, Hiatal Hernia Psychiatric Medical History: Denies: Depression Infectious Medical History: Reports: Methicillin-Resistant Staph Aureus, Vancomycin-Resistant Enterococci - Recurrent cellulitis of right lower extremity Past Surgical History Past Surgical History: Reports: Cardiac Catheterization - stent x1, Cholecystectomy, Herniorrhaphy - mesh, Orthopedic Surgery - multiple back, Tonsillectomy, Vascular Surgery - filter placed, pt unsure where, Other - He had ventral hernia followed by SBO at [facility] few years ago Denies: Appendectomy, Coronary Artery Bypass Graft, Gastric Bypass Surgery, Pacemaker Social History Smoking Status: Current Every Day Smoker Cigarettes Packs Per Day: 2 Number of Years Smokin Last Time Smoked: 06/06/2018 1700 Frequency of Alcohol Use: Heavy Hx Recreational Drug Use: Yes Drugs: Marijuana Hx Prescription Drug Abuse: No Family History Family History: COPD, Hypertension Parental Family History Reviewed: No Children Family History Reviewed: No Sibling(s) Family History Reviewed.: No Medication/Allergy Home Medications: Atorvastatin Calcium 40 mg PO DAILY 06/07/18 Cholecalciferol (Vitamin D3) [Vitamin D3 5000 unit Capsule] 5,000 unit PO DAILY 06/07/18 Cyanocobalamin (Vitamin B-12) [Vitamin B-12] 1,000 mcg PO DAILY 06/07/18 Docusate Sodium [Colace] 100 mg PO BID 06/07/18 Fluticasone/Salmeterol [Advair 250-50 Diskus 28 dose] 1 inh IH Q12 06/07/18 Folic Acid [Folvite 1 mg Tablet] 1 mg PO DAILY 06/07/18 Furosemide [Lasix 20 mg Tablet] 20 mg PO QAM 06/07/18 Loratadine [Claritin] 10 mg PO DAILY 06/07/18 Melatonin 10 mg PO QHS 06/07/18 Mometasone Furoate [Nasonex] 1 spray NS Q12 06/07/18 Montelukast Sodium [Singulair 10 mg Tablet] 10 mg PO QHS 06/07/18 Multivitamin [Multiple Vitamins] 1 each PO DAILY 06/07/18 Naloxegol Oxalate [Movantik] 25 mg PO DAILY 06/07/18 Omeprazole 40 mg PO DAILY 06/07/18 Oxycodone HCl [Oxycodone HCl 10 MG Tablet] 10 mg PO Q6 06/07/18 Pregabalin [Lyrica] 150 mg PO Q8 06/07/18 Rivaroxaban [Xarelto] 20 mg PO DAILY 06/07/18 Tiotropium Orange [Spiriva Respimat] 2 puff IH DAILY 06/07/18 Tramadol HCl [Ultram] 50 mg PO TIDP PRN 06/07/18 Trazodone HCl [Desyrel] 300 mg PO QHS 06/07/18 Vitamin B Complex [Vitamin B Complex-100] 1 each PO DAILY 06/07/18 l Acidophil/B Lactis/B Longum [Florajen3 Capsule] 460 mg PO QAM 06/07/18 Allergies/Adverse Reactions: cephalexin monohydrate [From Keflex] Allergy (Intermediate, Verified 06/08/16 08 :54) codeine Allergy (Verified 06/08/16 08:54) morphine Allergy (Verified 06/08/16 08:54) Review of Systems ROS unobtainable: Due to endotracheal tube Physical Exam Vital Signs: Temp Pulse Resp BP Pulse Ox 98.4 F 71 24 H 104/57 L 95 06/20/18 07:20 06/20/18 08:20 06/20/18 08:20 06/20/18 07:20 06/20/18 08:20 Intake & Output 06/19/18 06/20/18 06/21/18 06:59 06:59 06:59 Intake Total 2079 216 Output Total 1050 Balance 2079 111 Weight 134.4 kg 134 kg 129.3 kg General appearance: PRESENT: no acute distress, disheveled, morbidly obese. ABSENT: cooperative Head exam: PRESENT: atraumatic, normocephalic Eye exam: PRESENT: conjunctiva pale. ABSENT: EOMI, nystagmus, periorbital swelling, scleral icterus Mouth exam: PRESENT: dry mucosa, neck supple, tongue midline, other - ET tube in place Neck exam: ABSENT: carotid bruit, JVD, lymphadenopathy, thyromegaly, tracheal deviation, tracheostomy Respiratory exam: PRESENT: decreased breath sounds, prolonged expiratory phas, rales, rhonchi, unlabored. ABSENT: retraction, stridor Cardiovascular exam: PRESENT: irregular rhythm Pulses: PRESENT: normal radial pulses GI/Abdominal exam: PRESENT: diminished bowel sounds, soft Gentrourinary exam: PRESENT: indwelling catheter Extremities exam: PRESENT: pedal edema - +4 venous stasis disease bilateral, other. ABSENT: clubbing, joint swelling Musculoskeletal exam: ABSENT: full ROM Neurological exam: ABSENT: awake Skin exam: PRESENT: dry, warm Results Laboratory Results: 06/20/18 05:45 06/20/18 05:45 06/20/18 06/20/18 06/20/18 05:45 05:45 05:45 WBC RBC Hgb Hct MCV MCH MCHC RDW Plt Count Seg Neutrophils % Lymphocytes % Monocytes % Eosinophils % Basophils % Absolute Neutrophils Absolute Lymphocytes Absolute Monocytes Absolute Eosinophils Absolute Basophils Carbonic Acid 5.96 H HCO3/H2CO3 Ratio 6:1 ABG pH 6.94 L* ABG pCO2 198.1 H* ABG pO2 89.1 ABG HCO3 41.3 H ABG O2 Saturation 87.4 L ABG Base Excess 3.9 FiO2 100% Sodium 145.9 H Potassium 5.6 H Chloride 100 Carbon Dioxide 35 H Anion Gap 11 BUN 10 Creatinine 1.18 Est GFR ( Amer) > 60 Est GFR (Non-Af Amer) > 60 Glucose 188 H Lactic Acid 0.8 Calcium 9.2 Magnesium 2.1 Total Bilirubin 0.2 AST 43 ALT 31 Alkaline Phosphatase 86 Ammonia Total Protein 7.8 Albumin 3.2 L 06/20/18 06/20/18 06/20/18 05:45 05:45 07:50 WBC 12.4 H RBC 3.81 L Hgb 11.3 L Hct 35.4 L MCV 93 MCH 29.8 MCHC 32.0 RDW 19.1 H Plt Count 245 Seg Neutrophils % 66.5 Lymphocytes % 24.4 Monocytes % 8.3 Eosinophils % 0.5 Basophils % 0.3 Absolute Neutrophils 8.2 Absolute Lymphocytes 3.0 Absolute Monocytes 1.0 Absolute Eosinophils 0.1 Absolute Basophils 0.0 Carbonic Acid 2.30 H HCO3/H2CO3 Ratio 16:1 ABG pH 7.31 L ABG pCO2 76.3 H* ABG pO2 257.8 H ABG HCO3 37.7 H ABG O2 Saturation 99.5 H ABG Base Excess 8.8 FiO2 100% Sodium Potassium Chloride Carbon Dioxide Anion Gap BUN Creatinine Est GFR ( Amer) Est GFR (Non-Af Amer) Glucose Lactic Acid Calcium Magnesium Total Bilirubin AST ALT Alkaline Phosphatase Ammonia 15.3 Total Protein Albumin 06/20/18 06/20/18 06/20/18 05:45 05:45 05:45 Creatine Kinase 73 CK-MB (CK-2) 0.62 Troponin I 0.014 NT-Pro-B Natriuret Pep 64 Impressions: Guidance Fluoroscopy 06/11/18 00:00 IMPRESSION: SUCCESSFUL PLACEMENT OF A 5 FR DUAL LUMEN 13 9 CM PICC IN THE LEFT BASILIC VEIN. Interventional Vascular Procedure 06/11/18 00:00 IMPRESSION: SUCCESSFUL PLACEMENT OF A 5 FR DUAL LUMEN 13 9 CM PICC IN THE LEFT BASILIC VEIN. PICC Line Insertion 06/11/18 00:00 IMPRESSION: SUCCESSFUL PLACEMENT OF A 5 FR DUAL LUMEN 13 9 CM PICC IN THE LEFT BASILIC VEIN. Chest X-Ray 06/20/18 00:00 IMPRESSION: 1. Patchy bilateral airspace opacities may be related to developing pneumonia or atelectasis. 2. Endotracheal tube in appropriate position. Assessment & Plan - Diagnosis (1) Morbid obesity Is this a current diagnosis for this admission?: Yes (2) Obstructive sleep apnea Is this a current diagnosis for this admission?: Yes Plan: Check to see if patient is a sleep study in the past otherwise nocturnal polysomnogram will continue CPAP with the settings used at home (3) COPD (chronic obstructive pulmonary disease) Qualifiers: COPD type: unspecified COPD Qualified Code(s): J44.9 - Chronic obstructive pulmonary disease, unspecified Is this a current diagnosis for this admission?: Yes Plan: Generic Name Dose Route Start Last Admin Trade Name Freq PRN Reason Stop Dose Admin Patient Own Medication 2 puff 06/10/18 13:30 Tiotropium Orange [Spiriva Respimat] 07/10/18 13:29 .DAILY MICHELLE Albuterol/Ipratropium 3 ml 06/09/18 14:00 06/20/18 08:16 Duoneb 3 Ml Ampul NEB 07/09/18 13:59 3 ml RTQ6 MICHELLE Fluticasone/Salmeterol 1 inh 06/10/18 18:00 06/20/18 07:01 Advair 250-50 Diskus 14 Dose/Diskus IH 07/10/18 17:59 Not Given Q12A MICHELLE Montelukast Sodium 10 mg 06/10/18 22:00 06/19/18 22:13 Singulair 10 Mg Tablet PO 07/10/18 21:59 10 mg QHS MICHELLE Fluticasone Propionate 1 spray 06/11/18 10:00 06/19/18 22:13 Flonase Nasal [place] 50 Mcg/[place] 16 Gm NASL 07/11/18 09:59 1 spr Q12 MICHELLE For the time being hold the Spiriva and Advair as well as the Singulair and Nasonex (4) Acute and chronic respiratory failure with hypoxia Is this a current diagnosis for this admission?: Yes Plan: To restore TH by blowing up PCO2 chest x-ray patient appears to have a right upper lobe infiltrate in addition we will get a CTA to rule out PE PaO2/FiO2 = 2751.0 =275 (5) Peripheral vascular disease Is this a current diagnosis for this admission?: Yes (6) GERD (gastroesophageal reflux disease) Qualifiers: Esophagitis presence: esophagitis presence not specified Qualified Code(s) : K21.9 - Gastro-esophageal reflux disease without esophagitis Is this a current diagnosis for this admission?: Yes Plan: Pepcid - Time Total Critical Time (Minutes): 60
[2018-06-20] MEDS: DOCUSATE SODIUM 100 MG CAPSULE PO SCH ×2 (11:13→17:07)
[2018-06-20] MEDS: MULTIVITAMIN TABLET PO SCH (11:13)
[2018-06-20] MEDS: NORMAL SALINE 10 ML SDV (SCHEDULED) IV SCH ×2 (11:14→21:30)
[2018-06-20] MEDS: PROPOFOL 1,000 MG/100 ML INFUS..BTL IV PRN ×3 (11:17→21:09)
[2018-06-20] MEDS: FAMOTIDINE INJ/PF 20 MG/2 ML SDV IV SCH ×2 (11:21→21:26)
[2018-06-20] MEDS: CHOLECALCIFEROL (D3) 1,000 UNIT TABLET PO SCH (11:21)
[2018-06-20] MEDS: FUROSEMIDE 20 MG TABLET PO SCH (11:21)
[2018-06-20] MEDS: LORATADINE 10 MG TABLET PO SCH (11:22)
[2018-06-20] MEDS: LACTOBACILLUS ACIDOPHILUS 250 MG TAB PO SCH (11:22)
[2018-06-20] MEDS: MULTIVIT-STRESS FORMULA/ZINC TABLET PO SCH (11:22)
[2018-06-20] MEDS: RIVAROXABAN 10 MG TABLET PO SCH (11:22)
[2018-06-20] MEDS: FOLIC ACID 1 MG TABLET PO SCH (11:23)
[2018-06-20] MEDS: FLUTICASONE NASAL SPRAY 50 MCG/SPRY 120 SPRAY/16 GM NASL SCH ×2 (11:23→21:32)
[2018-06-20] MEDS: CYANOCOBALAMIN (VITAMIN B-12) 1,000 MCG TABLET PO SCH (11:23)
--- NOTE | 2018-06-20 11:31 | EKG REPORT ---
SEVERITY:- BORDERLINE ECG - SINUS TACHYCARDIA BORDERLINE PROLONGED QT INTERVAL : Confirmed by: Danay Hutton MD 20-Jun-2018 11:30:32
--- NOTE | 2018-06-20 11:31 | EKG REPORT ---
SEVERITY:- ABNORMAL ECG - SINUS ARRHYTHMIA, RATE 57-90 PROLONGED QT INTERVAL : Confirmed by: Danay Hutton MD 20-Jun-2018 11:30:28
[2018-06-20 12:00] LABS: CREATINE KINASE MB 1.25 ng/mL (<4.55)
[2018-06-20] MEDS ORDERED: TRAMADOL HCL 50 MG TABLET NG PRN (12:00)
[2018-06-20 12:06] LABS: TROPONIN I 0.154 ng/mL
--- NOTE | 2018-06-20 14:27 | RADIOLOGY REPORT (SQ) ---
EXAM DESCRIPTION: CTA CHEST COMPLETED DATE/TIME: 06/20/2018 12:55 pm REASON FOR STUDY: sob COMPARISON: 7 CT chest exams since 01/13/2012, most recently 12/19/2017 TECHNIQUE: CT scan of the chest performed using helical scanning technique with dynamic intravenous contrast injection. Images reviewed with lung, soft tissue and bone windows. Reconstructed coronal and sagittal MPR images reviewed. Additional 3 dimensional post-processing performed to develop Maximal Intensity Projection images (RI P). All images stored on PACS. All CT scanners at this facility use dose modulation, iterative reconstruction, and/or weight based d osing when appropriate to reduce radiation dose to as low as reasonably achievable (ALARA). [facility]: Dose Right [facility]: CareDose [facility]: Dose Right [facility]: Teradose 4D [facility]: [employer] CONTRAST TYPE AND DOSE: contrast/concentration: Isovue 370.00 mg/ml; Total Contrast Delivered: 77.0 ml; Total Saline Delivered: 110.0 ml Contrast bolus optimized for the pulmonary arteries. Not diagnostic for the aorta. RENAL FUNCTION: Creatinine 0.8 RADIATION DOSE: CT Rad equipment meets quality standard of care and radiation dose reduction techniq ues were employed. CTDIvol: 15.5 - 22.5 mGy. DLP: 591 mGy-cm. . LIMITATIONS: None. FINDINGS: LUNGS AND PLEURA: There is bandlike airspace disease in the dependent portion of the right and left upper lobe and right and left posterior costophrenic sulci, likely atelectasis. Pneumonia could not entirely be excluded. No pneumothorax. No pleural effusions. AORTA AND GREAT VESSELS: No aneurysm. Contrast bolus not optimized for the aorta. HEART: No pericardial effusion. Moderate significant coronary artery calcifications. PULMONARY ARTERIES: No emboli visualized in the main pulmonary arteries or the segmental branches. HILAR AND MEDIASTINAL STRUCTURES: No identified masses or abnormal nodes. HARDWARE: Endotracheal tube tip in the midtrachea. Nasogastric tube tip and side port in the stomach . Left PICC line tip superior vena cava UPPER ABDOMEN: No significant findings. Limited exam. THYROID AND OTHER SOFT TISSUES: No masses. No adenopathy. BONES: Chronic appearing 25% upper endplate compressions at T7, T8, and T12. 3D MIPS: Confirm above findings. OTHER: No other significant finding. IMPRESSION: No CT angio evidence of acute pulmonary emboli. PICC line, endotracheal tube, nasogastric tube in good positioning. Bandlike airspace disease in the dependent portions of both lungs, likely atelectasis. COMMENT: Quality ID # [id number]: Final reports with documentation of one or more dose reduction techniques (e.g., Automated exposure control, adjustment of the mA and/or kV according to patient size, use of iterative reconstruction technique) TECHNICAL DOCUMENTATION: JOB ID: [id number] [employer]- All Rights Reserved Reading location - IP/workstation name: [email or web address]
[2018-06-20] MEDS ORDERED: ROCURONIUM BROMIDE INJ 50 MG/5 ML VIAL IV ONE (15:04)
--- NOTE | 2018-06-20 15:15 | PDOC PROGRESS REPORT ---
Subjective Progress Note for:: 06/20/18 Subjective:: Overnight events noted. Patient went into acute respiratory failure. Etiology still unclear. Was found to be hypercapnic with a PCO2 of more than 100 and pH of 6[address]9. [address] scan reveals no evidence of acute pulmonary emboli. There is possible atelectasis otherwise nothing of significance. Patient does receive opioids chronically but this is not acute and he did receive some Narcan with no effects Reason For Visit: LOWER EXTREMITIES CELLULITIS Physical Exam Vital Signs: Temp Pulse Resp BP Pulse Ox 98.1 F 57 L 24 H 131/86 H 94 06/20/18 12:00 06/20/18 14:00 06/20/18 14:00 06/20/18 12:00 06/20/18 14:00 Intake & Output 06/19/18 06/20/18 06/21/18 06:59 06:59 06:59 Intake Total 2080 2165 215 Output Total 1050 1000 Balance 2080 1115 -785 Weight 134.4 kg 134 kg 129.3 kg General appearance: PRESENT: no acute distress, morbidly obese, other - Intubated Head exam: PRESENT: atraumatic Eye exam: PRESENT: PERRLA Neck exam: ABSENT: carotid bruit, JVD, lymphadenopathy, thyromegaly Respiratory exam: PRESENT: clear to auscultation lui, other - Mechanical ventilation GI/Abdominal exam: PRESENT: ascites Rectal exam: PRESENT: black stool Extremities exam: PRESENT: other - Bilateral lower extremity lymphedema with swelling and erythema and chronic skin changes Neurological exam: PRESENT: other - Sedated Results Laboratory Results: 06/20/18 05:45 06/20/18 05:45 06/20/18 06/20/18 06/20/18 05:45 05:45 05:45 WBC RBC Hgb Hct MCV MCH MCHC RDW Plt Count Seg Neutrophils % Lymphocytes % Monocytes % Eosinophils % Basophils % Absolute Neutrophils Absolute Lymphocytes Absolute Monocytes Absolute Eosinophils Absolute Basophils Carbonic Acid 5.96 H HCO3/H2CO3 Ratio 6:1 ABG pH 6.94 L* ABG pCO2 198.1 H* ABG pO2 89.1 ABG HCO3 41.3 H ABG O2 Saturation 87.4 L ABG Base Excess 3.9 FiO2 100% Sodium 145.9 H Potassium 5.6 H Chloride 100 Carbon Dioxide 35 H Anion Gap 11 BUN 10 Creatinine 1.18 Est GFR ( Amer) > 60 Est GFR (Non-Af Amer) > 60 Glucose 188 H Lactic Acid 0.8 Calcium 9.2 Magnesium 2.1 Total Bilirubin 0.2 AST 43 ALT 31 Alkaline Phosphatase 86 Ammonia Total Protein 7.8 Albumin 3.2 L 06/20/18 06/20/18 06/20/18 05:45 05:45 07:50 WBC 12.4 H RBC 3.81 L Hgb 11.3 L Hct 35.4 L MCV 93 MCH 29.8 MCHC 32.0 RDW 19.1 H Plt Count 245 Seg Neutrophils % 66.5 Lymphocytes % 24.4 Monocytes % 8.3 Eosinophils % 0.5 Basophils % 0.3 Absolute Neutrophils 8.2 Absolute Lymphocytes 3.0 Absolute Monocytes 1.0 Absolute Eosinophils 0.1 Absolute Basophils 0.0 Carbonic Acid 2.30 H HCO3/H2CO3 Ratio 16:1 ABG pH 7.31 L ABG pCO2 76.3 H* ABG pO2 257.8 H ABG HCO3 37.7 H ABG O2 Saturation 99.5 H ABG Base Excess 8.8 FiO2 100% Sodium Potassium Chloride Carbon Dioxide Anion Gap BUN Creatinine Est GFR ( Amer) Est GFR (Non-Af Amer) Glucose Lactic Acid Calcium Magnesium Total Bilirubin AST ALT Alkaline Phosphatase Ammonia 15.3 Total Protein Albumin 06/20/18 06/20/18 06/20/18 05:45 05:45 05:45 Creatine Kinase 73 CK-MB (CK-2) 0.62 Troponin I 0.014 NT-Pro-B Natriuret Pep 64 06/20/18 06/20/18 06/20/18 10:30 10:30 10:30 Creatine Kinase 97 Cancelled CK-MB (CK-2) 1.25 Troponin I 0.154 NT-Pro-B Natriuret Pep 06/20/18 10:30 Creatine Kinase CK-MB (CK-2) Cancelled Troponin I Cancelled NT-Pro-B Natriuret Pep Impressions: Guidance Fluoroscopy 06/11/18 00:00 IMPRESSION: SUCCESSFUL PLACEMENT OF A 5 FR DUAL LUMEN 13 9 CM PICC IN THE LEFT BASILIC VEIN. Interventional Vascular Procedure 06/11/18 00:00 IMPRESSION: SUCCESSFUL PLACEMENT OF A 5 FR DUAL LUMEN 13 9 CM PICC IN THE LEFT BASILIC VEIN. PICC Line Insertion 06/11/18 00:00 IMPRESSION: SUCCESSFUL PLACEMENT OF A 5 FR DUAL LUMEN 13 9 CM PICC IN THE LEFT BASILIC VEIN. Chest X-Ray 06/20/18 00:00 IMPRESSION: 1. Patchy bilateral airspace opacities may be related to developing pneumonia or atelectasis. 2. Endotracheal tube in appropriate position. Chest/Abdomen CTA 06/20/18 09:17 IMPRESSION: No CT angio evidence of acute pulmonary emboli. PICC line, endotracheal tube, nasogastric tube in good positioning. Bandlike airspace disease in the dependent portions of both lungs, likely atelectasis. Assessment & Plan - Time Time Spent with patient: 25-34 minutes Medications reviewed and adjusted accordingly: Yes Anticipated discharge: SNF - Inpatient Certification Based on my medical assessment, after consideration of the patient's comorbidities, presenting symptoms, or acuity I expect that the services needed warrant INPATIENT care.: Yes Medical Necessity: Need Close Monitoring Due to Risk of Patient Decompensation, Need For Continuous Telemetry Monitoring, Risk of Complication if Not Cared For in Hospital, Other - Mechanical ventilation - Plan Summary Plan Summary: 1 acute respiratory failure, hypoxemic and hypercapnic with respiratory acidosis. Precise etiology is unclear. CTA is negative for PE and there is minimal evidence of overt pneumonia on chest x-ray. I will place him on empiric antibiotic 2. Hyper kalemia mild will repeat BMP in a.m. 3. Continuous opiate dependence for chronic pain 4. chronic lymphedema. 5. Stable coronary artery disease 6. Chronic obstructive pulmonary disease 7. Morbid obesity 8. Alcohol dependence 9. Obstructive sleep apnea 10. Chronic DVT of axillary vein currently on Xarelto 11. Respiratory acidosis secondary to respiratory arrest 12. .Cellulitis of both lower extremity patient has completed his course of antibiotics.
[2018-06-20 15:39] LABS: ARTERIAL BLOOD BASE EXCESS 6.5 mmol/L; ARTERIAL BLOOD H2CO3 1.38 mmol/L (1.05-1.35); ARTERIAL BLOOD HCO3 31.3 mmol/L (20-26); ARTERIAL BLOOD O2 SATURATION 97.3 % (94-98); ARTERIAL BLOOD PCO2 45.7 mmHg (35-45); ARTERIAL BLOOD PH 7.45 (7.35-7.45); ARTERIAL BLOOD PO2 91.5 mmHg (80-100); ARTERIAL BLOOD TOTAL CO2 32.7 mmol/L (23-27)
[2018-06-20 15:40] LABS: ARTERIAL BLOOD FIO2 80%
[2018-06-20 16:43] LABS: CREATINE KINASE MB 1.12 ng/mL (<4.55); TROPONIN I 0.132 ng/mL
--- NOTE | 2018-06-20 21:22 | EKG REPORT ---
SEVERITY:- ABNORMAL ECG - SINUS RHYTHM PROLONGED QT INTERVAL : Confirmed by: Danay Hutton MD 20-Jun-2018 21:22:15
[2018-06-20] MEDS: SCOPOLAMINE HYDROBROMIDE 1.5 MG PATCH.TD72 TD SCH (21:25)
[2018-06-20] MEDS: MONTELUKAST SODIUM 10 MG TABLET NG SCH (21:26)
[2018-06-20] MEDS: ATORVASTATIN CALCIUM 40 MG TABLET NG SCH (21:27)
[2018-06-20] MEDS: MELATONIN 5 MG TABLET PO SCH (21:29)
[2018-06-20] MEDS: TRAZODONE HCL 50 MG TABLET NG SCH (21:31)
[2018-06-20 22:59] LABS: TROPONIN I 0.101 ng/mL
[2018-06-21] MEDS: PROPOFOL 1,000 MG/100 ML INFUS..BTL IV PRN ×11 (00:02→23:04)
[2018-06-21] MEDS: IPRATROPIUM/ALBUTEROL 0.5-2.5 MG/3 ML AMPUL NEB SCH ×4 (03:04→20:12)
[2018-06-21] MEDS: METHYLPREDNISOLONE INJ 125 MG/2 ML SDV IV SCH ×3 (04:15→18:16)
[2018-06-21 05:53] LABS: ARTERIAL BLOOD BASE EXCESS 8.8 mmol/L; ARTERIAL BLOOD FIO2 85%; ARTERIAL BLOOD HCO3 32.9 mmol/L (20-26); ARTERIAL BLOOD O2 SATURATION 99.1 % (94-98); ARTERIAL BLOOD PCO2 43.2 mmHg (35-45); ARTERIAL BLOOD PO2 149.9 mmHg (80-100); ARTERIAL BLOOD TOTAL CO2 34.3 mmol/L (23-27)
[2018-06-21 06:08] LABS: ABSOLUTE MONOCYTES (AUTO) 0.9 10^3/uL (0.1-1.4); ABSOLUTE NEUT (AUTO) 10.6 10^3/uL (1.7-8.2); BASOPHILS % (AUTO) 0.1 % (0-2); HEMATOCRIT 35.6 % (37.9-51.0); HEMOGLOBIN 11.8 g/dL (13.5-17.0); LYMPHOCYTES % (AUTO) 8.1 % (13-45); MEAN CORPUSCULAR HEMOGLOBIN 29.8 pg (27.0-33.4); MEAN CORPUSCULAR HGB CONC 33.2 g/dL (32.0-36.0); MEAN CORPUSCULAR VOLUME 90 fl (80-97); MONOCYTES % (AUTO) 7.1 % (3-13); PLATELET COUNT 271 10^3/uL (150-450); RED BLOOD COUNT 3.97 10^6/uL (4.35-5.55); RED CELL DISTRIBUTION WIDTH 18.6 % (11.5-14.0); SEGMENTED NEUTROPHILS % (AUTO) 84.7 % (42-78); TOTAL CELLS COUNTED % (AUTO) 100 %; WHITE BLOOD COUNT 12.5 10^3/uL (4.0-10.5)
[2018-06-21 06:18] LABS: ALANINE AMINOTRANSFERASE 29 U/L (21-72); ALKALINE PHOSPHATASE 81 U/L (38-126); ANION GAP 8 (5-19); ASPARTATE AMINO TRANSFERASE 32 U/L (17-59); BILIRUBIN,DIRECT 0.3 mg/dL (0.0-0.4); BILIRUBIN,TOTAL 0.4 mg/dL (0.2-1.3); BLOOD UREA NITROGEN 11 mg/dL (7-20); CALCIUM 8.9 mg/dL (8.4-10.2); CARBON DIOXIDE 33 mmol/L (22-30); CHLORIDE 100 mmol/L (98-107); GLUCOSE 184 mg/dL (75-110); PHOSPHORUS 3.5 mg/dL (2.5-4.5); TOTAL PROTEIN 7.4 g/dL (6.3-8.2)
[2018-06-21] MEDS: FLUTICASONE/SALMETEROL DISKUS 250-50 MCG/DOSE IH SCH ×2 (06:23→17:10)
[2018-06-21] MEDS: PREGABALIN 75 MG CAPSULE PO SCH ×3 (06:23→21:49)
--- NOTE | 2018-06-21 06:48 | RADIOLOGY REPORT (SQ) ---
EXAM DESCRIPTION: XR CHEST 1 VIEW COMPLETED DATE/TME: 06/21/2018 06:00 CLINICAL HISTORY: 63 years Male, resp failure COMPARISON: One day prior. NUMBER OF VIEWS/TECHNIQUE: 1/AP FINDINGS: Moderate interstitial markings, small left basilar opacity, normal cardiac silhouette, atherosclerosis, tip of an endotracheal tube is 7.3 cm from the jose; consider 2 cm advancement of the endotracheal tube. No pneumothorax. Skeletal structures are stable. IMPRESSION: No significant change.
[2018-06-21] MEDS: LACTOBACILLUS ACIDOPHILUS 250 MG TAB NG SCH (08:33)
[2018-06-21] MEDS: FUROSEMIDE 20 MG TABLET NG SCH (08:34)
[2018-06-21] MEDS: DOCUSATE SODIUM 100 MG CAPSULE PO SCH ×2 (09:36→18:17)
[2018-06-21] MEDS: CHOLECALCIFEROL (D3) 1,000 UNIT TABLET NG SCH (09:36)
[2018-06-21] MEDS: MULTIVIT-STRESS FORMULA/ZINC TABLET NG SCH (09:37)
[2018-06-21] MEDS: RIVAROXABAN 10 MG TABLET NG SCH (09:37)
[2018-06-21] MEDS: LORATADINE 10 MG TABLET NG SCH (09:37)
[2018-06-21] MEDS: MULTIVITAMIN TABLET PO SCH (09:37)
[2018-06-21] MEDS: FOLIC ACID 1 MG TABLET NG SCH (09:37)
[2018-06-21] MEDS: FAMOTIDINE INJ/PF 20 MG/2 ML SDV IV SCH ×2 (09:37→21:48)
[2018-06-21] MEDS: NORMAL SALINE 10 ML SDV (SCHEDULED) IV SCH ×2 (09:38→21:50)
[2018-06-21] MEDS: FLUTICASONE NASAL SPRAY 50 MCG/SPRY 120 SPRAY/16 GM NASL SCH ×2 (09:38→21:50)
[2018-06-21] MEDS: CYANOCOBALAMIN (VITAMIN B-12) 1,000 MCG TABLET NG SCH (09:38)
[2018-06-21] MEDS: MIDAZOLAM 2 MG/2 ML INJ IV PRN ×3 (11:09→20:19)
--- NOTE | 2018-06-21 11:35 | EKG REPORT ---
SEVERITY:- ABNORMAL ECG - SINUS RHYTHM PROLONGED QT INTERVAL : Confirmed by: Danay Hutton MD 21-Jun-2018 11:34:14
--- NOTE | 2018-06-21 11:35 | EKG REPORT ---
SEVERITY:- ABNORMAL ECG - SINUS RHYTHM PROLONGED QT INTERVAL : Confirmed by: Danay Hutton MD 21-Jun-2018 11:34:10
[2018-06-21 13:00] LABS: ARTERIAL BLOOD BASE EXCESS 10.5 mmol/L; ARTERIAL BLOOD H2CO3 1.23 mmol/L (1.05-1.35); ARTERIAL BLOOD HCO3 33.9 mmol/L (20-26); ARTERIAL BLOOD PCO2 40.8 mmHg (35-45); ARTERIAL BLOOD PH 7.54 (7.35-7.45); ARTERIAL BLOOD PO2 65.9 mmHg (80-100); ARTERIAL BLOOD TOTAL CO2 35.2 mmol/L (23-27)
[2018-06-21 13:02] LABS: ARTERIAL BLOOD FIO2 45%
--- NOTE | 2018-06-21 13:15 | PDOC PROGRESS REPORT ---
Subjective Progress Note for:: 06/21/18 Subjective:: intubated sedated Reason For Visit: LOWER EXTREMITIES CELLULITIS Physical Exam Vital Signs: Temp Pulse Resp BP Pulse Ox 97.7 F 75 24 H 130/72 H 92 06/21/18 07:11 06/21/18 08:07 06/21/18 08:07 06/21/18 07:11 06/21/18 08:07 Intake & Output 06/20/18 06/21/18 06/22/18 06:59 06:59 06:59 Intake Total 2165 698 68 Output Total 1050 3200 Balance 1115 -2502 68 Weight 134 kg 129.8 kg General appearance: PRESENT: no acute distress, disheveled, morbidly obese. ABSENT: cooperative Head exam: PRESENT: atraumatic, normocephalic Eye exam: PRESENT: conjunctiva pale. ABSENT: nystagmus, periorbital swelling, scleral icterus Mouth exam: PRESENT: dry mucosa, neck supple, tongue midline, other - ET tube in place Neck exam: ABSENT: carotid bruit, JVD, lymphadenopathy, thyromegaly, tracheal deviation, tracheostomy Respiratory exam: PRESENT: decreased breath sounds, prolonged expiratory phas, rhonchi, unlabored. ABSENT: retraction, stridor Cardiovascular exam: PRESENT: RRR, +S1, +S2, tachycardia Pulses: PRESENT: normal radial pulses GI/Abdominal exam: PRESENT: diminished bowel sounds, soft Gentrourinary exam: PRESENT: indwelling catheter Extremities exam: ABSENT: clubbing, joint swelling Musculoskeletal exam: ABSENT: deformity, dislocation Neurological exam: ABSENT: awake Skin exam: PRESENT: dry, warm Results Laboratory Results: 06/21/18 05:45 06/21/18 05:45 06/20/18 06/21/18 06/21/18 15:30 05:45 05:45 WBC 12.5 H RBC 3.97 L Hgb 11.8 L Hct 35.6 L MCV 90 MCH 29.8 MCHC 33.2 RDW 18.6 H Plt Count 271 Seg Neutrophils % 84.7 H Lymphocytes % 8.1 L Monocytes % 7.1 Eosinophils % 0.0 Basophils % 0.1 Absolute Neutrophils 10.6 H Absolute Lymphocytes 1.0 Absolute Monocytes 0.9 Absolute Eosinophils 0.0 Absolute Basophils 0.0 Carbonic Acid 1.38 H 1.30 HCO3/H2CO3 Ratio 22:1 25:1 ABG pH 7.45 7.50 H ABG pCO2 45.7 H 43.2 ABG pO2 91.5 149.9 H ABG HCO3 31.3 H 32.9 H ABG O2 Saturation 97.3 99.1 H ABG Base Excess 6.5 8.8 FiO2 80% 85% Sodium Potassium Chloride Carbon Dioxide Anion Gap BUN Creatinine Est GFR ( Amer) Est GFR (Non-Af Amer) Glucose Calcium Phosphorus Magnesium Total Bilirubin AST ALT Alkaline Phosphatase Total Protein Albumin 06/21/18 05:45 WBC RBC Hgb Hct MCV MCH MCHC RDW Plt Count Seg Neutrophils % Lymphocytes % Monocytes % Eosinophils % Basophils % Absolute Neutrophils Absolute Lymphocytes Absolute Monocytes Absolute Eosinophils Absolute Basophils Carbonic Acid HCO3/H2CO3 Ratio ABG pH ABG pCO2 ABG pO2 ABG HCO3 ABG O2 Saturation ABG Base Excess FiO2 Sodium 141.0 Potassium 4.0 D Chloride 100 Carbon Dioxide 33 H Anion Gap 8 BUN 11 Creatinine 0.83 Est GFR ( Amer) > 60 Est GFR (Non-Af Amer) > 60 Glucose 184 H Calcium 8.9 Phosphorus 3.5 Magnesium 2.0 Total Bilirubin 0.4 AST 32 ALT 29 Alkaline Phosphatase 81 Total Protein 7.4 Albumin 3.0 L 06/20/18 06/20/18 06/20/18 05:45 05:45 05:45 Creatine Kinase 73 CK-MB (CK-2) 0.62 Troponin I 0.014 NT-Pro-B Natriuret Pep 64 06/20/18 06/20/18 06/20/18 10:30 10:30 10:30 Creatine Kinase 97 Cancelled CK-MB (CK-2) 1.25 Troponin I 0.154 NT-Pro-B Natriuret Pep 06/20/18 06/20/18 06/20/18 10:30 16:02 16:02 Creatine Kinase 78 CK-MB (CK-2) Cancelled 1.12 Troponin I Cancelled 0.132 NT-Pro-B Natriuret Pep 06/20/18 06/20/18 22:15 22:15 Creatine Kinase 63 CK-MB (CK-2) 1.00 Troponin I 0.101 NT-Pro-B Natriuret Pep Impressions: Guidance Fluoroscopy 06/11/18 00:00 IMPRESSION: SUCCESSFUL PLACEMENT OF A 5 FR DUAL LUMEN 13 9 CM PICC IN THE LEFT BASILIC VEIN. Interventional Vascular Procedure 06/11/18 00:00 IMPRESSION: SUCCESSFUL PLACEMENT OF A 5 FR DUAL LUMEN 13 9 CM PICC IN THE LEFT BASILIC VEIN. PICC Line Insertion 06/11/18 00:00 IMPRESSION: SUCCESSFUL PLACEMENT OF A 5 FR DUAL LUMEN 13 9 CM PICC IN THE LEFT BASILIC VEIN. Chest/Abdomen CTA 06/20/18 09:17 IMPRESSION: No CT angio evidence of acute pulmonary emboli. PICC line, endotracheal tube, nasogastric tube in good positioning. Bandlike airspace disease in the dependent portions of both lungs, likely atelectasis. Chest X-Ray 06/21/18 06:00 IMPRESSION: No significant change. Assessment & Plan - Diagnosis (1) Morbid obesity Is this a current diagnosis for this admission?: Yes Plan: Unchanged (2) Obstructive sleep apnea Is this a current diagnosis for this admission?: Yes Plan: Check to see if patient is a sleep study in the past otherwise nocturnal polysomnogram will continue CPAP with the settings used at home (3) COPD (chronic obstructive pulmonary disease) Qualifiers: COPD type: unspecified COPD Qualified Code(s): J44.9 - Chronic obstructive pulmonary disease, unspecified Is this a current diagnosis for this admission?: Yes Plan: Generic Name Dose Route Start Last Admin Trade Name Freq PRN Reason Stop Dose Admin Patient Own Medication 2 puff 06/10/18 13:30 Tiotropium [place] [Spiriva Respimat] 07/10/18 13:29 .DAILY MICHELLE Albuterol/Ipratropium 3 ml 06/09/18 14:00 06/20/18 08:16 Duoneb 3 Ml Ampul NEB 07/09/18 13:59 3 ml RTQ6 MICHELLE Fluticasone/Salmeterol 1 inh 06/10/18 18:00 06/20/18 07:01 Advair 250-50 Diskus 14 Dose/Diskus IH 07/10/18 17:59 Not Given Q12A MICHELLE Montelukast Sodium 10 mg 06/10/18 22:00 06/19/18 22:13 Singulair 10 Mg Tablet PO 07/10/18 21:59 10 mg QHS MICHELLE Fluticasone Propionate 1 spray 06/11/18 10:00 06/19/18 22:13 Flonase Nasal [place] 50 Mcg/[place] 16 Gm NASL 07/11/18 09:59 1 spr Q12 [facility] For the time being hold the Spiriva and Advair as well as the Singulair and Nasonex (4) Acute and chronic respiratory failure with hypoxia Is this a current diagnosis for this admission?: Yes Plan: chest x-ray patient appears to have a right upper lobe infiltrate PaO2/FiO2 = 150.85 =177 (5) Peripheral vascular disease Is this a current diagnosis for this admission?: Yes (6) GERD (gastroesophageal reflux disease) Qualifiers: Esophagitis presence: esophagitis presence not specified Qualified Code(s) : K21.9 - Gastro-esophageal reflux disease without esophagitis Is this a current diagnosis for this admission?: Yes Plan: Pepcid - Time Total Critical Time (Minutes): 45
--- NOTE | 2018-06-21 13:24 | PDOC PROGRESS REPORT ---
Subjective Progress Note for:: 06/21/18 Subjective:: . Patient went into acute respiratory failure. Etiology still unclear. Was found to be hypercapnic with a PCO2 of more than 100 and pH of 6.9. CT scan reveals no evidence of acute pulmonary emboli. There is possible atelectasis otherwise nothing of significance. Patient does receive opioids chronically but this is not acute and he did receive some Narcan with no effects He remains intubated and sedated. He is also receiving Levophed as his blood pressure is borderline off the Levophed. CT reveals no evidence of pulmonary emboli. Patient was actually on Xarelto prior to this episode. Still unclear what the sentinel event is. Patient will also start weaning as tolerated. Reason For Visit: LOWER EXTREMITIES CELLULITIS Physical Exam Vital Signs: Temp Pulse Resp BP Pulse Ox 97.7 F 65 20 115/67 92 06/21/18 12:00 06/21/18 12:00 06/21/18 12:00 06/21/18 12:00 06/21/18 12:41 Intake & Output 06/20/18 06/21/18 06/22/18 06:59 06:59 06:59 Intake Total 2165 698 388 Output Total 1050 3200 450 Balance 1115 -2502 -62 Weight 134 kg 129.8 kg General appearance: PRESENT: no acute distress, well-developed, well-nourished, other - On mechanical ventilation Head exam: PRESENT: atraumatic, normocephalic Eye exam: PRESENT: conjunctiva pink, EOMI, PERRLA. ABSENT: scleral icterus Mouth exam: PRESENT: moist, tongue midline Neck exam: ABSENT: carotid bruit, JVD, lymphadenopathy, thyromegaly Respiratory exam: PRESENT: clear to auscultation lui, decreased breath sounds, symmetrical. ABSENT: rales, rhonchi, wheezes Cardiovascular exam: PRESENT: RRR, +S1, +S2. ABSENT: diastolic murmur, rubs, systolic murmur Pulses: PRESENT: normal dorsalis pedis pul Vascular exam: PRESENT: normal capillary refill GI/Abdominal exam: PRESENT: normal bowel sounds, soft. ABSENT: distended, guarding, mass, organolmegaly, rebound, tenderness Rectal exam: PRESENT: deferred Extremities exam: PRESENT: other - Bilateral chronic lymphedema with erythema lower extremities. ABSENT: calf tenderness, clubbing, pedal edema Neurological exam: PRESENT: other - Sedated. ABSENT: motor sensory deficit Skin exam: PRESENT: dry, intact, rash, warm, other - Chronic skin changes bilaterally. ABSENT: cyanosis Results Laboratory Results: 06/21/18 05:45 06/21/18 05:45 06/20/18 06/21/18 06/21/18 15:30 05:45 05:45 WBC 12.5 H RBC 3.97 L Hgb 11.8 L Hct 35.6 L MCV 90 MCH 29.8 MCHC 33.2 RDW 18.6 H Plt Count 271 Seg Neutrophils % 84.7 H Lymphocytes % 8.1 L Monocytes % 7.1 Eosinophils % 0.0 Basophils % 0.1 Absolute Neutrophils 10.6 H Absolute Lymphocytes 1.0 Absolute Monocytes 0.9 Absolute Eosinophils 0.0 Absolute Basophils 0.0 Carbonic Acid 1.38 H 1.30 HCO3/H2CO3 Ratio 22:1 25:1 ABG pH 7.45 7.50 H ABG pCO2 45.7 H 43.2 ABG pO2 91.5 149.9 H ABG HCO3 31.3 H 32.9 H ABG O2 Saturation 97.3 99.1 H ABG Base Excess 6.5 8.8 FiO2 80% 85% Sodium Potassium Chloride Carbon Dioxide Anion Gap BUN Creatinine Est GFR ( Amer) Est GFR (Non-Af Amer) Glucose Calcium Phosphorus Magnesium Total Bilirubin AST ALT Alkaline Phosphatase Total Protein Albumin 06/21/18 06/21/18 05:45 12:50 WBC RBC Hgb Hct MCV MCH MCHC RDW Plt Count Seg Neutrophils % Lymphocytes % Monocytes % Eosinophils % Basophils % Absolute Neutrophils Absolute Lymphocytes Absolute Monocytes Absolute Eosinophils Absolute Basophils Carbonic Acid 1.23 HCO3/H2CO3 Ratio 27:1 ABG pH 7.54 H ABG pCO2 40.8 ABG pO2 65.9 L ABG HCO3 33.9 H ABG O2 Saturation 95.0 ABG Base Excess 10.5 FiO2 45% Sodium 141.0 Potassium 4.0 D Chloride 100 Carbon Dioxide 33 H Anion Gap 8 BUN 11 Creatinine 0.83 Est GFR ( Amer) > 60 Est GFR (Non-Af Amer) > 60 Glucose 184 H Calcium 8.9 Phosphorus 3.5 Magnesium 2.0 Total Bilirubin 0.4 AST 32 ALT 29 Alkaline Phosphatase 81 Total Protein 7.4 Albumin 3.0 L 06/20/18 06/20/18 06/20/18 05:45 05:45 05:45 Creatine Kinase 73 CK-MB (CK-2) 0.62 Troponin I 0.014 NT-Pro-B Natriuret Pep 64 06/20/18 06/20/18 06/20/18 10:30 10:30 10:30 Creatine Kinase 97 Cancelled CK-MB (CK-2) 1.25 Troponin I 0.154 NT-Pro-B Natriuret Pep 06/20/18 06/20/18 06/20/18 10:30 16:02 16:02 Creatine Kinase 78 CK-MB (CK-2) Cancelled 1.12 Troponin I Cancelled 0.132 NT-Pro-B Natriuret Pep 06/20/18 06/20/18 22:15 22:15 Creatine Kinase 63 CK-MB (CK-2) 1.00 Troponin I 0.101 NT-Pro-B Natriuret Pep Impressions: Guidance Fluoroscopy 06/11/18 00:00 IMPRESSION: SUCCESSFUL PLACEMENT OF A 5 FR DUAL LUMEN 13 9 CM PICC IN THE LEFT BASILIC VEIN. Interventional Vascular Procedure 06/11/18 00:00 IMPRESSION: SUCCESSFUL PLACEMENT OF A 5 FR DUAL LUMEN 13 9 CM PICC IN THE LEFT BASILIC VEIN. PICC Line Insertion 06/11/18 00:00 IMPRESSION: SUCCESSFUL PLACEMENT OF A 5 FR DUAL LUMEN 13 9 CM PICC IN THE LEFT BASILIC VEIN. Chest/Abdomen CTA 06/20/18 09:17 IMPRESSION: No CT angio evidence of acute pulmonary emboli. PICC line, endotracheal tube, nasogastric tube in good positioning. Bandlike airspace disease in the dependent portions of both lungs, likely atelectasis. Chest X-Ray 06/21/18 06:00 IMPRESSION: No significant change. Assessment & Plan - Time Time Spent with patient: 15-24 minutes Medications reviewed and adjusted accordingly: Yes Anticipated discharge: SNF - Inpatient Certification Based on my medical assessment, after consideration of the patient's comorbidities, presenting symptoms, or acuity I expect that the services needed warrant INPATIENT care.: Yes Medical Necessity: Need for Nebulizer Therapy and Monitoring of Response, Risk of Complication if Not Cared For in Hospital, Other - On mechanical ventilation - Plan Summary Plan Summary: 1 acute respiratory failure, hypoxemic and hypercapnic with respiratory acidosis. Precise etiology is still unclear. CTA is negative for PE and there is minimal evidence of overt pneumonia on chest x-ray. Mild leukocytosis is likely secondary to steroid . Cont on empiric antibiotic 2. Hyper kalemia mild corrected 3. Continuous opiate dependence for chronic pain 4. chronic lymphedema. 5. Elevated troponin likely secondary to demand ischemia. Telemetry has been consulted for further management 6. Chronic obstructive pulmonary disease continue bronchodilators and steroids 7. Morbid obesity 8. Alcohol dependence 9. Obstructive sleep apnea 10. Chronic DVT of axillary vein currently on Xarelto 11. Respiratory acidosis secondary to respiratory arrest now corrected. He is actually now somewhat alkalotic. Vent settings will be reviewed 12. .Cellulitis of both lower extremity patient has completed his course of antibiotics.
[2018-06-21] MEDS: ACETYLCYSTEINE 20% SOLN 800 MG/4 ML VIAL.NEB NEB SCH ×2 (13:49→20:17)
--- NOTE | 2018-06-21 18:45 | XCELERA REPORT ---
[address] [address] Transthoracic Echocardiogram Report Name: ANALY NEVAREZ Age: 63 yrs Gender: Male : 1955 Patient Status: Inpatient Patient Location: ICU^601^A Study Date: 06/21/2018 09:00 AM Height: 69 in Weight: 285 lb BSA: 2.4 m2 Procedure: A complete two-dimensional transthoracic echocardiogram was performed (2D, M-mode, spectral and color flow Doppler). The study was technically difficult with many images being suboptimal in quality. Reason For Study: Resp distress Ordering Physician: DOMINICK TUCKER Performed By: Meg Mclean Interpretation Summary The left ventricular ejection fraction is normal. There is mild concentric left ventricular hypertrophy. The left ventricle is grossly normal size. Doppler measurements suggest impaired left ventricular relaxation, which is associated with grade I/IV or mild diastolic dysfunction Wall motion cannot be accurately commented on, but no definite regional wall motion abnormalities noted. The right ventricle is mildly dilated. Right ventricular function cannot be assessed due to poor image quality. The right atrium is mildly dilated. The left atrium is mildly dilated. There is no mitral valve stenosis. There is a trace amount of mitral regurgitation There is no aortic valve stenosis No aortic regurgitation is present. There is no tricuspid stenosis. No tricuspid regurgitation. The aortic root is not well visualized but is probably normal size. The inferior vena cava appeared dilated and decreased < 50% with respiration (RAP 15-20 mmHg) There is no pericardial effusion. MMode/2D Measurements & Calculations RVDd: 3.3 cm LVIDd: 5.5 cm FS: 37.7 % Ao root diam: 2.8 cm IVSd: 1.1 cm LVIDs: 3.4 cm EDV(Teich): 145.6 ml Ao root area: 6.1 cm2 LVPWd: 1.1 cm ESV(Teich): 47.7 ml EF(Teich): 67.3 % Doppler Measurements & Calculations MV E max symone: MV dec slope: Ao V2 max: LV V1 max P.0 cm/sec 589.6 cm/sec2 142.8 cm/sec 6.6 mmHg MV A max symone: MV dec time: 0.14 secAo max PG: LV V1 max: 97.8 cm/sec 8.2 mmHg 128.9 cm/sec MV E/A: 0.86 PA V2 max: TR max symone: 103.9 cm/sec 151.0 cm/sec PA max P.3 mmHg TR max P.1 mmHg Left Ventricle The left ventricle is grossly normal size. There is mild concentric left ventricular hypertrophy. The left ventricular ejection fraction is normal. Doppler measurements suggest impaired left ventricular relaxation, which is associated with grade I/IV or mild diastolic dysfunction. Wall motion cannot be accurately commented on, but no definite regional wall motion abnormalities noted. Right Ventricle The right ventricle is mildly dilated. Right ventricular function cannot be assessed due to poor image quality. Atria The right atrium is mildly dilated. The left atrium is mildly dilated. Interarterial septum not well visualized and not well dopplered. Cannot comment on ASD/PFO presence. Mitral Valve The mitral valve is grossly normal. There is no mitral valve stenosis. There is a trace amount of mitral regurgitation. Aortic Valve The aortic valve opens well. There is no aortic valve stenosis. No aortic regurgitation is present. Tricuspid Valve The tricuspid valve is not well visualized secondary to technical limitations. There is no tricuspid stenosis. No tricuspid regurgitation. Pulmonic Valve The pulmonic valve is not well visualized. Great Vessels The aortic root is not well visualized but is probably normal size. The inferior vena cava appeared dilated and decreased < 50% with respiration (RAP 15-20 mmHg). Effusions There is no pericardial effusion. : DOMINICK TUCKER > Dominick Tucker
[2018-06-21] MEDS: NORMAL SALINE 1000 ML 1,000 ML IV PRN (20:04)
[2018-06-21] MEDS: TRAZODONE HCL 50 MG TABLET NG SCH (21:49)
[2018-06-21] MEDS: MELATONIN 5 MG TABLET PO SCH (21:50)
[2018-06-21] MEDS: MONTELUKAST SODIUM 10 MG TABLET NG SCH (21:51)
[2018-06-21] MEDS: ATORVASTATIN CALCIUM 40 MG TABLET NG SCH (21:51)
--- NOTE | 2018-06-21 23:29 | PDOC CONSULTATION ---
Consultation Consult Date: 06/20/18 Attending physician:: IVAN MEDEL Consult reason:: Bradycardia History of Present Illness Admission Date/PCP: 06/06/18 23:47 ZHENG MORA NP Patient complains of: Patient in respiratory failure being intubated and sedated History of Present Illness: ANALY NEVAREZ is a 63 year old male,Presented to the emergency room 06/07 complaining of increasing leg pain is worked up for DVT and has history of venous stasis disease as well as chronic respiratory failure O2 dependent 3 L at home he is was well on at least until midnight last night however later he was found to be cyanotic and unresponsive subsequently was taken to the ICU where he was intubated and sedated. This morning patient was noted to have bradycardia, intermittent transient, therefore I was asked to evaluate patient. Rhythm strips were noted to be evaluated. Patient was noted to have mild sinus pauses but none exceeding 2.5 seconds. Blood pressure has been noted to be stable during these episodes. Past Medical History Cardiac Medical History: Reports: Congestive Heart Failure, DVT, Myocardial Infarction, Hyperlipidema, Hypertension, Peripheral Vascular Disease, Pulmonary Embolism Pulmonary Medical History: Reports: Asthma, Bronchitis, Chronic Obstructive Pulmonary Disease (COPD), Pneumonia, Sleep Apnea Denies: Tuberculosis Neurological Medical History: Denies: Seizures GI Medical History: Reports: Cirrhosis - Alcoholic, Gastroesophageal Reflux Disease, Hiatal Hernia Psychiatric Medical History: Denies: Depression Infectious Medical History: Reports: Methicillin-Resistant Staph Aureus, Vancomycin-Resistant Enterococci - Recurrent cellulitis of right lower extremity Past Surgical History Past Surgical History: Reports: Cardiac Catheterization - stent x1, Cholecystectomy, Herniorrhaphy - mesh, Orthopedic Surgery - multiple back, Tonsillectomy, Vascular Surgery - filter placed, pt unsure where, Other - He had ventral hernia followed by SBO at [facility] few years ago Denies: Appendectomy, Coronary Artery Bypass Graft, Gastric Bypass Surgery, Pacemaker Social History Information Source: [facility] Records Smoking Status: Current Every Day Smoker Cigarettes Packs Per Day: 2 Number of Years Smokin Last Time Smoked: 06/06/2018 1700 Frequency of Alcohol Use: Heavy Hx Recreational Drug Use: Yes Drugs: Marijuana Hx Prescription Drug Abuse: No - Advance Directive Resuscitation Status: Full Code Family History Family History: COPD, Hypertension Parental Family History Reviewed: Yes Children Family History Reviewed: Yes Sibling(s) Family History Reviewed.: Yes Medication/Allergy Home Medications: Atorvastatin Calcium 40 mg PO DAILY 06/07/18 Cholecalciferol (Vitamin D3) [Vitamin D3 5000 unit Capsule] 5,000 unit PO DAILY 06/07/18 Cyanocobalamin (Vitamin B-12) [Vitamin B-12] 1,000 mcg PO DAILY 06/07/18 Docusate Sodium [Colace] 100 mg PO BID 06/07/18 Fluticasone/Salmeterol [Advair 250-50 Diskus 28 dose] 1 inh IH Q12 06/07/18 Folic Acid [Folvite 1 mg Tablet] 1 mg PO DAILY 06/07/18 Furosemide [Lasix 20 mg Tablet] 20 mg PO QAM 06/07/18 Loratadine [Claritin] 10 mg PO DAILY 06/07/18 Melatonin 10 mg PO QHS 06/07/18 Mometasone Furoate [Nasonex] 1 spray NS Q12 06/07/18 Montelukast Sodium [Singulair 10 mg Tablet] 10 mg PO QHS 06/07/18 Multivitamin [Multiple Vitamins] 1 each PO DAILY 06/07/18 Naloxegol Oxalate [Movantik] 25 mg PO DAILY 06/07/18 Omeprazole 40 mg PO DAILY 06/07/18 Oxycodone HCl [Oxycodone HCl 10 MG Tablet] 10 mg PO Q6 06/07/18 Pregabalin [Lyrica] 150 mg PO Q8 06/07/18 Rivaroxaban [Xarelto] 20 mg PO DAILY 06/07/18 Tiotropium [place] [Spiriva Respimat] 2 puff IH DAILY 06/07/18 Tramadol HCl [Ultram] 50 mg PO TIDP PRN 06/07/18 Trazodone HCl [Desyrel] 300 mg PO QHS 06/07/18 Vitamin B Complex [Vitamin B Complex-100] 1 each PO DAILY 06/07/18 l Acidophil/B Lactis/B Longum [Florajen3 Capsule] 460 mg PO QAM 06/07/18 Allergies/Adverse Reactions: cephalexin monohydrate [From Keflex] Allergy (Intermediate, Verified 06/08/16 08 :54) codeine Allergy (Verified 06/08/16 08:54) morphine Allergy (Verified 06/08/16 08:54) Review of Systems ROS unobtainable: Due to endotracheal tube Physical Exam Vital Signs: Temp Pulse Resp BP Pulse Ox 98.2 F 56 L 24 H 135/80 H 95 06/20/18 19:15 06/20/18 18:00 06/20/18 18:00 06/20/18 18:00 06/20/18 18:00 Intake & Output 06/19/18 06/20/18 06/21/18 06:59 06:59 06:59 Intake Total 2080 2165 394 Output Total 1050 2175 Balance 2080 1115 -1781 Weight 134.4 kg 134 kg 129.3 kg Exam: GENERAL: well-nourished and in no acute distress. Patient is intubated and sedated. Orientation cannot be checked HEAD: Atraumatic, normocephalic. EYES: Pupils equal round and reactive to light, extraocular movements could not be checked, sclera anicteric, conjunctiva are normal. ENT: TMs normal, nares patent, oropharynx clear without exudates. Moist mucous membranes. No oral ulcerations or bleeding gums noted NECK: supple without lymphadenopathy or JVD. Trachea is central. No cervical or axillary lymphadenopathy noted. Carotids are 2+ LUNGS: Breath sounds mostly clear to auscultation patient is noted to have bibasal crackles at the extreme bases CHEST: Palpation of the chest wall shows no significant chest wall tenderness or abnormalities. HEART: [place] INCUBATOR TENDER, No PSH, 2/6 [place] aortic area, 1/6 [place] systolic murmur mitral area , no rubs or gallops. ABDOMEN: Soft, no significant tenderness appreciated, normoactive bowel sounds. No guarding, no rebound. No rigidity noted . No masses appreciated. EXTREMITIES: Pedal pulses are 1-2+, no calf tenderness noted, 1+ pedal edema noted. No clubbing or cyanosis. NEUROLOGICAL: The patient cannot participate in the neurological exam but no facial asymmetry noted. Extremities slightly hypotonic PSYCH: This cannot be evaluated. Patient cannot participate. SKIN: No significant ecchymosis, rash, or signs of pruritus noted. MUSCULOSKELETAL EXAM: No significant joint swelling noted. Patient cannot participate in musculoskeletal exam Results Laboratory Results: 06/20/18 05:45 06/20/18 05:45 06/20/18 06/20/18 06/20/18 05:45 05:45 05:45 WBC RBC Hgb Hct MCV MCH MCHC RDW Plt Count Seg Neutrophils % Lymphocytes % Monocytes % Eosinophils % Basophils % Absolute Neutrophils Absolute Lymphocytes Absolute Monocytes Absolute Eosinophils Absolute Basophils Carbonic Acid 5.96 H HCO3/H2CO3 Ratio 6:1 ABG pH 6.94 L* ABG pCO2 198.1 H* ABG pO2 89.1 ABG HCO3 41.3 H ABG O2 Saturation 87.4 L ABG Base Excess 3.9 FiO2 100% Sodium 145.9 H Potassium 5.6 H Chloride 100 Carbon Dioxide 35 H Anion Gap 11 BUN 10 Creatinine 1.18 Est GFR ( Amer) > 60 Est GFR (Non-Af Amer) > 60 Glucose 188 H Lactic Acid 0.8 Calcium 9.2 Magnesium 2.1 Total Bilirubin 0.2 AST 43 ALT 31 Alkaline Phosphatase 86 Ammonia Total Protein 7.8 Albumin 3.2 L 06/20/18 06/20/18 06/20/18 05:45 05:45 07:50 WBC 12.4 H RBC 3.81 L Hgb 11.3 L Hct 35.4 L MCV 93 MCH 29.8 MCHC 32.0 RDW 19.1 H Plt Count 245 Seg Neutrophils % 66.5 Lymphocytes % 24.4 Monocytes % 8.3 Eosinophils % 0.5 Basophils % 0.3 Absolute Neutrophils 8.2 Absolute Lymphocytes 3.0 Absolute Monocytes 1.0 Absolute Eosinophils 0.1 Absolute Basophils 0.0 Carbonic Acid 2.30 H HCO3/H2CO3 Ratio 16:1 ABG pH 7.31 L ABG pCO2 76.3 H* ABG pO2 257.8 H ABG HCO3 37.7 H ABG O2 Saturation 99.5 H ABG Base Excess 8.8 FiO2 100% Sodium Potassium Chloride Carbon Dioxide Anion Gap BUN Creatinine Est GFR ( Amer) Est GFR (Non-Af Amer) Glucose Lactic Acid Calcium Magnesium Total Bilirubin AST ALT Alkaline Phosphatase Ammonia 15.3 Total Protein Albumin 06/20/18 15:30 WBC RBC Hgb Hct MCV MCH MCHC RDW Plt Count Seg Neutrophils % Lymphocytes % Monocytes % Eosinophils % Basophils % Absolute Neutrophils Absolute Lymphocytes Absolute Monocytes Absolute Eosinophils Absolute Basophils Carbonic Acid 1.38 H HCO3/H2CO3 Ratio 22:1 ABG pH 7.45 ABG pCO2 45.7 H ABG pO2 91.5 ABG HCO3 31.3 H ABG O2 Saturation 97.3 ABG Base Excess 6.5 FiO2 80% Sodium Potassium Chloride Carbon Dioxide Anion Gap BUN Creatinine Est GFR ( Amer) Est GFR (Non-Af Amer) Glucose Lactic Acid Calcium Magnesium Total Bilirubin AST ALT Alkaline Phosphatase Ammonia Total Protein Albumin 06/20/18 06/20/18 06/20/18 05:45 05:45 05:45 Creatine Kinase 73 CK-MB (CK-2) 0.62 Troponin I 0.014 NT-Pro-B Natriuret Pep 64 06/20/18 06/20/18 06/20/18 10:30 10:30 10:30 Creatine Kinase 97 Cancelled CK-MB (CK-2) 1.25 Troponin I 0.154 NT-Pro-B Natriuret Pep 06/20/18 06/20/18 06/20/18 10:30 16:02 16:02 Creatine Kinase 78 CK-MB (CK-2) Cancelled 1.12 Troponin I Cancelled 0.132 NT-Pro-B Natriuret Pep EKG Comments: Sinus rhythm, no acute ST-T wave changes are noted, frequent APCs noted Impressions: Guidance Fluoroscopy 06/11/18 00:00 IMPRESSION: SUCCESSFUL PLACEMENT OF A 5 FR DUAL LUMEN 13 9 CM PICC IN THE LEFT BASILIC VEIN. Interventional Vascular Procedure 06/11/18 00:00 IMPRESSION: SUCCESSFUL PLACEMENT OF A 5 FR DUAL LUMEN 13 9 CM PICC IN THE LEFT BASILIC VEIN. PICC Line Insertion 06/11/18 00:00 IMPRESSION: SUCCESSFUL PLACEMENT OF A 5 FR DUAL LUMEN 13 9 CM PICC IN THE LEFT BASILIC VEIN. Chest X-Ray 06/20/18 00:00 IMPRESSION: 1. Patchy bilateral airspace opacities may be related to developing pneumonia or atelectasis. 2. Endotracheal tube in appropriate position. Chest/Abdomen CTA 06/20/18 09:17 IMPRESSION: No CT angio evidence of acute pulmonary emboli. PICC line, endotracheal tube, nasogastric tube in good positioning. Bandlike airspace disease in the dependent portions of both lungs, likely atelectasis. Assessment & Plan - Diagnosis (1) Bradycardia Is this a current diagnosis for this admission?: Yes (2) Respiratory failure Qualifiers: Chronicity: acute on chronic Respiratory failure complication: hypoxia and hypercapnia Qualified Code(s): J96.21 - Acute and chronic respiratory failure with hypoxia; J96.22 - Acute and chronic respiratory failure with hypercapnia; J96.22 - Acute and chronic respiratory failure with hypercapnia; J96.22 - Acute and chronic respiratory failure with hypercapnia Is this a current diagnosis for this admission?: Yes (3) COPD (chronic obstructive pulmonary disease) Qualifiers: Chronic bronchitis type: unspecified Is this a current diagnosis for this admission?: Yes (4) Cellulitis of both lower extremities Is this a current diagnosis for this admission?: Yes (5) Coronary artery disease Qualifiers: Coronary Disease-Associated Artery/Lesion type: [place] artery [place] vs. transplanted heart: [place] heart Is this a current diagnosis for this admission?: Yes (6) Lymphedema Is this a current diagnosis for this admission?: Yes (7) Morbid obesity Is this a current diagnosis for this admission?: Yes (8) Obstructive sleep apnea Is this a current diagnosis for this admission?: Yes - Notes Notes: Possibly related to vagal stimulation. This is not uncommon in intubated patient, especially during early intubation. Start patient on scopolamine patch. COPD: Continue therapy prescribed by the picking tech. Cellulitis both lower legs: Management being left to hospitalist. Continue antibiotic therapy as needed. CAD: Twelve-lead EKG is nonacute. Continue to follow EKGs. Lymphedema: Recommend chronic management. Morbid obesity: Currently stable patient will benefit from gradual weight loss. Sleep apnea syndrome: Patient currently intubated and being artificially ventilated. Once extubated would need CPAP/BiPAP therapy. Edge Cutter following the patient. - Time Time Spent: 30 to 50 Minutes - More than 50% of the time spent coordinating care , discussing management plans with involved caregivers. Management plans discussed with involved personnels. Medical decision making was of moderate to high complexity, patient's has multiple comorbidities. Medications reviewed and adjusted accordingly: Yes
[2018-06-22] MEDS: PROPOFOL 1,000 MG/100 ML INFUS..BTL IV PRN ×8 (02:00→21:53)
[2018-06-22] MEDS: IPRATROPIUM/ALBUTEROL 0.5-2.5 MG/3 ML AMPUL NEB SCH ×4 (02:29→20:27)
[2018-06-22] MEDS: NORMAL SALINE 1000 ML 1,000 ML IV PRN ×2 (04:05→15:47)
[2018-06-22] MEDS: PREGABALIN 75 MG CAPSULE PO SCH ×3 (05:43→21:05)
[2018-06-22] MEDS: FLUTICASONE/SALMETEROL DISKUS 250-50 MCG/DOSE IH SCH ×2 (05:43→17:26)
[2018-06-22] MEDS: METHYLPREDNISOLONE INJ 125 MG/2 ML SDV IV SCH ×3 (05:46→18:29)
[2018-06-22 06:22] LABS: ARTERIAL BLOOD BASE EXCESS 8.2 mmol/L; ARTERIAL BLOOD FIO2 70%; ARTERIAL BLOOD H2CO3 1.26 mmol/L (1.05-1.35); ARTERIAL BLOOD HCO3 32.2 mmol/L (20-26); ARTERIAL BLOOD O2 SATURATION 93.4 % (94-98); ARTERIAL BLOOD PO2 61.4 mmHg (80-100); ARTERIAL BLOOD TOTAL CO2 33.5 mmol/L (23-27)
[2018-06-22 06:32] LABS: ABSOLUTE LYMPHOCYTES (AUTO) 1.3 10^3/uL (0.5-4.7); ABSOLUTE MONOCYTES (AUTO) 1.9 10^3/uL (0.1-1.4); ABSOLUTE NEUT (AUTO) 13.5 10^3/uL (1.7-8.2); HEMATOCRIT 32.2 % (37.9-51.0); HEMOGLOBIN 10.7 g/dL (13.5-17.0); LYMPHOCYTES % (AUTO) 7.8 % (13-45); MEAN CORPUSCULAR HEMOGLOBIN 29.2 pg (27.0-33.4); MEAN CORPUSCULAR HGB CONC 33.1 g/dL (32.0-36.0); MEAN CORPUSCULAR VOLUME 88 fl (80-97); MONOCYTES % (AUTO) 11.4 % (3-13); PLATELET COUNT 245 10^3/uL (150-450); RED BLOOD COUNT 3.66 10^6/uL (4.35-5.55); RED CELL DISTRIBUTION WIDTH 19.1 % (11.5-14.0); SEGMENTED NEUTROPHILS % (AUTO) 80.8 % (42-78); TOTAL CELLS COUNTED % (AUTO) 100 %; WHITE BLOOD COUNT 16.8 10^3/uL (4.0-10.5)
[2018-06-22 06:50] LABS: ALANINE AMINOTRANSFERASE 22 U/L (21-72); ALBUMIN 2.7 g/dL (3.5-5.0); ALKALINE PHOSPHATASE 60 U/L (38-126); ANION GAP 10 (5-19); ASPARTATE AMINO TRANSFERASE 20 U/L (17-59); BILIRUBIN,DIRECT 0.2 mg/dL (0.0-0.4); BILIRUBIN,TOTAL 0.2 mg/dL (0.2-1.3); BLOOD UREA NITROGEN 12 mg/dL (7-20); CALCIUM 8.4 mg/dL (8.4-10.2); CARBON DIOXIDE 30 mmol/L (22-30); CHLORIDE 104 mmol/L (98-107); GLUCOSE 150 mg/dL (75-110); PHOSPHORUS 3.2 mg/dL (2.5-4.5); POTASSIUM 3.3 mmol/L (3.6-5.0); SODIUM 143.8 mmol/L (137-145); TOTAL PROTEIN 6.7 g/dL (6.3-8.2)
--- NOTE | 2018-06-22 07:48 | RADIOLOGY REPORT (SQ) ---
EXAM DESCRIPTION: XR CHEST 1 VIEW COMPLETED DATE/TME: 06/22/2018 06:00 CLINICAL HISTORY: 63 years Male, resp failure COMPARISON: One day prior. NUMBER OF VIEWS/TECHNIQUE: 1/AP FINDINGS: Moderate opacity of bilateral lower lungs, moderate interstitial markings, moderate cardiac enlargement, adequate appearing enteric tube tip is 6.9 cm from the jose, adequate appearing enteric tube obscured at its tip. Left subclavian PICC tip at the cavoatrial junction. No significant pneumothorax. Skeletal structures are stable. IMPRESSION: No significant change.
[2018-06-22] MEDS: ACETYLCYSTEINE 20% SOLN 800 MG/4 ML VIAL.NEB NEB SCH ×2 (08:44→20:26)
[2018-06-22] MEDS: NORMAL SALINE 10 ML SDV (SCHEDULED) IV SCH ×2 (09:25→21:05)
[2018-06-22] MEDS: FOLIC ACID 1 MG TABLET NG SCH (09:26)
[2018-06-22] MEDS: MULTIVIT-STRESS FORMULA/ZINC TABLET NG SCH (09:26)
[2018-06-22] MEDS: CHOLECALCIFEROL (D3) 1,000 UNIT TABLET NG SCH (09:26)
[2018-06-22] MEDS: MULTIVITAMIN TABLET PO SCH (09:26)
[2018-06-22] MEDS: FAMOTIDINE INJ/PF 20 MG/2 ML SDV IV SCH ×2 (09:26→21:05)
[2018-06-22] MEDS: DOCUSATE SODIUM 100 MG CAPSULE PO SCH ×2 (09:26→17:26)
[2018-06-22] MEDS: LACTOBACILLUS ACIDOPHILUS 250 MG TAB NG SCH (09:26)
[2018-06-22] MEDS: FUROSEMIDE 20 MG TABLET NG SCH (09:27)
[2018-06-22] MEDS: LORATADINE 10 MG TABLET NG SCH (09:27)
[2018-06-22] MEDS: RIVAROXABAN 10 MG TABLET NG SCH (09:27)
[2018-06-22] MEDS: CYANOCOBALAMIN (VITAMIN B-12) 1,000 MCG TABLET NG SCH (09:28)
[2018-06-22] MEDS: FLUTICASONE NASAL SPRAY 50 MCG/SPRY 120 SPRAY/16 GM NASL SCH ×2 (09:28→21:04)
[2018-06-22] MEDS: POTASSIUM CHLORIDE 20 MEQ/50 ML RTU IV SCH ×2 (10:18→11:42)
[2018-06-22] MEDS: FENTANYL 100 MCG/HR PATCH.TD72 TD SCH (11:06)
[2018-06-22] MEDS: LEVOFLOXACIN 750 MG/D5W RTU 750 MG/150 ML RTUPB IV SCH (11:06)
[2018-06-22] MEDS: TOBRAMYCIN SULFATE NEB 40 MG/ML 30 ML NEB SCH ×2 (11:34→20:27)
[2018-06-22] MEDS: MIDAZOLAM 2 MG/2 ML INJ IV PRN (13:44)
--- NOTE | 2018-06-22 15:15 | PDOC PROGRESS REPORT ---
Subjective Progress Note for:: 06/22/18 Subjective:: . Patient went into acute respiratory failure. Etiology still unclear. Was found to be hypercapnic with a PCO2 of more than [address] of [address] scan reveals no evidence of acute pulmonary emboli. There is possible atelectasis otherwise nothing of significance. Patient does receive opioids chronically but this is not acute and he did receive some Narcan with no effects He remains intubated and sedated. He is also off Levophed CT reveals no evidence of pulmonary emboli. Patient was actually on Xarelto prior to this episode. Still unclear what the sentinel event is. Patient unable to tolerate weaning as he is on 75% FIO2 Reason For Visit: LOWER EXTREMITIES CELLULITIS Physical Exam Vital Signs: Temp Pulse Resp BP Pulse Ox 97.3 F 68 18 115/90 H 88 L 06/22/18 15:00 06/22/18 14:33 06/22/18 15:00 06/22/18 14:57 06/22/18 15:00 Intake & Output 06/21/18 06/22/18 06/23/18 06:59 06:59 06:59 Intake Total 698 1797 1273 Output Total 3200 3210 530 Balance -2502 -1413 743 Weight 129.8 kg 128.4 kg General appearance: PRESENT: no acute distress, morbidly obese, other Head exam: PRESENT: atraumatic - Mechanical ventilation Mouth exam: PRESENT: dry mucosa Respiratory exam: PRESENT: decreased breath sounds, symmetrical, unlabored, other - Intubated. ABSENT: rhonchi Cardiovascular exam: PRESENT: RRR. ABSENT: diastolic murmur, rubs, systolic murmur Pulses: PRESENT: normal dorsalis pedis pul Extremities exam: PRESENT: other - Chronic bilateral lymphedema Neurological exam: PRESENT: other - Arouses on current sedation Results Laboratory Results: 06/22/18 05:10 06/22/18 05:10 06/22/18 06/22/18 06/22/18 05:10 05:10 05:10 WBC 16.8 H RBC 3.66 L Hgb 10.7 L Hct 32.2 L MCV 88 MCH 29.2 MCHC 33.1 RDW 19.1 H Plt Count 245 Seg Neutrophils % 80.8 H Lymphocytes % 7.8 L Monocytes % 11.4 Eosinophils % 0.0 Basophils % 0.0 Absolute Neutrophils 13.5 H Absolute Lymphocytes 1.3 Absolute Monocytes 1.9 H Absolute Eosinophils 0.0 Absolute Basophils 0.0 Carbonic Acid 1.26 HCO3/H2CO3 Ratio 25:1 ABG pH 7.50 H ABG pCO2 42.0 ABG pO2 61.4 L ABG HCO3 32.2 H ABG O2 Saturation 93.4 L ABG Base Excess 8.2 FiO2 70% Sodium 143.8 Potassium 3.3 L Chloride 104 Carbon Dioxide 30 Anion Gap 10 BUN 12 Creatinine 0.82 Est GFR ( Amer) > 60 Est GFR (Non-Af Amer) > 60 Glucose 150 H Calcium 8.4 Phosphorus 3.2 Magnesium 2.0 Total Bilirubin 0.2 AST 20 ALT 22 Alkaline Phosphatase 60 Total Protein 6.7 Albumin 2.7 L 06/20/18 06/20/18 06/20/18 05:45 05:45 05:45 Creatine Kinase 73 CK-MB (CK-2) 0.62 Troponin I 0.014 NT-Pro-B Natriuret Pep 64 06/20/18 06/20/18 06/20/18 10:30 10:30 10:30 Creatine Kinase 97 Cancelled CK-MB (CK-2) 1.25 Troponin I 0.154 NT-Pro-B Natriuret Pep 06/20/18 06/20/18 06/20/18 10:30 16:02 16:02 Creatine Kinase 78 CK-MB (CK-2) Cancelled 1.12 Troponin I Cancelled 0.132 NT-Pro-B Natriuret Pep 06/20/18 06/20/18 22:15 22:15 Creatine Kinase 63 CK-MB (CK-2) 1.00 Troponin I 0.101 NT-Pro-B Natriuret Pep Impressions: Guidance Fluoroscopy 06/11/18 00:00 IMPRESSION: SUCCESSFUL PLACEMENT OF A 5 FR DUAL LUMEN 13 9 CM PICC IN THE LEFT BASILIC VEIN. Interventional Vascular Procedure 06/11/18 00:00 IMPRESSION: SUCCESSFUL PLACEMENT OF A 5 FR DUAL LUMEN 13 9 CM PICC IN THE LEFT BASILIC VEIN. PICC Line Insertion 06/11/18 00:00 IMPRESSION: SUCCESSFUL PLACEMENT OF A 5 FR DUAL LUMEN 13 9 CM PICC IN THE LEFT BASILIC VEIN. Chest/Abdomen CTA 06/20/18 09:17 IMPRESSION: No CT angio evidence of acute pulmonary emboli. PICC line, endotracheal tube, nasogastric tube in good positioning. Bandlike airspace disease in the dependent portions of both lungs, likely atelectasis. Chest X-Ray 06/22/18 06:00 IMPRESSION: No significant change. Assessment & Plan - Time Time Spent with patient: 25-34 minutes Medications reviewed and adjusted accordingly: Yes Anticipated discharge: SNF Disposition: 1 acute respiratory failure, hypoxemic and hypercapnic with respiratory acidosis. Precise etiology is still unclear. Sputum culture yielded Klebsiella , gram-positive cocci in clusters. Patient is on empiric ceftriaxone. Will await cultures and make adjustments as needed 2. Hyper kalemia -corrected 3. Leukocytosis likely secondary to steroids. 4. chronic lymphedema. 5. Elevated troponin likely secondary to demand ischemia. Appreciate cardiology input 6. Chronic obstructive pulmonary disease continue bronchodilators and steroids 7. Morbid obesity 8. Alcohol dependence 9. Obstructive sleep apnea 10. Chronic DVT of axillary vein currently on Xarelto 11. Cellulitis of both lower extremity patient has completed his course of antibiotics.
[2018-06-22] MEDS: TRAZODONE HCL 50 MG TABLET NG SCH (21:04)
[2018-06-22] MEDS: MELATONIN 5 MG TABLET PO SCH (21:04)
[2018-06-22] MEDS: ATORVASTATIN CALCIUM 40 MG TABLET NG SCH (21:05)
[2018-06-22] MEDS: MONTELUKAST SODIUM 10 MG TABLET NG SCH (21:05)
--- NOTE | 2018-06-23 00:36 | PDOC PROGRESS REPORT ---
Subjective Progress Note for:: 06/22/18 Subjective:: Patient about the same and has made slow but gradual progress. There is no significant change in general condition. Patient is still intubated. Patient remains intubated, sedated, patient however looks comfortable and in acute distress. On day 1 post intubation, patient was noted to be transiently bradycardic felt to be related to vagal stimulation. No further bradycardia noted. Medications reviewed. Reason For Visit: LOWER EXTREMITIES CELLULITIS Physical Exam Vital Signs: Temp Pulse Resp BP Pulse Ox 97.8 F 55 L 18 133/86 H 94 06/22/18 23:39 06/22/18 20:25 06/22/18 22:00 06/22/18 21:57 06/22/18 22:00 Intake & Output 06/21/18 06/22/18 06/23/18 06:59 06:59 06:59 Intake Total 698 1797 1697 Output Total 3200 3210 1180 Balance -2502 -1413 517 Weight 129.8 kg 128.4 kg Exam: GENERAL: well-nourished and in no acute distress. Patient is intubated and sedated. Orientation cannot be checked HEAD: Atraumatic, normocephalic. EYES: Pupils equal round and reactive to light, extraocular movements could not be checked, sclera anicteric, conjunctiva are normal. ENT: TMs normal, nares patent, oropharynx clear without exudates. Moist mucous membranes. No oral ulcerations or bleeding gums noted NECK: supple without lymphadenopathy or JVD. Trachea is central. No cervical or axillary lymphadenopathy noted. Carotids are 2+ LUNGS: Breath sounds mostly clear to auscultation patient is noted to have bibasal crackles at the extreme bases CHEST: Palpation of the chest wall shows no significant chest wall tenderness or abnormalities. 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 ABDOMEN: Soft, no significant tenderness appreciated, normoactive bowel sounds. No guarding, no rebound. No rigidity noted . No masses appreciated. EXTREMITIES: Pedal pulses are 1-2+, no calf tenderness noted, 1+ pedal edema noted, patient noted to have lymphedema of the both feet bilaterally. No clubbing or cyanosis. NEUROLOGICAL: The patient cannot participate in the neurological exam but no facial asymmetry noted. Extremities slightly hypotonic PSYCH: This cannot be evaluated. Patient cannot participate. SKIN: No significant ecchymosis, rash, or signs of pruritus noted. MUSCULOSKELETAL EXAM: No significant joint swelling noted. Patient cannot participate in musculoskeletal exam Results Laboratory Results: 06/22/18 05:10 06/22/18 15:30 06/22/18 06/22/18 06/22/18 05:10 05:10 05:10 WBC 16.8 H RBC 3.66 L Hgb 10.7 L Hct 32.2 L MCV 88 MCH 29.2 MCHC 33.1 RDW 19.1 H Plt Count 245 Seg Neutrophils % 80.8 H Lymphocytes % 7.8 L Monocytes % 11.4 Eosinophils % 0.0 Basophils % 0.0 Absolute Neutrophils 13.5 H Absolute Lymphocytes 1.3 Absolute Monocytes 1.9 H Absolute Eosinophils 0.0 Absolute Basophils 0.0 Carbonic Acid 1.26 HCO3/H2CO3 Ratio 25:1 ABG pH 7.50 H ABG pCO2 42.0 ABG pO2 61.4 L ABG HCO3 32.2 H ABG O2 Saturation 93.4 L ABG Base Excess 8.2 FiO2 70% Sodium 143.8 Potassium 3.3 L Chloride 104 Carbon Dioxide 30 Anion Gap 10 BUN 12 Creatinine 0.82 Est GFR ( Amer) > 60 Est GFR (Non-Af Amer) > 60 Glucose 150 H Calcium 8.4 Phosphorus 3.2 Magnesium 2.0 Total Bilirubin 0.2 AST 20 ALT 22 Alkaline Phosphatase 60 Total Protein 6.7 Albumin 2.7 L 06/22/18 15:30 WBC RBC Hgb Hct MCV MCH MCHC RDW Plt Count Seg Neutrophils % Lymphocytes % Monocytes % Eosinophils % Basophils % Absolute Neutrophils Absolute Lymphocytes Absolute Monocytes Absolute Eosinophils Absolute Basophils Carbonic Acid HCO3/H2CO3 Ratio ABG pH ABG pCO2 ABG pO2 ABG HCO3 ABG O2 Saturation ABG Base Excess FiO2 Sodium Potassium 4.0 Chloride Carbon Dioxide Anion Gap BUN Creatinine Est GFR ( Amer) Est GFR (Non-Af Amer) Glucose Calcium Phosphorus Magnesium Total Bilirubin AST ALT Alkaline Phosphatase Total Protein Albumin 06/20/18 10:30 Tracheal Aspirate Sputum Culture - Final Klebsiella Oxytoca Staphylococcus Aureus Normal Kimberly Absent 06/20/18 06/20/18 06/20/18 05:45 05:45 05:45 Creatine Kinase 73 CK-MB (CK-2) 0.62 Troponin I 0.014 NT-Pro-B Natriuret Pep 64 06/20/18 06/20/18 06/20/18 10:30 10:30 10:30 Creatine Kinase 97 Cancelled CK-MB (CK-2) 1.25 Troponin I 0.154 NT-Pro-B Natriuret Pep 06/20/18 06/20/18 06/20/18 10:30 16:02 16:02 Creatine Kinase 78 CK-MB (CK-2) Cancelled 1.12 Troponin I Cancelled 0.132 NT-Pro-B Natriuret Pep 06/20/18 06/20/18 22:15 22:15 Creatine Kinase 63 CK-MB (CK-2) 1.00 Troponin I 0.101 NT-Pro-B Natriuret Pep EKG Comments: Shows sinus rhythm with intermittent mild sinus tachycardia Impressions: Guidance Fluoroscopy 06/11/18 00:00 IMPRESSION: SUCCESSFUL PLACEMENT OF A 5 FR DUAL LUMEN 13 9 CM PICC IN THE LEFT BASILIC VEIN. Interventional Vascular Procedure 06/11/18 00:00 IMPRESSION: SUCCESSFUL PLACEMENT OF A 5 FR DUAL LUMEN 13 9 CM PICC IN THE LEFT BASILIC VEIN. PICC Line Insertion 06/11/18 00:00 IMPRESSION: SUCCESSFUL PLACEMENT OF A 5 FR DUAL LUMEN 13 9 CM PICC IN THE LEFT BASILIC VEIN. Chest/Abdomen CTA 06/20/18 09:17 IMPRESSION: No CT angio evidence of acute pulmonary emboli. PICC line, endotracheal tube, nasogastric tube in good positioning. Bandlike airspace disease in the dependent portions of both lungs, likely atelectasis. Chest X-Ray 06/22/18 06:00 IMPRESSION: No significant change. Assessment & Plan - Diagnosis (1) Bradycardia Is this a current diagnosis for this admission?: Yes (2) Respiratory failure Qualifiers: Chronicity: acute on chronic Respiratory failure complication: hypoxia and hypercapnia Qualified Code(s): J96.21 - Acute and chronic respiratory failure with hypoxia; J96.22 - Acute and chronic respiratory failure with hypercapnia; J96.22 - Acute and chronic respiratory failure with hypercapnia; J96.22 - Acute and chronic respiratory failure with hypercapnia Is this a current diagnosis for this admission?: Yes (3) Bilateral lower leg cellulitis Is this a current diagnosis for this admission?: Yes (4) COPD (chronic obstructive pulmonary disease) Qualifiers: Chronic bronchitis type: unspecified Is this a current diagnosis for this admission?: Yes (5) Morbid obesity Is this a current diagnosis for this admission?: Yes (6) Obstructive sleep apnea Is this a current diagnosis for this admission?: Yes (7) RONIT (obstructive sleep apnea) Is this a current diagnosis for this admission?: Yes (8) CAD (coronary artery disease) Qualifiers: Coronary Disease-Associated Artery/Lesion type: [place] artery [place] vs. transplanted heart: [place] heart Associated angina: without angina Qualified Code(s): I25.10 - Atherosclerotic heart disease of [place] coronary artery without angina pectoris Is this a current diagnosis for this admission?: Yes - Notes Notes: Bradycardia: This has resolved. No further recurrences since day 1 of intubation. Acute on chronic respiratory failure: Patient still being artificially ventilated and oxygenated. Pulmonary following. Bilateral lower extremity cellulitis: Patient being managed by [employer]. COPD: This is probably a significant problem necessitating continued artificial ventilation and oxygenation. Morbid obesity: Currently stable. Patient will benefit from chronic weight loss. Obstructive sleep apnea: Currently intubated. Recommend CPAP/BiPAP therapy once extubated on a nightly basis. Coronary artery disease: Currently stable without any evidence of angina or angina equivalent symptoms. Patient has been stable for many days. Will sign off. Please reconsult if needed. - Time Time with patient: 15-25 minutes Medications reviewed and adjusted accordingly: Yes
[2018-06-23] MEDS: NORMAL SALINE 1000 ML 1,000 ML IV PRN ×2 (00:50→16:30)
[2018-06-23] MEDS: PROPOFOL 1,000 MG/100 ML INFUS..BTL IV PRN ×7 (00:50→19:25)
[2018-06-23] MEDS: IPRATROPIUM/ALBUTEROL 0.5-2.5 MG/3 ML AMPUL NEB SCH ×4 (02:30→20:45)
[2018-06-23] MEDS: METHYLPREDNISOLONE INJ 125 MG/2 ML SDV IV SCH ×3 (03:09→18:21)
[2018-06-23] MEDS: FLUTICASONE/SALMETEROL DISKUS 250-50 MCG/DOSE IH SCH ×2 (05:33→17:15)
[2018-06-23] MEDS: PREGABALIN 75 MG CAPSULE PO SCH ×3 (05:35→21:11)
[2018-06-23 06:00] LABS: ARTERIAL BLOOD BASE EXCESS 7.3 mmol/L; ARTERIAL BLOOD H2CO3 1.24 mmol/L (1.05-1.35); ARTERIAL BLOOD HCO3 31.2 mmol/L (20-26); ARTERIAL BLOOD O2 SATURATION 93.6 % (94-98); ARTERIAL BLOOD PCO2 41.3 mmHg (35-45); ARTERIAL BLOOD PO2 62.6 mmHg (80-100); ARTERIAL BLOOD TOTAL CO2 32.5 mmol/L (23-27)
[2018-06-23 06:01] LABS: ABSOLUTE LYMPHOCYTES (AUTO) 0.8 10^3/uL (0.5-4.7); ABSOLUTE MONOCYTES (AUTO) 0.8 10^3/uL (0.1-1.4); ABSOLUTE NEUT (AUTO) 11.8 10^3/uL (1.7-8.2); BASOPHILS % (AUTO) 0.1 % (0-2); HEMATOCRIT 34.4 % (37.9-51.0); HEMOGLOBIN 11.3 g/dL (13.5-17.0); LYMPHOCYTES % (AUTO) 6.2 % (13-45); MEAN CORPUSCULAR HEMOGLOBIN 29.1 pg (27.0-33.4); MEAN CORPUSCULAR HGB CONC 32.7 g/dL (32.0-36.0); MEAN CORPUSCULAR VOLUME 89 fl (80-97); MONOCYTES % (AUTO) 6.1 % (3-13); PLATELET COUNT 241 10^3/uL (150-450); RED BLOOD COUNT 3.87 10^6/uL (4.35-5.55); RED CELL DISTRIBUTION WIDTH 18.5 % (11.5-14.0); SEGMENTED NEUTROPHILS % (AUTO) 87.6 % (42-78); TOTAL CELLS COUNTED % (AUTO) 100 %; WHITE BLOOD COUNT 13.5 10^3/uL (4.0-10.5)
[2018-06-23 06:02] LABS: ARTERIAL BLOOD FIO2 70%
[2018-06-23 06:15] LABS: ALANINE AMINOTRANSFERASE 29 U/L (21-72); ALBUMIN 2.8 g/dL (3.5-5.0); ALKALINE PHOSPHATASE 58 U/L (38-126); ANION GAP 11 (5-19); ASPARTATE AMINO TRANSFERASE 19 U/L (17-59); BILIRUBIN,DIRECT 0.3 mg/dL (0.0-0.4); BILIRUBIN,TOTAL 0.4 mg/dL (0.2-1.3); BLOOD UREA NITROGEN 15 mg/dL (7-20); CALCIUM 8.3 mg/dL (8.4-10.2); CARBON DIOXIDE 25 mmol/L (22-30); CHLORIDE 108 mmol/L (98-107); GLUCOSE 157 mg/dL (75-110); PHOSPHORUS 2.7 mg/dL (2.5-4.5); POTASSIUM 3.7 mmol/L (3.6-5.0); SODIUM 143.5 mmol/L (137-145); TOTAL PROTEIN 6.8 g/dL (6.3-8.2)
[2018-06-23] MEDS: LACTOBACILLUS ACIDOPHILUS 250 MG TAB NG SCH (08:06)
[2018-06-23] MEDS: FUROSEMIDE 20 MG TABLET NG SCH (08:06)
[2018-06-23] MEDS: TOBRAMYCIN SULFATE NEB 40 MG/ML 30 ML NEB SCH ×2 (08:42→20:45)
--- NOTE | 2018-06-23 08:42 | RADIOLOGY REPORT (SQ) ---
EXAM DESCRIPTION: CHEST SINGLE VIEW COMPLETED DATE/TIME: 06/23/2018 6:47 am REASON FOR STUDY: resp failure COMPARISON: 06/22/2018 NUMBER OF VIEWS: One view. TECHNIQUE: Single frontal radiographic image of the chest acquired. LIMITATIONS: None. FINDINGS: LUNGS AND PLEURA: Small pleural effusions. Chronic interstitial changes. No pneumothorax . MEDIASTINUM AND HEART: Stable heart size and mediastinal structures. SUPPORT DEVICES: Appropriate location without change. BONY STRUCTURES: No acute findings. HARDWARE: None. OTHER: No other significant finding. IMPRESSION: Small pleural effusions. No pneumothorax. Reading location - IP/workstation name: [email or web address]
[2018-06-23] MEDS: ACETYLCYSTEINE 20% SOLN 800 MG/4 ML VIAL.NEB NEB SCH ×2 (08:43→20:46)
[2018-06-23] MEDS: MULTIVIT-STRESS FORMULA/ZINC TABLET NG SCH (09:40)
[2018-06-23] MEDS: CHOLECALCIFEROL (D3) 1,000 UNIT TABLET NG SCH (09:40)
[2018-06-23] MEDS: MULTIVITAMIN TABLET PO SCH (09:40)
[2018-06-23] MEDS: FOLIC ACID 1 MG TABLET NG SCH (09:40)
[2018-06-23] MEDS: RIVAROXABAN 10 MG TABLET NG SCH (09:40)
[2018-06-23] MEDS: LORATADINE 10 MG TABLET NG SCH (09:40)
[2018-06-23] MEDS: FAMOTIDINE INJ/PF 20 MG/2 ML SDV IV SCH ×2 (09:41→21:12)
[2018-06-23] MEDS: NORMAL SALINE 10 ML SDV (SCHEDULED) IV SCH ×2 (09:42→21:08)
[2018-06-23] MEDS: DOCUSATE SODIUM 100 MG CAPSULE PO SCH ×2 (09:42→17:15)
[2018-06-23] MEDS: FLUTICASONE NASAL SPRAY 50 MCG/SPRY 120 SPRAY/16 GM NASL SCH ×2 (09:42→21:08)
[2018-06-23] MEDS: LEVOFLOXACIN 750 MG/D5W RTU 750 MG/150 ML RTUPB IV SCH (09:42)
[2018-06-23] MEDS: CYANOCOBALAMIN (VITAMIN B-12) 1,000 MCG TABLET NG SCH (09:48)
--- NOTE | 2018-06-23 14:08 | PDOC PROGRESS REPORT ---
Subjective Progress Note for:: 06/21/18 Subjective:: Patient about the same and has made slow but gradual progress. There is no significant change in general condition. Patient is still intubated. Patient remains intubated, sedated, patient however looks comfortable and in acute distress. On day 1 post intubation, patient was noted to be transiently bradycardic felt to be related to vagal stimulation. No further bradycardia noted. No significant change in patient's condition Medications reviewed. Reason For Visit: LOWER EXTREMITIES CELLULITIS Physical Exam Vital Signs: Temp Pulse Resp BP Pulse Ox 97.5 F 81 20 111/66 92 06/21/18 22:00 06/21/18 20:12 06/21/18 22:00 06/21/18 21:56 06/21/18 22:00 Intake & Output 06/20/18 06/21/18 06/22/18 06:59 06:59 06:59 Intake Total 2165 698 770 Output Total 1050 3200 2750 Balance 5104 -3486 -6589 Weight 134 kg 129.8 kg Exam: GENERAL: well-nourished and in no acute distress. Patient is intubated and sedated. Orientation cannot be checked HEAD: Atraumatic, normocephalic. EYES: Pupils equal round and reactive to light, extraocular movements could not be checked, sclera anicteric, conjunctiva are normal. ENT: TMs normal, nares patent, oropharynx clear without exudates. Moist mucous membranes. No oral ulcerations or bleeding gums noted NECK: supple without lymphadenopathy or JVD. Trachea is central. No cervical or axillary lymphadenopathy noted. Carotids are 2+ LUNGS: Breath sounds mostly clear to auscultation patient is noted to have bibasal crackles at the extreme bases CHEST: Palpation of the chest wall shows no significant chest wall tenderness or abnormalities. 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 ABDOMEN: Soft, no significant tenderness appreciated, normoactive bowel sounds. No guarding, no rebound. No rigidity noted . No masses appreciated. EXTREMITIES: Pedal pulses are 1-2+, no calf tenderness noted, 1+ pedal edema noted, significant lymphedema noted especially involving both feet. No clubbing or cyanosis. Mild cellulitic changes are noted. NEUROLOGICAL: The patient cannot participate in the neurological exam but no facial asymmetry noted. Extremities slightly hypotonic PSYCH: This cannot be evaluated. Patient cannot participate. SKIN: No significant ecchymosis, rash, or signs of pruritus noted. MUSCULOSKELETAL EXAM: No significant joint swelling noted. Patient cannot participate in musculoskeletal exam Results Laboratory Results: 06/21/18 05:45 06/21/18 05:45 06/21/18 06/21/18 06/21/18 05:45 05:45 05:45 WBC 12.5 H RBC 3.97 L Hgb 11.8 L Hct 35.6 L MCV 90 MCH 29.8 MCHC 33.2 RDW 18.6 H Plt Count 271 Seg Neutrophils % 84.7 H Lymphocytes % 8.1 L Monocytes % 7.1 Eosinophils % 0.0 Basophils % 0.1 Absolute Neutrophils 10.6 H Absolute Lymphocytes 1.0 Absolute Monocytes 0.9 Absolute Eosinophils 0.0 Absolute Basophils 0.0 Carbonic Acid 1.30 HCO3/H2CO3 Ratio 25:1 ABG pH 7.50 H ABG pCO2 43.2 ABG pO2 149.9 H ABG HCO3 32.9 H ABG O2 Saturation 99.1 H ABG Base Excess 8.8 FiO2 85% Sodium 141.0 Potassium 4.0 D Chloride 100 Carbon Dioxide 33 H Anion Gap 8 BUN 11 Creatinine 0.83 Est GFR ( Amer) > 60 Est GFR (Non-Af Amer) > 60 Glucose 184 H Calcium 8.9 Phosphorus 3.5 Magnesium 2.0 Total Bilirubin 0.4 AST 32 ALT 29 Alkaline Phosphatase 81 Total Protein 7.4 Albumin 3.0 L 06/21/18 12:50 WBC RBC Hgb Hct MCV MCH MCHC RDW Plt Count Seg Neutrophils % Lymphocytes % Monocytes % Eosinophils % Basophils % Absolute Neutrophils Absolute Lymphocytes Absolute Monocytes Absolute Eosinophils Absolute Basophils Carbonic Acid 1.23 HCO3/H2CO3 Ratio 27:1 ABG pH 7.54 H ABG pCO2 40.8 ABG pO2 65.9 L ABG HCO3 33.9 H ABG O2 Saturation 95.0 ABG Base Excess 10.5 FiO2 45% Sodium Potassium Chloride Carbon Dioxide Anion Gap BUN Creatinine Est GFR ( Amer) Est GFR (Non-Af Amer) Glucose Calcium Phosphorus Magnesium Total Bilirubin AST ALT Alkaline Phosphatase Total Protein Albumin 06/20/18 06/20/18 06/20/18 05:45 05:45 05:45 Creatine Kinase 73 CK-MB (CK-2) 0.62 Troponin I 0.014 NT-Pro-B Natriuret Pep 64 06/20/18 06/20/18 06/20/18 10:30 10:30 10:30 Creatine Kinase 97 Cancelled CK-MB (CK-2) 1.25 Troponin I 0.154 NT-Pro-B Natriuret Pep 06/20/18 06/20/18 06/20/18 10:30 16:02 16:02 Creatine Kinase 78 CK-MB (CK-2) Cancelled 1.12 Troponin I Cancelled 0.132 NT-Pro-B Natriuret Pep 06/20/18 06/20/18 22:15 22:15 Creatine Kinase 63 CK-MB (CK-2) 1.00 Troponin I 0.101 NT-Pro-B Natriuret Pep EKG Comments: Shows sinus rhythm without any sustained bradycardia being noted. No other significant cardiac dysrhythmia noted. Impressions: Guidance Fluoroscopy 06/11/18 00:00 IMPRESSION: SUCCESSFUL PLACEMENT OF A 5 FR DUAL LUMEN 13 9 CM PICC IN THE LEFT BASILIC VEIN. Interventional Vascular Procedure 06/11/18 00:00 IMPRESSION: SUCCESSFUL PLACEMENT OF A 5 FR DUAL LUMEN 13 9 CM PICC IN THE LEFT BASILIC VEIN. PICC Line Insertion 06/11/18 00:00 IMPRESSION: SUCCESSFUL PLACEMENT OF A 5 FR DUAL LUMEN 13 9 CM PICC IN THE LEFT BASILIC VEIN. Chest/Abdomen CTA 06/20/18 09:17 IMPRESSION: No CT angio evidence of acute pulmonary emboli. PICC line, endotracheal tube, nasogastric tube in good positioning. Bandlike airspace disease in the dependent portions of both lungs, likely atelectasis. Chest X-Ray 06/21/18 06:00 IMPRESSION: No significant change. Assessment & Plan - Diagnosis (1) Bradycardia Is this a current diagnosis for this admission?: Yes (2) Respiratory failure Qualifiers: Chronicity: acute on chronic Respiratory failure complication: hypoxia and hypercapnia Qualified Code(s): J96.21 - Acute and chronic respiratory failure with hypoxia; J96.22 - Acute and chronic respiratory failure with hypercapnia; J96.22 - Acute and chronic respiratory failure with hypercapnia; J96.22 - Acute and chronic respiratory failure with hypercapnia Is this a current diagnosis for this admission?: Yes (3) COPD (chronic obstructive pulmonary disease) Qualifiers: Chronic bronchitis type: unspecified Is this a current diagnosis for this admission?: Yes (4) Cellulitis of both lower extremities Is this a current diagnosis for this admission?: Yes (5) Lymphedema Is this a current diagnosis for this admission?: Yes (6) Morbid obesity Is this a current diagnosis for this admission?: Yes (7) Obstructive sleep apnea Is this a current diagnosis for this admission?: Yes (8) CAD (coronary artery disease) Qualifiers: Coronary Disease-Associated Artery/Lesion type: [place] artery [place] vs. transplanted heart: [place] heart Associated angina: without angina Qualified Code(s): I25.10 - Atherosclerotic heart disease of [place] coronary artery without angina pectoris Is this a current diagnosis for this admission?: Yes - Notes Notes: Patient seems generally somewhat more alert but still intubated and sedated. Bradycardia possibly related to vagal stimulation. This is not uncommon in intubated patient, especially during early intubation. Started patient on scopolamine patch yesterday. If heart rate remained stable, may not renew. COPD: Continue therapy prescribed by the manager metal. Cellulitis both lower legs: Management being left to hospitalist. Continue antibiotic therapy as needed. CAD: Twelve-lead EKG is nonacute. Continue to follow EKGs. Lymphedema: Recommend chronic management. Morbid obesity: Currently stable patient will benefit from gradual weight loss. Sleep apnea syndrome: Patient currently intubated and being artificially ventilated. Once extubated would need CPAP/BiPAP therapy. Thread Marker following the patient. - Time Time with patient: 15-25 minutes - More than 50% of the time spent coordinating care, discussing management plans with involved caregivers. Management plans discussed with involved personnels. Medical decision making was of moderate to high complexity, patient's has multiple comorbidities. Medications reviewed and adjusted accordingly: Yes
--- NOTE | 2018-06-23 14:45 | PDOC PROGRESS REPORT ---
Subjective Progress Note for:: 06/23/18 Subjective:: . Patient went into acute respiratory failure. Etiology still unclear. Was found to be hypercapnic with a PCO2 of more than [address] of [address] scan reveals no evidence of acute pulmonary emboli. There is possible atelectasis otherwise nothing of significance. Patient does receive opioids chronically but this is not acute and he did receive some Narcan with no effects He remains intubated and sedated. He is also off Levophed CT reveals no evidence of pulmonary emboli. Patient was actually on Xarelto prior to this episode. Still unclear what the sentinel event is. Patient unable to tolerate weaning as he is on 60% FIO2 Reason For Visit: LOWER EXTREMITIES CELLULITIS Physical Exam Vital Signs: Temp Pulse Resp BP Pulse Ox 98.4 F 64 10 L 152/84 H 95 06/23/18 14:00 06/23/18 14:24 06/23/18 14:24 06/23/18 13:57 06/23/18 14:24 Intake & Output 06/22/18 06/23/18 06/24/18 06:59 06:59 06:59 Intake Total 1797 1970 193 Output Total 3210 1555 605 Balance -1413 415 -412 Weight 128.4 kg 131.7 kg General appearance: PRESENT: no acute distress, well-developed, well-nourished, other - intubated Head exam: PRESENT: atraumatic, normocephalic Eye exam: PRESENT: conjunctiva pink, PERRLA. ABSENT: scleral icterus Ear exam: PRESENT: normal external ear exam Neck exam: ABSENT: carotid bruit, JVD, lymphadenopathy, thyromegaly Respiratory exam: PRESENT: decreased breath sounds. ABSENT: rales, rhonchi, wheezes Cardiovascular exam: PRESENT: RRR, +S1, +S2. ABSENT: diastolic murmur, rubs, systolic murmur Pulses: PRESENT: normal dorsalis pedis pul Vascular exam: PRESENT: normal capillary refill GI/Abdominal exam: PRESENT: normal bowel sounds, soft. ABSENT: distended, guarding, mass, organolmegaly, rebound, tenderness Rectal exam: PRESENT: deferred Extremities exam: PRESENT: full ROM - chronic lymphedema, pedal edema, other. ABSENT: calf tenderness, clubbing Neurological exam: PRESENT: other - sedated. ABSENT: motor sensory deficit Psychiatric exam: PRESENT: other - unable to evaluate Skin exam: PRESENT: dry, intact, warm. ABSENT: cyanosis, rash Results Laboratory Results: 06/23/18 05:45 06/23/18 05:45 06/22/18 06/23/18 06/23/18 15:30 05:45 05:45 WBC 13.5 H RBC 3.87 L Hgb 11.3 L Hct 34.4 L MCV 89 MCH 29.1 MCHC 32.7 RDW 18.5 H Plt Count 241 Seg Neutrophils % 87.6 H Lymphocytes % 6.2 L Monocytes % 6.1 Eosinophils % 0.0 Basophils % 0.1 Absolute Neutrophils 11.8 H Absolute Lymphocytes 0.8 Absolute Monocytes 0.8 Absolute Eosinophils 0.0 Absolute Basophils 0.0 Carbonic Acid 1.24 HCO3/H2CO3 Ratio 25:1 ABG pH 7.50 H ABG pCO2 41.3 ABG pO2 62.6 L ABG HCO3 31.2 H ABG O2 Saturation 93.6 L ABG Base Excess 7.3 FiO2 70% Sodium Potassium 4.0 Chloride Carbon Dioxide Anion Gap BUN Creatinine Est GFR ( Amer) Est GFR (Non-Af Amer) Glucose Calcium Phosphorus Magnesium Total Bilirubin AST ALT Alkaline Phosphatase Total Protein Albumin 06/23/18 05:45 WBC RBC Hgb Hct MCV MCH MCHC RDW Plt Count Seg Neutrophils % Lymphocytes % Monocytes % Eosinophils % Basophils % Absolute Neutrophils Absolute Lymphocytes Absolute Monocytes Absolute Eosinophils Absolute Basophils Carbonic Acid HCO3/H2CO3 Ratio ABG pH ABG pCO2 ABG pO2 ABG HCO3 ABG O2 Saturation ABG Base Excess FiO2 Sodium 143.5 Potassium 3.7 Chloride 108 H Carbon Dioxide 25 Anion Gap 11 BUN 15 Creatinine 0.68 Est GFR ( Amer) > 60 Est GFR (Non-Af Amer) > 60 Glucose 157 H Calcium 8.3 L Phosphorus 2.7 Magnesium 2.1 Total Bilirubin 0.4 AST 19 ALT 29 Alkaline Phosphatase 58 Total Protein 6.8 Albumin 2.8 L 06/20/18 10:30 Tracheal Aspirate Gram Stain - Final 06/20/18 10:30 Tracheal Aspirate Sputum Culture - Final Klebsiella Oxytoca Staphylococcus Aureus Normal Kimberly Absent 06/20/18 06/20/18 06/20/18 05:45 05:45 05:45 Creatine Kinase 73 CK-MB (CK-2) 0.62 Troponin I 0.014 NT-Pro-B Natriuret Pep 64 06/20/18 06/20/18 06/20/18 10:30 10:30 10:30 Creatine Kinase 97 Cancelled CK-MB (CK-2) 1.25 Troponin I 0.154 NT-Pro-B Natriuret Pep 06/20/18 06/20/18 06/20/18 10:30 16:02 16:02 Creatine Kinase 78 CK-MB (CK-2) Cancelled 1.12 Troponin I Cancelled 0.132 NT-Pro-B Natriuret Pep 06/20/18 06/20/18 22:15 22:15 Creatine Kinase 63 CK-MB (CK-2) 1.00 Troponin I 0.101 NT-Pro-B Natriuret Pep Impressions: Guidance Fluoroscopy 06/11/18 00:00 IMPRESSION: SUCCESSFUL PLACEMENT OF A 5 FR DUAL LUMEN 13 9 CM PICC IN THE LEFT BASILIC VEIN. Interventional Vascular Procedure 06/11/18 00:00 IMPRESSION: SUCCESSFUL PLACEMENT OF A 5 FR DUAL LUMEN 13 9 CM PICC IN THE LEFT BASILIC VEIN. PICC Line Insertion 06/11/18 00:00 IMPRESSION: SUCCESSFUL PLACEMENT OF A 5 FR DUAL LUMEN 13 9 CM PICC IN THE LEFT BASILIC VEIN. Chest/Abdomen CTA 06/20/18 09:17 IMPRESSION: No CT angio evidence of acute pulmonary emboli. PICC line, endotracheal tube, nasogastric tube in good positioning. Bandlike airspace disease in the dependent portions of both lungs, likely atelectasis. Chest X-Ray 06/23/18 06:00 IMPRESSION: Small pleural effusions. No pneumothorax. Assessment & Plan - Time Time Spent with patient: 15-24 minutes Medications reviewed and adjusted accordingly: Yes Anticipated discharge: SNF - Inpatient Certification Based on my medical assessment, after consideration of the patient's comorbidities, presenting symptoms, or acuity I expect that the services needed warrant INPATIENT care.: Yes Medical Necessity: Other - mechanical intubation - Plan Summary Plan Summary: 1 acute respiratory failure, hypoxemic and hypercapnic with respiratory acidosis. Precise etiology is still unclear. Sputum culture yielded Klebsiella , MSSA. Patient is on ceftriaxone. 2. Hyper kalemia -corrected 3. Leukocytosis likely secondary to steroids. 4. chronic lymphedema. 5. Elevated troponin likely secondary to demand ischemia. Appreciate cardiology input 6. Chronic obstructive pulmonary disease continue bronchodilators and steroids 7. Morbid obesity 8. Alcohol dependence 9. Obstructive sleep apnea 10. Chronic DVT of axillary vein currently on Xarelto 11. Cellulitis of both lower extremity patient has completed his course of antibiotics.
[2018-06-23] MEDS: MIDAZOLAM 2 MG/2 ML INJ IV PRN (16:30)
[2018-06-23] MEDS: SCOPOLAMINE HYDROBROMIDE 1.5 MG PATCH.TD72 TD SCH (18:23)
[2018-06-23] MEDS: TRAZODONE HCL 50 MG TABLET NG SCH (21:08)
[2018-06-23] MEDS: MELATONIN 5 MG TABLET PO SCH (21:08)
[2018-06-23] MEDS: ATORVASTATIN CALCIUM 40 MG TABLET NG SCH (21:11)
[2018-06-23] MEDS: MONTELUKAST SODIUM 10 MG TABLET NG SCH (21:11)
[2018-06-24] MEDS: PROPOFOL 1,000 MG/100 ML INFUS..BTL IV PRN ×7 (00:03→21:50)
[2018-06-24] MEDS: IPRATROPIUM/ALBUTEROL 0.5-2.5 MG/3 ML AMPUL NEB SCH ×4 (01:35→20:36)
[2018-06-24] MEDS: METHYLPREDNISOLONE INJ 125 MG/2 ML SDV IV SCH ×3 (02:38→18:19)
[2018-06-24] MEDS: PREGABALIN 75 MG CAPSULE PO SCH ×3 (05:39→22:25)
[2018-06-24] MEDS: FLUTICASONE/SALMETEROL DISKUS 250-50 MCG/DOSE IH SCH ×2 (05:40→18:20)
[2018-06-24 06:30] LABS: ARTERIAL BLOOD BASE EXCESS 3.6 mmol/L; ARTERIAL BLOOD H2CO3 1.17 mmol/L (1.05-1.35); ARTERIAL BLOOD HCO3 27.5 mmol/L (20-26); ARTERIAL BLOOD O2 SATURATION 97.2 % (94-98); ARTERIAL BLOOD PCO2 38.8 mmHg (35-45); ARTERIAL BLOOD PH 7.47 (7.35-7.45); ARTERIAL BLOOD PO2 88.4 mmHg (80-100); ARTERIAL BLOOD TOTAL CO2 28.7 mmol/L (23-27)
[2018-06-24 06:31] LABS: ABSOLUTE LYMPHOCYTES (AUTO) 0.8 10^3/uL (0.5-4.7); ABSOLUTE MONOCYTES (AUTO) 0.6 10^3/uL (0.1-1.4); ABSOLUTE NEUT (AUTO) 9.2 10^3/uL (1.7-8.2); HEMATOCRIT 34.5 % (37.9-51.0); HEMOGLOBIN 11.6 g/dL (13.5-17.0); LYMPHOCYTES % (AUTO) 7.2 % (13-45); MEAN CORPUSCULAR HEMOGLOBIN 29.9 pg (27.0-33.4); MEAN CORPUSCULAR HGB CONC 33.5 g/dL (32.0-36.0); MEAN CORPUSCULAR VOLUME 89 fl (80-97); MONOCYTES % (AUTO) 5.7 % (3-13); PLATELET COUNT 249 10^3/uL (150-450); RED BLOOD COUNT 3.87 10^6/uL (4.35-5.55); RED CELL DISTRIBUTION WIDTH 18.5 % (11.5-14.0); TOTAL CELLS COUNTED % (AUTO) 100 %; WHITE BLOOD COUNT 10.5 10^3/uL (4.0-10.5)
[2018-06-24 06:42] LABS: ARTERIAL BLOOD FIO2 70%
[2018-06-24 06:58] LABS: SEGMENTED NEUTROPHILS % (AUTO) 87.1 % (42-78)
[2018-06-24 07:22] LABS: BLOOD UREA NITROGEN 20 mg/dL (7-20); CALCIUM 8.6 mg/dL (8.4-10.2); GLUCOSE 174 mg/dL (75-110)
[2018-06-24 07:23] LABS: ALANINE AMINOTRANSFERASE 21 U/L (21-72); ALKALINE PHOSPHATASE 55 U/L (38-126); ANION GAP 9 (5-19); ASPARTATE AMINO TRANSFERASE 18 U/L (17-59); BILIRUBIN,DIRECT 0.4 mg/dL (0.0-0.4); BILIRUBIN,TOTAL 0.4 mg/dL (0.2-1.3); CARBON DIOXIDE 25 mmol/L (22-30); CHLORIDE 108 mmol/L (98-107); SODIUM 142.2 mmol/L (137-145); TOTAL PROTEIN 7.1 g/dL (6.3-8.2)
[2018-06-24] MEDS: TOBRAMYCIN SULFATE NEB 40 MG/ML 30 ML NEB SCH ×2 (08:37→20:36)
[2018-06-24] MEDS: ACETYLCYSTEINE 20% SOLN 800 MG/4 ML VIAL.NEB NEB SCH ×2 (08:37→20:36)
--- NOTE | 2018-06-24 08:41 | RADIOLOGY REPORT (SQ) ---
EXAM DESCRIPTION: CHEST SINGLE VIEW COMPLETED DATE/TIME: 06/24/2018 7:27 am REASON FOR STUDY: pna/resp failure COMPARISON: 06/23/2018 NUMBER OF VIEWS: One view. TECHNIQUE: Single frontal radiographic image of the chest acquired. LIMITATIONS: None. FINDINGS: LUNGS AND PLEURA: COPD. Small pleural effusions. No pneumothorax. MEDIASTINUM AND HEART: Stable heart size and mediastinal structures. SUPPORT DEVICES: Appropriate location without change. BONY STRUCTURES: No acute findings. HARDWARE: None. OTHER: No other significant finding. IMPRESSION: Small pleural effusions. No pneumothorax. Reading location - IP/workstation name: [email or web address]
[2018-06-24] MEDS: LACTOBACILLUS ACIDOPHILUS 250 MG TAB NG SCH (08:52)
[2018-06-24] MEDS: NORMAL SALINE 1000 ML 1,000 ML IV PRN ×2 (08:53→17:31)
[2018-06-24] MEDS: FUROSEMIDE 20 MG TABLET NG SCH (08:53)
[2018-06-24] MEDS: LEVOFLOXACIN 750 MG/D5W RTU 750 MG/150 ML RTUPB IV SCH (09:34)
[2018-06-24] MEDS: FAMOTIDINE INJ/PF 20 MG/2 ML SDV IV SCH ×2 (09:34→22:25)
[2018-06-24] MEDS: CHOLECALCIFEROL (D3) 1,000 UNIT TABLET NG SCH (09:34)
[2018-06-24] MEDS: RIVAROXABAN 10 MG TABLET NG SCH (09:34)
[2018-06-24] MEDS: FOLIC ACID 1 MG TABLET NG SCH (09:34)
[2018-06-24] MEDS: MULTIVIT-STRESS FORMULA/ZINC TABLET NG SCH (09:35)
[2018-06-24] MEDS: MULTIVITAMIN TABLET PO SCH (09:35)
[2018-06-24] MEDS: DOCUSATE SODIUM 100 MG CAPSULE PO SCH ×2 (09:35→18:19)
[2018-06-24] MEDS: NORMAL SALINE 10 ML SDV (SCHEDULED) IV SCH ×2 (09:35→22:26)
[2018-06-24] MEDS: CYANOCOBALAMIN (VITAMIN B-12) 1,000 MCG TABLET NG SCH (09:35)
[2018-06-24] MEDS: LORATADINE 10 MG TABLET NG SCH (09:35)
[2018-06-24] MEDS: FLUTICASONE NASAL SPRAY 50 MCG/SPRY 120 SPRAY/16 GM NASL SCH ×2 (09:35→22:25)
--- NOTE | 2018-06-24 10:14 | PDOC PROGRESS REPORT ---
Subjective Progress Note for:: 06/24/18 Subjective:: . Patient went into acute respiratory failure. Etiology still unclear. Was found to be hypercapnic with a PCO2 of more than [address] of [address] scan reveals no evidence of acute pulmonary emboli. There is possible atelectasis otherwise nothing of significance. Patient does receive opioids chronically but this is not acute and he did receive some Narcan with no effects He remains intubated and sedated. He is also off Levophed CT reveals no evidence of pulmonary emboli. Patient was actually on Xarelto prior to this episode. Still unclear what the sentinel event is. Patient unable to tolerate weaning as he is on 60% FIO2 Reason For Visit: LOWER EXTREMITIES CELLULITIS Physical Exam Vital Signs: Temp Pulse Resp BP Pulse Ox 97.9 F 62 15 123/66 97 06/24/18 10:00 06/24/18 08:00 06/24/18 10:00 06/24/18 09:10 06/24/18 10:00 Intake & Output 06/23/18 06/24/18 06/25/18 06:59 06:59 06:59 Intake Total 2970 1718 65 Output Total 1555 2255 125 Balance 1415 -537 -60 Weight 131.7 kg 131.4 kg General appearance: PRESENT: no acute distress, other - intubated Head exam: PRESENT: atraumatic Neck exam: ABSENT: carotid bruit, JVD, lymphadenopathy, thyromegaly Respiratory exam: PRESENT: decreased breath sounds, unlabored. ABSENT: rhonchi , tachypnea Cardiovascular exam: PRESENT: RRR. ABSENT: diastolic murmur, rubs, systolic murmur GI/Abdominal exam: PRESENT: normal bowel sounds, soft. ABSENT: distended, guarding, mass, organolmegaly, rebound, tenderness Extremities exam: PRESENT: other - bilateral lymphedema Neurological exam: PRESENT: other - sedated Results Laboratory Results: 06/24/18 05:35 06/24/18 05:35 06/24/18 06/24/18 06/24/18 05:35 05:35 05:35 WBC 10.5 RBC 3.87 L Hgb 11.6 L Hct 34.5 L MCV 89 MCH 29.9 MCHC 33.5 RDW 18.5 H Plt Count 249 Seg Neutrophils % 87.1 H Lymphocytes % 7.2 L Monocytes % 5.7 Eosinophils % 0.0 Basophils % 0.0 Absolute Neutrophils 9.2 H Absolute Lymphocytes 0.8 Absolute Monocytes 0.6 Absolute Eosinophils 0.0 Absolute Basophils 0.0 Carbonic Acid 1.17 HCO3/H2CO3 Ratio 23:1 ABG pH 7.47 H ABG pCO2 38.8 ABG pO2 88.4 ABG HCO3 27.5 H ABG O2 Saturation 97.2 ABG Base Excess 3.6 FiO2 70% Sodium 142.2 Potassium 4.0 Chloride 108 H Carbon Dioxide 25 Anion Gap 9 BUN 20 Creatinine 0.64 Est GFR ( Amer) > 60 Est GFR (Non-Af Amer) > 60 Glucose 174 H Calcium 8.6 Magnesium 2.2 Total Bilirubin 0.4 AST 18 ALT 21 Alkaline Phosphatase 55 Total Protein 7.1 Albumin 3.0 L 06/20/18 10:30 Tracheal Aspirate Gram Stain - Final 06/20/18 10:30 Tracheal Aspirate Sputum Culture - Final Klebsiella Oxytoca Staphylococcus Aureus Normal Kimberly Absent 06/20/18 06/20/18 06/20/18 05:45 05:45 05:45 Creatine Kinase 73 CK-MB (CK-2) 0.62 Troponin I 0.014 NT-Pro-B Natriuret Pep 64 06/20/18 06/20/18 06/20/18 10:30 10:30 10:30 Creatine Kinase 97 Cancelled CK-MB (CK-2) 1.25 Troponin I 0.154 NT-Pro-B Natriuret Pep 06/20/18 06/20/18 06/20/18 10:30 16:02 16:02 Creatine Kinase 78 CK-MB (CK-2) Cancelled 1.12 Troponin I Cancelled 0.132 NT-Pro-B Natriuret Pep 06/20/18 06/20/18 22:15 22:15 Creatine Kinase 63 CK-MB (CK-2) 1.00 Troponin I 0.101 NT-Pro-B Natriuret Pep Impressions: Guidance Fluoroscopy 06/11/18 00:00 IMPRESSION: SUCCESSFUL PLACEMENT OF A 5 FR DUAL LUMEN 13 9 CM PICC IN THE LEFT BASILIC VEIN. Interventional Vascular Procedure 06/11/18 00:00 IMPRESSION: SUCCESSFUL PLACEMENT OF A 5 FR DUAL LUMEN 13 9 CM PICC IN THE LEFT BASILIC VEIN. PICC Line Insertion 06/11/18 00:00 IMPRESSION: SUCCESSFUL PLACEMENT OF A 5 FR DUAL LUMEN 13 9 CM PICC IN THE LEFT BASILIC VEIN. Chest/Abdomen CTA 06/20/18 09:17 IMPRESSION: No CT angio evidence of acute pulmonary emboli. PICC line, endotracheal tube, nasogastric tube in good positioning. Bandlike airspace disease in the dependent portions of both lungs, likely atelectasis. Chest X-Ray 06/24/18 06:00 IMPRESSION: Small pleural effusions. No pneumothorax. Assessment & Plan - Time Time Spent with patient: 15-24 minutes Medications reviewed and adjusted accordingly: Yes Anticipated discharge: SNF - Inpatient Certification Based on my medical assessment, after consideration of the patient's comorbidities, presenting symptoms, or acuity I expect that the services needed warrant INPATIENT care.: Yes Medical Necessity: Need For IV Fluids, Need for IV Antibiotics, Other - Mechanical Ventilation - Plan Summary Plan Summary: 1 acute respiratory failure, hypoxemic and hypercapnic with respiratory acidosis. Precise etiology is still unclear. Sputum culture yielded Klebsiella , MSSA. Patient is on Levaquin. Please note sensitivities, MSSA resistant to Levaquin 2. Hyper kalemia -corrected 3. Leukocytosis - Resolved 4. chronic lymphedema. 5. Elevated troponin likely secondary to demand ischemia. Appreciate cardiology input 6. Chronic obstructive pulmonary disease continue bronchodilators and steroids 7. Morbid obesity 8. Alcohol dependence 9. Obstructive sleep apnea 10. Chronic DVT of axillary vein currently on Xarelto 11. Cellulitis of both lower extremity patient -treated
--- NOTE | 2018-06-24 17:04 | PDOC PROGRESS REPORT ---
Subjective Progress Note for:: 06/22/18 Subjective:: intubated sedated Reason For Visit: LOWER EXTREMITIES CELLULITIS Physical Exam Vital Signs: Temp Pulse Resp BP Pulse Ox 99.0 F 72 20 119/69 93 06/22/18 08:00 06/22/18 08:00 06/22/18 08:00 06/22/18 07:56 06/22/18 08:00 Intake & Output 06/21/18 06/22/18 06/23/18 06:59 06:59 06:59 Intake Total 698 1797 Output Total 3200 3210 75 Balance -2502 -1413 -75 Weight 129.8 kg 128.4 kg General appearance: PRESENT: no acute distress, disheveled, morbidly obese Head exam: PRESENT: atraumatic, normocephalic Eye exam: PRESENT: conjunctiva pale. ABSENT: nystagmus, periorbital swelling, scleral icterus Mouth exam: PRESENT: dry mucosa, neck supple, tongue midline, other - ET tube in place Neck exam: ABSENT: carotid bruit, JVD, lymphadenopathy, thyromegaly, tracheal deviation, tracheostomy Respiratory exam: PRESENT: decreased breath sounds, prolonged expiratory phas, rales, rhonchi, unlabored. ABSENT: retraction, stridor Cardiovascular exam: PRESENT: RRR, +S1, +S2 Pulses: PRESENT: normal radial pulses GI/Abdominal exam: PRESENT: normal bowel sounds, soft. ABSENT: tenderness Gentrourinary exam: PRESENT: indwelling catheter Extremities exam: ABSENT: calf tenderness, clubbing, full ROM, joint swelling, pedal edema Musculoskeletal exam: ABSENT: ambulatory, deformity, dislocation Neurological exam: ABSENT: awake Skin exam: PRESENT: dry, warm Results Laboratory Results: 06/22/18 05:10 06/22/18 05:10 06/21/18 06/22/18 06/22/18 12:50 05:10 05:10 WBC 16.8 H RBC 3.66 L Hgb 10.7 L Hct 32.2 L MCV 88 MCH 29.2 MCHC 33.1 RDW 19.1 H Plt Count 245 Seg Neutrophils % 80.8 H Lymphocytes % 7.8 L Monocytes % 11.4 Eosinophils % 0.0 Basophils % 0.0 Absolute Neutrophils 13.5 H Absolute Lymphocytes 1.3 Absolute Monocytes 1.9 H Absolute Eosinophils 0.0 Absolute Basophils 0.0 Carbonic Acid 1.23 1.26 HCO3/H2CO3 Ratio 27:1 25:1 ABG pH 7.54 H 7.50 H ABG pCO2 40.8 42.0 ABG pO2 65.9 L 61.4 L ABG HCO3 33.9 H 32.2 H ABG O2 Saturation 95.0 93.4 L ABG Base Excess 10.5 8.2 FiO2 45% 70% Sodium Potassium Chloride Carbon Dioxide Anion Gap BUN Creatinine Est GFR ( Amer) Est GFR (Non-Af Amer) Glucose Calcium Phosphorus Magnesium Total Bilirubin AST ALT Alkaline Phosphatase Total Protein Albumin 06/22/18 05:10 WBC RBC Hgb Hct MCV MCH MCHC RDW Plt Count Seg Neutrophils % Lymphocytes % Monocytes % Eosinophils % Basophils % Absolute Neutrophils Absolute Lymphocytes Absolute Monocytes Absolute Eosinophils Absolute Basophils Carbonic Acid HCO3/H2CO3 Ratio ABG pH ABG pCO2 ABG pO2 ABG HCO3 ABG O2 Saturation ABG Base Excess FiO2 Sodium 143.8 Potassium 3.3 L Chloride 104 Carbon Dioxide 30 Anion Gap 10 BUN 12 Creatinine 0.82 Est GFR ( Amer) > 60 Est GFR (Non-Af Amer) > 60 Glucose 150 H Calcium 8.4 Phosphorus 3.2 Magnesium 2.0 Total Bilirubin 0.2 AST 20 ALT 22 Alkaline Phosphatase 60 Total Protein 6.7 Albumin 2.7 L 06/20/18 06/20/18 06/20/18 05:45 05:45 05:45 Creatine Kinase 73 CK-MB (CK-2) 0.62 Troponin I 0.014 NT-Pro-B Natriuret Pep 64 06/20/18 06/20/18 06/20/18 10:30 10:30 10:30 Creatine Kinase 97 Cancelled CK-MB (CK-2) 1.25 Troponin I 0.154 NT-Pro-B Natriuret Pep 06/20/18 06/20/18 06/20/18 10:30 16:02 16:02 Creatine Kinase 78 CK-MB (CK-2) Cancelled 1.12 Troponin I Cancelled 0.132 NT-Pro-B Natriuret Pep 06/20/18 06/20/18 22:15 22:15 Creatine Kinase 63 CK-MB (CK-2) 1.00 Troponin I 0.101 NT-Pro-B Natriuret Pep Impressions: Guidance Fluoroscopy 06/11/18 00:00 IMPRESSION: SUCCESSFUL PLACEMENT OF A 5 FR DUAL LUMEN 13 9 CM PICC IN THE LEFT BASILIC VEIN. Interventional Vascular Procedure 06/11/18 00:00 IMPRESSION: SUCCESSFUL PLACEMENT OF A 5 FR DUAL LUMEN 13 9 CM PICC IN THE LEFT BASILIC VEIN. PICC Line Insertion 06/11/18 00:00 IMPRESSION: SUCCESSFUL PLACEMENT OF A 5 FR DUAL LUMEN 13 9 CM PICC IN THE LEFT BASILIC VEIN. Chest/Abdomen CTA 06/20/18 09:17 IMPRESSION: No CT angio evidence of acute pulmonary emboli. PICC line, endotracheal tube, nasogastric tube in good positioning. Bandlike airspace disease in the dependent portions of both lungs, likely atelectasis. Chest X-Ray 06/22/18 06:00 IMPRESSION: No significant change. Assessment & Plan - Diagnosis (1) Morbid obesity Is this a current diagnosis for this admission?: Yes (2) Obstructive sleep apnea Is this a current diagnosis for this admission?: Yes Plan: nocturnal polysomnogram at discharge (3) COPD (chronic obstructive pulmonary disease) Qualifiers: COPD type: unspecified COPD Qualified Code(s): J44.9 - Chronic obstructive pulmonary disease, unspecified Is this a current diagnosis for this admission?: Yes Plan: Stable at this time (4) Acute and chronic respiratory failure with hypoxia Is this a current diagnosis for this admission?: Yes Plan: Still requiring elevated FiO2 and PEEP (5) Peripheral vascular disease Is this a current diagnosis for this admission?: Yes (6) GERD (gastroesophageal reflux disease) Qualifiers: Esophagitis presence: esophagitis presence not specified Qualified Code(s) : K21.9 - Gastro-esophageal reflux disease without esophagitis Is this a current diagnosis for this admission?: Yes Plan: Pepcid - Time Total Critical Time (Minutes): 45
--- NOTE | 2018-06-24 17:07 | PDOC PROGRESS REPORT ---
Subjective Progress Note for:: 06/23/18 Subjective:: intubated sedated Reason For Visit: LOWER EXTREMITIES CELLULITIS Physical Exam Vital Signs: Temp Pulse Resp BP Pulse Ox 98.8 F 66 20 140/74 H 95 06/23/18 08:00 06/23/18 02:30 06/23/18 08:00 06/23/18 07:57 06/23/18 08:00 Intake & Output 06/22/18 06/23/18 06/24/18 06:59 06:59 06:59 Intake Total 1797 1970 Output Total 3210 1555 50 Balance -1413 415 -50 Weight 128.4 kg 131.7 kg General appearance: PRESENT: no acute distress, disheveled, morbidly obese. ABSENT: cooperative Head exam: PRESENT: atraumatic, normocephalic Eye exam: PRESENT: conjunctiva pale. ABSENT: EOMI, nystagmus, periorbital swelling, scleral icterus Mouth exam: PRESENT: dry mucosa, neck supple, tongue midline, other - ET tube in place Neck exam: ABSENT: carotid bruit, JVD, lymphadenopathy, thyromegaly, tracheal deviation, tracheostomy Respiratory exam: PRESENT: decreased breath sounds, prolonged expiratory phas, rales, rhonchi, unlabored. ABSENT: retraction, stridor Cardiovascular exam: PRESENT: RRR, +S1, +S2 Pulses: PRESENT: normal radial pulses GI/Abdominal exam: PRESENT: hypoactive bowel sounds, soft. ABSENT: tenderness Gentrourinary exam: PRESENT: indwelling catheter Extremities exam: ABSENT: clubbing, joint swelling Musculoskeletal exam: ABSENT: deformity, dislocation Neurological exam: ABSENT: awake Skin exam: PRESENT: dry, warm Results Laboratory Results: 06/23/18 05:45 06/23/18 05:45 06/22/18 06/23/18 06/23/18 15:30 05:45 05:45 WBC 13.5 H RBC 3.87 L Hgb 11.3 L Hct 34.4 L MCV 89 MCH 29.1 MCHC 32.7 RDW 18.5 H Plt Count 241 Seg Neutrophils % 87.6 H Lymphocytes % 6.2 L Monocytes % 6.1 Eosinophils % 0.0 Basophils % 0.1 Absolute Neutrophils 11.8 H Absolute Lymphocytes 0.8 Absolute Monocytes 0.8 Absolute Eosinophils 0.0 Absolute Basophils 0.0 Carbonic Acid 1.24 HCO3/H2CO3 Ratio 25:1 ABG pH 7.50 H ABG pCO2 41.3 ABG pO2 62.6 L ABG HCO3 31.2 H ABG O2 Saturation 93.6 L ABG Base Excess 7.3 FiO2 70% Sodium Potassium 4.0 Chloride Carbon Dioxide Anion Gap BUN Creatinine Est GFR ( Amer) Est GFR (Non-Af Amer) Glucose Calcium Phosphorus Magnesium Total Bilirubin AST ALT Alkaline Phosphatase Total Protein Albumin 06/23/18 05:45 WBC RBC Hgb Hct MCV MCH MCHC RDW Plt Count Seg Neutrophils % Lymphocytes % Monocytes % Eosinophils % Basophils % Absolute Neutrophils Absolute Lymphocytes Absolute Monocytes Absolute Eosinophils Absolute Basophils Carbonic Acid HCO3/H2CO3 Ratio ABG pH ABG pCO2 ABG pO2 ABG HCO3 ABG O2 Saturation ABG Base Excess FiO2 Sodium 143.5 Potassium 3.7 Chloride 108 H Carbon Dioxide 25 Anion Gap 11 BUN 15 Creatinine 0.68 Est GFR ( Amer) > 60 Est GFR (Non-Af Amer) > 60 Glucose 157 H Calcium 8.3 L Phosphorus 2.7 Magnesium 2.1 Total Bilirubin 0.4 AST 19 ALT 29 Alkaline Phosphatase 58 Total Protein 6.8 Albumin 2.8 L 06/20/18 10:30 Tracheal Aspirate Sputum Culture - Final Klebsiella Oxytoca Staphylococcus Aureus Normal Kimberly Absent 06/20/18 06/20/18 06/20/18 05:45 05:45 05:45 Creatine Kinase 73 CK-MB (CK-2) 0.62 Troponin I 0.014 NT-Pro-B Natriuret Pep 64 06/20/18 06/20/18 06/20/18 10:30 10:30 10:30 Creatine Kinase 97 Cancelled CK-MB (CK-2) 1.25 Troponin I 0.154 NT-Pro-B Natriuret Pep 06/20/18 06/20/18 06/20/18 10:30 16:02 16:02 Creatine Kinase 78 CK-MB (CK-2) Cancelled 1.12 Troponin I Cancelled 0.132 NT-Pro-B Natriuret Pep 06/20/18 06/20/18 22:15 22:15 Creatine Kinase 63 CK-MB (CK-2) 1.00 Troponin I 0.101 NT-Pro-B Natriuret Pep Impressions: Guidance Fluoroscopy 06/11/18 00:00 IMPRESSION: SUCCESSFUL PLACEMENT OF A 5 FR DUAL LUMEN 13 9 CM PICC IN THE LEFT BASILIC VEIN. Interventional Vascular Procedure 06/11/18 00:00 IMPRESSION: SUCCESSFUL PLACEMENT OF A 5 FR DUAL LUMEN 13 9 CM PICC IN THE LEFT BASILIC VEIN. PICC Line Insertion 06/11/18 00:00 IMPRESSION: SUCCESSFUL PLACEMENT OF A 5 FR DUAL LUMEN 13 9 CM PICC IN THE LEFT BASILIC VEIN. Chest/Abdomen CTA 06/20/18 09:17 IMPRESSION: No CT angio evidence of acute pulmonary emboli. PICC line, endotracheal tube, nasogastric tube in good positioning. Bandlike airspace disease in the dependent portions of both lungs, likely atelectasis. Chest X-Ray 06/23/18 06:00 IMPRESSION: Small pleural effusions. No pneumothorax. Assessment & Plan - Diagnosis (1) Morbid obesity Is this a current diagnosis for this admission?: Yes Plan: Unchanged (2) Obstructive sleep apnea Is this a current diagnosis for this admission?: Yes Plan: nocturnal polysomnogram at discharge (3) COPD (chronic obstructive pulmonary disease) Qualifiers: COPD type: unspecified COPD Qualified Code(s): J44.9 - Chronic obstructive pulmonary disease, unspecified Is this a current diagnosis for this admission?: Yes Plan: 06/20/18 10:30 Gram Stain - Final Tracheal Aspirate Sputum Culture - Final Klebsiella Oxytoca Staphylococcus Aureus Normal Kimberly Absent (4) Acute and chronic respiratory failure with hypoxia Is this a current diagnosis for this admission?: Yes Plan: Still requiring elevated FiO2 and PEEP (5) Peripheral vascular disease Is this a current diagnosis for this admission?: Yes (6) GERD (gastroesophageal reflux disease) Qualifiers: Esophagitis presence: esophagitis presence not specified Qualified Code(s) : K21.9 - Gastro-esophageal reflux disease without esophagitis Is this a current diagnosis for this admission?: Yes - Time Total Critical Time (Minutes): 45
--- NOTE | 2018-06-24 17:09 | PDOC PROGRESS REPORT ---
Subjective Progress Note for:: 06/24/18 Subjective:: intubated sedated Reason For Visit: LOWER EXTREMITIES CELLULITIS Physical Exam Vital Signs: Temp Pulse Resp BP Pulse Ox 97.9 F 63 15 123/66 95 06/24/18 10:00 06/24/18 08:38 06/24/18 10:00 06/24/18 09:10 06/24/18 12:00 Intake & Output 06/23/18 06/24/18 06/25/18 06:59 06:59 06:59 Intake Total 2970 1718 299 Output Total 1556 2255 375 Balance 1415 -537 -76 Weight 131.7 kg 131.4 kg General appearance: PRESENT: no acute distress, disheveled, morbidly obese Head exam: PRESENT: atraumatic, normocephalic Eye exam: PRESENT: conjunctiva pale. ABSENT: EOMI, nystagmus, periorbital swelling, scleral icterus Mouth exam: PRESENT: dry mucosa, neck supple, tongue midline, other - ET tube in place Neck exam: ABSENT: carotid bruit, JVD, lymphadenopathy, thyromegaly, tracheal deviation, tracheostomy Respiratory exam: PRESENT: decreased breath sounds, prolonged expiratory phas, rales, rhonchi, unlabored. ABSENT: retraction, stridor Cardiovascular exam: PRESENT: RRR, +S1, +S2 Pulses: PRESENT: normal radial pulses GI/Abdominal exam: PRESENT: hypoactive bowel sounds, soft. ABSENT: tenderness Gentrourinary exam: PRESENT: indwelling catheter Extremities exam: PRESENT: pedal edema. ABSENT: clubbing, joint swelling Musculoskeletal exam: ABSENT: ambulatory, deformity, dislocation Neurological exam: ABSENT: awake Skin exam: PRESENT: dry, warm Results Laboratory Results: 06/24/18 05:35 06/24/18 05:35 06/24/18 06/24/18 06/24/18 05:35 05:35 05:35 WBC 10.5 RBC 3.87 L Hgb 11.6 L Hct 34.5 L MCV 89 MCH 29.9 MCHC 33.5 RDW 18.5 H Plt Count 249 Seg Neutrophils % 87.1 H Lymphocytes % 7.2 L Monocytes % 5.7 Eosinophils % 0.0 Basophils % 0.0 Absolute Neutrophils 9.2 H Absolute Lymphocytes 0.8 Absolute Monocytes 0.6 Absolute Eosinophils 0.0 Absolute Basophils 0.0 Carbonic Acid 1.17 HCO3/H2CO3 Ratio 23:1 ABG pH 7.47 H ABG pCO2 38.8 ABG pO2 88.4 ABG HCO3 27.5 H ABG O2 Saturation 97.2 ABG Base Excess 3.6 FiO2 70% Sodium 142.2 Potassium 4.0 Chloride 108 H Carbon Dioxide 25 Anion Gap 9 BUN 20 Creatinine 0.64 Est GFR ( Amer) > 60 Est GFR (Non-Af Amer) > 60 Glucose 174 H Calcium 8.6 Magnesium 2.2 Total Bilirubin 0.4 AST 18 ALT 21 Alkaline Phosphatase 55 Total Protein 7.1 Albumin 3.0 L 06/20/18 10:30 Tracheal Aspirate Gram Stain - Final 06/20/18 10:30 Tracheal Aspirate Sputum Culture - Final Klebsiella Oxytoca Staphylococcus Aureus Normal Kimberly Absent 06/20/18 06/20/18 06/20/18 05:45 05:45 05:45 Creatine Kinase 73 CK-MB (CK-2) 0.62 Troponin I 0.014 NT-Pro-B Natriuret Pep 64 06/20/18 06/20/18 06/20/18 10:30 10:30 10:30 Creatine Kinase 97 Cancelled CK-MB (CK-2) 1.25 Troponin I 0.154 NT-Pro-B Natriuret Pep 06/20/18 06/20/18 06/20/18 10:30 16:02 16:02 Creatine Kinase 78 CK-MB (CK-2) Cancelled 1.12 Troponin I Cancelled 0.132 NT-Pro-B Natriuret Pep 06/20/18 06/20/18 22:15 22:15 Creatine Kinase 63 CK-MB (CK-2) 1.00 Troponin I 0.101 NT-Pro-B Natriuret Pep Impressions: Guidance Fluoroscopy 06/11/18 00:00 IMPRESSION: SUCCESSFUL PLACEMENT OF A 5 FR DUAL LUMEN 13 9 CM PICC IN THE LEFT BASILIC VEIN. Interventional Vascular Procedure 06/11/18 00:00 IMPRESSION: SUCCESSFUL PLACEMENT OF A 5 FR DUAL LUMEN 13 9 CM PICC IN THE LEFT BASILIC VEIN. PICC Line Insertion 06/11/18 00:00 IMPRESSION: SUCCESSFUL PLACEMENT OF A 5 FR DUAL LUMEN 13 9 CM PICC IN THE LEFT BASILIC VEIN. Chest/Abdomen CTA 06/20/18 09:17 IMPRESSION: No CT angio evidence of acute pulmonary emboli. PICC line, endotracheal tube, nasogastric tube in good positioning. Bandlike airspace disease in the dependent portions of both lungs, likely atelectasis. Chest X-Ray 06/24/18 06:00 IMPRESSION: Small pleural effusions. No pneumothorax. Assessment & Plan - Diagnosis (1) Morbid obesity Is this a current diagnosis for this admission?: Yes (2) Obstructive sleep apnea Is this a current diagnosis for this admission?: Yes Plan: nocturnal polysomnogram at discharge (3) COPD (chronic obstructive pulmonary disease) Qualifiers: COPD type: unspecified COPD Qualified Code(s): J44.9 - Chronic obstructive pulmonary disease, unspecified Is this a current diagnosis for this admission?: Yes Plan: 06/20/18 10:30 Gram Stain - Final Tracheal Aspirate Sputum Culture - Final Klebsiella Oxytoca Staphylococcus Aureus Normal Kimberly Absent (4) Acute and chronic respiratory failure with hypoxia Is this a current diagnosis for this admission?: Yes Plan: Still requiring elevated FiO2 and PEEP (5) Peripheral vascular disease Is this a current diagnosis for this admission?: Yes (6) GERD (gastroesophageal reflux disease) Qualifiers: Esophagitis presence: esophagitis presence not specified Qualified Code(s) : K21.9 - Gastro-esophageal reflux disease without esophagitis Is this a current diagnosis for this admission?: Yes - Time Total Critical Time (Minutes): 40
[2018-06-24] MEDS: MONTELUKAST SODIUM 10 MG TABLET NG SCH (22:25)
[2018-06-24] MEDS: ATORVASTATIN CALCIUM 40 MG TABLET NG SCH (22:25)
[2018-06-24] MEDS: TRAZODONE HCL 50 MG TABLET NG SCH (22:25)
[2018-06-24] MEDS: MELATONIN 5 MG TABLET PO SCH (22:26)
[2018-06-25] MEDS: PROPOFOL 1,000 MG/100 ML INFUS..BTL IV PRN ×7 (00:12→22:22)
[2018-06-25] MEDS: IPRATROPIUM/ALBUTEROL 0.5-2.5 MG/3 ML AMPUL NEB SCH ×4 (01:07→21:40)
[2018-06-25] MEDS: NORMAL SALINE 1000 ML 1,000 ML IV PRN ×3 (01:40→18:39)
[2018-06-25] MEDS: METHYLPREDNISOLONE INJ 125 MG/2 ML SDV IV SCH ×3 (02:55→20:12)
[2018-06-25] MEDS: PREGABALIN 75 MG CAPSULE PO SCH ×2 (05:13→14:43)
[2018-06-25] MEDS: FLUTICASONE/SALMETEROL DISKUS 250-50 MCG/DOSE IH SCH ×2 (05:14→17:11)
[2018-06-25 06:18] LABS: ARTERIAL BLOOD BASE EXCESS 2.7 mmol/L; ARTERIAL BLOOD H2CO3 1.17 mmol/L (1.05-1.35); ARTERIAL BLOOD HCO3 26.7 mmol/L (20-26); ARTERIAL BLOOD O2 SATURATION 97.9 % (94-98); ARTERIAL BLOOD PH 7.45 (7.35-7.45); ARTERIAL BLOOD PO2 102.7 mmHg (80-100); ARTERIAL BLOOD TOTAL CO2 27.9 mmol/L (23-27)
[2018-06-25 06:20] LABS: ABSOLUTE MONOCYTES (AUTO) 0.8 10^3/uL (0.1-1.4); BASOPHILS % (AUTO) 0.3 % (0-2); HEMATOCRIT 36.5 % (37.9-51.0); HEMOGLOBIN 11.8 g/dL (13.5-17.0); LYMPHOCYTES % (AUTO) 8.2 % (13-45); MEAN CORPUSCULAR HEMOGLOBIN 28.9 pg (27.0-33.4); MEAN CORPUSCULAR HGB CONC 32.3 g/dL (32.0-36.0); MEAN CORPUSCULAR VOLUME 90 fl (80-97); MONOCYTES % (AUTO) 7.1 % (3-13); PLATELET COUNT 271 10^3/uL (150-450); RED BLOOD COUNT 4.09 10^6/uL (4.35-5.55); RED CELL DISTRIBUTION WIDTH 18.9 % (11.5-14.0); SEGMENTED NEUTROPHILS % (AUTO) 84.4 % (42-78); TOTAL CELLS COUNTED % (AUTO) 100 %; WHITE BLOOD COUNT 11.8 10^3/uL (4.0-10.5)
[2018-06-25 06:27] LABS: ARTERIAL BLOOD FIO2 60%
[2018-06-25 06:42] LABS: ALANINE AMINOTRANSFERASE 20 U/L (21-72); ALBUMIN 2.9 g/dL (3.5-5.0); ALKALINE PHOSPHATASE 51 U/L (38-126); ANION GAP 9 (5-19); ASPARTATE AMINO TRANSFERASE 15 U/L (17-59); BILIRUBIN,DIRECT 0.3 mg/dL (0.0-0.4); BILIRUBIN,TOTAL 0.3 mg/dL (0.2-1.3); BLOOD UREA NITROGEN 23 mg/dL (7-20); CALCIUM 8.7 mg/dL (8.4-10.2); CARBON DIOXIDE 24 mmol/L (22-30); CHLORIDE 109 mmol/L (98-107); GLUCOSE 160 mg/dL (75-110); PHOSPHORUS 3.2 mg/dL (2.5-4.5); POTASSIUM 3.9 mmol/L (3.6-5.0); SODIUM 142.4 mmol/L (137-145)
--- NOTE | 2018-06-25 08:33 | RADIOLOGY REPORT (SQ) ---
EXAM DESCRIPTION: CHEST SINGLE VIEW COMPLETED DATE/TIME: 06/25/2018 8:08 am REASON FOR STUDY: resp failure/pna COMPARISON: 06/24/2018 EXAM PARAMETERS: NUMBER OF VIEWS: One view. TECHNIQUE: Single frontal radiographic view of the chest acquired. RADIATION DOSE: NA LIMITATIONS: None. FINDINGS: LUNGS AND PLEURA: Stable bilateral small pleural effusions and mild compressive atelectat ic changes in the lower lungs. No pneumothorax. MEDIASTINUM AND HILAR STRUCTURES: No masses. Contour normal. HEART AND VASCULAR STRUCTURES: Heart normal in size. Normal vasculature. BONES: No acute findings. HARDWARE: Support devices, appropriate location without change. OTHER: No other significant finding. IMPRESSION: 1 No significant interval changes since the prior examination dated 06/24/2018. Stable b ilateral small pleural effusions. 2 Support devices, unchanged in location. TECHNICAL DOCUMENTATION: JOB ID: [id number] [employer]- All Rights Reserved Reading location - IP/workstation name: [email or web address]
[2018-06-25] MEDS: ACETYLCYSTEINE 20% SOLN 800 MG/4 ML VIAL.NEB NEB SCH ×2 (08:37→21:40)
[2018-06-25] MEDS: TOBRAMYCIN SULFATE NEB 40 MG/ML 30 ML NEB SCH ×2 (08:37→21:40)
[2018-06-25] MEDS: LACTOBACILLUS ACIDOPHILUS 250 MG TAB NG SCH (10:27)
[2018-06-25] MEDS: MULTIVIT-STRESS FORMULA/ZINC TABLET NG SCH (10:27)
[2018-06-25] MEDS: LORATADINE 10 MG TABLET NG SCH (10:27)
[2018-06-25] MEDS: FUROSEMIDE 20 MG TABLET NG SCH (10:28)
[2018-06-25] MEDS: DOCUSATE SODIUM 100 MG CAPSULE PO SCH ×2 (10:28→17:11)
[2018-06-25] MEDS: FLUTICASONE NASAL SPRAY 50 MCG/SPRY 120 SPRAY/16 GM NASL SCH ×2 (10:28→22:21)
[2018-06-25] MEDS: FOLIC ACID 1 MG TABLET NG SCH (10:29)
[2018-06-25] MEDS: CHOLECALCIFEROL (D3) 1,000 UNIT TABLET NG SCH (10:29)
[2018-06-25] MEDS: RIVAROXABAN 10 MG TABLET NG SCH (10:29)
[2018-06-25] MEDS: FAMOTIDINE INJ/PF 20 MG/2 ML SDV IV SCH ×2 (10:29→22:23)
[2018-06-25] MEDS: LEVOFLOXACIN 750 MG/D5W RTU 750 MG/150 ML RTUPB IV SCH (10:30)
[2018-06-25] MEDS: CYANOCOBALAMIN (VITAMIN B-12) 1,000 MCG TABLET NG SCH (10:31)
[2018-06-25] MEDS: NORMAL SALINE 10 ML SDV (SCHEDULED) IV SCH ×2 (10:32→22:24)
[2018-06-25] MEDS: MULTIVITAMIN TABLET PO SCH (10:32)
--- NOTE | 2018-06-25 10:37 | PDOC PROGRESS REPORT ---
Subjective Progress Note for:: 06/25/18 Subjective:: . Patient went into acute respiratory failure. Etiology still unclear. Was found to be hypercapnic with a PCO2 of more than [address] of [address] scan reveals no evidence of acute pulmonary emboli. There is possible atelectasis otherwise nothing of significance. Patient does receive opioids chronically but this is not acute and he did receive some Narcan with no effects He remains intubated and sedated. He is also off Levophed CT reveals no evidence of pulmonary emboli. Patient was actually on Xarelto prior to this episode. Still unclear what the sentinel event is. Patient unable to tolerate weaning as he is on 55% FIO2. He otherwise remains clinically stable Reason For Visit: LOWER EXTREMITIES CELLULITIS Physical Exam Vital Signs: Temp Pulse Resp BP Pulse Ox 97.9 F 53 L 20 139/71 H 96 06/25/18 06:11 06/25/18 01:08 06/25/18 06:11 06/25/18 06:11 06/25/18 06:11 Intake & Output 06/24/18 06/25/18 06/26/18 06:59 06:59 06:59 Intake Total 2718 1756 Output Total 2255 2250 300 Balance 463 -494 -300 Weight 131.4 kg 134.4 kg General appearance: PRESENT: no acute distress, morbidly obese, well-developed, well-nourished, other - Currently intubated Head exam: PRESENT: atraumatic, normocephalic Eye exam: PRESENT: conjunctiva pink, EOMI. ABSENT: scleral icterus Ear exam: PRESENT: normal external ear exam Mouth exam: PRESENT: moist Neck exam: ABSENT: carotid bruit, JVD, lymphadenopathy, thyromegaly Respiratory exam: PRESENT: decreased breath sounds, unlabored. ABSENT: rales, rhonchi, wheezes Cardiovascular exam: PRESENT: RRR. ABSENT: diastolic murmur, rubs, systolic murmur Pulses: PRESENT: normal dorsalis pedis pul Vascular exam: PRESENT: normal capillary refill GI/Abdominal exam: PRESENT: normal bowel sounds, soft. ABSENT: distended, guarding, mass, organolmegaly, rebound, tenderness Rectal exam: PRESENT: deferred Extremities exam: PRESENT: +2 edema, other - Bilateral lymphedema. ABSENT: calf tenderness, clubbing, pedal edema Neurological exam: PRESENT: other - Sedated. ABSENT: oriented to person, oriented to place, oriented to time Psychiatric exam: PRESENT: other - Unable to evaluate Skin exam: PRESENT: dry, intact, rash - Lower extremities, warm. ABSENT: cyanosis Results Laboratory Results: 06/25/18 05:15 06/25/18 05:15 06/25/18 06/25/18 06/25/18 05:15 05:15 05:15 WBC 11.8 H RBC 4.09 L Hgb 11.8 L Hct 36.5 L MCV 90 MCH 28.9 MCHC 32.3 RDW 18.9 H Plt Count 271 Seg Neutrophils % 84.4 H Lymphocytes % 8.2 L Monocytes % 7.1 Eosinophils % 0.0 Basophils % 0.3 Absolute Neutrophils 10.0 H Absolute Lymphocytes 1.0 Absolute Monocytes 0.8 Absolute Eosinophils 0.0 Absolute Basophils 0.0 Carbonic Acid 1.17 HCO3/H2CO3 Ratio 22:1 ABG pH 7.45 ABG pCO2 39.0 ABG pO2 102.7 H ABG HCO3 26.7 H ABG O2 Saturation 97.9 ABG Base Excess 2.7 FiO2 60% Sodium 142.4 Potassium 3.9 Chloride 109 H Carbon Dioxide 24 Anion Gap 9 BUN 23 H Creatinine 0.64 Est GFR ( Amer) > 60 Est GFR (Non-Af Amer) > 60 Glucose 160 H Calcium 8.7 Phosphorus 3.2 Magnesium 2.3 Total Bilirubin 0.3 AST 15 L ALT 20 L Alkaline Phosphatase 51 Total Protein 7.0 Albumin 2.9 L 06/20/18 06/20/18 06/20/18 05:45 05:45 05:45 Creatine Kinase 73 CK-MB (CK-2) 0.62 Troponin I 0.014 NT-Pro-B Natriuret Pep 64 06/20/18 06/20/18 06/20/18 10:30 10:30 10:30 Creatine Kinase 97 Cancelled CK-MB (CK-2) 1.25 Troponin I 0.154 NT-Pro-B Natriuret Pep 06/20/18 06/20/18 06/20/18 10:30 16:02 16:02 Creatine Kinase 78 CK-MB (CK-2) Cancelled 1.12 Troponin I Cancelled 0.132 NT-Pro-B Natriuret Pep 06/20/18 06/20/18 22:15 22:15 Creatine Kinase 63 CK-MB (CK-2) 1.00 Troponin I 0.101 NT-Pro-B Natriuret Pep Impressions: Guidance Fluoroscopy 06/11/18 00:00 IMPRESSION: SUCCESSFUL PLACEMENT OF A 5 FR DUAL LUMEN 13 9 CM PICC IN THE LEFT BASILIC VEIN. Interventional Vascular Procedure 06/11/18 00:00 IMPRESSION: SUCCESSFUL PLACEMENT OF A 5 FR DUAL LUMEN 13 9 CM PICC IN THE LEFT BASILIC VEIN. PICC Line Insertion 06/11/18 00:00 IMPRESSION: SUCCESSFUL PLACEMENT OF A 5 FR DUAL LUMEN 13 9 CM PICC IN THE LEFT BASILIC VEIN. Chest/Abdomen CTA 06/20/18 09:17 IMPRESSION: No CT angio evidence of acute pulmonary emboli. PICC line, endotracheal tube, nasogastric tube in good positioning. Bandlike airspace disease in the dependent portions of both lungs, likely atelectasis. Chest X-Ray 06/25/18 06:00 IMPRESSION: 1 No significant interval changes since the prior examination dated 06/24/2018. Stable bilateral small pleural effusions. 2 Support devices, unchanged in location. Assessment & Plan - Time Time Spent with patient: 15-24 minutes Medications reviewed and adjusted accordingly: Yes Anticipated discharge: SNF - Inpatient Certification Based on my medical assessment, after consideration of the patient's comorbidities, presenting symptoms, or acuity I expect that the services needed warrant INPATIENT care.: Yes Medical Necessity: Other - On mechanical ventilation - Plan Summary Plan Summary: 1 acute respiratory failure, hypoxemic and hypercapnic with respiratory acidosis. Precise etiology is still unclear. Sputum culture yielded Klebsiella , MSSA. Patient is on Levaquin which was started by Dr. Patterson. He had been on ceftriaxone prior to that. Please note sensitivities, MSSA resistant to Levaquin 2. Hyper kalemia -corrected 3. Leukocytosis -mild likely secondary to steroids 4. chronic lymphedema. 5. Elevated troponin likely secondary to demand ischemia. Appreciate cardiology input 6. Chronic obstructive pulmonary disease continue bronchodilators and steroids 7. Morbid obesity 8. Alcohol dependence 9. Obstructive sleep apnea 10. Chronic DVT of axillary vein continue on Xarelto 11. Cellulitis of both lower extremity patient -treated with antibiotics and this was completed prior to him going into respiratory distress
[2018-06-25] MEDS: FENTANYL 100 MCG/HR PATCH.TD72 TD SCH (14:35)
[2018-06-25] MEDS ORDERED: MAG HYDROX/AL HYDROX/SIMETH SUSP 30 ML UDCUP NG PRN (15:00)
[2018-06-25] MEDS: PREGABALIN 75 MG CAPSULE NG SCH ×2 (17:36→22:22)
[2018-06-25] MEDS: MELATONIN 5 MG TABLET PO SCH (22:21)
[2018-06-25] MEDS: TRAZODONE HCL 50 MG TABLET NG SCH (22:22)
[2018-06-25] MEDS: MONTELUKAST SODIUM 10 MG TABLET NG SCH (22:22)
[2018-06-25] MEDS: ATORVASTATIN CALCIUM 40 MG TABLET NG SCH (22:22)
[2018-06-26] MEDS: PROPOFOL 1,000 MG/100 ML INFUS..BTL IV PRN ×3 (00:28→07:22)
[2018-06-26] MEDS: IPRATROPIUM/ALBUTEROL 0.5-2.5 MG/3 ML AMPUL NEB SCH ×4 (02:09→20:43)
[2018-06-26] MEDS: NORMAL SALINE 1000 ML 1,000 ML IV PRN ×2 (03:05→21:52)
[2018-06-26] MEDS: METHYLPREDNISOLONE INJ 125 MG/2 ML SDV IV SCH ×3 (03:05→21:52)
[2018-06-26] MEDS: PREGABALIN 75 MG CAPSULE NG SCH ×3 (05:17→21:54)
[2018-06-26] MEDS: FLUTICASONE/SALMETEROL DISKUS 250-50 MCG/DOSE IH SCH ×2 (05:18→17:33)
[2018-06-26 05:36] LABS: ARTERIAL BLOOD BASE EXCESS -0.3 mmol/L; ARTERIAL BLOOD H2CO3 1.05 mmol/L (1.05-1.35); ARTERIAL BLOOD HCO3 23.3 mmol/L (20-26); ARTERIAL BLOOD PH 7.44 (7.35-7.45); ARTERIAL BLOOD PO2 103.4 mmHg (80-100); ARTERIAL BLOOD TOTAL CO2 24.4 mmol/L (23-27)
[2018-06-26 05:37] LABS: ARTERIAL BLOOD FIO2 60%
[2018-06-26 05:52] LABS: ABSOLUTE MONOCYTES (AUTO) 0.6 10^3/uL (0.1-1.4); ABSOLUTE NEUT (AUTO) 6.9 10^3/uL (1.7-8.2); BASOPHILS % (AUTO) 0.1 % (0-2); HEMATOCRIT 36.4 % (37.9-51.0); HEMOGLOBIN 12.3 g/dL (13.5-17.0); LYMPHOCYTES % (AUTO) 11.5 % (13-45); MEAN CORPUSCULAR HEMOGLOBIN 29.9 pg (27.0-33.4); MEAN CORPUSCULAR HGB CONC 33.8 g/dL (32.0-36.0); MEAN CORPUSCULAR VOLUME 88 fl (80-97); MONOCYTES % (AUTO) 7.4 % (3-13); PLATELET COUNT 252 10^3/uL (150-450); RED BLOOD COUNT 4.12 10^6/uL (4.35-5.55); RED CELL DISTRIBUTION WIDTH 18.6 % (11.5-14.0); TOTAL CELLS COUNTED % (AUTO) 100 %; WHITE BLOOD COUNT 8.5 10^3/uL (4.0-10.5)
[2018-06-26 06:10] LABS: ALANINE AMINOTRANSFERASE 20 U/L (21-72); ALBUMIN 2.9 g/dL (3.5-5.0); ALKALINE PHOSPHATASE 48 U/L (38-126); ANION GAP 11 (5-19); ASPARTATE AMINO TRANSFERASE 14 U/L (17-59); BILIRUBIN,DIRECT 0.3 mg/dL (0.0-0.4); BILIRUBIN,TOTAL 0.3 mg/dL (0.2-1.3); BLOOD UREA NITROGEN 23 mg/dL (7-20); CALCIUM 8.7 mg/dL (8.4-10.2); CARBON DIOXIDE 24 mmol/L (22-30); CHLORIDE 110 mmol/L (98-107); GLUCOSE 192 mg/dL (75-110); POTASSIUM 4.1 mmol/L (3.6-5.0); TOTAL PROTEIN 6.7 g/dL (6.3-8.2)
[2018-06-26] MEDS ORDERED: FENTANYL CITRATE INJ/PF 100 MCG/2 ML AMPUL IV PRN (09:04)
[2018-06-26] MEDS: ACETYLCYSTEINE 20% SOLN 800 MG/4 ML VIAL.NEB NEB SCH ×2 (09:19→20:43)
[2018-06-26] MEDS: TOBRAMYCIN SULFATE NEB 40 MG/ML 30 ML NEB SCH ×2 (09:19→20:43)
[2018-06-26] MEDS: LEVOFLOXACIN 750 MG/D5W RTU 750 MG/150 ML RTUPB IV SCH (12:36)
[2018-06-26] MEDS: PANTOPRAZOLE SODIUM 40 MG VIAL IV SCH (12:38)
[2018-06-26] MEDS: NORMAL SALINE 10 ML SDV (SCHEDULED) IV SCH ×2 (12:38→23:39)
[2018-06-26] MEDS: MULTIVIT-STRESS FORMULA/ZINC TABLET NG SCH (12:38)
[2018-06-26] MEDS: LORATADINE 10 MG TABLET NG SCH (12:38)
[2018-06-26] MEDS: DOCUSATE SODIUM 100 MG CAPSULE PO SCH ×2 (12:39→17:33)
[2018-06-26] MEDS: MULTIVITAMIN TABLET PO SCH (12:39)
[2018-06-26] MEDS: FOLIC ACID 1 MG TABLET NG SCH (12:39)
[2018-06-26] MEDS: FLUTICASONE NASAL SPRAY 50 MCG/SPRY 120 SPRAY/16 GM NASL SCH ×2 (12:39→23:38)
[2018-06-26] MEDS: FUROSEMIDE 20 MG TABLET NG SCH (12:40)
[2018-06-26] MEDS: LACTOBACILLUS ACIDOPHILUS 250 MG TAB NG SCH (12:40)
[2018-06-26] MEDS: CHOLECALCIFEROL (D3) 1,000 UNIT TABLET NG SCH (12:40)
[2018-06-26] MEDS: RIVAROXABAN 10 MG TABLET NG SCH (12:40)
[2018-06-26] MEDS: CYANOCOBALAMIN (VITAMIN B-12) 1,000 MCG TABLET NG SCH (12:46)
[2018-06-26] MEDS: METOCLOPRAMIDE HCL INJ/PF 10 MG/2 ML SDV IV SCH ×2 (15:45→21:54)
--- NOTE | 2018-06-26 20:01 | PDOC PROGRESS REPORT ---
Subjective Progress Note for:: 06/26/18 Subjective:: Patient was transferred to the ICU because of acute respiratory failure with no clear etiology. No acute event overnight. Patient and is able to follow commands. He is having high residuals on the NG. Reason For Visit: LOWER EXTREMITIES CELLULITIS Physical Exam Vital Signs: Temp Pulse Resp BP Pulse Ox 99.0 F 62 19 116/64 95 06/26/18 18:00 06/26/18 14:51 06/26/18 18:00 06/26/18 17:47 06/26/18 18:00 Intake & Output 06/25/18 06/26/18 06/27/18 06:59 06:59 06:59 Intake Total 1756 3545 1271 Output Total 2250 2650 745 Balance -494 895 526 Weight 296 lb 4.82 oz 297 lb 2.93 oz General appearance: PRESENT: no acute distress, well-developed, well-nourished, other - Intubated Head exam: PRESENT: atraumatic, normocephalic Eye exam: PRESENT: conjunctiva pink, EOMI, PERRLA. ABSENT: scleral icterus Ear exam: PRESENT: normal external ear exam Neck exam: ABSENT: carotid bruit, JVD, lymphadenopathy, thyromegaly Respiratory exam: PRESENT: clear to auscultation lui. ABSENT: rales, rhonchi, wheezes Cardiovascular exam: PRESENT: RRR. ABSENT: diastolic murmur, rubs, systolic murmur GI/Abdominal exam: PRESENT: normal bowel sounds, soft. ABSENT: distended, guarding, mass, organolmegaly, rebound, tenderness Rectal exam: PRESENT: deferred Neurological exam: PRESENT: other - Intubated and sedated but arousable, is able to follow commands when awake Results Laboratory Results: 06/26/18 05:10 06/26/18 05:10 06/26/18 06/26/18 06/26/18 05:10 05:10 05:10 WBC 8.5 RBC 4.12 L Hgb 12.3 L Hct 36.4 L MCV 88 MCH 29.9 MCHC 33.8 RDW 18.6 H Plt Count 252 Seg Neutrophils % 81.0 H Lymphocytes % 11.5 L Monocytes % 7.4 Eosinophils % 0.0 Basophils % 0.1 Absolute Neutrophils 6.9 Absolute Lymphocytes 1.0 Absolute Monocytes 0.6 Absolute Eosinophils 0.0 Absolute Basophils 0.0 Carbonic Acid 1.05 HCO3/H2CO3 Ratio 22:1 ABG pH 7.44 ABG pCO2 35.0 ABG pO2 103.4 H ABG HCO3 23.3 ABG O2 Saturation 98.0 ABG Base Excess -0.3 FiO2 60% Sodium 145.0 Potassium 4.1 Chloride 110 H Carbon Dioxide 24 Anion Gap 11 BUN 23 H Creatinine 0.61 Est GFR ( Amer) > 60 Est GFR (Non-Af Amer) > 60 Glucose 192 H Serum Osmolality Calcium 8.7 Magnesium 2.2 Total Bilirubin 0.3 AST 14 L ALT 20 L Alkaline Phosphatase 48 Total Protein 6.7 Albumin 2.9 L Urine Osmolality 06/26/18 06/26/18 16:30 16:30 WBC RBC Hgb Hct MCV MCH MCHC RDW Plt Count Seg Neutrophils % Lymphocytes % Monocytes % Eosinophils % Basophils % Absolute Neutrophils Absolute Lymphocytes Absolute Monocytes Absolute Eosinophils Absolute Basophils Carbonic Acid HCO3/H2CO3 Ratio ABG pH ABG pCO2 ABG pO2 ABG HCO3 ABG O2 Saturation ABG Base Excess FiO2 Sodium Potassium Chloride Carbon Dioxide Anion Gap BUN Creatinine Est GFR ( Amer) Est GFR (Non-Af Amer) Glucose Serum Osmolality 305 H Calcium Magnesium Total Bilirubin AST ALT Alkaline Phosphatase Total Protein Albumin Urine Osmolality 827 06/24/18 15:40 Tracheal Aspirate Gram Stain - Final 06/24/18 15:40 Tracheal Aspirate Sputum Culture - Final Yeast, Not Cate Albicans Greatly Reduced Normal Kimberly 06/20/18 06/20/18 06/20/18 05:45 05:45 05:45 Creatine Kinase 73 CK-MB (CK-2) 0.62 Troponin I 0.014 NT-Pro-B Natriuret Pep 64 06/20/18 06/20/18 06/20/18 10:30 10:30 10:30 Creatine Kinase 97 Cancelled CK-MB (CK-2) 1.25 Troponin I 0.154 NT-Pro-B Natriuret Pep 06/20/18 06/20/18 06/20/18 10:30 16:02 16:02 Creatine Kinase 78 CK-MB (CK-2) Cancelled 1.12 Troponin I Cancelled 0.132 NT-Pro-B Natriuret Pep 06/20/18 06/20/18 22:15 22:15 Creatine Kinase 63 CK-MB (CK-2) 1.00 Troponin I 0.101 NT-Pro-B Natriuret Pep Impressions: Guidance Fluoroscopy 06/11/18 00:00 IMPRESSION: SUCCESSFUL PLACEMENT OF A 5 FR DUAL LUMEN 13 9 CM PICC IN THE LEFT BASILIC VEIN. Interventional Vascular Procedure 06/11/18 00:00 IMPRESSION: SUCCESSFUL PLACEMENT OF A 5 FR DUAL LUMEN 13 9 CM PICC IN THE LEFT BASILIC VEIN. PICC Line Insertion 06/11/18 00:00 IMPRESSION: SUCCESSFUL PLACEMENT OF A 5 FR DUAL LUMEN 13 9 CM PICC IN THE LEFT BASILIC VEIN. Chest/Abdomen CTA 06/20/18 09:17 IMPRESSION: No CT angio evidence of acute pulmonary emboli. PICC line, endotracheal tube, nasogastric tube in good positioning. Bandlike airspace disease in the dependent portions of both lungs, likely atelectasis. Chest X-Ray 06/25/18 06:00 IMPRESSION: 1 No significant interval changes since the prior examination dated 06/24/2018. Stable bilateral small pleural effusions. 2 Support devices, unchanged in location. Assessment & Plan - Diagnosis (1) Acute hypercapnic respiratory failure Is this a current diagnosis for this admission?: Yes Plan: Patient with acute hypercapnic respiratory failure in the floor. Although exact etiology is not clear, medication effect from opiates is a possible cause. Noted that patient did not have improvement when he was given Narcan during the acute event. Continue weaning as tolerated. Patient is down to FiO2 50 but PEEP remains elevated at 10. Pulmonology following. Patient is on day 6 on the ventilator. Will start tube feeding with Dr. Cespedes at 10 cc then gradually increased to go 35 cc/h. Reduce normal saline to 50 cc/h. Patient will also be started on Reglan because of high residuals. - Time Time Spent with patient: 25-34 minutes
[2018-06-26] MEDS: TRAZODONE HCL 50 MG TABLET NG SCH (21:53)
[2018-06-26] MEDS: MONTELUKAST SODIUM 10 MG TABLET NG SCH (21:53)
[2018-06-26] MEDS: ATORVASTATIN CALCIUM 40 MG TABLET NG SCH (21:53)
[2018-06-26] MEDS: SCOPOLAMINE HYDROBROMIDE 1.5 MG PATCH.TD72 TD SCH (21:56)
[2018-06-26] MEDS: MELATONIN 5 MG TABLET PO SCH (23:38)
[2018-06-27] MEDS: IPRATROPIUM/ALBUTEROL 0.5-2.5 MG/3 ML AMPUL NEB SCH ×4 (02:35→20:15)
[2018-06-27] MEDS: METHYLPREDNISOLONE INJ 125 MG/2 ML SDV IV SCH ×3 (03:13→22:15)
[2018-06-27] MEDS: METOCLOPRAMIDE HCL INJ/PF 10 MG/2 ML SDV IV SCH ×3 (05:12→22:13)
[2018-06-27] MEDS: PREGABALIN 75 MG CAPSULE NG SCH ×3 (05:12→22:12)
[2018-06-27] MEDS: FLUTICASONE/SALMETEROL DISKUS 250-50 MCG/DOSE IH SCH ×2 (05:13→19:10)
[2018-06-27 05:29] LABS: HEMATOCRIT 36.1 % (37.9-51.0); HEMOGLOBIN 12.2 g/dL (13.5-17.0); MEAN CORPUSCULAR HEMOGLOBIN 29.7 pg (27.0-33.4); MEAN CORPUSCULAR HGB CONC 33.8 g/dL (32.0-36.0); MEAN CORPUSCULAR VOLUME 88 fl (80-97); PLATELET COUNT 292 10^3/uL (150-450); RED BLOOD COUNT 4.11 10^6/uL (4.35-5.55); RED CELL DISTRIBUTION WIDTH 18.5 % (11.5-14.0); WHITE BLOOD COUNT 14.6 10^3/uL (4.0-10.5)
[2018-06-27 05:41] LABS: ARTERIAL BLOOD BASE EXCESS 0.5 mmol/L; ARTERIAL BLOOD H2CO3 1.09 mmol/L (1.05-1.35); ARTERIAL BLOOD HCO3 24.3 mmol/L (20-26); ARTERIAL BLOOD O2 SATURATION 97.5 % (94-98); ARTERIAL BLOOD PCO2 36.2 mmHg (35-45); ARTERIAL BLOOD PH 7.44 (7.35-7.45); ARTERIAL BLOOD PO2 94.6 mmHg (80-100); ARTERIAL BLOOD TOTAL CO2 25.4 mmol/L (23-27)
[2018-06-27 05:42] LABS: ARTERIAL BLOOD FIO2 50%
[2018-06-27 05:58] LABS: ALANINE AMINOTRANSFERASE 26 U/L (21-72); ALBUMIN 2.9 g/dL (3.5-5.0); ALKALINE PHOSPHATASE 44 U/L (38-126); ANION GAP 10 (5-19); ASPARTATE AMINO TRANSFERASE 16 U/L (17-59); BILIRUBIN,DIRECT 0.3 mg/dL (0.0-0.4); BILIRUBIN,TOTAL 0.6 mg/dL (0.2-1.3); BLOOD UREA NITROGEN 27 mg/dL (7-20); CALCIUM 8.7 mg/dL (8.4-10.2); CARBON DIOXIDE 25 mmol/L (22-30); CHLORIDE 110 mmol/L (98-107); GLUCOSE 170 mg/dL (75-110); POTASSIUM 3.7 mmol/L (3.6-5.0); SODIUM 144.8 mmol/L (137-145); TOTAL PROTEIN 6.7 g/dL (6.3-8.2)
[2018-06-27 06:34] LABS: ABSOLUTE LYMPHOCYTES# (MANUAL) 1.8 10^3/uL (0.5-4.7); ABSOLUTE MONOCYTES # (MANUAL) 0.4 10^3/uL (0.1-1.4); ABSOLUTE NEUTROPHILS# (MANUAL) 12.4 10^3/uL (1.7-8.2); BASOPHILS % (MANUAL) 0 % (0-2); EOSINOPHILS % (MANUAL) 0 % (0-6); LYMPHOCYTES % (MANUAL) 12 % (13-45); METAMYELOCYTES % (MANUAL) 2 % (0); MONOCYTES % (MANUAL) 3 % (3-13); NUCLEATED RED BLOOD CELLS 1 /100 WBC (0); SEGMENTED NEUTROPHILS % (MAN) 83 % (42-78); TOTAL CELLS COUNTED 100
[2018-06-27 06:39] LABS: ANISOCYTOSIS 2+; HOWELL-JOLLY BODIES PRESENT; OVALOCYTES SLIGHT; POIKILOCYTOSIS 2+; SCHISTOCYTES SLIGHT; TARGET CELLS 1+
[2018-06-27 06:40] LABS: PLATELET COMMENT ADEQUATE; PLATELET LARGE PRESENT
--- NOTE | 2018-06-27 07:17 | RADIOLOGY REPORT (SQ) ---
EXAM DESCRIPTION: XR CHEST 1 VIEW COMPLETED DATE/TME: 06/27/2018 06:00 CLINICAL HISTORY: 63 years Male, resp failure COMPARISON: 2 days prior. NUMBER OF VIEWS/TECHNIQUE: 1/AP FINDINGS: Moderate left lower retrocardiac opacity, moderate left basilar opacity-effusion, moderate interstitial markings, mildly enlarged cardiac silhouette, atherosclerosis, endotracheal tube tip is 7 cm from the jose, atherosclerosis, adequate appearing enteric tube obscured distally, left upper abdominal clips, left subclavian PICC tip at the SVC. No pneumothorax. Stable bony thorax. IMPRESSION: No significant change.
[2018-06-27] MEDS: ACETYLCYSTEINE 20% SOLN 800 MG/4 ML VIAL.NEB NEB SCH ×2 (08:15→20:18)
[2018-06-27] MEDS: TOBRAMYCIN SULFATE NEB 40 MG/ML 30 ML NEB SCH ×2 (08:16→20:16)
[2018-06-27] MEDS: MULTIVIT-STRESS FORMULA/ZINC TABLET NG SCH (09:59)
[2018-06-27] MEDS: FUROSEMIDE 20 MG TABLET NG SCH (09:59)
[2018-06-27] MEDS: RIVAROXABAN 10 MG TABLET NG SCH (09:59)
[2018-06-27] MEDS: MULTIVITAMIN TABLET PO SCH (09:59)
[2018-06-27] MEDS: LACTOBACILLUS ACIDOPHILUS 250 MG TAB NG SCH (10:00)
[2018-06-27] MEDS: LORATADINE 10 MG TABLET NG SCH (10:00)
[2018-06-27] MEDS: CHOLECALCIFEROL (D3) 1,000 UNIT TABLET NG SCH (10:00)
[2018-06-27] MEDS: PANTOPRAZOLE SODIUM 40 MG VIAL IV SCH (10:01)
[2018-06-27] MEDS: MIDAZOLAM 2 MG/2 ML INJ IV PRN ×3 (10:01→23:48)
[2018-06-27] MEDS: FLUTICASONE NASAL SPRAY 50 MCG/SPRY 120 SPRAY/16 GM NASL SCH ×2 (10:03→22:12)
[2018-06-27] MEDS: DOCUSATE SODIUM 100 MG CAPSULE PO SCH ×2 (10:03→19:10)
[2018-06-27] MEDS: NORMAL SALINE 10 ML SDV (SCHEDULED) IV SCH ×2 (10:04→22:14)
[2018-06-27] MEDS: NORMAL SALINE 1000 ML 1,000 ML IV PRN (10:05)
[2018-06-27] MEDS: CYANOCOBALAMIN (VITAMIN B-12) 1,000 MCG TABLET NG SCH (10:23)
[2018-06-27] MEDS: LEVOFLOXACIN 750 MG/D5W RTU 750 MG/150 ML RTUPB IV SCH (10:30)
[2018-06-27] MEDS: FOLIC ACID 1 MG TABLET NG SCH (10:31)
--- NOTE | 2018-06-27 13:17 | PDOC PROGRESS REPORT ---
Subjective Progress Note for:: 06/27/18 Subjective:: Patient was transferred to the ICU because of acute respiratory failure. No acute event overnight. He is only on propofol. Patient and is able to follow commands. He continues to have high residuals on the NG. Tube feeding was not initiated due to residual. Reason For Visit: LOWER EXTREMITIES CELLULITIS Physical Exam Vital Signs: Temp Pulse Resp BP Pulse Ox 97.5 F 65 10 L 124/72 95 06/27/18 10:00 06/27/18 08:15 06/27/18 10:00 06/27/18 09:48 06/27/18 10:00 Intake & Output 06/26/18 06/27/18 06/28/18 06:59 06:59 06:59 Intake Total 3545 1271 Output Total 2650 1470 375 Balance 895 -199 -375 Weight 297 lb 2.93 oz 294 lb 15.656 oz General appearance: PRESENT: no acute distress, well-developed, well-nourished Head exam: PRESENT: atraumatic Eye exam: PRESENT: conjunctiva pink, EOMI, PERRLA. ABSENT: scleral icterus Mouth exam: PRESENT: dry mucosa Neck exam: ABSENT: carotid bruit, JVD, lymphadenopathy, thyromegaly Respiratory exam: PRESENT: clear to auscultation lui. ABSENT: rales, rhonchi, wheezes Pulses: PRESENT: normal dorsalis pedis pul GI/Abdominal exam: PRESENT: normal bowel sounds, soft. ABSENT: distended, guarding, mass, organolmegaly, rebound, tenderness Rectal exam: PRESENT: deferred - intubated, arousable and is able to follow commands Results Laboratory Results: 06/27/18 05:00 06/27/18 05:00 06/26/18 06/26/18 06/27/18 16:30 16:30 05:00 WBC RBC Hgb Hct MCV MCH MCHC RDW Plt Count Seg Neutrophils % Lymphocytes % Monocytes % Eosinophils % Basophils % Absolute Neutrophils Absolute Lymphocytes Absolute Monocytes Absolute Eosinophils Absolute Basophils Carbonic Acid 1.09 HCO3/H2CO3 Ratio 22:1 ABG pH 7.44 ABG pCO2 36.2 ABG pO2 94.6 ABG HCO3 24.3 ABG O2 Saturation 97.5 ABG Base Excess 0.5 FiO2 50% Sodium Potassium Chloride Carbon Dioxide Anion Gap BUN Creatinine Est GFR ( Amer) Est GFR (Non-Af Amer) Glucose Serum Osmolality 305 H Calcium Magnesium Total Bilirubin AST ALT Alkaline Phosphatase Total Protein Albumin Urine Osmolality 827 06/27/18 06/27/18 05:00 05:00 WBC 14.6 H RBC 4.11 L Hgb 12.2 L Hct 36.1 L MCV 88 MCH 29.7 MCHC 33.8 RDW 18.5 H Plt Count 292 Seg Neutrophils % Not Reportable Lymphocytes % Not Reportable Monocytes % Not Reportable Eosinophils % Not Reportable Basophils % Not Reportable Absolute Neutrophils Not Reportable Absolute Lymphocytes Not Reportable Absolute Monocytes Not Reportable Absolute Eosinophils Not Reportable Absolute Basophils Not Reportable Carbonic Acid HCO3/H2CO3 Ratio ABG pH ABG pCO2 ABG pO2 ABG HCO3 ABG O2 Saturation ABG Base Excess FiO2 Sodium 144.8 Potassium 3.7 Chloride 110 H Carbon Dioxide 25 Anion Gap 10 BUN 27 H Creatinine 0.74 Est GFR ( Amer) > 60 Est GFR (Non-Af Amer) > 60 Glucose 170 H Serum Osmolality Calcium 8.7 Magnesium 2.2 Total Bilirubin 0.6 AST 16 L ALT 26 Alkaline Phosphatase 44 Total Protein 6.7 Albumin 2.9 L Urine Osmolality 06/24/18 15:40 Tracheal Aspirate Gram Stain - Final 06/24/18 15:40 Tracheal Aspirate Sputum Culture - Final Yeast, Not Cate Albicans Greatly Reduced Normal Kimberly 06/20/18 06/20/18 06/20/18 05:45 05:45 05:45 Creatine Kinase 73 CK-MB (CK-2) 0.62 Troponin I 0.014 NT-Pro-B Natriuret Pep 64 06/20/18 06/20/18 06/20/18 10:30 10:30 10:30 Creatine Kinase 97 Cancelled CK-MB (CK-2) 1.25 Troponin I 0.154 NT-Pro-B Natriuret Pep 06/20/18 06/20/18 06/20/18 10:30 16:02 16:02 Creatine Kinase 78 CK-MB (CK-2) Cancelled 1.12 Troponin I Cancelled 0.132 NT-Pro-B Natriuret Pep 06/20/18 06/20/18 22:15 22:15 Creatine Kinase 63 CK-MB (CK-2) 1.00 Troponin I 0.101 NT-Pro-B Natriuret Pep Impressions: Guidance Fluoroscopy 06/11/18 00:00 IMPRESSION: SUCCESSFUL PLACEMENT OF A 5 FR DUAL LUMEN 13 9 CM PICC IN THE LEFT BASILIC VEIN. Interventional Vascular Procedure 06/11/18 00:00 IMPRESSION: SUCCESSFUL PLACEMENT OF A 5 FR DUAL LUMEN 13 9 CM PICC IN THE LEFT BASILIC VEIN. PICC Line Insertion 06/11/18 00:00 IMPRESSION: SUCCESSFUL PLACEMENT OF A 5 FR DUAL LUMEN 13 9 CM PICC IN THE LEFT BASILIC VEIN. Chest/Abdomen CTA 06/20/18 09:17 IMPRESSION: No CT angio evidence of acute pulmonary emboli. PICC line, endotracheal tube, nasogastric tube in good positioning. Bandlike airspace disease in the dependent portions of both lungs, likely atelectasis. Chest X-Ray 06/27/18 06:00 IMPRESSION: No significant change. Assessment & Plan - Diagnosis (1) Acute hypercapnic respiratory failure Is this a current diagnosis for this admission?: Yes Plan: Patient with acute hypercapnic respiratory failure in the floor. Although exact etiology is not clear, medication effect from opiates is a possible cause. Noted that patient did not have improvement when he was given Narcan during the acute event. Continue weaning as tolerated. Patient is down to FiO2 50 but PEEP remains at 10. Pulmonology following. Patient is on day 7 on the ventilator. (2) Feeding difficulties Is this a current diagnosis for this admission?: Yes Plan: Leslienet continues to have high residuals. Increase Reglan to 10 mg tid. Start Oxepa at 10 cc then gradually increased to go 35 cc/h as toelrated. Reduce normal saline to 50 cc/h. (3) COPD (chronic obstructive pulmonary disease) Qualifiers: Chronic bronchitis type: unspecified Is this a current diagnosis for this admission?: Yes Plan: Stable. Continue breathing treatments. (4) DVT of axillary vein, chronic Is this a current diagnosis for this admission?: Yes Plan: Continue Xarelto. (5) Tracheobronchitis Is this a current diagnosis for this admission?: Yes Plan: Sputum culture grew MSSA. On Levaquin. Also started on inhaled tobramycin per pulmonology. (6) Cellulitis of both lower extremities Is this a current diagnosis for this admission?: Yes Plan: Completed antibiotic therapy on the floor before patient went into respiratory failure. - Time Time Spent with patient: 25-34 minutes - A critical time of 25 mins was spent face to face with patient. Total Critical Time (Minutes): 20
[2018-06-27] MEDS: PROMETHAZINE HCL INJ 25 MG/1 ML VIAL IV PRN (13:21)
[2018-06-27 19:00] LABS: ARTERIAL BLOOD BASE EXCESS 2.1 mmol/L; ARTERIAL BLOOD FIO2 30%; ARTERIAL BLOOD H2CO3 1.12 mmol/L (1.05-1.35); ARTERIAL BLOOD HCO3 25.8 mmol/L (20-26); ARTERIAL BLOOD O2 SATURATION 93.3 % (94-98); ARTERIAL BLOOD PCO2 37.1 mmHg (35-45); ARTERIAL BLOOD PH 7.46 (7.35-7.45); ARTERIAL BLOOD PO2 62.8 mmHg (80-100); ARTERIAL BLOOD TOTAL CO2 26.9 mmol/L (23-27)
[2018-06-27] MEDS: MELATONIN 5 MG TABLET PO SCH (22:11)
[2018-06-27] MEDS: MONTELUKAST SODIUM 10 MG TABLET NG SCH (22:12)
[2018-06-27] MEDS: TRAZODONE HCL 50 MG TABLET NG SCH (22:12)
[2018-06-27] MEDS: ATORVASTATIN CALCIUM 40 MG TABLET NG SCH (22:12)
[2018-06-28] MEDS: IPRATROPIUM/ALBUTEROL 0.5-2.5 MG/3 ML AMPUL NEB SCH ×4 (02:17→19:55)
[2018-06-28] MEDS: METHYLPREDNISOLONE INJ 125 MG/2 ML SDV IV SCH ×3 (04:02→20:36)
[2018-06-28] MEDS: NORMAL SALINE 1000 ML 1,000 ML IV PRN ×2 (04:03→21:28)
[2018-06-28] MEDS: METOCLOPRAMIDE HCL INJ/PF 10 MG/2 ML SDV IV SCH ×3 (05:02→21:27)
[2018-06-28] MEDS: PREGABALIN 75 MG CAPSULE NG SCH (05:02)
[2018-06-28] MEDS: FLUTICASONE/SALMETEROL DISKUS 250-50 MCG/DOSE IH SCH ×2 (05:02→19:21)
[2018-06-28 05:39] LABS: ARTERIAL BLOOD BASE EXCESS 1.9 mmol/L; ARTERIAL BLOOD H2CO3 1.13 mmol/L (1.05-1.35); ARTERIAL BLOOD HCO3 25.8 mmol/L (20-26); ARTERIAL BLOOD O2 SATURATION 94.3 % (94-98); ARTERIAL BLOOD PCO2 37.7 mmHg (35-45); ARTERIAL BLOOD PH 7.45 (7.35-7.45); ARTERIAL BLOOD PO2 67.2 mmHg (80-100); ARTERIAL BLOOD TOTAL CO2 26.9 mmol/L (23-27)
[2018-06-28 05:40] LABS: HEMATOCRIT 35.8 % (37.9-51.0); HEMOGLOBIN 11.9 g/dL (13.5-17.0); MEAN CORPUSCULAR HEMOGLOBIN 29.2 pg (27.0-33.4); MEAN CORPUSCULAR HGB CONC 33.3 g/dL (32.0-36.0); MEAN CORPUSCULAR VOLUME 88 fl (80-97); PLATELET COUNT 302 10^3/uL (150-450); RED BLOOD COUNT 4.08 10^6/uL (4.35-5.55); RED CELL DISTRIBUTION WIDTH 18.4 % (11.5-14.0); WHITE BLOOD COUNT 12.2 10^3/uL (4.0-10.5)
[2018-06-28 05:45] LABS: ARTERIAL BLOOD FIO2 30%
[2018-06-28 06:03] LABS: ALANINE AMINOTRANSFERASE 27 U/L (21-72); ALBUMIN 2.7 g/dL (3.5-5.0); ALKALINE PHOSPHATASE 44 U/L (38-126); ANION GAP 9 (5-19); ASPARTATE AMINO TRANSFERASE 17 U/L (17-59); BILIRUBIN,DIRECT 0.3 mg/dL (0.0-0.4); BILIRUBIN,TOTAL 0.6 mg/dL (0.2-1.3); BLOOD UREA NITROGEN 27 mg/dL (7-20); CALCIUM 8.7 mg/dL (8.4-10.2); CARBON DIOXIDE 26 mmol/L (22-30); CHLORIDE 110 mmol/L (98-107); GLUCOSE 158 mg/dL (75-110); POTASSIUM 3.7 mmol/L (3.6-5.0); TOTAL PROTEIN 6.4 g/dL (6.3-8.2)
[2018-06-28 06:12] LABS: ABSOLUTE LYMPHOCYTES# (MANUAL) 1.1 10^3/uL (0.5-4.7); ABSOLUTE MONOCYTES # (MANUAL) 0.9 10^3/uL (0.1-1.4); ABSOLUTE NEUTROPHILS# (MANUAL) 10.2 10^3/uL (1.7-8.2); BASOPHILS % (MANUAL) 0 % (0-2); EOSINOPHILS % (MANUAL) 0 % (0-6); LYMPHOCYTES % (MANUAL) 9 % (13-45); METAMYELOCYTES % (MANUAL) 1 % (0); MONOCYTES % (MANUAL) 7 % (3-13); SEGMENTED NEUTROPHILS % (MAN) 83 % (42-78); TOTAL CELLS COUNTED 100
[2018-06-28 06:15] LABS: ANISOCYTOSIS 2+; OVALOCYTES 1+; POIKILOCYTOSIS 2+; SCHISTOCYTES 1+; TARGET CELLS 1+
[2018-06-28 06:16] LABS: PLATELET COMMENT ADEQUATE; PLATELET LARGE PRESENT
--- NOTE | 2018-06-28 06:31 | RADIOLOGY REPORT (SQ) ---
EXAM DESCRIPTION: XR CHEST 1 VIEW COMPLETED DATE/TME: 06/28/2018 06:00 CLINICAL HISTORY: 63 years Male, resp[ failure COMPARISON: One day prior. NUMBER OF VIEWS/TECHNIQUE: 1/AP FINDINGS: Mild interstitial markings, small bandlike opacity of the right lung base, small left lower retrocardiac opacity, small left basilar opacity-effusion, endotracheal tube tip is up to 7.0 cm from the jose, adequate appearing enteric tube obscured distally, left upper abdominal clips, left subclavian PICC tip at the SVC. No pneumothorax. Stable bony thorax. IMPRESSION: No significant change.
[2018-06-28] MEDS: TOBRAMYCIN SULFATE NEB 40 MG/ML 30 ML NEB SCH ×2 (09:02→19:55)
[2018-06-28] MEDS: ACETYLCYSTEINE 20% SOLN 800 MG/4 ML VIAL.NEB NEB SCH ×2 (09:02→19:55)
[2018-06-28] MEDS ORDERED: BISACODYL 10 MG SUPP.RECT PR PRN (09:03)
[2018-06-28] MEDS: LACTOBACILLUS ACIDOPHILUS 250 MG TAB NG SCH (09:57)
[2018-06-28] MEDS: FUROSEMIDE 20 MG TABLET NG SCH (09:57)
[2018-06-28] MEDS: LORATADINE 10 MG TABLET NG SCH (09:58)
[2018-06-28] MEDS: FLUTICASONE NASAL SPRAY 50 MCG/SPRY 120 SPRAY/16 GM NASL SCH ×2 (09:58→21:40)
[2018-06-28] MEDS: DOCUSATE SODIUM 100 MG CAPSULE PO SCH (09:58)
[2018-06-28] MEDS: FOLIC ACID 1 MG TABLET NG SCH (09:58)
[2018-06-28] MEDS: MULTIVITAMIN TABLET PO SCH (09:58)
[2018-06-28] MEDS: CYANOCOBALAMIN (VITAMIN B-12) 1,000 MCG TABLET NG SCH (09:59)
[2018-06-28] MEDS: MULTIVIT-STRESS FORMULA/ZINC TABLET NG SCH (09:59)
[2018-06-28] MEDS: RIVAROXABAN 10 MG TABLET NG SCH (09:59)
[2018-06-28] MEDS: CHOLECALCIFEROL (D3) 1,000 UNIT TABLET NG SCH (09:59)
[2018-06-28] MEDS: NORMAL SALINE 10 ML SDV (SCHEDULED) IV SCH ×2 (10:00→21:40)
[2018-06-28] MEDS: LEVOFLOXACIN 750 MG/D5W RTU 750 MG/150 ML RTUPB IV SCH (10:00)
[2018-06-28] MEDS: PANTOPRAZOLE SODIUM 40 MG VIAL IV SCH (10:01)
[2018-06-28] MEDS: PROMETHAZINE HCL INJ 25 MG/1 ML VIAL IV PRN ×2 (10:02→15:02)
[2018-06-28] MEDS: MIDAZOLAM 2 MG/2 ML INJ IV PRN ×2 (10:02→15:02)
--- NOTE | 2018-06-28 10:13 | RADIOLOGY REPORT (SQ) ---
EXAM DESCRIPTION: KUB/ABDOMEN (SINGLE VIEW) COMPLETED DATE/TIME: 06/28/2018 9:40 am REASON FOR STUDY: no bm nausea,vomiting COMPARISON: CT abdomen pelvis 08/22/2017 KUB 06/29/2017 NUMBER OF VIEWS: One view. TECHNIQUE: Supine radiographic image of the abdomen acquired. LIMITATIONS: None. FINDINGS: BOWEL GAS PATTERN: Moderate stool in the colon, otherwise unremarkable bowel gas pattern. No dilated loops. CALCIFICATIONS: Calcified pelvic phleboliths are present. SOFT TISSUES: No gross mass or suggestion of organomegaly. HARDWARE: Nasogastric tube tip and side port in the stomach. Inferior vena cava filter. Lower lumba r fusion hardware. Left iliac artery or vein stent. Atkins catheter in the bladder. Laparoscopic ve ntral hernia tacks. BONES: No acute fracture. No worrisome bone lesions. OTHER: Bibasilar atelectasis. IMPRESSION: Nasogastric tube tip and side port in the stomach. Stomach decompressed. Moderate stool in the colon. Otherwise unremarkable bowel gas pattern. TECHNICAL DOCUMENTATION: JOB ID: [id number] [employer]- All Rights Reserved Reading location - IP/workstation name: [email or web address]
[2018-06-28] MEDS: ENOXAPARIN SODIUM INJ 40 MG/0.4 ML DISP.SYRIN SUBCUT SCH ×2 (15:05→21:27)
[2018-06-28] MEDS ORDERED: PROPOFOL 1,000 MG/100 ML INFUS..BTL IV ONE (17:30)
--- NOTE | 2018-06-28 17:50 | PDOC PROGRESS REPORT ---
Subjective Progress Note for:: 06/28/18 Subjective:: Patient was transferred to the ICU because of acute respiratory failure. He is only on propofol. Patient and is able to follow commands. He continues to have high residuals on the NG. Tube feeding was initiated last night. However and patient was repositioned patient had episode of aspiration and there is note of significant residuals from the tube feeds. Reason For Visit: LOWER EXTREMITIES CELLULITIS Physical Exam Vital Signs: Temp Pulse Resp BP Pulse Ox 98.2 F 84 10 L 144/74 H 97 06/28/18 14:00 06/28/18 14:15 06/28/18 14:15 06/28/18 13:42 06/28/18 14:15 Intake & Output 06/27/18 06/28/18 06/29/18 06:59 06:59 06:59 Intake Total 1271 2088 Output Total 1470 3300 1150 Balance -199 -1212 -1150 Weight 294 lb 15.656 oz 290 lb 5.581 oz General appearance: PRESENT: no acute distress, well-developed, well-nourished Eye exam: PRESENT: conjunctiva pink, EOMI, PERRLA. ABSENT: scleral icterus Neck exam: ABSENT: carotid bruit, JVD, lymphadenopathy, thyromegaly Respiratory exam: PRESENT: clear to auscultation lui. ABSENT: rales, rhonchi, wheezes Cardiovascular exam: PRESENT: RRR. ABSENT: diastolic murmur, rubs, systolic murmur GI/Abdominal exam: PRESENT: normal bowel sounds, soft. ABSENT: distended, guarding, mass, organolmegaly, rebound, tenderness Rectal exam: PRESENT: deferred Neurological exam: PRESENT: awake, other - Patient is sedated but arousable, he tracks and is able to follow simple commands. Results Laboratory Results: 06/28/18 05:10 06/28/18 05:10 06/27/18 06/28/18 06/28/18 17:40 05:10 05:10 WBC 12.2 H RBC 4.08 L Hgb 11.9 L Hct 35.8 L MCV 88 MCH 29.2 MCHC 33.3 RDW 18.4 H Plt Count 302 Seg Neutrophils % Not Reportable Lymphocytes % Not Reportable Monocytes % Not Reportable Eosinophils % Not Reportable Basophils % Not Reportable Absolute Neutrophils Not Reportable Absolute Lymphocytes Not Reportable Absolute Monocytes Not Reportable Absolute Eosinophils Not Reportable Absolute Basophils Not Reportable Carbonic Acid 1.12 1.13 HCO3/H2CO3 Ratio 23:1 22:1 ABG pH 7.46 H 7.45 ABG pCO2 37.1 37.7 ABG pO2 62.8 L 67.2 L ABG HCO3 25.8 25.8 ABG O2 Saturation 93.3 L 94.3 ABG Base Excess 2.1 1.9 FiO2 30% 30% Sodium Potassium Chloride Carbon Dioxide Anion Gap BUN Creatinine Est GFR ( Amer) Est GFR (Non-Af Amer) Glucose Calcium Magnesium Total Bilirubin AST ALT Alkaline Phosphatase Total Protein Albumin 06/28/18 05:10 WBC RBC Hgb Hct MCV MCH MCHC RDW Plt Count Seg Neutrophils % Lymphocytes % Monocytes % Eosinophils % Basophils % Absolute Neutrophils Absolute Lymphocytes Absolute Monocytes Absolute Eosinophils Absolute Basophils Carbonic Acid HCO3/H2CO3 Ratio ABG pH ABG pCO2 ABG pO2 ABG HCO3 ABG O2 Saturation ABG Base Excess FiO2 Sodium 145.0 Potassium 3.7 Chloride 110 H Carbon Dioxide 26 Anion Gap 9 BUN 27 H Creatinine 0.68 Est GFR ( Amer) > 60 Est GFR (Non-Af Amer) > 60 Glucose 158 H Calcium 8.7 Magnesium 2.1 Total Bilirubin 0.6 AST 17 ALT 27 Alkaline Phosphatase 44 Total Protein 6.4 Albumin 2.7 L 06/20/18 06/20/18 06/20/18 05:45 05:45 05:45 Creatine Kinase 73 CK-MB (CK-2) 0.62 Troponin I 0.014 NT-Pro-B Natriuret Pep 64 06/20/18 06/20/18 06/20/18 10:30 10:30 10:30 Creatine Kinase 97 Cancelled CK-MB (CK-2) 1.25 Troponin I 0.154 NT-Pro-B Natriuret Pep 06/20/18 06/20/18 06/20/18 10:30 16:02 16:02 Creatine Kinase 78 CK-MB (CK-2) Cancelled 1.12 Troponin I Cancelled 0.132 NT-Pro-B Natriuret Pep 06/20/18 06/20/18 22:15 22:15 Creatine Kinase 63 CK-MB (CK-2) 1.00 Troponin I 0.101 NT-Pro-B Natriuret Pep Impressions: Guidance Fluoroscopy 06/11/18 00:00 IMPRESSION: SUCCESSFUL PLACEMENT OF A 5 FR DUAL LUMEN 13 9 CM PICC IN THE LEFT BASILIC VEIN. Interventional Vascular Procedure 06/11/18 00:00 IMPRESSION: SUCCESSFUL PLACEMENT OF A 5 FR DUAL LUMEN 13 9 CM PICC IN THE LEFT BASILIC VEIN. PICC Line Insertion 06/11/18 00:00 IMPRESSION: SUCCESSFUL PLACEMENT OF A 5 FR DUAL LUMEN 13 9 CM PICC IN THE LEFT BASILIC VEIN. Chest/Abdomen CTA 06/20/18 09:17 IMPRESSION: No CT angio evidence of acute pulmonary emboli. PICC line, endotracheal tube, nasogastric tube in good positioning. Bandlike airspace disease in the dependent portions of both lungs, likely atelectasis. KUB X-Ray 06/28/18 00:00 IMPRESSION: Nasogastric tube tip and side port in the stomach. Stomach decompressed. Moderate stool in the colon. Otherwise unremarkable bowel gas pattern. Chest X-Ray 06/28/18 06:00 IMPRESSION: No significant change. Assessment & Plan - Diagnosis (1) Acute hypercapnic respiratory failure Is this a current diagnosis for this admission?: Yes Plan: Patient with acute hypercapnic respiratory failure in the floor. Although exact etiology is not clear, medication effect from opiates is a possible cause. Noted that patient did not have improvement when he was given Narcan during the acute event. Pulmonology following for ventilator weaning. Patient is on day 8 on the ventilator. (2) Feeding difficulties Is this a current diagnosis for this admission?: Yes Plan: Tube feed held due to persistent high residuals and episode of aspiration last night. (3) Aspiration into airway Is this a current diagnosis for this admission?: Yes Plan: Patient had aspiration of tube feeding contents when he was repositioned last night. We will continue to monitor for clinical signs of aspiration pneumonia. (4) COPD (chronic obstructive pulmonary disease) Qualifiers: Chronic bronchitis type: unspecified Is this a current diagnosis for this admission?: Yes Plan: Stable. Continue breathing treatments. (5) DVT of axillary vein, chronic Is this a current diagnosis for this admission?: Yes Plan: Continue Xarelto. (6) Tracheobronchitis Is this a current diagnosis for this admission?: Yes Plan: Sputum culture grew MSSA. On Levaquin. Also started on inhaled tobramycin per pulmonology. (7) Cellulitis of both lower extremities Is this a current diagnosis for this admission?: Yes Plan: Completed antibiotic therapy on the floor before patient went into respiratory failure. - Time Time Spent with patient: 15-24 minutes
[2018-06-28] MEDS: PROPOFOL 1,000 MG/100 ML INFUS..BTL IV PRN ×2 (18:00→20:35)
--- NOTE | 2018-06-28 22:45 | RADIOLOGY REPORT (SQ) ---
EXAM DESCRIPTION: CT ABD/PELVIS NO ORAL OR IV COMPLETED DATE/TIME: 06/28/2018 6:56 pm REASON FOR STUDY: vomiting and constipation COMPARISON: 06/29/2017 TECHNIQUE: CT scan of the abdomen and pelvis performed without intravenous or oral contrast. Images reviewed with lung, soft tissue, and bone windows. Reconstructed coronal and sagittal MPR images revi ewed. All images stored on PACS. All CT scanners at this facility use dose modulation, iterative reconstruction, and/or weight based d osing when appropriate to reduce radiation dose to as low as reasonably achievable (ALARA). [facility]: Dose Right [facility]: CareDose [facility]: Dose Right [facility]: Teradose 4D [facility]: [employer] RADIATION DOSE: CT Rad equipment meets quality standard of care and radiation dose reduction techniq ues were employed. CTDIvol: 14.4 mGy. DLP: 808 mGy-cm.mGy. LIMITATIONS: Limited by body habitus, lack of contrast, and hardware in the spine. FINDINGS: LOWER CHEST: Small pleural effusions. Airspace disease in the lower lobes. NON-CONTRASTED LIVER, SPLEEN, ADRENALS: Liver is unremarkable. 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 Adrenal g lands are normal. PANCREAS: No masses. No peripancreatic inflammatory changes. GALLBLADDER: A couple tiny gallstones are present. RIGHT KIDNEY AND URETER: No suspicious masses. Assessment limited by lack of IV contrast. No signif icant calcifications. No hydronephrosis or hydroureter. LEFT KIDNEY AND URETER: No suspicious masses. Assessment limited by lack of IV contrast. No signifi cant calcifications. No hydronephrosis or hydroureter. AORTA AND RETROPERITONEUM: No aneurysm. No retroperitoneal masses or adenopathy. BOWEL AND PERITONEAL CAVITY: Sigmoid diverticulosis. No acute inflammatory changes. APPENDIX: Not identified. PELVIS, BLADDER, AND ABDOMINAL WALL:Ventral hernia repair. Atkins catheter is in the bladder so the b ladder cannot be evaluated. No pelvic masses or fluid collections. BONES: Rods from L3 S1. No osseous lesions are appreciated. OTHER: An NG tube is present. IMPRESSION: Small pleural effusions. Bilateral airspace disease. Atelectasis versus pneumonia. Cholelithiasis. Diverticulosis. COMMENT: Quality ID # [id number]: Final reports with documentation of one or more dose reduction techniques (e.g., Automated exposure control, adjustment of the mA and/or kV according to patient size, use of iterative reconstruction technique) TECHNICAL DOCUMENTATION: JOB ID: [id number] [employer]- All Rights Reserved Reading location - IP/workstation name: [email or web address]
--- NOTE | 2018-06-28 22:49 | RADIOLOGY REPORT (SQ) ---
EXAM DESCRIPTION: CT HEAD WITHOUT COMPLETED DATE/TIME: 06/28/2018 6:56 pm REASON FOR STUDY: resp. failure, change in mental status COMPARISON: 03/31/2017 TECHNIQUE: Axial images acquired through the brain without intravenous contrast. Images reviewed wi th bone, brain and subdural windows. Additional sagittal and coronal reconstructions were generated. Images stored on PACS. All CT scanners at this facility use dose modulation, iterative reconstruction, and/or weight based d osing when appropriate to reduce radiation dose to as low as reasonably achievable (ALARA). [facility]: Dose Right [facility]: CareDose [facility]: Dose Right [facility]: Teradose 4D [facility]: [employer] RADIATION DOSE: CT Rad equipment meets quality standard of care and radiation dose reduction techniq ues were employed. CTDIvol: 55.2 mGy. DLP: 1029 mGy-cm. mGy. LIMITATIONS: None. FINDINGS: VENTRICLES: Normal size and contour. CEREBRUM: No masses. No hemorrhage. No midline shift. No evidence for acute infarction. Normal gra y/white matter differentiation. No areas of low density in the white matter. CEREBELLUM: No masses. No hemorrhage. No alteration of density. No evidence for acute infarction. EXTRAAXIAL SPACES: No fluid collections. No masses. ORBITS AND GLOBE: No intra- or extraconal masses. Normal contour of globe without masses. CALVARIUM: No fracture. PARANASAL SINUSES: No fluid or mucosal thickening. SOFT TISSUES: No mass or hematoma. OTHER: No other significant finding. IMPRESSION: NORMAL BRAIN CT WITHOUT CONTRAST. EVIDENCE OF ACUTE STROKE: NO. COMMENT: Quality ID # [id number]: Final reports with documentation of one or more dose reduction techniques (e.g., Automated exposure control, adjustment of the mA and/or kV according to patient size, use of iterative reconstruction technique) TECHNICAL DOCUMENTATION: JOB ID: [id number] [employer]- All Rights Reserved Reading location - IP/workstation name: [email or web address]
[2018-06-29] MEDS: PROPOFOL 1,000 MG/100 ML INFUS..BTL IV PRN ×6 (01:05→22:49)
[2018-06-29] MEDS: IPRATROPIUM/ALBUTEROL 0.5-2.5 MG/3 ML AMPUL NEB SCH ×4 (01:56→21:03)
[2018-06-29] MEDS: METHYLPREDNISOLONE INJ 125 MG/2 ML SDV IV SCH ×3 (03:45→18:29)
[2018-06-29 05:32] LABS: ARTERIAL BLOOD BASE EXCESS 3.2 mmol/L; ARTERIAL BLOOD H2CO3 1.16 mmol/L (1.05-1.35); ARTERIAL BLOOD O2 SATURATION 96.1 % (94-98); ARTERIAL BLOOD PCO2 38.7 mmHg (35-45); ARTERIAL BLOOD PH 7.46 (7.35-7.45); ARTERIAL BLOOD PO2 77.3 mmHg (80-100); ARTERIAL BLOOD TOTAL CO2 28.2 mmol/L (23-27)
[2018-06-29 05:33] LABS: HEMATOCRIT 36.4 % (37.9-51.0); HEMOGLOBIN 11.9 g/dL (13.5-17.0); MEAN CORPUSCULAR HEMOGLOBIN 28.7 pg (27.0-33.4); MEAN CORPUSCULAR HGB CONC 32.8 g/dL (32.0-36.0); MEAN CORPUSCULAR VOLUME 88 fl (80-97); PLATELET COUNT 294 10^3/uL (150-450); RED BLOOD COUNT 4.15 10^6/uL (4.35-5.55); WHITE BLOOD COUNT 13.7 10^3/uL (4.0-10.5)
[2018-06-29 05:35] LABS: ARTERIAL BLOOD FIO2 30%
[2018-06-29] MEDS: METOCLOPRAMIDE HCL INJ/PF 10 MG/2 ML SDV IV SCH (05:37)
[2018-06-29] MEDS: FLUTICASONE/SALMETEROL DISKUS 250-50 MCG/DOSE IH SCH ×2 (05:38→18:22)
[2018-06-29 05:49] LABS: ANION GAP 7 (5-19); BLOOD UREA NITROGEN 25 mg/dL (7-20); CALCIUM 8.8 mg/dL (8.4-10.2); CARBON DIOXIDE 27 mmol/L (22-30); CHLORIDE 111 mmol/L (98-107); GLUCOSE 153 mg/dL (75-110); POTASSIUM 3.6 mmol/L (3.6-5.0); SODIUM 145.4 mmol/L (137-145)
[2018-06-29 06:28] LABS: ABSOLUTE LYMPHOCYTES# (MANUAL) 0.7 10^3/uL (0.5-4.7); ABSOLUTE MONOCYTES # (MANUAL) 0.8 10^3/uL (0.1-1.4); ABSOLUTE NEUTROPHILS# (MANUAL) 12.2 10^3/uL (1.7-8.2); BAND NEUTROPHILS % (MANUAL) 2 % (3-5); BASOPHILS % (MANUAL) 0 % (0-2); EOSINOPHILS % (MANUAL) 0 % (0-6); LYMPHOCYTES % (MANUAL) 5 % (13-45); MONOCYTES % (MANUAL) 6 % (3-13); SEGMENTED NEUTROPHILS % (MAN) 87 % (42-78); TOTAL CELLS COUNTED 100
[2018-06-29 06:29] LABS: ANISOCYTOSIS 1+; HYPOCHROMASIA 1+; PLATELET COMMENT ADEQUATE; PLATELET LARGE PRESENT
[2018-06-29 06:30] LABS: PLATELET GIANT PRESENT
--- NOTE | 2018-06-29 07:16 | RADIOLOGY REPORT (SQ) ---
EXAM DESCRIPTION: CHEST SINGLE VIEW COMPLETED DATE/TIME: 06/29/2018 6:55 am REASON FOR STUDY: resp failure COMPARISON: CT angio chest 06/20/2018 AP chest 06/21/2018, 06/27/2018, 06/28/2018 EXAM PARAMETERS: NUMBER OF VIEWS: One view. TECHNIQUE: Single frontal radiographic view of the chest acquired. RADIATION DOSE: NA LIMITATIONS: None. FINDINGS: LUNGS AND PLEURA: Minimal bibasilar atelectasis. No fluffy alveolar infiltrates worrisome for edema or pneumonia. No gross pleural effusion or pneumothorax. MEDIASTINUM AND HILAR STRUCTURES: No masses. Contour normal. HEART AND VASCULAR STRUCTURES: No cardiomegaly BONES: No acute findings. HARDWARE: Endotracheal tube tip 7 cm above the jose. Left PICC line tip superior vena cava. Nasog astric tube tip and side port in the stomach. OTHER: No other significant finding. IMPRESSION: No change from yesterday TECHNICAL DOCUMENTATION: JOB ID: [id number] [employer]- All Rights Reserved Reading location - IP/workstation name: [email or web address]
[2018-06-29] MEDS: ACETYLCYSTEINE 20% SOLN 800 MG/4 ML VIAL.NEB NEB SCH ×2 (08:11→21:01)
[2018-06-29] MEDS: TOBRAMYCIN SULFATE NEB 40 MG/ML 30 ML NEB SCH ×2 (08:11→21:02)
[2018-06-29] MEDS ORDERED: DEXAMETHASONE SOD PHOSPHATE INJ 4 MG/1 ML VIAL IV ONE (09:30)
[2018-06-29] MEDS: LEVOFLOXACIN 750 MG/D5W RTU 750 MG/150 ML RTUPB IV SCH (11:00)
--- NOTE | 2018-06-29 11:10 | PDOC PROGRESS REPORT ---
Subjective Progress Note for:: 06/29/18 Subjective:: Patient was transferred to the ICU because of acute respiratory failure. No acute event overnight. Remained intubated. Patient tolerated CPAP trials well. No fever or chills. He had slightly dark secretions from the NG. He is awake and is able to follow commands. Reason For Visit: LOWER EXTREMITIES CELLULITIS Physical Exam Vital Signs: Temp Pulse Resp BP Pulse Ox 98.1 F 62 13 149/73 H 96 06/29/18 05:03 06/29/18 01:56 06/29/18 06:00 06/29/18 05:43 06/29/18 06:00 Intake & Output 06/28/18 06/29/18 06/30/18 06:59 06:59 06:59 Intake Total 2088 1095 Output Total 3300 2635 Balance -1212 -1540 Weight 290 lb 5.581 oz 287 lb 11.252 oz General appearance: PRESENT: no acute distress, well-developed, well-nourished Head exam: PRESENT: atraumatic, normocephalic Eye exam: PRESENT: conjunctiva pink, EOMI, PERRLA. ABSENT: scleral icterus Neck exam: ABSENT: carotid bruit, JVD, lymphadenopathy, thyromegaly Respiratory exam: PRESENT: rhonchi - Occasional rhonchi, no crackles or wheezing Cardiovascular exam: PRESENT: RRR. ABSENT: diastolic murmur, rubs, systolic murmur GI/Abdominal exam: PRESENT: normal bowel sounds, soft. ABSENT: distended, guarding, mass, organolmegaly, rebound, tenderness Rectal exam: PRESENT: deferred Neurological exam: PRESENT: other - Patient remained intubated but arousable, he tracks and is able to follow simple commands. Results Laboratory Results: 06/29/18 05:25 06/29/18 05:25 06/29/18 06/29/18 06/29/18 05:25 05:25 05:25 WBC 13.7 H RBC 4.15 L Hgb 11.9 L Hct 36.4 L MCV 88 MCH 28.7 MCHC 32.8 RDW 18.0 H Plt Count 294 Seg Neutrophils % Not Reportable Lymphocytes % Not Reportable Monocytes % Not Reportable Eosinophils % Not Reportable Basophils % Not Reportable Absolute Neutrophils Not Reportable Absolute Lymphocytes Not Reportable Absolute Monocytes Not Reportable Absolute Eosinophils Not Reportable Absolute Basophils Not Reportable Carbonic Acid 1.16 HCO3/H2CO3 Ratio 23:1 ABG pH 7.46 H ABG pCO2 38.7 ABG pO2 77.3 L ABG HCO3 27.0 H ABG O2 Saturation 96.1 ABG Base Excess 3.2 FiO2 30% Sodium 145.4 H Potassium 3.6 Chloride 111 H Carbon Dioxide 27 Anion Gap 7 BUN 25 H Creatinine 0.60 Est GFR ( Amer) > 60 Est GFR (Non-Af Amer) > 60 Glucose 153 H Calcium 8.8 Magnesium 2.1 06/20/18 06/20/18 06/20/18 05:45 05:45 05:45 Creatine Kinase 73 CK-MB (CK-2) 0.62 Troponin I 0.014 NT-Pro-B Natriuret Pep 64 06/20/18 06/20/18 06/20/18 10:30 10:30 10:30 Creatine Kinase 97 Cancelled CK-MB (CK-2) 1.25 Troponin I 0.154 NT-Pro-B Natriuret Pep 06/20/18 06/20/18 06/20/18 10:30 16:02 16:02 Creatine Kinase 78 CK-MB (CK-2) Cancelled 1.12 Troponin I Cancelled 0.132 NT-Pro-B Natriuret Pep 06/20/18 06/20/18 22:15 22:15 Creatine Kinase 63 CK-MB (CK-2) 1.00 Troponin I 0.101 NT-Pro-B Natriuret Pep Impressions: Guidance Fluoroscopy 06/11/18 00:00 IMPRESSION: SUCCESSFUL PLACEMENT OF A 5 FR DUAL LUMEN 13 9 CM PICC IN THE LEFT BASILIC VEIN. Interventional Vascular Procedure 06/11/18 00:00 IMPRESSION: SUCCESSFUL PLACEMENT OF A 5 FR DUAL LUMEN 13 9 CM PICC IN THE LEFT BASILIC VEIN. PICC Line Insertion 06/11/18 00:00 IMPRESSION: SUCCESSFUL PLACEMENT OF A 5 FR DUAL LUMEN 13 9 CM PICC IN THE LEFT BASILIC VEIN. Chest/Abdomen CTA 06/20/18 09:17 IMPRESSION: No CT angio evidence of acute pulmonary emboli. PICC line, endotracheal tube, nasogastric tube in good positioning. Bandlike airspace disease in the dependent portions of both lungs, likely atelectasis. Abdomen/Pelvis CT 06/28/18 00:00 IMPRESSION: Small pleural effusions. Bilateral airspace disease. Atelectasis versus pneumonia. Cholelithiasis. Diverticulosis. Head CT 06/28/18 00:00 IMPRESSION: NORMAL BRAIN CT WITHOUT CONTRAST. EVIDENCE OF ACUTE STROKE: NO. KUB X-Ray 06/28/18 00:00 IMPRESSION: Nasogastric tube tip and side port in the stomach. Stomach decompressed. Moderate stool in the colon. Otherwise unremarkable bowel gas pattern. Chest X-Ray 06/29/18 06:00 IMPRESSION: No change from yesterday Assessment & Plan - Diagnosis (1) Acute hypercapnic respiratory failure Is this a current diagnosis for this admission?: Yes Plan: Patient with acute hypercapnic respiratory failure on the floor. Although exact etiology is not clear, medication effect from opiates is a possible cause. Noted that patient did not have improvement when he was given Narcan during the acute event. Patient did well on CPAP trials. Plan for extubation to BiPAP later today. Pulmonology following. (2) Feeding difficulties Is this a current diagnosis for this admission?: Yes Plan: Tube feed held due to persistent high residuals and episode of aspiration the other day. (3) Aspiration into airway Is this a current diagnosis for this admission?: Yes Plan: Patient had aspiration of tube feeding contents when he was repositioned the other night. No increasing secretions from the ED so far. We will continue to monitor for clinical signs of aspiration pneumonia. Chest x-ray today is unremarkable. (4) COPD (chronic obstructive pulmonary disease) Qualifiers: Chronic bronchitis type: unspecified Is this a current diagnosis for this admission?: Yes Plan: Stable. Continue breathing treatments. (5) DVT of axillary vein, chronic Is this a current diagnosis for this admission?: Yes Plan: On Xarelto. (6) Tracheobronchitis Is this a current diagnosis for this admission?: Yes Plan: Sputum culture grew MSSA. On Levaquin. Also on inhaled tobramycin per pulmonology. (7) Cellulitis of both lower extremities Is this a current diagnosis for this admission?: Yes Plan: Completed antibiotic therapy on the floor before patient went into respiratory failure. - Time Time Spent with patient: 15-24 minutes
--- NOTE | 2018-06-29 12:00 | EEG PRO FEE REPORT ---
EEG INTERPRETATION PAT[facility] NAME[id number] ROOM#: 601 ORDER#: [id number] DATE OF STUDY: 06/28/2018 : 1955 REFERRING MD: ARGENTINA ROCHA M.D. DIAGNOSIS: POSSIBLE ANOXIC BRAIN INJURY MEDICATIONS: Versed, Protonix, Phenergan, Duoneb, Dulcolax, Dextrose, Lovenox, Levaquin, Reglan, Solu-Medrol, Mucomyst. History: This is a 63-year-old male with a history of cardiac catheterization and stent placement, hypertension, COPD, sleep apnea, congestive heart failure, myocardial infarction, DVT, pulmonary embolus, multiple back surgeries, alcoholic cirrhosis, recurrent cellulitis in the lower limbs, with presumed anoxic brain injury. This EEG was requested for brain evaluation. EEG Interpretation: This EEG was recorded in the mainly drowsy state. The drowsy EEG is characterized by a poorly organized background without any definitive posterior dominant rhythm. The EEG was viewed at five microvolts. The background consists of a mix of mainly alpha activity with some theta and delta frequencies. The alpha is more prominent anteriorly. There is frontal intermittent rhythmic delta activity (FIRDA). There is reactivity to passive eye opening and closing. On video, the patient was seen to spontaneously flex his arms and move his head. The patient moved his arms and head in response to painful stimulation, withdrawing his arms to pain. There was an increase in alpha and muscle activity in response to painful stimulation. Photic stimulation resulted in no significant changes. The EKG showed a regular rhythm. There were no epileptiform abnormalities noted. EEG Classification: 1. Generalized background slowing. 2. Poor organization. 3. FIRDA. EEG Impression: This EEG is abnormal. It is consistent with diffuse cerebral dysfunction. There is reactivity in the EEG and observed in the patient spontaneously, to eye opening/closing, and painful stimulation. The patient was on Benzodiazepine medications. This EEG is not consistent with brain . INTERPRETING PHYSICIAN: SAMMIE MAYORGA M.D. /: RAY TT: [id number] ID: Unknown /: [id number] TD: [id number] JOB: [id number] cc:Victoria MONTOYA M.D. ALBERT CURSEEN, M.D. > [facility]
[2018-06-29] MEDS: FLUTICASONE NASAL SPRAY 50 MCG/SPRY 120 SPRAY/16 GM NASL SCH ×2 (13:02→21:23)
[2018-06-29] MEDS: NORMAL SALINE 10 ML SDV (SCHEDULED) IV SCH ×2 (13:05→21:24)
[2018-06-29] MEDS: SUCRALFATE SUSP 1 GM/10 ML UDCUP NG SCH ×2 (14:56→18:29)
[2018-06-29] MEDS: NORMAL SALINE 1000 ML 1,000 ML IV PRN (18:24)
[2018-06-29] MEDS: SCOPOLAMINE HYDROBROMIDE 1.5 MG PATCH.TD72 TD SCH (18:25)
[2018-06-29] MEDS: MIDAZOLAM 2 MG/2 ML INJ IV PRN (18:29)
[2018-06-29] MEDS: PANTOPRAZOLE SODIUM 40 MG VIAL IV SCH (18:29)
[2018-06-29 19:19] LABS: HEMATOCRIT 36.7 % (37.9-51.0); MEAN CORPUSCULAR HEMOGLOBIN 28.9 pg (27.0-33.4); MEAN CORPUSCULAR HGB CONC 32.7 g/dL (32.0-36.0); MEAN CORPUSCULAR VOLUME 88 fl (80-97); PLATELET COUNT 286 10^3/uL (150-450); RED BLOOD COUNT 4.16 10^6/uL (4.35-5.55); RED CELL DISTRIBUTION WIDTH 18.2 % (11.5-14.0); WHITE BLOOD COUNT 11.6 10^3/uL (4.0-10.5)
[2018-06-30] MEDS: SUCRALFATE SUSP 1 GM/10 ML UDCUP NG SCH ×4 (01:56→17:25)
[2018-06-30] MEDS: PROPOFOL 1,000 MG/100 ML INFUS..BTL IV PRN ×2 (01:56→05:10)
[2018-06-30] MEDS: IPRATROPIUM/ALBUTEROL 0.5-2.5 MG/3 ML AMPUL NEB SCH ×4 (02:50→20:53)
[2018-06-30] MEDS: FLUTICASONE/SALMETEROL DISKUS 250-50 MCG/DOSE IH SCH ×2 (05:10→17:25)
[2018-06-30] MEDS: METHYLPREDNISOLONE INJ 125 MG/2 ML SDV IV SCH ×2 (05:10→11:31)
[2018-06-30 05:17] LABS: ARTERIAL BLOOD BASE EXCESS 5.4 mmol/L; ARTERIAL BLOOD H2CO3 1.23 mmol/L (1.05-1.35); ARTERIAL BLOOD HCO3 29.4 mmol/L (20-26); ARTERIAL BLOOD O2 SATURATION 96.5 % (94-98); ARTERIAL BLOOD PCO2 40.7 mmHg (35-45); ARTERIAL BLOOD PH 7.48 (7.35-7.45); ARTERIAL BLOOD TOTAL CO2 30.7 mmol/L (23-27)
[2018-06-30 05:28] LABS: HEMATOCRIT 36.4 % (37.9-51.0); HEMOGLOBIN 12.1 g/dL (13.5-17.0); MEAN CORPUSCULAR HEMOGLOBIN 29.3 pg (27.0-33.4); MEAN CORPUSCULAR HGB CONC 33.3 g/dL (32.0-36.0); MEAN CORPUSCULAR VOLUME 88 fl (80-97); PLATELET COUNT 294 10^3/uL (150-450); RED BLOOD COUNT 4.14 10^6/uL (4.35-5.55); RED CELL DISTRIBUTION WIDTH 18.3 % (11.5-14.0); WHITE BLOOD COUNT 11.2 10^3/uL (4.0-10.5)
[2018-06-30 05:35] LABS: ANION GAP 9 (5-19); ARTERIAL BLOOD FIO2 30%; BLOOD UREA NITROGEN 27 mg/dL (7-20); CALCIUM 8.9 mg/dL (8.4-10.2); CARBON DIOXIDE 27 mmol/L (22-30); CHLORIDE 109 mmol/L (98-107); GLUCOSE 151 mg/dL (75-110); PHOSPHORUS 3.6 mg/dL (2.5-4.5); POTASSIUM 3.5 mmol/L (3.6-5.0); SODIUM 145.3 mmol/L (137-145)
[2018-06-30 06:50] LABS: ABSOLUTE LYMPHOCYTES# (MANUAL) 1.6 10^3/uL (0.5-4.7); ABSOLUTE MONOCYTES # (MANUAL) 1.8 10^3/uL (0.1-1.4); ABSOLUTE NEUTROPHILS# (MANUAL) 7.8 10^3/uL (1.7-8.2); BASOPHILS % (MANUAL) 0 % (0-2); EOSINOPHILS % (MANUAL) 0 % (0-6); LYMPHOCYTES % (MANUAL) 14 % (13-45); MONOCYTES % (MANUAL) 16 % (3-13); SEGMENTED NEUTROPHILS % (MAN) 70 % (42-78); TOTAL CELLS COUNTED 100
[2018-06-30 06:52] LABS: ANISOCYTOSIS 2+; OVALOCYTES SLIGHT; PLATELET COMMENT ADEQUATE; POLYCHROMASIA 1+; SCHISTOCYTES SLIGHT
[2018-06-30] MEDS: TOBRAMYCIN SULFATE NEB 40 MG/ML 30 ML NEB SCH ×2 (08:17→20:53)
--- NOTE | 2018-06-30 08:25 | RADIOLOGY REPORT (SQ) ---
EXAM DESCRIPTION: CHEST SINGLE VIEW COMPLETED DATE/TIME: 06/30/2018 7:16 am REASON FOR STUDY: resp failure COMPARISON: None. EXAM PARAMETERS: NUMBER OF VIEWS: One view. TECHNIQUE: Single frontal radiographic view of the chest acquired. RADIATION DOSE: NA LIMITATIONS: None. FINDINGS: LUNGS AND PLEURA: Unchanged small left basilar opacity with associated blunting of the lef t costophrenic angle. No focal right lung opacity. Right costophrenic angle is sharp. No pneumotho rax. MEDIASTINUM AND HILAR STRUCTURES: No masses. Contour normal. HEART AND VASCULAR STRUCTURES: Heart normal in size. Normal vasculature. BONES: No acute findings. HARDWARE: Unchanged positioning of endotracheal and left-sided PICC line. Distal enteric tube is dif ficult to visualize due to technique. OTHER: No other significant finding. IMPRESSION: No significant interval change. TECHNICAL DOCUMENTATION: JOB ID: [id number] [employer]- All Rights Reserved Reading location - IP/workstation name: [email or web address]
[2018-06-30] MEDS: ACETYLCYSTEINE 20% SOLN 800 MG/4 ML VIAL.NEB NEB SCH ×2 (08:29→20:54)
[2018-06-30] MEDS: NORMAL SALINE 10 ML SDV (SCHEDULED) IV SCH ×2 (09:05→22:02)
[2018-06-30] MEDS: FLUTICASONE NASAL SPRAY 50 MCG/SPRY 120 SPRAY/16 GM NASL SCH ×2 (09:05→22:01)
[2018-06-30] MEDS: LEVOFLOXACIN 750 MG/D5W RTU 750 MG/150 ML RTUPB IV SCH (09:12)
[2018-06-30] MEDS: PANTOPRAZOLE SODIUM 40 MG VIAL IV SCH ×2 (09:12→17:37)
[2018-06-30 12:21] LABS: HEMATOCRIT 35.1 % (37.9-51.0); HEMOGLOBIN 11.6 g/dL (13.5-17.0); MEAN CORPUSCULAR HEMOGLOBIN 29.2 pg (27.0-33.4); MEAN CORPUSCULAR HGB CONC 33.1 g/dL (32.0-36.0); MEAN CORPUSCULAR VOLUME 88 fl (80-97); PLATELET COUNT 286 10^3/uL (150-450); RED BLOOD COUNT 3.98 10^6/uL (4.35-5.55); RED CELL DISTRIBUTION WIDTH 18.1 % (11.5-14.0); WHITE BLOOD COUNT 13.4 10^3/uL (4.0-10.5)
--- NOTE | 2018-06-30 14:54 | PDOC PROGRESS REPORT ---
Subjective Progress Note for:: 06/30/18 Subjective:: Patient was transferred to the ICU because of acute respiratory failure. No acute event overnight. Remained intubated. Patient tolerated CPAP trials well. He is awake and is able to follow commands. Patient tolerating miniaml vent settings at 30% FiO2 and PEEP of 5. Ready for extubation today. Reason For Visit: LOWER EXTREMITIES CELLULITIS Physical Exam Vital Signs: Temp Pulse Resp BP Pulse Ox 97.5 F 64 31 H 141/70 H 90 L 06/30/18 10:00 06/30/18 13:43 06/30/18 14:00 06/30/18 13:33 06/30/18 14:00 Intake & Output 06/29/18 06/30/18 07/01/18 06:59 06:59 06:59 Intake Total 1095 1782 59 Output Total 2635 1435 1010 Balance -1540 347 -951 Weight 287 lb 11.252 oz 283 lb 11.759 oz General appearance: PRESENT: no acute distress Head exam: PRESENT: atraumatic Eye exam: PRESENT: conjunctival injection Respiratory exam: PRESENT: clear to auscultation lui Pulses: PRESENT: normal dorsalis pedis pul GI/Abdominal exam: PRESENT: normal bowel sounds, soft. ABSENT: distended, guarding, mass, organolmegaly, rebound, tenderness Rectal exam: PRESENT: deferred Neurological exam: PRESENT: alert - follows commands Results Laboratory Results: 06/30/18 11:58 06/30/18 05:00 06/29/18 06/30/18 06/30/18 18:40 05:00 05:00 WBC 11.6 H 11.2 H RBC 4.16 L 4.14 L Hgb 12.0 L 12.1 L Hct 36.7 L 36.4 L MCV 88 88 MCH 28.9 29.3 MCHC 32.7 33.3 RDW 18.2 H 18.3 H Plt Count 286 294 Seg Neutrophils % Not Reportable Lymphocytes % Not Reportable Monocytes % Not Reportable Eosinophils % Not Reportable Basophils % Not Reportable Absolute Neutrophils Not Reportable Absolute Lymphocytes Not Reportable Absolute Monocytes Not Reportable Absolute Eosinophils Not Reportable Absolute Basophils Not Reportable Carbonic Acid 1.23 HCO3/H2CO3 Ratio 23:1 ABG pH 7.48 H ABG pCO2 40.7 ABG pO2 80.0 ABG HCO3 29.4 H ABG O2 Saturation 96.5 ABG Base Excess 5.4 FiO2 30% Sodium Potassium Chloride Carbon Dioxide Anion Gap BUN Creatinine Est GFR ( Amer) Est GFR (Non-Af Amer) Glucose Calcium Phosphorus Magnesium 06/30/18 06/30/18 05:00 11:58 WBC 13.4 H RBC 3.98 L Hgb 11.6 L Hct 35.1 L MCV 88 MCH 29.2 MCHC 33.1 RDW 18.1 H Plt Count 286 Seg Neutrophils % Lymphocytes % Monocytes % Eosinophils % Basophils % Absolute Neutrophils Absolute Lymphocytes Absolute Monocytes Absolute Eosinophils Absolute Basophils Carbonic Acid HCO3/H2CO3 Ratio ABG pH ABG pCO2 ABG pO2 ABG HCO3 ABG O2 Saturation ABG Base Excess FiO2 Sodium 145.3 H Potassium 3.5 L Chloride 109 H Carbon Dioxide 27 Anion Gap 9 BUN 27 H Creatinine 0.60 Est GFR ( Amer) > 60 Est GFR (Non-Af Amer) > 60 Glucose 151 H Calcium 8.9 Phosphorus 3.6 Magnesium 2.1 06/20/18 06/20/18 06/20/18 05:45 05:45 05:45 Creatine Kinase 73 CK-MB (CK-2) 0.62 Troponin I 0.014 NT-Pro-B Natriuret Pep 64 06/20/18 06/20/18 06/20/18 10:30 10:30 10:30 Creatine Kinase 97 Cancelled CK-MB (CK-2) 1.25 Troponin I 0.154 NT-Pro-B Natriuret Pep 06/20/18 06/20/18 06/20/18 10:30 16:02 16:02 Creatine Kinase 78 CK-MB (CK-2) Cancelled 1.12 Troponin I Cancelled 0.132 NT-Pro-B Natriuret Pep 06/20/18 06/20/18 22:15 22:15 Creatine Kinase 63 CK-MB (CK-2) 1.00 Troponin I 0.101 NT-Pro-B Natriuret Pep Impressions: Guidance Fluoroscopy 06/11/18 00:00 IMPRESSION: SUCCESSFUL PLACEMENT OF A 5 FR DUAL LUMEN 13 9 CM PICC IN THE LEFT BASILIC VEIN. Interventional Vascular Procedure 06/11/18 00:00 IMPRESSION: SUCCESSFUL PLACEMENT OF A 5 FR DUAL LUMEN 13 9 CM PICC IN THE LEFT BASILIC VEIN. PICC Line Insertion 06/11/18 00:00 IMPRESSION: SUCCESSFUL PLACEMENT OF A 5 FR DUAL LUMEN 13 9 CM PICC IN THE LEFT BASILIC VEIN. Chest/Abdomen CTA 06/20/18 09:17 IMPRESSION: No CT angio evidence of acute pulmonary emboli. PICC line, endotracheal tube, nasogastric tube in good positioning. Bandlike airspace disease in the dependent portions of both lungs, likely atelectasis. Abdomen/Pelvis CT 06/28/18 00:00 IMPRESSION: Small pleural effusions. Bilateral airspace disease. Atelectasis versus pneumonia. Cholelithiasis. Diverticulosis. Head CT 06/28/18 00:00 IMPRESSION: NORMAL BRAIN CT WITHOUT CONTRAST. EVIDENCE OF ACUTE STROKE: NO. KUB X-Ray 06/28/18 00:00 IMPRESSION: Nasogastric tube tip and side port in the stomach. Stomach decompressed. Moderate stool in the colon. Otherwise unremarkable bowel gas pattern. Chest X-Ray 06/30/18 06:00 IMPRESSION: No significant interval change. Assessment & Plan - Diagnosis (1) Acute hypercapnic respiratory failure Is this a current diagnosis for this admission?: Yes Plan: Patient with acute hypercapnic respiratory failure on the floor. Although exact etiology is not clear, medication effect from opiates is a possible cause. Patient did well on CPAP trials. Doing well on 30% FiO2 and PEEP of 5. Will be extubated to BIPAP today. (2) Aspiration into airway Is this a current diagnosis for this admission?: Yes Plan: Patient had aspiration of tube feeding contents when he was repositioned the earlier this week. No increasing secretions from the ET so far. We will continue to monitor for clinical signs of aspiration pneumonia. Chest x-ray yesterday is unremarkable. (3) COPD (chronic obstructive pulmonary disease) Qualifiers: Chronic bronchitis type: unspecified Is this a current diagnosis for this admission?: Yes Plan: Stable. Continue breathing treatments. Decrease solumedrol to 40 mg daily. (4) DVT of axillary vein, chronic Is this a current diagnosis for this admission?: Yes Plan: Xarelto on hold. Still had recent dark NG secretions overnight. Will keep on SQ heparin for DVT prophylaxis for now. (5) Tracheobronchitis Is this a current diagnosis for this admission?: Yes Plan: Sputum culture grew MSSA. On Levaquin. Also on inhaled tobramycin per pulmonology. Plan to discontinue antibiotics in 1-2 days. (6) Cellulitis of both lower extremities Is this a current diagnosis for this admission?: Yes Plan: Completed antibiotic therapy on the floor before patient went into respiratory failure. - Time Time Spent with patient: 25-34 minutes
[2018-06-30] MEDS: NORMAL SALINE 1000 ML 1,000 ML IV PRN (15:51)
[2018-06-30] MEDS: HEPARIN SOD (PORCINE) 5,000 UNIT/ML 1 ML SYRINGE SUBCUT SCH (22:44)
[2018-07-01] MEDS: SUCRALFATE SUSP 1 GM/10 ML UDCUP NG SCH ×3 (00:13→12:35)
[2018-07-01] MEDS: IPRATROPIUM/ALBUTEROL 0.5-2.5 MG/3 ML AMPUL NEB SCH ×4 (02:35→20:28)
[2018-07-01] MEDS: FLUTICASONE/SALMETEROL DISKUS 250-50 MCG/DOSE IH SCH ×2 (06:14→17:06)
[2018-07-01] MEDS: TOBRAMYCIN SULFATE NEB 40 MG/ML 30 ML NEB SCH (08:30)
[2018-07-01] MEDS: ACETYLCYSTEINE 20% SOLN 800 MG/4 ML VIAL.NEB NEB SCH ×2 (08:30→20:28)
[2018-07-01] MEDS: NORMAL SALINE 10 ML SDV (AFTER EACH USE) IV PRN (09:05)
[2018-07-01] MEDS: PANTOPRAZOLE SODIUM 40 MG VIAL IV SCH ×2 (09:05→17:05)
[2018-07-01] MEDS: NORMAL SALINE 10 ML SDV (SCHEDULED) IV SCH (09:05)
[2018-07-01] MEDS: LEVOFLOXACIN 750 MG/D5W RTU 750 MG/150 ML RTUPB IV SCH (09:06)
[2018-07-01] MEDS: FLUTICASONE NASAL SPRAY 50 MCG/SPRY 120 SPRAY/16 GM NASL SCH (09:06)
[2018-07-01] MEDS: HEPARIN SOD (PORCINE) 5,000 UNIT/ML 1 ML SYRINGE SUBCUT SCH (09:06)
[2018-07-01] MEDS ORDERED: METHYLPREDNISOLONE INJ 40 MG/1 ML SDV IV SCH (10:00)
--- NOTE | 2018-07-01 15:03 | PDOC PROGRESS REPORT ---
Subjective Progress Note for:: 07/01/18 Subjective:: Patient was successfully extubated to BiPAP yesterday (06/30/18). She has been weaned off BiPAP and is comfortable and saturating well on 2 L of nasal cannula. This morning patient denies any acute complaint. He denies any shortness of breath or chest pain. No coughing. No nausea, vomiting, melena or hematochezia. Denies abdominal pain. Patient passed bedside swallow eval. Reason For Visit: LOWER EXTREMITIES CELLULITIS Physical Exam Vital Signs: Temp Pulse Resp BP Pulse Ox 98.8 F 76 27 H 128/72 H 100 07/01/18 12:00 07/01/18 14:31 07/01/18 14:46 07/01/18 14:46 07/01/18 14:46 Intake & Output 06/30/18 07/01/18 07/02/18 06:59 06:59 06:59 Intake Total 1782 1209 Output Total 1435 2185 920 Balance 347 -976 -920 Weight 283 lb 11.759 oz 280 lb 3.32 oz General appearance: PRESENT: no acute distress, well-developed, well-nourished Head exam: PRESENT: atraumatic, normocephalic Neck exam: ABSENT: carotid bruit, JVD, lymphadenopathy, thyromegaly Respiratory exam: PRESENT: clear to auscultation lui, rhonchi. ABSENT: rales, wheezes Cardiovascular exam: PRESENT: RRR. ABSENT: diastolic murmur, rubs, systolic murmur Pulses: PRESENT: normal dorsalis pedis pul GI/Abdominal exam: PRESENT: normal bowel sounds, soft. ABSENT: distended, guarding, mass, organolmegaly, rebound, tenderness Rectal exam: PRESENT: deferred Neurological exam: PRESENT: alert, awake, oriented to person, oriented to place Results Laboratory Results: 06/30/18 11:58 06/30/18 05:00 06/20/18 06/20/18 06/20/18 05:45 05:45 05:45 Creatine Kinase 73 CK-MB (CK-2) 0.62 Troponin I 0.014 NT-Pro-B Natriuret Pep 64 06/20/18 06/20/18 06/20/18 10:30 10:30 10:30 Creatine Kinase 97 Cancelled CK-MB (CK-2) 1.25 Troponin I 0.154 NT-Pro-B Natriuret Pep 06/20/18 06/20/18 06/20/18 10:30 16:02 16:02 Creatine Kinase 78 CK-MB (CK-2) Cancelled 1.12 Troponin I Cancelled 0.132 NT-Pro-B Natriuret Pep 06/20/18 06/20/18 22:15 22:15 Creatine Kinase 63 CK-MB (CK-2) 1.00 Troponin I 0.101 NT-Pro-B Natriuret Pep Impressions: Guidance Fluoroscopy 06/11/18 00:00 IMPRESSION: SUCCESSFUL PLACEMENT OF A 5 FR DUAL LUMEN 13 9 CM PICC IN THE LEFT BASILIC VEIN. Interventional Vascular Procedure 06/11/18 00:00 IMPRESSION: SUCCESSFUL PLACEMENT OF A 5 FR DUAL LUMEN 13 9 CM PICC IN THE LEFT BASILIC VEIN. PICC Line Insertion 06/11/18 00:00 IMPRESSION: SUCCESSFUL PLACEMENT OF A 5 FR DUAL LUMEN 13 9 CM PICC IN THE LEFT BASILIC VEIN. Chest/Abdomen CTA 06/20/18 09:17 IMPRESSION: No CT angio evidence of acute pulmonary emboli. PICC line, endotracheal tube, nasogastric tube in good positioning. Bandlike airspace disease in the dependent portions of both lungs, likely atelectasis. Abdomen/Pelvis CT 06/28/18 00:00 IMPRESSION: Small pleural effusions. Bilateral airspace disease. Atelectasis versus pneumonia. Cholelithiasis. Diverticulosis. Head CT 06/28/18 00:00 IMPRESSION: NORMAL BRAIN CT WITHOUT CONTRAST. EVIDENCE OF ACUTE STROKE: NO. KUB X-Ray 06/28/18 00:00 IMPRESSION: Nasogastric tube tip and side port in the stomach. Stomach decompressed. Moderate stool in the colon. Otherwise unremarkable bowel gas pattern. Chest X-Ray 06/30/18 06:00 IMPRESSION: No significant interval change. Assessment & Plan - Diagnosis (1) Acute hypercapnic respiratory failure Is this a current diagnosis for this admission?: Yes Plan: Resolved. Patient developed acute hypercapnic respiratory failure on the floor. Although exact etiology is not clear, medication effect from opiates is a likely cause. Successfully extubated on 06/30/18. He has been weaned off BiPAP overnight. Currently comfortable and saturating well on 2 L nasal cannula. (2) Aspiration into airway Is this a current diagnosis for this admission?: Yes Plan: Patient had aspiration of tube feeding contents when he was repositioned 2 days prior to being extubated. No clinical signs or symptoms suggestive for development of aspiration pneumonia so far. (3) COPD (chronic obstructive pulmonary disease) Qualifiers: Chronic bronchitis type: unspecified Is this a current diagnosis for this admission?: Yes Plan: Stable. Continue breathing treatments. We will switch IV steroids to PO and decrease dose to prednisone 20 mg daily. (4) DVT of axillary vein, chronic Is this a current diagnosis for this admission?: Yes Plan: No hematemesis. Hemoglobin has been stable. We will resume Xarelto. (5) Tracheobronchitis Is this a current diagnosis for this admission?: Yes Plan: Sputum culture grew MSSA and Klebsiella. Cate from sputum is likely colonization. Discontinue tobramycin and levofloxacin (total of 9 days of antibiotics) today. (6) Cellulitis of both lower extremities Is this a current diagnosis for this admission?: Yes Plan: Completed antibiotic therapy on the floor before patient went into respiratory failure. - Time Time Spent with patient: 25-34 minutes
[2018-07-01] MEDS: DOCUSATE SODIUM 100 MG CAPSULE PO SCH (17:05)
[2018-07-01] MEDS: RIVAROXABAN 10 MG TABLET PO SCH (17:06)
[2018-07-02] MEDS: MELATONIN 5 MG TABLET PO SCH ×2 (01:53→21:45)
[2018-07-02] MEDS: MONTELUKAST SODIUM 10 MG TABLET NG SCH ×2 (01:53→21:45)
[2018-07-02] MEDS: FLUTICASONE NASAL SPRAY 50 MCG/SPRY 120 SPRAY/16 GM NASL SCH ×3 (01:53→21:44)
[2018-07-02] MEDS: ATORVASTATIN CALCIUM 40 MG TABLET NG SCH ×2 (01:53→21:45)
[2018-07-02] MEDS: IPRATROPIUM/ALBUTEROL 0.5-2.5 MG/3 ML AMPUL NEB SCH ×4 (03:01→20:15)
[2018-07-02] MEDS: FLUTICASONE/SALMETEROL DISKUS 250-50 MCG/DOSE IH SCH ×2 (05:37→17:24)
[2018-07-02 06:07] LABS: ABSOLUTE EOSINOPHILS # (AUTO) 0.2 10^3/uL (0.0-0.6); ABSOLUTE LYMPHOCYTES (AUTO) 2.9 10^3/uL (0.5-4.7); ABSOLUTE MONOCYTES (AUTO) 1.8 10^3/uL (0.1-1.4); ABSOLUTE NEUT (AUTO) 12.6 10^3/uL (1.7-8.2); BASOPHILS % (AUTO) 0.1 % (0-2); EOSINOPHILS % (AUTO) 0.9 % (0-6); HEMATOCRIT 36.1 % (37.9-51.0); HEMOGLOBIN 11.9 g/dL (13.5-17.0); LYMPHOCYTES % (AUTO) 16.4 % (13-45); MEAN CORPUSCULAR HEMOGLOBIN 29.1 pg (27.0-33.4); MEAN CORPUSCULAR VOLUME 88 fl (80-97); MONOCYTES % (AUTO) 10.5 % (3-13); PLATELET COUNT 250 10^3/uL (150-450); RED BLOOD COUNT 4.09 10^6/uL (4.35-5.55); RED CELL DISTRIBUTION WIDTH 18.2 % (11.5-14.0); SEGMENTED NEUTROPHILS % (AUTO) 72.1 % (42-78); TOTAL CELLS COUNTED % (AUTO) 100 %; WHITE BLOOD COUNT 17.4 10^3/uL (4.0-10.5)
[2018-07-02 06:08] LABS: ANION GAP 9 (5-19); BLOOD UREA NITROGEN 16 mg/dL (7-20); CALCIUM 8.4 mg/dL (8.4-10.2); CARBON DIOXIDE 29 mmol/L (22-30); CHLORIDE 106 mmol/L (98-107); GLUCOSE 85 mg/dL (75-110); SODIUM 144.1 mmol/L (137-145)
[2018-07-02 06:13] LABS: POTASSIUM 2.8 mmol/L (3.6-5.0)
[2018-07-02] MEDS ORDERED: POTASSI CL 20 MEQ/50 ML RIDER 20 MEQ/50 ML RTUPB IV ONE (06:24)
[2018-07-02] MEDS: POTASSIUM CHLORIDE 20 MEQ/50 ML RTU IV SCH ×2 (07:28→10:16)
--- NOTE | 2018-07-02 07:43 | RADIOLOGY REPORT (SQ) ---
EXAM DESCRIPTION: CHEST SINGLE VIEW COMPLETED DATE/TIME: 07/02/2018 7:00 am REASON FOR STUDY: cough COMPARISON: CT angio chest 06/20/2018 Chest films 06/28/2018, 06/29/2018, 06/30/2018 EXAM PARAMETERS: NUMBER OF VIEWS: One view. TECHNIQUE: Single frontal radiographic view of the chest acquired. RADIATION DOSE: NA LIMITATIONS: None. FINDINGS: LUNGS AND PLEURA: Minimal left retrocardiac consolidation, atelectasis versus pneumonia. Is similar over the series of exams. Persistent increased interstitial markings around the periphery of both lungs, could represent fibros is rather than interstitial edema. This is stable over the series of exams. No pleural effusion or pneumothorax MEDIASTINUM AND HILAR STRUCTURES: No masses. Contour normal. HEART AND VASCULAR STRUCTURES: Heart normal in size. Normal vasculature. BONES: No acute findings. HARDWARE: Left PICC line tip superior vena cava OTHER: No other significant finding. IMPRESSION: Persistent left retrocardiac consolidation atelectasis versus pneumonia TECHNICAL DOCUMENTATION: JOB ID: [id number] [employer]- All Rights Reserved Reading location - IP/workstation name: [facility]
[2018-07-02] MEDS: ACETYLCYSTEINE 20% SOLN 800 MG/4 ML VIAL.NEB NEB SCH ×2 (09:13→20:15)
[2018-07-02] MEDS ORDERED: AMPICILLIN SOD/SULBACTAM 1.5 GM VIAL IV SCH (09:15)
[2018-07-02] MEDS ORDERED: PREDNISONE 20 MG TABLET PO SCH (10:00)
[2018-07-02] MEDS: FOLIC ACID 1 MG TABLET NG SCH (10:17)
[2018-07-02] MEDS: DOCUSATE SODIUM 100 MG CAPSULE PO SCH ×2 (10:17→17:23)
[2018-07-02] MEDS: PREDNISONE 20 MG TABLET PO SCH (10:17)
[2018-07-02] MEDS: PANTOPRAZOLE SODIUM 40 MG VIAL IV SCH (10:17)
[2018-07-02] MEDS: LACTOBACILLUS ACIDOPHILUS 250 MG TAB NG SCH (10:17)
[2018-07-02] MEDS: CHOLECALCIFEROL (D3) 1,000 UNIT TABLET NG SCH (10:18)
[2018-07-02] MEDS: CYANOCOBALAMIN (VITAMIN B-12) 1,000 MCG TABLET NG SCH (10:18)
[2018-07-02] MEDS: MULTIVIT-STRESS FORMULA/ZINC TABLET NG SCH (10:18)
[2018-07-02] MEDS ORDERED: POTASSIUM CHLORIDE 10 MEQ CAPSULE.ER PO ONE (10:30)
[2018-07-02] MEDS: ACETAMINOPHEN 325 MG TABLET PO PRN (13:25)
[2018-07-02] MEDS: AMPICILLIN SODIUM/SULBACTAM NA 1.5 GM in NORMAL SALINE 50 ML IV SCH ×3 (13:27→23:43)
--- NOTE | 2018-07-02 17:15 | PDOC PROGRESS REPORT ---
Subjective Progress Note for:: 07/02/18 Subjective:: Patient was successfully extubated to BiPAP on 06/30/18. Patient is saturating well on 2 L of nasal cannula. He says he feels a little short of breath this morning. He does have a few wheezing this morning. He said he just got a breathing treatment. He is tolerating diet well. Reason For Visit: LOWER EXTREMITIES CELLULITIS Physical Exam Vital Signs: Temp Pulse Resp BP Pulse Ox 97.6 F 98 14 132/66 H 94 07/02/18 12:35 07/02/18 14:18 07/02/18 14:18 07/02/18 12:35 07/02/18 14:18 Intake & Output 07/01/18 07/02/18 07/03/18 06:59 06:59 06:59 Intake Total 1209 300 Output Total 2185 2900 900 Balance -976 -2900 -600 Weight 280 lb 3.32 oz 274 lb 14.663 oz General appearance: PRESENT: no acute distress, well-developed, well-nourished Head exam: PRESENT: atraumatic, normocephalic Neck exam: ABSENT: carotid bruit, JVD, lymphadenopathy, thyromegaly Respiratory exam: PRESENT: rhonchi - Crackles or wheezing Pulses: PRESENT: normal dorsalis pedis pul GI/Abdominal exam: PRESENT: normal bowel sounds, soft. ABSENT: distended, guarding, mass, organolmegaly, rebound, tenderness Rectal exam: PRESENT: deferred Neurological exam: PRESENT: alert, awake, oriented to person, oriented to place , oriented to time, oriented to situation, CN II-XII grossly intact. ABSENT: motor sensory deficit Results Laboratory Results: 07/02/18 05:45 07/02/18 05:45 07/02/18 07/02/18 05:45 05:45 WBC 17.4 H RBC 4.09 L Hgb 11.9 L Hct 36.1 L MCV 88 MCH 29.1 MCHC 33.0 RDW 18.2 H Plt Count 250 Seg Neutrophils % 72.1 Lymphocytes % 16.4 Monocytes % 10.5 Eosinophils % 0.9 Basophils % 0.1 Absolute Neutrophils 12.6 H Absolute Lymphocytes 2.9 Absolute Monocytes 1.8 H Absolute Eosinophils 0.2 Absolute Basophils 0.0 Sodium 144.1 Potassium 2.8 L* Chloride 106 Carbon Dioxide 29 Anion Gap 9 BUN 16 Creatinine 0.55 Est GFR ( Amer) > 60 Est GFR (Non-Af Amer) > 60 Glucose 85 Calcium 8.4 06/20/18 06/20/18 06/20/18 05:45 05:45 05:45 Creatine Kinase 73 CK-MB (CK-2) 0.62 Troponin I 0.014 NT-Pro-B Natriuret Pep 64 06/20/18 06/20/18 06/20/18 10:30 10:30 10:30 Creatine Kinase 97 Cancelled CK-MB (CK-2) 1.25 Troponin I 0.154 NT-Pro-B Natriuret Pep 06/20/18 06/20/18 06/20/18 10:30 16:02 16:02 Creatine Kinase 78 CK-MB (CK-2) Cancelled 1.12 Troponin I Cancelled 0.132 NT-Pro-B Natriuret Pep 06/20/18 06/20/18 22:15 22:15 Creatine Kinase 63 CK-MB (CK-2) 1.00 Troponin I 0.101 NT-Pro-B Natriuret Pep Impressions: Guidance Fluoroscopy 06/11/18 00:00 IMPRESSION: SUCCESSFUL PLACEMENT OF A 5 FR DUAL LUMEN 13 9 CM PICC IN THE LEFT BASILIC VEIN. Interventional Vascular Procedure 06/11/18 00:00 IMPRESSION: SUCCESSFUL PLACEMENT OF A 5 FR DUAL LUMEN 13 9 CM PICC IN THE LEFT BASILIC VEIN. PICC Line Insertion 06/11/18 00:00 IMPRESSION: SUCCESSFUL PLACEMENT OF A 5 FR DUAL LUMEN 13 9 CM PICC IN THE LEFT BASILIC VEIN. Chest/Abdomen CTA 06/20/18 09:17 IMPRESSION: No CT angio evidence of acute pulmonary emboli. PICC line, endotracheal tube, nasogastric tube in good positioning. Bandlike airspace disease in the dependent portions of both lungs, likely atelectasis. Abdomen/Pelvis CT 06/28/18 00:00 IMPRESSION: Small pleural effusions. Bilateral airspace disease. Atelectasis versus pneumonia. Cholelithiasis. Diverticulosis. Head CT 06/28/18 00:00 IMPRESSION: NORMAL BRAIN CT WITHOUT CONTRAST. EVIDENCE OF ACUTE STROKE: NO. KUB X-Ray 06/28/18 00:00 IMPRESSION: Nasogastric tube tip and side port in the stomach. Stomach decompressed. Moderate stool in the colon. Otherwise unremarkable bowel gas pattern. Chest X-Ray 07/02/18 07:00 IMPRESSION: Persistent left retrocardiac consolidation atelectasis versus pneumonia Assessment & Plan - Diagnosis (1) Acute hypercapnic respiratory failure Is this a current diagnosis for this admission?: Yes Plan: Resolved. Patient developed acute hypercapnic respiratory failure on the floor. Although exact etiology is not clear, medication effect from opiates is a likely cause. Successfully extubated on 06/30/18. He has not been BiPAP dependent and saturating well currently on 2 L nasal cannula. (2) Aspiration into airway Is this a current diagnosis for this admission?: Yes Plan: Patient had aspiration of significant amount of tube feeding contents when he was repositioned 2 days prior to being extubated. Patient's WBC is starting to trend up again. He complains of mild shortness of breath today but is not having any significant coughing yet. Will empirically start treatment for coverage for possible aspiration pneumonia. Patient will be started on Unasyn today (07/02/18) for 7 days. (3) COPD (chronic obstructive pulmonary disease) Qualifiers: COPD type: chronic bronchitis Chronic bronchitis type: unspecified Qualified Code(s): J42 - Unspecified chronic bronchitis Is this a current diagnosis for this admission?: Yes Plan: Stable. Continue breathing treatments. Continue steroids. (4) DVT of axillary vein, chronic Is this a current diagnosis for this admission?: Yes Plan: No hematemesis. Hemoglobin has been stable. Continue Xarelto. (5) Tracheobronchitis Is this a current diagnosis for this admission?: Yes Plan: Sputum culture (obtained through the ET tube in the first few days of intubation ) grew MSSA and Klebsiella. Cate from sputum is likely colonization. Patient was treated with Levaquin and tobramycin for this. (6) Cellulitis of both lower extremities Is this a current diagnosis for this admission?: Yes Plan: Completed antibiotic therapy on the floor before patient went into respiratory failure. - Time Time Spent with patient: 25-34 minutes
[2018-07-02] MEDS: RIVAROXABAN 10 MG TABLET PO SCH (17:23)
[2018-07-02 18:28] LABS: ARTERIAL BLOOD BASE EXCESS 3.9 mmol/L; ARTERIAL BLOOD H2CO3 1.12 mmol/L (1.05-1.35); ARTERIAL BLOOD HCO3 27.3 mmol/L (20-26); ARTERIAL BLOOD O2 SATURATION 94.5 % (94-98); ARTERIAL BLOOD PCO2 37.3 mmHg (35-45); ARTERIAL BLOOD PH 7.48 (7.35-7.45); ARTERIAL BLOOD PO2 66.3 mmHg (80-100); ARTERIAL BLOOD TOTAL CO2 28.5 mmol/L (23-27)
[2018-07-02 18:29] LABS: ARTERIAL BLOOD FIO2 3L
[2018-07-02] MEDS: NORMAL SALINE 10 ML SDV (AFTER EACH USE) IV PRN (21:46)
[2018-07-03] MEDS: IPRATROPIUM/ALBUTEROL 0.5-2.5 MG/3 ML AMPUL NEB SCH ×4 (02:08→19:34)
[2018-07-03] MEDS: AMPICILLIN SODIUM/SULBACTAM NA 1.5 GM in NORMAL SALINE 50 ML IV SCH (06:20)
[2018-07-03] MEDS: FLUTICASONE/SALMETEROL DISKUS 250-50 MCG/DOSE IH SCH ×2 (06:21→17:14)
[2018-07-03] MEDS: ACETYLCYSTEINE 20% SOLN 800 MG/4 ML VIAL.NEB NEB SCH ×2 (07:41→19:34)
[2018-07-03 08:31] LABS: HEMATOCRIT 34.7 % (37.9-51.0); HEMOGLOBIN 11.5 g/dL (13.5-17.0); MEAN CORPUSCULAR HGB CONC 33.2 g/dL (32.0-36.0); MEAN CORPUSCULAR VOLUME 88 fl (80-97); PLATELET COUNT 219 10^3/uL (150-450); RED BLOOD COUNT 3.96 10^6/uL (4.35-5.55); RED CELL DISTRIBUTION WIDTH 17.8 % (11.5-14.0); WHITE BLOOD COUNT 19.9 10^3/uL (4.0-10.5)
[2018-07-03 08:43] LABS: ANION GAP 10 (5-19); BLOOD UREA NITROGEN 13 mg/dL (7-20); CALCIUM 8.5 mg/dL (8.4-10.2); CARBON DIOXIDE 28 mmol/L (22-30); CHLORIDE 105 mmol/L (98-107); GLUCOSE 89 mg/dL (75-110); SODIUM 142.5 mmol/L (137-145)
[2018-07-03] MEDS: MULTIVIT-STRESS FORMULA/ZINC TABLET NG SCH (09:42)
[2018-07-03] MEDS: PREDNISONE 20 MG TABLET PO SCH (09:42)
[2018-07-03] MEDS: CYANOCOBALAMIN (VITAMIN B-12) 1,000 MCG TABLET NG SCH (09:42)
[2018-07-03] MEDS: FOLIC ACID 1 MG TABLET NG SCH (09:43)
[2018-07-03] MEDS: FLUTICASONE NASAL SPRAY 50 MCG/SPRY 120 SPRAY/16 GM NASL SCH ×2 (09:43→21:26)
[2018-07-03] MEDS: LACTOBACILLUS ACIDOPHILUS 250 MG TAB NG SCH (09:43)
[2018-07-03] MEDS: DOCUSATE SODIUM 100 MG CAPSULE PO SCH ×2 (09:43→17:14)
[2018-07-03] MEDS: CHOLECALCIFEROL (D3) 1,000 UNIT TABLET NG SCH (09:43)
[2018-07-03] MEDS ORDERED: POTASSIUM CHLORIDE 10 MEQ CAPSULE.ER PO ONE (11:00)
[2018-07-03] MEDS: CIPROFLOXACIN 400 MG/D5W RTU 400 MG/200 ML RTUPB IV SCH ×2 (13:52→21:26)
[2018-07-03] MEDS: RIVAROXABAN 10 MG TABLET PO SCH (17:14)
[2018-07-03] MEDS: MELATONIN 5 MG TABLET PO SCH (21:25)
[2018-07-03] MEDS: ACETAMINOPHEN 325 MG TABLET PO PRN (21:25)
[2018-07-03] MEDS: ATORVASTATIN CALCIUM 40 MG TABLET NG SCH (21:26)
[2018-07-03] MEDS: MONTELUKAST SODIUM 10 MG TABLET NG SCH (21:26)
[2018-07-04] MEDS: IPRATROPIUM/ALBUTEROL 0.5-2.5 MG/3 ML AMPUL NEB SCH ×4 (01:03→20:18)
[2018-07-04] MEDS: ACETAMINOPHEN 325 MG TABLET PO PRN ×2 (05:35→21:52)
[2018-07-04] MEDS: FLUTICASONE/SALMETEROL DISKUS 250-50 MCG/DOSE IH SCH ×2 (05:35→17:03)
[2018-07-04 06:00] LABS: ABSOLUTE BASOPHILS # (AUTO) 0.1 10^3/uL (0.0-0.2); ABSOLUTE EOSINOPHILS # (AUTO) 0.3 10^3/uL (0.0-0.6); ABSOLUTE LYMPHOCYTES (AUTO) 3.1 10^3/uL (0.5-4.7); ABSOLUTE MONOCYTES (AUTO) 1.4 10^3/uL (0.1-1.4); ABSOLUTE NEUT (AUTO) 14.6 10^3/uL (1.7-8.2); BASOPHILS % (AUTO) 0.5 % (0-2); EOSINOPHILS % (AUTO) 1.6 % (0-6); HEMATOCRIT 34.5 % (37.9-51.0); HEMOGLOBIN 11.3 g/dL (13.5-17.0); LYMPHOCYTES % (AUTO) 16.1 % (13-45); MEAN CORPUSCULAR HEMOGLOBIN 28.9 pg (27.0-33.4); MEAN CORPUSCULAR HGB CONC 32.8 g/dL (32.0-36.0); MEAN CORPUSCULAR VOLUME 88 fl (80-97); PLATELET COUNT 220 10^3/uL (150-450); RED BLOOD COUNT 3.91 10^6/uL (4.35-5.55); RED CELL DISTRIBUTION WIDTH 18.2 % (11.5-14.0); SEGMENTED NEUTROPHILS % (AUTO) 74.8 % (42-78); TOTAL CELLS COUNTED % (AUTO) 100 %; WHITE BLOOD COUNT 19.4 10^3/uL (4.0-10.5)
[2018-07-04 06:19] LABS: ALANINE AMINOTRANSFERASE 42 U/L (21-72); ALBUMIN 2.8 g/dL (3.5-5.0); ALKALINE PHOSPHATASE 49 U/L (38-126); ANION GAP 11 (5-19); ASPARTATE AMINO TRANSFERASE 27 U/L (17-59); BILIRUBIN,DIRECT 0.3 mg/dL (0.0-0.4); BILIRUBIN,TOTAL 1.2 mg/dL (0.2-1.3); BLOOD UREA NITROGEN 10 mg/dL (7-20); CALCIUM 8.7 mg/dL (8.4-10.2); CARBON DIOXIDE 27 mmol/L (22-30); CHLORIDE 104 mmol/L (98-107); GLUCOSE 79 mg/dL (75-110); SODIUM 141.5 mmol/L (137-145)
[2018-07-04 06:24] LABS: POTASSIUM 2.9 mmol/L (3.6-5.0)
[2018-07-04] MEDS: ACETYLCYSTEINE 20% SOLN 800 MG/4 ML VIAL.NEB NEB SCH ×2 (07:34→20:18)
--- NOTE | 2018-07-04 07:52 | PDOC PROGRESS REPORT ---
Subjective Progress Note for:: 07/03/18 Subjective:: Patient is doing fine no acute events overnight patient complains of right lower extremity swelling and mild pain otherwise denies any pain Reason For Visit: LOWER EXTREMITIES CELLULITIS Physical Exam Vital Signs: Temp Pulse Resp BP Pulse Ox 98.4 F 90 12 133/77 H 92 07/03/18 07:38 07/03/18 07:42 07/03/18 07:42 07/03/18 07:38 07/03/18 07:42 Intake & Output 07/02/18 07/03/18 07/04/18 06:59 06:59 06:59 Intake Total 400 50 Output Total 2900 1650 Balance -2900 -1250 50 Weight 124.7 kg 120.3 kg General appearance: PRESENT: no acute distress, well-developed, well-nourished Head exam: PRESENT: atraumatic, normocephalic Eye exam: PRESENT: conjunctiva pink, EOMI, PERRLA. ABSENT: scleral icterus Ear exam: PRESENT: normal external ear exam Mouth exam: PRESENT: moist, tongue midline Neck exam: ABSENT: carotid bruit, JVD, lymphadenopathy, thyromegaly Respiratory exam: PRESENT: clear to auscultation lui. ABSENT: rales, rhonchi, wheezes Cardiovascular exam: PRESENT: RRR. ABSENT: diastolic murmur, rubs, systolic murmur Pulses: PRESENT: normal dorsalis pedis pul Vascular exam: PRESENT: normal capillary refill GI/Abdominal exam: PRESENT: normal bowel sounds, soft. ABSENT: distended, guarding, mass, organolmegaly, rebound, tenderness Rectal exam: PRESENT: deferred Extremities exam: PRESENT: full ROM, pedal edema - History of RLE lympedema, +2 edema. ABSENT: calf tenderness, clubbing Neurological exam: PRESENT: alert, awake, oriented to person, oriented to place , oriented to time, oriented to situation, CN II-XII grossly intact. ABSENT: motor sensory deficit Psychiatric exam: PRESENT: appropriate affect, normal mood. ABSENT: homicidal ideation, suicidal ideation Skin exam: PRESENT: dry, erythema, warm. ABSENT: cyanosis, rash Results Laboratory Results: 07/03/18 07:30 07/03/18 07:30 07/02/18 07/03/18 07/03/18 18:16 07:30 07:30 WBC 19.9 H RBC 3.96 L Hgb 11.5 L Hct 34.7 L MCV 88 MCH 29.0 MCHC 33.2 RDW 17.8 H Plt Count 219 Carbonic Acid 1.12 HCO3/H2CO3 Ratio 24:1 ABG pH 7.48 H ABG pCO2 37.3 ABG pO2 66.3 L ABG HCO3 27.3 H ABG O2 Saturation 94.5 ABG Base Excess 3.9 FiO2 3L Sodium 142.5 Potassium 3.0 L* Chloride 105 Carbon Dioxide 28 Anion Gap 10 BUN 13 Creatinine 0.50 L Est GFR ( Amer) > 60 Est GFR (Non-Af Amer) > 60 Glucose 89 Calcium 8.5 06/20/18 06/20/18 06/20/18 05:45 05:45 05:45 Creatine Kinase 73 CK-MB (CK-2) 0.62 Troponin I 0.014 NT-Pro-B Natriuret Pep 64 06/20/18 06/20/18 06/20/18 10:30 10:30 10:30 Creatine Kinase 97 Cancelled CK-MB (CK-2) 1.25 Troponin I 0.154 NT-Pro-B Natriuret Pep 06/20/18 06/20/18 06/20/18 10:30 16:02 16:02 Creatine Kinase 78 CK-MB (CK-2) Cancelled 1.12 Troponin I Cancelled 0.132 NT-Pro-B Natriuret Pep 06/20/18 06/20/18 22:15 22:15 Creatine Kinase 63 CK-MB (CK-2) 1.00 Troponin I 0.101 NT-Pro-B Natriuret Pep Impressions: Guidance Fluoroscopy 06/11/18 00:00 IMPRESSION: SUCCESSFUL PLACEMENT OF A 5 FR DUAL LUMEN 13 9 CM PICC IN THE LEFT BASILIC VEIN. Interventional Vascular Procedure 06/11/18 00:00 IMPRESSION: SUCCESSFUL PLACEMENT OF A 5 FR DUAL LUMEN 13 9 CM PICC IN THE LEFT BASILIC VEIN. PICC Line Insertion 06/11/18 00:00 IMPRESSION: SUCCESSFUL PLACEMENT OF A 5 FR DUAL LUMEN 13 9 CM PICC IN THE LEFT BASILIC VEIN. Chest/Abdomen CTA 06/20/18 09:17 IMPRESSION: No CT angio evidence of acute pulmonary emboli. PICC line, endotracheal tube, nasogastric tube in good positioning. Bandlike airspace disease in the dependent portions of both lungs, likely atelectasis. Abdomen/Pelvis CT 06/28/18 00:00 IMPRESSION: Small pleural effusions. Bilateral airspace disease. Atelectasis versus pneumonia. Cholelithiasis. Diverticulosis. Head CT 06/28/18 00:00 IMPRESSION: NORMAL BRAIN CT WITHOUT CONTRAST. EVIDENCE OF ACUTE STROKE: NO. KUB X-Ray 06/28/18 00:00 IMPRESSION: Nasogastric tube tip and side port in the stomach. Stomach decompressed. Moderate stool in the colon. Otherwise unremarkable bowel gas pattern. Chest X-Ray 07/02/18 07:00 IMPRESSION: Persistent left retrocardiac consolidation atelectasis versus pneumonia Assessment & Plan - Diagnosis (1) COPD (chronic obstructive pulmonary disease) Qualifiers: COPD type: chronic bronchitis Chronic bronchitis type: unspecified Qualified Code(s): J42 - Unspecified chronic bronchitis Is this a current diagnosis for this admission?: Yes Plan: On prednisone 40 daily. day 2/5 We will continue neb treatment. (2) Hypokalemia Is this a current diagnosis for this admission?: Yes Plan: I will replace as needed patient. Was given 20 of K-Dur today will follow up with potassium tomorrow and denies any diarrhea (3) Morbid obesity Is this a current diagnosis for this admission?: No (4) Pneumonia, Klebsiella Qualifiers: Laterality: left Is this a current diagnosis for this admission?: Yes Plan: We will switch to ciprofloxacin patient has has a history of allergies to cephalexin and so we will avoid cephalosporins at this time will follow up tomorrow if no changes will switch antibiotics again. (5) Chronic deep vein thrombosis (DVT) Is this a current diagnosis for this admission?: Yes Plan: Patient on Xarelto - Time Time Spent with patient: 15-24 minutes
[2018-07-04] MEDS: LACTOBACILLUS ACIDOPHILUS 250 MG TAB NG SCH (09:51)
[2018-07-04] MEDS: MULTIVIT-STRESS FORMULA/ZINC TABLET NG SCH (09:52)
[2018-07-04] MEDS: DOCUSATE SODIUM 100 MG CAPSULE PO SCH ×2 (09:52→17:03)
[2018-07-04] MEDS: POTASSIUM CHLORIDE 20 MEQ/50 ML RTU IV SCH ×2 (09:52→13:03)
[2018-07-04] MEDS: CHOLECALCIFEROL (D3) 1,000 UNIT TABLET NG SCH (09:52)
[2018-07-04] MEDS: CYANOCOBALAMIN (VITAMIN B-12) 1,000 MCG TABLET NG SCH (09:52)
[2018-07-04] MEDS: PREDNISONE 20 MG TABLET PO SCH (09:52)
[2018-07-04] MEDS: FLUTICASONE NASAL SPRAY 50 MCG/SPRY 120 SPRAY/16 GM NASL SCH ×2 (09:53→21:53)
[2018-07-04] MEDS: CIPROFLOXACIN 400 MG/D5W RTU 400 MG/200 ML RTUPB IV SCH ×2 (09:53→21:52)
[2018-07-04] MEDS: FOLIC ACID 1 MG TABLET NG SCH (09:53)
[2018-07-04] MEDS: RIVAROXABAN 10 MG TABLET PO SCH (17:03)
--- NOTE | 2018-07-04 18:33 | PDOC PROGRESS REPORT ---
Subjective Progress Note for:: 07/04/18 Subjective:: Patient is saturating well on supplemental oxygen patient is on nightly BiPAP. No acute events overnight. Patient denies any fever chills nausea vomiting abdominal pain. Reason For Visit: LOWER EXTREMITIES CELLULITIS Physical Exam Vital Signs: Temp Pulse Resp BP Pulse Ox 98.7 F 93 14 119/86 H 90 L 07/04/18 11:58 07/04/18 14:00 07/04/18 13:40 07/04/18 11:58 07/04/18 13:40 Intake & Output 07/03/18 07/04/18 07/05/18 06:59 06:59 06:59 Intake Total 400 550 300 Output Total 1650 3175 400 Balance -1250 -5075 -100 Weight 120.3 kg 116.4 kg General appearance: PRESENT: no acute distress, well-developed, well-nourished Head exam: PRESENT: atraumatic, normocephalic Eye exam: PRESENT: conjunctiva pink, EOMI, PERRLA. ABSENT: scleral icterus Ear exam: PRESENT: normal external ear exam Mouth exam: PRESENT: moist, tongue midline Neck exam: ABSENT: carotid bruit, JVD, lymphadenopathy, thyromegaly Respiratory exam: PRESENT: clear to auscultation lui. ABSENT: rales, rhonchi, wheezes Cardiovascular exam: PRESENT: RRR. ABSENT: diastolic murmur, rubs, systolic murmur Pulses: PRESENT: normal dorsalis pedis pul Vascular exam: PRESENT: normal capillary refill GI/Abdominal exam: PRESENT: normal bowel sounds, soft. ABSENT: distended, guarding, mass, organolmegaly, rebound, tenderness Rectal exam: PRESENT: deferred Extremities exam: PRESENT: full ROM, +2 edema - Right lower extremity due to chronic lymphedema. Left lower extremity no sign of edema. ABSENT: calf tenderness, clubbing, pedal edema Neurological exam: PRESENT: alert, awake, oriented to person, oriented to place , oriented to time, oriented to situation, CN II-XII grossly intact. ABSENT: motor sensory deficit Psychiatric exam: PRESENT: appropriate affect, normal mood. ABSENT: homicidal ideation, suicidal ideation Skin exam: PRESENT: dry, intact, warm. ABSENT: cyanosis, rash Results Laboratory Results: 07/04/18 05:40 07/04/18 05:40 07/04/18 07/04/18 05:40 05:40 WBC 19.4 H RBC 3.91 L Hgb 11.3 L Hct 34.5 L MCV 88 MCH 28.9 MCHC 32.8 RDW 18.2 H Plt Count 220 Seg Neutrophils % 74.8 Lymphocytes % 16.1 Monocytes % 7.0 Eosinophils % 1.6 Basophils % 0.5 Absolute Neutrophils 14.6 H Absolute Lymphocytes 3.1 Absolute Monocytes 1.4 Absolute Eosinophils 0.3 Absolute Basophils 0.1 Sodium 141.5 Potassium 2.9 L* Chloride 104 Carbon Dioxide 27 Anion Gap 11 BUN 10 Creatinine 0.48 L Est GFR ( Amer) > 60 Est GFR (Non-Af Amer) > 60 Glucose 79 Calcium 8.7 Total Bilirubin 1.2 AST 27 ALT 42 Alkaline Phosphatase 49 Total Protein 6.0 L Albumin 2.8 L 06/20/18 06/20/18 06/20/18 05:45 05:45 05:45 Creatine Kinase 73 CK-MB (CK-2) 0.62 Troponin I 0.014 NT-Pro-B Natriuret Pep 64 06/20/18 06/20/18 06/20/18 10:30 10:30 10:30 Creatine Kinase 97 Cancelled CK-MB (CK-2) 1.25 Troponin I 0.154 NT-Pro-B Natriuret Pep 06/20/18 06/20/18 06/20/18 10:30 16:02 16:02 Creatine Kinase 78 CK-MB (CK-2) Cancelled 1.12 Troponin I Cancelled 0.132 NT-Pro-B Natriuret Pep 06/20/18 06/20/18 22:15 22:15 Creatine Kinase 63 CK-MB (CK-2) 1.00 Troponin I 0.101 NT-Pro-B Natriuret Pep Impressions: Guidance Fluoroscopy 06/11/18 00:00 IMPRESSION: SUCCESSFUL PLACEMENT OF A 5 FR DUAL LUMEN 13 9 CM PICC IN THE LEFT BASILIC VEIN. Interventional Vascular Procedure 06/11/18 00:00 IMPRESSION: SUCCESSFUL PLACEMENT OF A 5 FR DUAL LUMEN 13 9 CM PICC IN THE LEFT BASILIC VEIN. PICC Line Insertion 06/11/18 00:00 IMPRESSION: SUCCESSFUL PLACEMENT OF A 5 FR DUAL LUMEN 13 9 CM PICC IN THE LEFT BASILIC VEIN. Chest/Abdomen CTA 06/20/18 09:17 IMPRESSION: No CT angio evidence of acute pulmonary emboli. PICC line, endotracheal tube, nasogastric tube in good positioning. Bandlike airspace disease in the dependent portions of both lungs, likely atelectasis. Abdomen/Pelvis CT 06/28/18 00:00 IMPRESSION: Small pleural effusions. Bilateral airspace disease. Atelectasis versus pneumonia. Cholelithiasis. Diverticulosis. Head CT 06/28/18 00:00 IMPRESSION: NORMAL BRAIN CT WITHOUT CONTRAST. EVIDENCE OF ACUTE STROKE: NO. KUB X-Ray 06/28/18 00:00 IMPRESSION: Nasogastric tube tip and side port in the stomach. Stomach decompressed. Moderate stool in the colon. Otherwise unremarkable bowel gas pattern. Chest X-Ray 07/02/18 07:00 IMPRESSION: Persistent left retrocardiac consolidation atelectasis versus pneumonia Assessment & Plan - Diagnosis (1) Hypokalemia Is this a current diagnosis for this admission?: Yes Plan: Potassium was replaced with 40 mEq of K-Amelia will get a potassium tomorrow if normal patient will be transferred to a retirement. (2) COPD (chronic obstructive pulmonary disease) Qualifiers: COPD type: chronic bronchitis Chronic bronchitis type: unspecified Qualified Code(s): J42 - Unspecified chronic bronchitis Is this a current diagnosis for this admission?: Yes Plan: Stable continue breathing treatment and steroids. (3) Chronic deep vein thrombosis (DVT) Is this a current diagnosis for this admission?: Yes Plan: Stable continue Xarelto. (4) Cellulitis of both lower extremities Is this a current diagnosis for this admission?: Yes Plan: Continue ciprofloxacin. Blood cultures have been negative since 06/24/2018 (5) Acute hypercapnic respiratory failure Is this a current diagnosis for this admission?: Yes Plan: Stable nightly BiPAP vitals are stable.
[2018-07-04] MEDS: MELATONIN 5 MG TABLET PO SCH (21:52)
[2018-07-04] MEDS: ATORVASTATIN CALCIUM 40 MG TABLET NG SCH (21:52)
[2018-07-04] MEDS: MONTELUKAST SODIUM 10 MG TABLET NG SCH (21:52)
[2018-07-04] MEDS: NORMAL SALINE 10 ML SDV (AFTER EACH USE) IV PRN (21:53)
[2018-07-05] MEDS: IPRATROPIUM/ALBUTEROL 0.5-2.5 MG/3 ML AMPUL NEB SCH ×4 (02:10→19:57)
[2018-07-05 04:26] LABS: ABSOLUTE BASOPHILS # (AUTO) 0.1 10^3/uL (0.0-0.2); BASOPHILS % (AUTO) 0.6 % (0-2); HEMOGLOBIN 10.9 g/dL (13.5-17.0); RED CELL DISTRIBUTION WIDTH 18.3 % (11.5-14.0); TOTAL CELLS COUNTED % (AUTO) 100 %
[2018-07-05 04:31] LABS: ABSOLUTE EOSINOPHILS # (AUTO) 0.2 10^3/uL (0.0-0.6); HEMATOCRIT 32.8 % (37.9-51.0); LYMPHOCYTES % (AUTO) 17.8 % (13-45); MEAN CORPUSCULAR HEMOGLOBIN 29.2 pg (27.0-33.4); MEAN CORPUSCULAR HGB CONC 33.3 g/dL (32.0-36.0); MEAN CORPUSCULAR VOLUME 88 fl (80-97); PLATELET COUNT 204 10^3/uL (150-450); RED BLOOD COUNT 3.73 10^6/uL (4.35-5.55); SEGMENTED NEUTROPHILS % (AUTO) 70.6 % (42-78); WHITE BLOOD COUNT 11.3 10^3/uL (4.0-10.5)
[2018-07-05 04:45] LABS: ALANINE AMINOTRANSFERASE 45 U/L (21-72); ALBUMIN 2.6 g/dL (3.5-5.0); ALKALINE PHOSPHATASE 44 U/L (38-126); ANION GAP 11 (5-19); ASPARTATE AMINO TRANSFERASE 22 U/L (17-59); BILIRUBIN,DIRECT 0.4 mg/dL (0.0-0.4); BLOOD UREA NITROGEN 9 mg/dL (7-20); CALCIUM 8.5 mg/dL (8.4-10.2); CARBON DIOXIDE 26 mmol/L (22-30); CHLORIDE 105 mmol/L (98-107); GLUCOSE 75 mg/dL (75-110); SODIUM 141.6 mmol/L (137-145); TOTAL PROTEIN 5.4 g/dL (6.3-8.2)
[2018-07-05 04:47] LABS: POTASSIUM 2.8 mmol/L (3.6-5.0)
[2018-07-05] MEDS ORDERED: POTASSIUM CHLORIDE 20 MEQ/50 ML RTU IV ONE (05:00)
[2018-07-05] MEDS: FLUTICASONE/SALMETEROL DISKUS 250-50 MCG/DOSE IH SCH ×2 (05:13→17:10)
[2018-07-05] MEDS: ACETAMINOPHEN 325 MG TABLET PO PRN ×3 (05:13→22:23)
[2018-07-05] MEDS: ACETYLCYSTEINE 20% SOLN 800 MG/4 ML VIAL.NEB NEB SCH ×2 (07:35→19:57)
[2018-07-05] MEDS ORDERED: POTASSIUM CHLORIDE 10 MEQ CAPSULE.ER PO ONE ×3 (09:30→10:00)
[2018-07-05] MEDS: CIPROFLOXACIN 400 MG/D5W RTU 400 MG/200 ML RTUPB IV SCH ×2 (09:49→22:23)
[2018-07-05] MEDS: LACTOBACILLUS ACIDOPHILUS 250 MG TAB NG SCH (09:49)
[2018-07-05] MEDS: MULTIVIT-STRESS FORMULA/ZINC TABLET NG SCH (09:49)
[2018-07-05] MEDS: FOLIC ACID 1 MG TABLET NG SCH (09:50)
[2018-07-05] MEDS: PREDNISONE 20 MG TABLET PO SCH (09:50)
[2018-07-05] MEDS: DOCUSATE SODIUM 100 MG CAPSULE PO SCH ×2 (09:50→17:10)
[2018-07-05] MEDS: CHOLECALCIFEROL (D3) 1,000 UNIT TABLET NG SCH (09:50)
[2018-07-05] MEDS: CYANOCOBALAMIN (VITAMIN B-12) 1,000 MCG TABLET NG SCH (09:50)
[2018-07-05] MEDS: FLUTICASONE NASAL SPRAY 50 MCG/SPRY 120 SPRAY/16 GM NASL SCH ×2 (09:53→22:23)
[2018-07-05] MEDS: RIVAROXABAN 10 MG TABLET PO SCH (17:10)
--- NOTE | 2018-07-05 17:11 | PDOC PROGRESS REPORT ---
Subjective Progress Note for:: 07/05/18 Subjective:: No acute events overnight however at around 4:00 PM patient was found on the floor by the nurse. Patient was alert and oriented 3 no changes in his physical examination and no signs of external trauma. . Reason For Visit: LOWER EXTREMITIES CELLULITIS Physical Exam Vital Signs: Temp Pulse Resp BP Pulse Ox 98.5 F 99 20 112/69 92 07/05/18 07:55 07/05/18 07:55 07/05/18 07:55 07/05/18 07:55 07/05/18 07:55 Intake & Output 07/04/18 07/05/18 07/06/18 06:59 06:59 06:59 Intake Total 550 818 50 Output Total 3175 1525 Balance -3480 -990 50 Weight 116.4 kg 117.1 kg General appearance: PRESENT: no acute distress, well-developed, well-nourished Head exam: PRESENT: atraumatic, normocephalic Eye exam: PRESENT: conjunctiva pink, EOMI, PERRLA. ABSENT: scleral icterus Ear exam: PRESENT: normal external ear exam Mouth exam: PRESENT: moist, tongue midline Neck exam: ABSENT: carotid bruit, JVD, lymphadenopathy, thyromegaly Respiratory exam: PRESENT: clear to auscultation lui. ABSENT: rales, rhonchi, wheezes Cardiovascular exam: PRESENT: RRR. ABSENT: diastolic murmur, rubs, systolic murmur Pulses: PRESENT: normal dorsalis pedis pul Vascular exam: PRESENT: normal capillary refill GI/Abdominal exam: PRESENT: normal bowel sounds, soft. ABSENT: distended, guarding, mass, organolmegaly, rebound, tenderness Rectal exam: PRESENT: deferred Extremities exam: PRESENT: full ROM, +2 edema. ABSENT: calf tenderness, clubbing, pedal edema Musculoskeletal exam: PRESENT: dislocation, full ROM - Rt LE history of lymphedema. LLE no edema. Neurological exam: PRESENT: alert, awake, oriented to person, oriented to place , oriented to time, oriented to situation, CN II-XII grossly intact. ABSENT: motor sensory deficit Psychiatric exam: PRESENT: appropriate affect, normal mood. ABSENT: homicidal ideation, suicidal ideation Skin exam: PRESENT: dry, intact, warm. ABSENT: cyanosis, rash Results Laboratory Results: 07/05/18 04:00 07/05/18 04:00 07/05/18 07/05/18 04:00 04:00 WBC 11.3 H RBC 3.73 L Hgb 10.9 L Hct 32.8 L MCV 88 MCH 29.2 MCHC 33.3 RDW 18.3 H Plt Count 204 Seg Neutrophils % 70.6 Lymphocytes % 17.8 Monocytes % 9.0 Eosinophils % 2.0 Basophils % 0.6 Absolute Neutrophils 8.0 Absolute Lymphocytes 2.0 Absolute Monocytes 1.0 Absolute Eosinophils 0.2 Absolute Basophils 0.1 Sodium 141.6 Potassium 2.8 L* Chloride 105 Carbon Dioxide 26 Anion Gap 11 BUN 9 Creatinine 0.45 L Est GFR ( Amer) > 60 Est GFR (Non-Af Amer) > 60 Glucose 75 Calcium 8.5 Total Bilirubin 1.0 AST 22 ALT 45 Alkaline Phosphatase 44 Total Protein 5.4 L Albumin 2.6 L 06/20/18 06/20/18 06/20/18 05:45 05:45 05:45 Creatine Kinase 73 CK-MB (CK-2) 0.62 Troponin I 0.014 NT-Pro-B Natriuret Pep 64 06/20/18 06/20/18 06/20/18 10:30 10:30 10:30 Creatine Kinase 97 Cancelled CK-MB (CK-2) 1.25 Troponin I 0.154 NT-Pro-B Natriuret Pep 06/20/18 06/20/18 06/20/18 10:30 16:02 16:02 Creatine Kinase 78 CK-MB (CK-2) Cancelled 1.12 Troponin I Cancelled 0.132 NT-Pro-B Natriuret Pep 06/20/18 06/20/18 22:15 22:15 Creatine Kinase 63 CK-MB (CK-2) 1.00 Troponin I 0.101 NT-Pro-B Natriuret Pep Impressions: Guidance Fluoroscopy 06/11/18 00:00 IMPRESSION: SUCCESSFUL PLACEMENT OF A 5 FR DUAL LUMEN 13 9 CM PICC IN THE LEFT BASILIC VEIN. Interventional Vascular Procedure 06/11/18 00:00 IMPRESSION: SUCCESSFUL PLACEMENT OF A 5 FR DUAL LUMEN 13 9 CM PICC IN THE LEFT BASILIC VEIN. PICC Line Insertion 06/11/18 00:00 IMPRESSION: SUCCESSFUL PLACEMENT OF A 5 FR DUAL LUMEN 13 9 CM PICC IN THE LEFT BASILIC VEIN. Chest/Abdomen CTA 06/20/18 09:17 IMPRESSION: No CT angio evidence of acute pulmonary emboli. PICC line, endotracheal tube, nasogastric tube in good positioning. Bandlike airspace disease in the dependent portions of both lungs, likely atelectasis. Abdomen/Pelvis CT 06/28/18 00:00 IMPRESSION: Small pleural effusions. Bilateral airspace disease. Atelectasis versus pneumonia. Cholelithiasis. Diverticulosis. Head CT 06/28/18 00:00 IMPRESSION: NORMAL BRAIN CT WITHOUT CONTRAST. EVIDENCE OF ACUTE STROKE: NO. KUB X-Ray 06/28/18 00:00 IMPRESSION: Nasogastric tube tip and side port in the stomach. Stomach decompressed. Moderate stool in the colon. Otherwise unremarkable bowel gas pattern. Chest X-Ray 07/02/18 07:00 IMPRESSION: Persistent left retrocardiac consolidation atelectasis versus pneumonia Assessment & Plan - Diagnosis (1) Hypokalemia Is this a current diagnosis for this admission?: Yes Plan: Potassium and magnesium replace. Will switch to p.o. potassium daily. CMP for tomorrow. If electrolytes normal tomorrow patient will be transferred to a nursing facility where he has been accepted already (2) COPD (chronic obstructive pulmonary disease) Qualifiers: COPD type: chronic bronchitis Chronic bronchitis type: unspecified Qualified Code(s): J42 - Unspecified chronic bronchitis Is this a current diagnosis for this admission?: Yes Plan: Stable continue breathing treatment and steroids. (3) Chronic deep vein thrombosis (DVT) Is this a current diagnosis for this admission?: Yes Plan: Stable continue Xarelto. (4) Cellulitis of both lower extremities Is this a current diagnosis for this admission?: Yes
[2018-07-05] MEDS: MAGNESIUM SULFATE/D5W 1 GM/100 ML RTUPB IV SCH ×2 (18:03→19:59)
[2018-07-05] MEDS: MONTELUKAST SODIUM 10 MG TABLET NG SCH (22:23)
[2018-07-05] MEDS: MELATONIN 5 MG TABLET PO SCH (22:23)
[2018-07-05] MEDS: NORMAL SALINE 10 ML SDV (AFTER EACH USE) IV PRN (22:23)
[2018-07-05] MEDS: ATORVASTATIN CALCIUM 40 MG TABLET NG SCH (22:23)
[2018-07-06] MEDS: IPRATROPIUM/ALBUTEROL 0.5-2.5 MG/3 ML AMPUL NEB SCH ×4 (02:17→19:34)
[2018-07-06] MEDS: FLUTICASONE/SALMETEROL DISKUS 250-50 MCG/DOSE IH SCH ×2 (06:01→17:43)
[2018-07-06 07:02] LABS: ALANINE AMINOTRANSFERASE 47 U/L (21-72); ALBUMIN 2.7 g/dL (3.5-5.0); ALKALINE PHOSPHATASE 42 U/L (38-126); ANION GAP 9 (5-19); ASPARTATE AMINO TRANSFERASE 25 U/L (17-59); BILIRUBIN,DIRECT 0.3 mg/dL (0.0-0.4); BILIRUBIN,TOTAL 0.8 mg/dL (0.2-1.3); BLOOD UREA NITROGEN 8 mg/dL (7-20); CALCIUM 8.5 mg/dL (8.4-10.2); CARBON DIOXIDE 27 mmol/L (22-30); CHLORIDE 106 mmol/L (98-107); GLUCOSE 82 mg/dL (75-110); SODIUM 142.4 mmol/L (137-145); TOTAL PROTEIN 5.7 g/dL (6.3-8.2)
[2018-07-06] MEDS: ACETYLCYSTEINE 20% SOLN 800 MG/4 ML VIAL.NEB NEB SCH ×2 (07:55→19:34)
[2018-07-06 08:20] LABS: ABSOLUTE EOSINOPHILS # (AUTO) 0.3 10^3/uL (0.0-0.6); ABSOLUTE LYMPHOCYTES (AUTO) 1.8 10^3/uL (0.5-4.7); ABSOLUTE MONOCYTES (AUTO) 0.9 10^3/uL (0.1-1.4); ABSOLUTE NEUT (AUTO) 5.1 10^3/uL (1.7-8.2); BASOPHILS % (AUTO) 0.5 % (0-2); EOSINOPHILS % (AUTO) 3.7 % (0-6); HEMATOCRIT 31.8 % (37.9-51.0); HEMOGLOBIN 10.9 g/dL (13.5-17.0); LYMPHOCYTES % (AUTO) 21.9 % (13-45); MEAN CORPUSCULAR HEMOGLOBIN 30.8 pg (27.0-33.4); MEAN CORPUSCULAR HGB CONC 34.1 g/dL (32.0-36.0); MEAN CORPUSCULAR VOLUME 90 fl (80-97); MONOCYTES % (AUTO) 10.7 % (3-13); PLATELET COUNT 202 10^3/uL (150-450); RED BLOOD COUNT 3.52 10^6/uL (4.35-5.55); RED CELL DISTRIBUTION WIDTH 18.3 % (11.5-14.0); SEGMENTED NEUTROPHILS % (AUTO) 63.2 % (42-78); TOTAL CELLS COUNTED % (AUTO) 100 %; WHITE BLOOD COUNT 8.1 10^3/uL (4.0-10.5)
[2018-07-06] MEDS: LACTOBACILLUS ACIDOPHILUS 250 MG TAB NG SCH (08:50)
[2018-07-06] MEDS: CIPROFLOXACIN 400 MG/D5W RTU 400 MG/200 ML RTUPB IV SCH (10:03)
[2018-07-06] MEDS: CHOLECALCIFEROL (D3) 1,000 UNIT TABLET NG SCH (10:04)
[2018-07-06] MEDS: PREDNISONE 20 MG TABLET PO SCH (10:04)
[2018-07-06] MEDS: DOCUSATE SODIUM 100 MG CAPSULE PO SCH ×2 (10:04→17:32)
[2018-07-06] MEDS: CYANOCOBALAMIN (VITAMIN B-12) 1,000 MCG TABLET NG SCH (10:04)
[2018-07-06] MEDS: FOLIC ACID 1 MG TABLET NG SCH (10:04)
[2018-07-06] MEDS: MULTIVIT-STRESS FORMULA/ZINC TABLET NG SCH (10:04)
[2018-07-06] MEDS: POTASSIUM CHLORIDE 10 MEQ CAPSULE.ER PO SCH (10:09)
[2018-07-06] MEDS ORDERED: MAG HYDROX/AL HYDROX/SIMETH SUSP 30 ML UDCUP PO PRN (11:30)
[2018-07-06] MEDS: FLUTICASONE NASAL SPRAY 50 MCG/SPRY 120 SPRAY/16 GM NASL SCH ×2 (14:59→21:09)
--- NOTE | 2018-07-06 16:19 | PDOC PROGRESS REPORT ---
Subjective Progress Note for:: 07/06/18 Subjective:: No acute events overnight. Patient has had 3 episodes of watery diarrhea since last night. Denies any fever chills nausea vomiting abdominal pain chest pain shortness of breath. . Reason For Visit: LOWER EXTREMITIES CELLULITIS Physical Exam Vital Signs: Temp Pulse Resp BP Pulse Ox 98.1 F 94 18 134/86 H 97 07/06/18 07:23 07/06/18 14:51 07/06/18 13:27 07/06/18 07:23 07/06/18 13:27 Intake & Output 07/05/18 07/06/18 07/07/18 06:59 06:59 06:59 Intake Total 818 650 100 Output Total 1525 1460 300 Balance -707 -810 -200 Weight 117.1 kg 115.1 kg General appearance: PRESENT: no acute distress, well-developed, well-nourished Head exam: PRESENT: atraumatic, normocephalic Eye exam: PRESENT: conjunctiva pink, EOMI, PERRLA. ABSENT: scleral icterus Ear exam: PRESENT: normal external ear exam Mouth exam: PRESENT: moist, tongue midline Neck exam: ABSENT: carotid bruit, JVD, lymphadenopathy, thyromegaly Respiratory exam: PRESENT: clear to auscultation lui. ABSENT: rales, rhonchi, wheezes Cardiovascular exam: PRESENT: RRR. ABSENT: diastolic murmur, rubs, systolic murmur Pulses: PRESENT: normal dorsalis pedis pul Vascular exam: PRESENT: normal capillary refill GI/Abdominal exam: PRESENT: normal bowel sounds, soft. ABSENT: distended, guarding, mass, organolmegaly, rebound, tenderness Rectal exam: PRESENT: deferred Extremities exam: PRESENT: full ROM, +2 edema - RLE. ABSENT: calf tenderness, clubbing, pedal edema Neurological exam: PRESENT: alert, awake, oriented to person, oriented to place , oriented to time, oriented to situation, CN II-XII grossly intact. ABSENT: motor sensory deficit Psychiatric exam: PRESENT: appropriate affect, normal mood. ABSENT: homicidal ideation, suicidal ideation Skin exam: PRESENT: dry, intact, warm. ABSENT: cyanosis, rash Results Laboratory Results: 07/06/18 06:05 07/06/18 06:05 07/06/18 07/06/18 07/06/18 06:05 06:05 06:05 WBC 8.1 RBC 3.52 L Hgb 10.9 L Hct 31.8 L MCV 90 MCH 30.8 MCHC 34.1 RDW 18.3 H Plt Count 202 Seg Neutrophils % 63.2 Lymphocytes % 21.9 Monocytes % 10.7 Eosinophils % 3.7 Basophils % 0.5 Absolute Neutrophils 5.1 Absolute Lymphocytes 1.8 Absolute Monocytes 0.9 Absolute Eosinophils 0.3 Absolute Basophils 0.0 Sodium 142.4 Potassium 3.0 L* Chloride 106 Carbon Dioxide 27 Anion Gap 9 BUN 8 Creatinine 0.44 L Est GFR ( Amer) > 60 Est GFR (Non-Af Amer) > 60 Glucose 82 Calcium 8.5 Phosphorus 3.0 Magnesium 2.0 Total Bilirubin 0.8 AST 25 ALT 47 Alkaline Phosphatase 42 Total Protein 5.7 L Albumin 2.7 L 06/20/18 06/20/18 06/20/18 05:45 05:45 05:45 Creatine Kinase 73 CK-MB (CK-2) 0.62 Troponin I 0.014 NT-Pro-B Natriuret Pep 64 06/20/18 06/20/18 06/20/18 10:30 10:30 10:30 Creatine Kinase 97 Cancelled CK-MB (CK-2) 1.25 Troponin I 0.154 NT-Pro-B Natriuret Pep 06/20/18 06/20/18 06/20/18 10:30 16:02 16:02 Creatine Kinase 78 CK-MB (CK-2) Cancelled 1.12 Troponin I Cancelled 0.132 NT-Pro-B Natriuret Pep 06/20/18 06/20/18 22:15 22:15 Creatine Kinase 63 CK-MB (CK-2) 1.00 Troponin I 0.101 NT-Pro-B Natriuret Pep Impressions: Guidance Fluoroscopy 06/11/18 00:00 IMPRESSION: SUCCESSFUL PLACEMENT OF A 5 FR DUAL LUMEN 13 9 CM PICC IN THE LEFT BASILIC VEIN. Interventional Vascular Procedure 06/11/18 00:00 IMPRESSION: SUCCESSFUL PLACEMENT OF A 5 FR DUAL LUMEN 13 9 CM PICC IN THE LEFT BASILIC VEIN. PICC Line Insertion 06/11/18 00:00 IMPRESSION: SUCCESSFUL PLACEMENT OF A 5 FR DUAL LUMEN 13 9 CM PICC IN THE LEFT BASILIC VEIN. Chest/Abdomen CTA 06/20/18 09:17 IMPRESSION: No CT angio evidence of acute pulmonary emboli. PICC line, endotracheal tube, nasogastric tube in good positioning. Bandlike airspace disease in the dependent portions of both lungs, likely atelectasis. Abdomen/Pelvis CT 06/28/18 00:00 IMPRESSION: Small pleural effusions. Bilateral airspace disease. Atelectasis versus pneumonia. Cholelithiasis. Diverticulosis. Head CT 06/28/18 00:00 IMPRESSION: NORMAL BRAIN CT WITHOUT CONTRAST. EVIDENCE OF ACUTE STROKE: NO. KUB X-Ray 06/28/18 00:00 IMPRESSION: Nasogastric tube tip and side port in the stomach. Stomach decompressed. Moderate stool in the colon. Otherwise unremarkable bowel gas pattern. Chest X-Ray 07/02/18 07:00 IMPRESSION: Persistent left retrocardiac consolidation atelectasis versus pneumonia Assessment & Plan - Diagnosis (1) Hypokalemia Is this a current diagnosis for this admission?: Yes Plan: Replace as needed. Continue daily p.o. potassium. CMP for tomorrow. If electrolytes normal tomorrow patient will be transferred to a nursing facility where he has been accepted already (2) COPD (chronic obstructive pulmonary disease) Qualifiers: COPD type: chronic bronchitis Chronic bronchitis type: unspecified Qualified Code(s): J42 - Unspecified chronic bronchitis Is this a current diagnosis for this admission?: Yes Plan: Stable continue breathing treatment. (3) Chronic deep vein thrombosis (DVT) Is this a current diagnosis for this admission?: Yes Plan: Stable continue Xarelto. (4) Cellulitis of both lower extremities Is this a current diagnosis for this admission?: Yes Plan: Hold antibiotics due to patient developing diarrhea. Blood cultures have been negative since 06/24/2018
[2018-07-06] MEDS: RIVAROXABAN 10 MG TABLET PO SCH (17:43)
[2018-07-06] MEDS: ACETAMINOPHEN 325 MG TABLET PO PRN (21:09)
[2018-07-06] MEDS: MELATONIN 5 MG TABLET PO SCH (21:09)
[2018-07-06] MEDS: MONTELUKAST SODIUM 10 MG TABLET PO SCH (21:09)
[2018-07-06] MEDS: ATORVASTATIN CALCIUM 40 MG TABLET PO SCH (21:10)
[2018-07-07] MEDS: IPRATROPIUM/ALBUTEROL 0.5-2.5 MG/3 ML AMPUL NEB SCH ×4 (03:56→19:43)
[2018-07-07 07:04] LABS: ABSOLUTE EOSINOPHILS # (AUTO) 0.2 10^3/uL (0.0-0.6); ABSOLUTE MONOCYTES (AUTO) 0.8 10^3/uL (0.1-1.4); ABSOLUTE NEUT (AUTO) 4.2 10^3/uL (1.7-8.2); BASOPHILS % (AUTO) 0.5 % (0-2); EOSINOPHILS % (AUTO) 2.1 % (0-6); HEMATOCRIT 33.5 % (37.9-51.0); HEMOGLOBIN 11.3 g/dL (13.5-17.0); LYMPHOCYTES % (AUTO) 27.1 % (13-45); MEAN CORPUSCULAR HEMOGLOBIN 29.8 pg (27.0-33.4); MEAN CORPUSCULAR HGB CONC 33.7 g/dL (32.0-36.0); MEAN CORPUSCULAR VOLUME 89 fl (80-97); MONOCYTES % (AUTO) 11.4 % (3-13); PLATELET COUNT 199 10^3/uL (150-450); RED BLOOD COUNT 3.78 10^6/uL (4.35-5.55); RED CELL DISTRIBUTION WIDTH 18.1 % (11.5-14.0); SEGMENTED NEUTROPHILS % (AUTO) 58.9 % (42-78); TOTAL CELLS COUNTED % (AUTO) 100 %; WHITE BLOOD COUNT 7.2 10^3/uL (4.0-10.5)
[2018-07-07 07:24] LABS: ALANINE AMINOTRANSFERASE 54 U/L (21-72); ALBUMIN 2.9 g/dL (3.5-5.0); ALKALINE PHOSPHATASE 45 U/L (38-126); ANION GAP 8 (5-19); ASPARTATE AMINO TRANSFERASE 31 U/L (17-59); BILIRUBIN,DIRECT 0.3 mg/dL (0.0-0.4); BILIRUBIN,TOTAL 0.9 mg/dL (0.2-1.3); BLOOD UREA NITROGEN 10 mg/dL (7-20); CALCIUM 8.8 mg/dL (8.4-10.2); CARBON DIOXIDE 27 mmol/L (22-30); CHLORIDE 107 mmol/L (98-107); GLUCOSE 89 mg/dL (75-110); PHOSPHORUS 2.9 mg/dL (2.5-4.5); POTASSIUM 3.3 mmol/L (3.6-5.0); SODIUM 142.3 mmol/L (137-145); TOTAL PROTEIN 6.1 g/dL (6.3-8.2)
[2018-07-07] MEDS: FLUTICASONE/SALMETEROL DISKUS 250-50 MCG/DOSE IH SCH ×2 (07:57→17:32)
[2018-07-07] MEDS ORDERED: LACTOBACILLUS ACIDOPHILUS 250 MG TAB PO SCH (08:00)
[2018-07-07] MEDS: ACETYLCYSTEINE 20% SOLN 800 MG/4 ML VIAL.NEB NEB SCH ×2 (08:39→19:43)
[2018-07-07] MEDS: MULTIVIT-STRESS FORMULA/ZINC TABLET PO SCH (10:51)
[2018-07-07] MEDS: POTASSIUM CHLORIDE 10 MEQ CAPSULE.ER PO SCH (10:51)
[2018-07-07] MEDS: CHOLECALCIFEROL (D3) 1,000 UNIT TABLET PO SCH (10:51)
[2018-07-07] MEDS: FOLIC ACID 1 MG TABLET PO SCH (10:52)
[2018-07-07] MEDS: PREDNISONE 20 MG TABLET PO SCH (10:52)
[2018-07-07] MEDS: VANCOMYCIN HCL INJ 500 MG VIAL PO SCH ×3 (10:52→21:36)
[2018-07-07] MEDS: FLUTICASONE NASAL SPRAY 50 MCG/SPRY 120 SPRAY/16 GM NASL SCH ×2 (10:52→21:35)
[2018-07-07] MEDS: CYANOCOBALAMIN (VITAMIN B-12) 1,000 MCG TABLET PO SCH (10:54)
[2018-07-07] MEDS: DOCUSATE SODIUM 100 MG CAPSULE PO SCH (11:35)
--- NOTE | 2018-07-07 12:34 | PDOC PROGRESS REPORT ---
Subjective Progress Note for:: 07/07/18 Subjective:: No acute events overnight. Patient have had 2 episodes of diarrhea. No fever chills nausea vomiting chest pain shortness of breath or abdominal pain. Reason For Visit: LOWER EXTREMITIES CELLULITIS Physical Exam Vital Signs: Temp Pulse Resp BP Pulse Ox 98.0 F 91 23 H 114/70 95 07/07/18 11:44 07/07/18 11:44 07/07/18 11:44 07/07/18 11:44 07/07/18 11:44 Intake & Output 07/06/18 07/07/18 07/08/18 06:59 06:59 06:59 Intake Total 650 600 237 Output Total 1460 1050 200 Balance -810 -450 37 Weight 115.1 kg 113.7 kg General appearance: PRESENT: no acute distress, well-developed, well-nourished Head exam: PRESENT: atraumatic, normocephalic Respiratory exam: PRESENT: clear to auscultation lui. ABSENT: rales, rhonchi, wheezes Cardiovascular exam: PRESENT: RRR. ABSENT: diastolic murmur, rubs, systolic murmur Pulses: PRESENT: normal carotid pulses, normal radial pulses GI/Abdominal exam: PRESENT: normal bowel sounds, soft. ABSENT: distended, guarding, mass, organolmegaly, rebound, tenderness Extremities exam: PRESENT: +2 edema - RLE Results Laboratory Results: 07/07/18 06:42 07/07/18 06:42 07/06/18 07/06/18 07/07/18 06:05 17:05 03:07 WBC RBC Hgb Hct MCV MCH MCHC RDW Plt Count Seg Neutrophils % Lymphocytes % Monocytes % Eosinophils % Basophils % Absolute Neutrophils Absolute Lymphocytes Absolute Monocytes Absolute Eosinophils Absolute Basophils Sodium Potassium 3.6 Chloride Carbon Dioxide Anion Gap BUN Creatinine Est GFR ( Amer) Est GFR (Non-Af Amer) Glucose Calcium Phosphorus Magnesium 2.0 Total Bilirubin AST ALT Alkaline Phosphatase Total Protein Albumin Stool for White Cells NO WBCs SEEN 07/07/18 07/07/18 06:42 06:42 WBC 7.2 RBC 3.78 L Hgb 11.3 L Hct 33.5 L MCV 89 MCH 29.8 MCHC 33.7 RDW 18.1 H Plt Count 199 Seg Neutrophils % 58.9 Lymphocytes % 27.1 Monocytes % 11.4 Eosinophils % 2.1 Basophils % 0.5 Absolute Neutrophils 4.2 Absolute Lymphocytes 2.0 Absolute Monocytes 0.8 Absolute Eosinophils 0.2 Absolute Basophils 0.0 Sodium 142.3 Potassium 3.3 L Chloride 107 Carbon Dioxide 27 Anion Gap 8 BUN 10 Creatinine 0.44 L Est GFR ( Amer) > 60 Est GFR (Non-Af Amer) > 60 Glucose 89 Calcium 8.8 Phosphorus 2.9 Magnesium 1.8 Total Bilirubin 0.9 AST 31 ALT 54 Alkaline Phosphatase 45 Total Protein 6.1 L Albumin 2.9 L Stool for White Cells 06/20/18 06/20/18 06/20/18 05:45 05:45 05:45 Creatine Kinase 73 CK-MB (CK-2) 0.62 Troponin I 0.014 NT-Pro-B Natriuret Pep 64 06/20/18 06/20/18 06/20/18 10:30 10:30 10:30 Creatine Kinase 97 Cancelled CK-MB (CK-2) 1.25 Troponin I 0.154 NT-Pro-B Natriuret Pep 06/20/18 06/20/18 06/20/18 10:30 16:02 16:02 Creatine Kinase 78 CK-MB (CK-2) Cancelled 1.12 Troponin I Cancelled 0.132 NT-Pro-B Natriuret Pep 06/20/18 06/20/18 22:15 22:15 Creatine Kinase 63 CK-MB (CK-2) 1.00 Troponin I 0.101 NT-Pro-B Natriuret Pep Impressions: Guidance Fluoroscopy 06/11/18 00:00 IMPRESSION: SUCCESSFUL PLACEMENT OF A 5 FR DUAL LUMEN 13 9 CM PICC IN THE LEFT BASILIC VEIN. Interventional Vascular Procedure 06/11/18 00:00 IMPRESSION: SUCCESSFUL PLACEMENT OF A 5 FR DUAL LUMEN 13 9 CM PICC IN THE LEFT BASILIC VEIN. PICC Line Insertion 06/11/18 00:00 IMPRESSION: SUCCESSFUL PLACEMENT OF A 5 FR DUAL LUMEN 13 9 CM PICC IN THE LEFT BASILIC VEIN. Chest/Abdomen CTA 06/20/18 09:17 IMPRESSION: No CT angio evidence of acute pulmonary emboli. PICC line, endotracheal tube, nasogastric tube in good positioning. Bandlike airspace disease in the dependent portions of both lungs, likely atelectasis. Abdomen/Pelvis CT 06/28/18 00:00 IMPRESSION: Small pleural effusions. Bilateral airspace disease. Atelectasis versus pneumonia. Cholelithiasis. Diverticulosis. Head CT 06/28/18 00:00 IMPRESSION: NORMAL BRAIN CT WITHOUT CONTRAST. EVIDENCE OF ACUTE STROKE: NO. KUB X-Ray 06/28/18 00:00 IMPRESSION: Nasogastric tube tip and side port in the stomach. Stomach decompressed. Moderate stool in the colon. Otherwise unremarkable bowel gas pattern. Chest X-Ray 07/02/18 07:00 IMPRESSION: Persistent left retrocardiac consolidation atelectasis versus pneumonia Assessment & Plan - Diagnosis (1) Hypokalemia Is this a current diagnosis for this admission?: Yes Plan: Replace as needed. Continue daily p.o. potassium. CMP for tomorrow. (2) COPD (chronic obstructive pulmonary disease) Qualifiers: COPD type: chronic bronchitis Chronic bronchitis type: unspecified Qualified Code(s): J42 - Unspecified chronic bronchitis Is this a current diagnosis for this admission?: Yes Plan: Continue nightly BiPAP. Nebs treatments. (3) Chronic deep vein thrombosis (DVT) Qualifiers: Laterality: unspecified laterality Is this a current diagnosis for this admission?: Yes Plan: Continue Xarelto. (4) Cellulitis of both lower extremities Is this a current diagnosis for this admission?: Yes Plan: DC Cipro. Patient is developing diarrhea. Positive C. difficile colitis.. Blood cultures have been negative since 06/24/2018 (5) C. difficile colitis Is this a current diagnosis for this admission?: No Plan: Stop ciprofloxacin. This start p.o. vancomycin. Continue contact precautions.
[2018-07-07 14:21] LABS: ABSOLUTE EOSINOPHILS # (AUTO) 0.1 10^3/uL (0.0-0.6); ABSOLUTE LYMPHOCYTES (AUTO) 0.6 10^3/uL (0.5-4.7); ABSOLUTE MONOCYTES (AUTO) 0.6 10^3/uL (0.1-1.4); ABSOLUTE NEUT (AUTO) 10.6 10^3/uL (1.7-8.2); BASOPHILS % (AUTO) 0.2 % (0-2); EOSINOPHILS % (AUTO) 0.9 % (0-6); HEMATOCRIT 32.5 % (37.9-51.0); HEMOGLOBIN 10.9 g/dL (13.5-17.0); LYMPHOCYTES % (AUTO) 5.4 % (13-45); MEAN CORPUSCULAR HEMOGLOBIN 29.4 pg (27.0-33.4); MEAN CORPUSCULAR HGB CONC 33.7 g/dL (32.0-36.0); MEAN CORPUSCULAR VOLUME 87 fl (80-97); MONOCYTES % (AUTO) 4.7 % (3-13); PLATELET COUNT 204 10^3/uL (150-450); RED BLOOD COUNT 3.72 10^6/uL (4.35-5.55); SEGMENTED NEUTROPHILS % (AUTO) 88.8 % (42-78); TOTAL CELLS COUNTED % (AUTO) 100 %; WHITE BLOOD COUNT 11.9 10^3/uL (4.0-10.5)
[2018-07-07 14:41] LABS: ALANINE AMINOTRANSFERASE 53 U/L (21-72); ALKALINE PHOSPHATASE 48 U/L (38-126); ANION GAP 10 (5-19); ASPARTATE AMINO TRANSFERASE 34 U/L (17-59); BILIRUBIN,DIRECT 0.3 mg/dL (0.0-0.4); BILIRUBIN,TOTAL 0.7 mg/dL (0.2-1.3); BLOOD UREA NITROGEN 11 mg/dL (7-20); CARBON DIOXIDE 28 mmol/L (22-30); CHLORIDE 105 mmol/L (98-107); GLUCOSE 112 mg/dL (75-110); POTASSIUM 3.4 mmol/L (3.6-5.0); SODIUM 142.5 mmol/L (137-145); TOTAL PROTEIN 6.1 g/dL (6.3-8.2)
[2018-07-07] MEDS: RIVAROXABAN 10 MG TABLET PO SCH (17:32)
[2018-07-07 20:49] LABS: APPEARANCE,URINE TURBID; BILIRUBIN,URINE NEGATIVE (NEGATIVE); GLUCOSE, URINE NEGATIVE (NEGATIVE); KETONES,URINE NEGATIVE (NEGATIVE); LEUKOCYTE ESTERASE,URINE NEGATIVE (NEGATIVE); NITRITE,URINE NEGATIVE (NEGATIVE); PROTEIN,URINE NEGATIVE (NEGATIVE); URINE SPECIFIC GRAVITY 1.023; UROBILINOGEN,URINE NEGATIVE mg/dL (<2.0)
[2018-07-07 20:51] LABS: COLOR,URINE DARK YELLOW
[2018-07-07] MEDS: ACETAMINOPHEN 325 MG TABLET PO PRN (21:34)
[2018-07-07] MEDS: NORMAL SALINE 10 ML SDV (AFTER EACH USE) IV PRN (21:34)
[2018-07-07] MEDS: ATORVASTATIN CALCIUM 40 MG TABLET PO SCH (21:35)
[2018-07-07] MEDS: MONTELUKAST SODIUM 10 MG TABLET PO SCH (21:35)
[2018-07-07] MEDS: MELATONIN 5 MG TABLET PO SCH (21:36)
[2018-07-08 00:51] LABS: ARTERIAL BLOOD H2CO3 1.15 mmol/L (1.05-1.35); ARTERIAL BLOOD O2 SATURATION 95.6 % (94-98); ARTERIAL BLOOD PCO2 38.2 mmHg (35-45); ARTERIAL BLOOD PH 7.45 (7.35-7.45); ARTERIAL BLOOD PO2 74.4 mmHg (80-100); ARTERIAL BLOOD TOTAL CO2 27.1 mmol/L (23-27)
[2018-07-08 00:52] LABS: ARTERIAL BLOOD FIO2 35%
[2018-07-08] MEDS ORDERED: HALOPERIDOL LACTATE INJ 5 MG/1 ML VIAL ONE (01:15)
[2018-07-08] MEDS ORDERED: HALOPERIDOL LACTATE INJ 5 MG/1 ML VIAL IV ONE (01:30)
[2018-07-08] MEDS: IPRATROPIUM/ALBUTEROL 0.5-2.5 MG/3 ML AMPUL NEB SCH ×4 (02:28→19:39)
[2018-07-08] MEDS: VANCOMYCIN HCL INJ 500 MG VIAL PO SCH ×4 (04:19→21:37)
[2018-07-08] MEDS: ACETYLCYSTEINE 20% SOLN 800 MG/4 ML VIAL.NEB NEB SCH (08:07)
[2018-07-08 08:35] LABS: HEMATOCRIT 33.9 % (37.9-51.0); HEMOGLOBIN 11.5 g/dL (13.5-17.0); MEAN CORPUSCULAR HEMOGLOBIN 30.1 pg (27.0-33.4); MEAN CORPUSCULAR HGB CONC 34.1 g/dL (32.0-36.0); MEAN CORPUSCULAR VOLUME 88 fl (80-97); PLATELET COUNT 196 10^3/uL (150-450); RED BLOOD COUNT 3.83 10^6/uL (4.35-5.55); RED CELL DISTRIBUTION WIDTH 18.4 % (11.5-14.0); WHITE BLOOD COUNT 6.8 10^3/uL (4.0-10.5)
[2018-07-08] MEDS: FLUTICASONE/SALMETEROL DISKUS 250-50 MCG/DOSE IH SCH ×2 (08:51→18:36)
[2018-07-08 08:52] LABS: ALANINE AMINOTRANSFERASE 50 U/L (21-72); ALBUMIN 3.1 g/dL (3.5-5.0); ALKALINE PHOSPHATASE 48 U/L (38-126); ANION GAP 9 (5-19); ASPARTATE AMINO TRANSFERASE 29 U/L (17-59); BILIRUBIN,DIRECT 0.4 mg/dL (0.0-0.4); BILIRUBIN,TOTAL 0.9 mg/dL (0.2-1.3); BLOOD UREA NITROGEN 13 mg/dL (7-20); CALCIUM 9.2 mg/dL (8.4-10.2); CARBON DIOXIDE 30 mmol/L (22-30); CHLORIDE 106 mmol/L (98-107); GLUCOSE 94 mg/dL (75-110); POTASSIUM 3.4 mmol/L (3.6-5.0); SODIUM 144.6 mmol/L (137-145); TOTAL PROTEIN 6.5 g/dL (6.3-8.2)
[2018-07-08] MEDS: FLUTICASONE NASAL SPRAY 50 MCG/SPRY 120 SPRAY/16 GM NASL SCH ×2 (09:58→21:38)
[2018-07-08] MEDS: CHOLECALCIFEROL (D3) 1,000 UNIT TABLET PO SCH (09:58)
[2018-07-08] MEDS: FOLIC ACID 1 MG TABLET PO SCH (09:59)
[2018-07-08] MEDS: CYANOCOBALAMIN (VITAMIN B-12) 1,000 MCG TABLET PO SCH (09:59)
[2018-07-08] MEDS: PREDNISONE 20 MG TABLET PO SCH (09:59)
[2018-07-08] MEDS: MULTIVIT-STRESS FORMULA/ZINC TABLET PO SCH (09:59)
[2018-07-08] MEDS: POTASSIUM CHLORIDE 10 MEQ CAPSULE.ER PO SCH (09:59)
--- NOTE | 2018-07-08 10:43 | PDOC PROGRESS REPORT ---
Subjective Progress Note for:: 07/08/18 Subjective:: No acute events overnight. No more diarrhea overnight. Denies having any pain in her lower extremity or any increased swelling in his lower extremity. Denies fever chills nausea vomiting pain shortness of breath diarrhea constipation or any urinary symptoms. Reason For Visit: LOWER EXTREMITIES CELLULITIS Physical Exam Vital Signs: Temp Pulse Resp BP Pulse Ox 98.0 F 94 20 112/76 99 07/08/18 08:56 07/08/18 08:56 07/08/18 08:56 07/08/18 08:56 07/08/18 08:56 Intake & Output 07/07/18 07/08/18 07/09/18 06:59 06:59 06:59 Intake Total 600 711 Output Total 1050 700 Balance -450 11 Weight 113.7 kg 113.9 kg General appearance: PRESENT: no acute distress, well-developed, well-nourished Head exam: PRESENT: atraumatic, normocephalic Eye exam: PRESENT: conjunctiva pink, EOMI, PERRLA. ABSENT: scleral icterus Ear exam: PRESENT: normal external ear exam Mouth exam: PRESENT: moist, tongue midline Neck exam: ABSENT: carotid bruit, JVD, lymphadenopathy, thyromegaly Respiratory exam: PRESENT: clear to auscultation lui. ABSENT: rales, rhonchi, wheezes Cardiovascular exam: PRESENT: RRR. ABSENT: diastolic murmur, rubs, systolic murmur Pulses: PRESENT: normal dorsalis pedis pul Vascular exam: PRESENT: normal capillary refill GI/Abdominal exam: PRESENT: normal bowel sounds, soft. ABSENT: distended, guarding, mass, organolmegaly, rebound, tenderness Rectal exam: PRESENT: deferred Extremities exam: PRESENT: full ROM, +2 edema - Chronic. RLE. History of Lymphedema. ABSENT: calf tenderness, clubbing, pedal edema Neurological exam: PRESENT: alert, awake, oriented to person, oriented to place , oriented to time, oriented to situation, CN II-XII grossly intact. ABSENT: motor sensory deficit Psychiatric exam: PRESENT: appropriate affect, normal mood. ABSENT: homicidal ideation, suicidal ideation Skin exam: PRESENT: dry, intact, warm. ABSENT: cyanosis, rash Results Laboratory Results: 07/08/18 07:35 07/08/18 07:35 07/07/18 07/07/18 07/07/18 13:25 13:25 20:15 WBC 11.9 H RBC 3.72 L Hgb 10.9 L Hct 32.5 L MCV 87 MCH 29.4 MCHC 33.7 RDW 18.0 H Plt Count 204 Seg Neutrophils % 88.8 H Lymphocytes % 5.4 L Monocytes % 4.7 Eosinophils % 0.9 Basophils % 0.2 Absolute Neutrophils 10.6 H Absolute Lymphocytes 0.6 Absolute Monocytes 0.6 Absolute Eosinophils 0.1 Absolute Basophils 0.0 Carbonic Acid HCO3/H2CO3 Ratio ABG pH ABG pCO2 ABG pO2 ABG HCO3 ABG O2 Saturation ABG Base Excess FiO2 Sodium 142.5 Potassium 3.4 L Chloride 105 Carbon Dioxide 28 Anion Gap 10 BUN 11 Creatinine 0.45 L Est GFR ( Amer) > 60 Est GFR (Non-Af Amer) > 60 Glucose 112 H Calcium 9.0 Magnesium 1.8 Total Bilirubin 0.7 AST 34 ALT 53 Alkaline Phosphatase 48 Total Protein 6.1 L Albumin 3.0 L Urine Color DARK YELLOW Urine Appearance TURBID Urine pH 5.0 Ur Specific [place] 1.023 Urine Protein NEGATIVE Urine Glucose (UA) NEGATIVE Urine Ketones NEGATIVE Urine Blood LARGE H Urine Nitrite NEGATIVE Ur Leukocyte Esterase NEGATIVE Urine WBC (Auto) 14 Urine RBC (Auto) 79 07/08/18 07/08/18 07/08/18 00:15 07:35 07:35 WBC 6.8 RBC 3.83 L Hgb 11.5 L Hct 33.9 L MCV 88 MCH 30.1 MCHC 34.1 RDW 18.4 H Plt Count 196 Seg Neutrophils % Lymphocytes % Monocytes % Eosinophils % Basophils % Absolute Neutrophils Absolute Lymphocytes Absolute Monocytes Absolute Eosinophils Absolute Basophils Carbonic Acid 1.15 HCO3/H2CO3 Ratio 22:1 ABG pH 7.45 ABG pCO2 38.2 ABG pO2 74.4 L ABG HCO3 26.0 ABG O2 Saturation 95.6 ABG Base Excess 2.0 FiO2 35% Sodium 144.6 Potassium 3.4 L Chloride 106 Carbon Dioxide 30 Anion Gap 9 BUN 13 Creatinine 0.48 L Est GFR ( Amer) > 60 Est GFR (Non-Af Amer) > 60 Glucose 94 Calcium 9.2 Magnesium 1.8 Total Bilirubin 0.9 AST 29 ALT 50 Alkaline Phosphatase 48 Total Protein 6.5 Albumin 3.1 L Urine Color Urine Appearance Urine pH Ur Specific [place] Urine Protein Urine Glucose (UA) Urine Ketones Urine Blood Urine Nitrite Ur Leukocyte Esterase Urine WBC (Auto) Urine RBC (Auto) 06/20/18 06/20/18 06/20/18 05:45 05:45 05:45 Creatine Kinase 73 CK-MB (CK-2) 0.62 Troponin I 0.014 NT-Pro-B Natriuret Pep 64 06/20/18 06/20/18 06/20/18 10:30 10:30 10:30 Creatine Kinase 97 Cancelled CK-MB (CK-2) 1.25 Troponin I 0.154 NT-Pro-B Natriuret Pep 06/20/18 06/20/18 06/20/18 10:30 16:02 16:02 Creatine Kinase 78 CK-MB (CK-2) Cancelled 1.12 Troponin I Cancelled 0.132 NT-Pro-B Natriuret Pep 06/20/18 06/20/18 22:15 22:15 Creatine Kinase 63 CK-MB (CK-2) 1.00 Troponin I 0.101 NT-Pro-B Natriuret Pep Impressions: Guidance Fluoroscopy 06/11/18 00:00 IMPRESSION: SUCCESSFUL PLACEMENT OF A 5 FR DUAL LUMEN 13 9 CM PICC IN THE LEFT BASILIC VEIN. Interventional Vascular Procedure 06/11/18 00:00 IMPRESSION: SUCCESSFUL PLACEMENT OF A 5 FR DUAL LUMEN 13 9 CM PICC IN THE LEFT BASILIC VEIN. PICC Line Insertion 06/11/18 00:00 IMPRESSION: SUCCESSFUL PLACEMENT OF A 5 FR DUAL LUMEN 13 9 CM PICC IN THE LEFT BASILIC VEIN. Chest/Abdomen CTA 06/20/18 09:17 IMPRESSION: No CT angio evidence of acute pulmonary emboli. PICC line, endotracheal tube, nasogastric tube in good positioning. Bandlike airspace disease in the dependent portions of both lungs, likely atelectasis. Abdomen/Pelvis CT 06/28/18 00:00 IMPRESSION: Small pleural effusions. Bilateral airspace disease. Atelectasis versus pneumonia. Cholelithiasis. Diverticulosis. Head CT 06/28/18 00:00 IMPRESSION: NORMAL BRAIN CT WITHOUT CONTRAST. EVIDENCE OF ACUTE STROKE: NO. KUB X-Ray 06/28/18 00:00 IMPRESSION: Nasogastric tube tip and side port in the stomach. Stomach decompressed. Moderate stool in the colon. Otherwise unremarkable bowel gas pattern. Chest X-Ray 07/02/18 07:00 IMPRESSION: Persistent left retrocardiac consolidation atelectasis versus pneumonia Assessment & Plan - Diagnosis (1) Hypokalemia Is this a current diagnosis for this admission?: Yes Plan: Replace as needed. Continue daily p.o. potassium. CMP for tomorrow. (2) COPD (chronic obstructive pulmonary disease) Qualifiers: COPD type: chronic bronchitis Chronic bronchitis type: unspecified Qualified Code(s): J42 - Unspecified chronic bronchitis Is this a current diagnosis for this admission?: Yes Plan: Continue nightly BiPAP. Nebs treatments. Prednisone 5 out of 5. DC steroids. (3) Chronic deep vein thrombosis (DVT) Qualifiers: Laterality: unspecified laterality Is this a current diagnosis for this admission?: Yes Plan: Continue Xarelto. (4) Cellulitis of both lower extremities Is this a current diagnosis for this admission?: Yes (5) C. difficile colitis Is this a current diagnosis for this admission?: No Plan: Diarrhea resolved. Continue vancomycin. Continue contact precautions.
[2018-07-08] MEDS: RIVAROXABAN 10 MG TABLET PO SCH (18:36)
[2018-07-08] MEDS: ACETAMINOPHEN 325 MG TABLET PO PRN (21:36)
[2018-07-08] MEDS: ATORVASTATIN CALCIUM 40 MG TABLET PO SCH (21:37)
[2018-07-08] MEDS: MONTELUKAST SODIUM 10 MG TABLET PO SCH (21:37)
[2018-07-08] MEDS: MELATONIN 5 MG TABLET PO SCH (21:37)
[2018-07-09] MEDS: IPRATROPIUM/ALBUTEROL 0.5-2.5 MG/3 ML AMPUL NEB SCH ×3 (02:44→14:04)
[2018-07-09] MEDS: ACETAMINOPHEN 325 MG TABLET PO PRN (04:34)
[2018-07-09] MEDS: VANCOMYCIN HCL INJ 500 MG VIAL PO SCH ×2 (04:34→09:33)
[2018-07-09 05:17] LABS: ABSOLUTE BASOPHILS # (AUTO) 0.1 10^3/uL (0.0-0.2); ABSOLUTE EOSINOPHILS # (AUTO) 0.1 10^3/uL (0.0-0.6); ABSOLUTE LYMPHOCYTES (AUTO) 2.2 10^3/uL (0.5-4.7); ABSOLUTE MONOCYTES (AUTO) 0.7 10^3/uL (0.1-1.4); ABSOLUTE NEUT (AUTO) 4.2 10^3/uL (1.7-8.2); BASOPHILS % (AUTO) 0.8 % (0-2); EOSINOPHILS % (AUTO) 1.6 % (0-6); HEMATOCRIT 31.7 % (37.9-51.0); HEMOGLOBIN 10.7 g/dL (13.5-17.0); LYMPHOCYTES % (AUTO) 30.6 % (13-45); MEAN CORPUSCULAR HEMOGLOBIN 29.8 pg (27.0-33.4); MEAN CORPUSCULAR HGB CONC 33.8 g/dL (32.0-36.0); MEAN CORPUSCULAR VOLUME 88 fl (80-97); PLATELET COUNT 196 10^3/uL (150-450); RED CELL DISTRIBUTION WIDTH 18.3 % (11.5-14.0); TOTAL CELLS COUNTED % (AUTO) 100 %; WHITE BLOOD COUNT 7.3 10^3/uL (4.0-10.5)
[2018-07-09 05:34] LABS: ALANINE AMINOTRANSFERASE 50 U/L (21-72); ALKALINE PHOSPHATASE 44 U/L (38-126); ANION GAP 11 (5-19); ASPARTATE AMINO TRANSFERASE 26 U/L (17-59); BILIRUBIN,DIRECT 0.3 mg/dL (0.0-0.4); BILIRUBIN,TOTAL 0.8 mg/dL (0.2-1.3); BLOOD UREA NITROGEN 12 mg/dL (7-20); CALCIUM 9.1 mg/dL (8.4-10.2); CARBON DIOXIDE 27 mmol/L (22-30); CHLORIDE 106 mmol/L (98-107); GLUCOSE 90 mg/dL (75-110); POTASSIUM 3.3 mmol/L (3.6-5.0); SODIUM 143.5 mmol/L (137-145); TOTAL PROTEIN 6.2 g/dL (6.3-8.2)
[2018-07-09] MEDS: POTASSIUM CHLORIDE 10 MEQ CAPSULE.ER PO SCH (09:30)
[2018-07-09] MEDS: FOLIC ACID 1 MG TABLET PO SCH (09:31)
[2018-07-09] MEDS: MULTIVIT-STRESS FORMULA/ZINC TABLET PO SCH (09:31)
[2018-07-09] MEDS: CYANOCOBALAMIN (VITAMIN B-12) 1,000 MCG TABLET PO SCH (09:32)
[2018-07-09] MEDS: CHOLECALCIFEROL (D3) 1,000 UNIT TABLET PO SCH (09:32)
[2018-07-09] MEDS: FLUTICASONE/SALMETEROL DISKUS 250-50 MCG/DOSE IH SCH (09:32)
[2018-07-09] MEDS: FLUTICASONE NASAL SPRAY 50 MCG/SPRY 120 SPRAY/16 GM NASL SCH (09:34)
--- NOTE | 2018-07-09 13:57 | PDOC TRANSFER SUMMARY ---
General Admission Date/PCP: 06/06/18 23:47 ZHENG MORA NP Resuscitation Status: Full Code - Transfer Diagnosis (1) C. difficile colitis Is this a current diagnosis for this admission?: Yes Diagnosis Summary: Asymptomatic. Patient has received 3 dose of oral vancomycin. Patient to complete 10 days of total antibiotics. Please continue another 8 days of metronidazole. C. difficile colitis may have been due to long-term antibiotic while inpatient. (2) Cellulitis of both lower extremities Is this a current diagnosis for this admission?: Yes Diagnosis Summary: Resolved. Presented on 06/09/2018 complaining of worsening erythema and right lower extremity that was extending above his knee to his thigh. Patient was found to have erythema to mid thigh, erythema and increased warmth and tenderness to palpation. Patient had no fever however he was found to have leukocytosis. Blood cultures were obtained which came back negative. Patient has unspecified Keflex allergy therefore he was started on IV vancomycin. Patient was transitioned to levofloxacin and received a total of 14 days (3) Hypokalemia Is this a current diagnosis for this admission?: Yes Diagnosis Summary: Unspecified cause. Discontinue oral potassium replacement. Patient is to follow-up with PCP to monitor his potassium and adjust doses as appropriate. (4) COPD (chronic obstructive pulmonary disease) Is this a current diagnosis for this admission?: Yes Diagnosis Summary: Stable. Continue neb treatments. Continue home oxygen and nightly BiPAP. (5) Chronic deep vein thrombosis (DVT) Is this a current diagnosis for this admission?: Yes Diagnosis Summary: History of previous DVT. Continue Xarelto (6) Acute hypercapnic respiratory failure Is this a current diagnosis for this admission?: Yes Diagnosis Summary: On 06/15/2018 patient patient was found unresponsive on the floor. ACLS code was called and patient was found to have SPO2 of 52%. Patient was transferred to ICU where he was intubated. He was started on broad-spectrum antibiotics, pulmonary critical care was consulted. Patient was successfully extubated and transitioned back to medical floor. - Transfer Medications Home Medications: Atorvastatin Calcium 40 mg PO DAILY 06/07/18 Cholecalciferol (Vitamin D3) [Vitamin D3 5000 unit Capsule] 5,000 unit PO DAILY 06/07/18 Cyanocobalamin (Vitamin B-12) [Vitamin B-12] 1,000 mcg PO DAILY 06/07/18 Docusate Sodium [Colace] 100 mg PO BID 06/07/18 Fluticasone/Salmeterol [Advair 250-50 Diskus 28 dose] 1 inh IH Q12 06/07/18 Folic Acid [Folvite 1 mg Tablet] 1 mg PO DAILY 06/07/18 Furosemide [Lasix 20 mg Tablet] 20 mg PO QAM 06/07/18 Loratadine [Claritin] 10 mg PO DAILY 06/07/18 Melatonin 10 mg PO QHS 06/07/18 Mometasone Furoate [Nasonex] 1 spray NS Q12 06/07/18 Montelukast Sodium [Singulair 10 mg Tablet] 10 mg PO QHS 06/07/18 Multivitamin [Multiple Vitamins] 1 each PO DAILY 06/07/18 Naloxegol Oxalate [Movantik] 25 mg PO DAILY 06/07/18 Omeprazole 40 mg PO DAILY 06/07/18 Oxycodone HCl [Oxycodone HCl 10 MG Tablet] 10 mg PO Q6 06/07/18 Pregabalin [Lyrica] 150 mg PO Q8 06/07/18 Rivaroxaban [Xarelto] 20 mg PO DAILY 06/07/18 Tiotropium Stephen [Spiriva Respimat] 2 puff IH DAILY 06/07/18 Tramadol HCl [Ultram] 50 mg PO TIDP PRN 06/07/18 Trazodone HCl [Desyrel] 300 mg PO QHS 06/07/18 Vitamin B Complex [Vitamin B Complex-100] 1 each PO DAILY 06/07/18 l Acidophil/B Lactis/B Longum [Florajen3 Capsule] 460 mg PO QAM 06/07/18 Transfer Medications: Current Medications Acetaminophen (Tylenol 325 Mg Tablet) 650 mg PO Q6HP PRN PRN Reason: PAIN Stop: 08/01/18 13:17 Last Admin: 07/09/18 04:34 Dose: 650 mg Albuterol/Ipratropium (Duoneb 3 Ml Ampul) 3 ml NEB RTQ6 MICHELLE Stop: 08/07/18 13:59 Last Admin: 07/09/18 09:06 Dose: Not Given Atorvastatin Calcium (Lipitor 40 Mg Tablet) 40 mg PO QHS MICHELLE Stop: 07/10/18 21:59 Last Admin: 07/08/18 21:37 Dose: 40 mg Cholecalciferol (Vitamin D3 1000 Unit Tablet) 5,000 unit PO DAILY MICHELLE Stop: 07/11/18 09:59 Last Admin: 07/09/18 09:32 Dose: 5,000 unit Cyanocobalamin (Vitamin B-12 1000 Mcg Tablet) 1,000 mcg PO DAILY MICHELLE Stop: 07/11/18 09:59 Last Admin: 07/09/18 09:32 Dose: 1,000 mcg Fluticasone Propionate (Flonase Nasal Rough And Ready 50 Mcg/Rough And Ready 16 Gm) 1 spray NASL Q12 MICHELLE Stop: 07/11/18 09:59 Last Admin: 07/09/18 09:34 Dose: 1 spr Folic Acid (Folvite 1 Mg Tablet) 1 mg PO DAILY MICHELLE Stop: 07/11/18 09:59 Last Admin: 07/09/18 09:31 Dose: 1 mg Heparin Sodium (Porcine) (Heparin Flush 10 Unit/Ml 5 Ml Disp.Syrg) 30 unit IV Q12 MICHELLE Stop: 07/11/18 09:59 Last Admin: 07/09/18 09:33 Dose: 30 unit Heparin Sodium (Porcine) (Heparin Flush 10 Unit/Ml 5 Ml Disp.Syrg) 30 unit IV .AFTER EACH USE PRN Stop: 07/11/18 09:47 Last Admin: 07/04/18 05:41 Dose: 30 unit Melatonin (Melatonin 5 Mg Tablet) 10 mg PO QHS COUNTS INCLUDE 234 BEDS AT THE [facility] Stop: 07/10/18 21:59 Last Admin: 07/08/18 21:37 Dose: 10 mg Montelukast Sodium (Singulair 10 Mg Tablet) 10 mg PO QHS MICHELLE Stop: 07/10/18 21:59 Last Admin: 07/08/18 21:37 Dose: 10 mg Potassium Chloride (Klor-Con 10 Meq Capsule Er) 40 meq PO DAILY MICHELLE Stop: 08/05/18 09:59 Last Admin: 07/09/18 09:30 Dose: 40 meq Rivaroxaban (Xarelto 10 Mg Tablet) 20 mg PO WSUPPER MICHELLE Stop: 07/31/18 16:59 Last Admin: 07/08/18 18:36 Dose: 20 mg Fluticasone/Salmeterol (Advair 250-50 Diskus 14 Dose/Diskus) 1 inh IH Q12A MICHELLE Stop: 07/10/18 17:59 Last Admin: 07/09/18 09:32 Dose: 1 inhaler Sodium Chloride (Nacl 0.9% Inj/Pf 10 Ml Sdv) 10 ml IV .AFTER EACH USE PRN Stop: 07/11/18 09:47 Last Admin: 07/07/18 21:34 Dose: 10 ml Vancomycin HCl (Vancocin Inj 500 Mg Vial) 125 mg PO Q6A MICHELLE Stop: 07/16/18 09:01 Last Admin: 07/09/18 09:33 Dose: 125 mg Vitamin B Complex/Vit C/Vit E/Zinc (Zbec Tablet) 1 tab PO DAILY MICHELLE Stop: 07/11/18 09:59 Last Admin: 07/09/18 09:31 Dose: 1 tab - Allergies Allergies/Adverse Reactions: cephalexin monohydrate [From Keflex] Allergy (Intermediate, Verified 06/08/16 08 :54) codeine Allergy (Verified 06/08/16 08:54) morphine Allergy (Verified 06/08/16 08:54) - Diet/Activity Discharge Diet: As Tolerated Hospital Course Hospital Course: Clinical of worsening erythema in his right lower extremity descending to above his knee. Patient was admitted for management of his left lower extremity cellulitis. On on 06/20/2018 patient became very hypoxic and I went into hypoxic respiratory failure patient was intubated and transferred to ICU. Patient was successfully extubated and transferred back to the floor. Physical Exam Vital Signs: Temp Pulse Resp BP Pulse Ox 98.2 F 97 20 115/72 98 07/09/18 12:44 07/09/18 12:44 07/09/18 12:44 07/09/18 12:44 07/09/18 12:44 Intake & Output 07/08/18 07/09/18 07/10/18 06:59 06:59 06:59 Intake Total 711 709 100 Output Total 700 550 Balance 11 159 100 Weight 113.9 kg 114.1 kg General appearance: PRESENT: no acute distress, well-developed, well-nourished Head exam: PRESENT: atraumatic, normocephalic Eye exam: PRESENT: conjunctiva pink, EOMI, PERRLA. ABSENT: scleral icterus Ear exam: PRESENT: normal external ear exam Mouth exam: PRESENT: moist, tongue midline Neck exam: ABSENT: carotid bruit, JVD, lymphadenopathy, thyromegaly Respiratory exam: PRESENT: clear to auscultation lui. ABSENT: rales, rhonchi, wheezes Cardiovascular exam: PRESENT: RRR. ABSENT: diastolic murmur, rubs, systolic murmur Pulses: PRESENT: normal dorsalis pedis pul Vascular exam: PRESENT: normal capillary refill GI/Abdominal exam: PRESENT: normal bowel sounds, soft. ABSENT: distended, guarding, mass, organolmegaly, rebound, tenderness Rectal exam: PRESENT: deferred Extremities exam: PRESENT: full ROM. ABSENT: calf tenderness, clubbing, pedal edema Musculoskeletal exam: PRESENT: dislocation, other - Right lower extremity 2+ pitting edema chronic, due to chronic lymphedema. Bilateral lower extremity stasis dermatitis. Left lower extremity no edema. No sign of active infection negative for any tenderness. ABSENT: ambulatory, deformity, full ROM Neurological exam: PRESENT: alert, awake, oriented to person, oriented to place , oriented to time, oriented to situation, CN II-XII grossly intact. ABSENT: motor sensory deficit Psychiatric exam: PRESENT: appropriate affect, normal mood. ABSENT: homicidal ideation, suicidal ideation Skin exam: PRESENT: dry, intact, warm. ABSENT: cyanosis, rash Results Laboratory Results: 07/09/18 04:41 07/09/18 10:45 07/09/18 07/09/18 07/09/18 04:41 04:41 10:45 WBC 7.3 RBC 3.60 L Hgb 10.7 L Hct 31.7 L MCV 88 MCH 29.8 MCHC 33.8 RDW 18.3 H Plt Count 196 Seg Neutrophils % 57.0 Lymphocytes % 30.6 Monocytes % 10.0 Eosinophils % 1.6 Basophils % 0.8 Absolute Neutrophils 4.2 Absolute Lymphocytes 2.2 Absolute Monocytes 0.7 Absolute Eosinophils 0.1 Absolute Basophils 0.1 Sodium 143.5 Potassium 3.3 L 3.5 L Chloride 106 Carbon Dioxide 27 Anion Gap 11 BUN 12 Creatinine 0.47 L Est GFR ( Amer) > 60 Est GFR (Non-Af Amer) > 60 Glucose 90 Calcium 9.1 Magnesium 1.6 Total Bilirubin 0.8 AST 26 ALT 50 Alkaline Phosphatase 44 Total Protein 6.2 L Albumin 3.0 L 07/07/18 20:15 Catheterized Urine Urine Culture - Final NO GROWTH 2 DAYS 06/20/18 06/20/18 06/20/18 05:45 05:45 05:45 Creatine Kinase 73 CK-MB (CK-2) 0.62 Troponin I 0.014 NT-Pro-B Natriuret Pep 64 06/20/18 06/20/18 06/20/18 10:30 10:30 10:30 Creatine Kinase 97 Cancelled CK-MB (CK-2) 1.25 Troponin I 0.154 NT-Pro-B Natriuret Pep 06/20/18 06/20/18 06/20/18 10:30 16:02 16:02 Creatine Kinase 78 CK-MB (CK-2) Cancelled 1.12 Troponin I Cancelled 0.132 NT-Pro-B Natriuret Pep 06/20/18 06/20/18 22:15 22:15 Creatine Kinase 63 CK-MB (CK-2) 1.00 Troponin I 0.101 NT-Pro-B Natriuret Pep Impressions: Guidance Fluoroscopy 06/11/18 00:00 IMPRESSION: SUCCESSFUL PLACEMENT OF A 5 FR DUAL LUMEN 13 9 CM PICC IN THE LEFT BASILIC VEIN. Interventional Vascular Procedure 06/11/18 00:00 IMPRESSION: SUCCESSFUL PLACEMENT OF A 5 FR DUAL LUMEN 13 9 CM PICC IN THE LEFT BASILIC VEIN. PICC Line Insertion 06/11/18 00:00 IMPRESSION: SUCCESSFUL PLACEMENT OF A 5 FR DUAL LUMEN 13 9 CM PICC IN THE LEFT BASILIC VEIN. Chest/Abdomen CTA 06/20/18 09:17 IMPRESSION: No CT angio evidence of acute pulmonary emboli. PICC line, endotracheal tube, nasogastric tube in good positioning. Bandlike airspace disease in the dependent portions of both lungs, likely atelectasis. Abdomen/Pelvis CT 06/28/18 00:00 IMPRESSION: Small pleural effusions. Bilateral airspace disease. Atelectasis versus pneumonia. Cholelithiasis. Diverticulosis. Head CT 06/28/18 00:00 IMPRESSION: NORMAL BRAIN CT WITHOUT CONTRAST. EVIDENCE OF ACUTE STROKE: NO. KUB X-Ray 06/28/18 00:00 IMPRESSION: Nasogastric tube tip and side port in the stomach. Stomach decompressed. Moderate stool in the colon. Otherwise unremarkable bowel gas pattern. Chest X-Ray 07/02/18 07:00 IMPRESSION: Persistent left retrocardiac consolidation atelectasis versus pneumonia
[2018-07-09 16:21] VITALS: BP 121/76
== END 2018-07-09 16:58 | DRG 602 ==
LOC: ER 22:24 → EH 23:47 → 4S 06-07 11:57 → ICU 06-20 06:02 → 3N 07-02 07:48
PROVIDERS: ADMIT Internal Medicine; ATTEND Internal Medicine
PROC: 02HV33Z Insertion of Infusion Device into Superior Vena Cava, Percutaneous Approach (ICD-10-PCS; 2018-06-11)
PROC: B518ZZA Fluoroscopy of Superior Vena Cava, Guidance (ICD-10-PCS; 2018-06-11)
PROC: B548ZZA Ultrasonography of Superior Vena Cava, Guidance (ICD-10-PCS; 2018-06-11)
PROC: 0BH17EZ Insertion of Endotracheal Airway into Trachea, Via Natural or Artificial Opening (ICD-10-PCS; principal; 2018-06-20)
PROC: 5A1955Z Respiratory Ventilation, Greater than 96 Consecutive Hours (ICD-10-PCS; 2018-06-20)
PROC: 0DH67UZ Insertion of Feeding Device into Stomach, Via Natural or Artificial Opening (ICD-10-PCS; 2018-06-20)
PROC: 3E0G76Z Introduction of Nutritional Substance into Upper GI, Via Natural or Artificial Opening (ICD-10-PCS; 2018-06-28)
PROC: 5A09557 Assistance with Respiratory Ventilation, Greater than 96 Consecutive Hours, Continuous Positive Airway Pressure (ICD-10-PCS; 2018-06-30)
DX: L03.116 Cellulitis of left lower limb (principal); J96.22 Acute and chronic respiratory failure with hypercapnia; J96.21 Acute and chronic respiratory failure with hypoxia; F11.20 Opioid dependence, uncomplicated; J96.11 Chronic respiratory failure with hypoxia; Z68.42 Body mass index [BMI] 45.0-49.9, adult; I82.A2 Chronic embolism and thrombosis of axillary vein; E87.2 Acidosis; J44.0 Chronic obstructive pulmonary disease with (acute) lower respiratory infection; A04.72 Enterocolitis due to Clostridium difficile, not specified as recurrent; L03.115 Cellulitis of right lower limb; Z99.81 Dependence on supplemental oxygen; Z86.14 Personal history of Methicillin resistant Staphylococcus aureus infection; I89.0 Lymphedema, not elsewhere classified; I25.10 Atherosclerotic heart disease of native coronary artery without angina pectoris; G47.33 Obstructive sleep apnea (adult) (pediatric); I11.0 Hypertensive heart disease with heart failure; I50.9 Heart failure, unspecified; I73.9 Peripheral vascular disease, unspecified; I87.2 Venous insufficiency (chronic) (peripheral); K21.9 Gastro-esophageal reflux disease without esophagitis; K44.9 Diaphragmatic hernia without obstruction or gangrene; K70.30 Alcoholic cirrhosis of liver without ascites; F10.20 Alcohol dependence, uncomplicated; E66.01 Morbid (severe) obesity due to excess calories; D64.9 Anemia, unspecified; E87.6 Hypokalemia; G89.29 Other chronic pain; Y90.2 Blood alcohol level of 40-59 mg/100 ml; B95.61 Methicillin susceptible Staphylococcus aureus infection as the cause of diseases classified elsewhere; B96.1 Klebsiella pneumoniae [K. pneumoniae] as the cause of diseases classified elsewhere; Z78.1 Physical restraint status; R00.1 Bradycardia, unspecified; R63.3 Feeding difficulties; T40.605A Adverse effect of unspecified narcotics, initial encounter; J20.9 Acute bronchitis, unspecified; R19.7 Diarrhea, unspecified; F17.210 Nicotine dependence, cigarettes, uncomplicated; I25.2 Old myocardial infarction; Z90.49 Acquired absence of other specified parts of digestive tract; Z79.899 Other long term (current) drug therapy; Z79.02 Long term (current) use of antithrombotics/antiplatelets; Z88.6 Allergy status to analgesic agent; Z88.1 Allergy status to other antibiotic agents
CPT/HCPCS: 36415; 36569; 70450; 71045; 71275; 74018; 74176; 76937; 77001; 80048; 80053; 80202; 80307; 81001; 82140; 82271; 82550; 82553; 82565; 82803; 82962; 83605; 83735; 83880; 83930; 83935; 84100; 84132; 84484; 85025; 85027; 85610; 85730; 87040; 87045; 87070; 87077; 87086; 87186; 87205; 87493; 89055; 93005; 93010; 93306; 93970; 94002; 94003; 94660; 94667; 94668; 94799; 99285; A9270-GY; G8978-GP; G8979-GP; J0295; J0744; J1170; J1630; J1642; J1644; J1650; J1940; J1956; J2250; J2550; J2704; J2765; J2920; J2930; J3370; J3475; J3480; J3490; J7030; J7060; J7512; J7620; J7685; S0028; S0164

== ENCOUNTER 2019-07-11 14:58 | Inpatient (IN) | payer MEDICARE ==
[2019-07-11 15:31] LABS: ABSOLUTE LYMPHOCYTES (AUTO) 3.7 10^3/uL (0.5-4.7); ABSOLUTE MONOCYTES (AUTO) 1.2 10^3/uL (0.1-1.4); ABSOLUTE NEUT (AUTO) 4.4 10^3/uL (1.7-8.2); BASOPHILS % (AUTO) 0.4 % (0-2); EOSINOPHILS % (AUTO) 0.4 % (0-6); HEMOGLOBIN 10.2 g/dL (13.5-17.0); LYMPHOCYTES % (AUTO) 39.7 % (13-45); MEAN CORPUSCULAR HEMOGLOBIN 29.3 pg (27.0-33.4); MEAN CORPUSCULAR HGB CONC 32.8 g/dL (32.0-36.0); MEAN CORPUSCULAR VOLUME 89 fl (80-97); MONOCYTES % (AUTO) 12.5 % (3-13); PLATELET COUNT 202 10^3/uL (150-450); RED BLOOD COUNT 3.47 10^6/uL (4.35-5.55); RED CELL DISTRIBUTION WIDTH 20.9 % (11.5-14.0); TOTAL CELLS COUNTED % (AUTO) 100 %; WHITE BLOOD COUNT 9.4 10^3/uL (4.0-10.5)
[2019-07-11 15:38] LABS: INTERNATIONAL RATION (INR) 2.22
[2019-07-11 15:47] LABS: VENOUS BLOOD BASE EXCESS 4.2 mmol/L; VENOUS BLOOD HCO3 28.8 mmol/L (20-32); VENOUS BLOOD PCO2 43.5 mmHg (35-63); VENOUS BLOOD PH 7.44 (7.30-7.42)
--- NOTE | 2019-07-11 15:50 | ER Document Report ---
ED Medical Screen (RME) - General Stated Complaint: SEPSIS Time Seen by Provider: 07/11/19 15:11 Primary Care Provider: DAVID WARNER MD [Primary Care Provider] - Follow up as needed TRAVEL OUTSIDE OF THE [place] IN LAST 30 DAYS: No - HPI Notes: 07/11/19 15:40 64-year-old male with a history of COPD, CAD, GERD, sleep apnea, A. fib presents via EMS for recurrent cellulitis of the bilateral lower extremities with chronic edema to bilateral lower extremities for evaluation. EMS had given patient 1 g Rocephin IV while in transit as well as getting a stat lactic which was 4.2. Patient follows with Dr. Aly Cruz who is a vascular surgeon affiliated with [facility] as well as wound care. His friend was concerned about the appearance of his lower extremities, and called EMS. Patient is a [] that presents to the emergency department for chief complaint of []. []. ROS: Other than noted above, the 12 point review of systems was reviewed with the patient and were negative, all pertinent findings are included in the HPI. PHYSICAL EXAMINATION: Vital signs reviewed. GENERAL: Chronically ill, well-nourished and in no acute distress. HEAD: Atraumatic, normocephalic. NECK: Normal range of motion CV: Irregularly irregular heart rate LUNGS: Diminished breath sounds bilateral lobes throughout skin: left medial aspect of foot with decubitus ulcer approximately 3 cm x 3 cm NEUROLOGICAL: Normal speech PSYCH: Normal mood, normal affect. MDM: Patient seen and examined for rapid initial assessment. Vital signs reviewed. A comprehensive ED assessment and evaluation of the patient, analysis of test results and completion of the medical decision making process will be conducted by additional ED providers. *Note is created using voice recognition software and may contain spelling, syntax or grammatical errors. - Related Data Allergies/Adverse Reactions: cephalexin monohydrate [From Keflex] Allergy (Intermediate, Verified 06/08/16 08:54) codeine Allergy (Verified 06/08/16 08:54) morphine Allergy (Verified 06/08/16 08:54) Past Medical History - Past Medical History Cardiac Medical History: Reports: Hx Congestive Heart Failure, Hx DVT, Hx Heart Attack, Hx Hypercholesterolemia, Hx Hypertension, Hx Peripheral Vascular Disease, Hx Pulmonary Embolism Pulmonary Medical History: Reports: Hx Asthma, Hx Bronchitis, Hx COPD, Hx Pneumonia, Hx Sleep Apnea Denies: Hx Tuberculosis Neurological Medical History: Denies: Hx Seizures Renal/ Medical History: Denies: Hx Peritoneal Dialysis GI Medical History: Reports: Hx Cirrhosis - Alcoholic, Hx Gastroesophageal Reflux Disease, Hx Hiatal Hernia, Hx Ulcer Psychiatric Medical History: Denies: Hx Depression Infectious Medical History: Reports: Hx MRSA, 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 Denies: Hx Appendectomy, Hx Bowel Surgery, Hx Coronary Artery Bypass Graft, Hx Gastric Bypass Surgery, Hx Pacemaker - Immunizations Hx Diphtheria, Pertussis, Tetanus Vaccination: Yes Course - Laboratory Result Diagrams: 07/11/19 14:25 07/11/19 14:25 Doctor's Discharge - Discharge Referrals: DAVID WARNER MD [Primary Care Provider] - Follow up as needed
[2019-07-11 15:52] LABS: ALKALINE PHOSPHATASE 159 U/L (38-126); ANION GAP 10 (5-19); ASPARTATE AMINO TRANSFERASE 116 U/L (17-59); BILIRUBIN,DIRECT 0.5 mg/dL (0.0-0.4); BILIRUBIN,TOTAL 0.7 mg/dL (0.2-1.3); BLOOD UREA NITROGEN 6 mg/dL (7-20); CALCIUM 8.3 mg/dL (8.4-10.2); CARBON DIOXIDE 30 mmol/L (22-30); CHLORIDE 96 mmol/L (98-107); GLUCOSE 122 mg/dL (75-110); TOTAL PROTEIN 8.2 g/dL (6.3-8.2)
[2019-07-11 16:00] LABS: POTASSIUM 2.8 mmol/L (3.6-5.0)
--- NOTE | 2019-07-11 16:05 | ER Document Report ---
ED General - General Stated Complaint: SEPSIS Time Seen by Provider: 07/11/19 15:11 Notes: Patient is a 64-year-old male who presents to the emergency department with a chief complaint of bilateral leg swelling due to cellulitis. Patient has a history of cellulitis. He sees Dr. Cruz outpatient for wound care, but has not been in a month. He has a venous stasis ulcer to his left medial ankle. Patient is on home oxygen for COPD he is got a history of chronic back pain, which he sees pain management for. Patient states that he feels his cellulitis has gotten worse. Patient walks on his feet. Denies any fever, body aches, or chills. Denies any dysuria, chest pain, shortness of breath. TRAVEL OUTSIDE OF THE [place] IN LAST 30 DAYS: No - Related Data Allergies/Adverse Reactions: cephalexin monohydrate [From Keflex] Allergy (Intermediate, Verified 06/08/16 08:54) codeine Allergy (Verified 06/08/16 08:54) morphine Allergy (Verified 06/08/16 08:54) Past Medical History - Social History Smoking Status: Current Every Day Smoker Frequency of alcohol use: Heavy Family History: COPD, Hypertension - Past Medical History Cardiac Medical History: Reports: Hx Congestive Heart Failure, Hx DVT, Hx Heart Attack, Hx Hypercholesterolemia, Hx Hypertension, Hx Peripheral Vascular Disease, Hx Pulmonary Embolism Pulmonary Medical History: Reports: Hx Asthma, Hx Bronchitis, Hx COPD, Hx Pneumonia, Hx Sleep Apnea Denies: Hx Tuberculosis Neurological Medical History: Denies: Hx Seizures Renal/ Medical History: Denies: Hx Peritoneal Dialysis GI Medical History: Reports: Hx Cirrhosis - Alcoholic, Hx Gastroesophageal Reflux Disease, Hx Hiatal Hernia, Hx Ulcer Psychiatric Medical History: Denies: Hx Depression Infectious Medical History: Reports: Hx MRSA, 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 Denies: Hx Appendectomy, Hx Bowel Surgery, Hx Coronary Artery Bypass Graft, Hx Gastric Bypass Surgery, Hx Pacemaker - Immunizations Hx Diphtheria, Pertussis, Tetanus Vaccination: Yes Hx Pneumococcal Vaccination: 03/25/13 Review of Systems - Review of Systems Notes: REVIEW OF SYSTEMS: CONSTITUTIONAL : Denies recent illness. Denies recent unintentional weight loss. Denies fever, chills, or sweats. EENT: Denies eye, ear, throat, or mouth pain, discharge, or symptoms. Denies nasal or sinus congestion. CARDIOVASCULAR: Denies chest pain. RESPIRATORY: Denies shortness of breath, cough, congestion, difficulty breathing, or wheezing. GASTROINTESTINAL: Denies nausea, vomiting, and diarrhea. Denies abdominal pain. Denies constipation. GENITOURINARY: Denies difficulty urinating, burning, blood in urine, urgency or frequency. MUSCULOSKELETAL: Denies neck and back pain. Denies joint pain. SKIN: See HPI HEMATOLOGIC : Denies easy bruising or bleeding. LYMPHATIC: Denies swollen, painful, enlarged glands. NEUROLOGICAL: Denies no numbness or tingling denies weakness. Denies headache. Denies altered mental status. Denies alteration in speech. PSYCHIATRIC: Denies stress, anxiety, alteration in sleep patterns, or depression. All other systems reviewed and negative. Physical Exam - Vital signs Vitals: Resp Pulse Ox 21 H 93 07/11/19 15:19 07/11/19 15:19 - Notes Notes: PHYSICAL EXAMINATION: GENERAL: Appears well, healthy, well-nourished, no acute distress. HEAD: Normocephalic, atraumatic. EYES: PERRL, conjunctiva normal, all extraocular movements intact, sclera nonicteric ENT: Moist mucous membranes. NECK: Supple, no noticeable swelling, redness, rash. Normal range of motion. LUNGS: Equal breath sounds bilaterally and expiratory wheezes to auscultation. CARDIOVASCULAR: S1-S2, regular rate, regular rhythm. Radial pulses 2+, normal. ABDOMEN: Normoactive bowel sounds. Soft, nontender, no guarding, no rebound tenderness, and no masses palpated. EXTREMITIES: Normal strength and range of motion. No cyanosis. NEUROLOGICAL: Moves all extremities upon command. Strength 5/5 in all extremities. PSYCH: Normal mood, normal affect. SKIN: Warm, 3+ pitting edema and erythema noted to bilateral lower extremities.. Normal skin turgor. Left ankle venous stasis ulcer noted. Course - Re-evaluation Re-evalutation: 07/11/19 17:52 Patient's patient's urine is unremarkable. His sodium and chloride are mildly low. His potassium is 2.8. His acid is 3.8. BNP is unremarkable. He has expiratory wheezes and will be given a DuoNeb treatment. At this time, due to the patient having significant cellulitis with most likely lymphadenopathy, he will be I will call the hospitalist service to see if he can be admitted. 07/11/19 17:58 I spoke with Ashley Cody NP. The patient will be admitted to the telemetry service. I also ordered a dose of vancomycin and fluconazole, as the patient has history of cellulitis with a fungal infection before. - Vital Signs Vital signs: Temp Pulse Resp BP Pulse Ox 99.2 F 89 16 102/63 96 07/11/19 22:44 07/12/19 07:00 07/12/19 03:48 07/11/19 22:44 07/11/19 23:53 - Laboratory Result Diagrams: 07/12/19 03:28 07/12/19 03:28 Laboratory results interpreted by me: 07/11/19 07/11/19 07/11/19 14:25 14:25 14:25 RBC 3.47 L Hgb 10.2 L Hct 31.0 L RDW 20.9 H ESR PT 25.0 H VBG pH Sodium 135.9 L Potassium 2.8 L* Chloride 96 L BUN 6 L Glucose 122 H Lactic Acid Calcium 8.3 L Magnesium Direct Bilirubin 0.5 H AST 116 H Alkaline Phosphatase 159 H C-Reactive Protein Albumin 3.0 L 07/11/19 07/11/19 07/11/19 14:25 14:25 14:25 RBC Hgb Hct RDW ESR 88 H PT VBG pH Sodium Potassium Chloride BUN Glucose Lactic Acid Calcium Magnesium 1.3 L Direct Bilirubin AST Alkaline Phosphatase C-Reactive Protein 43.3 H Albumin 07/11/19 07/11/19 15:20 15:20 RBC Hgb Hct RDW ESR PT VBG pH 7.44 H Sodium Potassium Chloride BUN Glucose Lactic Acid 3.8 H Calcium Magnesium Direct Bilirubin AST Alkaline Phosphatase C-Reactive Protein Albumin - EKG Interpretation by Me Additional EKG results interpreted by me: 07/11/19 16:06 Sinus rhythm. Rate 94. GA 144; QRS 94; QT 408; QTc 511. No ST elevations or depressions noted. Discharge - Discharge Clinical Impression: Bilateral lower leg cellulitis Stasis ulcer Qualifiers: Venous stasis ulcer site: ankle Varicose vein presence: unspecified whether present Laterality: left Condition: Good Disposition: ADMITTED INPATIENT Admitting Provider: Cheryl (Hospitalist) Unit Admitted: Telemetry
--- NOTE | 2019-07-11 16:31 | RADIOLOGY REPORT (SQ) ---
EXAM DESCRIPTION: FOOT BILATERAL 2 VIEWS COMPLETED DATE/TIME: 07/11/2019 4:01 pm REASON FOR STUDY: r/o osteo COMPARISON: Right foot films 02/10/2016 NUMBER OF VIEWS: Two views. TECHNIQUE: AP and lateral radiographic images acquired of the right and left foot. LIMITATIONS: None. FINDINGS: MINERALIZATION: Normal. BONES: No acute fracture or dislocation. No worrisome bone lesions. JOINTS: No effusions. There is lateral angulation of the right 3rd toe at the MTP joint, unchanged f rom 02/10/2016. SOFT TISSUES: Diffuse profound skin thickening and subcutaneous tissue thickening over the dorsal lui ateral feet and ankles right greater than left. OTHER: No other significant finding. IMPRESSION: No aggressive bony demineralization or periosteal new bone worrisome for osteomyelitis. Profound edema and skin thickening over both the right and left dorsal foot TECHNICAL DOCUMENTATION: JOB ID: [id number] [employer]- All Rights Reserved Reading location - IP/workstation name: [email or web address]
[2019-07-11 16:36] LABS: APPEARANCE,URINE CLEAR; BILIRUBIN,URINE NEGATIVE (NEGATIVE); COLOR,URINE STRAW; GLUCOSE, URINE NEGATIVE (NEGATIVE); KETONES,URINE NEGATIVE (NEGATIVE); LEUKOCYTE ESTERASE,URINE NEGATIVE (NEGATIVE); NITRITE,URINE NEGATIVE (NEGATIVE); PROTEIN,URINE NEGATIVE (NEGATIVE); URINE SPECIFIC GRAVITY 1.003; UROBILINOGEN,URINE NEGATIVE mg/dL (<2.0)
[2019-07-11] MEDS ORDERED: NORMAL SALINE 1000 ML 1,000 ML IV ONE (17:47)
[2019-07-11] MEDS ORDERED: VANCOMYCIN HCL INJ 1000 MG VIAL IV ONE (17:48)
[2019-07-11] MEDS ORDERED: IPRATROPIUM/ALBUTEROL 0.5-2.5 MG/3 ML AMPUL NEB ONE (17:51)
[2019-07-11] MEDS ORDERED: FLUCONAZOLE 400 MG/NS RTU 400 MG/200 ML RTUPB IV ONE ×2 (17:54→23:57)
[2019-07-11] MEDS ORDERED: MAGNESIUM HYDROXIDE SUSP 30 ML UDCUP PO PRN (18:03)
[2019-07-11] MEDS ORDERED: ACETAMINOPHEN 325 MG TABLET PO PRN (18:03)
[2019-07-11] MEDS ORDERED: LEVALBUTEROL HCL NEB 1.25 MG/3 ML AMPUL NEB PRN (18:03)
[2019-07-11] MEDS ORDERED: MAG HYDROX/AL HYDROX/SIMETH SUSP 30 ML UDCUP PO PRN (18:03)
[2019-07-11] MEDS ORDERED: PROMETHAZINE HCL INJ 25 MG/1 ML VIAL IV PRN (18:03)
[2019-07-11] MEDS ORDERED: ONDANSETRON HCL INJ/PF 4 MG/2 ML SDV IV PRN (18:03)
[2019-07-11] MEDS ORDERED: IPRATROPIUM/ALBUTEROL 0.5-2.5 MG/3 ML AMPUL NEB PRN (18:03)
[2019-07-11] MEDS ORDERED: NORMAL SALINE 1000 ML 1,000 ML IV PRN ×2 (18:03→19:22)
[2019-07-11] MEDS: POTASSI CL 20 MEQ/50 ML RIDER 20 MEQ/50 ML RTUPB IV SCH ×2 (18:25→21:01)
--- NOTE | 2019-07-11 19:02 | EKG REPORT ---
SEVERITY:- ABNORMAL ECG - SINUS RHYTHM ATRIAL PREMATURE COMPLEX PROBABLE POSTERIOR INFARCT PROLONGED QT INTERVAL : Confirmed by: Joseph Henning MD 11-Jul-2019 19:01:23
[2019-07-11] MEDS ORDERED: VANCOMYCIN HCL 0 MG in DEXTROSE 5%-WATER 250 ML IV NR (19:30)
[2019-07-11] MEDS ORDERED: LORAZEPAM 1 MG TABLET PO PRN (19:32)
--- NOTE | 2019-07-11 19:42 | PDOC H&P ---
History of Present Illness Admission Date/PCP: 07/11/19 18:11 DAVID WARNER MD Patient complains of: Left foot wound History of Present Illness: ANALY NEVAREZ is a 64 year old male, who is a poor historian but by medical record is confirmed to have a past medical history significant for Chronic respiratory failure with hypoxia (on home O2), lymphedema, opiate dependent chronic pain, COPD, CAD, DVT, PE, GERD, obesity, RONIT, alcohol and tobacco dependence who presented to the emergency department today with a complaint of worsening appearance of chronic wound to his left medial ankle; now with sloughing and purulent drainage, increased pain, and erythematous border. Patient reports that he has been seen by Dr. Cruz in the past, however, it has been more than a month since he has had an appointment. He is unable to tell me with the current plan of therapy is. Evaluation in the emergency department revealed baseline anemia (hemoglobin 10.2), INR of 2.22 (home medication list shows Xarelto), hypokalemia (2.8) hyper magnesium (1.3), elevated lactic acid (3.8), negative urinalysis, and EKG demonstrating normal sinus rhythm. A right foot x-ray was negative for bony demineralization but does demonstrate profound edema of the skin over bilateral feet. Patient was provided IV vancomycin and Diflucan. He is referred to the hospitalist service for admission and management of the above-stated complaints and findings. Past Medical History Cardiac Medical History: Reports: Congestive Heart Failure, Coronary Artery Disease, DVT, Myocardial Infarction, Hyperlipidema, Hypertension, Peripheral Vascular Disease, Pulmonary Embolism Pulmonary Medical History: Reports: Asthma, Bronchitis, Chronic Obstructive Pulmonary Disease (COPD), Pneumonia, Respiratory Failure, Sleep Apnea Denies: Tuberculosis Neurological Medical History: Denies: Ischemic CVA, Seizures Endocrine Medical History: Reports: Obesity Denies: Diabetes Mellitus Type 2, Hypothyroidism Renal/ Medical History: Reports: None Malignancy Medical History: Reports: None GI Medical History: Reports: Cirrhosis - Alcoholic, Gastroesophageal Reflux Disease, Hiatal Hernia Psychiatric Medical History: Reports: Alcohol Dependency, Tobacco Dependency Denies: Depression Hematology: Reports: Anemia Infectious Medical History: Reports: Methicillin-Resistant Staph Aureus, Vancomycin-Resistant Enterococci - Recurrent cellulitis of right lower extremity Past Surgical History Past Surgical History: Reports: Cardiac Catheterization - stent x1, Cholecystectomy, Herniorrhaphy - mesh, Orthopedic Surgery - multiple back, Tonsillectomy, Vascular Surgery - filter placed, pt unsure where Denies: Appendectomy, Coronary Artery Bypass Graft, Gastric Bypass Surgery, Pacemaker Social History Information Source: Patient Lives with: Friend Smoking Status: Current Every Day Smoker Cigarettes Packs Per Day: 2 Number of Years Smokin Frequency of Alcohol Use: Heavy Hx Recreational Drug Use: Yes Drugs: Marijuana Hx Prescription Drug Abuse: No - Advance Directive Resuscitation Status: Full Code Surrogate healthcare decision maker:: Patient's friend, Lakesha Freeman, Family History Family History: COPD, Hypertension Parental Family History Reviewed: Yes Children Family History Reviewed: Yes Sibling(s) Family History Reviewed.: Yes Medication/Allergy Home Medications: Atorvastatin Calcium 40 mg PO DAILY 06/07/18 Cholecalciferol (Vitamin D3) [Vitamin D3 5000 unit Capsule] 5,000 unit PO DAILY 06/07/18 Cyanocobalamin (Vitamin B-12) [Vitamin B-12] 1,000 mcg PO DAILY 06/07/18 Docusate Sodium [Colace] 100 mg PO BID 06/07/18 Fluticasone/Salmeterol [Advair 250-50 Diskus 28 dose] 1 inh IH Q12 06/07/18 Folic Acid [Folvite 1 mg Tablet] 1 mg PO DAILY 06/07/18 Furosemide [Lasix 20 mg Tablet] 20 mg PO QAM 06/07/18 Loratadine [Claritin] 10 mg PO DAILY 06/07/18 Melatonin 10 mg PO QHS 06/07/18 Mometasone Furoate [Nasonex] 1 spray NS Q12 06/07/18 Montelukast Sodium [Singulair 10 mg Tablet] 10 mg PO QHS 06/07/18 Multivitamin [Multiple Vitamins] 1 each PO DAILY 06/07/18 Naloxegol Oxalate [Movantik] 25 mg PO DAILY 06/07/18 Omeprazole 40 mg PO DAILY 06/07/18 Oxycodone HCl [Oxycodone HCl 10 MG Tablet] 10 mg PO Q6 06/07/18 Pregabalin [Lyrica] 150 mg PO Q8 06/07/18 Rivaroxaban [Xarelto] 20 mg PO DAILY 06/07/18 Tiotropium [place] [Spiriva Respimat] 2 puff IH DAILY 06/07/18 Tramadol HCl [Ultram] 50 mg PO TIDP PRN 06/07/18 Trazodone HCl [Desyrel] 300 mg PO QHS 06/07/18 Vitamin B Complex [Vitamin B Complex-100] 1 each PO DAILY 06/07/18 l Acidophil/B Lactis/B Longum [Florajen3 Capsule] 460 mg PO QAM 06/07/18 Metronidazole 500 mg PO TID 8 Days #24 tablet 07/09/18 Potassium Chloride [Klor-Con 10 Meq Capsule ER] 40 meq PO DAILY 30 Days #30 capsule.er 07/09/18 Allergies/Adverse Reactions: cephalexin monohydrate [From Keflex] Allergy (Intermediate, Verified 06/08/16 08:54) codeine Allergy (Verified 06/08/16 08:54) morphine Allergy (Verified 06/08/16 08:54) Review of Systems Constitutional: ABSENT: chills, fever(s), headache(s), weight gain, weight loss Eyes: ABSENT: visual disturbances Ears: ABSENT: hearing changes Cardiovascular: ABSENT: chest pain, dyspnea on exertion, edema, orthropnea, palpitations Respiratory: ABSENT: cough, hemoptysis Gastrointestinal: ABSENT: abdominal pain, constipation, diarrhea, hematemesis, hematochezia, nausea, vomiting Genitourinary: ABSENT: dysuria, hematuria Musculoskeletal: ABSENT: joint swelling Integumentary: PRESENT: as per HPI, wounds. ABSENT: rash Neurological: ABSENT: abnormal gait, abnormal speech, confusion, dizziness, foca l weakness, syncope Psychiatric: ABSENT: anxiety, depression, homidical ideation, suicidal ideation Endocrine: ABSENT: cold intolerance, heat intolerance, polydipsia, polyuria Hematologic/Lymphatic: ABSENT: easy bleeding, easy bruising Physical Exam Vital Signs: Temp Pulse Resp BP Pulse Ox 24 H 122/74 97 07/11/19 17:01 07/11/19 18:01 07/11/19 18:01 General appearance: PRESENT: no acute distress, cooperative, disheveled, obese, well-developed, well-nourished Head exam: PRESENT: atraumatic, normocephalic Eye exam: PRESENT: conjunctiva pink, EOMI, PERRLA. ABSENT: scleral icterus Ear exam: PRESENT: normal external ear exam Mouth exam: PRESENT: moist, tongue midline Neck exam: ABSENT: carotid bruit, JVD, lymphadenopathy, thyromegaly Respiratory exam: PRESENT: clear to auscultation lui, symmetrical, unlabored. ABSENT: rales, rhonchi, wheezes Cardiovascular exam: PRESENT: RRR, +S1, +S2. ABSENT: diastolic murmur, rubs, systolic murmur Pulses: PRESENT: normal dorsalis pedis pul Vascular exam: PRESENT: normal capillary refill GI/Abdominal exam: PRESENT: normal bowel sounds, soft. ABSENT: distended, guarding, mass, organolmegaly, rebound, tenderness Rectal exam: PRESENT: deferred Extremities exam: PRESENT: full ROM, +2 edema - BLE; lymphedema. ABSENT: calf tenderness, clubbing, pedal edema Neurological exam: PRESENT: alert, awake, oriented to person, oriented to place, oriented to time, oriented to situation, CN II-XII grossly intact. ABSENT: motor sensory deficit Psychiatric exam: PRESENT: appropriate affect, normal mood. ABSENT: homicidal ideation, suicidal ideation Skin exam: PRESENT: dry, warm, other - lichenification, chronic venous stasis changes BLE. Severely edematous feet/toes. Purulent drainage between toes on Left. Venous stasis wound to medial left ankle/foot w/ slough and surrounding errythema. ABSENT: cyanosis, intact, rash Results Laboratory Results: 07/11/19 14:25 07/11/19 14:25 07/11/19 07/11/19 07/11/19 14:25 14:25 14:25 WBC 9.4 RBC 3.47 L Hgb 10.2 L Hct 31.0 L MCV 89 MCH 29.3 MCHC 32.8 RDW 20.9 H Plt Count 202 Seg Neutrophils % 47.0 VBG pH VBG pCO2 VBG HCO3 VBG Base Excess Sodium 135.9 L Potassium 2.8 L* Chloride 96 L Carbon Dioxide 30 Anion Gap 10 BUN 6 L Creatinine 0.60 Est GFR ( Amer) > 60 Glucose 122 H Lactic Acid Calcium 8.3 L Magnesium 1.3 L Total Bilirubin 0.7 AST 116 H Alkaline Phosphatase 159 H Total Protein 8.2 Albumin 3.0 L Urine Color Urine Appearance Urine pH Ur Specific [place] Urine Protein Urine Glucose (UA) Urine Ketones Urine Blood Urine Nitrite Ur Leukocyte Esterase Urine WBC (Auto) 07/11/19 07/11/1919 15:20 15:20 16:00 WBC RBC Hgb Hct MCV MCH MCHC RDW Plt Count Seg Neutrophils % VBG pH 7.44 H VBG pCO2 43.5 VBG HCO3 28.8 VBG Base Excess 4.2 Sodium Potassium Chloride Carbon Dioxide Anion Gap BUN Creatinine Est GFR ( Amer) Glucose Lactic Acid 3.8 H Calcium Magnesium Total Bilirubin AST Alkaline Phosphatase Total Protein Albumin Urine Color STRAW Urine Appearance CLEAR Urine pH 6.0 Ur Specific [place] 1.003 Urine Protein NEGATIVE Urine Glucose (UA) NEGATIVE Urine Ketones NEGATIVE Urine Blood NEGATIVE Urine Nitrite NEGATIVE Ur Leukocyte Esterase NEGATIVE Urine WBC (Auto) 1 07/11/19 15:20 NT-Pro-B Natriuret Pep 372 Impressions: Foot X-Ray 07/11/19 15:38 IMPRESSION: No aggressive bony demineralization or periosteal new bone worrisome for osteomyelitis. Profound edema and skin thickening over both the right and left dorsal foot Assessment and Plan - Diagnosis (1) Bilateral cellulitis of lower leg Is this a current diagnosis for this admission?: Yes Plan: Patient is admitted to the medical floor on continuous cardiac telemetry. Blood cultures are pending. He is empirically placed on IV vancomycin and Zosyn. He did receive a one-time IV Diflucan by the ED provider. Surgery is consulted; appreciate Dr. Calhoun's evaluation recommendations. Venous/arterial ultrasound is pending. Keep extremities elevated. (2) Stasis ulcer Qualifiers: Venous stasis ulcer site: ankle Varicose vein presence: unspecified whether present Laterality: left Is this a current diagnosis for this admission?: Yes Plan: Approximately 8 x 4 cm wound to the medial aspect of his foot just distal to the ankle with sloughing and central eschar. 1 inch border of surrounding erythema. Patient reports that it has worsened significantly over the previous 2 to 3 days. He denies fever. Cultures and antibiotics as above. (3) Alcohol dependence Is this a current diagnosis for this admission?: Yes Plan: Patient endorses heavy alcohol intake with history of alcohol withdrawal. Placed on scheduled Valium every 6 hoursWith PRN Ativan for anxiety/agitation/withdrawal symptoms. He is provided folic acid, thiamine, and multivitamin supplementation. (4) Anemia Qualifiers: Anemia type: unspecified type Qualified Code(s): D64.9 - Anemia, unspecified Is this a current diagnosis for this admission?: Yes Plan: Hemoglobin 10.2. Appears to be at baseline. Likely secondary to nutritional deficiencies and chronic alcohol use. No evidence of active bleeding. Continue multivitamin. (5) Chronic respiratory failure with hypoxia, on home O2 therapy Is this a current diagnosis for this admission?: Yes Plan: Patient with a history of COPD, obesity, RONIT on home O2 at 4 L/min continuous use with CPAP at night. No evidence of COPD exacerbation at this time. Continue supplemental oxygen as needed to maintain oxygen saturations greater than 89%. CPAP nightly. (6) Tobacco use disorder Is this a current diagnosis for this admission?: Yes Plan: Smoking cessation encouraged; nicotine or placement therapies provided. - Time Time Spent with patient: 25-34 minutes Medications reviewed and adjusted accordingly: Yes Anticipated discharge: Home with Homehealth - Inpatient Certification Based on my medical assessment, after consideration of the patient's comorbidities, presenting symptoms, or acuity I expect that the services needed warrant INPATIENT care.: Yes I certify that my determination is in accordance with my understanding of Medicare's requirements for reasonable and necessary INPATIENT services [42 CFR 412.3e].: Yes Medical Necessity: Failure to Improve With Outpatient Therapy, Need For IV Fluids, Need for IV Antibiotics, Risk of Complication if Not Cared For in Hospital
--- NOTE | 2019-07-11 20:06 | PDOC CONSULTATION ---
Consultation Consult Date: 07/11/19 Provider Consulted: MONSTER WAITE Consult reason:: cellulitis left lower leg/ankle History of Present Illness Admission Date/PCP: 07/11/19 18:11 DAVID WARNER MD Patient complains of: pains left lower leg History of Present Illness: ANALY NEVAREZ is a 64 year old male with history of PE and left leg DVT on Xarelto, has chronic edema both lower legs and seen Dr Cruz last year, c/o pains and watery drainage from left ankle for about a week. Went to ED on encouragement by his friend who saw his left ankle this am. Denies fever/chills. Past Medical History Cardiac Medical History: Reports: Congestive Heart Failure, Coronary Artery Disease, DVT, Myocardial Infarction, Hyperlipidema, Hypertension, Peripheral Vascular Disease, Pulmonary Embolism Pulmonary Medical History: Reports: Asthma, Bronchitis, Chronic Obstructive Pulmonary Disease (COPD), Pneumonia, Respiratory Failure, Sleep Apnea Denies: Tuberculosis Neurological Medical History: Denies: Ischemic CVA, Seizures Endocrine Medical History: Reports: Obesity Denies: Diabetes Mellitus Type 2, Hypothyroidism Renal/ Medical History: Reports: None Malignancy Medical History: Reports: None GI Medical History: Reports: Cirrhosis - Alcoholic, Gastroesophageal Reflux Disease, Hiatal Hernia Psychiatric Medical History: Reports: Alcohol Dependency, Tobacco Dependency Denies: Depression Hematology: Reports: Anemia Infectious Medical History: Reports: Methicillin-Resistant Staph Aureus, Vancomycin-Resistant Enterococci - Recurrent cellulitis of right lower extremity Past Surgical History Past Surgical History: Reports: Cardiac Catheterization - stent x1, Cholecystectomy, Herniorrhaphy - mesh, Orthopedic Surgery - multiple back, Tonsillectomy, Vascular Surgery - filter placed, pt unsure where, Other - He had ventral hernia followed by [facility] at [facility] few years ago Denies: Appendectomy, Coronary Artery Bypass Graft, Gastric Bypass Surgery, Pacemaker Social History Lives with: Friend Smoking Status: Current Every Day Smoker Cigarettes Packs Per Day: 2 Number of Years Smokin Frequency of Alcohol Use: Heavy Hx Recreational Drug Use: Yes Drugs: Marijuana Hx Prescription Drug Abuse: No - Advance Directive Resuscitation Status: Full Code Family History Family History: COPD, Hypertension Parental Family History Reviewed: Yes Children Family History Reviewed: No Sibling(s) Family History Reviewed.: No Medication/Allergy Home Medications: Atorvastatin Calcium 40 mg PO DAILY 06/07/18 Cholecalciferol (Vitamin D3) [Vitamin D3 5000 unit Capsule] 5,000 unit PO DAILY 06/07/18 Docusate Sodium [Colace] 100 mg PO BID 06/07/18 Fluticasone/Salmeterol [Advair 250-50 Diskus 28 dose] 1 inh IH Q12 06/07/18 Folic Acid [Folvite 1 mg Tablet] 1 mg PO DAILY 06/07/18 Furosemide [Lasix 20 mg Tablet] 20 mg PO BID 06/07/18 Loratadine [Claritin] 10 mg PO DAILY 06/07/18 Melatonin 10 mg PO QHS 06/07/18 Mometasone Furoate [Nasonex] 1 spray NS Q12 06/07/18 Montelukast Sodium [Singulair 10 mg Tablet] 10 mg PO QHS 06/07/18 Multivitamin [Multiple Vitamins] 1 each PO DAILY 06/07/18 Naloxegol Oxalate [Movantik] 25 mg PO DAILY 06/07/18 Omeprazole 40 mg PO DAILY 06/07/18 Oxycodone HCl [Oxycodone HCl 10 MG Tablet] 10 mg PO Q6 06/07/18 Pregabalin [Lyrica] 150 mg PO Q8 06/07/18 Rivaroxaban [Xarelto] 20 mg PO DAILY 06/07/18 Tiotropium [place] [Spiriva Respimat] 2 puff IH DAILY 06/07/18 Tramadol HCl [Ultram] 50 mg PO TIDP PRN 06/07/18 Trazodone HCl [Desyrel] 300 mg PO QHS 06/07/18 Vitamin B Complex [Vitamin B Complex-100] 1 each PO DAILY 06/07/18 Albuterol Sulfate [Proair Hfa Inhalation Aerosol 8.5 gm Mdi] 1 puff IH Q4 PRN 07/11/19 Albuterol Sulfate [Ventolin 0.083% Neb 2.5 mg/3 ml Ampul] 1 vial NEB TID 07/11/19 Cyanocobalamin (Vitamin B-12) [B-12] 500 mcg PO DAILY 07/11/19 Hydroxyzine HCl [Atarax 10 mg Tablet] 10 mg PO TID PRN 07/11/19 Ipratropium [place] [Atrovent 0.02% Neb 0.5 Mg/2.5 Ml Vial.Neb] 0.5 mg IH TID 07/11/19 Nystatin 1 each TP DAILY 07/11/19 Allergies/Adverse Reactions: cephalexin monohydrate [From Keflex] Allergy (Intermediate, Verified 06/08/16 08:54) codeine Allergy (Verified 06/08/16 08:54) morphine Allergy (Verified 06/08/16 08:54) Review of Systems Constitutional: PRESENT: as per HPI Physical Exam Vital Signs: Temp Pulse Resp BP Pulse Ox 24 H 122/74 97 07/11/19 17:01 07/11/19 18:01 07/11/19 18:01 General appearance: PRESENT: mild distress Head exam: PRESENT: atraumatic Eye exam: PRESENT: conjunctiva pink Mouth exam: PRESENT: moist Neck exam: PRESENT: full ROM Cardiovascular exam: PRESENT: RRR Pulses: PRESENT: normal radial pulses Vascular exam: PRESENT: normal capillary refill GI/Abdominal exam: PRESENT: soft Rectal exam: PRESENT: deferred Extremities exam: PRESENT: tenderness - left medial malleolus There is a darkly discolored skin about 2x6 cm with surrounding redness with some serous drainage Unable to palpate ankle pulses bilaterally because of chronic edema/lymphedema bu tboth feet are warm. No drainage in between toes. All toes also swollen likely due to lymphedema, +2 edema Results Laboratory Results: 07/11/19 14:25 07/11/19 14:25 07/11/19 07/11/19 07/11/19 14:25 14:25 14:25 WBC 9.4 RBC 3.47 L Hgb 10.2 L Hct 31.0 L MCV 89 MCH 29.3 MCHC 32.8 RDW 20.9 H Plt Count 202 Seg Neutrophils % 47.0 VBG pH VBG pCO2 VBG HCO3 VBG Base Excess Sodium 135.9 L Potassium 2.8 L* Chloride 96 L Carbon Dioxide 30 Anion Gap 10 BUN 6 L Creatinine 0.60 Est GFR ( Amer) > 60 Glucose 122 H Lactic Acid Calcium 8.3 L Magnesium 1.3 L Total Bilirubin 0.7 AST 116 H Alkaline Phosphatase 159 H Total Protein 8.2 Albumin 3.0 L Urine Color Urine Appearance Urine pH Ur Specific [place] Urine Protein Urine Glucose (UA) Urine Ketones Urine Blood Urine Nitrite Ur Leukocyte Esterase Urine WBC (Auto) 07/11/19 07/11/19 07/11/19 15:20 15:20 16:00 WBC RBC Hgb Hct MCV MCH MCHC RDW Plt Count Seg Neutrophils % VBG pH 7.44 H VBG pCO2 43.5 VBG HCO3 28.8 VBG Base Excess 4.2 Sodium Potassium Chloride Carbon Dioxide Anion Gap BUN Creatinine Est GFR ( Amer) Glucose Lactic Acid 3.8 H Calcium Magnesium Total Bilirubin AST Alkaline Phosphatase Total Protein Albumin Urine Color STRAW Urine Appearance CLEAR Urine pH 6.0 Ur Specific [place] 1.003 Urine Protein NEGATIVE Urine Glucose (UA) NEGATIVE Urine Ketones NEGATIVE Urine Blood NEGATIVE Urine Nitrite NEGATIVE Ur Leukocyte Esterase NEGATIVE Urine WBC (Auto) 1 07/11/19 15:20 NT-Pro-B Natriuret Pep 372 Impressions: Foot X-Ray 07/11/19 15:38 IMPRESSION: No aggressive bony demineralization or periosteal new bone worrisome for osteomyelitis. Profound edema and skin thickening over both the right and left dorsal foot Assessment & Plan - Diagnosis (1) Cellulitis of left ankle Is this a current diagnosis for this admission?: Yes (2) Lymphedema Is this a current diagnosis for this admission?: Yes (3) Morbid obesity Is this a current diagnosis for this admission?: Yes (4) History of DVT (deep vein thrombosis) Is this a current diagnosis for this admission?: Yes (5) Tobacco use disorder Is this a current diagnosis for this admission?: Yes - Time Time Spent: 30 to 50 Minutes - Inpatient Certification Medical Necessity: Need for IV Antibiotics - Plan Summary Plan Summary: Suggest lower extremities arterial and venous doppler study Leg elevation Continue IV antibiotics
[2019-07-11] MEDS: MAGNESIUM SULFATE/D5W 1 GM/100 ML RTUPB IV SCH ×2 (21:15→22:38)
[2019-07-11] MEDS ORDERED: PIPERACILLIN/TAZOBACTAM 3.375 GM VIAL IV PRN (22:30)
[2019-07-11] MEDS ORDERED: PIPERACILLIN SODIUM/TAZOBACTAM 3.375 GM in NORMAL SALINE 100 ML IV ONE (22:30)
[2019-07-11] MEDS: HEPARIN SOD (PORCINE) 5,000 UNIT/ML 1 ML VIAL SUBCUT SCH (22:41)
[2019-07-11] MEDS ORDERED: PIPERACILLIN/TAZOBACTAM 3.375 GM VIAL IV ONE (23:57)
[2019-07-12] MEDS ORDERED: PIPERACILLIN SODIUM/TAZOBACTAM 3.375 GM in NORMAL SALINE 100 ML IV SCH ×2
[2019-07-12] MEDS: DIAZEPAM 5 MG TABLET PO SCH ×5 (00:08→23:28)
[2019-07-12] MEDS: PIPERACILLIN SODIUM/TAZOBACTAM 3.375 GM in NORMAL SALINE 100 ML IV SCH ×4 (03:37→20:11)
[2019-07-12 04:15] LABS: ABSOLUTE EOSINOPHILS # (AUTO) 0.1 10^3/uL (0.0-0.6); ABSOLUTE LYMPHOCYTES (AUTO) 2.6 10^3/uL (0.5-4.7); ABSOLUTE MONOCYTES (AUTO) 0.9 10^3/uL (0.1-1.4); ABSOLUTE NEUT (AUTO) 3.1 10^3/uL (1.7-8.2); BASOPHILS % (AUTO) 0.4 % (0-2); EOSINOPHILS % (AUTO) 1.8 % (0-6); HEMATOCRIT 29.8 % (37.9-51.0); HEMOGLOBIN 9.8 g/dL (13.5-17.0); LYMPHOCYTES % (AUTO) 38.5 % (13-45); MEAN CORPUSCULAR HEMOGLOBIN 29.4 pg (27.0-33.4); MEAN CORPUSCULAR HGB CONC 32.8 g/dL (32.0-36.0); MEAN CORPUSCULAR VOLUME 90 fl (80-97); MONOCYTES % (AUTO) 12.8 % (3-13); PLATELET COUNT 196 10^3/uL (150-450); RED BLOOD COUNT 3.32 10^6/uL (4.35-5.55); RED CELL DISTRIBUTION WIDTH 20.6 % (11.5-14.0); SEGMENTED NEUTROPHILS % (AUTO) 46.5 % (42-78); TOTAL CELLS COUNTED % (AUTO) 100 %; WHITE BLOOD COUNT 6.7 10^3/uL (4.0-10.5)
[2019-07-12 04:38] LABS: ANION GAP 6 (5-19); BLOOD UREA NITROGEN 5 mg/dL (7-20); CALCIUM 7.5 mg/dL (8.4-10.2); CARBON DIOXIDE 32 mmol/L (22-30); CHLORIDE 101 mmol/L (98-107); GLUCOSE 95 mg/dL (75-110)
--- NOTE | 2019-07-12 04:59 | RADIOLOGY REPORT (SQ) ---
CLINICAL HISTORY: pre op COMPARISON: None. TECHNIQUE: XR CHEST 1 VIEW 07/11/2019 12:00 AM CDT FINDINGS: Cardiac silhouette is normal in size. There is patchy bibasilar airspace disease. There is no pleural effusion. There is no pneumothorax. There are no acute osseous findings. IMPRESSION: Bibasilar airspace disease.
[2019-07-12] MEDS ORDERED: VANCOMYCIN HCL INJ 1000 MG VIAL IV PRN (05:49)
[2019-07-12] MEDS ORDERED: VANCOMYCIN HCL 2,000 MG in DEXTROSE 5%-WATER 500 ML IV ONE (06:00)
[2019-07-12] MEDS ORDERED: VANCOMYCIN HCL INJ 1000 MG VIAL ONE (06:07)
[2019-07-12] MEDS: PANTOPRAZOLE SODIUM 40 MG TABLET.DR PO SCH (06:35)
[2019-07-12] MEDS: HEPARIN SOD (PORCINE) 5,000 UNIT/ML 1 ML VIAL SUBCUT SCH ×3 (06:36→22:20)
[2019-07-12] MEDS ORDERED: POTASSIUM CHLORIDE 10 MEQ CAPSULE.ER PO ONE ×2 (07:00→18:00)
[2019-07-12] MEDS ORDERED: HYDROXYZINE HCL 10 MG TABLET PO PRN (08:19)
[2019-07-12] MEDS ORDERED: FOLIC ACID 1 MG TABLET PO SCH (10:00)
[2019-07-12] MEDS ORDERED: (PENDING PHARMACY ID) (Fluticasone/Salmeterol [Advair 250-50 Diskus 28 Dose] 1 INH) IH SCH (10:00)
[2019-07-12] MEDS ORDERED: (PENDING PHARMACY ID) (Mometasone Furoate [Nasonex] 1 SPRAY) NS SCH (10:00)
[2019-07-12] MEDS ORDERED: MULTIVITAMIN TABLET PO SCH (10:00)
[2019-07-12] MEDS ORDERED: (PENDING PHARMACY ID) (Cyanocobalamin (Vitamin B-12) [B-12] 500 MCG) PO SCH (10:00)
[2019-07-12] MEDS ORDERED: (PENDING PHARMACY ID) (Tiotropium Bromide [Spiriva Respimat] 2 PUFF) IH SCH (10:00)
[2019-07-12] MEDS ORDERED: VITAMIN B COMPLEX PO SCH (10:00)
[2019-07-12] MEDS ORDERED: (PENDING PHARMACY ID) (Naloxegol Oxalate [Movantik] 25 MG) PO SCH (10:00)
[2019-07-12] MEDS: NICOTINE 21 MG/24 HR PATCH.TD24 TD SCH (11:38)
[2019-07-12] MEDS: THIAMINE HCL 100 MG TABLET PO SCH (11:38)
[2019-07-12] MEDS: DOCUSATE SODIUM 100 MG CAPSULE PO SCH (11:39)
[2019-07-12] MEDS: RIVAROXABAN 10 MG TABLET PO SCH (12:09)
[2019-07-12] MEDS: LORATADINE 10 MG TABLET PO SCH (12:10)
[2019-07-12] MEDS: CYANOCOBALAMIN (VITAMIN B-12) 1,000 MCG TABLET PO SCH (12:10)
[2019-07-12] MEDS: ATORVASTATIN CALCIUM 40 MG TABLET PO SCH ×2 (12:10→22:24)
[2019-07-12] MEDS: FUROSEMIDE 20 MG TABLET PO SCH ×2 (12:10→17:17)
[2019-07-12] MEDS: FOLIC ACID 1 MG TABLET PO SCH (12:10)
[2019-07-12] MEDS: CHOLECALCIFEROL (D3) 1,000 UNIT (25 MCG) TABLET PO SCH (12:11)
[2019-07-12] MEDS: VANCOMYCIN HCL 1,500 MG in DEXTROSE 5%-WATER 250 ML IV SCH ×2 (14:30→22:19)
[2019-07-12] MEDS: PREGABALIN 75 MG CAPSULE PO SCH ×2 (14:30→22:21)
[2019-07-12] MEDS: FLUTICASONE NASAL SPRAY 50 MCG/SPRY 120 SPRAY/16 GM NASL SCH (14:31)
[2019-07-12] MEDS: MULTIVITAMIN TABLET PO SCH (14:31)
[2019-07-12] MEDS: FLUTICASONE/VILANTEROL 200-25 MCG/DOSE IH SCH (14:31)
--- NOTE | 2019-07-12 17:41 | Progress Note Acknowledgement ---
Progress Note Acknowledgement Progess Note Acknowledgement: I, the undersigned member of the medical staff with appropriate privileges and with supervisory authority over Ashley Cody, a [facility] allied health professional, acknowledge that I have reviewed the progress notes entered on this patient, and in my professional judgment believe that the assessment made and/or any care evidenced was appropriate
--- NOTE | 2019-07-12 17:41 | PDOC PROGRESS REPORT ---
Subjective Progress Note for:: 07/12/19 Subjective:: ANALY NEVAREZ is a 64 year old male, who is a poor historian but by medical record is confirmed to have a past medical history significant for Chronic respiratory failure with hypoxia (on home O2), lymphedema, opiate dependent chronic pain, COPD, CAD, DVT, PE, GERD, obesity, RONIT, alcohol and tobacco dependence who was admitted 07/11/2019 for bilateral lower extremity cellulitis. Next Patient was seen on morning rounds. He was found resting in bed comfortably on his baseline oxygen requirement. He tells me that he slept well overnight. He does continue to have bilateral lower extremity pain, although improved compared to yesterday. He also notes that the edema and erythema have improved. He denies fever, chills, chest pain, palpitations, dyspnea, abdominal pain, nausea vomiting and diarrhea. He has no questions or concerns at this time. No concerns per nursing. Reason For Visit: CELLULITIS Physical Exam Vital Signs: Temp Pulse Resp BP Pulse Ox 98.3 F 81 18 124/70 98 07/12/19 12:45 07/12/19 14:17 07/12/19 14:17 07/12/19 12:45 07/12/19 15:55 Intake & Output 07/11/19 07/12/19 07/13/19 06:59 06:59 06:59 Intake Total 1800 1690 Output Total 550 1000 Balance 1250 690 Weight 117.8 kg General appearance: PRESENT: no acute distress, cooperative, disheveled, obese, well-developed, well-nourished Head exam: PRESENT: atraumatic, normocephalic Eye exam: PRESENT: conjunctiva pink, EOMI, PERRLA. ABSENT: scleral icterus Ear exam: PRESENT: normal external ear exam Mouth exam: PRESENT: moist, tongue midline Teeth exam: PRESENT: poor dentation Neck exam: ABSENT: carotid bruit, JVD, lymphadenopathy, thyromegaly Respiratory exam: PRESENT: clear to auscultation lui, symmetrical, unlabored. ABSENT: rales, rhonchi, wheezes Cardiovascular exam: PRESENT: RRR, +S1, +S2. ABSENT: diastolic murmur, rubs, systolic murmur Pulses: PRESENT: normal dorsalis pedis pul Vascular exam: PRESENT: normal capillary refill GI/Abdominal exam: PRESENT: normal bowel sounds, soft. ABSENT: distended, guarding, mass, organolmegaly, rebound, tenderness Rectal exam: PRESENT: deferred Extremities exam: PRESENT: full ROM. ABSENT: calf tenderness, clubbing, pedal edema Neurological exam: PRESENT: alert, awake, oriented to person, oriented to place, oriented to time, oriented to situation, CN II-XII grossly intact. ABSENT: motor sensory deficit Psychiatric exam: PRESENT: appropriate affect, normal mood. ABSENT: homicidal ideation, suicidal ideation Skin exam: PRESENT: dry, warm. ABSENT: cyanosis, intact - lichenification, chronic venous stasis changes BLE. Severely edematous feet/toes. Purulent drainage between toes on Left. Venous stasis wound to medial left ankle/foot w/ central eschar and surrounding errythema, rash Results Laboratory Results: 07/12/19 03:28 07/12/19 03:28 07/11/19 07/11/19 07/11/19 14:25 14:25 21:00 WBC RBC Hgb Hct MCV MCH MCHC RDW Plt Count Seg Neutrophils % Sodium Potassium Chloride Carbon Dioxide Anion Gap BUN Creatinine Est GFR ( Amer) Glucose Lactic Acid 1.9 Calcium Magnesium 1.3 L C-Reactive Protein 43.3 H 07/12/19 07/12/19 07/12/19 03:28 03:28 03:28 WBC 6.7 RBC 3.32 L Hgb 9.8 L Hct 29.8 L MCV 90 MCH 29.4 MCHC 32.8 RDW 20.6 H Plt Count 196 Seg Neutrophils % 46.5 Sodium 138.8 Potassium 3.0 L* Chloride 101 Carbon Dioxide 32 H Anion Gap 6 BUN 5 L Creatinine 0.60 Est GFR ( Amer) > 60 Glucose 95 Lactic Acid Calcium 7.5 L Magnesium 1.8 C-Reactive Protein 07/11/19 16:00 Clean Catch Midstream Urine Culture - Final Mixed Urogenital Kimberly 07/11/19 15:20 NT-Pro-B Natriuret Pep 372 Impressions: Chest X-Ray 07/11/19 00:00 IMPRESSION: Bibasilar airspace disease. Foot X-Ray 07/11/19 15:38 IMPRESSION: No aggressive bony demineralization or periosteal new bone worrisome for osteomyelitis. Profound edema and skin thickening over both the right and left dorsal foot Assessment and Plan - Diagnosis (1) Bilateral cellulitis of lower leg Is this a current diagnosis for this admission?: Yes Plan: Improved; decreased erythema, edema, and tenderness to lower extremities today. Blood cultures are negative at 24 hours. Arterial and venous Doppler studies pending. ESR 88, 43.3 A1c 4.8 % Patient is admitted to the medical floor on continuous cardiac telemetry. He is empirically placed on IV vancomycin and Zosyn. He did receive a one-time IV Diflucan by the ED provider. Surgery is consulted; appreciate Dr. Calhoun's evaluation recommendations. Keep extremities elevated. (2) Stasis ulcer Qualifiers: Venous stasis ulcer site: ankle Varicose vein presence: unspecified whether present Laterality: left Is this a current diagnosis for this admission?: Yes Plan: Approximately 8 x 4 cm wound to the medial aspect of his foot just distal to the ankle with sloughing and central eschar. 1 inch border of surrounding erythema. Patient reports that it has worsened significantly over the previous 2 to 3 days. He denies fever. Cultures and antibiotics as above. Evaluation and management as above. (3) Anemia Qualifiers: Anemia type: unspecified type Qualified Code(s): D64.9 - Anemia, unsp ecified Is this a current diagnosis for this admission?: Yes Plan: Hemoglobin 0.8. Appears to be at baseline. Likely secondary to nutritional deficiencies and chronic alcohol use. No evidence of active bleeding. Continue multivitamin. (4) Alcohol dependence Is this a current diagnosis for this admission?: Yes Plan: No evidence of withdrawal today. Patient endorses heavy alcohol intake with history of alcohol withdrawal. Placed on scheduled Valium every 6 hours PRN Ativan for anxiety/agitation/withdrawal symptoms. He is provided folic acid, thiamine, and multivitamin supplementation. (5) Chronic respiratory failure with hypoxia, on home O2 therapy Is this a current diagnosis for this admission?: Yes Plan: Patient with a history of COPD, obesity, RONIT on home O2 at 4 L/min continuous use with CPAP at night. No evidence of COPD exacerbation at this time. Continue supplemental oxygen as needed to maintain oxygen saturations greater than 89%. CPAP nightly. (6) Tobacco use disorder Is this a current diagnosis for this admission?: Yes Plan: Smoking cessation encouraged; nicotine or placement therapies provided. (7) Obesity (BMI 35.0-39.9 without comorbidity) Is this a current diagnosis for this admission?: Yes Plan: BMI 38.4. Dietary discretion advised.
--- NOTE | 2019-07-12 19:22 | XCELERA REPORT ---
[address] [address] Lower Extremity Venous Evaluation Right Sided Venous Evaluation Lucent,spaces in subcutaneous tissues of the leg, suggesting edema, noted. Normal vessel filling wall to wall, compression and augmentation as well as Colour flow down to the infrageniculate veins. Left Sided Venous Evaluation Lucent,spaces in subcutaneous tissues of the leg, suggesting edema, noted. Normal vessel filling wall to wall, compression and augmentation as well as Colour flow down to the infrageniculate veins. Interpretation Summary No duplex evidence of DVT or obstruction in the bilateral lower extremities. Name: ANALY NEVAREZ Salvatore Age: 64 yrs Gender: Male : 1955 Patient Status: Inpatient [facility] Study Date: 07/12/2019 10:57 AM Reason For Study: BLE EDEMA, HX OF DVT Ordering Physician: WALKER CHAMORRO Performed By: Gokul Encarnacion : WALKER CHAMORRO > Aly Cruz
[2019-07-12] MEDS: OXYCODONE HCL IR 5 MG TABLET PO PRN (20:16)
--- NOTE | 2019-07-12 20:39 | Operative Report ---
Operative Report DATE OF SURGERY: 07/12/19 Operative Report: debridement of left ankle wound PREOPERATIVE DIAGNOSIS: necrotic tissue over left ankle wound with surrounding cellulitis POSTOPERATIVE DIAGNOSIS: same OPERATION: The patient was placed in supine position with the left leg slightly elevated while in bed. The necrotic tissue along the left medial malleolar area roughly measured about 2 cm wide by about 6 cm long. This necrotic tissue was sharply debrided using scalpel and scissors. Part of the necrotic tissue was full skin thickness but mostly is dry the exudate on top of 6 x 6 cm superficial wound. The blood supply appears to be very good. A layer of Xeroform gauze was laid on top of the wound and wrapped with sterile 4 x 4 Kerlix and Kodak bandage. Patient tolerated procedure well. SURGEON: MONSTER WAITE ANESTHESIA: Other - No anesthesia TISSUE REMOVED OR ALTERED: Necrotic tissue COMPLICATIONS: None ESTIMATED BLOOD LOSS: 1 cc INTRAOPERATIVE FINDINGS: Necrotic skin tissue and exudate PROCEDURE: Sharp debridement of necrotic skin and dried exudate along the left medial malleolar wound.
[2019-07-12] MEDS ORDERED: (PENDING PHARMACY ID) (Melatonin [Melatonin] 10 MG) PO SCH (22:00)
[2019-07-12] MEDS ORDERED: (PENDING PHARMACY ID) (Trazodone Hcl [Desyrel] 300 MG) PO SCH (22:00)
[2019-07-12] MEDS: TRAZODONE HCL 50 MG TABLET PO SCH (22:22)
[2019-07-12] MEDS: MELATONIN 5 MG TABLET PO SCH (22:24)
[2019-07-12] MEDS: MONTELUKAST SODIUM 10 MG TABLET PO SCH (22:24)
[2019-07-13] MEDS: PIPERACILLIN SODIUM/TAZOBACTAM 3.375 GM in NORMAL SALINE 100 ML IV SCH ×4 (02:23→20:25)
[2019-07-13] MEDS: OXYCODONE HCL IR 5 MG TABLET PO PRN ×4 (02:23→22:38)
[2019-07-13 04:54] LABS: ABSOLUTE BASOPHILS # (AUTO) 0.1 10^3/uL (0.0-0.2); ABSOLUTE EOSINOPHILS # (AUTO) 0.1 10^3/uL (0.0-0.6); ABSOLUTE NEUT (AUTO) 3.2 10^3/uL (1.7-8.2); BASOPHILS % (AUTO) 0.9 % (0-2); EOSINOPHILS % (AUTO) 1.9 % (0-6); HEMATOCRIT 27.8 % (37.9-51.0); HEMOGLOBIN 9.1 g/dL (13.5-17.0); LYMPHOCYTES % (AUTO) 40.6 % (13-45); MEAN CORPUSCULAR HEMOGLOBIN 29.2 pg (27.0-33.4); MEAN CORPUSCULAR HGB CONC 32.7 g/dL (32.0-36.0); MEAN CORPUSCULAR VOLUME 89 fl (80-97); MONOCYTES % (AUTO) 13.7 % (3-13); PLATELET COUNT 194 10^3/uL (150-450); RED BLOOD COUNT 3.11 10^6/uL (4.35-5.55); RED CELL DISTRIBUTION WIDTH 20.9 % (11.5-14.0); SEGMENTED NEUTROPHILS % (AUTO) 42.9 % (42-78); TOTAL CELLS COUNTED % (AUTO) 100 %; WHITE BLOOD COUNT 7.4 10^3/uL (4.0-10.5)
[2019-07-13 05:14] LABS: BLOOD UREA NITROGEN 7 mg/dL (7-20); CALCIUM 7.4 mg/dL (8.4-10.2); CARBON DIOXIDE 31 mmol/L (22-30); CHLORIDE 105 mmol/L (98-107); GLUCOSE 103 mg/dL (75-110)
[2019-07-13 05:24] LABS: ANION GAP 4 (5-19)
[2019-07-13] MEDS: PREGABALIN 75 MG CAPSULE PO SCH ×3 (05:33→21:22)
[2019-07-13] MEDS: DIAZEPAM 5 MG TABLET PO SCH ×4 (05:33→23:22)
[2019-07-13] MEDS: PANTOPRAZOLE SODIUM 40 MG TABLET.DR PO SCH ×2 (05:34→09:42)
[2019-07-13] MEDS: VANCOMYCIN HCL 1,500 MG in DEXTROSE 5%-WATER 250 ML IV SCH ×3 (05:34→21:18)
[2019-07-13] MEDS: HEPARIN SOD (PORCINE) 5,000 UNIT/ML 1 ML VIAL SUBCUT SCH ×3 (05:36→21:23)
[2019-07-13] MEDS ORDERED: POTASSIUM CHLORIDE 10 MEQ CAPSULE.ER PO ONE (08:30)
[2019-07-13] MEDS: NICOTINE 21 MG/24 HR PATCH.TD24 TD SCH (09:39)
[2019-07-13] MEDS: FLUTICASONE NASAL SPRAY 50 MCG/SPRY 120 SPRAY/16 GM NASL SCH (09:39)
[2019-07-13] MEDS: FLUTICASONE/VILANTEROL 200-25 MCG/DOSE IH SCH (09:40)
[2019-07-13] MEDS: THIAMINE HCL 100 MG TABLET PO SCH (09:41)
[2019-07-13] MEDS: CYANOCOBALAMIN (VITAMIN B-12) 1,000 MCG TABLET PO SCH (09:41)
[2019-07-13] MEDS: DOCUSATE SODIUM 100 MG CAPSULE PO SCH (09:41)
[2019-07-13] MEDS: FUROSEMIDE 20 MG TABLET PO SCH ×2 (09:41→18:03)
[2019-07-13] MEDS: CHOLECALCIFEROL (D3) 1,000 UNIT (25 MCG) TABLET PO SCH (09:41)
[2019-07-13] MEDS: RIVAROXABAN 10 MG TABLET PO SCH (09:42)
[2019-07-13] MEDS: MULTIVITAMIN TABLET PO SCH (09:42)
[2019-07-13] MEDS: FOLIC ACID 1 MG TABLET PO SCH (09:42)
[2019-07-13] MEDS: LORATADINE 10 MG TABLET PO SCH (09:42)
--- NOTE | 2019-07-13 16:56 | PDOC PROGRESS REPORT ---
Subjective Progress Note for:: 07/13/19 Subjective:: ANALY NEVAREZ is a 64 year old male, who is a poor historian but by medical record is confirmed to have a past medical history significant for Chronic respiratory failure with hypoxia (on home O2), lymphedema, opiate dependent chronic pain, COPD, CAD, DVT, PE, GERD, obesity, RONIT, alcohol and tobacco dependence who was admitted 07/11/2019 for bilateral lower extremity cellulitis. Next Patient was seen on morning rounds. He was found resting in bed comfortably on his baseline oxygen requirement. He tells me that he slept well overnight. He does continue to have bilateral lower extremity pain, increased today following bedside debridement, although does respond to pain medications. He notes that the edema and erythema have improved; states he is feeling optimistic. He denies fever, chills, chest pain, palpitations, dyspnea, abdominal pain, nausea vomiting and diarrhea. He has no questions or concerns at this time. No concerns per nursing. Reason For Visit: CELLULITIS Physical Exam Vital Signs: Temp Pulse Resp BP Pulse Ox 98.6 F 97 18 116/76 95 07/13/19 13:18 07/13/19 14:00 07/13/19 13:18 07/13/19 13:18 07/13/19 13:18 Intake & Output 07/12/19 07/13/19 07/14/19 06:59 06:59 06:59 Intake Total 1800 3540 350 Output Total 550 2850 Balance 1250 690 350 Weight 117.8 kg 116.3 kg General appearance: PRESENT: no acute distress, cooperative, disheveled, obese, well-developed, well-nourished Head exam: PRESENT: atraumatic, normocephalic Eye exam: PRESENT: conjunctiva pink, EOMI, PERRLA. ABSENT: scleral icterus Ear exam: PRESENT: normal external ear exam Mouth exam: PRESENT: moist, tongue midline Neck exam: ABSENT: carotid bruit, JVD, lymphadenopathy, thyromegaly Respiratory exam: PRESENT: clear to auscultation lui, symmetrical, unlabored, other - Baseline oxygen requirement. ABSENT: rales, rhonchi, wheezes Cardiovascular exam: PRESENT: RRR. ABSENT: diastolic murmur, rubs, systolic murmur Pulses: PRESENT: normal dorsalis pedis pul Vascular exam: PRESENT: normal capillary refill GI/Abdominal exam: PRESENT: normal bowel sounds, soft. ABSENT: distended, guarding, mass, organolmegaly, rebound, tenderness Rectal exam: PRESENT: deferred Extremities exam: PRESENT: full ROM. ABSENT: calf tenderness, clubbing, pedal edema Neurological exam: PRESENT: alert, awake, oriented to person, oriented to place, oriented to time, oriented to situation, CN II-XII grossly intact. ABSENT: motor sensory deficit Psychiatric exam: PRESENT: appropriate affect, normal mood. ABSENT: homicidal ideation, suicidal ideation Skin exam: PRESENT: dry, warm, other - lichenification, chronic venous stasis changes BLE. Severely edematous feet/toes. Purulent drainage between toes on Left. Wound to left medial foot not visualized; surgical dressing and Kodak wrap remain in place. ABSENT: cyanosis, intact, rash Results Laboratory Results: 07/13/19 04:39 07/13/19 04:39 07/13/19 07/13/19 04:39 04:39 WBC 7.4 RBC 3.11 L Hgb 9.1 L Hct 27.8 L MCV 89 MCH 29.2 MCHC 32.7 RDW 20.9 H Plt Count 194 Seg Neutrophils % 42.9 Sodium 139.8 Potassium 3.0 L* Chloride 105 Carbon Dioxide 31 H Anion Gap 4 L BUN 7 Creatinine 1.04 Est GFR ( Amer) > 60 Glucose 103 Calcium 7.4 L 07/11/19 15:20 NT-Pro-B Natriuret Pep 372 Impressions: Chest X-Ray 07/11/19 00:00 IMPRESSION: Bibasilar airspace disease. Foot X-Ray 07/11/19 15:38 IMPRESSION: No aggressive bony demineralization or periosteal new bone worriso me for osteomyelitis. Profound edema and skin thickening over both the right and left dorsal foot Assessment and Plan - Diagnosis (1) Bilateral cellulitis of lower leg Is this a current diagnosis for this admission?: Yes Plan: Improved; decreased erythema, edema, and tenderness to lower extremities today. Blood cultures and TTE. Arterial Doppler pending. Venous Doppler is negative for evidence of DVT or obstruction in the bilateral lower extremities. ESR 88, CRP 43.3 A1c 4.8 % Patient is admitted to the medical floor on continuous cardiac telemetry. He is empirically placed on IV vancomycin and Zosyn. He did receive a one-time IV Diflucan by the ED provider. Surgery is consulted; appreciate Dr. Calhoun's evaluation recommendations. Keep extremities elevated. (2) Stasis ulcer Qualifiers: Venous stasis ulcer site: ankle Varicose vein presence: unspecified whether present Laterality: left Is this a current diagnosis for this admission?: Yes Plan: Now S/P bedside debridement by surgery. Cultures and antibiotics as above. Evaluation and management as above. Wound care per surgery's expertise. (3) Anemia Qualifiers: Anemia type: unspecified type Qualified Code(s): D64.9 - Anemia, unspecified Is this a current diagnosis for this admission?: Yes Plan: Hemoglobin 9.1 Appears to be at baseline. Likely secondary to nutritional deficiencies and chronic alcohol use. No evidence of active bleeding. Continue multivitamin. (4) Alcohol dependence Is this a current diagnosis for this admission?: Yes Plan: No evidence of withdrawal today; patient denies symptoms. Patient endorses heavy alcohol intake with history of alcohol withdrawal. Continue scheduled Valium every 6 hours PRN Ativan for anxiety/agitation/withdrawal symptoms. He is provided folic acid, thiamine, and multivitamin supplementation. (5) Chronic respiratory failure with hypoxia, on home O2 therapy Is this a current diagnosis for this admission?: Yes Plan: Patient with a history of COPD, obesity, RONIT on home O2 at 4 L/min continuous use with CPAP at night. No evidence of COPD exacerbation at this time. Continue supplemental oxygen as needed to maintain oxygen saturations greater than 89%. CPAP nightly. (6) Tobacco use disorder Is this a current diagnosis for this admission?: Yes Plan: Smoking cessation encouraged; nicotine or placement therapies provided. (7) Obesity (BMI 35.0-39.9 without comorbidity) Is this a current diagnosis for this admission?: Yes Plan: BMI 38.4. Dietary discretion advised. (8) Hypokalemia Is this a current diagnosis for this admission?: Yes Plan: Home replacement provided. Monitor daily Chemistries. - Time Time Spent with patient: 15-24 minutes Medications reviewed and adjusted accordingly: Yes Anticipated discharge: Home with Homehealth
[2019-07-13] MEDS: TRAZODONE HCL 50 MG TABLET PO SCH (21:20)
[2019-07-13] MEDS: MELATONIN 5 MG TABLET PO SCH (21:21)
[2019-07-13] MEDS: MONTELUKAST SODIUM 10 MG TABLET PO SCH (21:22)
[2019-07-13] MEDS: ATORVASTATIN CALCIUM 40 MG TABLET PO SCH (21:22)
[2019-07-14] MEDS: PIPERACILLIN SODIUM/TAZOBACTAM 3.375 GM in NORMAL SALINE 100 ML IV SCH (02:37)
[2019-07-14 05:44] LABS: ABSOLUTE EOSINOPHILS # (AUTO) 0.3 10^3/uL (0.0-0.6); ABSOLUTE LYMPHOCYTES (AUTO) 2.5 10^3/uL (0.5-4.7); ABSOLUTE MONOCYTES (AUTO) 1.1 10^3/uL (0.1-1.4); ABSOLUTE NEUT (AUTO) 3.9 10^3/uL (1.7-8.2); BASOPHILS % (AUTO) 0.5 % (0-2); EOSINOPHILS % (AUTO) 3.4 % (0-6); HEMATOCRIT 28.4 % (37.9-51.0); HEMOGLOBIN 9.3 g/dL (13.5-17.0); LYMPHOCYTES % (AUTO) 31.7 % (13-45); MEAN CORPUSCULAR HEMOGLOBIN 29.5 pg (27.0-33.4); MEAN CORPUSCULAR HGB CONC 32.8 g/dL (32.0-36.0); MEAN CORPUSCULAR VOLUME 90 fl (80-97); MONOCYTES % (AUTO) 13.7 % (3-13); PLATELET COUNT 182 10^3/uL (150-450); RED BLOOD COUNT 3.16 10^6/uL (4.35-5.55); RED CELL DISTRIBUTION WIDTH 20.3 % (11.5-14.0); SEGMENTED NEUTROPHILS % (AUTO) 50.7 % (42-78); TOTAL CELLS COUNTED % (AUTO) 100 %; WHITE BLOOD COUNT 7.8 10^3/uL (4.0-10.5)
[2019-07-14 05:57] LABS: BLOOD UREA NITROGEN 10 mg/dL (7-20); CALCIUM 7.4 mg/dL (8.4-10.2); GLUCOSE 104 mg/dL (75-110); POTASSIUM 3.4 mmol/L (3.6-5.0)
[2019-07-14 06:03] LABS: ANION GAP 5 (5-19); CARBON DIOXIDE 28 mmol/L (22-30); CHLORIDE 104 mmol/L (98-107)
[2019-07-14] MEDS: DIAZEPAM 5 MG TABLET PO SCH ×4 (06:10→23:34)
[2019-07-14] MEDS: PANTOPRAZOLE SODIUM 40 MG TABLET.DR PO SCH ×2 (06:10→09:51)
[2019-07-14] MEDS: PREGABALIN 75 MG CAPSULE PO SCH ×3 (06:10→21:41)
[2019-07-14 06:12] LABS: VANCOMYCIN,TROUGH 56.3 ug/mL (5.0-20.0)
[2019-07-14] MEDS: HEPARIN SOD (PORCINE) 5,000 UNIT/ML 1 ML VIAL SUBCUT SCH ×3 (06:12→21:41)
[2019-07-14] MEDS: VANCOMYCIN HCL 1,500 MG in DEXTROSE 5%-WATER 250 ML IV SCH (06:12)
[2019-07-14] MEDS: OXYCODONE HCL IR 5 MG TABLET PO PRN ×3 (06:15→17:51)
[2019-07-14] MEDS: FUROSEMIDE 20 MG TABLET PO SCH ×2 (09:50→17:29)
[2019-07-14] MEDS: NICOTINE 21 MG/24 HR PATCH.TD24 TD SCH (09:50)
[2019-07-14] MEDS: DOCUSATE SODIUM 100 MG CAPSULE PO SCH (09:50)
[2019-07-14] MEDS: CHOLECALCIFEROL (D3) 1,000 UNIT (25 MCG) TABLET PO SCH (09:50)
[2019-07-14] MEDS: LORATADINE 10 MG TABLET PO SCH (09:50)
[2019-07-14] MEDS: FLUTICASONE/VILANTEROL 200-25 MCG/DOSE IH SCH (09:51)
[2019-07-14] MEDS: MULTIVITAMIN TABLET PO SCH (09:51)
[2019-07-14] MEDS: THIAMINE HCL 100 MG TABLET PO SCH (09:51)
[2019-07-14] MEDS: RIVAROXABAN 10 MG TABLET PO SCH (09:51)
[2019-07-14] MEDS: FLUTICASONE NASAL SPRAY 50 MCG/SPRY 120 SPRAY/16 GM NASL SCH (09:51)
[2019-07-14] MEDS: FOLIC ACID 1 MG TABLET PO SCH (09:51)
[2019-07-14] MEDS: CYANOCOBALAMIN (VITAMIN B-12) 1,000 MCG TABLET PO SCH (09:51)
--- NOTE | 2019-07-14 16:11 | PDOC PROGRESS REPORT ---
Subjective Progress Note for:: 07/14/19 Subjective:: ANALY NEVAREZ is a 64 year old male, who is a poor historian but by medical record is confirmed to have a past medical history significant for Chronic respiratory failure with hypoxia (on home O2), lymphedema, opiate dependent chronic pain, COPD, CAD, DVT, PE, GERD, obesity, RONIT, alcohol and tobacco dependence who was admitted 07/11/2019 for bilateral lower extremity cellulitis. Next Patient was seen on morning rounds. He was found resting in bed comfortably on his baseline oxygen requirement. was sleeping soundly; woke briefly, but quickly fell back to sleep. Does report continued left foot pain, but overall improved. Has noted decreased erythema/edema to right foot. He denies fever, chills, chest pain, palpitations, dyspnea, abdominal pain, nausea vomiting and diarrhea. He has no questions or concerns at this time. No concerns per nursing; report patient has been requesting to ambulate. Reason For Visit: CELLULITIS Physical Exam Vital Signs: Temp Pulse Resp BP Pulse Ox 98.5 F 98 18 115/65 98 07/14/19 11:36 07/14/19 14:00 07/14/19 11:36 07/14/19 11:36 07/14/19 11:36 Intake & Output 07/13/19 07/14/19 07/15/19 06:59 06:59 06:59 Intake Total 3540 1866 951 Output Total 2850 1450 Balance 690 416 951 Weight 116.3 kg 123.1 kg General appearance: PRESENT: no acute distress, cooperative, disheveled, morbidly obese, well-developed, well-nourished Head exam: PRESENT: atraumatic, normocephalic Eye exam: PRESENT: conjunctiva pink, EOMI, PERRLA. ABSENT: scleral icterus Ear exam: PRESENT: normal external ear exam Mouth exam: PRESENT: moist, tongue midline Neck exam: ABSENT: carotid bruit, JVD, lymphadenopathy, thyromegaly Respiratory exam: PRESENT: clear to auscultation lui, symmetrical, unlabored, other - baseline oxygen requirement. ABSENT: rales, rhonchi, wheezes Cardiovascular exam: PRESENT: RRR. ABSENT: diastolic murmur, rubs, systolic murmur Pulses: PRESENT: normal dorsalis pedis pul Vascular exam: PRESENT: normal capillary refill GI/Abdominal exam: PRESENT: normal bowel sounds, soft. ABSENT: distended, guarding, mass, organolmegaly, rebound, tenderness Rectal exam: PRESENT: deferred Extremities exam: PRESENT: full ROM, +2 edema - BLE; overall improved. ABSENT: calf tenderness, clubbing, pedal edema Neurological exam: PRESENT: alert, awake, oriented to person, oriented to place, oriented to time, oriented to situation, CN II-XII grossly intact, other - fatigued. ABSENT: motor sensory deficit Psychiatric exam: PRESENT: appropriate affect, normal mood. ABSENT: homicidal ideation, suicidal ideation Skin exam: PRESENT: dry, warm, other - lichenification, chronic venous stasis changes BLE. Severely edematous feet/toes. Wound to left medial foot not visualized; surgical dressing and Kodak wrap remain in place. ABSENT: cyanosis, rash Results Laboratory Results: 07/14/19 05:20 07/14/19 05:20 07/14/19 07/14/19 05:20 05:20 WBC 7.8 RBC 3.16 L Hgb 9.3 L Hct 28.4 L MCV 90 MCH 29.5 MCHC 32.8 RDW 20.3 H Plt Count 182 Seg Neutrophils % 50.7 Sodium 136.9 L Potassium 3.4 L Chloride 104 Carbon Dioxide 28 Anion Gap 5 BUN 10 Creatinine 2.36 H Est GFR ( Amer) 34 L Glucose 104 Calcium 7.4 L 07/11/19 15:20 NT-Pro-B Natriuret Pep 372 Impressions: Chest X-Ray 07/11/19 00:00 IMPRESSION: Bibasilar airspace disease. Foot X-Ray 07/11/19 15:38 IMPRESSION: No aggressive bony demineralization or periosteal new bone worrisome for osteomyelitis. Profound edema and skin thickening over both the right and left dorsal foot Assessment and Plan - Diagnosis (1) Bilateral cellulitis of lower leg Is this a current diagnosis for this admission?: Yes Plan: Improved; decreased erythema, edema, and tenderness to lower extremities today. Blood cultures and TTE. Arterial Doppler pending. Venous Doppler is negative for evidence of DVT or obstruction in the bilateral lower extremities. ESR 88, CRP 43.3 A1c 4.8 % Patient is admitted to the medical floor on continuous cardiac telemetry. He was empirically placed on IV vancomycin and Zosyn. Discontinued today secondary to Van trough >50 and CARMELA. Will discuss w/ surgery tomorrow; ideally will not require additional IV abx. He did receive a one-time IV Diflucan by the ED provider. Surgery is consulted; appreciate Dr. Calhoun's evaluation recommendations. Keep extremities elevated. (2) Stasis ulcer Qualifiers: Venous stasis ulcer site: ankle Varicose vein presence: unspecified whether present Laterality: left Is this a current diagnosis for this admission?: Yes Plan: Now S/P bedside debridement by surgery. Cultures and antibiotics as above. Evaluation and management as above. Wound care per surgery's expertise. May ambulate w/ post op shoe over Kodak on left (3) Anemia Qualifiers: Anemia type: unspecified type Qualified Code(s): D64.9 - Anemia, unspecified Is this a current diagnosis for this admission?: Yes Plan: Hemoglobin 9.3 Appears to be at baseline. Likely secondary to nutritional deficiencies and chronic alcohol use. No evidence of active bleeding. Continue multivitamin. (4) Alcohol dependence Is this a current diagnosis for this admission?: Yes Plan: No evidence of withdrawal today; patient denies symptoms. Patient endorses heavy alcohol intake with history of alcohol withdrawal. Continue scheduled Valium every 6 hours PRN Ativan for anxiety/agitation/withdrawal symptoms. He is provided folic acid, thiamine, and multivitamin supplementation. (5) Chronic respiratory failure with hypoxia, on home O2 therapy Is this a current diagnosis for this admission?: Yes Plan: Patient with a history of COPD, obesity, RONIT on home O2 at 4 L/min continuous use with CPAP at night. No evidence of COPD exacerbation at this time. Continue supplemental oxygen as needed to maintain oxygen saturations greater than 89%. CPAP nightly. (6) Tobacco use disorder Is this a current diagnosis for this admission?: Yes Plan: Smoking cessation encouraged; nicotine or placement therapies provided. (7) Obesity (BMI 35.0-39.9 without comorbidity) Is this a current diagnosis for this admission?: Yes Plan: BMI 38.4. Dietary discretion advised. (8) Hypokalemia Is this a current diagnosis for this admission?: Yes Plan: Impreoved; 3.4 today Monitor daily Chemistries. (9) CARMELA (acute kidney injury) Is this a current diagnosis for this admission?: Yes Plan: Creatinine of 2.36 today, baseline 0.60. Likely secondary to ATN related to IV vancomycin and Zosyn. Today the patient's Vanc trough was 56.3 Vancomycin and Zosyn are discontinued. Continue IV fluids. Daily chemistries. - Time Time Spent with patient: 25-34 minutes Medications reviewed and adjusted accordingly: Yes Anticipated discharge: Home Within: within 72 hours
[2019-07-14] MEDS: ATORVASTATIN CALCIUM 40 MG TABLET PO SCH (21:39)
[2019-07-14] MEDS: MELATONIN 5 MG TABLET PO SCH (21:40)
[2019-07-14] MEDS: MONTELUKAST SODIUM 10 MG TABLET PO SCH (21:40)
[2019-07-14] MEDS: TRAZODONE HCL 50 MG TABLET PO SCH (21:40)
[2019-07-15] MEDS: DIAZEPAM 5 MG TABLET PO SCH ×3 (05:20→17:06)
[2019-07-15] MEDS: PREGABALIN 75 MG CAPSULE PO SCH ×3 (05:20→21:34)
[2019-07-15] MEDS: PANTOPRAZOLE SODIUM 40 MG TABLET.DR PO SCH (05:20)
[2019-07-15] MEDS: HEPARIN SOD (PORCINE) 5,000 UNIT/ML 1 ML VIAL SUBCUT SCH ×3 (05:20→21:32)
[2019-07-15 05:40] LABS: HEMOGLOBIN 9.4 g/dL (13.5-17.0); MEAN CORPUSCULAR HEMOGLOBIN 29.1 pg (27.0-33.4); MEAN CORPUSCULAR HGB CONC 32.4 g/dL (32.0-36.0); MEAN CORPUSCULAR VOLUME 90 fl (80-97); PLATELET COUNT 172 10^3/uL (150-450); RED BLOOD COUNT 3.22 10^6/uL (4.35-5.55); RED CELL DISTRIBUTION WIDTH 20.5 % (11.5-14.0); WHITE BLOOD COUNT 7.6 10^3/uL (4.0-10.5)
[2019-07-15 05:59] LABS: ANION GAP 5 (5-19); BLOOD UREA NITROGEN 14 mg/dL (7-20); CALCIUM 8.4 mg/dL (8.4-10.2); CARBON DIOXIDE 28 mmol/L (22-30); CHLORIDE 103 mmol/L (98-107); GLUCOSE 99 mg/dL (75-110); POTASSIUM 3.8 mmol/L (3.6-5.0)
[2019-07-15] MEDS ORDERED: NORMAL SALINE 1000 ML 1,000 ML IV PRN (08:23)
[2019-07-15] MEDS: OXYCODONE HCL IR 5 MG TABLET PO PRN ×3 (08:23→21:35)
[2019-07-15] MEDS: FLUTICASONE NASAL SPRAY 50 MCG/SPRY 120 SPRAY/16 GM NASL SCH (10:04)
[2019-07-15] MEDS: NICOTINE 21 MG/24 HR PATCH.TD24 TD SCH (10:04)
[2019-07-15] MEDS: DOCUSATE SODIUM 100 MG CAPSULE PO SCH (10:05)
[2019-07-15] MEDS: CHOLECALCIFEROL (D3) 1,000 UNIT (25 MCG) TABLET PO SCH (10:05)
[2019-07-15] MEDS: RIVAROXABAN 10 MG TABLET PO SCH (10:05)
[2019-07-15] MEDS: MULTIVITAMIN TABLET PO SCH (10:05)
[2019-07-15] MEDS: CYANOCOBALAMIN (VITAMIN B-12) 1,000 MCG TABLET PO SCH (10:05)
[2019-07-15] MEDS: FOLIC ACID 1 MG TABLET PO SCH (10:07)
[2019-07-15] MEDS: FLUTICASONE/VILANTEROL 200-25 MCG/DOSE IH SCH (10:07)
[2019-07-15] MEDS: THIAMINE HCL 100 MG TABLET PO SCH (10:07)
[2019-07-15] MEDS: LORATADINE 10 MG TABLET PO SCH (10:07)
--- NOTE | 2019-07-15 15:06 | PDOC PROGRESS REPORT ---
Subjective Progress Note for:: 07/15/19 Subjective:: ANALY NEVAREZ is a 64 year old male, who is a poor historian but by medical record is confirmed to have a past medical history significant for Chronic respiratory failure with hypoxia (on home O2), lymphedema, opiate dependent chronic pain, COPD, CAD, DVT, PE, GERD, obesity, RONIT, alcohol and tobacco dependence who was admitted 07/11/2019 for bilateral lower extremity cellulitis. Patient was seen on morning rounds. He was found resting in bed comfortably on his baseline oxygen requirement. He reports he is feeling well today. He denies pain; reports that medications are more than adequate. He is asking for physical therapy consultation as he found that he was unable to ambulate more than 5 to 10 feet before becoming very weak yesterday. Otherwise, he denies fever, chills, chest pain, palpitations, dyspnea, abdominal pain, nausea vomiting and diarrhea. He has no questions or concerns at this time. No concerns per nursing. Reason For Visit: CELLULITIS Physical Exam Vital Signs: Temp Pulse Resp BP Pulse Ox 97.6 F 82 19 108/63 98 07/15/19 11:55 07/15/19 11:55 07/15/19 11:55 07/15/19 11:55 07/15/19 11:55 Intake & Output 07/14/19 07/15/19 07/16/19 06:59 06:59 06:59 Intake Total 1866 951 360 Output Total 1450 500 900 Balance 416 451 -540 Weight 123.1 kg 122.9 kg General appearance: PRESENT: no acute distress, cooperative, disheveled, morbidly obese, well-developed, well-nourished Head exam: PRESENT: atraumatic, normocephalic Eye exam: PRESENT: conjunctiva pink, EOMI, PERRLA. ABSENT: scleral icterus Ear exam: PRESENT: normal external ear exam Mouth exam: PRESENT: moist, tongue midline Teeth exam: PRESENT: poor dentation Neck exam: ABSENT: carotid bruit, JVD, lymphadenopathy, thyromegaly Respiratory exam: PRESENT: clear to auscultation lui, symmetrical, unlabored, other - Baseline oxygen requirement. ABSENT: rales, rhonchi, wheezes Cardiovascular exam: PRESENT: RRR, +S1, +S2. ABSENT: diastolic murmur, rubs, systolic murmur Pulses: PRESENT: normal dorsalis pedis pul Vascular exam: PRESENT: normal capillary refill GI/Abdominal exam: PRESENT: normal bowel sounds, soft. ABSENT: distended, guarding, mass, organolmegaly, rebound, tenderness Rectal exam: PRESENT: deferred Extremities exam: PRESENT: full ROM, +2 edema - BLE; overall improved. ABSENT: calf tenderness, clubbing, pedal edema Neurological exam: PRESENT: alert, awake, oriented to person, oriented to place, oriented to time, oriented to situation, CN II-XII grossly intact. ABSENT: motor sensory deficit Psychiatric exam: PRESENT: appropriate affect, normal mood. ABSENT: homicidal ideation, suicidal ideation Skin exam: PRESENT: dry, warm, other - lichenification, chronic venous stasis changes BLE. Severely edematous feet/toes. Wound to left medial foot not visualized; clean, dry dressing and Kodak wrap in place. ABSENT: cyanosis, intact, rash Results Laboratory Results: 07/15/19 05:11 07/15/19 05:11 07/15/19 07/15/19 07/15/19 05:11 05:11 05:11 WBC 7.6 RBC 3.22 L Hgb 9.4 L Hct 29.0 L MCV 90 MCH 29.1 MCHC 32.4 RDW 20.5 H Plt Count 172 Sodium 135.9 L Potassium 3.8 Chloride 103 Carbon Dioxide 28 Anion Gap 5 BUN 14 Creatinine 3.63 H Est GFR ( Amer) 21 L Glucose 99 Serum Osmolality 284 Calcium 8.4 07/11/19 15:20 NT-Pro-B Natriuret Pep 372 Impressions: Chest X-Ray 07/11/19 00:00 IMPRESSION: Bibasilar airspace disease. Foot X-Ray 07/11/19 15:38 IMPRESSION: No aggressive bony demineralization or periosteal new bone worrisome for osteomyelitis. Profound edema and skin thickening over both the right and left dorsal foot Assessment and Plan - Diagnosis (1) Bilateral cellulitis of lower leg Is this a current diagnosis for this admission?: Yes Plan: Improved; decreased erythema, edema, and tenderness to lower extremities today. Blood cultures are negative at 72 hours. Arterial Doppler pending. Venous Doppler is negative for evidence of DVT or obstruction in the bilateral lower extremities. ESR 88, CRP 43.3 A1c 4.8 % Patient is admitted to the medical floor on continuous cardiac telemetry. He was empirically placed on IV vancomycin and Zosyn. Discontinued yesterday secondary to Van trough >50 and CARMELA. Received 2 days of IV antibiotic therapy. Patient remains afebrile with a normal WBC. He did receive a one-time IV Diflucan by the ED provider. Surgery is consulted; appreciate Dr. Calhoun's evaluation recommendations. Keep extremities elevated. (2) Stasis ulcer Qualifiers: Venous stasis ulcer site: ankle Varicose vein presence: unspecified whether present Laterality: left Is this a current diagnosis for this admission?: Yes Plan: Now S/P bedside debridement by surgery. Cultures and antibiotics as above. Evaluation and management as above. Wound care per surgery's expertise. May ambulate w/ post op shoe over Kodak on left (3) Anemia Qualifiers: Anemia type: unspecified type Qualified Code(s): D64.9 - Anemia, unspecified Is this a current diagnosis for this admission?: Yes Plan: Hemoglobin 9.4 Appears to be at baseline. Likely secondary to nutritional deficiencies and chronic alcohol use. No evidence of active bleeding. Continue multivitamin. (4) Alcohol dependence Is this a current diagnosis for this admission?: Yes Plan: No evidence of withdrawal today; patient denies symptoms. Patient endorses heavy alcohol intake with history of alcohol withdrawal. Continue scheduled Valium every 6 hours PRN Ativan for anxiety/agitation/withdrawal symptoms. He is provided folic acid, thiamine, and multivitamin supplementation. (5) Chronic respiratory failure with hypoxia, on home O2 therapy Is this a current diagnosis for this admission?: Yes Plan: Patient with a history of COPD, obesity, RONIT on home O2 at 4 L/min continuous use with CPAP at night. No evidence of COPD exacerbation at this time. Continue supplemental oxygen as needed to maintain oxygen saturations greater than 89%. CPAP nightly. (6) Tobacco use disorder Is this a current diagnosis for this admission?: Yes Plan: Smoking cessation encouraged; nicotine or placement therapies provided. (7) Obesity (BMI 35.0-39.9 without comorbidity) Is this a current diagnosis for this admission?: Yes Plan: BMI 38.4. Dietary discretion advised. (8) Hypokalemia Is this a current diagnosis for this admission?: Yes Plan: Replete. Monitor daily Chemistries. (9) CARMELA (acute kidney injury) Is this a current diagnosis for this admission?: Yes Plan: Creatinine of 3.63 today, baseline 0.60. Likely secondary to ATN related to IV vancomycin and Zosyn. Yesterday the patient's Vanc trough was 56.3 Serum osmolarity is 284. Urine osmolarity and sodium pending. Vancomycin and Zosyn are discontinued. Continue IV fluids. Daily chemistries. - Time Time Spent with patient: 25-34 minutes Medications reviewed and adjusted accordingly: Yes Anticipated discharge: Home with Homehealth
[2019-07-15] MEDS: MELATONIN 5 MG TABLET PO SCH (21:34)
[2019-07-15] MEDS: TRAZODONE HCL 50 MG TABLET PO SCH (21:36)
[2019-07-15] MEDS: MONTELUKAST SODIUM 10 MG TABLET PO SCH (21:36)
[2019-07-15] MEDS: ATORVASTATIN CALCIUM 40 MG TABLET PO SCH (21:36)
[2019-07-16] MEDS: DIAZEPAM 5 MG TABLET PO SCH ×4 (00:48→17:24)
[2019-07-16 04:36] LABS: HEMATOCRIT 28.5 % (37.9-51.0); HEMOGLOBIN 9.4 g/dL (13.5-17.0); MEAN CORPUSCULAR HEMOGLOBIN 29.7 pg (27.0-33.4); MEAN CORPUSCULAR HGB CONC 32.8 g/dL (32.0-36.0); MEAN CORPUSCULAR VOLUME 90 fl (80-97); PLATELET COUNT 177 10^3/uL (150-450); RED BLOOD COUNT 3.15 10^6/uL (4.35-5.55); RED CELL DISTRIBUTION WIDTH 20.3 % (11.5-14.0); WHITE BLOOD COUNT 9.1 10^3/uL (4.0-10.5)
[2019-07-16 04:56] LABS: ANION GAP 5 (5-19); BLOOD UREA NITROGEN 15 mg/dL (7-20); CALCIUM 8.6 mg/dL (8.4-10.2); CARBON DIOXIDE 28 mmol/L (22-30); CHLORIDE 105 mmol/L (98-107); GLUCOSE 92 mg/dL (75-110); POTASSIUM 3.8 mmol/L (3.6-5.0)
[2019-07-16] MEDS: HEPARIN SOD (PORCINE) 5,000 UNIT/ML 1 ML VIAL SUBCUT SCH ×3 (05:25→21:15)
[2019-07-16] MEDS: PREGABALIN 75 MG CAPSULE PO SCH ×3 (05:25→21:14)
[2019-07-16] MEDS: PANTOPRAZOLE SODIUM 40 MG TABLET.DR PO SCH (05:26)
[2019-07-16] MEDS: OXYCODONE HCL IR 5 MG TABLET PO PRN (07:02)
[2019-07-16] MEDS: NORMAL SALINE 1000 ML 1,000 ML IV PRN (09:57)
[2019-07-16] MEDS: CHOLECALCIFEROL (D3) 1,000 UNIT (25 MCG) TABLET PO SCH (09:58)
[2019-07-16] MEDS: LORATADINE 10 MG TABLET PO SCH (09:58)
[2019-07-16] MEDS: RIVAROXABAN 10 MG TABLET PO SCH (09:58)
[2019-07-16] MEDS: CYANOCOBALAMIN (VITAMIN B-12) 1,000 MCG TABLET PO SCH (09:58)
[2019-07-16] MEDS: NICOTINE 21 MG/24 HR PATCH.TD24 TD SCH (09:58)
[2019-07-16] MEDS: DOCUSATE SODIUM 100 MG CAPSULE PO SCH (09:59)
[2019-07-16] MEDS: FLUTICASONE NASAL SPRAY 50 MCG/SPRY 120 SPRAY/16 GM NASL SCH (09:59)
[2019-07-16] MEDS: THIAMINE HCL 100 MG TABLET PO SCH (09:59)
[2019-07-16] MEDS: FOLIC ACID 1 MG TABLET PO SCH (09:59)
[2019-07-16] MEDS: MULTIVITAMIN TABLET PO SCH (09:59)
[2019-07-16] MEDS: FLUTICASONE/VILANTEROL 200-25 MCG/DOSE IH SCH (10:00)
--- NOTE | 2019-07-16 10:56 | PDOC PROGRESS REPORT ---
Subjective Progress Note for:: 07/16/19 Subjective:: 64 year old male, who is a poor historian but by medical record is confirmed to have a past medical history significant for Chronic respiratory failure with hypoxia (on home O2), lymphedema, opiate dependent chronic pain, COPD, CAD, DVT, PE, GERD, obesity, RONIT, alcohol and tobacco dependence who presented to the emergency department today with a complaint of worsening appearance of chronic wound to his left medial ankle; now with sloughing and purulent drainage, increased pain, and erythematous border. Patient reports that he has been seen by Dr. Cruz in the past, however, it has been more than a month since he has had an appointment. He is unable to tel l me with the current plan of therapy is. Evaluation in the emergency department revealed baseline anemia (hemoglobin 10.2), INR of 2.22 (home medication list shows Xarelto), hypokalemia (2.8) hyper magnesium (1.3), elevated lactic acid (3.8), negative urinalysis, and EKG demonstrating normal sinus rhythm. A right foot x-ray was negative for bony demineralization but does demonstrate profound edema of the skin over bilateral feet. Patient was provided IV vancomycin and Diflucan. He is referred to the hospitalist service for admission and management of the above-stated complaints and findings. [id number]-old male with multiple medical problems including chronic respiratory failure on home oxygen, lymphedema, chronic pain, COPD history of DVT, pulmonary embolism gastroparesis reflux disease obstructive sleep apnea tobacco abuse admitted for chronic wound on the left medial ankle. It is getting treated for bilateral lower leg cellulitis. Afebrile. T-max is 97.5. Denies any complaints. Reason For Visit: CELLULITIS Physical Exam Vital Signs: Temp Pulse Resp BP Pulse Ox 98.5 F 85 16 117/60 97 07/16/19 08:23 07/16/19 08:23 07/16/19 08:23 07/16/19 08:23 07/16/19 08:23 Intake & Output 07/15/19 07/16/19 07/17/19 06:59 06:59 06:59 Intake Total 951 1050 Output Total 500 1700 Balance 451 -650 Weight 122.9 kg 124.1 kg General appearance: PRESENT: no acute distress, cooperative Head exam: PRESENT: atraumatic Eye exam: PRESENT: PERRLA Mouth exam: PRESENT: moist, tongue midline Teeth exam: PRESENT: poor dentation Neck exam: ABSENT: carotid bruit, JVD, lymphadenopathy, thyromegaly Respiratory exam: PRESENT: decreased breath sounds Cardiovascular exam: PRESENT: RRR. ABSENT: diastolic murmur, rubs, systolic murmur GI/Abdominal exam: PRESENT: normal bowel sounds, soft. ABSENT: distended, guarding, mass, organolmegaly, rebound, tenderness Rectal exam: PRESENT: deferred Extremities exam: PRESENT: full ROM, +2 edema. ABSENT: calf tenderness, clubbing, pedal edema Neurological exam: PRESENT: alert, awake, oriented to person, oriented to place, oriented to time, oriented to situation, CN II-XII grossly intact. ABSENT: motor sensory deficit Psychiatric exam: PRESENT: appropriate affect, normal mood. ABSENT: homicidal ideation, suicidal ideation Skin exam: PRESENT: other - Lower extremity skin changes most likely secondary to chronic venous stasis. Results Laboratory Results: 07/16/19 04:02 07/16/19 04:02 07/15/19 07/16/19 07/16/19 05:11 04:02 04:02 WBC 9.1 RBC 3.15 L Hgb 9.4 L Hct 28.5 L MCV 90 MCH 29.7 MCHC 32.8 RDW 20.3 H Plt Count 177 Sodium 137.9 Potassium 3.8 Chloride 105 Carbon Dioxide 28 Anion Gap 5 BUN 15 Creatinine 4.52 H Est GFR ( Amer) 16 L Glucose 92 Serum Osmolality 284 Calcium 8.6 07/11/19 15:20 NT-Pro-B Natriuret Pep 372 Impressions: Chest X-Ray 07/11/19 00:00 IMPRESSION: Bibasilar airspace disease. Foot X-Ray 07/11/19 15:38 IMPRESSION: No aggressive bony demineralization or periosteal new bone worrisome for osteomyelitis. Profound edema and skin thickening over both the right and left dorsal foot Assessment and Plan - Diagnosis (1) Bilateral cellulitis of lower leg Is this a current diagnosis for this admission?: Yes Plan: Improved; decreased erythema, edema, and tenderness to lower extremities today. Blood cultures are negative at 72 hours. Arterial Doppler pending. Venous Doppler is negative for evidence of DVT or obstruction in the bilateral lower extremities. ESR 88, CRP 43.3 A1c 4.8 % Patient is admitted to the medical floor on continuous cardiac telemetry. He was empirically placed on IV vancomycin and Zosyn. Discontinued yesterday secondary to Van trough >50 and CARMELA. Received 2 days of IV antibiotic therapy. Patient remains afebrile with a normal WBC. He did receive a one-time IV Diflucan by the ED provider. Surgery is consulted; appreciate Dr. Calhoun's evaluation recommendations. Keep extremities elevated. 07/16/2019-patient admitted with bilateral lower extremity cellulitis still have 2+ edema. Venous Doppler is negative for DVT plan is to do the arterial Doppler today as recommended by the surgeons. Cultures are negative. Patient is not on antibiotics at this moment.. WBC is within normal limits. (2) Stasis ulcer Qualifiers: Venous stasis ulcer site: ankle Varicose vein presence: unspecified whether present Laterality: left Is this a current diagnosis for this admission?: Yes Plan: Now S/P bedside debridement by surgery. Cultures and antibiotics as above. Evaluation and management as above. Wound care per surgery's expertise. May ambulate w/ post op shoe over Kodak on left 07/16/2019-patient has a stasis ulcer status post debridement by surgery. Cultures are negative so far. Presently not on antibiotics afebrile and WBC count is within normal limits. (3) Anemia Qualifiers: Anemia type: unspecified type Qualified Code(s): D64.9 - Anemia, unspecified Is this a current diagnosis for this admission?: Yes Plan: Hemoglobin 9.4 Appears to be at baseline. Likely secondary to nutritional deficiencies and chronic alcohol use. No evidence of active bleeding. Continue multivitamin. 07/16/2019-patient hemoglobin is 9.4 at baseline. Anemia of chronic disease most likely secondary to chronic alcohol abuse and nutritional deficiencies. (4) Alcohol dependence Is this a current diagnosis for this admission?: Yes Plan: No evidence of withdrawal today; patient denies symptoms. Patient endorses heavy alcohol intake with history of alcohol withdrawal. Continue scheduled Valium every 6 hours PRN Ativan for anxiety/agitation/withdrawal symptoms. He is provided folic acid, thiamine, and multivitamin supplementation. (5) COPD (chronic obstructive pulmonary disease) Qualifiers: COPD type: chronic bronchitis Chronic bronchitis type: unspecified Qualified Code(s): J42 - Unspecified chronic bronchitis Is this a current diagnosis for this admission?: No Plan: 07/16/2019-patient has history of chronic COPD on home oxygen plan is to continue the present management. (6) CARMELA (acute kidney injury) Is this a current diagnosis for this admission?: Yes Plan: Creatinine of 3.63 today, baseline 0.60. Likely secondary to ATN related to IV vancomycin and Zosyn. Yesterday the patient's Vanc trough was 56.3 Serum osmolarity is 284. Urine osmolarity and sodium pending. Vancomycin and Zosyn are discontinued. Continue IV fluids. Daily chemistries. 07/16/2019-serum creatinine is continued to trending up to date is 4.52. Patient is nonoliguric. IV vancomycin and Zosyn are discontinued. Plan is to place a consult for nephrology today. - Time Time Spent with patient: 25-34 minutes Medications reviewed and adjusted accordingly: Yes Anticipated discharge: SNF
[2019-07-16] MEDS: MULTIVIT-STRESS FORMULA/ZINC TABLET PO SCH (12:13)
[2019-07-16] MEDS: OXYCODONE HCL IR 5 MG TABLET PO SCH ×2 (13:46→17:24)
[2019-07-16] MEDS: TRAZODONE HCL 50 MG TABLET PO SCH (21:12)
[2019-07-16] MEDS: MONTELUKAST SODIUM 10 MG TABLET PO SCH (21:13)
[2019-07-16] MEDS: MELATONIN 5 MG TABLET PO SCH (21:14)
[2019-07-16] MEDS: ATORVASTATIN CALCIUM 40 MG TABLET PO SCH (21:14)
[2019-07-17] MEDS: DIAZEPAM 5 MG TABLET PO SCH ×5 (00:38→23:21)
[2019-07-17] MEDS: OXYCODONE HCL IR 5 MG TABLET PO SCH ×5 (00:38→23:20)
[2019-07-17] MEDS: NORMAL SALINE 1000 ML 1,000 ML IV PRN (05:17)
[2019-07-17] MEDS: PANTOPRAZOLE SODIUM 40 MG TABLET.DR PO SCH (05:18)
[2019-07-17] MEDS: PREGABALIN 75 MG CAPSULE PO SCH ×3 (05:18→23:21)
[2019-07-17] MEDS: HEPARIN SOD (PORCINE) 5,000 UNIT/ML 1 ML VIAL SUBCUT SCH ×3 (05:21→23:22)
[2019-07-17] MEDS: RIVAROXABAN 10 MG TABLET PO SCH (09:24)
[2019-07-17] MEDS: MULTIVIT-STRESS FORMULA/ZINC TABLET PO SCH (09:24)
[2019-07-17] MEDS: CHOLECALCIFEROL (D3) 1,000 UNIT (25 MCG) TABLET PO SCH (09:24)
[2019-07-17] MEDS: MULTIVITAMIN TABLET PO SCH (09:25)
[2019-07-17] MEDS: LORATADINE 10 MG TABLET PO SCH (09:25)
[2019-07-17] MEDS: CYANOCOBALAMIN (VITAMIN B-12) 1,000 MCG TABLET PO SCH (09:25)
[2019-07-17] MEDS: FOLIC ACID 1 MG TABLET PO SCH (09:26)
[2019-07-17] MEDS: FLUTICASONE NASAL SPRAY 50 MCG/SPRY 120 SPRAY/16 GM NASL SCH (09:26)
[2019-07-17] MEDS: NICOTINE 21 MG/24 HR PATCH.TD24 TD SCH (09:26)
[2019-07-17] MEDS: THIAMINE HCL 100 MG TABLET PO SCH (09:26)
[2019-07-17] MEDS: DOCUSATE SODIUM 100 MG CAPSULE PO SCH (09:26)
[2019-07-17] MEDS: FLUTICASONE/VILANTEROL 200-25 MCG/DOSE IH SCH (09:26)
[2019-07-17] MEDS ORDERED: NYSTATIN TP SCH (10:00)
[2019-07-17 10:44] LABS: ABSOLUTE BASOPHILS # (AUTO) 0.1 10^3/uL (0.0-0.2); ABSOLUTE EOSINOPHILS # (AUTO) 0.2 10^3/uL (0.0-0.6); ABSOLUTE LYMPHOCYTES (AUTO) 2.8 10^3/uL (0.5-4.7); ABSOLUTE MONOCYTES (AUTO) 1.1 10^3/uL (0.1-1.4); ABSOLUTE NEUT (AUTO) 4.3 10^3/uL (1.7-8.2); EOSINOPHILS % (AUTO) 2.7 % (0-6); HEMOGLOBIN 9.6 g/dL (13.5-17.0); LYMPHOCYTES % (AUTO) 32.6 % (13-45); MEAN CORPUSCULAR HEMOGLOBIN 29.2 pg (27.0-33.4); MEAN CORPUSCULAR VOLUME 91 fl (80-97); MONOCYTES % (AUTO) 12.8 % (3-13); PLATELET COUNT 184 10^3/uL (150-450); RED BLOOD COUNT 3.29 10^6/uL (4.35-5.55); RED CELL DISTRIBUTION WIDTH 20.7 % (11.5-14.0); SEGMENTED NEUTROPHILS % (AUTO) 50.9 % (42-78); TOTAL CELLS COUNTED % (AUTO) 100 %; WHITE BLOOD COUNT 8.5 10^3/uL (4.0-10.5)
--- NOTE | 2019-07-17 10:44 | PDOC PROGRESS REPORT ---
Subjective Progress Note for:: 07/17/19 Subjective:: 64 year old male, who is a poor historian but by medical record is confirmed to have a past medical history significant for Chronic respiratory failure with hypoxia (on home O2), lymphedema, opiate dependent chronic pain, COPD, CAD, DVT, PE, GERD, obesity, RONIT, alcohol and tobacco dependence who presented to the emergency department today with a complaint of worsening appearance of chronic wound to his left medial ankle; now with sloughing and purulent drainage, increased pain, and erythematous border. Patient reports that he has been seen by Dr. Cruz in the past, however, it has been more than a month since he has had an appointment. He is unable to tel l me with the current plan of therapy is. Evaluation in the emergency department revealed baseline anemia (hemoglobin 10.2), INR of 2.22 (home medication list shows Xarelto), hypokalemia (2.8) hyper magnesium (1.3), elevated lactic acid (3.8), negative urinalysis, and EKG demonstrating normal sinus rhythm. A right foot x-ray was negative for bony demineralization but does demonstrate profound edema of the skin over bilateral feet. Patient was provided IV vancomycin and Diflucan. He is referred to the hospitalist service for admission and management of the above-stated complaints and findings. 07/[id number]-ndur-old male with multiple medical problems including chronic respiratory failure on home oxygen, lymphedema, chronic pain, COPD history of DVT, pulmonary embolism gastroparesis reflux disease obstructive sleep apnea tobacco abuse admitted for chronic wound on the left medial ankle. It is getting treated for bilateral lower leg cellulitis. Afebrile. T-max is 97.5. Denies any complaints. 07/17/2019 -64-year-old with multiple medical problems including COPD on home oxygen, opiate dependency chronic pain, COPD, coronary artery disease, DVT, PE, gastric further reflux disease, obesity, obstructive sleep apnea admitted for chronic wound on the left medial ankle status post debridement done on 07/12/2019. Physical therapy is working with the patient. Afebrile. Reason For Visit: CELLULITIS Physical Exam Vital Signs: Temp Pulse Resp BP Pulse Ox 98.4 F 87 17 104/62 97 07/16/19 23:40 07/17/19 02:00 07/16/19 23:40 07/16/19 23:40 07/17/19 00:18 Intake & Output 07/16/19 07/17/19 07/18/19 06:59 06:59 06:59 Intake Total 1050 2791 Output Total 1700 Balance -650 2791 Weight 124.1 kg 126.9 kg General appearance: PRESENT: no acute distress, cooperative Head exam: PRESENT: atraumatic Eye exam: PRESENT: PERRLA Mouth exam: PRESENT: moist, tongue midline Teeth exam: PRESENT: poor dentation Neck exam: ABSENT: carotid bruit, JVD, lymphadenopathy, thyromegaly Respiratory exam: PRESENT: decreased breath sounds Cardiovascular exam: PRESENT: RRR. ABSENT: diastolic murmur, rubs, systolic murmur GI/Abdominal exam: PRESENT: normal bowel sounds, soft. ABSENT: distended, guarding, mass, organolmegaly, rebound, tenderness Extremities exam: PRESENT: +2 edema Neurological exam: PRESENT: alert, awake, oriented to person, oriented to place, oriented to time, oriented to situation, CN II-XII grossly intact. ABSENT: motor sensory deficit Psychiatric exam: PRESENT: appropriate affect, normal mood. ABSENT: homicidal ideation, suicidal ideation Results Laboratory Results: 07/16/19 04:02 07/16/19 04:02 07/11/19 15:29 Blood Blood Culture - Final NO GROWTH IN 5 DAYS 07/11/19 15:20 Blood Blood Culture - Final NO GROWTH IN 5 DAYS 07/11/19 15:20 NT-Pro-B Natriuret Pep 372 Impressions: Chest X-Ray 07/11/19 00:00 IMPRESSION: Bibasilar airspace disease. Foot X-Ray 07/11/19 15:38 IMPRESSION: No aggressive bony demineralization or periosteal new bone worrisome for osteomyelitis. Profound edema and skin thickening over both the right and left dorsal foot Assessment and Plan - Diagnosis (1) Bilateral cellulitis of lower leg Is this a current diagnosis for this admission?: Yes Plan: Improved; decreased erythema, edema, and tenderness to lower extremities today. Blood cultures are negative at 72 hours. Arterial Doppler pending. Venous Doppler is negative for evidence of DVT or obstruction in the bilateral lower extremities. ESR 88, CRP 43.3 A1c 4.8 % Patient is admitted to the medical floor on continuous cardiac telemetry. He was empirically placed on IV vancomycin and Zosyn. Discontinued yesterday secondary to Van trough >50 and CARMELA. Received 2 days of IV antibiotic therapy. Patient remains afebrile with a normal WBC. He did receive a one-time IV Diflucan by the ED provider. Surgery is consulted; appreciate Dr. Calhoun's evaluation recommendations. Keep extremities elevated. 07/16/2019-patient admitted with bilateral lower extremity cellulitis still have 2+ edema. Venous Doppler is negative for DVT plan is to do the arterial Doppler today as recommended by the surgeons. Cultures are negative. Patient is not on antibiotics at this moment.. WBC is within normal limits. 07/17/2019-patient admitted with bilateral cellulitis status post debridement of the necrotic wound on the left ankle. Physical therapy is working with the patient. Cultures are negative so far. WBC count within normal limits. Doppler is negative for DVTs. Arterial Dopplers pending. Patient says is extremely weak and unable to ambulate he prefers to stay at least another day. (2) Stasis ulcer Qualifiers: Venous stasis ulcer site: ankle Varicose vein presence: unspecified whether present Laterality: left Is this a current diagnosis for this admission?: Yes Plan: Now S/P bedside debridement by surgery. Cultures and antibiotics as above. Evaluation and management as above. Wound care per surgery's expertise. May ambulate w/ post op shoe over Kodak on left 07/16/2019-patient has a stasis ulcer status post debridement by surgery. Cultures are negative so far. Presently not on antibiotics afebrile and WBC count is within normal limits. 07/17/2019-patient has a status ulcer status post debridement. Cultures are negative so far. Afebrile. Presently not on antibiotics. Physical therapy is working with the patient. Patient said he is extremely weak unable to get up and walk prefers to stay at least another day. (3) Anemia Qualifiers: Anemia type: unspecified type Qualified Code(s): D64.9 - Anemia, unspecified Is this a current diagnosis for this admission?: Yes Plan: Hemoglobin 9.4 Appears to be at baseline. Likely secondary to nutritional deficiencies and chronic alcohol use. No evidence of active bleeding. Continue multivitamin. 07/16/2019-patient hemoglobin is 9.4 at baseline. Anemia of chronic disease most likely secondary to chronic alcohol abuse and nutritional deficiencies. 07/17/2019-latest hemoglobin is 9.4 stable. Today's labs are pending. (4) Alcohol dependence Is this a current diagnosis for this admission?: Yes (5) COPD (chronic obstructive pulmonary disease) Qualifiers: COPD type: chronic bronchitis Chronic bronchitis type: unspecified Qualified Code(s): J42 - Unspecified chronic bronchitis Is this a current diagnosis for this admission?: No (6) CARMELA (acute kidney injury) Is this a current diagnosis for this admission?: Yes Plan: Creatinine of 3.63 today, baseline 0.60. Likely secondary to ATN related to IV vancomycin and Zosyn. Yesterday the patient's Vanc trough was 56.3 Serum osmolarity is 284. Urine osmolarity and sodium pending. Vancomycin and Zosyn are discontinued. Continue IV fluids. Daily chemistries. 07/16/2019-serum creatinine is continued to trending up to date is 4.52. Patient is nonoliguric. IV vancomycin and Zosyn are discontinued. Plan is to place a consult for nephrology today. 07/17/2019-patient is nonoliguric creatinine went up to 4.5 yesterday. Not on antibiotics. Nephrology consult was requested to request a renal ultrasound today. - Time Time Spent with patient: 15-24 minutes Medications reviewed and adjusted accordingly: Yes Anticipated discharge: Home with Homehealth
[2019-07-17 11:13] LABS: ALBUMIN 2.5 g/dL (3.5-5.0); ALKALINE PHOSPHATASE 137 U/L (38-126); ANION GAP 8 (5-19); ASPARTATE AMINO TRANSFERASE 50 U/L (17-59); BILIRUBIN,DIRECT 0.5 mg/dL (0.0-0.4); BILIRUBIN,TOTAL 0.5 mg/dL (0.2-1.3); BLOOD UREA NITROGEN 17 mg/dL (7-20); CALCIUM 8.8 mg/dL (8.4-10.2); CARBON DIOXIDE 25 mmol/L (22-30); CHLORIDE 106 mmol/L (98-107); GLUCOSE 86 mg/dL (75-110); POTASSIUM 4.3 mmol/L (3.6-5.0); TOTAL PROTEIN 6.8 g/dL (6.3-8.2)
[2019-07-17] MEDS: NYSTATIN TOPICAL POWDER 15 GM TP SCH (14:28)
--- NOTE | 2019-07-17 16:53 | PDOC CONSULTATION ---
Consultation Consult Date: 07/17/19 Provider Consulted: NIKOLAI TRAVIS Consult reason:: I was sked to see the patient due to Acute worsening kidney function. History of Present Illness Admission Date/PCP: 07/11/19 18:11 DAVID WARNER MD History of Present Illness: ANALY NEVAREZ is a 64 year old gentleman with history of alcohol dependence, chronic lymphedema, COPD on home oxygen, coronary artery disease, DVT/PE, and obstructive sleep apnea who was admitted on 07/11/2019 due to wo rsening chronic wound of the left medial ankle with purulent drainage. Patient had debridement on July 12, 2019. Patient then was started on IV vancomycin and IV Zosyn which were given from July 11 to July 14. On July 14 the vancomycin trough level was found to be 56.3 so the vancomycin was ultimately discontinued as well as the IV Zosyn. In terms of the kidney function patient came in with normal kidney function on July 11 with a BUN of 6, creatinine of 0.6 and EGFR of greater than 60. On July 13 he had a BUN of 7, creatinine of 1.04 and EGFR is greater than 60. On July 14 his creatinine went up to BUN of 10, creatinine of 2.36 with EGFR of 28 and yesterday he had a BUN of 15, creatinine of 4.52 with a EGFR of 13. Today he has a BUN of 17, creatinine of 5.37 with EGFR of 11. Patient remains to be nonoliguric with urine output for the past 24 hours of 1700 mL. His electrolytes are still acceptable. Patient denies any problems with his kidneys in the past. He denies any history of kidney stones. He also denies any problems with urination. 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 His last drink was on the day of admission. Patient said that he has good appetite and is drinking fluids. He does admit to feeling tired all the time and that has not changed. He denies any nausea, nor vomiting. Past Medical History Cardiac Medical History: Reports: Coronary Artery Disease, DVT, Hyperlipidemia, Myocardial Infarction, Peripheral Vascular Disease, Pulmonary Embolism Pulmonary Medical History: Reports: Asthma, Bronchitis, Chronic Obstructive Pulmonary Disease (COPD), Pneumonia, Respiratory Failure, Sleep Apnea - Uses CPAP at home Endocrine Medical History: Reports: Obesity GI Medical History: Reports: Cirrhosis - Alcoholic, Gastroesophageal Reflux Disease, Hiatal Hernia Psychiatric Medical History: Reports: Alcohol Dependency, Tobacco Dependency Infectious Medical History: Reports: Methicillin-resist Staph Aureus, Vancomycin-resistant Enterococci - Recurrent cellulitis of right lower extremity Past Surgical History Past Surgical History: Reports: Cardiac Catheterization - stent x1, Cholecystectomy, Herniorrhaphy - mesh, Orthopedic Surgery - multiple back, Tonsillectomy, Vascular Surgery - filter placed, pt unsure where, Other - He had ventral hernia followed by [facility] at [facility] few years ago Social History Information Source: [facility] Records Lives with: Friend Smoking Status: Current Every Day Smoker Cigarettes Packs Per Day: 2 Number of Years Smokin Last Time Smoked: 07/11/19 Frequency of Alcohol Use: Heavy Hx Recreational Drug Use: Yes Drugs: Marijuana Hx Prescription Drug Abuse: No - Advance Directive Resuscitation Status: Full Code Family History Family History: Hypertension - Father Parental Family History Reviewed: Yes Children Family History Reviewed: NA Sibling(s) Family History Reviewed.: Yes Medication/Allergy Home Medications: Atorvastatin Calcium 40 mg PO DAILY 06/07/18 Cholecalciferol (Vitamin D3) [Vitamin D3 5000 unit Capsule] 5,000 unit PO DAILY 06/07/18 Docusate Sodium [Colace] 100 mg PO BID 06/07/18 Fluticasone/Salmeterol [Advair 250-50 Diskus 28 dose] 1 inh IH Q12 06/07/18 Folic Acid [Folvite 1 mg Tablet] 1 mg PO DAILY 06/07/18 Furosemide [Lasix 20 mg Tablet] 20 mg PO BID 06/07/18 Loratadine [Claritin] 10 mg PO DAILY 06/07/18 Melatonin 10 mg PO QHS 06/07/18 Mometasone Furoate [Nasonex] 1 spray NS Q12 06/07/18 Montelukast Sodium [Singulair 10 mg Tablet] 10 mg PO QHS 06/07/18 Multivitamin [Multiple Vitamins] 1 each PO DAILY 06/07/18 Naloxegol Oxalate [Movantik] 25 mg PO DAILY 06/07/18 Omeprazole 40 mg PO DAILY 06/07/18 Oxycodone HCl [Oxycodone HCl 10 MG Tablet] 10 mg PO Q6 06/07/18 Pregabalin [Lyrica] 150 mg PO Q8 06/07/18 Rivaroxaban [Xarelto] 20 mg PO DAILY 06/07/18 Tiotropium [place] [Spiriva Respimat] 2 puff IH DAILY 06/07/18 Tramadol HCl [Ultram] 50 mg PO TIDP PRN 06/07/18 Trazodone HCl [Desyrel] 300 mg PO QHS 06/07/18 Vitamin B Complex [Vitamin B Complex-100] 1 each PO DAILY 06/07/18 Albuterol Sulfate [Proair Hfa Inhalation Aerosol 8.5 gm Mdi] 1 puff IH Q4 PRN 07/11/19 Albuterol Sulfate [Ventolin 0.083% Neb 2.5 mg/3 ml Ampul] 1 vial NEB TID 07/11/19 Cyanocobalamin (Vitamin B-12) [B-12] 500 mcg PO DAILY 07/11/19 Hydroxyzine HCl [Atarax 10 mg Tablet] 10 mg PO TID PRN 07/11/19 Ipratropium [place] [Atrovent 0.02% Neb 0.5 Mg/2.5 Ml Vial.Neb] 0.5 mg IH TID 07/11/19 Nystatin 1 each TP DAILY 07/11/19 Allergies/Adverse Reactions: cephalexin monohydrate [From Keflex] Allergy (Intermediate, Verified 06/08/16 08:54) codeine Allergy (Verified 06/08/16 08:54) morphine Allergy (Verified 06/08/16 08:54) Review of Systems All systems: reviewed and no additional remarkable complaints except as stated Review of Systems: Constitutional: ABSENT: chills, fatigue, fever(s), headache(s), weight gain, weight loss; admits fatigue Eyes: ABSENT: visual disturbances Ears: ABSENT: hearing changes Cardiovascular: ABSENT: chest pain, dyspnea on exertion, orthropnea, palpitations; admits chronic lymphedema Respiratory: ABSENT: cough, dyspnea, hemoptysis Gastrointestinal: ABSENT: abdominal pain, constipation, diarrhea, hematemesis, hematochezia, nausea, vomiting Genitourinary: ABSENT: dysuria, hematuria Musculoskeletal: ABSENT: joint swelling Integumentary: ABSENT: rash; admits chronic left ankle wound Neurological: ABSENT: abnormal gait, abnormal speech, confusion, dizziness, focal weakness, numbness, syncope Psychiatric: ABSENT: anxiety, depression Endocrine: ABSENT: cold intolerance, heat intolerance, polydipsia, polyuria Hematologic/Lymphatic: ABSENT: easy bleeding, easy bruising, lymphadenopathy Physical Exam Vital Signs: Temp Pulse Resp BP Pulse Ox 97.5 F 72 16 116/56 L 94 07/17/19 07:52 07/17/19 07:52 07/17/19 07:52 07/17/19 07:52 07/17/19 07:52 Intake & Output 07/16/19 07/17/19 07/18/19 06:59 06:59 06:59 Intake Total 1050 2791 Output Total 1700 Balance -650 2791 Weight 124.1 kg 126.9 kg Exam: General appearance: No acute distress, cooperative, well-developed, well- nourished Head exam: PRESENT: atraumatic, normocephalic Eye exam: PRESENT: Conjunctiva slightly pale, EOMI, PERRLA. ABSENT: conjunctival injection, scleral icterus Mouth exam: PRESENT: moist, neck supple, tongue midline Neck exam: PRESENT: full ROM. ABSENT: carotid bruit, JVD, lymphadenopathy, thyromegaly Respiratory exam: PRESENT: Diminished to auscultation bilaterally. Occasional b it basal crackles ABSENT: Rhonchi, stridor, wheezes Cardiovascular exam: PRESENT: RRR, +S1, +S2. ABSENT: systolic murmur Pulses: PRESENT: normal radial pulses, normal dorsalis pedis pulses GI/Abdominal exam: PRESENT: normal bowel sounds, soft. ABSENT: guarding, mass, tenderness Rectal exam: Deferred Extremities exam: PRESENT: full ROM. Grade 2 bilateral lower extremity chronic lymphedema ABSENT: calf tenderness Musculoskeletal: PRESENT: full ROM. ABSENT: deformity Neurological exam: PRESENT: alert, Awake, Oriented to person, Oriented to place, Oriented to time, reflexes normal, CN II-XII grossly intact. ABSENT: motor sensory deficit Psychiatric exam: PRESENT: appropriate affect, normal mood. ABSENT: homicidal ideation, suicidal ideation Skin exam: PRESENT: intact, dry, warm. Left ankle wound is currently with wound dressing and Kodak wrap. ABSENT: rash Results Laboratory Results: 07/17/19 10:04 07/17/19 10:04 WBC 8.5 RBC 3.29 L Hgb 9.6 L Hct 30.0 L MCV 91 MCH 29.2 MCHC 32.0 RDW 20.7 H Plt Count 184 Seg Neutrophils % 50.9 07/11/19 15:29 Blood Blood Culture - Final NO GROWTH IN 5 DAYS 07/11/19 15:20 Blood Blood Culture - Final NO GROWTH IN 5 DAYS 07/11/19 15:20 NT-Pro-B Natriuret Pep 372 Impressions: Chest X-Ray 07/11/19 00:00 IMPRESSION: Bibasilar airspace disease. Foot X-Ray 07/11/19 15:38 IMPRESSION: No aggressive bony demineralization or periosteal new bone worrisome for osteomyelitis. Profound edema and skin thickening over both the right and left dorsal foot Assessment & Plan - Diagnosis (1) CARMELA (acute kidney injury) Is this a current diagnosis for this admission?: Yes Plan: This is most likely secondary to vancomycin toxicity causing ATN. A contributory factor is a possibility of interstitial nephritis with a combination of IV Zosyn and IV vancomycin. Patient is currently nonoliguric and nonuremic without any evidence of fluid overload. Currently there is no indication for any acute emergent renal replacement therapy. Discussed with the patient the course of CARMELA and inform him that his kidney function can get worse first before it gets better and if it comes to the point that he starts having some uremic symptoms or electrolyte abnormalities that cannot be medically treated than renal replacement therapy is warranted. Discussed briefly with the patient about how the renal replacement therapy in the form of hemodialysis is done including placement of a temporary dialysis catheter. Patient indicates that if he needs it he would agree to have it done. Continue to monitor kidney function. Avoid nephrotoxic medications. Agree with discontinuation of IV Zosyn and vancomycin promptly. Maintain euvolemia. Monitor intake and output. (2) Bilateral cellulitis of lower leg Is this a current diagnosis for this admission?: Yes (3) Stasis ulcer Qualifiers: Venous stasis ulcer site: ankle Varicose vein presence: unspecified whether present Laterality: left Is this a current diagnosis for this admission?: Yes (4) Alcohol dependence Is this a current diagnosis for this admission?: Yes (5) Anemia Qualifiers: Anemia type: unspecified type Qualified Code(s): D64.9 - Anemia, unspecified Is this a current diagnosis for this admission?: Yes - Notes Notes: Thank you very much for this consultation. I will follow the patient with you. - Time Time Spent: Greater than 70 Minutes
[2019-07-17] MEDS: TRAZODONE HCL 50 MG TABLET PO SCH (23:20)
[2019-07-17] MEDS: ATORVASTATIN CALCIUM 40 MG TABLET PO SCH (23:21)
[2019-07-17] MEDS: MELATONIN 5 MG TABLET PO SCH (23:21)
[2019-07-17] MEDS: MONTELUKAST SODIUM 10 MG TABLET PO SCH (23:22)
--- NOTE | 2019-07-18 04:32 | RADIOLOGY REPORT (SQ) ---
CLINICAL HISTORY: renal failure COMPARISON: None. TECHNIQUE: US RETROPERITONEUM on 07/17/2019 12:00 AM CDT FINDINGS: Right kidney measures 12.7 cm and left kidney measures 14 cm. There is no hydronephrosis. There are no renal calculi. Urinary bladder is unremarkable. IMPRESSION: Normal study.
[2019-07-18] MEDS: DIAZEPAM 5 MG TABLET PO SCH ×3 (05:19→18:49)
[2019-07-18] MEDS: PANTOPRAZOLE SODIUM 40 MG TABLET.DR PO SCH (05:20)
[2019-07-18] MEDS: PREGABALIN 75 MG CAPSULE PO SCH ×2 (05:20→18:48)
[2019-07-18] MEDS: OXYCODONE HCL IR 5 MG TABLET PO SCH ×3 (05:20→18:49)
[2019-07-18] MEDS: HEPARIN SOD (PORCINE) 5,000 UNIT/ML 1 ML VIAL SUBCUT SCH (05:21)
[2019-07-18 06:25] LABS: ABSOLUTE EOSINOPHILS # (AUTO) 0.1 10^3/uL (0.0-0.6); ABSOLUTE LYMPHOCYTES (AUTO) 2.1 10^3/uL (0.5-4.7); ABSOLUTE MONOCYTES (AUTO) 1.2 10^3/uL (0.1-1.4); ABSOLUTE NEUT (AUTO) 5.5 10^3/uL (1.7-8.2); BASOPHILS % (AUTO) 0.4 % (0-2); EOSINOPHILS % (AUTO) 1.3 % (0-6); HEMATOCRIT 29.6 % (37.9-51.0); HEMOGLOBIN 9.5 g/dL (13.5-17.0); LYMPHOCYTES % (AUTO) 23.1 % (13-45); MEAN CORPUSCULAR HEMOGLOBIN 29.2 pg (27.0-33.4); MEAN CORPUSCULAR VOLUME 91 fl (80-97); MONOCYTES % (AUTO) 13.8 % (3-13); PLATELET COUNT 171 10^3/uL (150-450); RED BLOOD COUNT 3.24 10^6/uL (4.35-5.55); RED CELL DISTRIBUTION WIDTH 20.3 % (11.5-14.0); SEGMENTED NEUTROPHILS % (AUTO) 61.4 % (42-78); TOTAL CELLS COUNTED % (AUTO) 100 %; WHITE BLOOD COUNT 8.9 10^3/uL (4.0-10.5)
[2019-07-18 06:46] LABS: ALBUMIN 2.6 g/dL (3.5-5.0); ALKALINE PHOSPHATASE 141 U/L (38-126); ANION GAP 10 (5-19); ASPARTATE AMINO TRANSFERASE 47 U/L (17-59); BILIRUBIN,DIRECT 0.4 mg/dL (0.0-0.4); BILIRUBIN,TOTAL 0.4 mg/dL (0.2-1.3); BLOOD UREA NITROGEN 18 mg/dL (7-20); CARBON DIOXIDE 23 mmol/L (22-30); CHLORIDE 105 mmol/L (98-107); GLUCOSE 87 mg/dL (75-110); POTASSIUM 4.2 mmol/L (3.6-5.0)
[2019-07-18 06:57] LABS: ANISOCYTOSIS 2+; PLATELET COMMENT ADEQUATE; TARGET CELLS 1+
[2019-07-18] MEDS: FLUTICASONE/VILANTEROL 200-25 MCG/DOSE IH SCH (10:23)
[2019-07-18] MEDS: FLUTICASONE NASAL SPRAY 50 MCG/SPRY 120 SPRAY/16 GM NASL SCH (10:23)
[2019-07-18] MEDS: MULTIVIT-STRESS FORMULA/ZINC TABLET PO SCH (10:23)
[2019-07-18] MEDS: CHOLECALCIFEROL (D3) 1,000 UNIT (25 MCG) TABLET PO SCH (10:23)
[2019-07-18] MEDS: MULTIVITAMIN TABLET PO SCH (10:24)
[2019-07-18] MEDS: RIVAROXABAN 10 MG TABLET PO SCH (10:24)
[2019-07-18] MEDS: THIAMINE HCL 100 MG TABLET PO SCH (10:24)
[2019-07-18] MEDS: CYANOCOBALAMIN (VITAMIN B-12) 1,000 MCG TABLET PO SCH (10:24)
[2019-07-18] MEDS: FOLIC ACID 1 MG TABLET PO SCH (10:24)
[2019-07-18] MEDS: NICOTINE 21 MG/24 HR PATCH.TD24 TD SCH (10:25)
[2019-07-18] MEDS: LORATADINE 10 MG TABLET PO SCH (10:25)
[2019-07-18] MEDS: DOCUSATE SODIUM 100 MG CAPSULE PO SCH (10:25)
[2019-07-18] MEDS: NYSTATIN TOPICAL POWDER 15 GM TP SCH (10:29)
--- NOTE | 2019-07-18 11:03 | PDOC PROGRESS REPORT ---
Subjective Progress Note for:: 07/18/19 Subjective:: 64 year old male, who is a poor historian but by medical record is confirmed to have a past medical history significant for Chronic respiratory failure with hypoxia (on home O2), lymphedema, opiate dependent chronic pain, COPD, CAD, DVT, PE, GERD, obesity, RONIT, alcohol and tobacco dependence who presented to the emergency department today with a complaint of worsening appearance of chronic wound to his left medial ankle; now with sloughing and purulent drainage, increased pain, and erythematous border. Patient reports that he has been seen by Dr. Cruz in the past, however, it has been more than a month since he has had an appointment. He is unable to tel l me with the current plan of therapy is. Evaluation in the emergency department revealed baseline anemia (hemoglobin 10.2), INR of 2.22 (home medication list shows Xarelto), hypokalemia (2.8) hyper magnesium (1.3), elevated lactic acid (3.8), negative urinalysis, and EKG demonstrating normal sinus rhythm. A right foot x-ray was negative for bony demineralization but does demonstrate profound edema of the skin over bilateral feet. Patient was provided IV vancomycin and Diflucan. He is referred to the hospitalist service for admission and management of the above-stated complaints and findings. 07/[id number]-old male with multiple medical problems including chronic respiratory failure on home oxygen, lymphedema, chronic pain, COPD history of DVT, pulmonary embolism gastroparesis reflux disease obstructive sleep apnea tobacco abuse admitted for chronic wound on the left medial ankle. It is getting treated for bilateral lower leg cellulitis. Afebrile. T-max is 97.5. Denies any complaints. 07/17/2019 -64-year-old with multiple medical problems including COPD on home oxygen, opiate dependency chronic pain, COPD, coronary artery disease, DVT, PE, gastric further reflux disease, obesity, obstructive sleep apnea admitted for chronic wound on the left medial ankle status post debridement done on 07/12/2019. Physical therapy is working with the patient. Afebrile. 07/18/2019-no acute events in the last 24 hours. Patient saying urinary output is decreasing. Creatinine worsened to 5.9. Nephrology on board. CARMELA most likely secondary to ATN caused by vancomycin and Zosyn. Patient is presently off the antibiotic. Patient has massive bilateral pedal edema probably secondary venous dialysis DVT studies are negative artery Doppler studies are pending. Physical therapy consult was requested patient may need to go to a rehab facility. Reason For Visit: CELLULITIS Physical Exam Vital Signs: Temp Pulse Resp BP Pulse Ox 97.9 F 90 16 110/68 96 07/18/19 08:49 07/18/19 08:49 07/18/19 08:49 07/18/19 08:49 07/18/19 08:49 Intake & Output 07/17/19 07/18/19 07/19/19 06:59 06:59 06:59 Intake Total 2791 1591 Output Total 0 Balance 2791 1591 Weight 126.9 kg 126.3 kg General appearance: PRESENT: no acute distress, cooperative, morbidly obese Head exam: PRESENT: atraumatic Eye exam: PRESENT: PERRLA Mouth exam: PRESENT: moist, tongue midline Teeth exam: PRESENT: poor dentation Neck exam: ABSENT: carotid bruit, JVD, lymphadenopathy, thyromegaly Respiratory exam: PRESENT: decreased breath sounds - I did like that just a minute ago when he was a standing of the Cardiovascular exam: PRESENT: RRR. ABSENT: diastolic murmur, rubs, systolic murmur GI/Abdominal exam: PRESENT: normal bowel sounds, soft. ABSENT: distended, guarding, mass, organolmegaly, rebound, tenderness Rectal exam: PRESENT: deferred Extremities exam: PRESENT: +2 edema Neurological exam: PRESENT: alert, awake, oriented to person, oriented to place, oriented to time, oriented to situation, CN II-XII grossly intact. ABSENT: motor sensory deficit Psychiatric exam: PRESENT: appropriate affect, normal mood. ABSENT: homicidal ideation, suicidal ideation Results Laboratory Results: 07/18/19 05:46 07/18/19 05:46 07/17/19 07/18/19 07/18/19 10:04 05:46 05:46 WBC 8.9 RBC 3.24 L Hgb 9.5 L Hct 29.6 L MCV 91 MCH 29.2 MCHC 32.0 RDW 20.3 H Plt Count 171 Seg Neutrophils % 61.4 Sodium 138.7 138.2 Potassium 4.3 4.2 Chloride 106 105 Carbon Dioxide 25 23 Anion Gap 8 10 BUN 17 18 Creatinine 5.37 H 5.92 H Est GFR ( Amer) 13 L 12 L Glucose 86 87 Calcium 8.8 9.0 Magnesium 1.6 1.7 Total Bilirubin 0.5 0.4 AST 50 47 Alkaline Phosphatase 137 H 141 H Total Protein 6.8 7.0 Albumin 2.5 L 2.6 L 07/11/19 15:20 NT-Pro-B Natriuret Pep 372 Impressions: Chest X-Ray 07/11/19 00:00 IMPRESSION: Bibasilar airspace disease. Foot X-Ray 07/11/19 15:38 IMPRESSION: No aggressive bony demineralization or periosteal new bone worrisome for osteomyelitis. Profound edema and skin thickening over both the right and left dorsal foot Renal Ultrasound 07/17/19 00:00 IMPRESSION: Normal study. Assessment and Plan - Diagnosis (1) Bilateral cellulitis of lower leg Is this a current diagnosis for this admission?: Yes Plan: Improved; decreased erythema, edema, and tenderness to lower extremities today. Blood cultures are negative at 72 hours. Arterial Doppler pending. Venous Doppler is negative for evidence of DVT or obstruction in the bilateral lower extremities. ESR 88, CRP 43.3 A1c 4.8 % Patient is admitted to the medical floor on continuous cardiac telemetry. He was empirically placed on IV vancomycin and Zosyn. Discontinued yesterday secondary to Van trough >50 and CARMELA. Received 2 days of IV antibiotic therapy. Patient remains afebrile with a normal WBC. He did receive a one-time IV Diflucan by the ED provider. Surgery is consulted; appreciate Dr. Calhoun's evaluation recommendations. Keep extremities elevated. 07/16/2019-patient admitted with bilateral lower extremity cellulitis still have 2+ edema. Venous Doppler is negative for DVT plan is to do the arterial Doppler today as recommended by the surgeons. Cultures are negative. Patient is not on antibiotics at this moment.. WBC is within normal limits. 07/17/2019-patient admitted with bilateral cellulitis status post debridement of the necrotic wound on the left ankle. Physical therapy is working with the patient. Cultures are negative so far. WBC count within normal limits. Doppler is negative for DVTs. Arterial Dopplers pending. Patient says is e xtremely weak and unable to ambulate he prefers to stay at least another day. 07/18/2019-patient admitted with bilateral lower extremity cellulitis and he has a chronic venous stasis in both legs. Status post debridement of the wound in the left leg. Off the antibiotics at this moment. Patient is to go to a rehab facility for further management. (2) Stasis ulcer Qualifiers: Venous stasis ulcer site: ankle Varicose vein presence: unspecified whether present Laterality: left Is this a current diagnosis for this admission?: Yes Plan: Now S/P bedside debridement by surgery. Cultures and antibiotics as above. Evaluation and management as above. Wound care per surgery's expertise. May ambulate w/ post op shoe over Kodak on left 07/16/2019-patient has a stasis ulcer status post debridement by surgery. Cultures are negative so far. Presently not on antibiotics afebrile and WBC count is within normal limits. 07/17/2019-patient has a status ulcer status post debridement. Cultures are negative so far. Afebrile. Presently not on antibiotics. Physical therapy is working with the patient. Patient said he is extremely weak unable to get up and walk prefers to stay at least another day. 07/18/2019-status post debridement. Cultures are negative. Afebrile. Patient is off the antibiotic. PT consult is going to be requested for rehab placement. (3) Anemia Qualifiers: Anemia type: unspecified type Qualified Code(s): D64.9 - Anemia, unspecified Is this a current diagnosis for this admission?: Yes Plan: Hemoglobin 9.4 Appears to be at baseline. Likely secondary to nutritional deficiencies and chronic alcohol use. No evidence of active bleeding. Continue multivitamin. 07/16/2019-patient hemoglobin is 9.4 at baseline. Anemia of chronic disease most likely secondary to chronic alcohol abuse and nutritional deficiencies. 07/17/2019-latest hemoglobin is 9.4 stable. Today's labs are pending. 07/18/2019-patient's hemoglobin today is 9.5. Stable. Plan is to continue to closely monitor the labs. (4) Alcohol dependence Is this a current diagnosis for this admission?: Yes (5) COPD (chronic obstructive pulmonary disease) Qualifiers: COPD type: chronic bronchitis Chronic bronchitis type: unspecified Qualified Code(s): J42 - Unspecified chronic bronchitis Is this a current diagnosis for this admission?: No (6) CARMELA (acute kidney injury) Is this a current diagnosis for this admission?: Yes Plan: Creatinine of 3.63 today, baseline 0.60. Likely secondary to ATN related to IV vancomycin and Zosyn. Yesterday the patient's Vanc trough was 56.3 Serum osmolarity is 284. Urine osmolarity and sodium pending. Vancomycin and Zosyn are discontinued. Continue IV fluids. Daily chemistries. 07/16/2019-serum creatinine is continued to trending up to date is 4.52. Patient is nonoliguric. IV vancomycin and Zosyn are discontinued. Plan is to place a consult for nephrology today. 07/17/2019-patient is nonoliguric creatinine went up to 4.5 yesterday. Not on antibiotics. Nephrology consult was requested to request a renal ultrasound today. 07/18/2019-serum creatinine is 5.[address] a Atkins's catheter to get a strict input output chart and nephrology on board. AKA most likely secondary to ATN caused by vancomycin and Zosyn. - Time Time Spent with patient: 25-34 minutes Medications reviewed and adjusted accordingly: Yes Anticipated discharge: SNF
[2019-07-18] MEDS ORDERED: ONDANSETRON HCL INJ/PF 4 MG/2 ML SDV IV PRN (12:30)
[2019-07-18] MEDS: TRAZODONE HCL 50 MG TABLET PO SCH (21:14)
[2019-07-18] MEDS: MONTELUKAST SODIUM 10 MG TABLET PO SCH (21:14)
[2019-07-18] MEDS: MELATONIN 5 MG TABLET PO SCH (21:14)
[2019-07-18] MEDS: ATORVASTATIN CALCIUM 40 MG TABLET PO SCH (21:14)
[2019-07-19] MEDS: DIAZEPAM 5 MG TABLET PO SCH (01:00)
[2019-07-19] MEDS: OXYCODONE HCL IR 5 MG TABLET PO SCH ×5 (01:00→23:01)
[2019-07-19] MEDS: PANTOPRAZOLE SODIUM 40 MG TABLET.DR PO SCH (05:22)
[2019-07-19] MEDS: PREGABALIN 75 MG CAPSULE PO SCH ×2 (05:22→18:14)
[2019-07-19] MEDS ORDERED: HEPARIN SOD (PORCINE) 5,000 UNIT/ML 1 ML VIAL SUBCUT SCH (06:00)
[2019-07-19 06:13] LABS: ABSOLUTE EOSINOPHILS # (AUTO) 0.2 10^3/uL (0.0-0.6); ABSOLUTE LYMPHOCYTES (AUTO) 2.6 10^3/uL (0.5-4.7); ABSOLUTE MONOCYTES (AUTO) 1.3 10^3/uL (0.1-1.4); ABSOLUTE NEUT (AUTO) 4.6 10^3/uL (1.7-8.2); BASOPHILS % (AUTO) 0.4 % (0-2); HEMATOCRIT 29.2 % (37.9-51.0); HEMOGLOBIN 9.5 g/dL (13.5-17.0); LYMPHOCYTES % (AUTO) 29.8 % (13-45); MEAN CORPUSCULAR HEMOGLOBIN 29.3 pg (27.0-33.4); MEAN CORPUSCULAR HGB CONC 32.4 g/dL (32.0-36.0); MEAN CORPUSCULAR VOLUME 90 fl (80-97); MONOCYTES % (AUTO) 14.6 % (3-13); PLATELET COUNT 172 10^3/uL (150-450); RED BLOOD COUNT 3.23 10^6/uL (4.35-5.55); RED CELL DISTRIBUTION WIDTH 20.6 % (11.5-14.0); SEGMENTED NEUTROPHILS % (AUTO) 53.2 % (42-78); TOTAL CELLS COUNTED % (AUTO) 100 %; WHITE BLOOD COUNT 8.6 10^3/uL (4.0-10.5)
[2019-07-19 06:32] LABS: ALBUMIN 2.5 g/dL (3.5-5.0); ALKALINE PHOSPHATASE 145 U/L (38-126); ANION GAP 8 (5-19); ASPARTATE AMINO TRANSFERASE 43 U/L (17-59); BILIRUBIN,DIRECT 0.4 mg/dL (0.0-0.4); BILIRUBIN,TOTAL 0.4 mg/dL (0.2-1.3); BLOOD UREA NITROGEN 21 mg/dL (7-20); CALCIUM 9.4 mg/dL (8.4-10.2); CARBON DIOXIDE 24 mmol/L (22-30); CHLORIDE 108 mmol/L (98-107); GLUCOSE 85 mg/dL (75-110); POTASSIUM 4.4 mmol/L (3.6-5.0)
--- NOTE | 2019-07-19 10:09 | PDOC PROGRESS REPORT ---
Subjective Progress Note for:: 07/19/19 Subjective:: 64 year old male, who is a poor historian but by medical record is confirmed to have a past medical history significant for Chronic respiratory failure with hypoxia (on home O2), lymphedema, opiate dependent chronic pain, COPD, CAD, DVT, PE, GERD, obesity, RONIT, alcohol and tobacco dependence who presented to the emergency department today with a complaint of worsening appearance of chronic wound to his left medial ankle; now with sloughing and purulent drainage, increased pain, and erythematous border. Patient reports that he has been seen by Dr. Cruz in the past, however, it has been more than a month since he has had an appointment. He is unable to tel l me with the current plan of therapy is. Evaluation in the emergency department revealed baseline anemia (hemoglobin 10.2), INR of 2.22 (home medication list shows Xarelto), hypokalemia (2.8) hyper magnesium (1.3), elevated lactic acid (3.8), negative urinalysis, and EKG demonstrating normal sinus rhythm. A right foot x-ray was negative for bony demineralization but does demonstrate profound edema of the skin over bilateral feet. Patient was provided IV vancomycin and Diflucan. He is referred to the hospitalist service for admission and management of the above-stated complaints and findings. 07/[id number]-old male with multiple medical problems including chronic respiratory failure on home oxygen, lymphedema, chronic pain, COPD history of DVT, pulmonary embolism gastroparesis reflux disease obstructive sleep apnea tobacco abuse admitted for chronic wound on the left medial ankle. It is getting treated for bilateral lower leg cellulitis. Afebrile. T-max is 97.5. Denies any complaints. 07/17/2019 -64-year-old with multiple medical problems including COPD on home oxygen, opiate dependency chronic pain, COPD, coronary artery disease, DVT, PE, gastric further reflux disease, obesity, obstructive sleep apnea admitted for chronic wound on the left medial ankle status post debridement done on 07/12/2019. Physical therapy is working with the patient. Afebrile. 07/18/2019-no acute events in the last 24 hours. Patient saying urinary output is decreasing. Creatinine worsened to 5.9. Nephrology on board. CARMELA most likely secondary to ATN caused by vancomycin and Zosyn. Patient is presently off the antibiotic. Patient has massive bilateral pedal edema probably secondary venous dialysis DVT studies are negative artery Doppler studies are pending. Physical therapy consult was requested patient may need to go to a rehab facility. 07/19/2019-creatinine continue to worse. Latest serum creatinine is 6.5. Atkins's catheter was placed yesterday has a urinary output of 1 L. Nephrology on board. Patient denies any chest pains denies any shortness of breath. He has pe rsistent chronic lower extremity edema he kindly agreed to go to rehab facility because he is unable to stand up and walk. Reason For Visit: CELLULITIS Physical Exam Vital Signs: Temp Pulse Resp BP Pulse Ox 98.6 F 82 18 141/74 H 96 07/19/19 08:07 07/19/19 08:07 07/19/19 08:07 07/19/19 08:07 07/19/19 08:07 Intake & Output 07/18/19 07/19/19 07/20/19 06:59 06:59 06:59 Intake Total 1591 660 Output Total 0 1075 Balance 1591 -415 Weight 126.3 kg 123.7 kg General appearance: PRESENT: no acute distress, cooperative, morbidly obese Head exam: PRESENT: atraumatic Eye exam: PRESENT: PERRLA Ear exam: PRESENT: normal external ear exam Mouth exam: PRESENT: neck supple Teeth exam: PRESENT: poor dentation Respiratory exam: PRESENT: decreased breath sounds Cardiovascular exam: PRESENT: irregular rhythm GI/Abdominal exam: PRESENT: normal bowel sounds, soft. ABSENT: distended, guarding, mass, organolmegaly, rebound, tenderness Rectal exam: PRESENT: deferred Gentrourinary exam: PRESENT: indwelling catheter Extremities exam: PRESENT: +2 edema Neurological exam: PRESENT: alert, awake, oriented to person, oriented to place, oriented to time, oriented to situation, CN II-XII grossly intact. ABSENT: motor sensory deficit Psychiatric exam: PRESENT: appropriate affect, normal mood. ABSENT: homicidal ideation, suicidal ideation Results Laboratory Results: 07/19/19 05:38 07/19/19 05:38 07/19/19 07/19/19 05:38 05:38 WBC 8.6 RBC 3.23 L Hgb 9.5 L Hct 29.2 L MCV 90 MCH 29.3 MCHC 32.4 RDW 20.6 H Plt Count 172 Seg Neutrophils % 53.2 Sodium 140.0 Potassium 4.4 Chloride 108 H Carbon Dioxide 24 Anion Gap 8 BUN 21 H Creatinine 6.52 H Est GFR ( Amer) 10 L Glucose 85 Calcium 9.4 Magnesium 1.8 Total Bilirubin 0.4 AST 43 Alkaline Phosphatase 145 H Total Protein 7.0 Albumin 2.5 L 07/11/19 15:20 NT-Pro-B Natriuret Pep 372 Impressions: Chest X-Ray 07/11/19 00:00 IMPRESSION: Bibasilar airspace disease. Foot X-Ray 07/11/19 15:38 IMPRESSION: No aggressive bony demineralization or periosteal new bone worrisome for osteomyelitis. Profound edema and skin thickening over both the right and left dorsal foot Renal Ultrasound 07/17/19 00:00 IMPRESSION: Normal study. Assessment and Plan - Diagnosis (1) Bilateral cellulitis of lower leg Is this a current diagnosis for this admission?: Yes Plan: Improved; decreased erythema, edema, and tenderness to lower extremities today. Blood cultures are negative at 72 hours. Arterial Doppler pending. Venous Doppler is negative for evidence of DVT or obstruction in the bilateral lower extremities. ESR 88, CRP 43.3 A1c 4.8 % Patient is admitted to the medical floor on continuous cardiac telemetry. He was empirically placed on IV vancomycin and Zosyn. Discontinued yesterday secondary to Van trough >50 and CARMELA. Received 2 days of IV antibiotic therapy. Patient remains afebrile with a normal WBC. He did receive a one-time IV Diflucan by the ED provider. Surgery is consulted; appreciate Dr. Calhoun's evaluation recommendations. Keep extremities elevated. 07/16/2019-patient admitted with bilateral lower extremity cellulitis still have 2+ edema. Venous Doppler is negative for DVT plan is to do the arterial Doppler today as recommended by the surgeons. Cultures are negative. Patient is not on antibiotics at this moment.. WBC is within normal limits. 07/17/2019-patient admitted with bilateral cellulitis status post debridement of the necrotic wound on the left ankle. Physical therapy is working with the patient. Cultures are negative so far. WBC count within normal limits. Doppler is negative for DVTs. Arterial Dopplers pending. Patient says is extremely weak and unable to ambulate he prefers to stay at least another day. 07/18/2019-patient admitted with bilateral lower extremity cellulitis and he has a chronic venous stasis in both legs. Status post debridement of the wound in the left leg. Off the antibiotics at this moment. Patient is to go to a rehab facility for further management. 07/19/2019-patient was admitted with bilateral lower extremity cellulitis he has chronic venous stasis. DVT studies are negative for acute pathology arterial Doppler is negative for obstruction. He has this persistent 2+ pedal edema and his chronic skin changes. Presently not on antibiotics. Afebrile. (2) Stasis ulcer Qualifiers: Venous stasis ulcer site: ankle Varicose vein presence: unspecified whether present Laterality: left Is this a current diagnosis for this admission?: Yes Plan: Now S/P bedside debridement by surgery. Cultures and antibiotics as above. Evaluation and management as above. Wound care per surgery's expertise. May ambulate w/ post op shoe over Kodak on left 07/16/2019-patient has a stasis ulcer status post debridement by surgery. Cultures are negative so far. Presently not on antibiotics afebrile and WBC count is within normal limits. 07/17/2019-patient has a status ulcer status post debridement. Cultures are negative so far. Afebrile. Presently not on antibiotics. Physical therapy is working with the patient. Patient said he is extremely weak unable to get up and walk prefers to stay at least another day. 07/18/2019-status post debridement. Cultures are negative. Afebrile. Patient is off the antibiotic. PT consult is going to be requested for rehab placement. (3) Anemia Qualifiers: Anemia type: unspecified type Qualified Code(s): D64.9 - Anemia, unspec ified Is this a current diagnosis for this admission?: Yes Plan: Hemoglobin 9.4 Appears to be at baseline. Likely secondary to nutritional deficiencies and chronic alcohol use. No evidence of active bleeding. Continue multivitamin. 07/16/2019-patient hemoglobin is 9.4 at baseline. Anemia of chronic disease most likely secondary to chronic alcohol abuse and nutritional deficiencies. 07/17/2019-latest hemoglobin is 9.4 stable. Today's labs are pending. 07/18/2019-patient's hemoglobin today is 9.5. Stable. Plan is to continue to closely monitor the labs. 07/19/2019-patient hemoglobin is 9.5 stable. Plan is to continue to closely monitor his hemoglobin. (4) Alcohol dependence Is this a current diagnosis for this admission?: Yes (5) COPD (chronic obstructive pulmonary disease) Qualifiers: COPD type: chronic bronchitis Chronic bronchitis type: unspecified Qualified Code(s): J42 - Unspecified chronic bronchitis Is this a current diagnosis for this admission?: No (6) CARMELA (acute kidney injury) Is this a current diagnosis for this admission?: Yes Plan: Creatinine of 3.63 today, baseline 0.60. Likely secondary to ATN related to IV vancomycin and Zosyn. Yesterday the patient's Vanc trough was 56.3 Serum osmolarity is 284. Urine osmolarity and sodium pending. Vancomycin and Zosyn are discontinued. Continue IV fluids. Daily chemistries. 07/16/2019-serum creatinine is continued to trending up to date is 4.52. Patient is nonoliguric. IV vancomycin and Zosyn are discontinued. Plan is to place a consult for nephrology today. 07/17/2019-patient is nonoliguric creatinine went up to 4.5 yesterday. Not on antibiotics. Nephrology consult was requested to request a renal ultrasound today. 07/18/2019-serum creatinine is 5.[address] a Atkins's catheter to get a strict input output chart and nephrology on board. AKA most likely secondary to ATN caused by vancomycin and Zosyn. 07/19/2019-patient is nonoliguric serum creatinine was 6.5 today. Most likely developed CARMELA due to acute tubular necrosis due to antibiotics vancomycin and Zosyn. Antibiotics are on hold. Nephrology on board. - Time Time Spent with patient: 25-34 minutes Medications reviewed and adjusted accordingly: Yes Anticipated discharge: SNF
[2019-07-19] MEDS: LORATADINE 10 MG TABLET PO SCH (10:53)
[2019-07-19] MEDS: MULTIVIT-STRESS FORMULA/ZINC TABLET PO SCH (10:53)
[2019-07-19] MEDS: DOCUSATE SODIUM 100 MG CAPSULE PO SCH (10:54)
[2019-07-19] MEDS: FOLIC ACID 1 MG TABLET PO SCH (10:54)
[2019-07-19] MEDS: MULTIVITAMIN TABLET PO SCH (10:54)
[2019-07-19] MEDS: RIVAROXABAN 10 MG TABLET PO SCH (10:54)
[2019-07-19] MEDS: ACETAMINOPHEN 325 MG TABLET PO PRN (10:55)
[2019-07-19] MEDS: NICOTINE 21 MG/24 HR PATCH.TD24 TD SCH (10:56)
[2019-07-19] MEDS: CHOLECALCIFEROL (D3) 1,000 UNIT (25 MCG) TABLET PO SCH (10:56)
[2019-07-19] MEDS: CYANOCOBALAMIN (VITAMIN B-12) 1,000 MCG TABLET PO SCH (10:56)
[2019-07-19] MEDS: FLUTICASONE/VILANTEROL 200-25 MCG/DOSE IH SCH (10:57)
[2019-07-19] MEDS: FLUTICASONE NASAL SPRAY 50 MCG/SPRY 120 SPRAY/16 GM NASL SCH (10:57)
[2019-07-19] MEDS: NYSTATIN TOPICAL POWDER 15 GM TP SCH (11:12)
[2019-07-19] MEDS: THIAMINE HCL 100 MG TABLET PO SCH (11:13)
--- NOTE | 2019-07-19 14:27 | PDOC PROGRESS REPORT ---
Subjective Progress Note for:: 07/19/19 Subjective:: Patient states that he is feeling fatigue and weak. However he denies any nausea, vomiting, chest pains no shortness of breath. He said he is eating okay and drinking some fluids. He now has a Atkins catheter inserted and he made about 1 L of urine output for the last 24 hours. Reason For Visit: CELLULITIS Physical Exam Vital Signs: Temp Pulse Resp BP Pulse Ox 98.6 F 82 18 141/74 H 96 07/19/19 08:07 07/19/19 08:07 07/19/19 08:07 07/19/19 08:07 07/19/19 08:07 Intake & Output 07/18/19 07/19/19 07/20/19 06:59 06:59 06:59 Intake Total 1591 660 Output Total 0 1075 Balance 1591 -415 Weight 126.3 kg 123.7 kg Exam: General appearance: PRESENT: no acute distress, cooperative, well-developed, well-nourished Head exam: PRESENT: atraumatic, normocephalic Eye exam: PRESENT: conjunctiva slightly pale, PERRLA. ABSENT: scleral icterus Neck exam: ABSENT: JVD Respiratory exam: PRESENT: Diminished breath sounds. ABSENT: crackles, rales, rhonchi, unlabored, wheezes Cardiovascular exam: PRESENT: Regular rate rhythm -+S1, +S2. ABSENT: diastolic murmur, systolic murmur GI/Abdominal exam: PRESENT: normal bowel sounds, soft. ABSENT: guarding, mass, tenderness Extremities exam: Grade 2 bilateral lower extremity pitting edema which she seems to be unchanged, left ankle with overlying dressing and Kodak wrap. Neurological exam: PRESENT: alert, awake, oriented to person, place and time. Skin exam: PRESENT: dry, warm, Results Laboratory Results: 07/19/19 05:38 07/19/19 05:38 07/19/19 07/19/19 05:38 05:38 WBC 8.6 RBC 3.23 L Hgb 9.5 L Hct 29.2 L MCV 90 MCH 29.3 MCHC 32.4 RDW 20.6 H Plt Count 172 Seg Neutrophils % 53.2 Sodium 140.0 Potassium 4.4 Chloride 108 H Carbon Dioxide 24 Anion Gap 8 BUN 21 H Creatinine 6.52 H Est GFR ( Amer) 10 L Glucose 85 Calcium 9.4 Magnesium 1.8 Total Bilirubin 0.4 AST 43 Alkaline Phosphatase 145 H Total Protein 7.0 Albumin 2.5 L 07/11/19 15:20 NT-Pro-B Natriuret Pep 372 Impressions: Chest X-Ray 07/11/19 00:00 IMPRESSION: Bibasilar airspace disease. Foot X-Ray 07/11/19 15:38 IMPRESSION: No aggressive bony demineralization or periosteal new bone worrisome for osteomyelitis. Profound edema and skin thickening over both the right and left dorsal foot Renal Ultrasound 07/17/19 00:00 IMPRESSION: Normal study. Assessment & Plan - Diagnosis (1) CARMELA (acute kidney injury) Is this a current diagnosis for this admission?: Yes Plan: Patient is still nonoliguric, however his kidney function continues to significantly worsen every single day. This is due to ATN due to vancomycin toxicity and the combination of IV vancomycin and Zosyn. Due to the rapid deterioration of the patient's kidney function I think it would be best to help the patient with renal replacement therapy earlier than later to help with recovery faster and to prevent uremic symptoms. I spoke to the patient today regarding benefits of dialysis to help him clean his blood. Discussed how the procedure is done. Discussed the risks for dialysis including bleeding, infection, hemodynamic instability including hypotension and cardiac arrest. Patient agreed to proceed. I discussed the case with Goldie Le who agreed with the plan. I called Dr. Schmidt to put the trialysis catheter for planned hemodialysis tomorrow morning. (2) Bilateral cellulitis of lower leg Is this a current diagnosis for this admission?: Yes (3) Stasis ulcer Qualifiers: Venous stasis ulcer site: ankle Varicose vein presence: unspecified whether present Laterality: left Is this a current diagnosis for this admission?: Yes (4) Alcohol dependence Is this a current diagnosis for this admission?: Yes (5) Anemia Qualifiers: Anemia type: unspecified type Qualified Code(s): D64.9 - Anemia, unspecified Is this a current diagnosis for this admission?: Yes - Time Time with patient: Greater than 35 minutes
[2019-07-19] MEDS ORDERED: LIDOCAINE 1%/EPINEPHRINE INJ 20 ML VIAL INJ PRN (15:11)
--- NOTE | 2019-07-19 17:24 | PDOC CONSULTATION ---
Consultation Consult Date: 07/19/19 Provider Consulted: GEETA WILLIS Consult reason:: need IV access fortemporary HD History of Present Illness Admission Date/PCP: 07/11/19 18:11 DAVID WARNER MD History of Present Illness: ANALY NEVAREZ is a 64 year old male, obese, multiple medical issues, admitted on 07/11 for purulent draining left malleolar wound, tx with ABX (Vanco); his kidney function was initially normal, to later deteriorate. The patient is in need of IV access for temporary dialysis. The been requested to insert a groin access for hemodialysis. Past Medical History Cardiac Medical History: Reports: Congestive Heart Failure, Coronary Artery Disease, DVT, Myocardial Infarction, Hyperlipidema, Hypertension, Peripheral Vascular Disease, Pulmonary Embolism Pulmonary Medical History: Reports: Asthma, Bronchitis, Chronic Obstructive Pulmonary Disease (COPD), Pneumonia, Respiratory Failure, Sleep Apnea - Uses CPAP at home Denies: Tuberculosis Neurological Medical History: Denies: Ischemic CVA, Seizures Endocrine Medical History: Reports: Obesity Denies: Diabetes Mellitus Type 2, Hypothyroidism Renal/ Medical History: Reports: None Malignancy Medical History: Reports: None GI Medical History: Reports: Cirrhosis - Alcoholic, Gastroesophageal Reflux Disease, Hiatal Hernia Psychiatric Medical History: Reports: Alcohol Dependency, Tobacco Dependency Denies: Depression Hematology: Reports: Anemia Infectious Medical History: Reports: Methicillin-Resistant Staph Aureus, Vancomycin-Resistant Enterococci - Recurrent cellulitis of right lower extremity Past Surgical History Past Surgical History: Reports: Cardiac Catheterization - stent x1, Cholecystectomy, Herniorrhaphy - mesh, Orthopedic Surgery - multiple back, Tonsillectomy, Vascular Surgery - filter placed, pt unsure where, Other - He had ventral hernia followed by SBO at [facility] few years ago Denies: Appendectomy, Coronary Artery Bypass Graft, Gastric Bypass Surgery, Pacemaker Social History Lives with: Friend Smoking Status: Current Every Day Smoker Cigarettes Packs Per Day: 2 Number of Years Smokin Last Time Smoked: 07/11/19 Frequency of Alcohol Use: Heavy Hx Recreational Drug Use: Yes Drugs: Marijuana Hx Prescription Drug Abuse: No - Advance Directive Resuscitation Status: Full Code Family History Family History: COPD, Hypertension Parental Family History Reviewed: No Children Family History Reviewed: No Sibling(s) Family History Reviewed.: No Medication/Allergy Home Medications: Atorvastatin Calcium 40 mg PO DAILY 06/07/18 Cholecalciferol (Vitamin D3) [Vitamin D3 5000 unit Capsule] 5,000 unit PO DAILY 06/07/18 Docusate Sodium [Colace] 100 mg PO BID 06/07/18 Fluticasone/Salmeterol [Advair 250-50 Diskus 28 dose] 1 inh IH Q12 06/07/18 Folic Acid [Folvite 1 mg Tablet] 1 mg PO DAILY 06/07/18 Furosemide [Lasix 20 mg Tablet] 20 mg PO BID 06/07/18 Loratadine [Claritin] 10 mg PO DAILY 06/07/18 Melatonin 10 mg PO QHS 06/07/18 Mometasone Furoate [Nasonex] 1 spray NS Q12 06/07/18 Montelukast Sodium [Singulair 10 mg Tablet] 10 mg PO QHS 06/07/18 Multivitamin [Multiple Vitamins] 1 each PO DAILY 06/07/18 Naloxegol Oxalate [Movantik] 25 mg PO DAILY 06/07/18 Omeprazole 40 mg PO DAILY 06/07/18 Oxycodone HCl [Oxycodone HCl 10 MG Tablet] 10 mg PO Q6 06/07/18 Pregabalin [Lyrica] 150 mg PO Q8 06/07/18 Rivaroxaban [Xarelto] 20 mg PO DAILY 06/07/18 Tiotropium Ama [Spiriva Respimat] 2 puff IH DAILY 06/07/18 Tramadol HCl [Ultram] 50 mg PO TIDP PRN 06/07/18 Trazodone HCl [Desyrel] 300 mg PO QHS 06/07/18 Vitamin B Complex [Vitamin B Complex-100] 1 each PO DAILY 06/07/18 Albuterol Sulfate [Proair Hfa Inhalation Aerosol 8.5 gm Mdi] 1 puff IH Q4 PRN 07/11/19 Albuterol Sulfate [Ventolin 0.083% Neb 2.5 mg/3 ml Ampul] 1 vial NEB TID 07/11/19 Cyanocobalamin (Vitamin B-12) [B-12] 500 mcg PO DAILY 07/11/19 Hydroxyzine HCl [Atarax 10 mg Tablet] 10 mg PO TID PRN 07/11/19 Ipratropium Ama [Atrovent 0.02% Neb 0.5 Mg/2.5 Ml Vial.Neb] 0.5 mg IH TID 07/11/19 Nystatin 1 each TP DAILY 07/11/19 Allergies/Adverse Reactions: cephalexin monohydrate [From Keflex] Allergy (Intermediate, Verified 06/08/16 08:54) codeine Allergy (Verified 06/08/16 08:54) morphine Allergy (Verified 06/08/16 08:54) Physical Exam Vital Signs: Temp Pulse Resp BP Pulse Ox 98.4 F 83 18 119/66 97 07/19/19 12:32 07/19/19 14:00 07/19/19 12:32 07/19/19 12:32 07/19/19 12:32 Intake & Output 07/18/19 07/19/19 07/20/19 06:59 06:59 06:59 Intake Total 1591 660 Output Total 0 1075 Balance 1591 -415 Weight 126.3 kg 123.7 kg General appearance: PRESENT: no acute distress, obese Neck exam: PRESENT: full ROM Respiratory exam: PRESENT: clear to auscultation lui Cardiovascular exam: PRESENT: RRR GI/Abdominal exam: PRESENT: soft - old midline surgical scar Results Laboratory Results: 07/19/19 05:38 07/19/19 05:38 07/19/19 07/19/19 05:38 05:38 WBC 8.6 RBC 3.23 L Hgb 9.5 L Hct 29.2 L MCV 90 MCH 29.3 MCHC 32.4 RDW 20.6 H Plt Count 172 Seg Neutrophils % 53.2 Sodium 140.0 Potassium 4.4 Chloride 108 H Carbon Dioxide 24 Anion Gap 8 BUN 21 H Creatinine 6.52 H Est GFR ( Amer) 10 L Glucose 85 Calcium 9.4 Magnesium 1.8 Total Bilirubin 0.4 AST 43 Alkaline Phosphatase 145 H Total Protein 7.0 Albumin 2.5 L 07/11/19 15:20 NT-Pro-B Natriuret Pep 372 Impressions: Chest X-Ray 07/11/19 00:00 IMPRESSION: Bibasilar airspace disease. Foot X-Ray 07/11/19 15:38 IMPRESSION: No aggressive bony demineralization or periosteal new bone worrisome for osteomyelitis. Profound edema and skin thickening over both the right and left dorsal foot Renal Ultrasound 07/17/19 00:00 IMPRESSION: Normal study. Assessment & Plan - Diagnosis (1) Need for intravenous access Is this a current diagnosis for this admission?: Yes - Plan Summary Plan Summary: Assessment: Need of IV access for temporary hemodialysis Have been requested to insert a hemodialysis catheter in the patient's groin Plan: Insertion of right groin, femoral vein hemodialysis catheter for temporary dialy sis Procedure, risks, benefits, and complications explained to the patient, his questions were answered, he decided to proceed.
--- NOTE | 2019-07-19 17:35 | Operative Report ---
Operative Report DATE OF SURGERY: 07/19/19 PREOPERATIVE DIAGNOSIS: Needs all IV access for temporary hemodialysis POSTOPERATIVE DIAGNOSIS: Same OPERATION: Placement of the right common femoral vein hemodialysis temporary catheter SURGEON: GEETA WILLIS ANESTHESIA: Local - 20 mL's of 1% lidocaine TISSUE REMOVED OR ALTERED: None COMPLICATIONS: None ESTIMATED BLOOD LOSS: Less than 10 mL's INTRAOPERATIVE FINDINGS: The catheter was inserted up to 22 cm due to a blockage of the IVC PROCEDURE: The procedure was done at bedside: The patient was placed in a supine position, the patient right groin were prepped and draped in the usual fashion. The right common femoral artery was palpated and the area just medial to this was infiltrated with lidocaine, a 16-gauge needle was then used to cannulate the right common femoral vein without difficulty with good blood return; a guidewire was inserted through the needle into the common femoral vein vein without difficulty the needle was removed. The insertion point of the guidewire was enlarged with a #11 blade and a tissue dilator which was then removed. A triple-lumen hemodialysis catheter was inserted without difficulty over the guidewire into the right common femoral vein without difficulty up to 22 cm, due to an IVC blockage. The guidewire was removed. Each port was aspirated and flushed with normal saline without difficulty. The catheter was secured to the skin with 3-0 nylon sutures and sterile dressing applied. The patient tolerated the procedure well.
[2019-07-19] MEDS: MONTELUKAST SODIUM 10 MG TABLET PO SCH (22:47)
[2019-07-19] MEDS: TRAZODONE HCL 50 MG TABLET PO SCH (22:47)
[2019-07-19] MEDS: ATORVASTATIN CALCIUM 40 MG TABLET PO SCH (22:47)
[2019-07-19] MEDS: MELATONIN 5 MG TABLET PO SCH (22:48)
--- NOTE | 2019-07-19 23:44 | Progress Note ---
Provider Note Provider Note: Assessment: The right common femoral vein hemodialysis catheter could not be advanced more than 22 cm because of the presence of an IVC filter not identified prior to the procedure The hemodialysis catheter appears to be working well with good blood return and flushing The above has been communicated to the traffic control flagger Plan: I will sign off, please call us back with questions.
[2019-07-20] MEDS ORDERED: HEPARIN SOD (PORCINE) 1,000 UNIT/ML 10 ML VIAL IV PRN (05:00)
[2019-07-20] MEDS ORDERED: NORMAL SALINE 1000 ML 1,000 ML IV PRN (05:00)
[2019-07-20] MEDS: PREGABALIN 75 MG CAPSULE PO SCH ×2 (05:51→17:15)
[2019-07-20] MEDS: OXYCODONE HCL IR 5 MG TABLET PO SCH ×4 (05:51→23:00)
[2019-07-20] MEDS: PANTOPRAZOLE SODIUM 40 MG TABLET.DR PO SCH (05:51)
[2019-07-20 06:19] LABS: ABSOLUTE EOSINOPHILS # (AUTO) 0.2 10^3/uL (0.0-0.6); ABSOLUTE LYMPHOCYTES (AUTO) 3.3 10^3/uL (0.5-4.7); ABSOLUTE MONOCYTES (AUTO) 1.5 10^3/uL (0.1-1.4); ABSOLUTE NEUT (AUTO) 5.2 10^3/uL (1.7-8.2); BASOPHILS % (AUTO) 0.4 % (0-2); EOSINOPHILS % (AUTO) 1.8 % (0-6); HEMATOCRIT 29.1 % (37.9-51.0); HEMOGLOBIN 9.4 g/dL (13.5-17.0); LYMPHOCYTES % (AUTO) 32.3 % (13-45); MEAN CORPUSCULAR HEMOGLOBIN 29.1 pg (27.0-33.4); MEAN CORPUSCULAR HGB CONC 32.2 g/dL (32.0-36.0); MEAN CORPUSCULAR VOLUME 90 fl (80-97); MONOCYTES % (AUTO) 14.4 % (3-13); PLATELET COUNT 151 10^3/uL (150-450); RED BLOOD COUNT 3.23 10^6/uL (4.35-5.55); RED CELL DISTRIBUTION WIDTH 20.8 % (11.5-14.0); SEGMENTED NEUTROPHILS % (AUTO) 51.1 % (42-78); TOTAL CELLS COUNTED % (AUTO) 100 %; WHITE BLOOD COUNT 10.2 10^3/uL (4.0-10.5)
[2019-07-20 06:39] LABS: ALBUMIN 2.5 g/dL (3.5-5.0); ALKALINE PHOSPHATASE 127 U/L (38-126); ANION GAP 8 (5-19); ASPARTATE AMINO TRANSFERASE 40 U/L (17-59); BILIRUBIN,DIRECT 0.6 mg/dL (0.0-0.4); BILIRUBIN,TOTAL 0.6 mg/dL (0.2-1.3); BLOOD UREA NITROGEN 23 mg/dL (7-20); CALCIUM 9.4 mg/dL (8.4-10.2); CARBON DIOXIDE 24 mmol/L (22-30); CHLORIDE 109 mmol/L (98-107); GLUCOSE 88 mg/dL (75-110); PHOSPHORUS 6.4 mg/dL (2.5-4.5); POTASSIUM 4.4 mmol/L (3.6-5.0); TOTAL PROTEIN 7.2 g/dL (6.3-8.2)
--- NOTE | 2019-07-20 10:39 | PDOC PROGRESS REPORT ---
Subjective Progress Note for:: 07/20/19 Subjective:: 64 year old male, who is a poor historian but by medical record is confirmed to have a past medical history significant for Chronic respiratory failure with hypoxia (on home O2), lymphedema, opiate dependent chronic pain, COPD, CAD, DVT, PE, GERD, obesity, RONIT, alcohol and tobacco dependence who presented to the emergency department today with a complaint of worsening appearance of chronic wound to his left medial ankle; now with sloughing and purulent drainage, increased pain, and erythematous border. Patient reports that he has been seen by Dr. Cruz in the past, however, it has been more than a month since he has had an appointment. He is unable to tel l me with the current plan of therapy is. Evaluation in the emergency department revealed baseline anemia (hemoglobin 10.2), INR of 2.22 (home medication list shows Xarelto), hypokalemia (2.8) hyper magnesium (1.3), elevated lactic acid (3.8), negative urinalysis, and EKG demonstrating normal sinus rhythm. A right foot x-ray was negative for bony demineralization but does demonstrate profound edema of the skin over bilateral feet. Patient was provided IV vancomycin and Diflucan. He is referred to the hospitalist service for admission and management of the above-stated complaints and findings. 07[birth year]16/[id number]-old male with multiple medical problems including chronic respiratory failure on home oxygen, lymphedema, chronic pain, COPD history of DVT, pulmonary embolism gastroparesis reflux disease obstructive sleep apnea tobacco abuse admitted for chronic wound on the left medial ankle. It is getting treated for bilateral lower leg cellulitis. Afebrile. T-max is 97.5. Denies any complaints. 07/17/2019 -64-year-old with multiple medical problems including COPD on home oxygen, opiate dependency chronic pain, COPD, coronary artery disease, DVT, PE, gastric further reflux disease, obesity, obstructive sleep apnea admitted for chronic wound on the left medial ankle status post debridement done on 07/12/2019. Physical therapy is working with the patient. Afebrile. 07/18/2019-no acute events in the last 24 hours. Patient saying urinary output is decreasing. Creatinine worsened to 5.9. Nephrology on board. CARMELA most likely secondary to ATN caused by vancomycin and Zosyn. Patient is presently off the antibiotic. Patient has massive bilateral pedal edema probably secondary venous dialysis DVT studies are negative artery Doppler studies are pending. Physical therapy consult was requested patient may need to go to a rehab facility. 07/19/2019-creatinine continue to worse. Latest serum creatinine is 6.5. Atkins's catheter was placed yesterday has a urinary output of 1 L. Nephrology on board. Patient denies any chest pains denies any shortness of breath. He has pe rsistent chronic lower extremity edema he kindly agreed to go to rehab facility because he is unable to stand up and walk. 07/20/2019-latest creatinine 7.26. Patient's dialysis catheter was placed in the right groin yesterday. She is having the dialysis this morning. Comfortable in the dialysis chair not in distress. Reason For Visit: CELLULITIS Physical Exam Vital Signs: Temp Pulse Resp BP Pulse Ox 98.6 F 83 15 114/67 96 07/20/19 03:13 07/20/19 03:13 07/20/19 03:13 07/20/19 03:13 07/20/19 08:00 Intake & Output 07/19/19 07/20/19 07/21/19 06:59 06:59 06:59 Intake Total 660 1000 Output Total 1075 550 Balance -415 450 Weight 123.7 kg 128.1 kg General appearance: PRESENT: no acute distress, cooperative, morbidly obese Head exam: PRESENT: atraumatic Eye exam: PRESENT: PERRLA Mouth exam: PRESENT: moist, tongue midline Teeth exam: PRESENT: poor dentation Neck exam: ABSENT: carotid bruit, JVD, lymphadenopathy, thyromegaly Respiratory exam: PRESENT: decreased breath sounds Cardiovascular exam: PRESENT: irregular rhythm GI/Abdominal exam: PRESENT: normal bowel sounds, soft. ABSENT: distended, guarding, mass, organolmegaly, rebound, tenderness Rectal exam: PRESENT: deferred Extremities exam: PRESENT: full ROM, +2 edema. ABSENT: calf tenderness, clubbing, pedal edema Neurological exam: PRESENT: alert, awake, oriented to person, oriented to place, oriented to time, oriented to situation, CN II-XII grossly intact, other - Chronic venous dialysis in both lower extremities with erythema.. ABSENT: motor sensory deficit Results Laboratory Results: 07/20/19 06:00 07/20/19 06:00 07/20/19 07/20/19 06:00 06:00 WBC 10.2 RBC 3.23 L Hgb 9.4 L Hct 29.1 L MCV 90 MCH 29.1 MCHC 32.2 RDW 20.8 H Plt Count 151 Seg Neutrophils % 51.1 Sodium 140.8 Potassium 4.4 Chloride 109 H Carbon Dioxide 24 Anion Gap 8 BUN 23 H Creatinine 7.26 H Est GFR ( Amer) 9 L Glucose 88 Calcium 9.4 Phosphorus 6.4 H Magnesium 1.8 Total Bilirubin 0.6 AST 40 Alkaline Phosphatase 127 H Total Protein 7.2 Albumin 2.5 L 07/11/19 15:20 NT-Pro-B Natriuret Pep 372 Impressions: Chest X-Ray 07/11/19 00:00 IMPRESSION: Bibasilar airspace disease. Foot X-Ray 07/11/19 15:38 IMPRESSION: No aggressive bony demineralization or periosteal new bone worrisome for osteomyelitis. Profound edema and skin thickening over both the right and left dorsal foot Renal Ultrasound 07/17/19 00:00 IMPRESSION: Normal study. Assessment and Plan - Diagnosis (1) Bilateral cellulitis of lower leg Is this a current diagnosis for this admission?: Yes Plan: Improved; decreased erythema, edema, and tenderness to lower extremities today. Blood cultures are negative at 72 hours. Arterial Doppler pending. Venous Doppler is negative for evidence of DVT or obstruction in the bilateral lower extremities. ESR 88, CRP 43.3 A1c 4.8 % Patient is admitted to the medical floor on continuous cardiac telemetry. He was empirically placed on IV vancomycin and Zosyn. Discontinued yesterday secondary to Van trough >50 and CARMELA. Received 2 days of IV antibiotic therapy. Patient remains afebrile with a normal WBC. He did receive a one-time IV Diflucan by the ED provider. Surgery is consulted; appreciate Dr. Calhoun's evaluation recommendations. Keep extremities elevated. 07/16/2019-patient admitted with bilateral lower extremity cellulitis still have 2+ edema. Venous Doppler is negative for DVT plan is to do the arterial Doppler today as recommended by the surgeons. Cultures are negative. Patient is not on antibiotics at this moment.. WBC is within normal limits. 07/17/2019-patient admitted with bilateral cellulitis status post debridement of the necrotic wound on the left ankle. Physical therapy is working with the patient. Cultures are negative so far. WBC count within normal limits. D oppler is negative for DVTs. Arterial Dopplers pending. Patient says is extremely weak and unable to ambulate he prefers to stay at least another day. 07/18/2019-patient admitted with bilateral lower extremity cellulitis and he has a chronic venous stasis in both legs. Status post debridement of the wound in the left leg. Off the antibiotics at this moment. Patient is to go to a rehab facility for further management. 07/19/2019-patient was admitted with bilateral lower extremity cellulitis he has chronic venous stasis. DVT studies are negative for acute pathology arterial Doppler is negative for obstruction. He has this persistent 2+ pedal edema and his chronic skin changes. Presently not on antibiotics. Afebrile. 07/20/2019-patient came in with a lateral lower leg swelling most likely chronic venous stasis. Status post debridement of the wound on the left leg. Venous Dopplers negative for acute pathology arterial Dopplers negative for acute pathology. (2) Stasis ulcer Qualifiers: Venous stasis ulcer site: ankle Varicose vein presence: unspecified whether present Laterality: left Is this a current diagnosis for this admission?: Yes Plan: Now S/P bedside debridement by surgery. Cultures and antibiotics as above. Evaluation and management as above. Wound care per surgery's expertise. May ambulate w/ post op shoe over Kodak on left 07/16/2019-patient has a stasis ulcer status post debridement by surgery. Cultures are negative so far. Presently not on antibiotics afebrile and WBC count is within normal limits. 07/17/2019-patient has a status ulcer status post debridement. Cultures are negative so far. Afebrile. Presently not on antibiotics. Physical therapy is working with the patient. Patient said he is extremely weak unable to get up and walk prefers to stay at least another day. 07/18/2019-status post debridement. Cultures are negative. Afebrile. Patient is off the antibiotic. PT consult is going to be requested for rehab placement. 07/20/2019-patient has a stasis ulcer foul-smelling no signs of infection. Patient is presently off the antibiotics. (3) Anemia Qualifiers: Anemia type: unspecified type Qualified Code(s): D64.9 - Anemia, unspecified Is this a current diagnosis for this admission?: Yes Plan: Hemoglobin 9.4 Appears to be at baseline. Likely secondary to nutritional deficiencies and chronic alcohol use. No evidence of active bleeding. Continue multivitamin. 07/16/2019-patient hemoglobin is 9.4 at baseline. Anemia of chronic disease most likely secondary to chronic alcohol abuse and nutritional deficiencies. 07/17/2019-latest hemoglobin is 9.4 stable. Today's labs are pending. 07/18/2019-patient's hemoglobin today is 9.5. Stable. Plan is to continue to closely monitor the labs. 07/19/2019-patient hemoglobin is 9.5 stable. Plan is to continue to closely monitor his hemoglobin. 07/20/2019-patient's hemoglobin today is 9.4 stable. Patient has anemia of chronic disease. (4) Alcohol dependence Is this a current diagnosis for this admission?: Yes (5) COPD (chronic obstructive pulmonary disease) Qualifiers: COPD type: chronic bronchitis Chronic bronchitis type: unspecified Qualified Code(s): J42 - Unspecified chronic bronchitis Is this a current diagnosis for this admission?: No (6) CARMELA (acute kidney injury) Is this a current diagnosis for this admission?: Yes Plan: Creatinine of 3.63 today, baseline 0.60. Likely secondary to ATN related to IV vancomycin and Zosyn. Yesterday the patient's Vanc trough was 56.3 Serum osmolarity is 284. Urine osmolarity and sodium pending. Vancomycin and Zosyn are discontinued. Continue IV fluids. Daily chemistries. 07/16/2019-serum creatinine is continued to trending up to date is 4.52. Patient is nonoliguric. IV vancomycin and Zosyn are discontinued. Plan is to place a consult for nephrology today. 07/17/2019-patient is nonoliguric creatinine went up to 4.5 yesterday. Not on antibiotics. Nephrology consult was requested to request a renal ultrasound today. 07/18/2019-serum creatinine is 5.[address] a Atkins's catheter to get a strict input output chart and nephrology on board. AKA most likely secondary to ATN caused by vancomycin and Zosyn. 07/19/2019-patient is nonoliguric serum creatinine was 6.5 today. Most likely developed CARMELA due to acute tubular necrosis due to antibiotics vancomycin and Zosyn. Antibiotics are on hold. Nephrology on board. 07/20/2019-patient has extensive bilateral edema and a creatinine worsened to 7.26 today most likely ATN secondary to antibiotics he is on dialysis today. Hopefully his kidney function started recovering with the dialysis. - Time Time Spent with patient: 25-34 minutes Medications reviewed and adjusted accordingly: Yes Anticipated discharge: SNF
--- NOTE | 2019-07-20 12:37 | PDOC PROGRESS REPORT ---
Subjective Progress Note for:: 07/20/19 Subjective:: I am seeing the patient during dialysis treatment this morning. He is being dialyzed for his right femoral trialysis catheter that was placed by Dr. Schmidt yesterday. We are running it at the reverse. Patient is tolerating dialysis so far and has no complaints. He said he feels fine and has no new complaints. His urine output for the last 24 hours with a Atkins catheter and is only 550 mL which is a decrease from 2 days ago. His creatinine continues to increase now at 7.26. Reason For Visit: CELLULITIS Physical Exam Vital Signs: Temp Pulse Resp BP Pulse Ox 98.6 F 83 15 114/67 96 07/20/19 03:13 07/20/19 03:13 07/20/19 03:13 07/20/19 03:13 07/20/19 08:00 Intake & Output 07/19/19 07/20/19 07/21/19 06:59 06:59 06:59 Intake Total 660 1000 Output Total 1075 550 Balance -415 450 Weight 123.7 kg 128.1 kg Vitals during dialysis: Blood pressure 130/71, heart rate of 87, blood flow rate of 250 mL/min and dialysate flow rate of 500 mL/min. Exam: General appearance: PRESENT: no acute distress, cooperative, well-developed, well-nourished Head exam: PRESENT: atraumatic, normocephalic Eye exam: PRESENT: conjunctiva pale, PERRLA. ABSENT: scleral icterus Neck exam: ABSENT: JVD Respiratory exam: PRESENT: Diminished breath sounds. ABSENT: crackles, rales, rhonchi, unlabored, wheezes Cardiovascular exam: PRESENT: Regular rate rhythm -+S1, +S2. ABSENT: diastolic murmur, systolic murmur GI/Abdominal exam: PRESENT: normal bowel sounds, soft. ABSENT: guarding, mass, tenderness Extremities exam: Grade 2 bilateral lower extremity pitting edema, mild erythema on both legs, left ankle is still wrapped up in dressing and Kodak wrap. Neurological exam: PRESENT: alert, awake, oriented to person, place and time. Skin exam: PRESENT: dry, warm, Results Laboratory Results: 07/20/19 06:00 07/20/19 06:00 07/20/19 07/20/19 06:00 06:00 WBC 10.2 RBC 3.23 L Hgb 9.4 L Hct 29.1 L MCV 90 MCH 29.1 MCHC 32.2 RDW 20.8 H Plt Count 151 Seg Neutrophils % 51.1 Sodium 140.8 Potassium 4.4 Chloride 109 H Carbon Dioxide 24 Anion Gap 8 BUN 23 H Creatinine 7.26 H Est GFR ( Amer) 9 L Glucose 88 Calcium 9.4 Phosphorus 6.4 H Magnesium 1.8 Total Bilirubin 0.6 AST 40 Alkaline Phosphatase 127 H Total Protein 7.2 Albumin 2.5 L 07/11/19 15:20 NT-Pro-B Natriuret Pep 372 Impressions: Chest X-Ray 07/11/19 00:00 IMPRESSION: Bibasilar airspace disease. Foot X-Ray 07/11/19 15:38 IMPRESSION: No aggressive bony demineralization or periosteal new bone worrisome for osteomyelitis. Profound edema and skin thickening over both the right and left dorsal foot Renal Ultrasound 07/17/19 00:00 IMPRESSION: Normal study. Assessment & Plan - Diagnosis (1) CARMELA (acute kidney injury) Is this a current diagnosis for this admission?: Yes Plan: Patient is still nonoliguric, however his kidney function continues to significantly worsen every single day. This is due to ATN due to vancomycin toxicity and the combination of IV vancomycin and Zosyn. Due to the rapid deterioration of the patient's kidney function I am initiating renal replacement therapy to hopefully help with recovery faster and to prevent uremic symptoms. Discussed with patient regarding benefits of dialysis to help him clean his blood. Discussed how the procedure is done. Discussed the risks for dialysis including bleeding, infection, hemodynamic instability including hypotension and cardiac arrest. Patient agreed to proceed. We will do dialysis today for 2.5 hours, using the patient's right groin trialysis catheter, with 2 potassium bath, blood flow rate of 250 mL per minute, dialysate flow rate of 500 mL per minute, ultrafiltration 500 to 1000 mL as tolerated, no heparin and no Procrit. Patient is being monitored throughout dialysis treatment. We will reevaluate kidney function on Monday and decide if he needs further renal replacement therapy. (2) Bilateral cellulitis of lower leg Is this a current diagnosis for this admission?: Yes (3) Stasis ulcer Qualifiers: Venous stasis ulcer site: ankle Varicose vein presence: unspecified whether present Laterality: left Is this a current diagnosis for this admission?: Yes (4) Alcohol dependence Is this a current diagnosis for this admission?: Yes (5) Anemia Qualifiers: Anemia type: unspecified type Qualified Code(s): D64.9 - Anemia, unspecified Is this a current diagnosis for this admission?: Yes - Time Time with patient: 15-25 minutes
[2019-07-20] MEDS: FLUTICASONE/VILANTEROL 200-25 MCG/DOSE IH SCH (13:15)
[2019-07-20] MEDS: NYSTATIN TOPICAL POWDER 15 GM TP SCH (13:16)
[2019-07-20] MEDS: LORATADINE 10 MG TABLET PO SCH ×2 (13:16→14:23)
[2019-07-20] MEDS: DOCUSATE SODIUM 100 MG CAPSULE PO SCH ×2 (13:16→14:14)
[2019-07-20] MEDS: FOLIC ACID 1 MG TABLET PO SCH ×2 (13:16→14:17)
[2019-07-20] MEDS: FLUTICASONE NASAL SPRAY 50 MCG/SPRY 120 SPRAY/16 GM NASL SCH (13:16)
[2019-07-20] MEDS: CYANOCOBALAMIN (VITAMIN B-12) 1,000 MCG TABLET PO SCH ×2 (13:17→14:21)
[2019-07-20] MEDS: NICOTINE 21 MG/24 HR PATCH.TD24 TD SCH ×2 (13:17→14:12)
[2019-07-20] MEDS: THIAMINE HCL 100 MG TABLET PO SCH ×2 (13:17→14:22)
[2019-07-20] MEDS: MULTIVIT-STRESS FORMULA/ZINC TABLET PO SCH ×2 (13:18→14:19)
[2019-07-20] MEDS: RIVAROXABAN 10 MG TABLET PO SCH ×2 (13:18→14:16)
[2019-07-20] MEDS: CHOLECALCIFEROL (D3) 1,000 UNIT (25 MCG) TABLET PO SCH ×2 (13:18→14:20)
[2019-07-20] MEDS: MELATONIN 5 MG TABLET PO SCH (23:00)
[2019-07-20] MEDS: ATORVASTATIN CALCIUM 40 MG TABLET PO SCH (23:00)
[2019-07-20] MEDS: TRAZODONE HCL 50 MG TABLET PO SCH (23:00)
[2019-07-20] MEDS: MONTELUKAST SODIUM 10 MG TABLET PO SCH (23:00)
[2019-07-21 05:05] LABS: ABSOLUTE BASOPHILS # (AUTO) 0.1 10^3/uL (0.0-0.2); ABSOLUTE EOSINOPHILS # (AUTO) 0.1 10^3/uL (0.0-0.6); ABSOLUTE LYMPHOCYTES (AUTO) 3.5 10^3/uL (0.5-4.7); ABSOLUTE MONOCYTES (AUTO) 1.2 10^3/uL (0.1-1.4); ABSOLUTE NEUT (AUTO) 4.3 10^3/uL (1.7-8.2); BASOPHILS % (AUTO) 1.1 % (0-2); EOSINOPHILS % (AUTO) 1.5 % (0-6); HEMATOCRIT 27.1 % (37.9-51.0); LYMPHOCYTES % (AUTO) 37.5 % (13-45); MEAN CORPUSCULAR HEMOGLOBIN 29.6 pg (27.0-33.4); MEAN CORPUSCULAR HGB CONC 33.1 g/dL (32.0-36.0); MEAN CORPUSCULAR VOLUME 89 fl (80-97); MONOCYTES % (AUTO) 13.2 % (3-13); PLATELET COUNT 158 10^3/uL (150-450); RED BLOOD COUNT 3.03 10^6/uL (4.35-5.55); RED CELL DISTRIBUTION WIDTH 20.7 % (11.5-14.0); SEGMENTED NEUTROPHILS % (AUTO) 46.7 % (42-78); TOTAL CELLS COUNTED % (AUTO) 100 %; WHITE BLOOD COUNT 9.2 10^3/uL (4.0-10.5)
[2019-07-21 05:24] LABS: ALBUMIN 2.3 g/dL (3.5-5.0); ALKALINE PHOSPHATASE 129 U/L (38-126); ANION GAP 7 (5-19); ASPARTATE AMINO TRANSFERASE 34 U/L (17-59); BILIRUBIN,DIRECT 0.4 mg/dL (0.0-0.4); BILIRUBIN,TOTAL 0.4 mg/dL (0.2-1.3); BLOOD UREA NITROGEN 19 mg/dL (7-20); CALCIUM 8.8 mg/dL (8.4-10.2); CARBON DIOXIDE 28 mmol/L (22-30); CHLORIDE 106 mmol/L (98-107); GLUCOSE 81 mg/dL (75-110); POTASSIUM 4.2 mmol/L (3.6-5.0); TOTAL PROTEIN 6.5 g/dL (6.3-8.2)
[2019-07-21] MEDS: OXYCODONE HCL IR 5 MG TABLET PO SCH ×3 (05:41→18:05)
[2019-07-21] MEDS: PANTOPRAZOLE SODIUM 40 MG TABLET.DR PO SCH (05:41)
[2019-07-21] MEDS: PREGABALIN 75 MG CAPSULE PO SCH ×2 (05:42→18:05)
[2019-07-21] MEDS: FLUTICASONE/VILANTEROL 200-25 MCG/DOSE IH SCH (11:30)
[2019-07-21] MEDS: DOCUSATE SODIUM 100 MG CAPSULE PO SCH (11:30)
[2019-07-21] MEDS: LORATADINE 10 MG TABLET PO SCH (11:30)
[2019-07-21] MEDS: FLUTICASONE NASAL SPRAY 50 MCG/SPRY 120 SPRAY/16 GM NASL SCH (11:30)
[2019-07-21] MEDS: NICOTINE 21 MG/24 HR PATCH.TD24 TD SCH (11:31)
[2019-07-21] MEDS: THIAMINE HCL 100 MG TABLET PO SCH (11:31)
[2019-07-21] MEDS: NYSTATIN TOPICAL POWDER 15 GM TP SCH (11:31)
[2019-07-21] MEDS: FOLIC ACID 1 MG TABLET PO SCH (11:31)
[2019-07-21] MEDS: RIVAROXABAN 10 MG TABLET PO SCH (11:32)
[2019-07-21] MEDS: CHOLECALCIFEROL (D3) 1,000 UNIT (25 MCG) TABLET PO SCH (11:32)
[2019-07-21] MEDS: MULTIVIT-STRESS FORMULA/ZINC TABLET PO SCH (11:33)
[2019-07-21] MEDS: CYANOCOBALAMIN (VITAMIN B-12) 1,000 MCG TABLET PO SCH (11:38)
--- NOTE | 2019-07-21 12:03 | PDOC PROGRESS REPORT ---
Subjective Subjective:: 64 year old male, who is a poor historian but by medical record is confirmed to have a past medical history significant for Chronic respiratory failure with hypoxia (on home O2), lymphedema, opiate dependent chronic pain, COPD, CAD, DVT, PE, GERD, obesity, RONIT, alcohol and tobacco dependence who presented to the emergency department today with a complaint of worsening appearance of chronic wound to his left medial ankle; now with sloughing and purulent drainage, increased pain, and erythematous border. Patient reports that he has been seen by Dr. Cruz in the past, however, it has been more than a month since he has had an appointment. He is unable to tell me with the current plan of therapy is. Evaluation in the emergency department revealed baseline anemia (hemoglobin 10.2), INR of 2.22 (home medication list shows Xarelto), hypokalemia (2.8) hyper magnesium (1.3), elevated lactic acid (3.8), negative urinalysis, and EKG demonstrating normal sinus rhythm. A right foot x-ray was negative for bony demineralization but does demonstrate profound edema of the skin over bilateral feet. Patient was provided IV vancomycin and Diflucan. He is referred to the hospitalist service for admission and management of the above-stated complaints and findings. [id number]-old male with multiple medical problems including chronic respiratory failure on home oxygen, lymphedema, chronic pain, COPD history of DVT, pulmonary embolism gastroparesis reflux disease obstructive sleep apnea tobacco abuse admitted for chronic wound on the left medial ankle. It is getting treated for bilateral lower leg cellulitis. Afebrile. T-max is 97.5. Denies any complaints. 07/17/2019 -64-year-old with multiple medical problems including COPD on home oxygen, opiate dependency chronic pain, COPD, coronary artery disease, DVT, PE, gastric further reflux disease, obesity, obstructive sleep apnea admitted for chronic wound on the left medial ankle status post debridement done on 07/12/2019. Physical therapy is working with the patient. Afebrile. 07/18/2019-no acute events in the last 24 hours. Patient saying urinary output is decreasing. Creatinine worsened to 5.9. Nephrology on board. CARMELA most likely secondary to ATN caused by vancomycin and Zosyn. Patient is presently off the antibiotic. Patient has massive bilateral pedal edema probably secondary venous dialysis DVT studies are negative artery Doppler studies are pending. Physical therapy consult was requested patient may need to go to a rehab facility. 07/19/2019-creatinine continue to worse. Latest serum creatinine is 6.5. Atkins's catheter was placed yesterday has a urinary output of 1 L. Nephrology on board. Patient denies any chest pains denies any shortness of breath. He has persistent chronic lower extremity edema he kindly agreed to go to rehab facility because he is unable to stand up and walk. 07/20/2019-latest creatinine 7.26. Patient's dialysis catheter was placed in the right groin yesterday. She is having the dialysis this morning. Comfortable in the dialysis chair not in distress. 07/21/2019-patient has had dialysis yesterday. Which was successful. 1500 cc of fluid is removed. No acute events in the last 24 hours. Afebrile. Reason For Visit: CELLULITIS Physical Exam Vital Signs: Temp Pulse Resp BP Pulse Ox 98.6 F 86 15 98/56 L 98 07/21/19 07:42 07/21/19 07:42 07/21/19 03:44 07/21/19 07:42 07/21/19 07:42 Intake & Output 07/20/19 07/21/19 07/22/19 06:59 06:59 06:59 Intake Total 1000 1200 Output Total 550 1425 Balance 450 -225 Weight 128.1 kg 128 kg General appearance: PRESENT: cooperative, morbidly obese Head exam: PRESENT: atraumatic Eye exam: PRESENT: PERRLA Mouth exam: PRESENT: moist, tongue midline Teeth exam: PRESENT: poor dentation Neck exam: ABSENT: carotid bruit, JVD, lymphadenopathy, thyromegaly Respiratory exam: PRESENT: decreased breath sounds Cardiovascular exam: PRESENT: RRR. ABSENT: diastolic murmur, rubs, systolic murmur Vascular exam: PRESENT: normal capillary refill GI/Abdominal exam: PRESENT: normal bowel sounds, soft. ABSENT: distended, guarding, mass, organolmegaly, rebound, tenderness Rectal exam: PRESENT: deferred Extremities exam: PRESENT: +2 edema Psychiatric exam: PRESENT: appropriate affect, normal mood. ABSENT: homicidal ideation, suicidal ideation Skin exam: PRESENT: dry, intact, warm. ABSENT: cyanosis, rash Results Laboratory Results: 07/21/19 04:25 07/21/19 04:25 07/21/19 07/21/19 04:25 04:25 WBC 9.2 RBC 3.03 L Hgb 9.0 L Hct 27.1 L MCV 89 MCH 29.6 MCHC 33.1 RDW 20.7 H Plt Count 158 Seg Neutrophils % 46.7 Sodium 140.8 Potassium 4.2 Chloride 106 Carbon Dioxide 28 Anion Gap 7 BUN 19 Creatinine 5.97 H Est GFR ( Amer) 12 L Glucose 81 Calcium 8.8 Magnesium 1.7 Total Bilirubin 0.4 AST 34 Alkaline Phosphatase 129 H Total Protein 6.5 Albumin 2.3 L 07/11/19 15:20 NT-Pro-B Natriuret Pep 372 Impressions: Chest X-Ray 07/11/19 00:00 IMPRESSION: Bibasilar airspace disease. Foot X-Ray 07/11/19 15:38 IMPRESSION: No aggressive bony demineralization or periosteal new bone worrisome for osteomyelitis. Profound edema and skin thickening over both the right and left dorsal foot Renal Ultrasound 07/17/19 00:00 IMPRESSION: Normal study. Assessment and Plan - Diagnosis (1) CARMELA (acute kidney injury) Is this a current diagnosis for this admission?: Yes Plan: Creatinine of 3.63 today, baseline 0.60. Likely secondary to ATN related to IV vancomycin and Zosyn. Yesterday the patient's Vanc trough was 56.3 Serum osmolarity is 284. Urine osmolarity and sodium pending. Vancomycin and Zosyn are discontinued. Continue IV fluids. Daily chemistries. 07/16/2019-serum creatinine is continued to trending up to date is 4.52. Patient is nonoliguric. IV vancomycin and Zosyn are discontinued. Plan is to place a consult for nephrology today. 07/17/2019-patient is nonoliguric creatinine went up to 4.5 yesterday. Not on antibiotics. Nephrology consult was requested to request a renal ultrasound today. 07/18/2019-serum creatinine is 5.[address] a Atkins's catheter to get a strict input output chart and nephrology on board. AKA most likely secondary to ATN caused by vancomycin and Zosyn. 07/19/2019-patient is nonoliguric serum creatinine was 6.5 today. Most likely developed CARMELA due to acute tubular necrosis due to antibiotics vancomycin and Zosyn. Antibiotics are on hold. Nephrology on board. 07/20/2019-patient has extensive bilateral edema and a creatinine worsened to 7.26 today most likely ATN secondary to antibiotics he is on dialysis today. Hopefully his kidney function started recovering with the dialysis. 07/21/2019-patient developed acute renal failure most likely secondary to vancomycin and Zosyn those antibiotics are stopped several days ago. Patient has a dialysis session was yesterday. Creatinine came down to 5.97 today. Plan is to recheck the labs tomorrow. Patient is still nonoliguric. (2) Bilateral cellulitis of lower leg Is this a current diagnosis for this admission?: Yes Plan: Improved; decreased erythema, edema, and tenderness to lower extremities today. Blood cultures are negative at 72 hours. Arterial Doppler pending. Venous Doppler is negative for evidence of DVT or obstruction in the bilateral lower extremities. ESR 88, CRP 43.3 A1c 4.8 % Patient is admitted to the medical floor on continuous cardiac telemetry. He was empirically placed on IV vancomycin and Zosyn. Discontinued yesterday secondary to Van trough >50 and CARMELA. Received 2 days of IV antibiotic therapy. Patient remains afebrile with a normal WBC. He did receive a one-time IV Diflucan by the ED provider. Surgery is consulted; appreciate Dr. Calhoun's evaluation recommendations. Keep extremities elevated. 07/16/2019-patient admitted with bilateral lower extremity cellulitis still have 2+ edema. Venous Doppler is negative for DVT plan is to do the arterial Doppler today as recommended by the surgeons. Cultures are negative. Patient is not on antibiotics at this moment.. WBC is within normal limits. 07/17/2019-patient admitted with bilateral cellulitis status post debridement of the necrotic wound on the left ankle. Physical therapy is working with the patient. Cultures are negative so far. WBC count within normal limits. Doppler is negative for DVTs. Arterial Dopplers pending. Patient says is extremely weak and unable to ambulate he prefers to stay at least another day. 07/18/2019-patient admitted with bilateral lower extremity cellulitis and he has a chronic venous stasis in both legs. Status post debridement of the wound in the left leg. Off the antibiotics at this moment. Patient is to go to a rehab facility for further management. 07/19/2019-patient was admitted with bilateral lower extremity cellulitis he has chronic venous stasis. DVT studies are negative for acute pathology arterial Doppler is negative for obstruction. He has this persistent 2+ pedal edema and his chronic skin changes. Presently not on antibiotics. Afebrile. 07/20/2019-patient came in with a lateral lower leg swelling most likely chronic venous stasis. Status post debridement of the wound on the left leg. Venous Dopplers negative for acute pathology arterial Dopplers negative for acute pathology. 07/21/2019-patient still have a persistent pedal edema with erythema of the lower extremities afebrile he is off the antibiotics. Edema is improving with dialysis yesterday. (3) Stasis ulcer Qualifiers: Venous stasis ulcer site: ankle Varicose vein presence: unspecified whether present Laterality: left Is this a current diagnosis for this admission?: Yes Plan: Now S/P bedside debridement by surgery. Cultures and antibiotics as above. Evaluation and management as above. Wound care per surgery's expertise. May ambulate w/ post op shoe over [employer] on left 07/16/2019-patient has a stasis ulcer status post debridement by surgery. Cultures are negative so far. Presently not on antibiotics afebrile and WBC count is within normal limits. 07/17/2019-patient has a status ulcer status post debridement. Cultures are negative so far. Afebrile. Presently not on antibiotics. Physical therapy is working with the patient. Patient said he is extremely weak unable to get up and walk prefers to stay at least another day. 07/18/2019-status post debridement. Cultures are negative. Afebrile. Patient is off the antibiotic. PT consult is going to be requested for rehab placement. 07/20/2019-patient has a stasis ulcer foul-smelling no signs of infection. Patient is presently off the antibiotics. (4) Anemia Qualifiers: Anemia type: unspecified type Qualified Code(s): D64.9 - Anemia, unspecified Is this a current diagnosis for this admission?: Yes Plan: Hemoglobin 9.4 Appears to be at baseline. Likely secondary to nutritional deficiencies and chronic alcohol use. No evidence of active bleeding. Continue multivitamin. 07/16/2019-patient hemoglobin is 9.4 at baseline. Anemia of chronic disease most likely secondary to chronic alcohol abuse and nutritional deficiencies. 07/17/2019-latest hemoglobin is 9.4 stable. Today's labs are pending. 07/18/2019-patient's hemoglobin today is 9.5. Stable. Plan is to continue to closely monitor the labs. 07/19/2019-patient hemoglobin is 9.5 stable. Plan is to continue to closely monitor his hemoglobin. 07/20/2019-patient's hemoglobin today is 9.4 stable. Patient has anemia of chronic disease. 07/21/2019-patient hemoglobin is 9.0. Patient has anemia of chronic disease. Most likely secondary to alcohol dependence and nutritional deficiencies. (5) Alcohol dependence Is this a current diagnosis for this admission?: Yes Plan: No evidence of withdrawal today; patient denies symptoms. Patient endorses heavy alcohol intake with history of alcohol withdrawal. Continue scheduled Valium every 6 hours PRN Ativan for anxiety/agitation/withdrawal symptoms. He is provided folic acid, thiamine, and multivitamin supplementation. (6) COPD (chronic obstructive pulmonary disease) Qualifiers: COPD type: chronic bronchitis Chronic bronchitis type: unspecified Qualified Code(s): J42 - Unspecified chronic bronchitis Is this a current diagnosis for this admission?: No - Time Time Spent with patient: 25-34 minutes Medications reviewed and adjusted accordingly: Yes Anticipated discharge: SNF
[2019-07-22] MEDS: MONTELUKAST SODIUM 10 MG TABLET PO SCH ×2 (00:14→21:55)
[2019-07-22] MEDS: TRAZODONE HCL 50 MG TABLET PO SCH ×2 (00:14→21:54)
[2019-07-22] MEDS: ATORVASTATIN CALCIUM 40 MG TABLET PO SCH ×2 (00:14→21:53)
[2019-07-22] MEDS: MELATONIN 5 MG TABLET PO SCH ×2 (00:14→21:54)
[2019-07-22] MEDS: OXYCODONE HCL IR 5 MG TABLET PO SCH ×4 (00:15→21:40)
[2019-07-22 05:28] LABS: ABSOLUTE BASOPHILS # (AUTO) 0.1 10^3/uL (0.0-0.2); ABSOLUTE EOSINOPHILS # (AUTO) 0.2 10^3/uL (0.0-0.6); ABSOLUTE LYMPHOCYTES (AUTO) 3.2 10^3/uL (0.5-4.7); ABSOLUTE MONOCYTES (AUTO) 1.5 10^3/uL (0.1-1.4); ABSOLUTE NEUT (AUTO) 4.7 10^3/uL (1.7-8.2); EOSINOPHILS % (AUTO) 2.2 % (0-6); HEMATOCRIT 27.8 % (37.9-51.0); LYMPHOCYTES % (AUTO) 33.1 % (13-45); MEAN CORPUSCULAR HGB CONC 32.2 g/dL (32.0-36.0); MEAN CORPUSCULAR VOLUME 90 fl (80-97); MONOCYTES % (AUTO) 15.5 % (3-13); PLATELET COUNT 168 10^3/uL (150-450); RED BLOOD COUNT 3.09 10^6/uL (4.35-5.55); RED CELL DISTRIBUTION WIDTH 20.6 % (11.5-14.0); SEGMENTED NEUTROPHILS % (AUTO) 48.2 % (42-78); TOTAL CELLS COUNTED % (AUTO) 100 %; WHITE BLOOD COUNT 9.7 10^3/uL (4.0-10.5)
[2019-07-22 05:37] LABS: ALBUMIN 2.5 g/dL (3.5-5.0); ALKALINE PHOSPHATASE 130 U/L (38-126); ANION GAP 7 (5-19); ASPARTATE AMINO TRANSFERASE 55 U/L (17-59); BILIRUBIN,DIRECT 0.4 mg/dL (0.0-0.4); BILIRUBIN,TOTAL 0.5 mg/dL (0.2-1.3); BLOOD UREA NITROGEN 25 mg/dL (7-20); CALCIUM 8.9 mg/dL (8.4-10.2); CARBON DIOXIDE 27 mmol/L (22-30); CHLORIDE 108 mmol/L (98-107); GLUCOSE 82 mg/dL (75-110); POTASSIUM 4.8 mmol/L (3.6-5.0); TOTAL PROTEIN 6.9 g/dL (6.3-8.2)
[2019-07-22] MEDS: PANTOPRAZOLE SODIUM 40 MG TABLET.DR PO SCH (06:08)
[2019-07-22] MEDS: PREGABALIN 75 MG CAPSULE PO SCH ×2 (06:08→18:14)
[2019-07-22 09:36] LABS: HEPATITS B SURFACE ANTIGEN Negative (Negative)
[2019-07-22 09:53] LABS: HEPATITIS B CORE AB TOT Negative (Negative)
--- NOTE | 2019-07-22 11:22 | PDOC PROGRESS REPORT ---
Subjective Progress Note for:: 07/22/19 Subjective:: 64 year old male, who is a poor historian but by medical record is confirmed to have a past medical history significant for Chronic respiratory failure with hypoxia (on home O2), lymphedema, opiate dependent chronic pain, COPD, CAD, DVT, PE, GERD, obesity, RONIT, alcohol and tobacco dependence who presented to the emergency department today with a complaint of worsening appearance of chronic wound to his left medial ankle; now with sloughing and purulent drainage, increased pain, and erythematous border. Patient reports that he has been seen by Dr. Cruz in the past, however, it has been more than a month since he has had an appointment. He is unable to tel l me with the current plan of therapy is. Evaluation in the emergency department revealed baseline anemia (hemoglobin 10.2), INR of 2.22 (home medication list shows Xarelto), hypokalemia (2.8) hyper magnesium (1.3), elevated lactic acid (3.8), negative urinalysis, and EKG demonstrating normal sinus rhythm. A right foot x-ray was negative for bony demineralization but does demonstrate profound edema of the skin over bilateral feet. Patient was provided IV vancomycin and Diflucan. He is referred to the hospitalist service for admission and management of the above-stated complaints and findings. 07/[id number]-old male with multiple medical problems including chronic respiratory failure on home oxygen, lymphedema, chronic pain, COPD history of DVT, pulmonary embolism gastroparesis reflux disease obstructive sleep apnea tobacco abuse admitted for chronic wound on the left medial ankle. It is getting treated for bilateral lower leg cellulitis. Afebrile. T-max is 97.5. Denies any complaints. 07/17/2019 -64-year-old with multiple medical problems including COPD on home oxygen, opiate dependency chronic pain, COPD, coronary artery disease, DVT, PE, gastric further reflux disease, obesity, obstructive sleep apnea admitted for chronic wound on the left medial ankle status post debridement done on 07/12/2019. Physical therapy is working with the patient. Afebrile. 07/18/2019-no acute events in the last 24 hours. Patient saying urinary output is decreasing. Creatinine worsened to 5.9. Nephrology on board. CARMELA most likely secondary to ATN caused by vancomycin and Zosyn. Patient is presently off the antibiotic. Patient has massive bilateral pedal edema probably secondary venous dialysis DVT studies are negative artery Doppler studies are pending. Physical therapy consult was requested patient may need to go to a rehab facility. 07/19/2019-creatinine continue to worse. Latest serum creatinine is 6.5. Atkins's catheter was placed yesterday has a urinary output of 1 L. Nephrology on board. Patient denies any chest pains denies any shortness of breath. He has pe rsistent chronic lower extremity edema he kindly agreed to go to rehab facility because he is unable to stand up and walk. 07/20/2019-latest creatinine 7.26. Patient's dialysis catheter was placed in the right groin yesterday. She is having the dialysis this morning. Comfortable in the dialysis chair not in distress. 07/21/2019-patient has had dialysis yesterday. Which was successful. 1500 cc of fluid is removed. No acute events in the last 24 hours. Afebrile. 07/22/2019-patient is getting dialysis today. He is more alert more awake compared to yesterday. Most likely uremic symptoms are improving. Plan is to remove 1500 cc of fluid today. His arm is less swollen compared to yesterday still have a bilateral pedal edema with erythema. His creatinine this morning went back up to 7.12. BUN is 95. Patient is comfortable in the chair denies any complaints. Reason For Visit: CELLULITIS Physical Exam Vital Signs: Temp Pulse Resp BP Pulse Ox 99.2 F 79 14 106/59 L 97 07/22/19 03:49 07/22/19 03:49 07/22/19 03:49 07/22/19 03:49 07/22/19 03:49 Intake & Output 07/21/19 07/22/19 07/23/19 06:59 06:59 06:59 Intake Total 1200 840 Output Total 1425 1505 Balance -225 -665 Weight 128 kg 125.8 kg General appearance: PRESENT: no acute distress Head exam: PRESENT: atraumatic Eye exam: PRESENT: PERRLA Mouth exam: PRESENT: neck supple Teeth exam: PRESENT: poor dentation Neck exam: ABSENT: carotid bruit, JVD, lymphadenopathy, thyromegaly Respiratory exam: PRESENT: decreased breath sounds Pulses: PRESENT: normal dorsalis pedis pul GI/Abdominal exam: PRESENT: normal bowel sounds, soft. ABSENT: distended, guarding, mass, organolmegaly, rebound, tenderness Rectal exam: PRESENT: deferred Gentrourinary exam: PRESENT: indwelling catheter - erythema present. Extremities exam: PRESENT: +2 edema, other Neurological exam: PRESENT: alert, awake, oriented to person, oriented to place, oriented to time, oriented to situation, CN II-XII grossly intact. ABSENT: motor sensory deficit Psychiatric exam: PRESENT: anxious Results Laboratory Results: 07/22/19 04:47 07/22/19 04:47 07/22/19 07/22/19 04:47 04:47 WBC 9.7 RBC 3.09 L Hgb 9.0 L Hct 27.8 L MCV 90 MCH 29.0 MCHC 32.2 RDW 20.6 H Plt Count 168 Seg Neutrophils % 48.2 Sodium 142.0 Potassium 4.8 Chloride 108 H Carbon Dioxide 27 Anion Gap 7 BUN 25 H Creatinine 7.12 H Est GFR ( Amer) 9 L Glucose 82 Calcium 8.9 Magnesium 1.7 Total Bilirubin 0.5 AST 55 Alkaline Phosphatase 130 H Total Protein 6.9 Albumin 2.5 L 07/11/19 15:20 NT-Pro-B Natriuret Pep 372 Impressions: Chest X-Ray 07/11/19 00:00 IMPRESSION: Bibasilar airspace disease. Foot X-Ray 07/11/19 15:38 IMPRESSION: No aggressive bony demineralization or periosteal new bone worrisome for osteomyelitis. Profound edema and skin thickening over both the right and left dorsal foot Renal Ultrasound 07/17/19 00:00 IMPRESSION: Normal study. Assessment and Plan - Diagnosis (1) CARMELA (acute kidney injury) Is this a current diagnosis for this admission?: Yes Plan: Creatinine of 3.63 today, baseline 0.60. Likely secondary to ATN related to IV vancomycin and Zosyn. Yesterday the patient's Vanc trough was 56.3 Serum osmolarity is 284. Urine osmolarity and sodium pending. Vancomycin and Zosyn are discontinued. Continue IV fluids. Daily chemistries. 07/16/2019-serum creatinine is continued to trending up to date is 4.52. Patient is nonoliguric. IV vancomycin and Zosyn are discontinued. Plan is to place a consult for nephrology today. 07/17/2019-patient is nonoliguric creatinine went up to 4.5 yesterday. Not on antibiotics. Nephrology consult was requested to request a renal ultrasound t jairon. 07/18/2019-serum creatinine is 5.[address] a Atkins's catheter to get a strict input output chart and nephrology on board. AKA most likely secondary to ATN caused by vancomycin and Zosyn. 07/19/2019-patient is nonoliguric serum creatinine was 6.5 today. Most likely developed CARMELA due to acute tubular necrosis due to antibiotics vancomycin and Zosyn. Antibiotics are on hold. Nephrology on board. 07/20/2019-patient has extensive bilateral edema and a creatinine worsened to 7.26 today most likely ATN secondary to antibiotics he is on dialysis today. Hopefully his kidney function started recovering with the dialysis. 07/21/2019-patient developed acute renal failure most likely secondary to vancomycin and Zosyn those antibiotics are stopped several days ago. Patient has a dialysis session was yesterday. Creatinine came down to 5.97 today. Plan is to recheck the labs tomorrow. Patient is still nonoliguric. 07/22/2019-patient developed acute renal failure most likely secondary to ATN caused by vancomycin and Zosyn. He has dialysis session on Monday and is getting another session of dialysis today. Creatinine went back up to 7.12. Potassium within the normal limits. BUN is 25. Presently is receiving dialysis. Plan is to continue the present management nephrology on board. Patient is still making urine. (2) Bilateral cellulitis of lower leg Is this a current diagnosis for this admission?: Yes Plan: Improved; decreased erythema, edema, and tenderness to lower extremities today. Blood cultures are negative at 72 hours. Arterial Doppler pending. Venous Doppler is negative for evidence of DVT or obstruction in the bilateral lower extremities. ESR 88, CRP 43.3 A1c 4.8 % Patient is admitted to the medical floor on continuous cardiac telemetry. He was empirically placed on IV vancomycin and Zosyn. Discontinued yesterday secondary to Van trough >50 and CARMELA. Received 2 days of IV antibiotic therapy. Patient remains afebrile with a normal WBC. He did receive a one-time IV Diflucan by the ED provider. Surgery is consulted; appreciate Dr. Calhoun's evaluation recommendations. Keep extremities elevated. 07/16/2019-patient admitted with bilateral lower extremity cellulitis still have 2+ edema. Venous Doppler is negative for DVT plan is to do the arterial Doppler today as recommended by the surgeons. Cultures are negative. Patient is not on antibiotics at this moment.. WBC is within normal limits. 07/17/2019-patient admitted with bilateral cellulitis status post debridement of the necrotic wound on the left ankle. Physical therapy is working with the patient. Cultures are negative so far. WBC count within normal limits. Doppler is negative for DVTs. Arterial Dopplers pending. Patient says is extremely weak and unable to ambulate he prefers to stay at least another day. 07/18/2019-patient admitted with bilateral lower extremity cellulitis and he has a chronic venous stasis in both legs. Status post debridement of the wound in the left leg. Off the antibiotics at this moment. Patient is to go to a rehab facility for further management. 07/19/2019-patient was admitted with bilateral lower extremity cellulitis he has chronic venous stasis. DVT studies are negative for acute pathology arterial Doppler is negative for obstruction. He has this persistent 2+ pedal edema and his chronic skin changes. Presently not on antibiotics. Afebrile. 07/20/2019-patient came in with a lateral lower leg swelling most likely chronic venous stasis. Status post debridement of the wound on the left leg. Venous Dopplers negative for acute pathology arterial Dopplers negative for acute pathology. 07/21/2019-patient still have a persistent pedal edema with erythema of the lower extremities afebrile he is off the antibiotics. Edema is improving with dialysis yesterday. 07/22/2019-bilateral pedal edema with erythema is persisting. Patient is afe brile. Presently off the antibiotics. (3) Stasis ulcer Qualifiers: Venous stasis ulcer site: ankle Varicose vein presence: unspecified whether present Laterality: left Is this a current diagnosis for this admission?: Yes Plan: Now S/P bedside debridement by surgery. Cultures and antibiotics as above. Evaluation and management as above. Wound care per surgery's expertise. May ambulate w/ post op shoe over Kodak on left 07/16/2019-patient has a stasis ulcer status post debridement by surgery. Cultures are negative so far. Presently not on antibiotics afebrile and WBC count is within normal limits. 07/17/2019-patient has a status ulcer status post debridement. Cultures are negative so far. Afebrile. Presently not on antibiotics. Physical therapy is working with the patient. Patient said he is extremely weak unable to get up and walk prefers to stay at least another day. 07/18/2019-status post debridement. Cultures are negative. Afebrile. Patient is off the antibiotic. PT consult is going to be requested for rehab placement. 07/20/2019-patient has a stasis ulcer foul-smelling no signs of infection. Patient is presently off the antibiotics. 07/22/2019-patient has a stasis ulcer. No signs of any infection. No drainage. Patient is presently off the antibiotics and afebrile. (4) Anemia Qualifiers: Anemia type: unspecified type Qualified Code(s): D64.9 - Anemia, unspecified Is this a current diagnosis for this admission?: Yes Plan: Hemoglobin 9.4 Appears to be at baseline. Likely secondary to nutritional deficiencies and chronic alcohol use. No evidence of active bleeding. Continue multivitamin. 07/16/2019-patient hemoglobin is 9.4 at baseline. Anemia of chronic disease most likely secondary to chronic alcohol abuse and nutritional deficiencies. 07/17/2019-latest hemoglobin is 9.4 stable. Today's labs are pending. 07/18/2019-patient's hemoglobin today is 9.5. Stable. Plan is to continue to closely monitor the labs. 07/19/2019-patient hemoglobin is 9.5 stable. Plan is to continue to closely monitor his hemoglobin. 07/20/2019-patient's hemoglobin today is 9.4 stable. Patient has anemia of chronic disease. 07/21/2019-patient hemoglobin is 9.0. Patient has anemia of chronic disease. Most likely secondary to alcohol dependence and nutritional deficiencies. 07/22/2019-patient's hemoglobin is 9.0 stable. Plan is to continue the present management. (5) Alcohol dependence Is this a current diagnosis for this admission?: Yes (6) COPD (chronic obstructive pulmonary disease) Qualifiers: COPD type: chronic bronchitis Chronic bronchitis type: unspecified Q ualified Code(s): J42 - Unspecified chronic bronchitis Is this a current diagnosis for this admission?: No Plan: 07/16/2019-patient has history of chronic COPD on home oxygen plan is to continue the present management. 07/22/2019-patient's pulse ox today is 97% on 2 L. No complaints of shortness of breath no wheezing. - Time Time Spent with patient: 25-34 minutes Medications reviewed and adjusted accordingly: Yes Anticipated discharge: SNF
[2019-07-22 11:36] LABS: HEPATITIS C QUANTITATION HCV Not Detected IU/mL (.)
[2019-07-22] MEDS ORDERED: HEPARIN SOD (PORCINE) 100 UNIT/ML 1 ML VIAL IV PRN (12:24)
[2019-07-22] MEDS ORDERED: HEPARIN SOD (PORCINE) 1,000 UNIT/ML 10 ML VIAL INJ PRN (12:58)
--- NOTE | 2019-07-22 13:33 | PDOC PROGRESS REPORT ---
Subjective Progress Note for:: 07/22/19 Reason For Visit: Patient seen in the hospital today. Chart review was done and discussions were done with the treating nurse. He is currently being seen while on dialysis. He is a 64-year-old male with multiple medical problems including COPD on home oxygen, opiate dependency chronic pain, COPD, coronary artery disease, DVT, PE, gastric further reflux disease, obesity, obstructive sleep apnea admitted for chronic wound on the left medial ankle status post debridement done on 07/12/2019. He has nonoliguric CARMELA secondary to ATN caused by vancomycin and Zosyn. Patient is presently off the antibiotic. Patient has massive bilateral pedal edema probably secondary venous stasis. Labs and medications were reviewed that shows worsening creatinine. His creatinine prior to dialysis on Monday was 7.2 and yesterday dropped to 5.9 and today is 7.1. His base creatinine on 06/2019 was 1.0. However his admission creatinine on 07/14 was 2.3. His albumin is 2.5. His hemoglobin today is 9.0. Physical Exam Vital Signs: Temp Pulse Resp BP Pulse Ox 99.2 F 79 14 106/59 L 97 07/22/19 03:49 07/22/19 03:49 07/22/19 03:49 07/22/19 03:49 07/22/19 03:49 Intake & Output 07/21/19 07/22/19 07/23/19 06:59 06:59 06:59 Intake Total 1200 840 Output Total 1425 1505 Balance -225 -665 Weight 128 kg 125.8 kg General appearance: PRESENT: no acute distress Respiratory exam: PRESENT: decreased breath sounds. ABSENT: clear to auscultation lui, crackles Cardiovascular exam: PRESENT: +S1, +S2 GI/Abdominal exam: PRESENT: normal bowel sounds, soft. ABSENT: organomegaly, tenderness Extremities exam: PRESENT: +2 edema Neurological exam: PRESENT: alert, awake, oriented to person, oriented to place Psychiatric exam: PRESENT: appropriate affect Skin exam: PRESENT: mottled - Of venous stasis.No obvious evidences of cellulitis. He is got bandages over his foot. Results Laboratory Results: 07/22/19 04:47 07/22/19 04:47 07/22/19 07/22/19 04:47 04:47 WBC 9.7 RBC 3.09 L Hgb 9.0 L Hct 27.8 L MCV 90 MCH 29.0 MCHC 32.2 RDW 20.6 H Plt Count 168 Seg Neutrophils % 48.2 Sodium 142.0 Potassium 4.8 Chloride 108 H Carbon Dioxide 27 Anion Gap 7 BUN 25 H Creatinine 7.12 H Est GFR ( Amer) 9 L Glucose 82 Calcium 8.9 Magnesium 1.7 Total Bilirubin 0.5 AST 55 Alkaline Phosphatase 130 H Total Protein 6.9 Albumin 2.5 L 07/11/19 15:20 NT-Pro-B Natriuret Pep 372 Impressions: Chest X-Ray 07/11/19 00:00 IMPRESSION: Bibasilar airspace disease. Foot X-Ray 07/11/19 15:38 IMPRESSION: No aggressive bony demineralization or periosteal new bone worrisome for osteomyelitis. Profound edema and skin thickening over both the right and left dorsal foot Renal Ultrasound 07/17/19 00:00 IMPRESSION: Normal study. Assessment & Plan - Diagnosis (1) CARMELA (acute kidney injury) Is this a current diagnosis for this admission?: Yes Plan: Nonoliguric but with progressive rising creatinine which today has reached 7.1. Potassium 4.8. Patient back on hemodialysis today and is currently being seen. Patient is undergoing dialysis without any issues. Dialysis orders were reviewed with the treating dialysis nurse. Dialysis is being supervised to ensure safe and smooth procedure.Fluid removal is going to be an issue given his hypotension. His blood cultures are negative. We will start him on Midodrin 2.5 3 times daily. (2) Bilateral cellulitis of lower leg Is this a current diagnosis for this admission?: Yes Plan: Currently he does not show any obvious evidences of cellulitis. Obviously he was severely vanc toxic which has been discontinued along with Zosyn. Being managed by hospitalist. (3) Hypokalemia Is this a current diagnosis for this admission?: Yes Plan: Currently stable. (4) Stasis ulcer Qualifiers: Venous stasis ulcer site: ankle Varicose vein presence: unspecified whether present Laterality: left Is this a current diagnosis for this admission?: Yes Plan: Status quo. As per hospitalist. (5) Anemia Qualifiers: Anemia type: unspecified type Qualified Code(s): D64.9 - Anemia, unspecified Is this a current diagnosis for this admission?: Yes Plan: Get basic studies done. (6) Hypotension Plan: Check cortisol and start and will start him on Midodrin. (7) RONIT (obstructive sleep apnea) Plan: As per hospitalist
[2019-07-22] MEDS ORDERED: MIDODRINE HCL 5 MG TABLET PO SCH (14:00)
[2019-07-22] MEDS: APIXABAN 2.5 MG TABLET PO SCH ×2 (18:14→21:39)
[2019-07-22] MEDS: FLUTICASONE/VILANTEROL 200-25 MCG/DOSE IH SCH (20:29)
[2019-07-22] MEDS: LORATADINE 10 MG TABLET PO SCH (20:29)
[2019-07-22] MEDS: DOCUSATE SODIUM 100 MG CAPSULE PO SCH (20:29)
[2019-07-22] MEDS: FOLIC ACID 1 MG TABLET PO SCH (20:30)
[2019-07-22] MEDS: FLUTICASONE NASAL SPRAY 50 MCG/SPRY 120 SPRAY/16 GM NASL SCH (20:30)
[2019-07-22] MEDS: NYSTATIN TOPICAL POWDER 15 GM TP SCH (20:31)
[2019-07-22] MEDS: FAMOTIDINE 20 MG TABLET PO SCH ×2 (21:26→21:54)
[2019-07-22] MEDS: NICOTINE 21 MG/24 HR PATCH.TD24 TD SCH (21:26)
[2019-07-22] MEDS: THIAMINE HCL 100 MG TABLET PO SCH (21:26)
[2019-07-22] MEDS: CYANOCOBALAMIN (VITAMIN B-12) 1,000 MCG TABLET PO SCH (21:27)
[2019-07-22] MEDS: CHOLECALCIFEROL (D3) 1,000 UNIT (25 MCG) TABLET PO SCH (21:27)
[2019-07-22] MEDS: MULTIVIT-STRESS FORMULA/ZINC TABLET PO SCH (21:27)
[2019-07-22] MEDS: FUROSEMIDE INJ/PF 20 MG/2 ML SDV IV SCH (21:53)
[2019-07-23] MEDS: OXYCODONE HCL IR 5 MG TABLET PO SCH ×3 (00:14→12:05)
[2019-07-23 05:11] LABS: ABSOLUTE BASOPHILS # (AUTO) 0.1 10^3/uL (0.0-0.2); ABSOLUTE EOSINOPHILS # (AUTO) 0.3 10^3/uL (0.0-0.6); ABSOLUTE LYMPHOCYTES (AUTO) 2.6 10^3/uL (0.5-4.7); ABSOLUTE MONOCYTES (AUTO) 1.2 10^3/uL (0.1-1.4); ABSOLUTE NEUT (AUTO) 3.6 10^3/uL (1.7-8.2); ABSOLUTE RETICS # 0.039 10^6/uL (0.028-0.122); BASOPHILS % (AUTO) 0.9 % (0-2); EOSINOPHILS % (AUTO) 3.5 % (0-6); HEMATOCRIT 27.4 % (37.9-51.0); HEMOGLOBIN 8.9 g/dL (13.5-17.0); MEAN CORPUSCULAR HEMOGLOBIN 29.1 pg (27.0-33.4); MEAN CORPUSCULAR HGB CONC 32.5 g/dL (32.0-36.0); MEAN CORPUSCULAR VOLUME 90 fl (80-97); MONOCYTES % (AUTO) 15.8 % (3-13); PLATELET COUNT 163 10^3/uL (150-450); RED BLOOD COUNT 3.06 10^6/uL (4.35-5.55); RED CELL DISTRIBUTION WIDTH 20.5 % (11.5-14.0); RETICULOCYTE COUNT (AUTO) 1.26 % (0.66-2.85); SEGMENTED NEUTROPHILS % (AUTO) 45.8 % (42-78); TOTAL CELLS COUNTED % (AUTO) 100 %; WHITE BLOOD COUNT 7.8 10^3/uL (4.0-10.5)
[2019-07-23] MEDS: PREGABALIN 75 MG CAPSULE PO SCH ×2 (05:17→18:49)
[2019-07-23 05:30] LABS: ALBUMIN 2.4 g/dL (3.5-5.0); ALKALINE PHOSPHATASE 125 U/L (38-126); ANION GAP 5 (5-19); ASPARTATE AMINO TRANSFERASE 49 U/L (17-59); BILIRUBIN,DIRECT 0.3 mg/dL (0.0-0.4); BILIRUBIN,TOTAL 0.4 mg/dL (0.2-1.3); BLOOD UREA NITROGEN 16 mg/dL (7-20); CALCIUM 8.3 mg/dL (8.4-10.2); CARBON DIOXIDE 32 mmol/L (22-30); CHLORIDE 103 mmol/L (98-107); GLUCOSE 81 mg/dL (75-110); IRON(TIBC) 22.1 ug/dL (49-181); POTASSIUM 3.9 mmol/L (3.6-5.0); TOTAL PROTEIN 6.8 g/dL (6.3-8.2)
[2019-07-23 06:36] LABS: FOLATE > 20.00 ng/mL (>2.76)
[2019-07-23] MEDS: FAMOTIDINE 20 MG TABLET PO SCH ×2 (09:48→21:48)
[2019-07-23] MEDS: APIXABAN 2.5 MG TABLET PO SCH ×2 (09:48→18:49)
[2019-07-23] MEDS: CYANOCOBALAMIN (VITAMIN B-12) 1,000 MCG TABLET PO SCH (09:48)
[2019-07-23] MEDS: CHOLECALCIFEROL (D3) 1,000 UNIT (25 MCG) TABLET PO SCH (09:48)
[2019-07-23] MEDS: MULTIVIT-STRESS FORMULA/ZINC TABLET PO SCH (09:48)
[2019-07-23] MEDS: FOLIC ACID 1 MG TABLET PO SCH (09:48)
[2019-07-23] MEDS: LORATADINE 10 MG TABLET PO SCH (09:48)
[2019-07-23] MEDS: THIAMINE HCL 100 MG TABLET PO SCH (09:49)
[2019-07-23] MEDS: FUROSEMIDE INJ/PF 20 MG/2 ML SDV IV SCH ×2 (09:49→21:47)
[2019-07-23] MEDS: NICOTINE 21 MG/24 HR PATCH.TD24 TD SCH (09:49)
[2019-07-23] MEDS: DOCUSATE SODIUM 100 MG CAPSULE PO SCH (09:49)
[2019-07-23] MEDS: FLUTICASONE NASAL SPRAY 50 MCG/SPRY 120 SPRAY/16 GM NASL SCH (09:52)
[2019-07-23] MEDS: FLUTICASONE/VILANTEROL 200-25 MCG/DOSE IH SCH (09:52)
[2019-07-23] MEDS: NYSTATIN TOPICAL POWDER 15 GM TP SCH (09:53)
[2019-07-23] MEDS: MIDODRINE HCL 5 MG TABLET PO SCH ×2 (13:22→18:49)
--- NOTE | 2019-07-23 18:19 | PDOC PROGRESS REPORT ---
Subjective Progress Note for:: 07/23/19 Subjective:: 64 year old male, who is a poor historian but by medical record is confirmed to have a past medical history significant for Chronic respiratory failure with hypoxia (on home O2), lymphedema, opiate dependent chronic pain, COPD, CAD, DVT, PE, GERD, obesity, RONIT, alcohol and tobacco dependence who presented to the emergency department today with a complaint of worsening appearance of chronic wound to his left medial ankle; now with sloughing and purulent drainage, i ncreased pain, and erythematous border. Patient reports that he has been seen by Dr. Cruz in the past, however, it has been more than a month since he has had an appointment. He is unable to tell me with the current plan of therapy is. Evaluation in the emergency department revealed baseline anemia (hemoglobin 10.2), INR of 2.22 (home medication list shows Xarelto), hypokalemia (2.8) hyper magnesium (1.3), elevated lactic acid (3.8), negative urinalysis, and EKG demonstrating normal sinus rhythm. A right foot x-ray was negative for bony demineralization but does demonstrate profound edema of the skin over bilateral feet. 07/23/2019. No acute events overnight. Mild improvement of bilateral lower extremity cellulitis and edema, mild improvement of CARMELA. Denies any fever, chills, nausea, vomiting, diarrhea, constipation or any urinary symptoms. Reason For Visit: CELLULITIS Physical Exam Vital Signs: Temp Pulse Resp BP Pulse Ox 97.8 F 89 17 105/67 97 07/23/19 16:10 07/23/19 16:10 07/23/19 16:10 07/23/19 16:10 07/23/19 16:10 Intake & Output 07/22/19 07/23/19 07/24/19 06:59 06:59 06:59 Intake Total 840 940 506 Output Total 1505 1700 300 Balance -665 -760 206 Weight 125.8 kg 125.8 kg General appearance: PRESENT: no acute distress, morbidly obese, well-developed, well-nourished Respiratory exam: PRESENT: clear to auscultation lui. ABSENT: rales, rhonchi, wheezes Cardiovascular exam: PRESENT: RRR. ABSENT: diastolic murmur, rubs, systolic murmur Musculoskeletal exam: PRESENT: other - Bilateral lower extremity below the knee stasis dermatitis. Neurological exam: PRESENT: alert, awake, oriented to person, oriented to place, oriented to time, oriented to situation, CN II-XII grossly intact. ABSENT: motor sensory deficit Results Laboratory Results: 07/23/19 04:07 07/23/19 04:07 07/23/19 07/23/19 04:07 04:07 WBC 7.8 RBC 3.06 L Hgb 8.9 L Hct 27.4 L MCV 90 MCH 29.1 MCHC 32.5 RDW 20.5 H Plt Count 163 Seg Neutrophils % 45.8 Retic Count (auto) 1.26 Sodium 140.2 Potassium 3.9 Chloride 103 Carbon Dioxide 32 H Anion Gap 5 BUN 16 Creatinine 5.25 H Est GFR ( Amer) 13 L Glucose 81 Calcium 8.3 L Magnesium 1.7 Iron 22.1 L TIBC 209 L % Saturation 11 Ferritin 32.00 Total Bilirubin 0.4 AST 49 Alkaline Phosphatase 125 Total Protein 6.8 Albumin 2.4 L Vitamin B12 980.0 H Folate > 20.00 07/11/19 15:20 NT-Pro-B Natriuret Pep 372 Impressions: Chest X-Ray 07/11/19 00:00 IMPRESSION: Bibasilar airspace disease. Foot X-Ray 07/11/19 15:38 IMPRESSION: No aggressive bony demineralization or periosteal new bone worrisome for osteomyelitis. Profound edema and skin thickening over both the right and left dorsal foot Renal Ultrasound 07/17/19 00:00 IMPRESSION: Normal study. Assessment and Plan - Diagnosis (1) CARMELA (acute kidney injury) Is this a current diagnosis for this admission?: Yes Plan: Nonoliguric. Urine output 900. Most likely secondary to vancomycin and Zosyn toxicity causing ATN 07/14/2019 vancomycin trough 56.3. Vancomycin was DC'd. 07/17/2019. Renal ultrasound WNL. Status post hemodialysis on 07/23/2019. Electrolytes WNL. Nephrology on board. Recommendations noted. Plan is for continued hemodialysis. (2) Bilateral cellulitis of lower leg Is this a current diagnosis for this admission?: Yes Plan: No obvious evidence of cellulitis. Initially was started on Vanco and Zosyn and was DC'd after supratherapeutic trough and CARMELA. Cultures negative. WBC WNL. (3) Stasis ulcer Qualifiers: Venous stasis ulcer site: ankle Varicose vein presence: unspecified whether present Laterality: left Is this a current diagnosis for this admission?: Yes Plan: Mild improvement. Status post post debridement of necrotic skin and dried exudate along the left malleolar by surgery. 06/15/2019. Venous Doppler negative for any DVT also in the same report arterial findings are normal to the popliteal, biphasic, spectrally broadened in the infrageniculate cruz Continue wound care, Kodak wrap, elevate extremities. Patient Is Pending Transfer to [place]. (4) Anemia Qualifiers: Anemia type: unspecified type Qualified Code(s): D64.9 - Anemia, unspecified Is this a current diagnosis for this admission?: Yes Plan: Iron panel suggestive of iron deficiency anemia. No evidence of any active bleeding. A started on supplemental iron. Monitor H&H. (5) COPD (chronic obstructive pulmonary disease) Qualifiers: COPD type: chronic bronchitis Chronic bronchitis type: unspecified Qualified Code(s): J42 - Unspecified chronic bronchitis Is this a current diagnosis for this admission?: No Plan: Continue DuoNeb's, supplemental oxygen, PRN BiPAP, LABAs/[place]
--- NOTE | 2019-07-23 19:54 | PDOC PROGRESS REPORT ---
Subjective Progress Note for:: 07/23/19 Reason For Visit: She is sleeping but easily arousable. He denies any history of fever chills or rigors. No history of any chest pain or shortness of breath. He had a uneventful dialysis yesterday and we removed approximately a liter of fluid of him because he was having quite severe pedal edema with some weeping. Today's labs and medications were reviewed that shows creatinine down to 5.2 from yesterday 7.1 before dialysis. He made about 500 cc of urine output. His nevaeh isol was 4. Physical Exam Vital Signs: Temp Pulse Resp BP Pulse Ox 97.8 F 91 17 105/67 97 07/23/19 16:10 07/23/19 19:00 07/23/19 16:10 07/23/19 16:10 07/23/19 16:10 Intake & Output 07/22/19 07/23/19 07/24/19 06:59 06:59 06:59 Intake Total 840 940 506 Output Total 1505 1700 300 Balance -665 -760 206 Weight 125.8 kg 125.8 kg General appearance: PRESENT: no acute distress, disheveled Respiratory exam: PRESENT: clear to auscultation lui, decreased breath sounds. ABSENT: crackles Cardiovascular exam: PRESENT: +S1, +S2 GI/Abdominal exam: PRESENT: normal bowel sounds, soft. ABSENT: organomegaly, tenderness Extremities exam: PRESENT: +2 edema Neurological exam: PRESENT: alert, awake, oriented to person, oriented to place Psychiatric exam: PRESENT: depressed Skin exam: PRESENT: erythema - Lower extremities of chronic venous stasis, mottled, rash. ABSENT: cyanosis Results Laboratory Results: 07/23/19 04:07 07/23/19 04:07 07/23/19 07/23/19 04:07 04:07 WBC 7.8 RBC 3.06 L Hgb 8.9 L Hct 27.4 L MCV 90 MCH 29.1 MCHC 32.5 RDW 20.5 H Plt Count 163 Seg Neutrophils % 45.8 Retic Count (auto) 1.26 Sodium 140.2 Potassium 3.9 Chloride 103 Carbon Dioxide 32 H Anion Gap 5 BUN 16 Creatinine 5.25 H Est GFR ( Amer) 13 L Glucose 81 Calcium 8.3 L Magnesium 1.7 Iron 22.1 L TIBC 209 L % Saturation 11 Ferritin 32.00 Total Bilirubin 0.4 AST 49 Alkaline Phosphatase 125 Total Protein 6.8 Albumin 2.4 L Vitamin B12 980.0 H Folate > 20.00 07/11/19 15:20 NT-Pro-B Natriuret Pep 372 Impressions: Chest X-Ray 07/11/19 00:00 IMPRESSION: Bibasilar airspace disease. Foot X-Ray 07/11/19 15:38 IMPRESSION: No aggressive bony demineralization or periosteal new bone worrisome for osteomyelitis. Profound edema and skin thickening over both the right and left dorsal foot Renal Ultrasound 07/17/19 00:00 IMPRESSION: Normal study. Assessment & Plan - Diagnosis (1) CARMELA (acute kidney injury) Is this a current diagnosis for this admission?: Yes Plan: Patient is still nonoliguric and his renal numbers are better because he is post dialysis. See how his labs look like tomorrow and will make a decision whether he needs to go back on hemodialysis based on that. Currently he looks stable and there is no indications for any renal interventions at this moment. His blood pressure is still low and his cortisol came back at 4. Ideally I would like to have a cosyntropin test done on him before I start him on steroids. However in the lack of that availability I am starting him on Midodrin.Further testing of cortisol deficiency will have to be done with an web graphic designer as an outpatient. (2) Bilateral cellulitis of lower leg Is this a current diagnosis for this admission?: Yes Plan: Currently he does not show any obvious evidences of cellulitis. Obviously he was severely vanc toxic which has been discontinued along with Zosyn. Being managed by hospitalist. (3) Hypokalemia Is this a current diagnosis for this admission?: Yes Plan: Currently stable. (4) Stasis ulcer Qualifiers: Venous stasis ulcer site: ankle Varicose vein presence: unspecified whether present Laterality: left Is this a current diagnosis for this admission?: Yes Plan: Status quo. As per hospitalist. (5) Anemia Qualifiers: Anemia type: unspecified type Qualified Code(s): D64.9 - Anemia, unspecified Is this a current diagnosis for this admission?: Yes Plan: He has iron deficiency. Would recommend starting him on iron tablets. (6) Hypotension Plan: As mentioned previously. Has started him on Midodrin.Question [place]'s but duran t will have to be undertaken by her web graphic designer as an outpatient unless the hospitalist wants to get involved (7) RONIT (obstructive sleep apnea) Plan: As per hospitalist
[2019-07-23] MEDS: TRAZODONE HCL 50 MG TABLET PO SCH (21:47)
[2019-07-23] MEDS: ATORVASTATIN CALCIUM 40 MG TABLET PO SCH (21:47)
[2019-07-23] MEDS: MONTELUKAST SODIUM 10 MG TABLET PO SCH (21:48)
[2019-07-23] MEDS: MELATONIN 5 MG TABLET PO SCH (21:55)
[2019-07-24] MEDS: PREGABALIN 75 MG CAPSULE PO SCH ×2 (06:27→17:34)
[2019-07-24 06:42] LABS: HEMATOCRIT 30.1 % (37.9-51.0); HEMOGLOBIN 9.8 g/dL (13.5-17.0); MEAN CORPUSCULAR HEMOGLOBIN 29.5 pg (27.0-33.4); MEAN CORPUSCULAR HGB CONC 32.7 g/dL (32.0-36.0); MEAN CORPUSCULAR VOLUME 90 fl (80-97); PLATELET COUNT 181 10^3/uL (150-450); RED BLOOD COUNT 3.34 10^6/uL (4.35-5.55); RED CELL DISTRIBUTION WIDTH 20.4 % (11.5-14.0); WHITE BLOOD COUNT 8.4 10^3/uL (4.0-10.5)
[2019-07-24 07:03] LABS: ANION GAP 6 (5-19); BLOOD UREA NITROGEN 20 mg/dL (7-20); CALCIUM 8.7 mg/dL (8.4-10.2); CARBON DIOXIDE 33 mmol/L (22-30); CHLORIDE 103 mmol/L (98-107); GLUCOSE 85 mg/dL (75-110); POTASSIUM 4.2 mmol/L (3.6-5.0)
[2019-07-24] MEDS: MIDODRINE HCL 5 MG TABLET PO SCH ×3 (09:00→17:34)
[2019-07-24] MEDS ORDERED: HEPARIN SOD (PORCINE) 1,000 UNIT/ML 10 ML VIAL IV PRN (10:21)
[2019-07-24] MEDS: NYSTATIN TOPICAL POWDER 15 GM TP SCH (10:27)
[2019-07-24] MEDS: NICOTINE 21 MG/24 HR PATCH.TD24 TD SCH (10:27)
[2019-07-24] MEDS: FLUTICASONE/VILANTEROL 200-25 MCG/DOSE IH SCH (10:27)
[2019-07-24] MEDS: DOCUSATE SODIUM 100 MG CAPSULE PO SCH (10:27)
[2019-07-24] MEDS: APIXABAN 2.5 MG TABLET PO SCH ×2 (10:27→17:34)
[2019-07-24] MEDS: FOLIC ACID 1 MG TABLET PO SCH (10:27)
[2019-07-24] MEDS: LORATADINE 10 MG TABLET PO SCH (10:27)
[2019-07-24] MEDS: FUROSEMIDE INJ/PF 20 MG/2 ML SDV IV SCH ×2 (10:27→21:33)
[2019-07-24] MEDS: FLUTICASONE NASAL SPRAY 50 MCG/SPRY 120 SPRAY/16 GM NASL SCH (10:27)
[2019-07-24] MEDS: MULTIVIT-STRESS FORMULA/ZINC TABLET PO SCH (10:28)
[2019-07-24] MEDS: FAMOTIDINE 20 MG TABLET PO SCH ×2 (10:28→21:33)
[2019-07-24] MEDS: THIAMINE HCL 100 MG TABLET PO SCH (10:28)
[2019-07-24] MEDS: CHOLECALCIFEROL (D3) 1,000 UNIT (25 MCG) TABLET PO SCH (10:28)
[2019-07-24] MEDS: CYANOCOBALAMIN (VITAMIN B-12) 1,000 MCG TABLET PO SCH (10:28)
--- NOTE | 2019-07-24 11:53 | PDOC PROGRESS REPORT ---
Subjective Progress Note for:: 07/24/19 Reason For Visit: Patient was seen while undergoing dialysis. Is making good urine output but still renal functions are not much improved. Patient denies any history of chest pains or shortness of breath. No complaints of any fever or chills. Labs and medications were reviewed with the patient. Dialysis orders were reviewed with the treating dialysis nurse. Physical Exam Vital Signs: Temp Pulse Resp BP Pulse Ox 98.4 F 89 15 107/46 L 82 L 07/24/19 07:40 07/24/19 07:40 07/24/19 07:40 07/24/19 07:40 07/24/19 07:40 Intake & Output 07/23/19 07/24/19 07/25/19 06:59 06:59 06:59 Intake Total 940 1207 Output Total 1700 900 Balance -760 307 Weight 125.8 kg 124 kg General appearance: PRESENT: no acute distress Respiratory exam: PRESENT: clear to auscultation lui, decreased breath sounds. ABSENT: crackles Cardiovascular exam: PRESENT: +S1, +S2 GI/Abdominal exam: PRESENT: normal bowel sounds, soft. ABSENT: organomegaly, tenderness Extremities exam: PRESENT: +2 edema Neurological exam: PRESENT: alert, awake, oriented to person, oriented to place, oriented to time Psychiatric exam: PRESENT: appropriate affect Skin exam: PRESENT: erythema - Venous stasis in both lower extremities. ABSENT: cyanosis, mottled, rash Results Laboratory Results: 07/24/19 05:25 07/24/19 05:25 07/24/19 07/24/19 05:25 05:25 WBC 8.4 RBC 3.34 L Hgb 9.8 L Hct 30.1 L MCV 90 MCH 29.5 MCHC 32.7 RDW 20.4 H Plt Count 181 Sodium 142.3 Potassium 4.2 Chloride 103 Carbon Dioxide 33 H Anion Gap 6 BUN 20 Creatinine 6.04 H Est GFR ( Amer) 11 L Glucose 85 Calcium 8.7 Magnesium 1.8 07/11/19 15:20 NT-Pro-B Natriuret Pep 372 Impressions: Chest X-Ray 07/11/19 00:00 IMPRESSION: Bibasilar airspace disease. Foot X-Ray 07/11/19 15:38 IMPRESSION: No aggressive bony demineralization or periosteal new bone worrisome for osteomyelitis. Profound edema and skin thickening over both the right and left dorsal foot Renal Ultrasound 07/17/19 00:00 IMPRESSION: Normal study. Assessment & Plan - Diagnosis (1) CARMELA (acute kidney injury) Is this a current diagnosis for this admission?: Yes Plan: Patient is still nonoliguric. However renal numbers are not improving. Therefore decided to put him back on hemodialysis again. Continue to monitor on a regular basis.He is currently undergoing dialysis without any issues. Vital signs are stable especially since began him on low-dose of Midodrin. Dialysis is being supervised to ensure safe and smooth procedure. Plan to remove 500 cc of fluid. Dialysis orders were reviewed with the treating dialysis nurse. (2) Bilateral cellulitis of lower leg Is this a current diagnosis for this admission?: Yes Plan: Currently he does not show any obvious evidences of cellulitis. Obviously he was severely vanc toxic which has been discontinued along with Zosyn. Being managed by hospitalist. (3) Hypokalemia Is this a current diagnosis for this admission?: Yes Plan: Currently stable.He is on a 3K bath. Monitor. (4) Stasis ulcer Qualifiers: Venous stasis ulcer site: ankle Varicose vein presence: unspecified whether present Laterality: left Is this a current diagnosis for this admission?: Yes Plan: Status quo. As per hospitalist. (5) Anemia Qualifiers: Anemia type: unspecified type Qualified Code(s): D64.9 - Anemia, unspecified Is this a current diagnosis for this admission?: Yes Plan: He has iron deficiency. Would recommend starting him on iron tablets. (6) Hypotension Plan: Improving with initiation of Midodrin. He has low cortisol but I would like to confirm that he has [place]'s disease with a cosyntropin test before starting him on cortisol. (7) RONIT (obstructive sleep apnea) Plan: As per hospitalist
[2019-07-24] MEDS ORDERED: AMOXICILLIN TR/POT CLAVULANATE 500-125 MG TAB PO SCH (14:00)
[2019-07-24] MEDS ORDERED: TUBERCULIN,PURIF.PROT.DERIV. 5 TU/0.1 ML TEST 1 ML VIAL ID ONE (15:00)
[2019-07-24 16:36] LABS: A/G RATIO 0.4 (0.7-1.7); ALBUMIN 2 1.8 g/dL (2.9-4.4); ALPHA-2-GLOBULIN 2 0.8 g/dL (0.4-1.0); BETA GLOBULINS 1.1 g/dL (0.7-1.3); GAMMA GLOBULIN 2.6 g/dL (0.4-1.8); GLOBULIN TOTAL 4.8 g/dL (2.2-3.9); MONOCLONAL SPIKE Not Observed g/dL (Not Observ); PROTEIN TOTAL SERUM 6.6 g/dL (6.0-8.5)
[2019-07-24] MEDS: PREDNISONE 20 MG TABLET PO SCH (17:35)
--- NOTE | 2019-07-24 17:48 | PDOC PROGRESS REPORT ---
Subjective Progress Note for:: 07/24/19 Subjective:: 64 year old male, who is a poor historian but by medical record is confirmed to have a past medical history significant for Chronic respiratory failure with hypoxia (on home O2), lymphedema, opiate dependent chronic pain, COPD, CAD, DVT, PE, GERD, obesity, RONIT, alcohol and tobacco dependence who presented to the emergency department today with a complaint of worsening appearance of chronic wound to his left medial ankle; now with sloughing and purulent drainage, i ncreased pain, and erythematous border. Patient reports that he has been seen by Dr. Cruz in the past, however, it has been more than a month since he has had an appointment. He is unable to tell me with the current plan of therapy is. Evaluation in the emergency department revealed baseline anemia (hemoglobin 10.2), INR of 2.22 (home medication list shows Xarelto), hypokalemia (2.8) hyper magnesium (1.3), elevated lactic acid (3.8), negative urinalysis, and EKG demonstrating normal sinus rhythm. A right foot x-ray was negative for bony demineralization but does demonstrate profound edema of the skin over bilateral feet. 07/23/2019. No acute events overnight. Mild improvement of bilateral lower extremity cellulitis and edema, mild improvement of CARMELA. Denies any fever, chills, nausea, vomiting, diarrhea, constipation or any urinary symptoms. 07/24/2019. No acute events overnight. Patient complaining of mild improvement of lower extremity pain. Has been hypoxic overnight, been using CPAP. Denies any chest pain, nausea, vomiting, diarrhea, constipation or any urinary sympto ms. Reason For Visit: CELLULITIS Physical Exam Vital Signs: Temp Pulse Resp BP Pulse Ox 98.4 F 76 15 107/46 L 82 L 07/24/19 07:40 07/24/19 14:00 07/24/19 07:40 07/24/19 07:40 07/24/19 07:40 Intake & Output 07/23/19 07/24/19 07/25/19 06:59 06:59 06:59 Intake Total 940 1207 Output Total 1700 900 900 Balance -760 307 -900 Weight 125.8 kg 124 kg Results Laboratory Results: 07/24/19 05:25 07/24/19 05:25 07/24/19 07/24/19 05:25 05:25 WBC 8.4 RBC 3.34 L Hgb 9.8 L Hct 30.1 L MCV 90 MCH 29.5 MCHC 32.7 RDW 20.4 H Plt Count 181 Sodium 142.3 Potassium 4.2 Chloride 103 Carbon Dioxide 33 H Anion Gap 6 BUN 20 Creatinine 6.04 H Est GFR ( Amer) 11 L Glucose 85 Calcium 8.7 Magnesium 1.8 07/11/19 15:20 NT-Pro-B Natriuret Pep 372 Impressions: Chest X-Ray 07/11/19 00:00 IMPRESSION: Bibasilar airspace disease. Foot X-Ray 07/11/19 15:38 IMPRESSION: No aggressive bony demineralization or periosteal new bone worrisome for osteomyelitis. Profound edema and skin thickening over both the right and left dorsal foot Renal Ultrasound 07/17/19 00:00 IMPRESSION: Normal study. Assessment and Plan - Diagnosis (1) Acute and chronic respiratory failure with hypoxia Is this a current diagnosis for this admission?: Yes Plan: History of COPD on home O2. Likely worsening due to worsening kidney function and COPD exacerbation. Day 1 IV steroids Continue IV steroids, duo nebs, LABAs/Keagan, BiPAP. Monitor volume status and electrolytes. (2) CARMELA (acute kidney injury) Is this a current diagnosis for this admission?: Yes Plan: Nonoliguric. Urine output 900. Most likely secondary to vancomycin and Zosyn toxicity causing ATN 07/14/2019 vancomycin trough 56.3. Vancomycin was DC'd. 07/17/2019. Renal ultrasound WNL. Status post hemodialysis on 07/23/2019. Electrolytes WNL. Nephrology on board. Recommendations noted. Plan is for continued hemodialysis. (3) Bilateral cellulitis of lower leg Is this a current diagnosis for this admission?: Yes Plan: No obvious evidence of cellulitis. Initially was started on Vanco and Zosyn and was DC'd after supratherapeutic trough and CARMELA. Cultures negative. WBC WNL. (4) Stasis ulcer Qualifiers: Venous stasis ulcer site: ankle Varicose vein presence: unspecified whether present Laterality: left Is this a current diagnosis for this admission?: Yes Plan: Mild improvement. Status post post debridement of necrotic skin and dried exudate along the left malleolar by surgery. 06/15/2019. Venous Doppler negative for any DVT also in the same report arterial findings are normal to the popliteal, biphasic, spectrally broadened in the infrageniculate cruz Continue wound care, Kodak wrap, elevate extremities. Patient Is Pending Transfer to [place]. (5) Anemia Qualifiers: Anemia type: unspecified type Qualified Code(s): D64.9 - Anemia, unspecified Is this a current diagnosis for this admission?: Yes Plan: Iron panel suggestive of iron deficiency anemia. No evidence of any active bleeding. A started on supplemental iron. Monitor H&H. (6) COPD (chronic obstructive pulmonary disease) Qualifiers: COPD type: chronic bronchitis Chronic bronchitis type: unspecified Qualified Code(s): J42 - Unspecified chronic bronchitis Is this a current diagnosis for this admission?: No Plan: Continue DuoNeb's, supplemental oxygen, PRN BiPAP, LABAs/Keagan (8) GERD (gastroesophageal reflux disease) Qualifiers: Esophagitis presence: esophagitis presence not specified Qualified Code(s): K21.9 - Gastro-esophageal reflux disease without esophagitis Is this a current diagnosis for this admission?: Yes Plan: Continue PPIs. (9) History of DVT (deep vein thrombosis) Is this a current diagnosis for this admission?: Yes Plan: On chronic anticoagulation. Renally dosed (10) Obesity, Class III, BMI 40-49.9 (morbid obesity) Is this a current diagnosis for this admission?: Yes Plan: Diet and lifestyle modification recommended.
[2019-07-24] MEDS: IPRATROPIUM/ALBUTEROL 0.5-2.5 MG/3 ML AMPUL NEB SCH (19:16)
[2019-07-24] MEDS: SALMETEROL XINAFOATE DISKUS 50 MCG/1 DOSE 28 DOSE IH SCH (21:32)
[2019-07-24] MEDS: ATORVASTATIN CALCIUM 40 MG TABLET PO SCH (21:33)
[2019-07-24] MEDS: MELATONIN 5 MG TABLET PO SCH (21:34)
[2019-07-24] MEDS: MONTELUKAST SODIUM 10 MG TABLET PO SCH (21:34)
[2019-07-24] MEDS: TRAZODONE HCL 50 MG TABLET PO SCH (21:34)
[2019-07-25] MEDS: PREGABALIN 75 MG CAPSULE PO SCH ×2 (05:51→17:28)
[2019-07-25 06:41] LABS: ABSOLUTE LYMPHOCYTES (AUTO) 1.9 10^3/uL (0.5-4.7); ABSOLUTE MONOCYTES (AUTO) 0.5 10^3/uL (0.1-1.4); ABSOLUTE NEUT (AUTO) 4.8 10^3/uL (1.7-8.2); BASOPHILS % (AUTO) 0.6 % (0-2); HEMATOCRIT 28.9 % (37.9-51.0); HEMOGLOBIN 9.4 g/dL (13.5-17.0); LYMPHOCYTES % (AUTO) 26.3 % (13-45); MEAN CORPUSCULAR HGB CONC 32.6 g/dL (32.0-36.0); MEAN CORPUSCULAR VOLUME 89 fl (80-97); MONOCYTES % (AUTO) 6.8 % (3-13); PLATELET COUNT 172 10^3/uL (150-450); RED BLOOD COUNT 3.25 10^6/uL (4.35-5.55); RED CELL DISTRIBUTION WIDTH 20.2 % (11.5-14.0); SEGMENTED NEUTROPHILS % (AUTO) 66.3 % (42-78); TOTAL CELLS COUNTED % (AUTO) 100 %; WHITE BLOOD COUNT 7.2 10^3/uL (4.0-10.5)
[2019-07-25 07:10] LABS: ANION GAP 6 (5-19); BLOOD UREA NITROGEN 17 mg/dL (7-20); CALCIUM 8.5 mg/dL (8.4-10.2); CARBON DIOXIDE 32 mmol/L (22-30); CHLORIDE 103 mmol/L (98-107); GLUCOSE 111 mg/dL (75-110)
[2019-07-25] MEDS ORDERED: OXYCODONE-ACETAMINOPHEN 5-325 MG TABLET PO PRN (07:57)
[2019-07-25] MEDS ORDERED: DIAZEPAM 5 MG TABLET PO PRN (07:58)
[2019-07-25] MEDS: IPRATROPIUM/ALBUTEROL 0.5-2.5 MG/3 ML AMPUL NEB SCH ×3 (07:59→19:40)
[2019-07-25] MEDS: FUROSEMIDE INJ/PF 20 MG/2 ML SDV IV SCH ×2 (10:11→21:19)
[2019-07-25] MEDS: PREDNISONE 20 MG TABLET PO SCH (10:11)
[2019-07-25] MEDS: MULTIVIT-STRESS FORMULA/ZINC TABLET PO SCH (10:11)
[2019-07-25] MEDS: THIAMINE HCL 100 MG TABLET PO SCH (10:11)
[2019-07-25] MEDS: FAMOTIDINE 20 MG TABLET PO SCH ×2 (10:11→21:18)
[2019-07-25] MEDS: LORATADINE 10 MG TABLET PO SCH (10:12)
[2019-07-25] MEDS: FERROUS SULFATE 325 MG TABLET PO SCH (10:12)
[2019-07-25] MEDS: DOCUSATE SODIUM 100 MG CAPSULE PO SCH (10:12)
[2019-07-25] MEDS: FLUTICASONE/VILANTEROL 200-25 MCG/DOSE IH SCH (10:12)
[2019-07-25] MEDS: CYANOCOBALAMIN (VITAMIN B-12) 1,000 MCG TABLET PO SCH (10:12)
[2019-07-25] MEDS: CHOLECALCIFEROL (D3) 1,000 UNIT (25 MCG) TABLET PO SCH (10:12)
[2019-07-25] MEDS: APIXABAN 2.5 MG TABLET PO SCH ×2 (10:12→17:29)
[2019-07-25] MEDS: FOLIC ACID 1 MG TABLET PO SCH (10:12)
[2019-07-25] MEDS: SALMETEROL XINAFOATE DISKUS 50 MCG/1 DOSE 28 DOSE IH SCH ×2 (10:13→21:32)
[2019-07-25] MEDS: TIOTROPIUM BROMIDE DPI 5 CAP/KIT (18 MCG/CAP) IH SCH (10:13)
[2019-07-25] MEDS: NICOTINE 21 MG/24 HR PATCH.TD24 TD SCH (10:13)
[2019-07-25] MEDS: MIDODRINE HCL 5 MG TABLET PO SCH ×3 (10:13→17:28)
[2019-07-25 11:26] LABS: INTERNATIONAL RATION (INR) 1.29; PROTHROMBIN TIME 16.2 SEC (11.4-15.4)
[2019-07-25 11:27] LABS: PARTIAL THROMBOPLASTIN TIME 37.1 SEC (23.5-35.8)
[2019-07-25] MEDS ORDERED: FENTANYL CITRATE INJ/PF 100 MCG/2 ML AMPUL ONE (12:18)
[2019-07-25] MEDS ORDERED: MIDAZOLAM 2 MG/2 ML INJ ONE (12:18)
[2019-07-25] MEDS ORDERED: BACITRACIN INJ 50,000 UNIT VIAL ONE (12:19)
[2019-07-25] MEDS ORDERED: LIDOCAINE 0.5% INJ-PF (5 MG/ML) 50 ML SDV ONE (12:19)
--- NOTE | 2019-07-25 15:52 | RADIOLOGY REPORT (SQ) ---
EXAM DESCRIPTION: KUB/ABDOMEN (SINGLE VIEW) COMPLETED DATE/TIME: 07/25/2019 3:34 pm REASON FOR STUDY: Trialysis location verification COMPARISON: CT abdomen pelvis 06/28/2018 KUB 06/29/2017, 09/12/2014, 09/11/2014 NUMBER OF VIEWS: One view. TECHNIQUE: Supine radiographic image of the abdomen acquired. LIMITATIONS: None. FINDINGS: BOWEL GAS PATTERN: Normal bowel gas pattern. No dilated loops. CALCIFICATIONS: No suspicious calcifications. SOFT TISSUES: No gross mass or suggestion of organomegaly. HARDWARE: Right-sided femoral dialysis catheter is present with the tip overlying the right sacrum. Surgical clips at the GE junction, inferior vena cava filter, lumbar spine fusion hardware, laparosco pic ventral hernia repair tacks are all similar compared to previous KUB exams. Left femoral vein st ent is unchanged from CT exam 06/28/2018. BONES: No acute fracture. No worrisome bone lesions. OTHER: No other significant finding. IMPRESSION: Right femoral venous dialysis catheter tip over the right sacrum. TECHNICAL DOCUMENTATION: JOB ID: [id number] [email or web address]- All Rights Reserved Reading location - IP/workstation name: [email or web address]
--- NOTE | 2019-07-25 18:17 | PDOC PROGRESS REPORT ---
Subjective Progress Note for:: 07/25/19 Subjective:: 64 year old male, who is a poor historian but by medical record is confirmed to have a past medical history significant for Chronic respiratory failure with hypoxia (on home O2), lymphedema, opiate dependent chronic pain, COPD, CAD, DVT, PE, GERD, obesity, RONIT, alcohol and tobacco dependence who presented to the emergency department today with a complaint of worsening appearance of chronic wound to his left medial ankle; now with sloughing and purulent drainage, i ncreased pain, and erythematous border. Patient reports that he has been seen by Dr. Cruz in the past, however, it has been more than a month since he has had an appointment. He is unable to tell me with the current plan of therapy is. Evaluation in the emergency department revealed baseline anemia (hemoglobin 10.2), INR of 2.22 (home medication list shows Xarelto), hypokalemia (2.8) hyper magnesium (1.3), elevated lactic acid (3.8), negative urinalysis, and EKG demonstrating normal sinus rhythm. A right foot x-ray was negative for bony demineralization but does demonstrate profound edema of the skin over bilateral feet. 07/23/2019. No acute events overnight. Mild improvement of bilateral lower extremity cellulitis and edema, mild improvement of CARMELA. Denies any fever, chills, nausea, vomiting, diarrhea, constipation or any urinary symptoms. 07/24/2019. No acute events overnight. Patient complaining of mild improvement of lower extremity pain. Has been hypoxic overnight, been using CPAP. Denies any chest pain, nausea, vomiting, diarrhea, constipation or any urinary sympto ms. 07/25/2019. No acute events overnight. Still complaining of bilateral lower extremity pain however compared to admission much improved. CPAP overnight. Denies any fever, chills, nausea, vomiting, diarrhea, constipation or any urinary symptoms. Reason For Visit: CELLULITIS Physical Exam Vital Signs: Temp Pulse Resp BP Pulse Ox 98.6 F 69 20 119/52 L 92 07/25/19 00:00 07/25/19 14:13 07/25/19 14:13 07/25/19 00:00 07/25/19 14:13 Intake & Output 07/24/19 07/25/19 07/26/19 06:59 06:59 06:59 Intake Total 1207 942 Output Total 900 2600 Balance 307 -1658 Weight 124 kg 124 kg Results Laboratory Results: 07/25/19 05:38 07/25/19 05:38 07/23/19 07/25/19 07/25/19 04:07 05:38 05:38 WBC 7.2 RBC 3.25 L Hgb 9.4 L Hct 28.9 L MCV 89 MCH 29.0 MCHC 32.6 RDW 20.2 H Plt Count 172 Seg Neutrophils % 66.3 Sodium 141.2 Potassium 5.0 Chloride 103 Carbon Dioxide 32 H Anion Gap 6 BUN 17 Creatinine 5.30 H Est GFR ( Amer) 13 L Glucose 111 H Calcium 8.5 Total Protein 6.6 Albumin 1.8 L 07/11/19 15:20 NT-Pro-B Natriuret Pep 372 Impressions: Chest X-Ray 07/11/19 00:00 IMPRESSION: Bibasilar airspace disease. Foot X-Ray 07/11/19 15:38 IMPRESSION: No aggressive bony demineralization or periosteal new bone wor risome for osteomyelitis. Profound edema and skin thickening over both the right and left dorsal foot Renal Ultrasound 07/17/19 00:00 IMPRESSION: Normal study. KUB X-Ray 07/25/19 00:00 IMPRESSION: Right femoral venous dialysis catheter tip over the right sacrum. Assessment and Plan - Diagnosis (1) Acute and chronic respiratory failure with hypoxia Is this a current diagnosis for this admission?: Yes Plan: History of COPD on home O2. Likely worsening due to worsening kidney function and COPD exacerbation. Day 2 IV steroids Continue IV steroids, duo nebs, LABAs/Keagan, BiPAP. Monitor volume status and electrolytes. (2) CARMELA (acute kidney injury) Is this a current diagnosis for this admission?: Yes Plan: Nonoliguric. Urine output 900. No significant improvement. Most likely secondary to vancomycin and Zosyn toxicity causing ATN 07/14/2019 vancomycin trough 56.3. Vancomycin was DC'd. 07/17/2019. Renal ultrasound WNL. Status post hemodialysis on 07/23/2019. Electrolytes WNL. 07/25/2019 status post permacath placement. Will be sent to rehab where he will continue to receive his hemodialysis. Nephrology on board. Recommendations noted. Plan is for continued hemodialysis. (3) Bilateral cellulitis of lower leg Is this a current diagnosis for this admission?: Yes Plan: No obvious evidence of cellulitis. Initially was started on Vanco and Zosyn and was DC'd after supratherapeutic trough and CARMELA. Cultures negative. WBC WNL. (4) Stasis ulcer Qualifiers: Venous stasis ulcer site: ankle Varicose vein presence: unspecified whether present Laterality: left Is this a current diagnosis for this admission?: Yes Plan: Mild improvement. Status post post debridement of necrotic skin and dried exudate along the left malleolar by surgery. 06/15/2019. Venous Doppler negative for any DVT also in the same report arterial findings are normal to the popliteal, biphasic, spectrally broadened in the infrageniculate cruz Continue wound care, Kodak wrap, elevate extremities. Patient Is Pending Transfer to [place]. (5) Anemia Qualifiers: Anemia type: unspecified type Qualified Code(s): D64.9 - Anemia, unspecified Is this a current diagnosis for this admission?: Yes Plan: Iron panel suggestive of iron deficiency anemia. No evidence of any active bleeding. Guaiac negative. History of chronic heavy alcohol abuse which could have contributed to his anemia. Denies any hematemesis, hemoptysis, melena, hematochezia, nosebleeds or hematuria. As per patient he has had upper and lower endoscopy about 3 years ago as outpatient and he was told they were negative. Colonoscopy done on 01/30/2018 here at [facility] showed colonic polyp, diverticulosis and internal hemorrhoids. Continue supplemental ferrous sulfate. Daily H&H. Supportive transfusions. (6) COPD (chronic obstructive pulmonary disease) Qualifiers: COPD type: chronic bronchitis Chronic bronchitis type: unspecified Qualified Code(s): J42 - Unspecified chronic bronchitis Is this a current diagnosis for this admission?: No Plan: Continue DuoNeb's, supplemental oxygen, PRN BiPAP, LABAs/Keagan (7) GERD (gastroesophageal reflux disease) Qualifiers: Esophagitis presence: esophagitis presence not specified Qualified Code(s): K21.9 - Gastro-esophageal reflux disease without esophagitis Is this a current diagnosis for this admission?: Yes Plan: Continue PPIs. (8) History of DVT (deep vein thrombosis) Is this a current diagnosis for this admission?: Yes Plan: On chronic anticoagulation. Renally dosed (9) Obesity, Class III, BMI 40-49.9 (morbid obesity) Is this a current diagnosis for this admission?: Yes Plan: Diet and lifestyle modification recommended.
--- NOTE | 2019-07-25 18:39 | PDOC PROGRESS REPORT ---
Subjective Progress Note for:: 07/25/19 Subjective:: Patient this afternoon sitting on his bed ready to eat dinner. He appears fine and is feeling fine. Earlier today when patient is about to be brought in for us PermCath placement the patient appeared confused and does not appear well so Dr. Cruz canceled the procedure. According to the nurse after a while the patient reverted back to his normal state just like I am seeing him currently. He does not really have any complaints. He continues to require hemodialysis. He still makes some urine of about 900 mL for 24 hours. He is still not arrange for an outpatient [facility] dialysis unit and his PPD was only placed yesterday. Reason For Visit: CELLULITIS Physical Exam Vital Signs: Temp Pulse Resp BP Pulse Ox 98.6 F 69 20 119/52 L 92 07/25/19 00:00 07/25/19 14:13 07/25/19 14:13 07/25/19 00:00 07/25/19 14:13 Intake & Output 07/24/19 07/25/19 07/26/19 06:59 06:59 06:59 Intake Total 1207 942 Output Total 900 2600 Balance 307 -1658 Weight 124 kg 124 kg Exam: General appearance: PRESENT: no acute distress, cooperative, well-developed, well-nourished Head exam: PRESENT: atraumatic, normocephalic Eye exam: PRESENT: conjunctiva slightly pale, PERRLA. ABSENT: scleral icterus Neck exam: ABSENT: JVD Respiratory exam: PRESENT: Diminished breath sounds. ABSENT: crackles, rales, rhonchi, unlabored, wheezes Cardiovascular exam: PRESENT: Regular rate rhythm -+S1, +S2. ABSENT: diastolic murmur, systolic murmur GI/Abdominal exam: PRESENT: normal bowel sounds, soft. ABSENT: guarding, mass, tenderness Extremities exam: Grade 2 bilateral lower extremity chronic pitting edema; left ankle still covered with dressing. Neurological exam: PRESENT: alert, awake, oriented to person, place and time. Skin exam: PRESENT: dry, warm, Cardiovascular exam: PRESENT: +S1, +S2 GI/Abdominal exam: PRESENT: normal bowel sounds, soft. ABSENT: organomegaly, tenderness Results Laboratory Results: 07/25/19 05:38 07/25/19 05:38 07/23/19 07/25/19 07/25/19 04:07 05:38 05:38 WBC 7.2 RBC 3.25 L Hgb 9.4 L Hct 28.9 L MCV 89 MCH 29.0 MCHC 32.6 RDW 20.2 H Plt Count 172 Seg Neutrophils % 66.3 Sodium 141.2 Potassium 5.0 Chloride 103 Carbon Dioxide 32 H Anion Gap 6 BUN 17 Creatinine 5.30 H Est GFR ( Amer) 13 L Glucose 111 H Calcium 8.5 Total Protein 6.6 Albumin 1.8 L 07/11/19 15:20 NT-Pro-B Natriuret Pep 372 Impressions: Chest X-Ray 07/11/19 00:00 IMPRESSION: Bibasilar airspace disease. Foot X-Ray 07/11/19 15:38 IMPRESSION: No aggressive bony demineralization or periosteal new bone worrisom e for osteomyelitis. Profound edema and skin thickening over both the right and left dorsal foot Renal Ultrasound 07/17/19 00:00 IMPRESSION: Normal study. KUB X-Ray 07/25/19 00:00 IMPRESSION: Right femoral venous dialysis catheter tip over the right sacrum. Assessment & Plan - Diagnosis (1) CARMELA (acute kidney injury) Is this a current diagnosis for this admission?: Yes Plan: Patient is still nonoliguric, however his kidney function continues to significantly worsen every single day. This is due to ATN due to vancomycin toxicity and the combination of IV vancomycin and Zosyn. We will plan to do dialysis treatment tomorrow. Patient's PermCath is rescheduled for Monday by Dr. Cruz so he will need to stay here in the hospital until then. Still awaiting for [facility] admissions to accept patient. (2) Anemia Qualifiers: Anemia type: iron deficiency Is this a current diagnosis for this admission?: Yes Plan: Continue oral ferrous sulfate. (3) Bilateral cellulitis of lower leg Is this a current diagnosis for this admission?: Yes (4) Stasis ulcer Qualifiers: Venous stasis ulcer site: ankle Varicose vein presence: unspecified whether present Laterality: left Is this a current diagnosis for this admission?: Yes (5) Alcohol dependence Is this a current diagnosis for this admission?: Yes (6) RONIT (obstructive sleep apnea) Is this a current diagnosis for this admission?: Yes - Time Time with patient: 15-25 minutes
[2019-07-25] MEDS: MONTELUKAST SODIUM 10 MG TABLET PO SCH (21:18)
[2019-07-25] MEDS: ATORVASTATIN CALCIUM 40 MG TABLET PO SCH (21:18)
[2019-07-25] MEDS: TRAZODONE HCL 50 MG TABLET PO SCH (21:18)
[2019-07-25] MEDS: MELATONIN 5 MG TABLET PO SCH (21:19)
[2019-07-25] MEDS: ACETAMINOPHEN 325 MG TABLET PO PRN (21:28)
[2019-07-26] MEDS ORDERED: HEPARIN SOD (PORCINE) 1,000 UNIT/ML 10 ML VIAL IV PRN (05:00)
[2019-07-26] MEDS ORDERED: NORMAL SALINE 1000 ML 1,000 ML IV PRN (05:00)
[2019-07-26] MEDS: PREGABALIN 75 MG CAPSULE PO SCH ×2 (06:23→17:01)
[2019-07-26] MEDS: IPRATROPIUM/ALBUTEROL 0.5-2.5 MG/3 ML AMPUL NEB SCH ×3 (07:40→20:21)
[2019-07-26 07:46] LABS: ABSOLUTE BASOPHILS # (AUTO) 0.1 10^3/uL (0.0-0.2); ABSOLUTE LYMPHOCYTES (AUTO) 2.1 10^3/uL (0.5-4.7); ABSOLUTE MONOCYTES (AUTO) 0.9 10^3/uL (0.1-1.4); ABSOLUTE NEUT (AUTO) 4.9 10^3/uL (1.7-8.2); BASOPHILS % (AUTO) 0.7 % (0-2); HEMATOCRIT 29.1 % (37.9-51.0); HEMOGLOBIN 9.4 g/dL (13.5-17.0); LYMPHOCYTES % (AUTO) 26.4 % (13-45); MEAN CORPUSCULAR HEMOGLOBIN 28.7 pg (27.0-33.4); MEAN CORPUSCULAR HGB CONC 32.3 g/dL (32.0-36.0); MEAN CORPUSCULAR VOLUME 89 fl (80-97); PLATELET COUNT 180 10^3/uL (150-450); RED BLOOD COUNT 3.27 10^6/uL (4.35-5.55); RED CELL DISTRIBUTION WIDTH 20.1 % (11.5-14.0); SEGMENTED NEUTROPHILS % (AUTO) 61.9 % (42-78); TOTAL CELLS COUNTED % (AUTO) 100 %; WHITE BLOOD COUNT 7.9 10^3/uL (4.0-10.5)
[2019-07-26 08:09] LABS: BLOOD UREA NITROGEN 26 mg/dL (7-20); CALCIUM 8.8 mg/dL (8.4-10.2); CHLORIDE 101 mmol/L (98-107); GLUCOSE 141 mg/dL (75-110); POTASSIUM 4.9 mmol/L (3.6-5.0)
[2019-07-26 08:11] LABS: ANION GAP 11 (5-19); CARBON DIOXIDE 29 mmol/L (22-30)
--- NOTE | 2019-07-26 08:52 | PDOC PROGRESS REPORT ---
Subjective Progress Note for:: 07/26/19 Subjective:: I am seeing the patient during dialysis this morning. He is doing fine and has no complaints. He is tolerating dialysis without any problems. His blood pressure is a little bit on the low side so we will be monitoring him and adjust ultrafiltration as necessary. Reason For Visit: CELLULITIS Physical Exam Vital Signs: Temp Pulse Resp BP Pulse Ox 98.4 F 74 15 120/67 95 07/26/19 03:34 07/26/19 07:40 07/26/19 07:40 07/26/19 03:34 07/26/19 07:40 Intake & Output 07/25/19 07/26/19 07/27/19 06:59 06:59 06:59 Intake Total 942 1660 Output Total 2600 600 Balance -1658 1060 Weight 124 kg 124.6 kg Vitals currently during dialysis: Blood pressure 109/63, heart rate of 82, blood flow of 320 mL/min and dialysate flow of 600 mL/min. Exam: General appearance: PRESENT: no acute distress, cooperative, well-developed, well-nourished Head exam: PRESENT: atraumatic, normocephalic Eye exam: PRESENT: conjunctiva slightly pale, PERRLA. ABSENT: scleral icterus Neck exam: ABSENT: JVD Respiratory exam: PRESENT: Diminished breath sounds. ABSENT: crackles, rales, rhonchi, unlabored, wheezes Cardiovascular exam: PRESENT: Regular rate rhythm -+S1, +S2. ABSENT: diastolic murmur, systolic murmur GI/Abdominal exam: PRESENT: normal bowel sounds, soft. ABSENT: guarding, mass, tenderness Extremities exam: Grade 2 bilateral lower extremity pitting edema, left ankle and foot covered with dressing Neurological exam: PRESENT: alert, awake, oriented to person, place and time. Skin exam: PRESENT: dry, warm, Cardiovascular exam: PRESENT: +S1, +S2 GI/Abdominal exam: PRESENT: normal bowel sounds, soft. ABSENT: organomegaly, tenderness Results Laboratory Results: 07/26/19 06:36 07/26/19 06:36 Sodium 140.6 Potassium 4.9 Chloride 101 Carbon Dioxide 29 Anion Gap 11 BUN 26 H Creatinine 6.43 H Est GFR ( Amer) 11 L Glucose 141 H Calcium 8.8 07/11/19 15:20 NT-Pro-B Natriuret Pep 372 Impressions: Chest X-Ray 07/11/19 00:00 IMPRESSION: Bibasilar airspace disease. Foot X-Ray 07/11/19 15:38 IMPRESSION: No aggressive bony demineralization or periosteal new bone worrisome for osteomyelitis. Profound edema and skin thickening over both the right and left dorsal foot Renal Ultrasound 07/17/19 00:00 IMPRESSION: Normal study. KUB X-Ray 07/25/19 00:00 IMPRESSION: Right femoral venous dialysis catheter tip over the right sacrum. Assessment & Plan - Diagnosis (1) CARMELA (acute kidney injury) Is this a current diagnosis for this admission?: Yes Plan: Patient is still nonoliguric, however his kidney function continues to significantly worsen every single day. This is due to ATN due to vancomycin toxicity and the combination of IV vancomycin and Zosyn. We will do dialysis today for 3 hours, using the patient's trialysis catheter, with 2 potassium bath, blood flow rate of 350 mL per minute, dialysate flow rate of 600 mL per minute, ultrafiltration 1 L as tolerated, no heparin and no Procrit. Patient will be monitored throughout dialysis treatment. Discussed treatment plan with her dialysis nurse Raysa. Patient's PermCath is rescheduled for Monday by Dr. Cruz so he will need to stay here in the hospital until then. Still awaiting for [facility] admissions to accept patient. (2) Anemia Qualifiers: Anemia type: iron deficiency Is this a current diagnosis for this admission?: Yes Plan: Continue oral ferrous sulfate. (3) Bilateral cellulitis of lower leg Is this a current diagnosis for this admission?: Yes (4) Stasis ulcer Qualifiers: Venous stasis ulcer site: ankle Varicose vein presence: unspecified whether present Laterality: left Is this a current diagnosis for this admission?: Yes (5) Alcohol dependence Is this a current diagnosis for this admission?: Yes (6) RONIT (obstructive sleep apnea) Is this a current diagnosis for this admission?: Yes - Notes Notes: Discussed plan with Dr. Martinez yesterday. - Time Time with patient: 15-25 minutes
[2019-07-26 09:00] LABS: POIKILOCYTOSIS 2+
[2019-07-26 09:01] LABS: HOWELL-JOLLY BODIES PRESENT; PLATELET COMMENT ADEQUATE; PLATELET LARGE PRESENT; TARGET CELLS 2+
[2019-07-26] MEDS: APIXABAN 2.5 MG TABLET PO SCH ×2 (10:26→17:00)
[2019-07-26] MEDS: DOCUSATE SODIUM 100 MG CAPSULE PO SCH (10:26)
[2019-07-26] MEDS: NICOTINE 21 MG/24 HR PATCH.TD24 TD SCH (11:51)
[2019-07-26] MEDS: CHOLECALCIFEROL (D3) 1,000 UNIT (25 MCG) TABLET PO SCH (11:52)
[2019-07-26] MEDS: CYANOCOBALAMIN (VITAMIN B-12) 1,000 MCG TABLET PO SCH (11:53)
[2019-07-26] MEDS: LORATADINE 10 MG TABLET PO SCH (11:53)
[2019-07-26] MEDS: PREDNISONE 20 MG TABLET PO SCH (11:53)
[2019-07-26] MEDS: FOLIC ACID 1 MG TABLET PO SCH (11:53)
[2019-07-26] MEDS: FUROSEMIDE INJ/PF 20 MG/2 ML SDV IV SCH ×2 (11:54→21:44)
[2019-07-26] MEDS: THIAMINE HCL 100 MG TABLET PO SCH (11:54)
[2019-07-26] MEDS: MULTIVIT-STRESS FORMULA/ZINC TABLET PO SCH (11:54)
[2019-07-26] MEDS: FAMOTIDINE 20 MG TABLET PO SCH ×2 (11:54→21:44)
[2019-07-26] MEDS: FERROUS SULFATE 325 MG TABLET PO SCH (11:54)
[2019-07-26] MEDS: MIDODRINE HCL 5 MG TABLET PO SCH ×3 (11:54→17:02)
[2019-07-26] MEDS: SALMETEROL XINAFOATE DISKUS 50 MCG/1 DOSE 28 DOSE IH SCH ×2 (11:55→21:45)
[2019-07-26] MEDS: FLUTICASONE/VILANTEROL 200-25 MCG/DOSE IH SCH (11:55)
[2019-07-26] MEDS: ACETAMINOPHEN 325 MG TABLET PO PRN ×2 (11:55→17:49)
[2019-07-26] MEDS: TIOTROPIUM BROMIDE DPI 5 CAP/KIT (18 MCG/CAP) IH SCH (11:56)
--- NOTE | 2019-07-26 18:16 | PDOC PROGRESS REPORT ---
Subjective Progress Note for:: 07/26/19 Subjective:: 64 year old male, who is a poor historian but by medical record is confirmed to have a past medical history significant for Chronic respiratory failure with hypoxia (on home O2), lymphedema, opiate dependent chronic pain, COPD, CAD, DVT, PE, GERD, obesity, RONIT, alcohol and tobacco dependence who presented to the emergency department today with a complaint of worsening appearance of chronic wound to his left medial ankle; now with sloughing and purulent drainage, i ncreased pain, and erythematous border. Patient reports that he has been seen by Dr. Cruz in the past, however, it has been more than a month since he has had an appointment. He is unable to tell me with the current plan of therapy is. Evaluation in the emergency department revealed baseline anemia (hemoglobin 10.2), INR of 2.22 (home medication list shows Xarelto), hypokalemia (2.8) hyper magnesium (1.3), elevated lactic acid (3.8), negative urinalysis, and EKG demonstrating normal sinus rhythm. A right foot x-ray was negative for bony demineralization but does demonstrate profound edema of the skin over bilateral feet. 07/23/2019. No acute events overnight. Mild improvement of bilateral lower extremity cellulitis and edema, mild improvement of CARMELA. Denies any fever, chills, nausea, vomiting, diarrhea, constipation or any urinary symptoms. 07/24/2019. No acute events overnight. Patient complaining of mild improvement of lower extremity pain. Has been hypoxic overnight, been using CPAP. Denies any chest pain, nausea, vomiting, diarrhea, constipation or any urinary sympto ms. 07/25/2019. No acute events overnight. Still complaining of bilateral lower extremity pain however compared to admission much improved. CPAP overnight. Denies any fever, chills, nausea, vomiting, diarrhea, constipation or any urinary symptoms. 07/26/2019. Saw patient after receiving hemodialysis, denies any fever, chills, nausea, vomiting, diarrhea, constipation or any urinary to the. Patient gets confused at times over my encounter patient alert oriented x3. Reason For Visit: CELLULITIS Physical Exam Vital Signs: Temp Pulse Resp BP Pulse Ox 98.3 F 84 15 115/59 L 92 07/26/19 15:23 07/26/19 15:23 07/26/19 15:23 07/26/19 15:23 07/26/19 15:23 Intake & Output 07/25/19 07/26/19 07/27/19 06:59 06:59 06:59 Intake Total 942 1660 360 Output Total 2600 600 1200 Balance -1658 1060 -840 Weight 124 kg 124.6 kg General appearance: PRESENT: no acute distress, morbidly obese, well-developed, well-nourished Head exam: PRESENT: atraumatic, normocephalic Respiratory exam: PRESENT: clear to auscultation lui. ABSENT: rales, rhonchi, wheezes Cardiovascular exam: PRESENT: RRR. ABSENT: diastolic murmur, rubs, systolic murmur Pulses: PRESENT: normal dorsalis pedis pul Extremities exam: PRESENT: +2 edema Neurological exam: PRESENT: alert, awake, oriented to person, oriented to place, oriented to time, oriented to situation, CN II-XII grossly intact. ABSENT: motor sensory deficit Results Laboratory Results: 07/26/19 06:36 07/26/19 06:36 07/26/19 07/26/19 06:36 06:36 WBC 7.9 RBC 3.27 L Hgb 9.4 L Hct 29.1 L MCV 89 MCH 28.7 MCHC 32.3 RDW 20.1 H Plt Count 180 Seg Neutrophils % 61.9 Sodium 140.6 Potassium 4.9 Chloride 101 Carbon Dioxide 29 Anion Gap 11 BUN 26 H Creatinine 6.43 H Est GFR ( Amer) 11 L Glucose 141 H Calcium 8.8 07/11/19 15:20 NT-Pro-B Natriuret Pep 372 Impressions: Chest X-Ray 07/11/19 00:00 IMPRESSION: Bibasilar airspace disease. Foot X-Ray 07/11/19 15:38 IMPRESSION: No aggressive bony demineralization or periosteal new bone worrisome for osteomyelitis. Profound edema and skin thickening over both the right and left dorsal foot Renal Ultrasound 07/17/19 00:00 IMPRESSION: Normal study. KUB X-Ray 07/25/19 00:00 IMPRESSION: Right femoral venous dialysis catheter tip over the right sacrum. Assessment and Plan - Diagnosis (1) Acute and chronic respiratory failure with hypoxia Is this a current diagnosis for this admission?: Yes Plan: History of COPD on home O2. Likely worsening due to worsening kidney function and COPD exacerbation. Day 3 IV steroids Continue IV steroids, duo nebs, LABAs/Keagan, BiPAP. Monitor volume status and electrolytes. (2) CARMELA (acute kidney injury) Is this a current diagnosis for this admission?: Yes Plan: Nonoliguric. Urine output 1400. No significant improvement. Most likely secondary to vancomycin and Zosyn toxicity causing ATN 07/14/2019 vancomycin trough 56.3. Vancomycin was DC'd. 07/17/2019. Renal ultrasound WNL. Status post hemodialysis on 07/23/2019. Electrolytes WNL. 07/25/2019. PermCath was attempted however it was canceled due to patient being altered. It is rescheduled for Monday by Dr. Cruz. Nephrology on board. Recommendations noted. Plan is for continued hemodialysis. (3) Bilateral cellulitis of lower leg Is this a current diagnosis for this admission?: Yes Plan: No obvious evidence of cellulitis. Initially was started on Vanco and Zosyn and was DC'd after supratherapeutic trough and CARMELA. Cultures negative. WBC WNL. (4) Stasis ulcer Qualifiers: Venous stasis ulcer site: ankle Varicose vein presence: unspecified whether present Laterality: left Is this a current diagnosis for this admission?: Yes Plan: Mild improvement. Status post post debridement of necrotic skin and dried exudate along the left malleolar by surgery. 06/15/2019. Venous Doppler negative for any DVT also in the same report arterial findings are normal to the popliteal, biphasic, spectrally broadened in the infrageniculate cruz Continue wound care, Kodak wrap, elevate extremities. Patient Is Pending Transfer to [place]. (5) Anemia Qualifiers: Anemia type: iron deficiency Is this a current diagnosis for this admission?: Yes Plan: Iron panel suggestive of iron deficiency anemia. No evidence of any active bleeding. Guaiac negative. History of chronic heavy alcohol abuse which could have contributed to his anemia. Denies any hematemesis, hemoptysis, melena, hematochezia, nosebleeds or he maturia. As per patient he has had upper and lower endoscopy about 3 years ago as outpatient and he was told they were negative. Colonoscopy done on 01/30/2018 here at [facility] showed colonic polyp, diverticulosis and internal hemorrhoids. Continue supplemental ferrous sulfate. Daily H&H. Supportive transfusions. (6) COPD (chronic obstructive pulmonary disease) Qualifiers: COPD type: chronic bronchitis Chronic bronchitis type: unspecified Qualified Code(s): J42 - Unspecified chronic bronchitis Is this a current diagnosis for this admission?: No Plan: Continue DuoNeb's, supplemental oxygen, PRN BiPAP, LABAs/Keagan (7) GERD (gastroesophageal reflux disease) Qualifiers: Esophagitis presence: esophagitis presence not specified Qualified Code(s): K21.9 - Gastro-esophageal reflux disease without esophagitis Is this a current diagnosis for this admission?: Yes Plan: Continue PPIs. (8) History of DVT (deep vein thrombosis) Is this a current diagnosis for this admission?: Yes Plan: On chronic anticoagulation. Renally dosed (9) Obesity, Class III, BMI 40-49.9 (morbid obesity) Is this a current diagnosis for this admission?: Yes Plan: Diet and lifestyle modification recommended.
[2019-07-26] MEDS: MELATONIN 5 MG TABLET PO SCH (21:44)
[2019-07-26] MEDS: TRAZODONE HCL 50 MG TABLET PO SCH (21:44)
[2019-07-26] MEDS: ATORVASTATIN CALCIUM 40 MG TABLET PO SCH (21:44)
[2019-07-26] MEDS: MONTELUKAST SODIUM 10 MG TABLET PO SCH (21:45)
[2019-07-27 05:08] LABS: ABSOLUTE LYMPHOCYTES (AUTO) 1.9 10^3/uL (0.5-4.7); ABSOLUTE MONOCYTES (AUTO) 0.6 10^3/uL (0.1-1.4); ABSOLUTE NEUT (AUTO) 6.3 10^3/uL (1.7-8.2); HEMATOCRIT 28.2 % (37.9-51.0); HEMOGLOBIN 9.2 g/dL (13.5-17.0); LYMPHOCYTES % (AUTO) 21.6 % (13-45); MEAN CORPUSCULAR HGB CONC 32.7 g/dL (32.0-36.0); MEAN CORPUSCULAR VOLUME 89 fl (80-97); MONOCYTES % (AUTO) 7.1 % (3-13); PLATELET COUNT 184 10^3/uL (150-450); RED BLOOD COUNT 3.18 10^6/uL (4.35-5.55); RED CELL DISTRIBUTION WIDTH 20.1 % (11.5-14.0); SEGMENTED NEUTROPHILS % (AUTO) 71.3 % (42-78); TOTAL CELLS COUNTED % (AUTO) 100 %; WHITE BLOOD COUNT 8.9 10^3/uL (4.0-10.5)
[2019-07-27 05:26] LABS: ANION GAP 9 (5-19); BLOOD UREA NITROGEN 22 mg/dL (7-20); CALCIUM 8.5 mg/dL (8.4-10.2); CARBON DIOXIDE 29 mmol/L (22-30); CHLORIDE 99 mmol/L (98-107); GLUCOSE 128 mg/dL (75-110); POTASSIUM 4.8 mmol/L (3.6-5.0)
[2019-07-27] MEDS: PREGABALIN 75 MG CAPSULE PO SCH ×2 (06:10→17:33)
[2019-07-27] MEDS: IPRATROPIUM/ALBUTEROL 0.5-2.5 MG/3 ML AMPUL NEB SCH ×3 (07:46→19:52)
[2019-07-27] MEDS: PREDNISONE 20 MG TABLET PO SCH (10:34)
[2019-07-27] MEDS: MIDODRINE HCL 5 MG TABLET PO SCH ×3 (10:34→17:33)
[2019-07-27] MEDS: MULTIVIT-STRESS FORMULA/ZINC TABLET PO SCH (10:35)
[2019-07-27] MEDS: CHOLECALCIFEROL (D3) 1,000 UNIT (25 MCG) TABLET PO SCH (10:35)
[2019-07-27] MEDS: THIAMINE HCL 100 MG TABLET PO SCH (10:35)
[2019-07-27] MEDS: FAMOTIDINE 20 MG TABLET PO SCH ×2 (10:35→21:58)
[2019-07-27] MEDS: DOCUSATE SODIUM 100 MG CAPSULE PO SCH ×2 (10:36→17:33)
[2019-07-27] MEDS: FOLIC ACID 1 MG TABLET PO SCH (10:36)
[2019-07-27] MEDS: LORATADINE 10 MG TABLET PO SCH (10:37)
[2019-07-27] MEDS: APIXABAN 2.5 MG TABLET PO SCH ×2 (10:37→16:59)
[2019-07-27] MEDS: FERROUS SULFATE 325 MG TABLET PO SCH (10:37)
[2019-07-27] MEDS: CYANOCOBALAMIN (VITAMIN B-12) 1,000 MCG TABLET PO SCH (10:37)
[2019-07-27] MEDS: FUROSEMIDE INJ/PF 20 MG/2 ML SDV IV SCH ×2 (10:41→21:57)
[2019-07-27] MEDS: NICOTINE 21 MG/24 HR PATCH.TD24 TD SCH (10:44)
[2019-07-27] MEDS: FLUTICASONE/VILANTEROL 200-25 MCG/DOSE IH SCH (10:46)
[2019-07-27] MEDS: TIOTROPIUM BROMIDE DPI 5 CAP/KIT (18 MCG/CAP) IH SCH (10:47)
[2019-07-27] MEDS: SALMETEROL XINAFOATE DISKUS 50 MCG/1 DOSE 28 DOSE IH SCH ×2 (10:47→21:57)
--- NOTE | 2019-07-27 12:53 | PDOC PROGRESS REPORT ---
Subjective Progress Note for:: 07/27/19 Subjective:: 64 year old male, who is a poor historian but by medical record is confirmed to have a past medical history significant for Chronic respiratory failure with hypoxia (on home O2), lymphedema, opiate dependent chronic pain, COPD, CAD, DVT, PE, GERD, obesity, RONIT, alcohol and tobacco dependence who presented to the emergency department today with a complaint of worsening appearance of chronic wound to his left medial ankle; now with sloughing and purulent drainage, i ncreased pain, and erythematous border. Patient reports that he has been seen by Dr. Cruz in the past, however, it has been more than a month since he has had an appointment. He is unable to tell me with the current plan of therapy is. Evaluation in the emergency department revealed baseline anemia (hemoglobin 10.2), INR of 2.22 (home medication list shows Xarelto), hypokalemia (2.8) hyper magnesium (1.3), elevated lactic acid (3.8), negative urinalysis, and EKG demonstrating normal sinus rhythm. A right foot x-ray was negative for bony demineralization but does demonstrate profound edema of the skin over bilateral feet. 07/23/2019. No acute events overnight. Mild improvement of bilateral lower extremity cellulitis and edema, mild improvement of CARMELA. Denies any fever, chills, nausea, vomiting, diarrhea, constipation or any urinary symptoms. 07/24/2019. No acute events overnight. Patient complaining of mild improvement of lower extremity pain. Has been hypoxic overnight, been using CPAP. Denies any chest pain, nausea, vomiting, diarrhea, constipation or any urinary sympto ms. 07/25/2019. No acute events overnight. Still complaining of bilateral lower extremity pain however compared to admission much improved. CPAP overnight. Denies any fever, chills, nausea, vomiting, diarrhea, constipation or any urinary symptoms. 07/26/2019. Saw patient after receiving hemodialysis, denies any fever, chills, nausea, vomiting, diarrhea, constipation or any urinary to the. Patient gets confused at times over my encounter patient alert oriented x3. 07/27/2019. No acute events overnight. Patient is comfortably sitting in bed enjoying his breakfast, slept well overnight, denies any fever, chills, nausea, vomiting, diarrhea, constipation or any urinary symptoms. Lower extremity pain and edema are improving. Patient is pending PermCath placement and transferred to rehab. Reason For Visit: CELLULITIS Physical Exam Vital Signs: Temp Pulse Resp BP Pulse Ox 97.9 F 82 18 126/65 H 96 07/27/19 08:32 07/27/19 08:32 07/27/19 08:32 07/27/19 08:32 07/27/19 08:32 Intake & Output 07/26/19 07/27/19 07/28/19 06:59 06:59 06:59 Intake Total 1660 1555 Output Total 600 1650 Balance 1060 -95 Weight 124.6 kg 123.4 kg General appearance: PRESENT: morbidly obese Respiratory exam: PRESENT: clear to auscultation lui. ABSENT: rales, rhonchi, wheezes Cardiovascular exam: PRESENT: RRR. ABSENT: diastolic murmur, rubs, systolic murmur GI/Abdominal exam: PRESENT: normal bowel sounds, soft. ABSENT: distended, guarding, mass, organolmegaly, rebound, tenderness Extremities exam: PRESENT: +2 edema Neurological exam: PRESENT: alert, awake, oriented to person, oriented to place, oriented to time, oriented to situation, CN II-XII grossly intact. ABSENT: motor sensory deficit Results Laboratory Results: 07/27/19 04:37 07/27/19 04:37 07/27/19 07/27/19 07/27/19 04:37 04:37 04:37 WBC 8.9 RBC 3.18 L Hgb 9.2 L Hct 28.2 L MCV 89 MCH 29.0 MCHC 32.7 RDW 20.1 H Plt Count 184 Seg Neutrophils % 71.3 Sodium 136.5 L Potassium 4.8 Chloride 99 Carbon Dioxide 29 Anion Gap 9 BUN 22 H Creatinine 4.64 H Est GFR ( Amer) 16 L Glucose 128 H Calcium 8.5 TSH 0.49 07/11/19 15:20 NT-Pro-B Natriuret Pep 372 Impressions: Chest X-Ray 07/11/19 00:00 IMPRESSION: Bibasilar airspace disease. Foot X-Ray 07/11/19 15:38 IMPRESSION: No aggressive bony demineralization or periosteal new bone worrisome for osteomyelitis. Profound edema and skin thickening over both the right and left dorsal foot Renal Ultrasound 07/17/19 00:00 IMPRESSION: Normal study. KUB X-Ray 07/25/19 00:00 IMPRESSION: Right femoral venous dialysis catheter tip over the right sacrum. Assessment and Plan - Diagnosis (1) Acute and chronic respiratory failure with hypoxia Is this a current diagnosis for this admission?: Yes Plan: Improving. SPO2 96% on 3 L NC. History of COPD on home O2. Likely worsening due to worsening kidney function and COPD exacerbation. Day 4 IV steroids Continue IV steroids, duo nebs, LABAs/Keagan, BiPAP. Monitor volume status and electrolytes. (2) CARMELA (acute kidney injury) Is this a current diagnosis for this admission?: Yes Plan: Nonoliguric. Adequate urine output. Hemodialysis Monday. Creatinine trending down(most likely due to HD), electrolytes WNL. Most likely secondary to vancomycin and Zosyn toxicity causing ATN 07/14/2019 vancomycin trough 56.3. Vancomycin was DC'd. 07/17/2019. Renal ultrasound WNL. 07/25/2019. PermCath was attempted however it was canceled due to patient being altered. It is rescheduled for Monday by Dr. Cruz. Nephrology on board. Recommendations noted. Plan is for continued hemodialysis. (3) Bilateral cellulitis of lower leg Is this a current diagnosis for this admission?: Yes Plan: Significant improvement. No obvious evidence of cellulitis. Initially was started on Vanco and Zosyn and was DC'd after supratherapeutic trough and CARMELA. Cultures negative. WBC WNL. (4) Stasis ulcer Qualifiers: Venous stasis ulcer site: ankle Varicose vein presence: unspecified whether present Laterality: left Is this a current diagnosis for this admission?: Yes Plan: Significant improvement. Status post post debridement of necrotic skin and dried exudate along the left malleolar by surgery. 06/15/2019. Venous Doppler negative for any DVT also in the same report arterial findings are normal to the popliteal, biphasic, spectrally broadened in the infrageniculate cruz Continue wound care, Kodak wrap, elevate extremities. Patient Is Pending Transfer to [place]. (5) Anemia Qualifiers: Anemia type: iron deficiency Is this a current diagnosis for this admission?: Yes Plan: Iron panel suggestive of iron deficiency anemia. No evidence of any active bleeding. Guaiac negative. History of chronic heavy alcohol abuse which could have contributed to his anemia. Denies any hematemesis, hemoptysis, melena, hematochezia, nosebleeds or hematuria. As per patient he has had upper and lower endoscopy about 3 years ago as outpatient and he was told they were negative. Colonoscopy done on 01/30/2018 here at [facility] showed colonic polyp, diverticulosis and internal hemorrhoids. Continue supplemental ferrous sulfate. Daily H&H. Supportive transfusions. (6) COPD (chronic obstructive pulmonary disease) Qualifiers: COPD type: chronic bronchitis Chronic bronchitis type: unspecified Qualified Code(s): J42 - Unspecified chronic bronchitis Is this a current diagnosis for this admission?: No Plan: Continue DuoNeb's, supplemental oxygen, PRN BiPAP, LABAs/Keagan (7) GERD (gastroesophageal reflux disease) Qualifiers: Esophagitis presence: esophagitis presence not specified Qualified Code(s): K21.9 - Gastro-esophageal reflux disease without esophagitis Is this a current diagnosis for this admission?: Yes Plan: Continue PPIs. (8) History of DVT (deep vein thrombosis) Is this a current diagnosis for this admission?: Yes Plan: On chronic anticoagulation. Renally dosed (9) Obesity, Class III, BMI 40-49.9 (morbid obesity) Is this a current diagnosis for this admission?: Yes Plan: Diet and lifestyle modification recommended.
[2019-07-27] MEDS: ATORVASTATIN CALCIUM 40 MG TABLET PO SCH (21:57)
[2019-07-27] MEDS: MELATONIN 5 MG TABLET PO SCH (21:57)
[2019-07-27] MEDS: MONTELUKAST SODIUM 10 MG TABLET PO SCH (21:58)
[2019-07-27] MEDS: TRAZODONE HCL 50 MG TABLET PO SCH (21:58)
[2019-07-28] MEDS: PREGABALIN 75 MG CAPSULE PO SCH ×2 (05:23→17:43)
[2019-07-28 06:23] LABS: HEMATOCRIT 27.9 % (37.9-51.0); HEMOGLOBIN 9.2 g/dL (13.5-17.0); MEAN CORPUSCULAR HEMOGLOBIN 29.3 pg (27.0-33.4); MEAN CORPUSCULAR VOLUME 89 fl (80-97); PLATELET COUNT 186 10^3/uL (150-450); RED BLOOD COUNT 3.15 10^6/uL (4.35-5.55); RED CELL DISTRIBUTION WIDTH 20.7 % (11.5-14.0); WHITE BLOOD COUNT 10.4 10^3/uL (4.0-10.5)
[2019-07-28 06:38] LABS: ALBUMIN 2.7 g/dL (3.5-5.0); ALKALINE PHOSPHATASE 98 U/L (38-126); ANION GAP 5 (5-19); ASPARTATE AMINO TRANSFERASE 33 U/L (17-59); BILIRUBIN,DIRECT 0.2 mg/dL (0.0-0.4); BILIRUBIN,TOTAL 0.3 mg/dL (0.2-1.3); BLOOD UREA NITROGEN 35 mg/dL (7-20); CALCIUM 8.6 mg/dL (8.4-10.2); CARBON DIOXIDE 31 mmol/L (22-30); CHLORIDE 100 mmol/L (98-107); GLUCOSE 118 mg/dL (75-110); POTASSIUM 4.9 mmol/L (3.6-5.0); TOTAL PROTEIN 7.3 g/dL (6.3-8.2)
[2019-07-28] MEDS: IPRATROPIUM/ALBUTEROL 0.5-2.5 MG/3 ML AMPUL NEB SCH ×3 (07:27→19:50)
[2019-07-28 07:34] LABS: ABSOLUTE LYMPHOCYTES# (MANUAL) 2.2 10^3/uL (0.5-4.7); ABSOLUTE MONOCYTES # (MANUAL) 1.1 10^3/uL (0.1-1.4); BASOPHILS % (MANUAL) 0 % (0-2); EOSINOPHILS % (MANUAL) 0 % (0-6); LYMPHOCYTES % (MANUAL) 21 % (13-45); MONOCYTES % (MANUAL) 11 % (3-13); SEGMENTED NEUTROPHILS % (MAN) 68 % (42-78); TOTAL CELLS COUNTED 100
[2019-07-28 07:35] LABS: ANISOCYTOSIS 2+; PLATELET COMMENT ADEQUATE; POIKILOCYTOSIS 1+; TARGET CELLS 1+
--- NOTE | 2019-07-28 09:40 | PDOC PROGRESS REPORT ---
Subjective Progress Note for:: 07/28/19 Subjective:: 64 year old male, who is a poor historian but by medical record is confirmed to have a past medical history significant for Chronic respiratory failure with hypoxia (on home O2), lymphedema, opiate dependent chronic pain, COPD, CAD, DVT, PE, GERD, obesity, RONIT, alcohol and tobacco dependence who presented to the emergency department today with a complaint of worsening appearance of chronic wound to his left medial ankle; now with sloughing and purulent drainage, i ncreased pain, and erythematous border. Patient reports that he has been seen by Dr. Cruz in the past, however, it has been more than a month since he has had an appointment. He is unable to tell me with the current plan of therapy is. Evaluation in the emergency department revealed baseline anemia (hemoglobin 10.2), INR of 2.22 (home medication list shows Xarelto), hypokalemia (2.8) hyper magnesium (1.3), elevated lactic acid (3.8), negative urinalysis, and EKG demonstrating normal sinus rhythm. A right foot x-ray was negative for bony demineralization but does demonstrate profound edema of the skin over bilateral feet. 07/23/2019. No acute events overnight. Mild improvement of bilateral lower extremity cellulitis and edema, mild improvement of CAREMLA. Denies any fever, chills, nausea, vomiting, diarrhea, constipation or any urinary symptoms. 07/24/2019. No acute events overnight. Patient complaining of mild improvement of lower extremity pain. Has been hypoxic overnight, been using CPAP. Denies any chest pain, nausea, vomiting, diarrhea, constipation or any urinary sympto ms. 07/25/2019. No acute events overnight. Still complaining of bilateral lower extremity pain however compared to admission much improved. CPAP overnight. Denies any fever, chills, nausea, vomiting, diarrhea, constipation or any urinary symptoms. 07/26/2019. Saw patient after receiving hemodialysis, denies any fever, chills, nausea, vomiting, diarrhea, constipation or any urinary to the. Patient gets confused at times over my encounter patient alert oriented x3. 07/27/2019. No acute events overnight. Patient is comfortably sitting in bed enjoying his breakfast, slept well overnight, denies any fever, chills, nausea, vomiting, diarrhea, constipation or any urinary symptoms. Lower extremity pain and edema are improving. Patient is pending PermCath placement and transferred to rehab. 07/28/2019. No acute events overnight. Patient is comfortably sitting in bed, enjoying breakfast, alert oriented x3, cooperative with physical examination, good night sleep, p.o. tolerant, having normal bowel and bladder movements, lower extremity edema and pain has improved significantly. His hemoglobin is stable, electrolytes WNL, creatinine 5.1 today. Urine output is 1800. Patient is pending Port-A-Cath placement and transfer to rehab. Hopefully tomorrow. Reason For Visit: CELLULITIS Physical Exam Vital Signs: Temp Pulse Resp BP Pulse Ox 97.7 F 75 18 111/54 L 94 07/28/19 04:51 07/28/19 07:27 07/28/19 07:27 07/28/19 04:51 07/28/19 07:27 Intake & Output 07/27/19 07/28/19 07/29/19 06:59 06:59 06:59 Intake Total 1555 1236 Output Total 1650 1800 Balance -95 -564 Weight 123.4 kg 123.6 kg General appearance: PRESENT: no acute distress, morbidly obese, well-developed, well-nourished Head exam: PRESENT: atraumatic, normocephalic Respiratory exam: PRESENT: clear to auscultation lui. ABSENT: rales, rhonchi, wheezes GI/Abdominal exam: PRESENT: normal bowel sounds, soft. ABSENT: distended, guarding, mass, organolmegaly, rebound, tenderness Extremities exam: PRESENT: full ROM, other - Bilateral lower extremity stasis dermatitis and swelling, significant improvement since admission, no sign of cellulitis or infection.. ABSENT: calf tenderness, clubbing, pedal edema Results Laboratory Results: 07/28/19 05:26 07/28/19 05:26 07/28/19 07/28/19 05:26 05:26 WBC 10.4 RBC 3.15 L Hgb 9.2 L Hct 27.9 L MCV 89 MCH 29.3 MCHC 33.0 RDW 20.7 H Plt Count 186 Seg Neutrophils % Not Reportable Sodium 136.4 L Potassium 4.9 Chloride 100 Carbon Dioxide 31 H Anion Gap 5 BUN 35 H Creatinine 5.10 H Est GFR ( Amer) 14 L Glucose 118 H Calcium 8.6 Total Bilirubin 0.3 AST 33 Alkaline Phosphatase 98 Total Protein 7.3 Albumin 2.7 L 07/11/19 15:20 NT-Pro-B Natriuret Pep 372 Impressions: Chest X-Ray 07/11/19 00:00 IMPRESSION: Bibasilar airspace disease. Foot X-Ray 07/11/19 15:38 IMPRESSION: No aggressive bony demineralization or periosteal new bone worrisome for osteomyelitis. Profound edema and skin thickening over both the right and left dorsal foot Renal Ultrasound 07/17/19 00:00 IMPRESSION: Normal study. KUB X-Ray 07/25/19 00:00 IMPRESSION: Right femoral venous dialysis catheter tip over the right sacrum. Assessment and Plan - Diagnosis (1) Acute and chronic respiratory failure with hypoxia Is this a current diagnosis for this admission?: Yes Plan: Improving. SPO2 96% on 3 L NC. History of COPD on home O2. Likely worsening due to worsening kidney function and COPD exacerbation. Day 5 IV steroids Continue IV steroids, duo nebs, LABAs/Keagan, BiPAP. Monitor volume status and electrolytes. (2) CARMELA (acute kidney injury) Is this a current diagnosis for this admission?: Yes Plan: Nonoliguric. Urine output 1800. Hemodialysis Monday. Creatinine trending down(most likely due to HD), electrolytes WNL. Most likely secondary to vancomycin and Zosyn toxicity causing ATN 07/14/2019 vancomycin trough 56.3. Vancomycin was DC'd. 07/17/2019. Renal ultrasound WNL. 07/25/2019. PermCath was attempted however it was canceled due to patient being altered. It is rescheduled for Monday by Dr. Cruz. Nephrology on board. Recommendations noted. Plan is for continued hemodialysis. (3) Bilateral cellulitis of lower leg Is this a current diagnosis for this admission?: Yes Plan: Significant improvement. No obvious evidence of cellulitis. Initially was started on Vanco and Zosyn and was DC'd after supratherapeutic trough and CARMELA. Cultures negative. WBC WNL. Continue compression socks, lower extremity elevation. Continue wound care. (4) Stasis ulcer Qualifiers: Venous stasis ulcer site: ankle Varicose vein presence: unspecified whether present Laterality: left Is this a current diagnosis for this admission?: Yes Plan: Significant improvement. Status post post debridement of necrotic skin and dried exudate along the left malleolar by surgery. 06/15/2019. Venous Doppler negative for any DVT also in the same report arterial findings are normal to the popliteal, biphasic, spectrally broadened in the infrageniculate cruz Continue wound care, Kodak wrap, elevate extremities. Patient Is Pending Transfer to [place]. (5) Anemia Qualifiers: Anemia type: iron deficiency Is this a current diagnosis for this admission?: Yes Plan: Hemoglobin stable. Denies any shortness of breath or any anginal symptoms. Iron panel suggestive of iron deficiency anemia. No evidence of any active bleeding. Guaiac negative. History of chronic heavy alcohol abuse which could have contributed to his anemia. Denies any hematemesis, hemoptysis, melena, hematochezia, nosebleeds or hematuria. As per patient he has had upper and lower endoscopy about 3 years ago as out patient and he was told they were negative. Colonoscopy done on 01/30/2018 here at [facility] showed colonic polyp, diverticulosis and internal hemorrhoids. Continue supplemental ferrous sulfate. Daily H&H. Supportive transfusions. (6) COPD (chronic obstructive pulmonary disease) Qualifiers: COPD type: chronic bronchitis Chronic bronchitis type: unspecified Qualified Code(s): J42 - Unspecified chronic bronchitis Is this a current diagnosis for this admission?: No Plan: Continue DuoNeb's, supplemental oxygen, PRN BiPAP, LABAs/Keagan (7) GERD (gastroesophageal reflux disease) Qualifiers: Esophagitis presence: esophagitis presence not specified Qualified Code(s): K21.9 - Gastro-esophageal reflux disease without esophagitis Is this a current diagnosis for this admission?: Yes Plan: Continue PPIs. (8) History of DVT (deep vein thrombosis) Is this a current diagnosis for this admission?: Yes Plan: On chronic anticoagulation. Renally dosed (9) Obesity, Class III, BMI 40-49.9 (morbid obesity) Is this a current diagnosis for this admission?: Yes Plan: Diet and lifestyle modification recommended.
[2019-07-28] MEDS: CYANOCOBALAMIN (VITAMIN B-12) 1,000 MCG TABLET PO SCH (10:38)
[2019-07-28] MEDS: MULTIVIT-STRESS FORMULA/ZINC TABLET PO SCH (10:38)
[2019-07-28] MEDS: FAMOTIDINE 20 MG TABLET PO SCH ×2 (10:38→23:28)
[2019-07-28] MEDS: FOLIC ACID 1 MG TABLET PO SCH (10:38)
[2019-07-28] MEDS: FERROUS SULFATE 325 MG TABLET PO SCH (10:38)
[2019-07-28] MEDS: PREDNISONE 20 MG TABLET PO SCH (10:38)
[2019-07-28] MEDS: THIAMINE HCL 100 MG TABLET PO SCH (10:38)
[2019-07-28] MEDS: LORATADINE 10 MG TABLET PO SCH (10:39)
[2019-07-28] MEDS: FUROSEMIDE INJ/PF 20 MG/2 ML SDV IV SCH ×2 (10:39→23:27)
[2019-07-28] MEDS: DOCUSATE SODIUM 100 MG CAPSULE PO SCH ×2 (10:39→17:43)
[2019-07-28] MEDS: CHOLECALCIFEROL (D3) 1,000 UNIT (25 MCG) TABLET PO SCH (10:39)
[2019-07-28] MEDS: FLUTICASONE/VILANTEROL 200-25 MCG/DOSE IH SCH (10:40)
[2019-07-28] MEDS: SALMETEROL XINAFOATE DISKUS 50 MCG/1 DOSE 28 DOSE IH SCH ×2 (10:41→23:29)
[2019-07-28] MEDS: MIDODRINE HCL 5 MG TABLET PO SCH ×3 (10:41→17:43)
[2019-07-28] MEDS: TIOTROPIUM BROMIDE DPI 5 CAP/KIT (18 MCG/CAP) IH SCH (10:41)
[2019-07-28] MEDS: APIXABAN 2.5 MG TABLET PO SCH ×2 (10:55→17:34)
[2019-07-28] MEDS: NICOTINE 21 MG/24 HR PATCH.TD24 TD SCH (10:55)
[2019-07-28] MEDS: MONTELUKAST SODIUM 10 MG TABLET PO SCH (23:28)
[2019-07-28] MEDS: ATORVASTATIN CALCIUM 40 MG TABLET PO SCH (23:28)
[2019-07-28] MEDS: TRAZODONE HCL 50 MG TABLET PO SCH (23:28)
[2019-07-28] MEDS: MELATONIN 5 MG TABLET PO SCH (23:29)
[2019-07-29] MEDS ORDERED: HEPARIN SOD (PORCINE) 1,000 UNIT/ML 10 ML VIAL IV PRN (05:00)
[2019-07-29] MEDS ORDERED: NORMAL SALINE 1000 ML 1,000 ML IV PRN (05:00)
[2019-07-29] MEDS: PREGABALIN 75 MG CAPSULE PO SCH ×2 (05:38→18:43)
[2019-07-29 06:09] LABS: HEMATOCRIT 26.7 % (37.9-51.0); HEMOGLOBIN 8.7 g/dL (13.5-17.0); MEAN CORPUSCULAR HEMOGLOBIN 28.7 pg (27.0-33.4); MEAN CORPUSCULAR HGB CONC 32.6 g/dL (32.0-36.0); MEAN CORPUSCULAR VOLUME 88 fl (80-97); PLATELET COUNT 187 10^3/uL (150-450); RED BLOOD COUNT 3.03 10^6/uL (4.35-5.55); RED CELL DISTRIBUTION WIDTH 19.9 % (11.5-14.0); WHITE BLOOD COUNT 11.6 10^3/uL (4.0-10.5)
[2019-07-29 06:35] LABS: ANION GAP 6 (5-19); BLOOD UREA NITROGEN 44 mg/dL (7-20); CALCIUM 8.7 mg/dL (8.4-10.2); CARBON DIOXIDE 31 mmol/L (22-30); CHLORIDE 98 mmol/L (98-107); GLUCOSE 104 mg/dL (75-110); POTASSIUM 4.9 mmol/L (3.6-5.0)
[2019-07-29] MEDS: IPRATROPIUM/ALBUTEROL 0.5-2.5 MG/3 ML AMPUL NEB SCH ×3 (09:09→20:46)
[2019-07-29] MEDS ORDERED: BACITRACIN INJ 50,000 UNIT VIAL ONE (09:48)
[2019-07-29] MEDS ORDERED: LIDOCAINE 0.5% INJ-PF (5 MG/ML) 50 ML SDV ONE (09:48)
[2019-07-29] MEDS ORDERED: MIDAZOLAM 2 MG/2 ML INJ ONE (09:50)
[2019-07-29] MEDS ORDERED: FENTANYL CITRATE INJ/PF 100 MCG/2 ML AMPUL ONE (09:51)
[2019-07-29] MEDS ORDERED: CEFAZOLIN INJ 1 GM VIAL ONE (09:51)
[2019-07-29] MEDS ORDERED: VANCOMYCIN HCL 500 MG in DEXTROSE 5%-WATER 100 ML IV ONE (11:00)
--- NOTE | 2019-07-29 11:14 | RADIOLOGY REPORT (SQ) ---
EXAM DESCRIPTION: TUNNELED CENTRAL LINE COMPLETED DATE/TIME: 07/29/2019 10:52 am REASON FOR STUDY: NEED FOR VASCULAR ACCESS COMPARISON: None. FLUOROSCOPY TIME: 0.3 minutes. 72 images saved to PACS. TECHNIQUE: Intra-operative images acquired during surgical procedure to evaluate progress. NUMBER OF IMAGES: 72 images. LIMITATIONS: None. FINDINGS: Images of the chest acquired during catheter placement. IMPRESSION: IMAGE(S) OBTAINED DURING PROCEDURE. COMMENT: Quality ID [id number]: Final reports for procedures using fluoroscopy that document radiation exp osure indices, or exposure time and number of fluorographic images (if radiation exposure indices are not available) Please consult full operative report of the attending physician for description of the procedure. TECHNICAL DOCUMENTATION: JOB ID: [id number] [employer]- All Rights Reserved Reading location - IP/workstation name: [email or web address]
--- NOTE | 2019-07-29 11:39 | Operative Report ---
Operative Report DATE OF SURGERY: 07/29/19 PREOPERATIVE DIAGNOSIS: End-stage renal disease requiring hemodialysis. POSTOPERATIVE DIAGNOSIS: End-stage renal disease requiring hemodialysis. OPERATION: 1. Ultrasound evaluation of the right internal jugular vein. 2. Insertion of permacatheter via real-time access in the right internal jugular vein. 3. Angiogram and interpretation. SURGEON: CRYSTAL MOTLEY DIRECTOR COMMUNITY HEALTH NURSING: None. ANESTHESIA: Moderate Sedation TISSUE REMOVED OR ALTERED: Not applicable. COMPLICATIONS: None. ESTIMATED BLOOD LOSS: 5 mL. INTRAOPERATIVE FINDINGS: Of a satisfactory right internal jugular vein to support catheter. Left catheter well-known to the right atrial pool. Easy egress of blood and ingress of heparinized solution through both ports. Satisfactory postprocedure x-ray with hardware in good position, no untoward findings. Contrast study showing smooth flow of contrast through the catheter, right atrium ventricle. The tip of the catheter well down in the right atrial pool. PROCEDURE: After obtaining informed consent, the patient was taken to the [Patient Safety Officer] and positioned supine. The [right neck] and chest were prepared with chlorhexidine and draped out with sterile linen. After the " universal timeout", in which it was verified that the patient continued to receive antibiotic, the procedure commenced. A steriley sheathed ultrasound probe was used to evaluate the [right internal jugular] vein. Local anesthesia was infiltrated adjacent to the probe. Access into the [right internal jugular] vein was obtained using a micropuncture needle, followed by micropuncture wire and then a micropuncture catheter. This was followed by introduction of a 0.035 guidewire the tip of which was placed down into the inferior vena cava . A 23 cm long [split catheter] was now positioned over the chest and an exit site marked and locally anesthetized ,the catheter was placed between the 2 incisions. Proximally, the catheter was now positioned using a peel-away sheath, after dilation. Easy ingress of heparinized solution and egress of blood obtained through both ports. A completion angiogram was done by injecting contrast. The findings were as dictated. The neck incision was now closed using interrupted 3-0 PDS to the subcutaneous tissues, the catheter was anchored at the exit site using 3-0 PDS. A Biopatch device was now placed adjacent to the catheter. Dressings were applied and the procedure concluded. Exposure time: [0.3 minutes]. Exposure: 10.68 Kaya Green. Contrast amount: [5 mL] of [id number] low osmolality. Copies of the dictated operative report for Dr. Crystal Cruz MD.concluded. Copies of the dictated operative report for Dr. Crystal Cruz MD.
[2019-07-29] MEDS: FLUTICASONE/VILANTEROL 200-25 MCG/DOSE IH SCH (12:46)
[2019-07-29] MEDS: MULTIVIT-STRESS FORMULA/ZINC TABLET PO SCH (12:47)
[2019-07-29] MEDS: FOLIC ACID 1 MG TABLET PO SCH (12:47)
[2019-07-29] MEDS: CHOLECALCIFEROL (D3) 1,000 UNIT (25 MCG) TABLET PO SCH (12:47)
[2019-07-29] MEDS: SALMETEROL XINAFOATE DISKUS 50 MCG/1 DOSE 28 DOSE IH SCH ×2 (12:47→21:18)
[2019-07-29] MEDS: TIOTROPIUM BROMIDE DPI 5 CAP/KIT (18 MCG/CAP) IH SCH (12:47)
[2019-07-29] MEDS: THIAMINE HCL 100 MG TABLET PO SCH (12:48)
[2019-07-29] MEDS: LORATADINE 10 MG TABLET PO SCH (12:48)
[2019-07-29] MEDS: FAMOTIDINE 20 MG TABLET PO SCH ×2 (12:48→21:19)
[2019-07-29] MEDS: MIDODRINE HCL 5 MG TABLET PO SCH ×3 (12:48→18:43)
[2019-07-29] MEDS: CYANOCOBALAMIN (VITAMIN B-12) 1,000 MCG TABLET PO SCH (12:49)
[2019-07-29] MEDS: DOCUSATE SODIUM 100 MG CAPSULE PO SCH ×2 (12:49→18:43)
[2019-07-29] MEDS: PREDNISONE 20 MG TABLET PO SCH (12:49)
[2019-07-29] MEDS: FUROSEMIDE INJ/PF 20 MG/2 ML SDV IV SCH (12:49)
[2019-07-29] MEDS: FERROUS SULFATE 325 MG TABLET PO SCH ×2 (12:49→18:43)
[2019-07-29] MEDS: NICOTINE 21 MG/24 HR PATCH.TD24 TD SCH (12:57)
--- NOTE | 2019-07-29 14:28 | PDOC PROGRESS REPORT ---
Subjective Progress Note for:: 07/29/19 Subjective:: 64 year old male, who is a poor historian but by medical record is confirmed to have a past medical history significant for Chronic respiratory failure with hypoxia (on home O2), lymphedema, opiate dependent chronic pain, COPD, CAD, DVT, PE, GERD, obesity, RONIT, alcohol and tobacco dependence who presented to the emergency department today with a complaint of worsening appearance of chronic wound to his left medial ankle; now with sloughing and purulent drainage, i ncreased pain, and erythematous border. Patient reports that he has been seen by Dr. Cruz in the past, however, it has been more than a month since he has had an appointment. He is unable to tell me with the current plan of therapy is. Evaluation in the emergency department revealed baseline anemia (hemoglobin 10.2), INR of 2.22 (home medication list shows Xarelto), hypokalemia (2.8) hyper magnesium (1.3), elevated lactic acid (3.8), negative urinalysis, and EKG demonstrating normal sinus rhythm. A right foot x-ray was negative for bony demineralization but does demonstrate profound edema of the skin over bilateral feet. 07/23/2019. No acute events overnight. Mild improvement of bilateral lower extremity cellulitis and edema, mild improvement of CARMELA. Denies any fever, chills, nausea, vomiting, diarrhea, constipation or any urinary symptoms. 07/24/2019. No acute events overnight. Patient complaining of mild improvement of lower extremity pain. Has been hypoxic overnight, been using CPAP. Denies any chest pain, nausea, vomiting, diarrhea, constipation or any urinary sympto ms. 07/25/2019. No acute events overnight. Still complaining of bilateral lower extremity pain however compared to admission much improved. CPAP overnight. Denies any fever, chills, nausea, vomiting, diarrhea, constipation or any urinary symptoms. 07/26/2019. Saw patient after receiving hemodialysis, denies any fever, chills, nausea, vomiting, diarrhea, constipation or any urinary to the. Patient gets confused at times over my encounter patient alert oriented x3. 07/27/2019. No acute events overnight. Patient is comfortably sitting in bed enjoying his breakfast, slept well overnight, denies any fever, chills, nausea, vomiting, diarrhea, constipation or any urinary symptoms. Lower extremity pain and edema are improving. Patient is pending PermCath placement and transferred to rehab. 07/28/2019. No acute events overnight. Patient is comfortably sitting in bed, enjoying breakfast, alert oriented x3, cooperative with physical examination, good night sleep, p.o. tolerant, having normal bowel and bladder movements, lower extremity edema and pain has improved significantly. His hemoglobin is stable, electrolytes WNL, creatinine 5.1 today. Urine output is 1800. Patient is pending Port-A-Cath placement and transfer to rehab. Hopefully tomorrow. 07/29/2019. Acute events overnight, status post permacath placement and hemodialysis, no acute events overnight, patient is ambulating to his chair, lower extremity edema has improved, alert oriented x3, denies any fever, chills, nausea, vomiting, diarrhea, constipation or any urinary symptoms. Patient is pending transfer to [place] after his hemodialysis is arranged by Dorothy. Nephrology following. Reason For Visit: CELLULITIS Physical Exam Vital Signs: Temp Pulse Resp BP Pulse Ox 97.5 F 83 18 128/68 H 97 07/29/19 09:15 07/29/19 13:39 07/29/19 13:39 07/29/19 09:15 07/29/19 13:39 Intake & Output 07/28/19 07/29/19 07/30/19 06:59 06:59 06:59 Intake Total 1236 1700 Output Total 1800 2225 Balance -564 -525 Weight 123.6 kg 124.3 kg General appearance: PRESENT: morbidly obese Head exam: PRESENT: atraumatic, normocephalic Respiratory exam: PRESENT: clear to auscultation lui. ABSENT: rales, rhonchi, wheezes Cardiovascular exam: PRESENT: RRR. ABSENT: diastolic murmur, rubs, systolic murmur Vascular exam: PRESENT: normal capillary refill GI/Abdominal exam: PRESENT: normal bowel sounds, soft. ABSENT: distended, guarding, mass, organolmegaly, rebound, tenderness Extremities exam: PRESENT: full ROM, other - Bilateral lower extremity venous stasis. Improving. No sign of infection.. ABSENT: calf tenderness, clubbing, pedal edema Neurological exam: PRESENT: alert, awake, oriented to person, oriented to place, oriented to time, oriented to situation, CN II-XII grossly intact. ABSENT: motor sensory deficit Results Laboratory Results: 07/29/19 05:23 07/29/19 05:23 07/29/19 07/29/19 05:23 05:23 WBC 11.6 H RBC 3.03 L Hgb 8.7 L Hct 26.7 L MCV 88 MCH 28.7 MCHC 32.6 RDW 19.9 H Plt Count 187 Sodium 135.3 L Potassium 4.9 Chloride 98 Carbon Dioxide 31 H Anion Gap 6 BUN 44 H Creatinine 5.50 H Est GFR ( Amer) 13 L Glucose 104 Calcium 8.7 07/11/19 15:20 NT-Pro-B Natriuret Pep 372 Impressions: Chest X-Ray 07/11/19 00:00 IMPRESSION: Bibasilar airspace disease. Foot X-Ray 07/11/19 15:38 IMPRESSION: No aggressive bony demineralization or periosteal new bone worrisome for osteomyelitis. Profound edema and skin thickening over both the right and left dorsal foot Renal Ultrasound 07/17/19 00:00 IMPRESSION: Normal study. KUB X-Ray 07/25/19 00:00 IMPRESSION: Right femoral venous dialysis catheter tip over the right sacrum. Central Venous Line 07/29/19 00:00 IMPRESSION: IMAGE(S) OBTAINED DURING PROCEDURE. Assessment and Plan - Diagnosis (1) Acute and chronic respiratory failure with hypoxia Is this a current diagnosis for this admission?: Yes Plan: Improving. SPO2 96% on 3 L NC. History of COPD on home O2. Likely worsening due to worsening kidney function and COPD exacerbation. Received 6 days of IV steroids. Continue duo nebs, LABAs/Keagan, BiPAP, incentive spirometry, flutter valve, supplemental oxygen. Monitor volume status and electrolytes. (2) CARMELA (acute kidney injury) Is this a current diagnosis for this admission?: Yes Plan: Nonoliguric. Urine output . Hemodialysis Monday. Creatinine trending down(most likely due to HD), electrolytes WNL. Most likely secondary to vancomycin and Zosyn toxicity causing ATN 07/14/2019 vancomycin trough 56.3. Vancomycin was DC'd. 07/17/2019. Renal ultrasound WNL. 07/29/2019. Status post permacath placement. 07/25/2019. PermCath was attempted however it was canceled due to patient being altered. It is rescheduled for Monday by Dr. Cruz. Nephrology on board. Recommendations noted. Plan is for continued hemodialysis. (3) Bilateral cellulitis of lower leg Is this a current diagnosis for this admission?: Yes Plan: Significant improvement. No obvious evidence of cellulitis. Initially was started on Vanco and Zosyn and was DC'd after supratherapeutic trough and CARMELA. Cultures negative. WBC WNL. Continue compression socks, lower extremity elevation. Continue wound care. (4) Stasis ulcer Qualifiers: Venous stasis ulcer site: ankle Varicose vein presence: unspecified whether present Laterality: left Is this a current diagnosis for this admission?: Yes Plan: Significant improvement. Status post post debridement of necrotic skin and dried exudate along the left malleolar by surgery. 06/15/2019. Venous Doppler negative for any DVT also in the same report arterial findings are normal to the popliteal, biphasic, spectrally broadened in the infrageniculate cruz Continue wound care, Kodak wrap, elevate extremities. Patient Is Pending Transfer to [place]. (5) Anemia Qualifiers: Anemia type: iron deficiency Is this a current diagnosis for this admission?: Yes Plan: Hemoglobin stable. Denies any shortness of breath or any anginal symptoms. Iron panel suggestive of iron deficiency anemia. No evidence of any active blee ding. Guaiac negative. History of chronic heavy alcohol abuse which could have contributed to his anemia. Denies any hematemesis, hemoptysis, melena, hematochezia, nosebleeds or hematuria. As per patient he has had upper and lower endoscopy about 3 years ago as outpatient and he was told they were negative. Colonoscopy done on 01/30/[address] [facility] showed colonic polyp, diverticulosis and internal hemorrhoids. Continue supplemental ferrous sulfate. Daily H&H. Supportive transfusions. (6) COPD (chronic obstructive pulmonary disease) Qualifiers: COPD type: chronic bronchitis Chronic bronchitis type: unspecified Qualified Code(s): J42 - Unspecified chronic bronchitis Is this a current diagnosis for this admission?: No Plan: Continue DuoNeb's, supplemental oxygen, PRN BiPAP, LABAs/Keagan (7) GERD (gastroesophageal reflux disease) Qualifiers: Esophagitis presence: esophagitis presence not specified Qualified Code(s): K21.9 - Gastro-esophageal reflux disease without esophagitis Is this a current diagnosis for this admission?: Yes Plan: Continue PPIs. (8) History of DVT (deep vein thrombosis) Is this a current diagnosis for this admission?: Yes Plan: On chronic anticoagulation. Renally dosed (9) Obesity, Class III, BMI 40-49.9 (morbid obesity) Is this a current diagnosis for this admission?: Yes Plan: Diet and lifestyle modification recommended.
--- NOTE | 2019-07-29 16:38 | PDOC PROGRESS REPORT ---
Subjective Progress Note for:: 07/29/19 Subjective:: I am seeing the patient during dialysis this afternoon. He tells me that he is doing fine and his been talking and communicating very well. He seems to be very lively today and full of energy. He underwent PermCath placement this morning without any complications. We attempted to do dialysis on his temporary right inguinal trialysis catheter earlier this morning but unfortunately the catheter was not working well so we have him go to his planned procedure for PermCath placement and now we are dialyzing him back. His PermCath seems to be working fine. He is tolerating dialysis without any problems. Reason For Visit: CELLULITIS Physical Exam Vital Signs: Temp Pulse Resp BP Pulse Ox 97.7 F 83 18 125/71 97 07/29/19 11:19 07/29/19 13:39 07/29/19 13:39 07/29/19 11:19 07/29/19 13:39 Intake & Output 07/28/19 07/29/19 07/30/19 06:59 06:59 06:59 Intake Total 1236 1700 702 Output Total 1800 2225 1020 Balance -564 -525 -318 Weight 123.6 kg 124.3 kg Vitals during dialysis: Blood pressure 122/66, heart rate of 81, blood flow rate of 300 mL/min and dialysate flow rate of 600 mL/min Exam: General appearance: PRESENT: no acute distress, cooperative, well-developed, well-nourished Head exam: PRESENT: atraumatic, normocephalic Eye exam: PRESENT: conjunctiva pale, PERRLA. ABSENT: scleral icterus Neck exam: ABSENT: JVD Respiratory exam: PRESENT: Normal breath sounds. ABSENT: crackles, rales, r honchi, unlabored, wheezes Cardiovascular exam: PRESENT: Regular rate rhythm -+S1, +S2. ABSENT: diastolic murmur, systolic murmur GI/Abdominal exam: PRESENT: normal bowel sounds, soft. ABSENT: guarding, mass, tenderness Extremities exam: Unchanged grade 1 bilateral lower extremity pitting and pcu rn nasreen edema Neurological exam: PRESENT: alert, awake, oriented to person, place and time. Skin exam: PRESENT: dry, warm, Cardiovascular exam: PRESENT: +S1, +S2 GI/Abdominal exam: PRESENT: normal bowel sounds, soft. ABSENT: organomegaly, tenderness Results Laboratory Results: 07/29/19 05:23 07/29/19 05:23 07/29/19 07/29/19 05:23 05:23 WBC 11.6 H RBC 3.03 L Hgb 8.7 L Hct 26.7 L MCV 88 MCH 28.7 MCHC 32.6 RDW 19.9 H Plt Count 187 Sodium 135.3 L Potassium 4.9 Chloride 98 Carbon Dioxide 31 H Anion Gap 6 BUN 44 H Creatinine 5.50 H Est GFR ( Amer) 13 L Glucose 104 Calcium 8.7 07/11/19 15:20 NT-Pro-B Natriuret Pep 372 Impressions: Chest X-Ray 07/11/19 00:00 IMPRESSION: Bibasilar airspace disease. Foot X-Ray 07/11/19 15:38 IMPRESSION: No aggressive bony demineralization or periosteal new bone worrisome for osteomyelitis. Profound edema and skin thickening over both the right and left dorsal foot Renal Ultrasound 07/17/19 00:00 IMPRESSION: Normal study. KUB X-Ray 07/25/19 00:00 IMPRESSION: Right femoral venous dialysis catheter tip over the right sacrum. Central Venous Line 07/29/19 00:00 IMPRESSION: IMAGE(S) OBTAINED DURING PROCEDURE. Assessment & Plan - Diagnosis (1) CARMELA (acute kidney injury) Is this a current diagnosis for this admission?: Yes Plan: Patient is still nonoliguric. CARMELA is due to ATN due to vancomycin toxicity and the combination of IV vancomycin and Zosyn. Status post right IJ PermCath placement this morning by Dr. Cruz. We will do dialysis today for 3 hours, using the patient's right IJ PermCath, with 2 potassium bath, blood flow rate of [300] mL per minute, dialysate flow rate of [600] mL per minute, ultrafiltration [500 to 1000 mL as tolerated], no heparin and no Procrit. Patient will be monitored throughout dialysis treatment. In preparation for getting discharge we will remove the Atkins catheter. We will switch to furosemide 10 mg IV every 12 to 20 mg orally daily. From nephrology standpoint getting the patient can be discharged to rehab arranged in [place] and to continue dialysis as an CARMELA patient requiring reevaluation at least every week to see if he will regain his kidney function. (2) Anemia Qualifiers: Anemia type: iron deficiency Is this a current diagnosis for this admission?: Yes Plan: Continue oral ferrous sulfate but increase the dose to twice daily upon discharge. (3) Bilateral cellulitis of lower leg Is this a current diagnosis for this admission?: Yes (4) Stasis ulcer Qualifiers: Venous stasis ulcer site: ankle Varicose vein presence: unspecified whether present Laterality: left Is this a current diagnosis for this admission?: Yes (5) Alcohol dependence Is this a current diagnosis for this admission?: Yes (6) RONIT (obstructive sleep apnea) Is this a current diagnosis for this admission?: Yes - Notes Notes: Patient is stable for discharge from nephrology standpoint. As per planner/scheduler patient was arranged for rehab placement in [place] as well as dialysis. - Time Time with patient: 15-25 minutes
[2019-07-29] MEDS: TRAZODONE HCL 50 MG TABLET PO SCH (21:19)
[2019-07-29] MEDS: ATORVASTATIN CALCIUM 40 MG TABLET PO SCH (21:20)
[2019-07-29] MEDS: MELATONIN 5 MG TABLET PO SCH (21:20)
[2019-07-29] MEDS: MONTELUKAST SODIUM 10 MG TABLET PO SCH (21:20)
[2019-07-30] MEDS: PREGABALIN 75 MG CAPSULE PO SCH ×2 (05:54→17:10)
[2019-07-30 05:55] LABS: HEMATOCRIT 26.7 % (37.9-51.0); HEMOGLOBIN 8.6 g/dL (13.5-17.0); MEAN CORPUSCULAR HEMOGLOBIN 28.4 pg (27.0-33.4); MEAN CORPUSCULAR HGB CONC 32.2 g/dL (32.0-36.0); MEAN CORPUSCULAR VOLUME 88 fl (80-97); PLATELET COUNT 197 10^3/uL (150-450); RED BLOOD COUNT 3.02 10^6/uL (4.35-5.55); RED CELL DISTRIBUTION WIDTH 20.1 % (11.5-14.0); WHITE BLOOD COUNT 11.6 10^3/uL (4.0-10.5)
[2019-07-30 06:06] LABS: ALBUMIN 2.7 g/dL (3.5-5.0); ALKALINE PHOSPHATASE 82 U/L (38-126); ANION GAP 6 (5-19); ASPARTATE AMINO TRANSFERASE 31 U/L (17-59); BILIRUBIN,DIRECT 0.2 mg/dL (0.0-0.4); BILIRUBIN,TOTAL 0.4 mg/dL (0.2-1.3); BLOOD UREA NITROGEN 29 mg/dL (7-20); CALCIUM 8.5 mg/dL (8.4-10.2); CARBON DIOXIDE 31 mmol/L (22-30); CHLORIDE 100 mmol/L (98-107); GLUCOSE 98 mg/dL (75-110); PHOSPHORUS 3.4 mg/dL (2.5-4.5); POTASSIUM 4.3 mmol/L (3.6-5.0); TOTAL PROTEIN 6.9 g/dL (6.3-8.2)
[2019-07-30 06:38] LABS: ABSOLUTE LYMPHOCYTES# (MANUAL) 3.4 10^3/uL (0.5-4.7); ABSOLUTE MONOCYTES # (MANUAL) 1.3 10^3/uL (0.1-1.4); BASOPHILS % (MANUAL) 0 % (0-2); EOSINOPHILS % (MANUAL) 0 % (0-6); LYMPHOCYTES % (MANUAL) 29 % (13-45); MONOCYTES % (MANUAL) 11 % (3-13); SEGMENTED NEUTROPHILS % (MAN) 60 % (42-78); TOTAL CELLS COUNTED 100
[2019-07-30 06:45] LABS: ANISOCYTOSIS 2+; BURR CELLS SLIGHT; TARGET CELLS 1+
[2019-07-30 06:46] LABS: PLATELET COMMENT ADEQUATE
[2019-07-30] MEDS: IPRATROPIUM/ALBUTEROL 0.5-2.5 MG/3 ML AMPUL NEB SCH ×3 (07:36→19:49)
[2019-07-30] MEDS: FERROUS SULFATE 325 MG TABLET PO SCH ×2 (10:31→17:10)
[2019-07-30] MEDS: MULTIVIT-STRESS FORMULA/ZINC TABLET PO SCH (10:31)
[2019-07-30] MEDS: CYANOCOBALAMIN (VITAMIN B-12) 1,000 MCG TABLET PO SCH (10:31)
[2019-07-30] MEDS: NICOTINE 21 MG/24 HR PATCH.TD24 TD SCH (10:31)
[2019-07-30] MEDS: FAMOTIDINE 20 MG TABLET PO SCH ×2 (10:31→21:30)
[2019-07-30] MEDS: DOCUSATE SODIUM 100 MG CAPSULE PO SCH ×2 (10:32→17:10)
[2019-07-30] MEDS: FUROSEMIDE 20 MG TABLET PO SCH (10:32)
[2019-07-30] MEDS: LORATADINE 10 MG TABLET PO SCH (10:32)
[2019-07-30] MEDS: CHOLECALCIFEROL (D3) 1,000 UNIT (25 MCG) TABLET PO SCH (10:32)
[2019-07-30] MEDS: THIAMINE HCL 100 MG TABLET PO SCH (10:32)
[2019-07-30] MEDS: FOLIC ACID 1 MG TABLET PO SCH (10:32)
[2019-07-30] MEDS: MIDODRINE HCL 5 MG TABLET PO SCH ×3 (10:33→17:10)
[2019-07-30] MEDS: SALMETEROL XINAFOATE DISKUS 50 MCG/1 DOSE 28 DOSE IH SCH ×2 (10:33→21:28)
[2019-07-30] MEDS: FLUTICASONE/VILANTEROL 200-25 MCG/DOSE IH SCH (10:33)
[2019-07-30] MEDS: TIOTROPIUM BROMIDE DPI 5 CAP/KIT (18 MCG/CAP) IH SCH (10:36)
[2019-07-30] MEDS: ACETAMINOPHEN 325 MG TABLET PO PRN (11:36)
--- NOTE | 2019-07-30 14:12 | PDOC PROGRESS REPORT ---
Subjective Progress Note for:: 07/30/19 Subjective:: The patient is complaining about the tri-cath in his right groin. His permacath was used for dialysis yesterday. He also reports that the edema in his legs is improved. He is having pain in his right foot but this is expected due to the multiple surgeries. Reason For Visit: CELLULITIS Physical Exam Vital Signs: Temp Pulse Resp BP Pulse Ox 98.1 F 93 20 121/83 97 07/30/19 10:47 07/30/19 10:47 07/30/19 10:47 07/30/19 10:47 07/30/19 10:47 Intake & Output 07/29/19 07/30/19 07/31/19 06:59 06:59 06:59 Intake Total 1700 1246 Output Total 2225 2840 Balance -525 -1594 Weight 124.3 kg 123.4 kg General appearance: PRESENT: cooperative, mild distress, morbidly obese, well- developed Head exam: PRESENT: atraumatic, normocephalic Eye exam: PRESENT: conjunctiva pink, EOMI. ABSENT: scleral icterus Ear exam: PRESENT: normal external ear exam. ABSENT: bleeding, drainage Mouth exam: PRESENT: moist, tongue midline Respiratory exam: PRESENT: clear to auscultation lui, symmetrical, unlabored. ABSENT: rales, rhonchi, tachypnea, wheezes Cardiovascular exam: PRESENT: RRR, +S1, +S2 GI/Abdominal exam: PRESENT: normal bowel sounds, soft. ABSENT: distended, guarding, tenderness Rectal exam: PRESENT: deferred Gentrourinary exam: ABSENT: indwelling catheter Extremities exam: PRESENT: pedal edema - Trace, other - Bulky dressing right foot. ABSENT: joint swelling Neurological exam: PRESENT: alert, awake, oriented to person, oriented to place, oriented to time, oriented to situation, CN II-XII grossly intact Psychiatric exam: PRESENT: appropriate affect. ABSENT: agitated, anxious Focused psych exam: ABSENT: delusional, restlessness Results Laboratory Results: 07/30/19 05:19 07/30/19 05:19 07/30/19 07/30/19 05: 05:19 WBC 11.6 H RBC 3.02 L Hgb 8.6 L Hct 26.7 L MCV 88 MCH 28.4 MCHC 32.2 RDW 20.1 H Plt Count 197 Seg Neutrophils % Not Reportable Sodium 137.1 Potassium 4.3 Chloride 100 Carbon Dioxide 31 H Anion Gap 6 BUN 29 H Creatinine 4.02 H Est GFR ( Amer) 18 L Glucose 98 Calcium 8.5 Phosphorus 3.4 Magnesium 1.9 Total Bilirubin 0.4 AST 31 Alkaline Phosphatase 82 Total Protein 6.9 Albumin 2.7 L 07/11/19 15:20 NT-Pro-B Natriuret Pep 372 Impressions: Chest X-Ray 07/11/19 00:00 IMPRESSION: Bibasilar airspace disease. Foot X-Ray 07/11/19 15:38 IMPRESSION: No aggressive bony demineralization or periosteal new bone worrisome for osteomyelitis. Profound edema and skin thickening over both the right and left dorsal foot Renal Ultrasound 07/17/19 00:00 IMPRESSION: Normal study. KUB X-Ray 07/25/19 00:00 IMPRESSION: Right femoral venous dialysis catheter tip over the right sacrum. Central Venous Line 07/29/19 00:00 IMPRESSION: IMAGE(S) OBTAINED DURING PROCEDURE. Assessment and Plan - Diagnosis (1) Acute and chronic respiratory failure with hypoxia Is this a current diagnosis for this admission?: Yes Plan: 07/30/2019-COPD is improved. Patient appears back at his baseline. We will continue his current regimen. They can likely taper back to inhaler therapy while at the skilled facility. (2) CARMELA (acute kidney injury) Is this a current diagnosis for this admission?: Yes Plan: 07/30/2019-the patient reports that he is making urine. His urine output was over 1 L yesterday. If this keeps up he will likely be able to stop h emodialysis soon. This was an acute injury from vancomycin toxicity. Patient will have outpatient dialysis and follow-up with nephrology. (3) Bilateral cellulitis of lower leg Is this a current diagnosis for this admission?: Yes Plan: 07/30/2019-the patient is at risk because of his ulcerations and edema. He also is likely to have recurrent stasis dermatitis. Antibiotics have been discontinued at this point. No further need for antibiotics at this time. Continue compression therapy as well (4) Stasis ulcer Qualifiers: Venous stasis ulcer site: ankle Varicose vein presence: unspecified whether present Laterality: left Is this a current diagnosis for this admission?: Yes Plan: 07/30/2019-continued wound care. It is always difficult to heal stasis ulcers in morbidly obese patients with marked lower extremity edema. He will need ongoing compression therapy and follow-up visits with the wound care center. (5) Anemia Qualifiers: Anemia type: iron deficiency Is this a current diagnosis for this admission?: Yes Plan: 07/30/2019-continue iron supplementation and monitor hemoglobin. (6) COPD (chronic obstructive pulmonary disease) Qualifiers: COPD type: chronic bronchitis Chronic bronchitis type: unspecified Qualified Code(s): J42 - Unspecified chronic bronchitis Is this a current diagnosis for this admission?: No Plan: 07/30/2019-ongoing inhaler therapy. Bronchitis resolved. (7) GERD (gastroesophageal reflux disease) Qualifiers: Esophagitis presence: esophagitis presence not specified Qualified Code(s): K21.9 - Gastro-esophageal reflux disease without esophagitis Is this a current diagnosis for this admission?: Yes Plan: 07/30/2019-continue famotidine (8) Obesity, Class III, BMI 40-49.9 (morbid obesity) Is this a current diagnosis for this admission?: Yes Plan: 07/30/2019-the patient would benefit from aggressive diet specifically for weight loss. (9) History of DVT (deep vein thrombosis) Is this a current diagnosis for this admission?: Yes Plan: 07/30/2019-continue apixaban (10) RONIT (obstructive sleep apnea) Is this a current diagnosis for this admission?: Yes Plan: 07/30/2019-the patient has been wearing his CPAP at night. He was not able to be discharged today as the receiving facility had to order a CPAP unit for him. (11) Bleeding Is this a current diagnosis for this admission?: Yes Plan: 07/30/2019-I was called to the bedside by the nurse as the patient had dislodged most of his try cath from his right groin. There was significant bleeding. The nurse immediately applied direct pressure. Because the patient has his permacath in place I used a suture removal kit to cut all of the sutures holding the tubing in place. The collar sutures have been dislodged from the pressure. The last several centimeters of tubing were removed from the patient's groin. Direct pressure was held for approximately 7 to 8 minutes to achieve hemostasis (the patient is on apixaban). Once hemostasis was achieved the nurse was able to apply a dry sterile dressing to the groin as I held the tissue fold open. There was no further evidence of bleeding. - Time Time Spent with patient: 25-34 minutes Medications reviewed and adjusted accordingly: Yes Anticipated discharge: SNF Within: within 24 hours
[2019-07-30] MEDS: MELATONIN 5 MG TABLET PO SCH (21:29)
[2019-07-30] MEDS: TRAZODONE HCL 50 MG TABLET PO SCH (21:29)
[2019-07-30] MEDS: ATORVASTATIN CALCIUM 40 MG TABLET PO SCH (21:29)
[2019-07-30] MEDS: MONTELUKAST SODIUM 10 MG TABLET PO SCH (21:30)
[2019-07-31] MEDS ORDERED: NORMAL SALINE 1000 ML 1,000 ML IV PRN (05:00)
[2019-07-31] MEDS ORDERED: HEPARIN SOD (PORCINE) 1,000 UNIT/ML 10 ML VIAL IV PRN (05:00)
[2019-07-31] MEDS: PREGABALIN 75 MG CAPSULE PO SCH (06:02)
[2019-07-31 06:49] LABS: HEMATOCRIT 28.3 % (37.9-51.0); HEMOGLOBIN 9.2 g/dL (13.5-17.0); MEAN CORPUSCULAR HEMOGLOBIN 28.5 pg (27.0-33.4); MEAN CORPUSCULAR HGB CONC 32.4 g/dL (32.0-36.0); MEAN CORPUSCULAR VOLUME 88 fl (80-97); PLATELET COUNT 218 10^3/uL (150-450); RED BLOOD COUNT 3.23 10^6/uL (4.35-5.55); RED CELL DISTRIBUTION WIDTH 20.1 % (11.5-14.0)
[2019-07-31 07:11] LABS: ANION GAP 8 (5-19); BLOOD UREA NITROGEN 31 mg/dL (7-20); CALCIUM 8.9 mg/dL (8.4-10.2); CARBON DIOXIDE 30 mmol/L (22-30); CHLORIDE 100 mmol/L (98-107); GLUCOSE 88 mg/dL (75-110)
[2019-07-31 07:13] LABS: ABSOLUTE LYMPHOCYTES# (MANUAL) 3.3 10^3/uL (0.5-4.7); ABSOLUTE MONOCYTES # (MANUAL) 1.4 10^3/uL (0.1-1.4); BAND NEUTROPHILS % (MANUAL) 3 % (3-5); BASOPHILS % (MANUAL) 0 % (0-2); EOSINOPHILS % (MANUAL) 2 % (0-6); LYMPHOCYTES % (MANUAL) 25 % (13-45); MONOCYTES % (MANUAL) 11 % (3-13); SEGMENTED NEUTROPHILS % (MAN) 59 % (42-78); TOTAL CELLS COUNTED 100
[2019-07-31 07:14] LABS: ANISOCYTOSIS 2+; HOWELL-JOLLY BODIES PRESENT; PLATELET COMMENT ADEQUATE; POIKILOCYTOSIS 1+; POLYCHROMASIA SLIGHT; TARGET CELLS 1+
[2019-07-31] MEDS: IPRATROPIUM/ALBUTEROL 0.5-2.5 MG/3 ML AMPUL NEB SCH ×2 (07:39→13:53)
[2019-07-31] MEDS: MIDODRINE HCL 5 MG TABLET PO SCH ×2 (08:31→13:02)
[2019-07-31] MEDS: FLUTICASONE/VILANTEROL 200-25 MCG/DOSE IH SCH (09:52)
[2019-07-31] MEDS: LORATADINE 10 MG TABLET PO SCH (09:52)
[2019-07-31] MEDS: CHOLECALCIFEROL (D3) 1,000 UNIT (25 MCG) TABLET PO SCH (09:53)
[2019-07-31] MEDS: DOCUSATE SODIUM 100 MG CAPSULE PO SCH (09:53)
[2019-07-31] MEDS: FAMOTIDINE 20 MG TABLET PO SCH (09:53)
[2019-07-31] MEDS: FUROSEMIDE 20 MG TABLET PO SCH (09:53)
[2019-07-31] MEDS: FOLIC ACID 1 MG TABLET PO SCH (09:53)
[2019-07-31] MEDS: FERROUS SULFATE 325 MG TABLET PO SCH (09:53)
[2019-07-31] MEDS: NICOTINE 21 MG/24 HR PATCH.TD24 TD SCH (09:53)
[2019-07-31] MEDS: CYANOCOBALAMIN (VITAMIN B-12) 1,000 MCG TABLET PO SCH (09:53)
[2019-07-31] MEDS: THIAMINE HCL 100 MG TABLET PO SCH (09:53)
[2019-07-31] MEDS: SALMETEROL XINAFOATE DISKUS 50 MCG/1 DOSE 28 DOSE IH SCH (09:53)
[2019-07-31] MEDS: TIOTROPIUM BROMIDE DPI 5 CAP/KIT (18 MCG/CAP) IH SCH (09:53)
[2019-07-31] MEDS: MULTIVIT-STRESS FORMULA/ZINC TABLET PO SCH (09:54)
--- NOTE | 2019-07-31 13:23 | PDOC TRANSFER SUMMARY ---
General - Admit/Disc Date/PCP Admission Date/Primary Care Provider: 07/11/19 18:11 DAVID WARNER MD Discharge Date: 07/31/19 - Discharge Diagnosis (1) Acute and chronic respiratory failure with hypoxia Is this a current diagnosis for this admission?: Yes Summary: The patient has a history of COPD. Upon presentation he required nebulizer treatments. He is on home oxygen therapy. He will discharge on his home regimen including Advair and Spiriva with nebulizer treatments as needed. (2) CARMELA (acute kidney injury) Is this a current diagnosis for this admission?: Yes Summary: The patient suffered acute kidney injury secondary to supratherapeutic vancomycin levels. He is making urine and his urine output should increase. If this occurs and his renal function improves he would be able to come off of hemo dialysis. At this time he has permacath in his right chest and is set up for outpatient hemodialysis on Wednesdays and Fridays. (3) Bilateral cellulitis of lower leg Is this a current diagnosis for this admission?: Yes Summary: The patient has chronic venous insufficiency stasis dermatitis. He has a stasis ulcer as well. He was on antibiotic therapy for presumed bilateral cellulitis. The vancomycin reach toxic levels and his vancomycin and Zosyn were discontinued. He has completed antibiotic therapy. He would benefit from ongoing compression to reduce episodes of stasis dermatitis which often can be confused with cellulitis. (4) Stasis ulcer Is this a current diagnosis for this admission?: Yes Summary: Stasis ulcer on the left malleolus. Continue conservative care with dressing changes daily. The dressing changes have been Xeroform gauze secured with Kerlix and Kodak wrap for compression. (5) Anemia Is this a current diagnosis for this admission?: Yes Summary: His hemoglobin has been stable at approximately 9.0. Continue supplements and monitor hemoglobin levels. Anemia likely due to chronic illness and acute kidney injury. There is no evidence of blood loss. (6) COPD (chronic obstructive pulmonary disease) Is this a current diagnosis for this admission?: Yes Summary: COPD has been stable. Return to previous inhaler regimen as well as oxygen supplementation. Nebulizer treatments as needed. (7) GERD (gastroesophageal reflux disease) Is this a current diagnosis for this admission?: Yes Summary: Continue famotidine (8) Obesity, Class III, BMI 40-49.9 (morbid obesity) Is this a current diagnosis for this admission?: Yes Summary: The patient would benefit from aggressive diet for weight loss management. (9) History of DVT (deep vein thrombosis) Is this a current diagnosis for this admission?: Yes Summary: Continue apixaban. (10) RONIT (obstructive sleep apnea) Is this a current diagnosis for this admission?: Yes Summary: Continue CPAP at current settings. Adjust if necessary. (11) Bleeding Is this a current diagnosis for this admission?: Yes Summary: Monitor the right groin. Try dialysis catheter was removed yesterday. The pat ient in fact dislodges and there was bleeding from the groin. We infect remove the catheter and applied pressure for approximately 8 to 10 minutes. Hemostasis was achieved. His dressing can be removed in several days. No evidence of bleeding today. - Additional Information Resuscitation Status: Full Code Discharge Diet: Cardiac Discharge Activity: Activity As Tolerated Home Medications: Atorvastatin Calcium 40 mg PO DAILY 06/07/18 Cholecalciferol (Vitamin D3) [Vitamin D3 5000 unit Capsule] 5,000 unit PO DAILY 06/07/18 Docusate Sodium [Colace] 100 mg PO BID 06/07/18 Fluticasone/Salmeterol [Advair 250-50 Diskus 28 dose] 1 inh IH Q12 06/07/18 Folic Acid [Folvite 1 mg Tablet] 1 mg PO DAILY 06/07/18 Furosemide [Lasix 20 mg Tablet] 20 mg PO BID 06/07/18 Loratadine [Claritin] 10 mg PO DAILY 06/07/18 Melatonin 10 mg PO QHS 06/07/18 Mometasone Furoate [Nasonex] 1 spray NS Q12 06/07/18 Montelukast Sodium [Singulair 10 mg Tablet] 10 mg PO QHS 06/07/18 Multivitamin [Multiple Vitamins] 1 each PO DAILY 06/07/18 Naloxegol Oxalate [Movantik] 25 mg PO DAILY 06/07/18 Omeprazole 40 mg PO DAILY 06/07/18 Oxycodone HCl [Oxycodone HCl 10 MG Tablet] 10 mg PO Q6 06/07/18 Pregabalin [Lyrica] 150 mg PO Q8 06/07/18 Rivaroxaban [Xarelto] 20 mg PO DAILY 06/07/18 Tiotropium Onyx [Spiriva Respimat] 2 puff IH DAILY 06/07/18 Tramadol HCl [Ultram] 50 mg PO TIDP PRN 06/07/18 Trazodone HCl [Desyrel] 300 mg PO QHS 06/07/18 Vitamin B Complex [Vitamin B Complex-100] 1 each PO DAILY 06/07/18 Albuterol Sulfate [Proair Hfa Inhalation Aerosol 8.5 gm Mdi] 1 puff IH Q4 PRN 0 07/11/19 Albuterol Sulfate [Ventolin 0.083% Neb 2.5 mg/3 ml Ampul] 1 vial NEB TID 07/11/19 Cyanocobalamin (Vitamin B-12) [B-12] 500 mcg PO DAILY 07/11/19 Hydroxyzine HCl [Atarax 10 mg Tablet] 10 mg PO TID PRN 07/11/19 Ipratropium Onyx [Atrovent 0.02% Neb 0.5 Mg/2.5 Ml Vial.Neb] 0.5 mg IH TID 0 07/11/19 Nystatin 1 each TP DAILY 07/11/19 History of Present Illness Admission Date/PCP: 07/11/19 18:11 DAVID WARNER MD Patient complains of: Increased leg pain and purulent drainage from the left medial malleolus ulcer History of Present Illness: ANALY NEVAREZ is a 64 year old male with a complex medical history presented with worsening of left leg pain and redness. He has a chronic stasis ulcer on the medial malleolus that exhibited purulent drainage. He was referred to the hospital service for IV antibiotics and surgical treatment of the ulcer. The patient was seeing Dr. Anibal Cruz at the wound care center however he had not had an appointment in the month prior to presentation to the emergency department. Hospital Course Hospital Course: The patient had a complicated hospital course. Please also see above. While on antibiotic therapy his vancomycin level became toxic. This caused acute kidney injury. He required hemodialysis and still receives hemodialysis on Monday, Monday and Monday. He is making urine (at least 1 L/day) and his labs are improving. Hopefully it is only a matter of time before his kidneys recover and he can come off of hemodialysis. His leg ulcer has improved significantly. He is no longer on antibiotics. Because of his morbid obesity and chronic venous insufficiency he requires ongoing compression therapy and wound care. Physical Exam Vital Signs: Temp Pulse Resp BP Pulse Ox 98.2 F 93 12 127/75 H 98 07/31/19 09:00 07/31/19 09:00 07/31/19 09:00 07/31/19 09:00 07/31/19 09:00 Intake & Output 07/30/19 07/31/19 08/01/19 06:59 06:59 06:59 Intake Total 1246 1548 Output Total 2840 1000 Balance -1594 1548 -1000 Weight 123.4 kg 124.6 kg General appearance: PRESENT: no acute distress, cooperative, morbidly obese, well-developed Head exam: PRESENT: atraumatic, normocephalic Eye exam: PRESENT: conjunctiva pale. ABSENT: scleral icterus Ear exam: PRESENT: normal external ear exam. ABSENT: bleeding, drainage Mouth exam: PRESENT: moist, tongue midline Respiratory exam: PRESENT: clear to auscultation lui, symmetrical, unlabored. ABSENT: rales, rhonchi, tachypnea, wheezes Cardiovascular exam: PRESENT: RRR, +S1, +S2 GI/Abdominal exam: PRESENT: soft, other - Protuberant abdomen. ABSENT: distended, guarding, tenderness Extremities exam: PRESENT: +2 edema - Chronic lower extremity edema, other - No bleeding from the right groin Neurological exam: PRESENT: alert, awake, oriented to person, oriented to place, oriented to time, oriented to situation, CN II-XII grossly intact Psychiatric exam: PRESENT: appropriate affect. ABSENT: agitated, anxious Focused psych exam: ABSENT: delusional, restlessness Results Laboratory Results: 07/31/19 06:12 07/31/19 06:12 07/31/19 07/31/19 06:12 06:12 WBC 13.0 H RBC 3.23 L Hgb 9.2 L Hct 28.3 L MCV 88 MCH 28.5 MCHC 32.4 RDW 20.1 H Plt Count 218 Seg Neutrophils % Not Reportable Sodium 137.5 Potassium 4.0 Chloride 100 Carbon Dioxide 30 Anion Gap 8 BUN 31 H Creatinine 4.12 H Est GFR ( Amer) 18 L Glucose 88 Calcium 8.9 07/11/19 15:20 NT-Pro-B Natriuret Pep 372 Impressions: Chest X-Ray 07/11/19 00:00 IMPRESSION: Bibasilar airspace disease. Foot X-Ray 07/11/19 15:38 IMPRESSION: No aggressive bony demineralization or periosteal new bone worrisome for osteomyelitis. Profound edema and skin thickening over both the right and left dorsal foot Renal Ultrasound 07/17/19 00:00 IMPRESSION: Normal study. KUB X-Ray 07/25/19 00:00 IMPRESSION: Right femoral venous dialysis catheter tip over the right sacrum. Central Venous Line 07/29/19 00:00 IMPRESSION: IMAGE(S) OBTAINED DURING PROCEDURE. Transfer Plan - Disposition Transfer Plan: Transfer to [facility] with outpatient luis enrique sis. - Time Spent with Patient Time spent with patient: Greater than 30 Minutes Qualifiers - * PATIENT BEING DISCHARGED WITH ANY OF THE FOLLOWING DIAGNOSIS: No Acute Heart Failure - Is this a Heart Failure Patient?: No Plan Discharge Plan: As above Time Spent: Greater than 30 Minutes
--- NOTE | 2019-07-31 14:04 | PDOC PROGRESS REPORT ---
Subjective Progress Note for:: 07/31/19 Subjective:: I am seeing the patient during initiation of dialysis this morning. He is doing well. He does not have any complaints. He had an episode of bleeding over his temporary trialysis right inguinal catheter yesterday but is currently resolved and the catheter is already removed. Patient is scheduled to be discharged to assisted facility in [place] and to have continued dialysis at [facility] dialysis unit. Reason For Visit: CELLULITIS Physical Exam Vital Signs: Temp Pulse Resp BP Pulse Ox 98.2 F 93 12 127/75 H 98 07/31/19 08:01 07/31/19 08:01 07/31/19 08:01 07/31/19 08:01 07/31/19 08:01 Intake & Output 07/30/19 07/31/19 08/01/19 06:59 06:59 06:59 Intake Total 1246 1548 Output Total 2840 Balance -1594 1548 Weight 123.4 kg 124.6 kg Vitals during dialysis: Blood pressure 132/85, heart rate of 95, blood flow rate of 320 mL/min and dialysate flow rate of 600 mL/min. Exam: General appearance: PRESENT: no acute distress, cooperative, well-developed, well-nourished Head exam: PRESENT: atraumatic, normocephalic Eye exam: PRESENT: conjunctiva slightly pale, PERRLA. ABSENT: scleral icterus Neck exam: ABSENT: JVD Respiratory exam: PRESENT: Normal breath sounds. ABSENT: crackles, rales, rhonchi, unlabored, wheezes Cardiovascular exam: PRESENT: Regular rate rhythm -+S1, +S2. ABSENT: diastolic murmur, systolic murmur GI/Abdominal exam: PRESENT: normal bowel sounds, soft. ABSENT: guarding, mass, tenderness Extremities exam: Chronic grade 1 bilateral lower extremity pitting edema Neurological exam: PRESENT: alert, awake, oriented to person, place and time. Skin exam: PRESENT: dry, warm, Cardiovascular exam: PRESENT: +S1, +S2 GI/Abdominal exam: PRESENT: normal bowel sounds, soft. ABSENT: organomegaly, tenderness Results Laboratory Results: 07/31/19 06:12 07/31/19 06:12 07/31/19 07/31/19 06:12 06:12 WBC 13.0 H RBC 3.23 L Hgb 9.2 L Hct 28.3 L MCV 88 MCH 28.5 MCHC 32.4 RDW 20.1 H Plt Count 218 Seg Neutrophils % Not Reportable Sodium 137.5 Potassium 4.0 Chloride 100 Carbon Dioxide 30 Anion Gap 8 BUN 31 H Creatinine 4.12 H Est GFR ( Amer) 18 L Glucose 88 Calcium 8.9 07/11/19 15:20 NT-Pro-B Natriuret Pep 372 Impressions: Chest X-Ray 07/11/19 00:00 IMPRESSION: Bibasilar airspace disease. Foot X-Ray 07/11/19 15:38 IMPRESSION: No aggressive bony demineralization or periosteal new bone wor risome for osteomyelitis. Profound edema and skin thickening over both the right and left dorsal foot Renal Ultrasound 07/17/19 00:00 IMPRESSION: Normal study. KUB X-Ray 07/25/19 00:00 IMPRESSION: Right femoral venous dialysis catheter tip over the right sacrum. Central Venous Line 07/29/19 00:00 IMPRESSION: IMAGE(S) OBTAINED DURING PROCEDURE. Assessment & Plan - Diagnosis (1) CARMELA (acute kidney injury) Is this a current diagnosis for this admission?: Yes Plan: Patient is still nonoliguric. CARMELA is due to ATN due to vancomycin toxicity and the combination of IV vancomycin and Zosyn. Status post right IJ PermCath placement on 07/[address] Cruz. We will do dialysis today for 3 hours, using the patient's right IJ PermCath, with 3 potassium bath and 30 bicarb, blood flow rate of 300-350 mL per minute, dialysate flow rate of 600 mL per minute, ultrafiltration 1 L as tolerated, no heparin and no Procrit. Patient will be monitored throughout dialysis treatment. From nephrology standpoint the patient is stable enough to be discharge to assisted facility with continued dialysis due to his CARMELA. Patient needs to be reevaluated in the next few weeks to see if there is any recovery of kidney function. (2) Anemia Qualifiers: Anemia type: iron deficiency Is this a current diagnosis for this admission?: Yes Plan: Continue oral ferrous sulfate but increase the dose to twice daily upon discharge. (3) Bilateral cellulitis of lower leg Is this a current diagnosis for this admission?: Yes (4) Stasis ulcer Qualifiers: Venous stasis ulcer site: ankle Varicose vein presence: unspecified whether present Laterality: left Is this a current diagnosis for this admission?: Yes (5) Alcohol dependence Is this a current diagnosis for this admission?: Yes (6) RONIT (obstructive sleep apnea) Is this a current diagnosis for this admission?: Yes - Time Time with patient: 15-25 minutes
[2019-07-31 16:42] VITALS: BP 118/61
== END 2019-07-31 16:43 | DRG 570 ==
LOC: ER 14:58 → EH 18:11 → 5 20:30
PROVIDERS: ADMIT Internal Medicine; ATTEND Internal Medicine
PROC: 5A09557 Assistance with Respiratory Ventilation, Greater than 96 Consecutive Hours, Continuous Positive Airway Pressure (ICD-10-PCS; 2019-07-11)
PROC: 0JBR0ZZ Excision of Left Foot Subcutaneous Tissue and Fascia, Open Approach (ICD-10-PCS; principal; 2019-07-12)
PROC: 06HM33Z Insertion of Infusion Device into Right Femoral Vein, Percutaneous Approach (ICD-10-PCS; 2019-07-19)
PROC: 5A1D70Z Performance of Urinary Filtration, Intermittent, Less than 6 Hours Per Day (ICD-10-PCS; 2019-07-20)
PROC: 5A1D70Z Performance of Urinary Filtration, Intermittent, Less than 6 Hours Per Day (ICD-10-PCS; 2019-07-22)
PROC: 5A1D70Z Performance of Urinary Filtration, Intermittent, Less than 6 Hours Per Day (ICD-10-PCS; 2019-07-24)
PROC: 5A1D70Z Performance of Urinary Filtration, Intermittent, Less than 6 Hours Per Day (ICD-10-PCS; 2019-07-26)
PROC: 02H633Z Insertion of Infusion Device into Right Atrium, Percutaneous Approach (ICD-10-PCS; 2019-07-29)
PROC: B244ZZZ Ultrasonography of Right Heart (ICD-10-PCS; 2019-07-29)
PROC: B30 Imaging, Upper Arteries, Plain Radiography (ICD-10-PCS; 2019-07-29)
PROC: 5A1D70Z Performance of Urinary Filtration, Intermittent, Less than 6 Hours Per Day (ICD-10-PCS; 2019-07-29)
PROC: 5A1D70Z Performance of Urinary Filtration, Intermittent, Less than 6 Hours Per Day (ICD-10-PCS; 2019-07-31)
DX: L03.116 Cellulitis of left lower limb (principal); N17.0 Acute kidney failure with tubular necrosis; J96.21 Acute and chronic respiratory failure with hypoxia; Z68.41 Body mass index [BMI] 40.0-44.9, adult; L97.329 Non-pressure chronic ulcer of left ankle with unspecified severity; I83.023 Varicose veins of left lower extremity with ulcer of ankle; D63.8 Anemia in other chronic diseases classified elsewhere; K21.9 Gastro-esophageal reflux disease without esophagitis; E66.01 Morbid (severe) obesity due to excess calories; G47.33 Obstructive sleep apnea (adult) (pediatric); I25.10 Atherosclerotic heart disease of native coronary artery without angina pectoris; K44.9 Diaphragmatic hernia without obstruction or gangrene; E78.5 Hyperlipidemia, unspecified; F17.210 Nicotine dependence, cigarettes, uncomplicated; E87.6 Hypokalemia; K70.30 Alcoholic cirrhosis of liver without ascites; T36.8X5A Adverse effect of other systemic antibiotics, initial encounter; E83.41 Hypermagnesemia; J42 Unspecified chronic bronchitis; I95.9 Hypotension, unspecified; L03.115 Cellulitis of right lower limb; I25.2 Old myocardial infarction; Z79.891 Long term (current) use of opiate analgesic; Z99.81 Dependence on supplemental oxygen; Z86.718 Personal history of other venous thrombosis and embolism; Z79.899 Other long term (current) drug therapy; Z86.711 Personal history of pulmonary embolism; Z86.14 Personal history of Methicillin resistant Staphylococcus aureus infection; Z88.6 Allergy status to analgesic agent; Z88.1 Allergy status to other antibiotic agents; Z79.01 Long term (current) use of anticoagulants; Z95.5 Presence of coronary angioplasty implant and graft; Z82.49 Family history of ischemic heart disease and other diseases of the circulatory system
CPT/HCPCS: 36415; 36558; 71045; 74018; 76770; 76937; 77001; 80048; 80053; 80202; 81001; 82272; 82533; 82607; 82728; 82746; 82803; 82962; 83036; 83540; 83550; 83605; 83735; 83880; 83930; 84100; 84165; 84443; 85025; 85027; 85045; 85610; 85652; 85730; 86140; 86317; 86704; 87040; 87086; 87340; 87522; 93005; 93010; 93970; 94660; 99285; C1713; C1752; J0690; J1450; J1644; J1940; J2250; J2543; J3010; J3370; J3475; J3480; J3490; J7030; J7050; J7060; J7512; J7620; Q9967

== ENCOUNTER → 2019-08-30 | Outpatient (CLI) | payer MEDICARE ==
[2019-08-30 11:35] LABS: APPEARANCE,URINE CLEAR; BILIRUBIN,URINE NEGATIVE (NEGATIVE); COLOR,URINE YELLOW; GLUCOSE, URINE NEGATIVE (NEGATIVE); KETONES,URINE NEGATIVE (NEGATIVE); LEUKOCYTE ESTERASE,URINE NEGATIVE (NEGATIVE); NITRITE,URINE NEGATIVE (NEGATIVE); PROTEIN,URINE NEGATIVE (NEGATIVE); URINE SPECIFIC GRAVITY 1.012; UROBILINOGEN,URINE NEGATIVE mg/dL (<2.0)
[2019-08-30 11:40] LABS: HEMATOCRIT 32.5 % (37.9-51.0); HEMOGLOBIN 10.4 g/dL (13.5-17.0); MEAN CORPUSCULAR HEMOGLOBIN 27.7 pg (27.0-33.4); MEAN CORPUSCULAR VOLUME 87 fl (80-97); PLATELET COUNT 273 10^3/uL (150-450); RED BLOOD COUNT 3.76 10^6/uL (4.35-5.55); RED CELL DISTRIBUTION WIDTH 18.4 % (11.5-14.0)
[2019-08-30 11:50] LABS: ANION GAP 10 (5-19); BLOOD UREA NITROGEN 28 mg/dL (7-20); CALCIUM 10.2 mg/dL (8.4-10.2); CARBON DIOXIDE 28 mmol/L (22-30); CHLORIDE 100 mmol/L (98-107); GLUCOSE 121 mg/dL (75-110); POTASSIUM 4.9 mmol/L (3.6-5.0)
[2019-08-30 12:03] LABS: ABSOLUTE LYMPHOCYTES# (MANUAL) 2.2 10^3/uL (0.5-4.7); ABSOLUTE MONOCYTES # (MANUAL) 0.7 10^3/uL (0.1-1.4); BASOPHILS % (MANUAL) 0 % (0-2); EOSINOPHILS % (MANUAL) 0 % (0-6); LYMPHOCYTES % (MANUAL) 18 % (13-45); MONOCYTES % (MANUAL) 6 % (3-13); NUCLEATED RED BLOOD CELLS 3 /100 WBC (0); SEGMENTED NEUTROPHILS % (MAN) 76 % (42-78); TOTAL CELLS COUNTED 100
[2019-08-30 12:05] LABS: ANISOCYTOSIS 1+; TARGET CELLS 1+
[2019-08-30 12:06] LABS: PLATELET COMMENT ADEQUATE
== END ==
LOC: OD 10:49
PROVIDERS: ATTEND Physician Assistant Medical
DX: N18.9 Chronic kidney disease, unspecified (principal)
CPT/HCPCS: 36415; 80048; 81001; 85025

== ENCOUNTER → 2019-09-13 | Outpatient (CLI) | payer MEDICARE ==
[2019-09-13 11:28] LABS: MEAN CORPUSCULAR HEMOGLOBIN 28.6 pg (27.0-33.4)
[2019-09-13 11:33] LABS: ANION GAP 9 (5-19); BLOOD UREA NITROGEN 15 mg/dL (7-20); CALCIUM 9.3 mg/dL (8.4-10.2); CARBON DIOXIDE 25 mmol/L (22-30); CHLORIDE 99 mmol/L (98-107); GLUCOSE 110 mg/dL (75-110); PHOSPHORUS 4.4 mg/dL (2.5-4.5); POTASSIUM 5.2 mmol/L (3.6-5.0)
[2019-09-13 11:34] LABS: HEMATOCRIT 31.6 % (37.9-51.0); HEMOGLOBIN 10.3 g/dL (13.5-17.0); MEAN CORPUSCULAR HGB CONC 32.6 g/dL (32.0-36.0); MEAN CORPUSCULAR VOLUME 88 fl (80-97); PLATELET COUNT 194 10^3/uL (150-450); RED CELL DISTRIBUTION WIDTH 18.9 % (11.5-14.0); WHITE BLOOD COUNT 9.1 10^3/uL (4.0-10.5)
[2019-09-13 11:56] LABS: APPEARANCE,URINE CLEAR; BILIRUBIN,URINE NEGATIVE (NEGATIVE); COLOR,URINE YELLOW; GLUCOSE, URINE NEGATIVE (NEGATIVE); KETONES,URINE NEGATIVE (NEGATIVE); LEUKOCYTE ESTERASE,URINE TRACE (NEGATIVE); NITRITE,URINE NEGATIVE (NEGATIVE); PROTEIN,URINE NEGATIVE (NEGATIVE); URINE SPECIFIC GRAVITY 1.013; UROBILINOGEN,URINE NEGATIVE mg/dL (<2.0)
[2019-09-13 12:16] LABS: IRON(TIBC) < 10.1 ug/dL (49-181)
[2019-09-13 12:26] LABS: ABSOLUTE LYMPHOCYTES# (MANUAL) 3.3 10^3/uL (0.5-4.7); ABSOLUTE MONOCYTES # (MANUAL) 0.8 10^3/uL (0.1-1.4); BAND NEUTROPHILS % (MANUAL) 1 % (3-5); BASOPHILS % (MANUAL) 1 % (0-2); EOSINOPHILS % (MANUAL) 3 % (0-6); LYMPHOCYTES % (MANUAL) 34 % (13-45); MONOCYTES % (MANUAL) 9 % (3-13); NUCLEATED RED BLOOD CELLS 1 /100 WBC (0); SEGMENTED NEUTROPHILS % (MAN) 50 % (42-78); TOTAL CELLS COUNTED 100
[2019-09-13 12:29] LABS: ANISOCYTOSIS 2+; PLATELET CLUMPS PRESENT; PLATELET COMMENT ADEQUATE; POIKILOCYTOSIS SLIGHT; TARGET CELLS SLIGHT; TEAR DROP CELLS SLIGHT
== END ==
LOC: OD 10:44
PROVIDERS: ATTEND Physician Assistant Medical
DX: N17.9 Acute kidney failure, unspecified (principal); I11.0 Hypertensive heart disease with heart failure; I50.9 Heart failure, unspecified; R60.9 Edema, unspecified; D64.9 Anemia, unspecified
CPT/HCPCS: 36415; 80048; 81001; 82728; 83540; 83550; 83970; 84100; 85025

== ENCOUNTER → 2020-03-09 | Outpatient (CLI) | payer MEDICARE ==
--- NOTE | 2020-03-09 17:46 | RADIOLOGY REPORT (SQ) ---
EXAM DESCRIPTION: ARTERIAL LOWER EXTREM BILAT IMAGES COMPLETED DATE/TIME: 03/09/2020 12:04 pm REASON FOR STUDY: LT ANKLE ULCER L97.322 NON-PRESSURE CHRONIC ULCER OF LEFT ANKLE W FAT LAYER COMPARISON: None. TECHNIQUE: Dynamic and static leyva scale and color images acquired of the lower extremity arteries. Additional selected spectral images recorded. ABIs recorded. LIMITATIONS: None. FINDINGS: RIGHT LEG: ABIS: Normal, over 1.0. INFLOW ARTERIES: Normal, no obstruction evident. FEMORAL ARTERIES:Multiphasic waveforms. Normal, no velocity elevation to suggest focal stenosis. Norm al color Doppler evaluation. No aneurysm. POPLITEAL ARTERY:Multiphasic waveforms. Normal, no velocity elevation to suggest focal stenosis. Norm al color Doppler evaluation. No aneurysm. PATENT TIBIOPERONEAL TRUNK AND 3 VESSEL RUNOFF: Multi vessel generally triphasic runoff. Some blunti ng and change to biphasic morphology in the anterior tibial artery distally. TBI: Not performed. OTHER: No other significant finding. LEFT LEG: ABIS: Normal, over 1.0. INFLOW ARTERIES: Normal, no obstruction evident. FEMORAL ARTERIES:Multiphasic waveforms. Normal, no velocity elevation to suggest focal stenosis. Norm al color Doppler evaluation. No aneurysm. POPLITEAL ARTERY:Multiphasic waveforms. Normal, no velocity elevation to suggest focal stenosis. Norm al color Doppler evaluation. No aneurysm. PATENT TIBIOPERONEAL TRUNK AND 3 VESSEL RUNOFF: Multi vessel generally triphasic runoff. Dorsalis pe dis shows some blunting inflow with biphasic waveform. TBI: Not performed. OTHER: No other significant finding. IMPRESSION: 1. Mild infrapopliteal disease bilaterally. No focal hemodynamically significant stenosis appreciate d. COMMENT: [facility] NORMAL: Greater than 1.0 MINIMAL DISEASE: 0.9 to 1.0 CLAUDICATION: 0.5 to 0.9 SEVERE ARTERIAL DISEASE: Less than 0.5 [facility] NORMAL: Greater than 1.0 (1.2 If Heavy Calcifications) NORMAL TO MILD ISCHEMIA: 0.8 to 1.0 MODERATE ISCHEMIA: 0.4 to 0.8 SEVERE ISCHEMIA: Less than 0.4 TECHNICAL DOCUMENTATION: JOB ID: [id number] 2010 [employer]- All Rights Reserved Reading location - IP/workstation name: [email or web address]
== END ==
LOC: SP 07:39
PROVIDERS: ATTEND Nurse Practitioner Family
DX: L97.322 Non-pressure chronic ulcer of left ankle with fat layer exposed (principal)
CPT/HCPCS: 93922; 93925

== ENCOUNTER 2020-08-18 11:07 | Inpatient (IN) | payer MEDICARE ==
[2020-08-18 11:39] LABS: VENOUS BLOOD BASE EXCESS -4.9 mmol/L; VENOUS BLOOD HCO3 21.7 mmol/L (20-32); VENOUS BLOOD PCO2 46.1 mmHg (35-63); VENOUS BLOOD PH 7.29 (7.30-7.42)
[2020-08-18 11:47] LABS: INTERNATIONAL RATION (INR) 1.44; PROTHROMBIN TIME 17.7 SEC (11.4-15.4)
[2020-08-18 11:50] LABS: ABSOLUTE BASOPHILS # (AUTO) 0.1 10^3/uL (0.0-0.2); ABSOLUTE EOSINOPHILS # (AUTO) 0.1 10^3/uL (0.0-0.6); ABSOLUTE LYMPHOCYTES (AUTO) 2.9 10^3/uL (0.5-4.7); ABSOLUTE MONOCYTES (AUTO) 1.1 10^3/uL (0.1-1.4); ABSOLUTE NEUT (AUTO) 3.9 10^3/uL (1.7-8.2); BASOPHILS % (AUTO) 0.8 % (0-2); EOSINOPHILS % (AUTO) 1.4 % (0-6); HEMATOCRIT 32.2 % (37.9-51.0); HEMOGLOBIN 11.4 g/dL (13.5-17.0); LYMPHOCYTES % (AUTO) 36.4 % (13-45); MEAN CORPUSCULAR HEMOGLOBIN 34.4 pg (27.0-33.4); MEAN CORPUSCULAR HGB CONC 35.3 g/dL (32.0-36.0); MEAN CORPUSCULAR VOLUME 97 fl (80-97); MONOCYTES % (AUTO) 13.5 % (3-13); PLATELET COUNT 155 10^3/uL (150-450); RED BLOOD COUNT 3.32 10^6/uL (4.35-5.55); RED CELL DISTRIBUTION WIDTH 14.7 % (11.5-14.0); SEGMENTED NEUTROPHILS % (AUTO) 47.9 % (42-78); TOTAL CELLS COUNTED % (AUTO) 100 %; WHITE BLOOD COUNT 8.1 10^3/uL (4.0-10.5)
[2020-08-18] MEDS: NORMAL SALINE 1000 ML 1,000 ML IV PRN ×2 (11:52→12:06)
[2020-08-18] MEDS ORDERED: NORMAL SALINE 1000 ML 1,000 ML IV ONE (12:05)
[2020-08-18] MEDS ORDERED: NORMAL SALINE 500 ML IV ONE (12:06)
[2020-08-18 12:07] LABS: ALBUMIN 3.3 g/dL (3.5-5.0); ALKALINE PHOSPHATASE 72 U/L (38-126); ANION GAP 13 (5-19); ASPARTATE AMINO TRANSFERASE 29 U/L (17-59); BILIRUBIN,DIRECT 0.4 mg/dL (0.0-0.4); BILIRUBIN,TOTAL 0.6 mg/dL (0.2-1.3); BLOOD UREA NITROGEN 42 mg/dL (7-20); CALCIUM 9.1 mg/dL (8.4-10.2); CARBON DIOXIDE 21 mmol/L (22-30); CHLORIDE 100 mmol/L (98-107); GLUCOSE 85 mg/dL (75-110); TOTAL PROTEIN 6.6 g/dL (6.3-8.2)
[2020-08-18] MEDS ORDERED: HYDROMORPHONE HCL INJ/PF 2 MG/ML AMPULE IV ONE (12:15)
--- NOTE | 2020-08-18 12:22 | RADIOLOGY REPORT (SQ) ---
EXAM DESCRIPTION: CHEST SINGLE VIEW IMAGES COMPLETED DATE/TIME: 08/18/2020 12:06 pm REASON FOR STUDY: sepsis COMPARISON: 06/12/2020. EXAM PARAMETERS: NUMBER OF VIEWS: One view. TECHNIQUE: Single frontal radiographic view of the chest acquired. RADIATION DOSE: NA LIMITATIONS: None. FINDINGS: LUNGS AND PLEURA: Mild chronic interstitial changes. No focal infiltrates, masses or pneu mothorax. No pleural effusion. MEDIASTINUM AND HILAR STRUCTURES: No masses. Contour normal. HEART AND VASCULAR STRUCTURES: Heart upper limits of normal in size. Normal vasculature. BONES: No acute findings. HARDWARE: None in the chest. OTHER: No other significant finding. IMPRESSION: NO ACUTE RADIOGRAPHIC FINDING IN THE CHEST. TECHNICAL DOCUMENTATION: JOB ID: [id number] 2010 [employer]- All Rights Reserved Reading location - IP/workstation name: [email or web address]
--- NOTE | 2020-08-18 12:44 | ER Document Report ---
ED General - General Chief Complaint: Wound Infection Stated Complaint: SEPSIS Time Seen by Provider: 08/18/20 11:20 Primary Care Provider: CRYSTAL DURBIN MD [Primary Care Provider] - Follow up as needed Mode of Arrival: Medic Information source: Patient TRAVEL OUTSIDE OF THE [place] IN LAST 30 DAYS: No - HPI Notes: Patient is brought in by ambulance secondary to weakness and dizziness. Patient states for the last several days he has felt weak and dizzy. Apparently when he got to wound care this morning which he goes to once a week, he mentioned that he was feeling weak and they took his blood pressure. His blood pressure was apparently 60 systolic at wound care so the ambulance was called. Patient states that he has had no recent vomiting or diarrhea. He states that he has had no recent infections that he knows of. He states he did receive antibiotics several months ago and it caused him to have renal failure. He states he is no longer receiving dialysis. He denies any recent fevers or trauma. He denies a ny new pain. He has had no significant shortness of breath. He is on chronic oxygen he does still smoke cigarettes. He states he does still have several glasses of whiskey each morning. Patient's weakness has been constant. Is worse with exertion better with rest. It does radiate throughout his body. It has been severe. - Related Data Allergies/Adverse Reactions: cephalexin monohydrate [From Keflex] Allergy (Intermediate, Verified 08/18/20 11:28) codeine Allergy (Verified 08/18/20 11:28) morphine Allergy (Verified 08/18/20 11:28) Home Medications: xeralto, lipitor, midordrine Past Medical History - General Information source: Patient - Social History Smoking Status: Current Every Day Smoker Chew tobacco use (# tins/day): No Frequency of alcohol use: Heavy Drug Abuse: None Family History: COPD, Hypertension Patient has homicidal ideation: No - Past Medical History Cardiac Medical History: Reports: Hx Congestive Heart Failure, Hx Coronary Artery Disease, Hx DVT, Hx Heart Attack, Hx Hypercholesterolemia, Hx Hypertension, Hx Peripheral Vascular Disease, Hx Pulmonary Embolism Pulmonary Medical History: Reports: Hx Asthma, Hx Bronchitis, Hx COPD, Hx Pneumonia, Hx Respiratory Failure, Hx Sleep Apnea - Uses CPAP at home Denies: Hx Tuberculosis Neurological Medical History: Denies: Hx Seizures Endocrine Medical History: Denies: Hx Diabetes Mellitus Type 2, Hx Hypothyroidism Renal/ Medical History: Denies: Hx Peritoneal Dialysis GI Medical History: Reports: Hx Cirrhosis - Alcoholic, Hx Gastroesophageal Re flux Disease, Hx Hiatal Hernia, Hx Ulcer Psychiatric Medical History: Denies: Hx Depression Infectious Medical History: Reports: Hx MRSA, 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 Denies: Hx Appendectomy, Hx Bowel Surgery, Hx Coronary Artery Bypass Graft, Hx Gastric Bypass Surgery, Hx Pacemaker - Immunizations Hx Diphtheria, Pertussis, Tetanus Vaccination: Yes Hx Pneumococcal Vaccination: 03/25/13 Review of Systems - Review of Systems Constitutional: denies: Chills, Fever Cardiovascular: denies: Chest pain, Palpitations Respiratory: denies: Cough, Short of breath -: Yes All other systems reviewed and negative Physical Exam - Vital signs Vitals: Pulse Ox 96 08/18/20 11:12 Interpretation: Hypotensive - General General appearance: Appears well, Alert - HEENT Head: Normocephalic, Atraumatic Eyes: Normal Pupils: PERRL - Respiratory Respiratory status: No respiratory distress Chest status: Nontender Breath sounds: Decreased air movement, Rhonchi Chest palpation: Normal - Cardiovascular Rhythm: Regular Heart sounds: Normal auscultation Murmur: No - Abdominal Inspection: Normal Distension: No distension Bowel sounds: Normal Tenderness: Nontender Organomegaly: No organomegaly - Back Back: Normal, Nontender - Extremities General upper extremity: Normal inspection, Nontender, Normal color, Normal ROM, Normal temperature General lower extremity: Nontender, Other - Patient has bilateral chronic lymphedema changes of both lower extremities. He is got bilateral edema obviously of both lower extremities. The left is greater than the right and he states this is chronic. He has no acute changes suggesting any cellulitis that I can detect. He does have dopplerable dorsalis pedis pulses on the right and left sides. He is got a small stage I decubitus of the left medial malleolus that does not appear acutely infected. - Neurological Neuro grossly intact: Yes Cognition: Normal Orientation: AAOx4 Langlois Coma Scale Eye Opening: Spontaneous Arthur Coma Scale Verbal: Oriented Langlois Coma Scale Motor: Obeys Commands Arthur Coma Scale Total: 15 Speech: Normal Motor strength normal: LUE, RUE, LLE, RLE Sensory: Normal - Psychological Associated symptoms: Normal affect, Normal mood - Skin Skin Temperature: Warm Skin Moisture: Dry Skin Color: Erythema Course - Re-evaluation Re-evalutation: 08/18/20 12:43 Patient arrived with low blood pressure. His blood pressure has responded well to fluids and it is currently 110 systolic. Patient's creatinine is noticed to be elevated and patient has obvious acute kidney injury. In reviewing his past creatinines he has required dialysis secondary to antibiotic induced kidney injury. He has not been on dialysis now for several months as his kidney function came back to normal. Due to this history and not finding any evidence of acute infection I have withheld antibiotics at this time. His lactate is elevated but I feel this is secondary to dehydration and renal injury. I do not feel the patient is infected because he has a negative chest x-ray, his legs do not have any acute changes, he has no elevated white blood cell count or left shift, and he has no fever. I have discussed the case with the hospitalist and with the technical program manager. - Vital Signs Vital signs: Temp Pulse Resp BP Pulse Ox 98.1 F 13 103/58 L 97 08/18/20 11:23 08/18/20 12:01 08/18/20 12:01 08/18/20 12:01 - Laboratory Result Diagrams: 08/18/20 11:18 08/18/20 11:18 Laboratory results interpreted by me: 08/18/20 08/18/20 08/18/20 11:18 11:18 11:18 RBC 3.32 L Hgb 11.4 L Hct 32.2 L MCH 34.4 H RDW 14.7 H [place] % (Auto) 13.5 H PT 17.7 H VBG pH Sodium 133.5 L Carbon Dioxide 21 L BUN 42 H Creatinine 3.82 H Est GFR ( Amer) 19 L Est GFR (MDRD) Non-Af 16 L Lactic Acid Albumin 3.3 L 08/18/20 08/18/20 11:18 11:18 RBC Hgb Hct MCH RDW [place] % (Auto) PT VBG pH 7.29 L Sodium Carbon Dioxide BUN Creatinine Est GFR ( Amer) Est GFR (MDRD) Non-Af Lactic Acid 4.1 H Albumin - Diagnostic Test Radiology reviewed: Image reviewed, Reports reviewed - EKG Interpretation by Me EKG shows normal: Sinus rhythm Rate: Normal - 71 Rhythm: NSR [place]/QRS: No: Right axis deviation, Left axis deviation Critical Care Note - Critical Care Note Total time excluding time spent on procedures (mins): 50 Comments: Approximately 50 minutes of critical care time were spent taking care of this hypotensive patient with acute kidney injury. This time is spent doing multiple reassessments. It was spent talking with multiple consultants. It was spent reviewing imaging and laboratory values. It is spent reviewing old records. Discharge - Discharge Clinical Impression: Dehydration, Lactic acidosis, Chronic acquired lymphedema, Tobacco use disorder Acute renal failure Qualifiers: Acute renal failure type: unspecified Qualified Code(s): N17.9 - Acute kidney failure, unspecified Stasis ulcer Qualifiers: Venous stasis ulcer site: ankle Varicose vein presence: without varicose veins Laterality: left Non-pressure ulcer stage: limited to breakdown of skin Qualified Code(s): I87.2 - Venous insufficiency (chronic) (peripheral); L97.321 - Non-pressure chronic ulcer of left ankle limited to breakdown of skin Condition: Serious Disposition: ADMITTED INPATIENT Admitting Provider: Katharine (Hospitalist) - [facility] to admit Unit Admitted: Telemetry Referrals: CRYSTAL DURBIN MD [Primary Care Provider] - Follow up as needed
[2020-08-18] MEDS ORDERED: MAG HYDROX/AL HYDROX/SIMETH SUSP 30 ML UDCUP PO PRN (13:24)
[2020-08-18] MEDS ORDERED: ONDANSETRON HCL INJ/PF 4 MG/2 ML SDV IV PRN (13:24)
[2020-08-18] MEDS ORDERED: IPRATROPIUM/ALBUTEROL 0.5-2.5 MG/3 ML AMPUL NEB PRN (13:24)
[2020-08-18 13:57] LABS: APPEARANCE,URINE CLEAR; BILIRUBIN,URINE NEGATIVE (NEGATIVE); COLOR,URINE STRAW; GLUCOSE, URINE 50 mg/dL (NEGATIVE); KETONES,URINE NEGATIVE (NEGATIVE); PROTEIN,URINE NEGATIVE (NEGATIVE); URINE SPECIFIC GRAVITY 1.005; UROBILINOGEN,URINE NEGATIVE mg/dL (<2.0)
[2020-08-18] MEDS ORDERED: HEPARIN SOD (PORCINE) 5,000 UNIT/ML 1 ML VIAL SUBCUT SCH (14:00)
[2020-08-18] MEDS ORDERED: LORAZEPAM INJ 2 MG/1 ML VIAL IV PRN ×2 (14:01)
[2020-08-18] MEDS: NICOTINE 21 MG/24 HR PATCH.TD24 TD SCH (14:32)
[2020-08-18 16:36] LABS: ANION GAP 8 (5-19); BLOOD UREA NITROGEN 38 mg/dL (7-20); CALCIUM 8.5 mg/dL (8.4-10.2); CARBON DIOXIDE 23 mmol/L (22-30); CHLORIDE 102 mmol/L (98-107); GLUCOSE 110 mg/dL (75-110); POTASSIUM 5.1 mmol/L (3.6-5.0)
[2020-08-18] MEDS ORDERED: NORMAL SALINE 1000 ML 1,000 ML IV PRN (17:26)
--- NOTE | 2020-08-18 17:33 | EKG REPORT ---
SEVERITY:- ABNORMAL ECG - SINUS RHYTHM INCOMPLETE RIGHT BUNDLE BRANCH BLOCK : Confirmed by: Danay Hutton MD 18-Aug-2020 17:33:06
--- NOTE | 2020-08-18 17:50 | PDOC H&P ---
History of Present Illness Admission Date/PCP: 08/18/20 13:14 CRYSTAL DURBIN MD Patient complains of: hypotension History of Present Illness: ANALY NEVAREZ is a 65 year old male with a complicated medical history including chronic respiratory failure (on home O2; previously intubated) secondary to COPD, ORNIT, CHF, and morbid obesity, also with history of PVD, chronic BLE lymphedema, GERD, CKD, tobacco dependence, alcohol dependence, and opiate dependence all with continuous use who presented to the emergency department today from the wound care clinic after being noted to have hypotension. Per EMS, initial systolic BP in the 60s. Evaluation in the emergency department revealed hypotension (78/40) and otherwise normal vital signs. Mild anemia(Hgb 11.4), mildly elevated INR (1.44), mild hyponatremia (Na 133.5), acute kidney injury (Cr 3.82/BUN 42), l actic acidosis (4.1), negative urinalysis, and serum EtOH 23. CXR is benign. He is provided a total of 3.5 L IV fluid and referred to the hospital service for further evaluation management of the above-stated findings. Past Medical History Cardiac Medical History: Reports: Congestive Heart Failure, Coronary Artery Disease, DVT, Myocardial Infarction, Hyperlipidema, Hypertension, Peripheral Vascular Disease, Pulmonary Embolism Pulmonary Medical History: Reports: Asthma, Bronchitis, Chronic Obstructive Pulmonary Disease (COPD), Intubation, Pneumonia, Respiratory Failure, Sleep Apnea - Uses CPAP at home Denies: Tuberculosis EENT Medical History: Reports: None Neurological Medical History: Denies: Ischemic CVA, Seizures Endocrine Medical History: Reports: Obesity Denies: Diabetes Mellitus Type 2, Hypothyroidism Renal/ Medical History: Reports: Other - previously received short-term dialysis for Vancomycin related ATN Malignancy Medical History: Reports: None GI Medical History: Reports: Cirrhosis - Alcoholic, Gastroesophageal Reflux Disease, Hiatal Hernia Musculoskeltal Medical History: Reports: None Psychiatric Medical History: Reports: Alcohol Dependency, Tobacco Dependency Denies: Depression Traumatic Medical History: Reports: None Hematology: Reports: Anemia Infectious Medical History: Reports: Methicillin-Resistant Staph Aureus, Vancomycin-Resistant Enterococci - Recurrent cellulitis of right lower extremity Past Surgical History Past Surgical History: Reports: Cardiac Catheterization - stent x1, Cholecystectomy, Herniorrhaphy - mesh, Orthopedic Surgery - multiple back, Tonsillectomy, Vascular Surgery - filter placed, pt unsure where, Other - He had ventral hernia followed by SBO at [facility] few years ago Denies: Appendectomy, Coronary Artery Bypass Graft, Gastric Bypass Surgery, Pacemaker Social History Information Source: Patient Lives with: Friend Smoking Status: Current Every Day Smoker Cigarettes Packs Per Day: 1.5 Electronic Cigarette use?: No Frequency of Alcohol Use: Heavy Hx Recreational Drug Use: Yes Drugs: Marijuana Hx Prescription Drug Abuse: No - Advance Directive Resuscitation Status: Full Code Family History Family History: COPD, Hypertension Parental Family History Reviewed: Yes Children Family History Reviewed: Yes Sibling(s) Family History Reviewed.: Yes Medication/Allergy Home Medications: Atorvastatin Calcium 40 mg PO DAILY 06/07/18 Loratadine [Claritin] 10 mg PO DAILY 06/07/18 Montelukast Sodium [Singulair 10 mg Tablet] 10 mg PO QHS 06/07/18 Naloxegol Oxalate [Movantik] 25 mg PO DAILY 06/07/18 Pregabalin [Lyrica] 150 mg PO Q8 06/07/18 Trazodone HCl [Desyrel] 300 mg PO QHS 06/07/18 Albuterol Sulfate [Proair HFA Inhalation Aerosol 8.5 gm MDI] 1 puff IH Q6HP PRN 07/11/19 Docusate Sodium [Colace 100 mg Capsule] 100 mg PO BID 06/08/20 Ferrous Sulfate [Feosol 325 mg Tablet] 325 mg PO DAILY 06/08/20 Fluticasone/Umeclidin/Vilanter [Trelegy 100-62.5-25 Mcg Ellipta 14 Dose/Dpi] 1 puff IH DAILY 06/08/20 Folic Acid [Folvite 1 mg Tablet] 1 mg PO DAILY 06/08/20 Furosemide [Lasix 40 mg Tablet] 40 mg PO BID 06/08/20 Omeprazole 20 mg PO DAILY 06/08/20 Oxycodone HCl [Oxy-Ir 5 mg Tablet] 10 mg PO Q6HP PRN 06/08/20 Rivaroxaban [Xarelto] 20 mg PO QPM 06/08/20 Carvedilol [Coreg 3.125 mg Tablet] 3.125 mg PO Q12 #60 tablet 06/14/20 Lisinopril [Prinivil 10 mg Tablet] 10 mg PO DAILY #30 tablet 06/14/20 Sodium Hypochlorite [Dakin's 0.25% Soln 473 ml] 1 applic TOP DAILY 08/18/20 Allergies/Adverse Reactions: cephalexin monohydrate [From Keflex] Allergy (Intermediate, Verified 08/18/20 11:28) codeine Allergy (Verified 08/18/20 11:28) morphine Allergy (Verified 08/18/20 11:28) Review of Systems Constitutional: ABSENT: chills, fever(s), headache(s), weight gain, weight loss Eyes: ABSENT: visual disturbances Ears: ABSENT: hearing changes Cardiovascular: ABSENT: chest pain, dyspnea on exertion, edema, orthropnea, palpitations Respiratory: ABSENT: cough, hemoptysis Gastrointestinal: ABSENT: abdominal pain, constipation, diarrhea, hematemesis, hematochezia, nausea, vomiting Genitourinary: ABSENT: dysuria, hematuria Musculoskeletal: ABSENT: joint swelling Integumentary: PRESENT: wounds - BLE. ABSENT: rash Neurological: ABSENT: abnormal gait, abnormal speech, confusion, dizziness, focal weakness, syncope Psychiatric: ABSENT: anxiety, depression, homidical ideation, suicidal ideation Endocrine: ABSENT: cold intolerance, heat intolerance, polydipsia, polyuria Hematologic/Lymphatic: ABSENT: easy bleeding, easy bruising Physical Exam Vital Signs: Temp Pulse Resp BP Pulse Ox 98.1 F 15 95/56 L 93 08/18/20 11:23 08/18/20 13:31 08/18/20 13:31 08/18/20 13:31 Intake & Output 08/17/20 08/18/20 08/19/20 06:59 06:59 06:59 Intake Total 2500 Balance 2500 Weight 114.2 kg General appearance: PRESENT: no acute distress, disheveled, morbidly obese, well-developed, well-nourished Head exam: PRESENT: atraumatic, normocephalic Eye exam: PRESENT: conjunctiva pink, EOMI, PERRLA. ABSENT: scleral icterus Mouth exam: PRESENT: moist, tongue midline Teeth exam: PRESENT: poor dentation Respiratory exam: PRESENT: clear to auscultation lui, symmetrical, unlabored, other - Baseline oxygen requirement. ABSENT: rales, rhonchi, wheezes Cardiovascular exam: PRESENT: RRR. ABSENT: diastolic murmur, rubs, systolic murmur Vascular exam: PRESENT: normal capillary refill GI/Abdominal exam: PRESENT: normal bowel sounds, soft, other - exam limited r/t body habitus. ABSENT: rebound, tenderness Rectal exam: PRESENT: deferred Extremities exam: PRESENT: full ROM, pedal edema, +2 edema - BLE; R>L. ABSENT: calf tenderness, clubbing Musculoskeletal exam: ABSENT: ambulatory - at baseline; transfers and uses electric scooter Neurological exam: PRESENT: alert, awake, oriented to person, oriented to place, oriented to time, oriented to situation, CN II-XII grossly intact. ABSENT: m otor sensory deficit Psychiatric exam: PRESENT: appropriate affect, normal mood. ABSENT: homicidal ideation, suicidal ideation Skin exam: PRESENT: dry, warm, other - bilateral chronic lymphedema changes of both lower extremities w/ lichenification bilateral toes. Stage 1 pressure woundL medial malleoulis, serous drainage from between toes to R foot. Mild erythema medial right foot.. ABSENT: cyanosis, erythema, rash Results Laboratory Results: 08/18/20 11:18 08/18/20 11:18 08/18/20 08/18/20 08/18/20 11:18 11:18 11:18 WBC 8.1 RBC 3.32 L Hgb 11.4 L Hct 32.2 L MCV 97 MCH 34.4 H MCHC 35.3 RDW 14.7 H Plt Count 155 Seg Neutrophils % 47.9 VBG pH 7.29 L VBG pCO2 46.1 VBG HCO3 21.7 VBG Base Excess -4.9 Sodium 133.5 L Potassium 5.0 Chloride 100 Carbon Dioxide 21 L Anion Gap 13 BUN 42 H Creatinine 3.82 H Est GFR ( Amer) 19 L Glucose 85 Lactic Acid Calcium 9.1 Total Bilirubin 0.6 AST 29 Alkaline Phosphatase 72 Total Protein 6.6 Albumin 3.3 L Urine Color Urine Appearance Urine pH Ur Specific [place] Urine Protein Urine Glucose (UA) Urine Ketones Urine Blood Urine RBC (Auto) 08/18/20 08/18/20 11:18 13:25 WBC RBC Hgb Hct MCV MCH MCHC RDW Plt Count Seg Neutrophils % VBG pH VBG pCO2 VBG HCO3 VBG Base Excess Sodium Potassium Chloride Carbon Dioxide Anion Gap BUN Creatinine Est GFR ( Amer) Glucose Lactic Acid 4.1 H Calcium Total Bilirubin AST Alkaline Phosphatase Total Protein Albumin Urine Color STRAW Urine Appearance CLEAR Urine pH 5.0 Ur Specific [place] 1.005 Urine Protein NEGATIVE Urine Glucose (UA) 50 H Urine Ketones NEGATIVE Urine Blood SMALL H Urine RBC (Auto) 0 Impressions: Chest X-Ray 08/18/20 11:12 IMPRESSION: NO ACUTE RADIOGRAPHIC FINDING IN THE CHEST. Assessment and Plan - Diagnosis (1) Hypotension Is this a current diagnosis for this admission?: Yes Plan: Unclear etiology. Likely multifactorial secondary to clinical dehydration, EtOH use/abuse, polypharmacy (opiate dependence, Lyrica use), and acute infectious process. Will check orthostatic vital signs every shift. Check AM Cortisol and TSH. LINO hose Continue gentle IVF Start Midodrine Hold home antihypertensive regiment for now (lisinopril, carvedilol, furosemide). Hold home dose Lyrica and oxycodone; may need to resume at lower dose and titrate up as blood pressure allows. Fall precautions. Cultures and antibiotics as below. May require cardiology vs nephrology consultation. PT/OT consultations (2) Acute renal failure Qualifiers: Acute renal failure type: unspecified Qualified Code(s): N17.9 - Acute kidney failure, unspecified Is this a current diagnosis for this admission?: Yes Plan: Prerenal secondary to hypotension. Improved following IV fluid resuscitation; CR 3.82-> 3.18. Baseline 0.77. Previously required short-term dialysis related to vancomycin toxicity ATN. We will continue IV fluids. Avoid nephrotoxic medications as able. Renally dosed where appropriate. Daily weights, strict I&O's. Trend chemistries. Nephrology consultation if does not continue to demonstrate improvement overnight. (3) Bilateral cellulitis of lower leg Is this a current diagnosis for this admission?: Yes Plan: Patient with chronic bilateral lower extremity lymphedema and venous stasis wounds. Shallow ulceration noted to the right medial malleolus with serous drainage between toes of right foot. Mild erythema noted to feet bilaterally; R>L Currently afebrile with normal WBC. However, patient presented with hypotension, lactic acidosis, and CARMELA. CT bilateral extremities pending to evaluate for occult infections/osteomyelitis. Blood cultures pending. History of ATN related to Vanc toxicity. We will empirically place on IV Linezolid. (4) Lymphedema Is this a current diagnosis for this admission?: Yes Plan: Chronic lymphedema. Follow-up at the wound care clinic for compression wraps. Pending lower extremity CT results, will consult wound care for continued wraps while admitted. Keep extremities elevated. (5) Stasis ulcer Qualifiers: Venous stasis ulcer site: ankle Varicose vein presence: without varicose veins Laterality: right Non-pressure ulcer stage: limited to breakdown of skin Qualified Code(s): I87.2 - Venous insufficiency (chronic) (peripheral); L97.311 - Non-pressure chronic ulcer of right ankle limited to breakdown of skin Is this a current diagnosis for this admission?: Yes Plan: As above. Dakin's wet-to-dry dressing changes daily. (6) Alcohol dependency Qualifiers: Substance use status: uncomplicated Qualified Code(s): F10.20 - Alcohol dependence, uncomplicated Is this a current diagnosis for this admission?: Yes Plan: Patient admits to drinking 2 mixed drinks each morning of approximately 4 ounces of liquor each day six pack of beer nightly. Last drink was this morning. He does have a history of alcohol withdrawal with seizures. Placed on daily multivitamin, folic acid, thiamine supplementation. CIWA q 4 hours with prn Ativan Seizure, fall, aspiration precations. (7) COPD (chronic obstructive pulmonary disease) Qualifiers: COPD type: unspecified COPD Qualified Code(s): J44.9 - Chronic obstructive pulmonary disease, unspecified Is this a current diagnosis for this admission?: Yes Plan: Supplemental oxygen as needed maintain oxygen saturations greater than 89%. Continue home dose Claritin Albuterol HFA as needed, Trelegy, and Singulair. Encourage pulmonary toilet with incentive spirometer and flutter valve. No indications for steroid therapy at this time. (8) GERD (gastroesophageal reflux disease) Qualifiers: Esophagitis presence: esophagitis presence not specified Qualified Code(s): K21.9 - Gastro-esophageal reflux disease without esophagitis Is this a current diagnosis for this admission?: Yes Plan: Continue daily PPI (9) RONIT (obstructive sleep apnea) Is this a current diagnosis for this admission?: Yes Plan: CPAP nightly and prn (10) Obesity (BMI 35.0-39.9 without comorbidity) Is this a current diagnosis for this admission?: Yes Plan: BMI 38.3 Dietary compliance and lifestyle modification are encouraged. Cardiac diet. (11) Tobacco dependence Is this a current diagnosis for this admission?: Yes Plan: Smoking cessation encouraged. Nicotine replacement therapies provided. (12) Lactic acidosis Is this a current diagnosis for this admission?: Yes Plan: Resolved following IV fluid resuscitation. Cultures and antibiotics as above. - Time Time Spent with patient: 35 or more minutes Medications reviewed and adjusted accordingly: Yes Anticipated Discharge Disposition: Home with Home Health - vs SNF Anticipated Discharge Timeframe: >72 hrs
--- NOTE | 2020-08-18 17:51 | RADIOLOGY REPORT (SQ) ---
EXAM DESCRIPTION: CT LT LOWER EXTREMITY WITHOUT IMAGES COMPLETED DATE/TIME: 08/18/2020 3:13 pm REASON FOR STUDY: chronic foot wounds, SIRS, ?osteomyelitis COMPARISON: None. TECHNIQUE: Axial imaging performed through the left ankle and foot with reformatted coronal and sagi ttal imaging windowed for bone and soft tissues. Images saved to PACS. 3D IMAGING: Were 3D images as MIP, SSD, or volume rendering performed at the work station? No. All CT scanners at this facility use dose modulation, iterative reconstruction, and/or weight based d osing when appropriate to reduce radiation dose to as low as reasonably achievable (ALARA). [facility]: Dose Right [facility]: CareDose [facility]: Dose Right [facility]: Teradose 4D [facility]: [place] LIMITATIONS: None. RADIATION DOSE: CT Rad equipment meets quality standard of care and radiation dose reduction techniq ues were employed. CTDIvol: 4.1 mGy. DLP: 149 mGy-cm. mGy. FINDINGS: SOFT TISSUES: There is diffuse edema in the subcutaneous tissues of the distal lower leg a nd dorsal surface of the foot. No focal fluid collection. No radiopaque foreign body. BONES: Oblique fracture of the distal 5th metatarsal. Old fracture of the distal fibula. Plantar ca lcaneal spur. No significant bony cortical destructive changes. MINERALIZATION: Normal. OTHER: No other significant finding. IMPRESSION: 1. OBLIQUE FRACTURE OF THE DISTAL 5TH METATARSAL. OLD FRACTURE OF THE DISTAL FIBULA. 2. DIFFUSE SUBCUTANEOUS EDEMA THROUGHOUT THE SOFT TISSUES. NO FOCAL ABSCESS. 3. NO DESTRUCTIVE BONY CHANGES OR OTHER FINDINGS OF OSTEOMYELITIS. TECHNICAL DOCUMENTATION: JOB ID: [id number] Quality ID # [id number]: Final reports with documentation of one or more dose reduction techniques (e.g., Au tomated exposure control, adjustment of the mA and/or kV according to patient size, use of iterative reconstruction technique) 2010 [employer]- All Rights Reserved Reading location - IP/workstation name: [email or web address]
--- NOTE | 2020-08-18 17:53 | RADIOLOGY REPORT (SQ) ---
EXAM DESCRIPTION: CT RT LOWER EXTREMITY WITHOUT IMAGES COMPLETED DATE/TIME: 08/18/2020 3:13 pm REASON FOR STUDY: chronic foot wounds, SIRS, ?osteomyelitis COMPARISON: None. TECHNIQUE: Axial imaging performed through the right ankle and foot with reformatted coronal and sag ittal imaging windowed for bone and soft tissues. Images saved to PACS. 3D IMAGING: Were 3D images as MIP, SSD, or volume rendering performed at the work station? No. All CT scanners at this facility use dose modulation, iterative reconstruction, and/or weight based d osing when appropriate to reduce radiation dose to as low as reasonably achievable (ALARA). [facility]: Dose Right [facility]: CareDose [facility]: Dose Right [facility]: Teradose 4D [facility]: Scary Mommy LIMITATIONS: None. RADIATION DOSE: mGy. FINDINGS: SOFT TISSUES: Diffuse edema throughout the subcutaneous soft tissues of the distal leg and foot, particularly on the dorsal surface of the foot. No discrete focal fluid collection. No radio paque foreign body. BONES: No acute fracture. No dislocation. Plantar calcaneal spur. Degenerative changes in the midf oot. No destructive bony changes. MINERALIZATION: Normal. OTHER: No other significant finding. IMPRESSION: DIFFUSE SUBCUTANEOUS EDEMA THROUGHOUT THE SOFT TISSUES OF THE DISTAL LEG AND FOOT, PARTI CULARLY ON THE DORSAL SURFACE OF THE FOOT. NO DISCRETE ABSCESS. NO BONY DESTRUCTIVE CHANGES OR OTHE R FINDINGS CONCERNING FOR OSTEOMYELITIS. TECHNICAL DOCUMENTATION: JOB ID: [id number] Quality ID # [id number]: Final reports with documentation of one or more dose reduction techniques (e.g., Au tomated exposure control, adjustment of the mA and/or kV according to patient size, use of iterative reconstruction technique) 2010 [employer]- All Rights Reserved Reading location - IP/workstation name: [email or web address]
[2020-08-18] MEDS ORDERED: DIAZEPAM 5 MG TABLET PO SCH (18:00)
[2020-08-18] MEDS: MIDODRINE HCL 5 MG TABLET PO SCH (19:28)
[2020-08-18] MEDS ORDERED: ALBUTEROL SULFATE HFA (90 MCG/PUFF) 8 GM MDI IH PRN (20:00)
[2020-08-18] MEDS: LINEZOLID 600 MG/300 ML RTUPB IV SCH (21:28)
[2020-08-18] MEDS: ACETAMINOPHEN 325 MG TABLET PO PRN (21:28)
[2020-08-18] MEDS: RIVAROXABAN 10 MG TABLET PO SCH (21:29)
[2020-08-18] MEDS: MONTELUKAST SODIUM 10 MG TABLET PO SCH (21:29)
[2020-08-18] MEDS: TRAZODONE HCL 50 MG TABLET PO SCH (21:30)
[2020-08-18] MEDS ORDERED: (PENDING PHARMACY ID) (Trazodone Hcl [Desyrel] 300 MG) PO SCH (22:00)
[2020-08-19 06:40] LABS: ABSOLUTE BASOPHILS # (AUTO) 0.1 10^3/uL (0.0-0.2); ABSOLUTE EOSINOPHILS # (AUTO) 0.1 10^3/uL (0.0-0.6); ABSOLUTE LYMPHOCYTES (AUTO) 3.6 10^3/uL (0.5-4.7); ABSOLUTE MONOCYTES (AUTO) 0.8 10^3/uL (0.1-1.4); ABSOLUTE NEUT (AUTO) 2.6 10^3/uL (1.7-8.2); ABSOLUTE RETICS # 0.061 10^6/uL (0.028-0.122); BASOPHILS % (AUTO) 0.9 % (0-2); EOSINOPHILS % (AUTO) 1.7 % (0-6); HEMATOCRIT 34.2 % (37.9-51.0); LYMPHOCYTES % (AUTO) 49.8 % (13-45); MEAN CORPUSCULAR HEMOGLOBIN 34.3 pg (27.0-33.4); MEAN CORPUSCULAR VOLUME 98 fl (80-97); MONOCYTES % (AUTO) 11.7 % (3-13); PLATELET COUNT 141 10^3/uL (150-450); RED BLOOD COUNT 3.49 10^6/uL (4.35-5.55); RED CELL DISTRIBUTION WIDTH 14.4 % (11.5-14.0); RETICULOCYTE COUNT (AUTO) 1.75 % (0.66-2.85); SEGMENTED NEUTROPHILS % (AUTO) 35.9 % (42-78); TOTAL CELLS COUNTED % (AUTO) 100 %; WHITE BLOOD COUNT 7.2 10^3/uL (4.0-10.5)
[2020-08-19 07:00] LABS: ANION GAP 6 (5-19); BLOOD UREA NITROGEN 37 mg/dL (7-20); CALCIUM 8.8 mg/dL (8.4-10.2); CARBON DIOXIDE 26 mmol/L (22-30); CHLORIDE 104 mmol/L (98-107); GLUCOSE 97 mg/dL (75-110); IRON(TIBC) 165.8 ug/dL (49-181); POTASSIUM 4.6 mmol/L (3.6-5.0)
[2020-08-19] MEDS ORDERED: INFLUENZA QUAD (6MOS+) 2020-21 VAC 0.5 ML SYR IM ONE (08:00)
[2020-08-19] MEDS: SODIUM HYPOCHLORITE 0.25% SOLN 473 ML BOTTLE TOP SCH (10:00)
[2020-08-19] MEDS: LORATADINE 10 MG TABLET PO SCH (11:52)
[2020-08-19] MEDS: MULTIVITAMIN TABLET PO SCH (11:52)
[2020-08-19] MEDS: DOCUSATE SODIUM 100 MG CAPSULE PO SCH (11:52)
[2020-08-19] MEDS: ATORVASTATIN CALCIUM 40 MG TABLET PO SCH (11:52)
[2020-08-19] MEDS: PANTOPRAZOLE SODIUM 20 MG TABLET.DR PO SCH (11:52)
[2020-08-19] MEDS: MIDODRINE HCL 5 MG TABLET PO SCH ×3 (11:53→17:52)
[2020-08-19] MEDS: THIAMINE HCL 100 MG TABLET PO SCH (11:53)
[2020-08-19] MEDS: FLUTICASONE/UMECLIDIN/VILANTER 100-62.5-25 MCG/DOSE IH SCH (11:53)
[2020-08-19] MEDS: FOLIC ACID 1 MG TABLET PO SCH (11:53)
[2020-08-19] MEDS: FERROUS SULFATE 325 MG TABLET PO SCH (11:53)
[2020-08-19] MEDS: NICOTINE 21 MG/24 HR PATCH.TD24 TD SCH (11:54)
[2020-08-19] MEDS: LINEZOLID 600 MG/300 ML RTUPB IV SCH ×2 (11:54→21:12)
[2020-08-19] MEDS: NORMAL SALINE 1000 ML 1,000 ML IV PRN (12:00)
--- NOTE | 2020-08-19 13:35 | PDOC PROGRESS REPORT ---
Subjective Progress Note for:: 08/19/20 Subjective:: ANALY NEVAREZ is a 65 year old male with a complicated medical history including chronic respiratory failure (on home O2; previously intubated) secondary to COPD, RONIT, CHF, and morbid obesity, also with history of PVD, chronic BLE lymphedema, GERD, CKD, tobacco dependence, alcohol dependence, and opiate dependence all with continuous use who was admitted 08/19/2020 with hypotension and bilateral lower extremity cellulitis. Patient was seen on morning rounds. He was found resting in bed, comfortably, on his baseline oxygen therapy. He is just completed his breakfast. He states that he is feeling well and hopeful to discharge home today. He does admit that he has not yet been out of bed and orthostatic blood pressures have not yet been done. He denies fever, chills, chest pain, palpitations, dyspnea, orthopnea, abdominal pain, nausea vomiting and diarrhea. Discussed need to continue antibiotics and hydration for now. Discussed continued hypotention and CARMELA. All questions answered. No concerns per nursing. Reason For Visit: HYPOTENSION Physical Exam Vital Signs: Temp Pulse Resp BP Pulse Ox 97.9 F 67 14 145/128 H 98 08/19/20 12:20 08/19/20 12:20 08/19/20 12:20 08/19/20 12:20 08/19/20 12:20 Intake & Output 08/18/20 08/19/20 08/20/20 06:59 06:59 06:59 Intake Total 3240 Output Total 1976 Balance 1264 Weight 114.6 kg General appearance: PRESENT: no acute distress, cooperative, disheveled, obese, well-developed, well-nourished Head exam: PRESENT: atraumatic, normocephalic Eye exam: PRESENT: conjunctiva pink, EOMI, PERRLA. ABSENT: scleral icterus Mouth exam: PRESENT: moist, tongue midline Respiratory exam: PRESENT: clear to auscultation lui, symmetrical, unlabored, other - Baseline oxygen requirement. ABSENT: rales, rhonchi, wheezes Cardiovascular exam: PRESENT: RRR. ABSENT: diastolic murmur, rubs, systolic murmur Pulses: PRESENT: normal dorsalis pedis pul Vascular exam: PRESENT: normal capillary refill GI/Abdominal exam: PRESENT: normal bowel sounds, soft, other - Exam limited secondary to body habitus. ABSENT: tenderness Rectal exam: PRESENT: deferred Extremities exam: PRESENT: full ROM, pedal edema - +2 bilateral feet, +2 edema - Right lower extremity; resolved on left superior ankle. ABSENT: calf tenderne ss, clubbing Neurological exam: PRESENT: alert, awake, oriented to person, oriented to place, oriented to time, oriented to situation, CN II-XII grossly intact. ABSENT: motor sensory deficit Psychiatric exam: PRESENT: appropriate affect, normal mood. ABSENT: homicidal ideation, suicidal ideation Skin exam: PRESENT: dry, warm, other - bilateral chronic lymphedema changes of both lower extremities w/ lichenification bilateral toes. Stage 1 pressure woundL medial malleoulis, serous drainage from between toes to R foot. Erythema is improved.. ABSENT: cyanosis, rash Results Laboratory Results: 08/19/20 05:53 08/19/20 05:53 08/18/20 08/18/20 08/18/20 13:25 14:30 15:56 WBC RBC Hgb Hct MCV MCH MCHC RDW Plt Count Seg Neutrophils % Retic Count (auto) Sodium 133.1 L Potassium 5.1 H Chloride 102 Carbon Dioxide 23 Anion Gap 8 BUN 38 H Creatinine 3.18 H Est GFR ( Amer) 24 L Glucose 110 Lactic Acid 1.7 Calcium 8.5 Iron TIBC % Saturation Ferritin Vitamin B12 Folate TSH Urine Color STRAW Urine Appearance CLEAR Urine pH 5.0 Ur Specific [place] 1.005 Urine Protein NEGATIVE Urine Glucose (UA) 50 H Urine Ketones NEGATIVE Urine Blood SMALL H Urine RBC (Auto) 0 08/18/20 08/19/20 08/19/20 17:48 05:53 05:53 WBC 7.2 RBC 3.49 L Hgb 12.0 L Hct 34.2 L MCV 98 H MCH 34.3 H MCHC 35.0 RDW 14.4 H Plt Count 141 L Seg Neutrophils % 35.9 L Retic Count (auto) 1.75 Sodium 135.5 L Potassium 4.6 Chloride 104 Carbon Dioxide 26 Anion Gap 6 BUN 37 H Creatinine 2.95 H Est GFR ( Amer) 26 L Glucose 97 Lactic Acid 1.2 Calcium 8.8 Iron 165.8 TIBC 220 L % Saturation 75 Ferritin 428.00 Vitamin B12 329.0 Folate 20.00 TSH Urine Color Urine Appearance Urine pH Ur Specific [place] Urine Protein Urine Glucose (UA) Urine Ketones Urine Blood Urine RBC (Auto) 08/19/20 05:53 WBC RBC Hgb Hct MCV MCH MCHC RDW Plt Count Seg Neutrophils % Retic Count (auto) Sodium Potassium Chloride Carbon Dioxide Anion Gap BUN Creatinine Est GFR ( Amer) Glucose Lactic Acid Calcium Iron TIBC % Saturation Ferritin Vitamin B12 Folate TSH 1.42 Urine Color Urine Appearance Urine pH Ur Specific [place] Urine Protein Urine Glucose (UA) Urine Ketones Urine Blood Urine RBC (Auto) Impressions: Lower Extremity CT 08/18/20 00:00 IMPRESSION: DIFFUSE SUBCUTANEOUS EDEMA THROUGHOUT THE SOFT TISSUES OF THE DISTAL LEG AND FOOT, PARTICULARLY ON THE DORSAL SURFACE OF THE FOOT. NO DISCRETE ABSCESS. NO BONY DESTRUCTIVE CHANGES OR OTHER FINDINGS CONCERNING FOR OSTEOMYELITIS. Chest X-Ray 08/18/20 11:12 IMPRESSION: NO ACUTE RADIOGRAPHIC FINDING IN THE CHEST. Assessment and Plan - Diagnosis (1) Hypotension Is this a current diagnosis for this admission?: Yes Plan: Slightly improved; 93/64 (MAP 73) this mornign. Unclear etiology; likely multifactorial secondary to clinical dehydration, EtOH use/abuse, polypharmacy (opiate dependence, Lyrica use), and acute infectious process. AM Cortisol and TSH are nml Will check orthostatic vital signs every shift. LINO hose Continue gentle IVF Start Midodrine; consider dose increase. Continue to hold home antihypertensives for now (lisinopril, carvedilol, furosemide). Continue to hold home dose Lyrica and oxycodone; may need to resume at lower dose and titrate up as blood pressure allows. Fall precautions. Cultures and antibiotics as below. May require cardiology vs nephrology consultation. PT/OT consultations (2) Acute renal failure Qualifiers: Acute renal failure type: unspecified Qualified Code(s): N17.9 - Acute kidney failure, unspecified Is this a current diagnosis for this admission?: Yes Plan: Improved following IV fluid resuscitation; CR 3.82-> 3.18-> 2.95 Baseline 0.77. Prerenal secondary to hypotension. Previously required short-term dialysis related to vancomycin toxicity ATN. We will continue IV fluids. Avoid nephrotoxic medications as able. Renally dosed where appropriate. Daily weights, strict I&O's. Trend chemistries. Nephrology consultation if does not continue to demonstrate improvement. (3) Bilateral cellulitis of lower leg Is this a current diagnosis for this admission?: Yes Plan: Improved appearance today; decreased erythema and edema. WBC nml, remains afebrile. Patient with chronic bilateral lower extremity lymphedema and venous stasis wounds. Shallow ulceration noted to the right medial malleolus with serous drainage between toes of right foot. Mild erythema noted to feet bilaterally; R>L Currently afebrile with normal WBC. However, patient presented with hypotension, lactic acidosis, and CARMELA. CT bilateral extremities pending to evaluate for occult infections/osteomyelitis. Blood cultures pending. History of ATN related to Vanc toxicity. We will empirically place on IV Linezolid; Day #2 (4) Lymphedema Is this a current diagnosis for this admission?: Yes Plan: Chronic lymphedema. Follow-up at the wound care clinic for compression wraps. Will consult wound care for continued wraps while admitted. Keep extremities elevated. (5) Stasis ulcer Qualifiers: Venous stasis ulcer site: ankle Varicose vein presence: without varicose veins Laterality: right Non-pressure ulcer stage: limited to breakdown of skin Qualified Code(s): I87.2 - Venous insufficiency (chronic) (peripheral); L97.311 - Non-pressure chronic ulcer of right ankle limited to breakdown of skin Is this a current diagnosis for this admission?: Yes Plan: As above. Dakin's wet-to-dry dressing changes daily. (6) Alcohol dependency Qualifiers: Substance use status: uncomplicated Qualified Code(s): F10.20 - Alcohol dependence, uncomplicated Is this a current diagnosis for this admission?: Yes Plan: Patient admits to drinking 2 mixed drinks each morning of approximately 4 ounces of liquor each day six pack of beer nightly. Last drink was this morning. He does have a history of alcohol withdrawal with seizures. Placed on daily multivitamin, folic acid, thiamine supplementation. CIWA Score q 4 hours with prn Ativan It appears that the patient received Ativan x1 overnight; although CIWA scores have not been documented Seizure, fall, aspiration precations. (7) COPD (chronic obstructive pulmonary disease) Qualifiers: COPD type: unspecified COPD Qualified Code(s): J44.9 - Chronic obstructive pulmonary disease, unspecified Is this a current diagnosis for this admission?: Yes Plan: Supplemental oxygen as needed maintain oxygen saturations greater than 89%. Continue home dose Claritin Albuterol HFA as needed, Trelegy, and Singulair. Encourage pulmonary toilet with incentive spirometer and flutter valve. No indications for steroid therapy at this time. (8) GERD (gastroesophageal reflux disease) Qualifiers: Esophagitis presence: esophagitis presence not specified Qualified Code(s): K21.9 - Gastro-esophageal reflux disease without esophagitis Is this a current diagnosis for this admission?: Yes Plan: Continue daily PPI (9) RONIT (obstructive sleep apnea) Is this a current diagnosis for this admission?: Yes Plan: CPAP nightly and prn (10) Obesity (BMI 35.0-39.9 without comorbidity) Is this a current diagnosis for this admission?: Yes Plan: BMI 38.4 Dietary compliance and lifestyle modification are encouraged. Cardiac diet. (11) Tobacco dependence Is this a current diagnosis for this admission?: Yes Plan: Smoking cessation encouraged. Nicotine replacement therapies provided. (12) Lactic acidosis Is this a current diagnosis for this admission?: Yes Plan: Resolved following IV fluid resuscitation. Cultures and antibiotics as above. - Time Time Spent with patient: 25-34 minutes Medications reviewed and adjusted accordingly: Yes Anticipated Discharge Disposition: Home with Home Health Anticipated Discharge Timeframe: >72 hrs
[2020-08-19] MEDS: RIVAROXABAN 10 MG TABLET PO SCH (17:52)
[2020-08-19] MEDS: TRAZODONE HCL 50 MG TABLET PO SCH (21:12)
[2020-08-19] MEDS: MONTELUKAST SODIUM 10 MG TABLET PO SCH (21:12)
[2020-08-20] MEDS: NORMAL SALINE 1000 ML 1,000 ML IV PRN (01:21)
[2020-08-20 04:41] LABS: HEMATOCRIT 30.4 % (37.9-51.0); HEMOGLOBIN 10.6 g/dL (13.5-17.0); MEAN CORPUSCULAR HEMOGLOBIN 33.8 pg (27.0-33.4); MEAN CORPUSCULAR HGB CONC 34.8 g/dL (32.0-36.0); MEAN CORPUSCULAR VOLUME 97 fl (80-97); PLATELET COUNT 130 10^3/uL (150-450); RED BLOOD COUNT 3.13 10^6/uL (4.35-5.55); RED CELL DISTRIBUTION WIDTH 14.3 % (11.5-14.0); WHITE BLOOD COUNT 7.7 10^3/uL (4.0-10.5)
[2020-08-20 05:07] LABS: BLOOD UREA NITROGEN 29 mg/dL (7-20); GLUCOSE 101 mg/dL (75-110); POTASSIUM 4.9 mmol/L (3.6-5.0)
[2020-08-20 05:14] LABS: CARBON DIOXIDE 25 mmol/L (22-30); CHLORIDE 109 mmol/L (98-107)
[2020-08-20 05:20] LABS: ANION GAP 4 (5-19)
[2020-08-20] MEDS: DOCUSATE SODIUM 100 MG CAPSULE PO SCH (09:14)
[2020-08-20] MEDS: FERROUS SULFATE 325 MG TABLET PO SCH (09:14)
[2020-08-20] MEDS: ATORVASTATIN CALCIUM 40 MG TABLET PO SCH (09:14)
[2020-08-20] MEDS: FOLIC ACID 1 MG TABLET PO SCH (09:14)
[2020-08-20] MEDS: LORATADINE 10 MG TABLET PO SCH (09:15)
[2020-08-20] MEDS: LINEZOLID 600 MG/300 ML RTUPB IV SCH (09:15)
[2020-08-20] MEDS: THIAMINE HCL 100 MG TABLET PO SCH (09:15)
[2020-08-20] MEDS: PANTOPRAZOLE SODIUM 20 MG TABLET.DR PO SCH (09:15)
[2020-08-20] MEDS: NICOTINE 21 MG/24 HR PATCH.TD24 TD SCH (09:15)
[2020-08-20] MEDS: MULTIVITAMIN TABLET PO SCH (09:15)
[2020-08-20] MEDS: FLUTICASONE/UMECLIDIN/VILANTER 100-62.5-25 MCG/DOSE IH SCH (09:16)
[2020-08-20] MEDS: MIDODRINE HCL 5 MG TABLET PO SCH ×3 (09:16→17:07)
[2020-08-20] MEDS: RINGERS SOLUTION,LACTATED 1,000 ML IV PRN ×2 (09:17→21:08)
[2020-08-20] MEDS: ACETAMINOPHEN 325 MG TABLET PO PRN (09:25)
[2020-08-20] MEDS: SODIUM HYPOCHLORITE 0.25% SOLN 473 ML BOTTLE TOP SCH (09:25)
--- NOTE | 2020-08-20 14:27 | PDOC PROGRESS REPORT ---
Subjective Progress Note for:: 08/20/20 Subjective:: ANALY NEVAREZ is a 65 year old male with a complicated medical history including chronic respiratory failure (on home O2; previously intubated) secondary to COPD, RONIT, CHF, and morbid obesity, also with history of PVD, chronic BLE lymphedema, GERD, CKD, tobacco dependence, alcohol dependence, and opiate dependence all with continuous use who was admitted 08/19/2020 with hypotension and bilateral lower extremity cellulitis. Patient was seen on morning rounds. He was found resting in bed, comfortably, on his baseline oxygen therapy. He states that he is feeling well; again states he is ready to go home. Ambulated well in the hallway w/ PT yesterday. Denies foot pain. He further denies fever, chills, chest pain, palpitations, dyspnea, orthopnea, abdominal pain, nausea vomiting and diarrhea. Discussed improved CARMELA and hypotension. Orthostatic blood pressures are negative; blood pressures overall improved. Discussed possible d/c tomorrow if renal function is returned to nml. All questions answered. No concerns per nursing. Reason For Visit: HYPOTENSION,BLE CELLULITIS Physical Exam Vital Signs: Temp Pulse Resp BP Pulse Ox 97.9 F 71 20 110/62 94 08/20/20 12:13 08/20/20 12:13 08/20/20 12:13 08/20/20 06:39 08/20/20 12:13 Intake & Output 08/19/20 08/20/20 08/21/20 06:59 06:59 06:59 Intake Total 3240 2816 420 Output Total 1976 2250 525 Balance 1264 566 -105 Weight 114.6 kg 117.6 kg General appearance: PRESENT: no acute distress, cooperative, obese, well- developed, well-nourished Head exam: PRESENT: atraumatic, normocephalic Eye exam: PRESENT: conjunctiva pink, EOMI, PERRLA. ABSENT: scleral icterus Mouth exam: PRESENT: moist, tongue midline Teeth exam: PRESENT: poor dentation Respiratory exam: PRESENT: clear to auscultation lui, symmetrical, unlabored, o ther - baseline oxygen requirement. ABSENT: rales, rhonchi, wheezes Cardiovascular exam: PRESENT: RRR. ABSENT: diastolic murmur, rubs, systolic murmur Vascular exam: PRESENT: normal capillary refill Extremities exam: PRESENT: full ROM, pedal edema - +1 L>R, +2 edema - Right lower extremity; resolved on left superior ankle.. ABSENT: calf tenderness, clubbing Neurological exam: PRESENT: alert, awake, oriented to person, oriented to place, oriented to time, oriented to situation, CN II-XII grossly intact. ABSENT: motor sensory deficit Psychiatric exam: PRESENT: appropriate affect, normal mood. ABSENT: homicidal ideation, suicidal ideation Skin exam: PRESENT: dry, warm, other - bilateral chronic lymphedema changes of both lower extremities w/ lichenification bilateral toes. Stage 1 pressure wound L medial malleoulis, serous drainage from between toes to L foot. ABSENT: cyanosis, rash Results Laboratory Results: 08/20/20 04:25 08/20/20 04:25 08/20/20 08/20/20 04:25 04:25 WBC 7.7 RBC 3.13 L Hgb 10.6 L Hct 30.4 L MCV 97 MCH 33.8 H MCHC 34.8 RDW 14.3 H Plt Count 130 L Sodium 138.3 Potassium 4.9 Chloride 109 H Carbon Dioxide 25 Anion Gap 4 L BUN 29 H Creatinine 1.85 H Est GFR ( Amer) 45 L Glucose 101 Calcium 9.0 Impressions: Lower Extremity CT 08/18/20 00:00 IMPRESSION: DIFFUSE SUBCUTANEOUS EDEMA THROUGHOUT THE SOFT TISSUES OF THE DISTAL LEG AND FOOT, PARTICULARLY ON THE DORSAL SURFACE OF THE FOOT. NO DISCRETE ABSCESS. NO BONY DESTRUCTIVE CHANGES OR OTHER FINDINGS CONCERNING FOR OSTEOMYELITIS. Chest X-Ray 08/18/20 11:12 IMPRESSION: NO ACUTE RADIOGRAPHIC FINDING IN THE CHEST. Assessment and Plan - Diagnosis (1) Hypotension Is this a current diagnosis for this admission?: Yes Plan: Improved. Unclear etiology; likely multifactorial secondary to clinical dehydration, EtOH use/abuse, polypharmacy (opiate dependence, Lyrica use), and acute infectious process. AM Cortisol and TSH are nml Orthostatic vital signs are negative. LINO hose; encouraged compression wraps/stockings. Has not been wearing them Continue gentle IVF Continue Midodrine; consider dose increase. Continue to hold home antihypertensives for now (lisinopril, carvedilol, furosemide). Continue to hold home dose Lyrica and oxycodone; may need to resume at lower dose and titrate up as blood pressure allows. Fall precautions. Cultures and antibiotics as below. May require cardiology vs nephrology consultation. PT/OT consultations (2) Acute renal failure Qualifiers: Acute renal failure type: unspecified Qualified Code(s): N17.9 - Acute kidney failure, unspecified Is this a current diagnosis for this admission?: Yes Plan: Improved following IV fluid resuscitation; CR 3.82-> 3.18-> 2.95-> 1.85 Baseline 0.77. Prerenal secondary to hypotension. Previously required short-term dialysis related to vancomycin toxicity ATN. We will continue IV fluids. Avoid nephrotoxic medications as able. Renally dosed where appropriate. Daily weights, strict I&O's. Trend chemistries. Nephrology consultation if does not continue to demonstrate improvement. (3) Bilateral cellulitis of lower leg Is this a current diagnosis for this admission?: Yes Plan: Continue improved appearance; decreased edema and erythema has resolved. WBC nml, remains afebrile. Patient with chronic bilateral lower extremity lymphedema and venous stasis wounds. Shallow ulceration noted to the right medial malleolus with serous drainage between toes of right foot. Mild erythema noted to feet bilaterally; R>L Currently afebrile with normal WBC. However, patient presented with hypotension, lactic acidosis, and CARMELA. CT bilateral extremities pending to evaluate for occult infections/osteomyelitis. Blood cultures negative at 48 hrs. History of ATN related to Vanc toxicity. Received IV Linezolid x3 days; transition to PO Zyvox for total 5 day course of therapy. (4) Lymphedema Is this a current diagnosis for this admission?: Yes Plan: Chronic lymphedema. Follow-up at the wound care clinic for compression wraps. Will consult wound care for continued wraps while admitted. Keep extremities elevated. (5) Stasis ulcer Qualifiers: Venous stasis ulcer site: ankle Varicose vein presence: without varicose veins Laterality: right Non-pressure ulcer stage: limited to breakdown of skin Qualified Code(s): I87.2 - Venous insufficiency (chronic) (peripheral); L97.311 - Non-pressure chronic ulcer of right ankle limited to breakdown of skin Is this a current diagnosis for this admission?: Yes Plan: As above. Dakin's wet-to-dry dressing changes daily. (6) Alcohol dependency Qualifiers: Substance use status: uncomplicated Qualified Code(s): F10.20 - Alcohol dependence, uncomplicated Is this a current diagnosis for this admission?: Yes Plan: No withdrawal this admission. Patient admits to drinking 2 mixed drinks each morning of approximately 4 ounces of liquor each day six pack of beer nightly. Last drink was this morning. He does have a history of alcohol withdrawal with seizures. Placed on daily multivitamin, folic acid, thiamine supplementation. CIWA Score q 4 hours with prn Ativan CIWA scores consistently zero (7) COPD (chronic obstructive pulmonary disease) Qualifiers: COPD type: unspecified COPD Qualified Code(s): J44.9 - Chronic obstructive pulmonary disease, unspecified Is this a current diagnosis for this admission?: Yes Plan: Stable and without exacerbation at this time. Supplemental oxygen as needed maintain oxygen saturations greater than 89%. Continue home dose Claritin Albuterol HFA as needed, Trelegy, and Singulair. Encourage pulmonary toilet with incentive spirometer and flutter valve. No indications for steroid therapy at this time. (8) GERD (gastroesophageal reflux disease) Qualifiers: Esophagitis presence: esophagitis presence not specified Qualified Code(s): K21.9 - Gastro-esophageal reflux disease without esophagitis Is this a current diagnosis for this admission?: Yes Plan: Continue daily PPI (9) RONIT (obstructive sleep apnea) Is this a current diagnosis for this admission?: Yes Plan: CPAP nightly and prn (10) Obesity (BMI 35.0-39.9 without comorbidity) Is this a current diagnosis for this admission?: Yes Plan: BMI 39.4 Dietary compliance and lifestyle modification are encouraged. Cardiac diet. (11) Tobacco dependence Is this a current diagnosis for this admission?: Yes Plan: Smoking cessation encouraged. Nicotine replacement therapies provided. (12) Lactic acidosis Is this a current diagnosis for this admission?: Yes Plan: Resolved following IV fluid resuscitation. Cultures and antibiotics as above. - Time Time Spent with patient: 35 or more minutes Medications reviewed and adjusted accordingly: Yes Anticipated Discharge Disposition: Home with Home Health Anticipated Discharge Timeframe: within 48 hours
[2020-08-20] MEDS: RIVAROXABAN 10 MG TABLET PO SCH (17:07)
[2020-08-20] MEDS: OXYCODONE HCL IR 5 MG TABLET PO PRN (18:29)
[2020-08-20] MEDS: LINEZOLID 600 MG TABLET PO SCH (21:05)
[2020-08-20] MEDS: TRAZODONE HCL 50 MG TABLET PO SCH (21:06)
[2020-08-20] MEDS: MONTELUKAST SODIUM 10 MG TABLET PO SCH (21:06)
[2020-08-21] MEDS ORDERED: PANTOPRAZOLE SODIUM 20 MG TABLET.DR PO SCH (06:00)
[2020-08-21] MEDS: FOLIC ACID 1 MG TABLET PO SCH (09:05)
[2020-08-21] MEDS: THIAMINE HCL 100 MG TABLET PO SCH (09:05)
[2020-08-21] MEDS: LINEZOLID 600 MG TABLET PO SCH (09:06)
[2020-08-21] MEDS: FERROUS SULFATE 325 MG TABLET PO SCH (09:06)
[2020-08-21] MEDS: LORATADINE 10 MG TABLET PO SCH (09:06)
[2020-08-21] MEDS: DOCUSATE SODIUM 100 MG CAPSULE PO SCH (09:08)
[2020-08-21] MEDS: MIDODRINE HCL 5 MG TABLET PO SCH ×2 (09:14→13:28)
[2020-08-21] MEDS: NICOTINE 21 MG/24 HR PATCH.TD24 TD SCH (09:15)
[2020-08-21] MEDS: MULTIVITAMIN TABLET PO SCH (09:16)
[2020-08-21] MEDS: SODIUM HYPOCHLORITE 0.25% SOLN 473 ML BOTTLE TOP SCH (09:17)
[2020-08-21] MEDS: FLUTICASONE/UMECLIDIN/VILANTER 100-62.5-25 MCG/DOSE IH SCH (09:18)
[2020-08-21] MEDS: RINGERS SOLUTION,LACTATED 1,000 ML IV PRN (09:21)
[2020-08-21 09:30] LABS: ANION GAP 5 (5-19); BLOOD UREA NITROGEN 19 mg/dL (7-20); CALCIUM 9.2 mg/dL (8.4-10.2); CARBON DIOXIDE 25 mmol/L (22-30); CHLORIDE 109 mmol/L (98-107); GLUCOSE 97 mg/dL (75-110); POTASSIUM 4.7 mmol/L (3.6-5.0)
[2020-08-21] MEDS: OXYCODONE HCL IR 5 MG TABLET PO PRN (10:10)
[2020-08-21 13:23] VITALS: BP 90/42
[2020-08-21] MEDS ORDERED: ATORVASTATIN CALCIUM 40 MG TABLET PO SCH (22:00)
--- NOTE | 2020-08-22 13:47 | PDOC DISCHARGE SUMMARY ---
Impression - Admit/DC Date/PCP Admission Date/Primary Care Provider: 08/19/20 13:42 CRYSTAL DURBIN MD Discharge Date: 08/21/20 - Discharge Diagnosis (1) Hypotension Is this a current diagnosis for this admission?: Yes (2) Acute renal failure Is this a current diagnosis for this admission?: Yes (3) Bilateral cellulitis of lower leg Is this a current diagnosis for this admission?: Yes (4) Lymphedema Is this a current diagnosis for this admission?: Yes (5) Stasis ulcer Is this a current diagnosis for this admission?: Yes (6) Alcohol dependency Is this a current diagnosis for this admission?: Yes (7) COPD (chronic obstructive pulmonary disease) Is this a current diagnosis for this admission?: Yes (8) GERD (gastroesophageal reflux disease) Is this a current diagnosis for this admission?: Yes (9) RONIT (obstructive sleep apnea) Is this a current diagnosis for this admission?: Yes (10) Obesity (BMI 35.0-39.9 without comorbidity) Is this a current diagnosis for this admission?: Yes (11) Tobacco dependence Is this a current diagnosis for this admission?: Yes (12) Lactic acidosis Is this a current diagnosis for this admission?: Yes - Additional Information Resuscitation Status: Full Code Discharge Diet: Cardiac Discharge Activity: Activity As Tolerated, Balance Activity w/Rest, Keep Legs Elevated, Slowly Increase Activity Referrals: [facility] [Outside] (NO ANSWER A MESSAGE WAS LEFT FOR OFFICE STAFF TO CALL PATIENT WITH A FOLLOW UP APPT.) WOUND CARE [Outside] - 08/25/20 10:00 am ZHENG MORA NP [NO LOCAL MD] - Prescriptions: Sulfamethoxazole/Trimethoprim [Bactrim Ds Tablet] 1 each PO Q12 #10 tablet Nicotine [Nicoderm 21 mg/24 Hr Transderm Patch] 1 each TD DAILY #30 patch.td24 Home Medications: Atorvastatin Calcium 40 mg PO DAILY 06/07/18 Loratadine [Claritin] 10 mg PO DAILY 06/07/18 Montelukast Sodium [Singulair 10 mg Tablet] 10 mg PO QHS 06/07/18 Naloxegol Oxalate [Movantik] 25 mg PO DAILY 06/07/18 Trazodone HCl [Desyrel] 300 mg PO QHS 06/07/18 Albuterol Sulfate [Proair HFA Inhalation Aerosol 8.5 gm MDI] 1 puff IH Q6HP PRN 07/11/19 Docusate Sodium [Colace 100 mg Capsule] 100 mg PO BID 06/08/20 Ferrous Sulfate [Feosol 325 mg Tablet] 325 mg PO DAILY 06/08/20 Fluticasone/Umeclidin/Vilanter [Trelegy 100-62.5-25 Mcg Ellipta 14 Dose/Dpi] 1 puff IH DAILY 06/08/20 Folic Acid [Folvite 1 mg Tablet] 1 mg PO DAILY 06/08/20 Omeprazole 20 mg PO DAILY 06/08/20 Rivaroxaban [Xarelto] 20 mg PO QPM 06/08/20 Carvedilol [Coreg 3.125 mg Tablet] 3.125 mg PO Q12 #60 tablet 06/14/20 Sodium Hypochlorite [Dakin's 0.25% Soln 473 ml] 1 applic TOP DAILY 08/18/20 Acetaminophen [Tylenol 325 mg Tablet] 650 mg PO Q4HP PRN tablet 08/21/20 Furosemide [Lasix 40 mg Tablet] 40 mg PO QAM #0 08/21/20 Nicotine [Nicoderm 21 mg/24 Hr Transderm Patch] 1 each TD DAILY #30 patch.td24 08/21/20 Oxycodone HCl [Oxy-Ir 5 mg Tablet] 5 mg PO Q6HP PRN #0 08/21/20 Sulfamethoxazole/Trimethoprim [Bactrim Ds Tablet] 1 each PO Q12 #10 tablet 08/21/20 History of Present Illiness History of Present Illness: ANALY NEVAREZ is a 65 year old male with a complicated medical history including chronic respiratory failure (on home O2; previously intubated) secondary to COPD, RONIT, CHF, and morbid obesity, also with history of PVD, chronic BLE lymphedema, GERD, CKD, tobacco dependence, alcohol dependence, and opiate dependence all with continuous use who presented to the emergency department today from the wound care clinic after being noted to have hypotension. Per EMS, initial systolic BP in the 60s. Evaluation in the emergency department revealed hypotension (78/40) and otherwise normal vital signs. Mild anemia(Hgb 11.4), mildly elevated INR (1.44), mild hyponatremia (Na 133.5), acute kidney injury (Cr 3.82/BUN 42), lactic acidosis (4.1), negative urinalysis, and serum EtOH 23. CXR is benign. He is provided a total of 3.5 L IV fluid and referred to the hospital service for further evaluation management of the above-stated findings. Hospital Course Hospital Course: (1) Hypotension Resolved. Unclear etiology; likely multifactorial secondary to clinical dehydration, EtOH use/abuse, polypharmacy (opiate dependence, Lyrica use), and acute infectious process. AM Cortisol and TSH are nml Orthostatic vital signs are negative. LINO hose; encouraged compression wraps/stockings. Has not been wearing them Continue Midodrine; consider dose increase. Continue to hold home dose Lyrica. Oxycodone was resumed at half dose. Cultures and antibiotics as below. PT/OT consultations (2) Acute renal failure Resolved; CR 3.82-> 3.18-> 2.95-> 1.85-> 1.40 Baseline 0.77. Prerenal secondary to hypotension. Previously required short-term dialysis related to vancomycin toxicity ATN. Received generous IV fluids. Avoid nephrotoxic medications as able. Renally dosed where appropriate. (3) Bilateral cellulitis of lower leg Continue improved appearance; decreased edema and erythema has resolved. WBC nml, remains afebrile. Patient with chronic bilateral lower extremity lymphedema and venous stasis wounds. Shallow ulceration noted to the right medial malleolus with serous drainage between toes of right foot. Mild erythema noted to feet bilaterally; R>L CT bilateral extremities pending to evaluate for occult infections/osteomyelitis. Blood cultures negative at 4 days History of ATN related to Vanc toxicity. Received IV Linezolid x3 days; transition to PO Bactrim to complete course of antibiotics post discharge. (4) Lymphedema Chronic lymphedema. Follow-up at the wound care clinic for compression wraps. Keep extremities elevated when not ambulating. (5) Stasis ulcer As above. Dakin's wet-to-dry dressing changes daily. Outpatient wound care follow up. (6) Alcohol dependency No withdrawal this admission. Patient admits to drinking 2 mixed drinks each morning of approximately 4 ounces of liquor each day six pack of beer nightly. Last drink was this morning. He does have a history of alcohol withdrawal with seizures. Placed on daily multivitamin, folic acid, thiamine supplementation. CIWA Score q 4 hours with prn Ativan CIWA scores consistently zero (7) COPD (chronic obstructive pulmonary disease) Stable and without exacerbation at this time. Supplemental oxygen as needed maintain oxygen saturations greater than 89%. Continue home dose Claritin Albuterol HFA as needed, Trelegy, and Singulair. Encourage pulmonary toilet with incentive spirometer and flutter valve. No indications for steroid therapy at this time. (8) GERD (gastroesophageal reflux disease) Continue daily PPI (9) RONIT (obstructive sleep apnea) CPAP nightly and prn (10) Obesity (BMI 35.0-39.9 without comorbidity) BMI 39.46 Dietary compliance and lifestyle modification are encouraged. Cardiac diet (11) Tobacco dependence Smoking cessation encouraged. Nicotine replacement therapies provided. (12) Lactic acidosis Resolved. Cultures and antibiotics as above. Physical Exam Vital Signs: Temp Pulse Resp BP Pulse Ox 98.1 F 66 16 90/42 L 96 08/21/20 13:15 08/21/20 13:15 08/21/20 13:15 08/21/20 13:15 08/21/20 13:15 Intake & Output 08/21/20 08/22/20 08/23/20 06:59 06:59 06:59 Intake Total 3102 1000 Output Total 1525 Balance 1577 1000 Weight 118 kg General appearance: PRESENT: no acute distress, cooperative, morbidly obese, well-developed, well-nourished Head exam: PRESENT: atraumatic, normocephalic Eye exam: PRESENT: conjunctiva pink, EOMI, PERRLA. ABSENT: scleral icterus Mouth exam: PRESENT: moist, tongue midline Teeth exam: PRESENT: poor dentation Respiratory exam: PRESENT: clear to auscultation lui, symmetrical, unlabored, other - Baseline oxygen requirement. ABSENT: rales, rhonchi, wheezes Cardiovascular exam: PRESENT: RRR. ABSENT: diastolic murmur, rubs, systolic murmur Pulses: PRESENT: normal dorsalis pedis pul Vascular exam: PRESENT: normal capillary refill Extremities exam: PRESENT: full ROM, pedal edema - +1 L>R, +2 edema - Right lower extremity; resolved on left superior ankle. ABSENT: calf tenderness, clubbing Musculoskeletal exam: PRESENT: ambulatory Neurological exam: PRESENT: alert, awake, oriented to person, oriented to place, oriented to time, oriented to situation, CN II-XII grossly intact. ABSENT: motor sensory deficit Psychiatric exam: PRESENT: appropriate affect, normal mood. ABSENT: homicidal ideation, suicidal ideation Skin exam: PRESENT: dry, warm, other - bilateral chronic lymphedema changes of both lower extremities w/ lichenification bilateral toes. Stage 1 pressure wound L medial malleoulis, serous drainage from between toes to L foot. ABSENT: cyanosis, rash Results Laboratory Results: WBC 7.7 10^3/uL (4.0-10.5) 08/20/20 04:25 RBC 3.13 10^6/uL (4.35-5.55) L 08/20/20 04:25 Hgb 10.6 g/dL (13.5-17.0) L 08/20/20 04:25 Hct 30.4 % (37.9-51.0) L 08/20/20 04:25 MCV 97 fl (80-97) 08/20/20 04:25 MCH 33.8 pg (27.0-33.4) H 08/20/20 04:25 MCHC 34.8 g/dL (32.0-36.0) 08/20/20 04:25 RDW 14.3 % (11.5-14.0) H 08/20/20 04:25 Plt Count 130 10^3/uL (150-450) L 08/20/20 04:25 Lymph % (Auto) 49.8 % (13-45) H 08/19/20 05:53 Baker % (Auto) 11.7 % (3-13) 08/19/20 05:53 Eos % (Auto) 1.7 % (0-6) 08/19/20 05:53 Baso % (Auto) 0.9 % (0-2) 08/19/20 05:53 Reticulocyte # 0.061 10^6/uL (0.028-0.122) 08/19/20 05:53 Absolute Neuts (auto) 2.6 10^3/uL (1.7-8.2) 08/19/20 05:53 Absolute Lymphs (auto) 3.6 10^3/uL (0.5-4.7) 08/19/20 05:53 Absolute Monos (auto) 0.8 10^3/uL (0.1-1.4) 08/19/20 05:53 Absolute Eos (auto) 0.1 10^3/uL (0.0-0.6) 08/19/20 05:53 Absolute Basos (auto) 0.1 10^3/uL (0.0-0.2) 08/19/20 05:53 Seg Neutrophils % 35.9 % (42-78) L 08/19/20 05:53 Retic Count (auto) 1.75 % (0.66-2.85) 08/19/20 05:53 PT 17.7 SEC (11.4-15.4) H 08/18/20 11:18 INR 1.44 08/18/20 11:18 VBG pH 7.29 (7.30-7.42) L 08/18/20 11:18 VBG pCO2 46.1 mmHg (35-63) 08/18/20 11:18 VBG HCO3 21.7 mmol/L (20-32) 08/18/20 11:18 VBG Base Excess -4.9 mmol/L 08/18/20 11:18 Sodium 138.6 mmol/L (137-145) 08/21/20 08:20 Potassium 4.7 mmol/L (3.6-5.0) 08/21/20 08:20 Chloride 109 mmol/L (98-107) H 08/21/20 08:20 Carbon Dioxide 25 mmol/L (22-30) 08/21/20 08:20 Anion Gap 5 (5-19) 08/21/20 08:20 BUN 19 mg/dL (7-20) 08/21/20 08:20 Creatinine 1.40 mg/dL (0.52-1.25) H 08/21/20 08:20 Est GFR ( Amer) > 60 (>60) 08/21/20 08:20 Est GFR (MDRD) Non-Af 51 (>60) L 08/21/20 08:20 Glucose 97 mg/dL (75-110) 08/21/20 08:20 POC Glucose 91 mg/dL (70-110) 08/18/20 11:17 Lactic Acid 1.2 mmol/L (0.7-2.1) 08/18/20 17:48 Calcium 9.2 mg/dL (8.4-10.2) 08/21/20 08:20 Iron 165.8 ug/dL (49-181) 08/19/20 05:53 TIBC 220 ug/dL (250-450) L 08/19/20 05:53 % Saturation 75 % 08/19/20 05:53 Ferritin 428.00 ng/mL (17.9-464.0) 08/19/20 05:53 Total Bilirubin 0.6 mg/dL (0.2-1.3) 08/18/20 11:18 Direct Bilirubin 0.4 mg/dL (0.0-0.4) 08/18/20 11:18 Neonat Total Bilirubin Not Reportable 08/18/20 11:18 Neonat Direct Bilirubin Not Reportable 08/18/20 11:18 Neonat Indirect Bili Not Reportable 08/18/20 11:18 AST 29 U/L (17-59) 08/18/20 11:18 ALT 13 U/L (<50) 08/18/20 11:18 Alkaline Phosphatase 72 U/L (38-126) 08/18/20 11:18 Total Protein 6.6 g/dL (6.3-8.2) 08/18/20 11:18 Albumin 3.3 g/dL (3.5-5.0) L 08/18/20 11:18 Vitamin B12 329.0 pg/mL (239-931) 08/19/20 05:53 Folate 20.00 ng/mL (>2.76) 08/19/20 05:53 TSH 1.42 uIU/mL (0.47-4.68) 08/19/20 05:53 Cortisol AM Sample 6.17 ug/dL (4.46-22.7) 08/19/20 05:53 Urine Color STRAW 08/18/20 13:25 Urine Appearance CLEAR 08/18/20 13:25 Urine pH 5.0 (5.0-9.0) 08/18/20 13:25 Ur Specific Spur 1.005 08/18/20 13:25 Urine Protein NEGATIVE mg/dL (NEGATIVE) 08/18/20 13:25 Urine Glucose (UA) 50 mg/dL (NEGATIVE) H 08/18/20 13:25 Urine Ketones NEGATIVE mg/dL (NEGATIVE) 08/18/20 13:25 Urine Blood SMALL (NEGATIVE) H 08/18/20 13:25 Urine Nitrite (Reflex) NEGATIVE (NEGATIVE) 08/18/20 13:25 Urine Bilirubin NEGATIVE (NEGATIVE) 08/18/20 13:25 Urine Urobilinogen NEGATIVE mg/dL (<2.0) 08/18/20 13:25 Leukocyte Esterase Rfl TRACE (NEGATIVE) H 08/18/20 13:25 Urine RBC (Auto) 0 /HPF 08/18/20 13:25 Urine WBC (Reflex) 3 /HPF 08/18/20 13:25 Urine WBC Clumps RARE /HPF 08/18/20 13:25 Squamous Epi Cells Auto <1 /HPF 08/18/20 13:25 Urine Mucus (Auto) RARE /LPF 08/18/20 13:25 Urine Ascorbic Acid NEGATIVE (NEGATIVE) 08/18/20 13:25 Serum Alcohol 23 mg/dL (NONE DETECTED) 08/18/20 11:18 Impressions: Lower Extremity CT 08/18/20 00:00 IMPRESSION: 1. OBLIQUE FRACTURE OF THE DISTAL 5TH METATARSAL. OLD FRACTURE OF THE DISTAL FIBULA. 2. DIFFUSE SUBCUTANEOUS EDEMA THROUGHOUT THE SOFT TISSUES. NO FOCAL ABSCESS. 3. NO DESTRUCTIVE BONY CHANGES OR OTHER FINDINGS OF OSTEOMYELITIS. Lower Extremity CT 08/18/20 00:00 IMPRESSION: DIFFUSE SUBCUTANEOUS EDEMA THROUGHOUT THE SOFT TISSUES OF THE DISTAL LEG AND FOOT, PARTICULARLY ON THE DORSAL SURFACE OF THE FOOT. NO DISCRETE ABSCESS. NO BONY DESTRUCTIVE CHANGES OR OTHER FINDINGS CONCERNING FOR OSTEOMYELITIS. Chest X-Ray 08/18/20 11:12 IMPRESSION: NO ACUTE RADIOGRAPHIC FINDING IN THE CHEST. Plan Plan of Treatment: Patient is discharged home, in stable condition, with home health nursing services. He is advised follow-up with his primary care provider within 1 week. Keep scheduled wound care appointment on 08/25. Eat a cardiac diet. Take medications as prescribed. Do not smoke. Recommend alcohol cessation with goal of sobriety. Also advised patient would benefit from decreased polypharmacy/sedate of medications. Encourage patient to discontinue Lyrica and to decrease oxycodone from 10 mg every 6 to 5 mg every 6. May benefit from pain management referral. Take other medications as prescribed. Return to the emergency department as needed for concerning symptoms. Time Spent: Greater than 30 Minutes Stroke Is this a Stroke Patient?: No Acute Heart Failure Is this a Heart Failure Patient?: No
== END 2020-08-21 15:11 | disposition home health service (06) | DRG 315 ==
LOC: ER 11:07 → INTOOBSV 13:14 → EH 13:14 → 5 18:16 → OBSVTOIN 08-19 13:42
PROVIDERS: ADMIT Hospitalist; ATTEND Registered Nurse
DX: I95.89 Other hypotension (principal); N17.9 Acute kidney failure, unspecified; J96.10 Chronic respiratory failure, unspecified whether with hypoxia or hypercapnia; L97.321 Non-pressure chronic ulcer of left ankle limited to breakdown of skin; F11.20 Opioid dependence, uncomplicated; E87.1 Hypo-osmolality and hyponatremia; L03.116 Cellulitis of left lower limb; L03.115 Cellulitis of right lower limb; E87.2 Acidosis; I13.0 Hypertensive heart and chronic kidney disease with heart failure and stage 1 through stage 4 chronic kidney disease, or unspecified chronic kidney disease; Z99.81 Dependence on supplemental oxygen; J44.9 Chronic obstructive pulmonary disease, unspecified; G47.33 Obstructive sleep apnea (adult) (pediatric); E66.01 Morbid (severe) obesity due to excess calories; K21.9 Gastro-esophageal reflux disease without esophagitis; F10.20 Alcohol dependence, uncomplicated; D64.9 Anemia, unspecified; Z86.718 Personal history of other venous thrombosis and embolism; I25.10 Atherosclerotic heart disease of native coronary artery without angina pectoris; E78.5 Hyperlipidemia, unspecified; I73.9 Peripheral vascular disease, unspecified; F17.210 Nicotine dependence, cigarettes, uncomplicated; L89.511 Pressure ulcer of right ankle, stage 1; I87.2 Venous insufficiency (chronic) (peripheral); K44.9 Diaphragmatic hernia without obstruction or gangrene; I50.9 Heart failure, unspecified; I89.0 Lymphedema, not elsewhere classified; K70.30 Alcoholic cirrhosis of liver without ascites; N18.9 Chronic kidney disease, unspecified; I25.2 Old myocardial infarction; Z86.711 Personal history of pulmonary embolism; Z86.14 Personal history of Methicillin resistant Staphylococcus aureus infection; Z95.5 Presence of coronary angioplasty implant and graft; Z82.49 Family history of ischemic heart disease and other diseases of the circulatory system; Z88.5 Allergy status to narcotic agent; Z88.1 Allergy status to other antibiotic agents; Z79.01 Long term (current) use of anticoagulants; Z79.899 Other long term (current) drug therapy; Z68.39 Body mass index [BMI] 39.0-39.9, adult; Z23 Encounter for immunization
CPT/HCPCS: 36415; 71045; 80048; 80053; 80307; 81001; 82533; 82607; 82728; 82746; 82803; 82962; 83540; 83550; 83605; 84443; 85025; 85027; 85045; 85610; 87040; 90471; 90686; 93005; 93010; 94660; 96361; 96374; 99285; G0008; G0378; J1170; J1644; J2020; J2060; J3490; J7030; J7040; J7120

== ENCOUNTER 2020-10-04 17:38 | Emergency (ER) | payer MEDICARE ==
--- NOTE | 2020-10-04 18:22 | RADIOLOGY REPORT (SQ) ---
EXAM DESCRIPTION: RIBS RIGHT W/PA CHEST IMAGES COMPLETED DATE/TIME: 10/04/2020 6:13 pm REASON FOR STUDY: fall; pain; obvious deformity COMPARISON: None. TECHNIQUE: Frontal view of the chest and additional views of the right ribs acquired. NUMBER OF VIEWS: Five view. LIMITATIONS: None. FINDINGS: FRONTAL CXR: No pneumothorax. No pleural effusion. Basilar atelectasis/scarring. RIBS: No displaced rib fractures. No lytic or blastic bony lesions. OTHER: Right shoulder dislocation, evaluated separately. IMPRESSION: NO PNEUMOTHORAX. NO DISPLACED RIB FRACTURES. COMMENT: SITE OF TRAUMA/COMPLAINT MARKED/STAMP COMPLETED: NO. TECHNICAL DOCUMENTATION: JOB ID: [id number] 2010 [employer]- All Rights Reserved Reading location - IP/workstation name: [email or web address]
--- NOTE | 2020-10-04 18:23 | RADIOLOGY REPORT (SQ) ---
EXAM DESCRIPTION: SHOULDER RIGHT 2 OR MORE VIEWS IMAGES COMPLETED DATE/TIME: 10/04/2020 6:14 pm REASON FOR STUDY: fall; pain; obvious deformity COMPARISON: None. NUMBER OF VIEWS: Two views. TECHNIQUE: Frontal and lateral images acquired of the right shoulder. LIMITATIONS: Limited positioning. FINDINGS: MINERALIZATION: Normal. BONES: No acute fracture. No worrisome bone lesions. JOINTS: Anterior dislocation of the humeral head. VISUALIZED LUNGS AND RIBS: No pneumothorax. No rib fracture. SOFT TISSUES: No radiopaque foreign body. OTHER: No other significant finding. IMPRESSION: ANTERIOR DISLOCATION OF THE HUMERAL HEAD. NO GROSS FRACTURE, ALTHOUGH LIMITED VISUALIZA TION. TECHNICAL DOCUMENTATION: JOB ID: [id number] 2010 [employer]- All Rights Reserved Reading location - IP/workstation name: [email or web address]
--- NOTE | 2020-10-04 18:33 | ER Document Report ---
ED General - General Stated Complaint: SHOULDER AND ARM PAIN Time Seen by Provider: 10/04/20 18:13 Primary Care Provider: CRYSTAL DURBIN MD [Primary Care Provider] - Follow up as needed Notes: HPI: 65-year-old male who presents today stating he was walking when he lost his balance and fell on his right shoulder. He complains of pain to the right shoulder and right ribs. He is on Xarelto. He denies hitting his head. He denies pain to any other location including head, neck, hips and back. Patient states history of dislocated shoulder "many years ago". He denies any recent alcohol abuse. Long extensive history as recorded. On baseline oxygen. Patient denies any chest pain, shortness of breath, vomiting, fevers, diarrhea, lightheadedness, dizziness, or any other inciting incidents causing the fall. ROS: See HPI All other review of systems reviewed and otherwise negative Reviewed vital signs and nursing note as charted by RN. PHYSICAL EXAM: CONSTITUTIONAL: Alert and oriented and responds appropriately to questions. Well-appearing; well-nourished HEAD: Normocephalic; atraumatic EYES: PERRL; full extraocular range of motion ENT: Normal nose; no rhinorrhea; moist mucous membranes; pharynx without lesions noted NECK: Supple without meningismus; non-tender; no cervical lymphadenopathy, no masses CARD: Regular rate and rhythm; no murmurs; symmetric distal pulses RESP: Normal chest excursion without splinting or tachypnea; no tenderness to palpation of the ribs with no swelling, erythema, or ecchymosis; breath sounds clear and equal bilaterally; minimal wheezing bilaterally ABD/GI: Normal bowel sounds; non-distended; soft, non-tender BACK: The back appears normal and is non-tender to palpation EXT: Decreased range of motion of the right shoulder with loss of fullness to the lateral deltoid. Sensation is intact. No tenderness to the humerus, elbow, forearm, wrist, or hand SKIN: No acute lesions noted NEURO: CN 2-12 intact; 5/5 bilateral upper and lower extremity strength with sensation intact to light touch PSYCH: The patient's mood and manner are appropriate. Grooming and personal hygiene are appropriate. TRAVEL OUTSIDE OF THE [place] IN LAST 30 DAYS: No - Related Data Allergies/Adverse Reactions: cephalexin monohydrate [From Keflex] Allergy (Intermediate, Verified 08/18/20 11:28) codeine Allergy (Verified 08/18/20 11:28) morphine Allergy (Verified 08/18/20 11:28) Past Medical History - Social History Smoking Status: Unknown if Ever Smoked Family History: COPD, Hypertension - Past Medical History Cardiac Medical History: Reports: Hx Congestive Heart Failure, Hx Coronary Ar sharonda Disease, Hx DVT, Hx Heart Attack, Hx Hypercholesterolemia, Hx Hypertension, Hx Peripheral Vascular Disease, Hx Pulmonary Embolism Pulmonary Medical History: Reports: Hx Asthma, Hx Bronchitis, Hx COPD, Hx Pneumonia, Hx Respiratory Failure, Hx Sleep Apnea - Uses CPAP at home Denies: Hx Tuberculosis Neurological Medical History: Denies: Hx Seizures Endocrine Medical History: Denies: Hx Diabetes Mellitus Type 2, Hx Hypothyroidism Renal/ Medical History: Denies: Hx Peritoneal Dialysis GI Medical History: Reports: Hx Cirrhosis - Alcoholic, Hx Gastroesophageal Reflux Disease, Hx Hiatal Hernia, Hx Ulcer Psychiatric Medical History: Denies: Hx Depression Infectious Medical History: Reports: Hx MRSA, 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 few years ago. Denies: Hx Appendectomy, Hx Bowel Surgery, Hx Coronary Artery Bypass Graft, Hx Gastric Bypass Surgery, Hx Pacemaker - Immunizations Hx Diphtheria, Pertussis, Tetanus Vaccination: Yes Hx Pneumococcal Vaccination: 03/25/13 Physical Exam - Vital signs Vitals: Temp Pulse Resp BP Pulse Ox 98.4 F 80 16 118/69 96 10/04/20 17:39 10/04/20 17:39 10/04/20 17:39 10/04/20 17:39 10/04/20 17:39 Course - Re-evaluation Re-evalutation: 10/04/20 18:32 Given the above history and physical, an x-ray of the right shoulder and ribs were ordered. No obvious fractures, pneumothorax, or lung contusion. Patient does have an anterior dislocation without fracture of the right shoulder. Patient is on chronic oxygen. Vital signs as recorded. I have explained the risks and benefits of conscious sedation to the patient. I will attempt to manually manipulate the shoulder prior to conscious sedation. If this is unsuccessful, patient does understand the risks associated with the sedation and I will attempt to provide the smallest amount possible to perform the appropriate shoulder dislocation reduction. Given that the patient adamantly denies hitting his head or any neck pain, any inciting incident causing the fall other than losing his balance, I will hold on further imaging or laboratory work at this time. 10/04/20 19:34 Conscious sedation and dislocation reduction went smoothly. Repeat x-rays being taken. 10/04/20 19:39 Repeat x-ray shows dislocation reduction. Sensation intact lateral deltoid. Patient will be discharged home with strict return precautions. Patient understands the importance of not drinking. - Vital Signs Vital signs: Temp Pulse Resp BP Pulse Ox 98.4 F 80 16 118/69 96 10/04/20 17:39 10/04/20 17:39 10/04/20 17:39 10/04/20 17:39 10/04/20 17:39 Procedures - Conscious Sedation Conscious sedation Consent obtained: Yes Prior complications: Procedural sedation Pt with a severe systemic disease.: P3. - ASA Classification. Airway Evaluation: Abnormal 3-3-2 rule Mallampati Classification: Class 2 Used during procedure: Suction available, IV access obtained, Pulse ox on pt., lasting room supervisor on pt. Medications administered: Ketamine Reversal agents: None I personally performed/intraservice time: Sedation, Procedure, 30 min or less Complications: No Notes: I used a very small amount, 50 mg, and was able to perform the sedation and reduction without any desaturations. - Joint Reduction/Fracture Care Right Shoulder Consent obtained: Yes Conscious sedation: Yes Pre-procedure NV exam: Yes Manipulation comment: Traction countertraction Post-procedure NV exam: Yes Post-reduction x-ray: Joint reduced Reduction attempts: 1 Complications: No Discharge - Discharge Clinical Impression: Accidental fall Qualifiers: Encounter type: initial encounter Qualified Code(s): W19.XXXA - Unspecified fall, initial encounter Dislocation of right shoulder joint Qualifiers: Encounter type: initial encounter Qualified Code(s): S43.004A - Unspecified dislocation of right shoulder joint, initial encounter Contusion of rib on right side Qualifiers: Encounter type: initial encounter Qualified Code(s): S20.211A - Contusion of right front wall of thorax, initial encounter Condition: Good Disposition: HOME, SELF-CARE Additional Instructions: Come back immediately for any increased pain, discoloration or swelling of the arm, shortness of breath, weakness or numbness, fevers, or any other acute problems. Please follow-up with orthopedics as discussed. Please refrain from any alcohol beverages as discussed. Referrals: CRYSTAL DURBIN MD [Primary Care Provider] - Follow up as needed JOSE COPE DO [ACTIVE STAFF] - Follow up as needed
[2020-10-04] MEDS ORDERED: KETAMINE HCL INJ 500 MG/10 ML VIAL IV ONE (19:03)
--- NOTE | 2020-10-04 20:41 | RADIOLOGY REPORT (SQ) ---
EXAM DESCRIPTION: SHOULDER RIGHT two views CLINICAL HISTORY: 65 years Male, shoulder reduction COMPARISON: Radiographs of the right shoulder obtained earlier in the evening at 5:53 PM FINDINGS: There is been reduction of the shoulder dislocation. The joint is not seen in profile and this makes it difficult to assess for fracture. However, there appears to be an indentation in the superior lateral humeral head suggesting a Hill-Sachs fracture. Ac joint arthropathy is noted. IMPRESSION: Reduction of shoulder dislocation. Probable Hill-Sachs fracture.
[2020-10-04 22:04] VITALS: BP 140/77
== END 2020-10-04 22:04 | disposition home or self-care (01) ==
LOC: ER 17:38
DX: S43.004A Unspecified dislocation of right shoulder joint, initial encounter (principal); S20.211A Contusion of right front wall of thorax, initial encounter; R07.81 Pleurodynia; W18.30XA Fall on same level, unspecified, initial encounter; I50.9 Heart failure, unspecified; I11.0 Hypertensive heart disease with heart failure; I25.2 Old myocardial infarction
CPT/HCPCS: 99284; 99152; 71101; 73030; 23650; J3490

== ENCOUNTER 2020-10-20 14:40 | Emergency (ER) | payer MEDICARE ==
--- NOTE | 2020-10-20 15:30 | RADIOLOGY REPORT (SQ) ---
EXAM DESCRIPTION: SHOULDER RIGHT 2 OR MORE VIEWS IMAGES COMPLETED DATE/TIME: 10/20/2020 3:14 pm REASON FOR STUDY: obvious deformity COMPARISON: 10/04/2020. NUMBER OF VIEWS: Three views. TECHNIQUE: Internal rotation, external rotation, and Y view images acquired of the right shoulder. LIMITATIONS: None. FINDINGS: MINERALIZATION: Normal. BONES: No acute fracture. Small osteophytes in the acromioclavicular joint. No worrisome bone lesio ns. JOINTS: No dislocation. VISUALIZED LUNGS AND RIBS: No pneumothorax. No rib fracture. SOFT TISSUES: No radiopaque foreign body. OTHER: No other significant finding. IMPRESSION: MILD DEGENERATIVE CHANGES. NO RADIOGRAPHIC EVIDENCE OF ACUTE INJURY. TECHNICAL DOCUMENTATION: JOB ID: [id number] 2010 [employer]- All Rights Reserved Reading location - IP/workstation name: [email or web address]
--- NOTE | 2020-10-20 16:52 | ER Document Report ---
ED Extremity Problem, Upper <MARGOT CORRIGAN Shima - Last Filed: 10/20/20 18:20> - General TRAVEL OUTSIDE OF THE [place] IN LAST 30 DAYS: No <BEV BANUELOS - Last Filed: 10/20/20 21:12> - General Chief Complaint: Shoulder Pain Stated Complaint: SHOULDER PAIN Time Seen by Provider: 10/20/20 16:36 - HPI Notes: 65-year-old gentleman presents to ED for evaluation of right shoulder pain for the last 2 to 3 days. Patient reports he fell several weeks ago and injured his left ribs however has been fully evaluated that without complaint. Patient notes that the shoulder pain is worse with range of motion. Denies new injury. Denies any pain into the chest, neck, or back. Denies pain into the lower extremity. Denies paresthesias. Endorses no other complaints at this time. (BEV BANUELOS) - Related Data Allergies/Adverse Reactions: cephalexin monohydrate [From Keflex] Allergy (Intermediate, Verified 08/18/20 11:28) codeine Allergy (Verified 08/18/20 11:28) morphine Allergy (Verified 08/18/20 11:28) Past Medical History - Social History Smoking Status: Current Every Day Smoker Frequency of alcohol use: Heavy Drug Abuse: None Family History: COPD, Hypertension - Past Medical History Cardiac Medical History: Reports: Hx Congestive Heart Failure, Hx Coronary Artery Disease, Hx DVT, Hx Heart Attack, Hx Hypercholesterolemia, Hx Hypertension, Hx Peripheral Vascular Disease, Hx Pulmonary Embolism Pulmonary Medical History: Reports: Hx Asthma, Hx Bronchitis, Hx COPD, Hx Pneumonia, Hx Respiratory Failure, Hx Sleep Apnea - Uses CPAP at home Denies: Hx Tuberculosis Neurological Medical History: Denies: Hx Seizures Endocrine Medical History: Denies: Hx Diabetes Mellitus Type 2, Hx Hypothyroidism Renal/ Medical History: Denies: Hx Peritoneal Dialysis GI Medical History: Reports: Hx Cirrhosis - Alcoholic, Hx Gastroesophageal Reflux Disease, Hx Hiatal Hernia, Hx Ulcer Psychiatric Medical History: Denies: Hx Depression Infectious Medical History: Reports: Hx MRSA, 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 Denies: Hx Appendectomy, Hx Bowel Surgery, Hx Coronary Artery Bypass Graft, Hx Gastric Bypass Surgery, Hx Pacemaker - Immunizations Hx Diphtheria, Pertussis, Tetanus Vaccination: Yes Hx Pneumococcal Vaccination: 03/25/13 <BEV BANUELOS - Last Filed: 10/20/20 21:12> Review of Systems <BEV BANUELOS - Last Filed: 10/20/20 21:12> - Review of Systems Notes: Constitutional: Negative for fever. HENT: Negative for sore throat. Eyes: Negative for visual changes. Cardiovascular: Negative for chest pain. Respiratory: Negative for shortness of breath. Gastrointestinal: Negative for abdominal pain, vomiting or diarrhea. Genitourinary: Negative for dysuria. Musculoskeletal: Negative for back pain. Skin: Negative for rash. Neurological: Negative for headaches, weakness or numbness. 10 point ROS negative except as marked above and in HPI. (BEV BANUELOS) Physical Exam <BEV BANUELOS - Last Filed: 10/20/20 21:12> - Vital signs Vitals: Temp 98.0 F 10/20/20 14:40 Notes: General: No apparent distress. Alert and oriented x3. Skin: Intact without any jaundice, pallor, or erythema. Warm and dry. Musculoskeletal: Right Shoulder: Tenderness to palpation along the right proximal humerus with decreased ROM. No erythema or evidence of infected joint. No swelling, ecchymosis, or deformities. NOo tenderness to palpation over elbow with full range of motion. Strength and sensation intact. Brisk capillary refill. Radial pulses 2+ bilaterally. Neuro: GCS 15. (BEV BANUELOS) Course - Laboratory Results Critical Laboratory Results Reviewed: Yes <MARGOT CORRIGAN - Last Filed: 10/20/20 18:20> - Laboratory Results Critical Laboratory Results Reviewed: No Critical Results - Radiology Results Critical Radiology Results Reviewed: No Critical Results <BEV BANUELOS - Last Filed: 10/20/20 21:12> - Re-evaluation Re-evalutation: 10/20/20 21:09 65-year-old male presents to ED for evaluation of right shoulder pain with movement. Xrays were obtained and negative for fracture or dislocation. Imaging was discussed with patient. Patient is advised that soft tissue injury or ligamentous tear cannot be ruled out. Patient is advised to rest, ice and elevate the extremity. Apply ice to the affected area 20 minutes on, 20 minutes off throughout the day. Patient is given a prescription for tylenol. Patient is given a referral to orthopedics for follow up. Understands indications to return to the ED for any new or worsening symptoms. Understands course of management. Patient is agreeable with care plan. (BEV BANUELOS) - Vital Signs Vital signs: Temp Pulse Resp BP Pulse Ox 97.8 F 80 18 114/60 99 10/20/20 18:16 10/20/20 18:16 10/20/20 18:16 10/20/20 18:16 10/20/20 18:16 Discharge <MARGOT CORRIGAN - Last Filed: 10/20/20 18:20> <BEV BANUELOS - Last Filed: 10/20/20 21:12> - Discharge Clinical Impression: Sprain of right shoulder girdle Qualifiers: Encounter type: initial encounter Qualified Code(s): S43.91XA - Sprain of unspecified parts of right shoulder girdle, initial encounter Condition: Stable Disposition: HOME, SELF-CARE Prescriptions: Acetaminophen [Tylenol 325 mg Tablet] 650 mg PO Q6HP PRN #30 tablet PRN Reason: Acetaminophen [Tylenol] 650 mg PO TID #30 capsule
[2020-10-20 18:17] VITALS: BP 114/60
== END 2020-10-20 18:27 | disposition home or self-care (01) ==
LOC: ER 14:40
DX: S43.91XA Sprain of unspecified parts of right shoulder girdle, initial encounter (principal); W19.XXXA Unspecified fall, initial encounter; F17.200 Nicotine dependence, unspecified, uncomplicated; I50.9 Heart failure, unspecified; I25.10 Atherosclerotic heart disease of native coronary artery without angina pectoris; E78.00 Pure hypercholesterolemia, unspecified; I11.0 Hypertensive heart disease with heart failure; I25.2 Old myocardial infarction; Z88.6 Allergy status to analgesic agent; Z86.14 Personal history of Methicillin resistant Staphylococcus aureus infection
CPT/HCPCS: 99283

== ENCOUNTER 2020-10-29 10:20 | Emergency (ER) | payer MEDICARE ==
[2020-10-29] MEDS ORDERED: FENTANYL CITRATE INJ/PF 100 MCG/2 ML AMPUL IV ONE (11:41)
[2020-10-29] MEDS ORDERED: ONDANSETRON HCL INJ/PF 4 MG/2 ML SDV IV ONE (11:41)
--- NOTE | 2020-10-29 11:48 | ER Document Report ---
ED General - General Chief Complaint: Hip Pain Stated Complaint: HIP PAIN Time Seen by Provider: 10/29/20 11:15 Notes: Patient is a 65-year-old male who comes to the emergency department for chief complaint of fall at home. Patient states he woke up on the floor almost 2 days ago now. He states that he came in because he is having a lot of trouble walking with a lot of pain in his right hip area and he also has a lot of pain in his right shoulder. He admits he did hit his head and he has been having intermittent headaches. He also admits to heavy alcohol drinking and alcohol dependence including drinking alcohol today. He is also on Xarelto for history of DVT and CA. Patient also reports some pain in his left lower ribs but this is not as bad. He denies difficulty breathing, passing out again, chest pain otherwise, abdominal pain, focal numbness or weakness, incontinence. Patient also has a history of lymphedema and chronic skin changes, he is to be in wound care but states he was cleared from this and has not been back yet, he does have some open draining sores. He denies fever/chills or discolored drainage. TRAVEL OUTSIDE OF THE [place] IN LAST 30 DAYS: No - Related Data Allergies/Adverse Reactions: cephalexin monohydrate [From Keflex] Allergy (Intermediate, Verified 08/18/20 11:28) codeine Allergy (Verified 08/18/20 11:28) morphine Allergy (Verified 08/18/20 11:28) Past Medical History - General Information source: Patient - Social History Smoking Status: Current Every Day Smoker Smoking Education Provided: Yes - <3 min Frequency of alcohol use: Heavy Drug Abuse: Marijuana Lives with: Alone Family History: COPD, Hypertension Patient has homicidal ideation: No - Past Medical History Cardiac Medical History: Reports: Hx Congestive Heart Failure, Hx Coronary Artery Disease, Hx DVT, Hx Heart Attack, Hx Hypercholesterolemia, Hx Hypertensio n, Hx Peripheral Vascular Disease, Hx Pulmonary Embolism Pulmonary Medical History: Reports: Hx Asthma, Hx Bronchitis, Hx COPD, Hx Pneumonia, Hx Respiratory Failure, Hx Sleep Apnea - Uses CPAP at home Denies: Hx Tuberculosis Neurological Medical History: Denies: Hx Seizures Endocrine Medical History: Denies: Hx Diabetes Mellitus Type 2, Hx Hypothyroidism Renal/ Medical History: Denies: Hx Peritoneal Dialysis GI Medical History: Reports: Hx Cirrhosis - Alcoholic, Hx Gastroesophageal Reflux Disease, Hx Hiatal Hernia, Hx Ulcer Psychiatric Medical History: Denies: Hx Depression Infectious Medical History: Reports: Hx MRSA, 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 Denies: Hx Appendectomy, Hx Bowel Surgery, Hx Coronary Artery Bypass Graft, Hx Gastric Bypass Surgery, Hx Pacemaker - Immunizations Hx Diphtheria, Pertussis, Tetanus Vaccination: Yes Hx Pneumococcal Vaccination: 03/25/13 Review of Systems - Review of Systems Constitutional: See HPI EENT: No symptoms reported Cardiovascular: No symptoms reported Respiratory: No symptoms reported Gastrointestinal: No symptoms reported Genitourinary: No symptoms reported Male Genitourinary: No symptoms reported Musculoskeletal: See HPI Skin: No symptoms reported Hematologic/Lymphatic: No symptoms reported Neurological/Psychological: See HPI Physical Exam - Vital signs Vitals: Temp 97.7 F 10/29/20 10:32 - Notes Notes: GENERAL: Alert, interacts well. No acute distress. HEAD: Normocephalic, atraumatic. EYES: Pupils equal, round, and reactive to light. Extraocular movements intact. ENT: Oral mucosa moist, tongue midline. Oropharynx unremarkable. Airway patent. Nares patent, sinuses non-tender, ear canals unremarkable, TM's intact. NECK: Full range of motion. Supple. Trachea midline. No lymphadenopathy. LUNGS: Decreased but no wheezes, rales, or rhonchi. No respiratory distress. There is some mild tenderness over the left anterior to lower ribs but no wounds or contusions are noted. No severe pain, no crepitus. HEART: Regular rate and rhythm. No murmur ABDOMEN: Soft, non-tender. Non-distended. EXTREMITIES: Pain with palpation to the general right to lateral proximal femoral and hip area. Range of motion of the hip is still present. There is also pain with palpation over the right shoulder at the humeral head but not at the clavicle. Range of motion is present but painful. Normal distal neurovascular exam. Lower extremities with chronic skin changes bilaterally with very significant lymphedema. There are also open sores over the medial aspect near the ankles bilaterally but only clear drainage and no purulent drainage. No noted streaking or overt cellulitis over the area. BACK: no cervical, thoracic, lumbar midline tenderness. No saddle anesthesia, normal distal neurovascular exam. Moves all extremities in full range of motion. NEUROLOGICAL: Alert and oriented x3. Normal speech. Cranial nerves II through XII grossly intact. Strength 5/5 in all extremities. PSYCH: Normal affect, normal mood. SKIN: Warm, dry, normal turgor. No rashes or lesions noted. Course - Re-evaluation Re-evalutation: Patient has no signs of distress. He is on 4 L nasal cannula chronically. Lungs are clear. He has tenderness over the right hip, right shoulder, and mildly over the left ribs on exam but no contusions, wounds, or signs of severe trauma noted. No neurological deficits. Trauma happened over a day ago. Because of his Xarelto use and alcohol use CAT scan of the head was also performed but this was negative. Imaging negative for any acute findings. CBC nonspecific, chemistry somewhat concerning with bicarbonate of 40 but after some time we did perform a venous blood gas and this was not concerning. On reevaluation I discussed with patient. He reports soreness from the fall but now has no other complaints at this time. Patient has a chronic lymphedema with open wounds that are chronic as well, these have clear drainage, he has no fever or leukocytosis. He was referred to wound care. Discussed follow-up and return precautions. Patient states understanding and agreement. - Vital Signs Vital signs: Temp Pulse Resp BP Pulse Ox 97.7 F 14 146/89 H 92 10/29/20 10:32 10/29/20 18:01 10/29/20 18:01 10/29/20 18:01 - Laboratory Results Result Diagrams: 10/29/20 12:50 10/29/20 12:50 Laboratory Results Interpreted: 10/29/20 10/29/20 10/29/20 12:50 12:50 16:57 RBC 3.70 L Hgb 12.4 L Hct 36.6 L MCV 99 H RDW 16.1 H VBG HCO3 35.7 H Potassium 3.5 L Chloride 93 L Carbon Dioxide 40 H* Glucose 117 H Alkaline Phosphatase 127 H Creatine Kinase 46 L Albumin 3.1 L Critical Laboratory Results Reviewed: Yes Attending or Supervising Physician who Reviewed Labs: GAIL BAH - obtained VBG, unremarkable - Radiology Results Critical Radiology Results Reviewed: No Critical Results - EKG Interpretation by Me Additional EKG results interpreted by me: EKG shows sinus rhythm at a rate of 77, QTc prolonged at 503, normal axis. No T wave inversions ST segment changes in consecutive leads. There is artifact present. Discharge - Discharge Clinical Impression: Hip pain, Tobacco dependence, Lymphedema, Chronic wound of extremity Fall Qualifiers: Encounter type: initial encounter Qualified Code(s): W19.XXXA - Unspecified fall, initial encounter Alcohol dependence Qualifiers: Substance use status: uncomplicated Qualified Code(s): F10.20 - Alcohol depende nce, uncomplicated Condition: Stable Disposition: HOME, SELF-CARE Additional Instructions: There is no fracture or concerning injury from your fall seen. You may have some postconcussive headaches, these should resolve with time. See details on this list below. The general soreness from the fall should simply resolve with time. For your wounds follow-up with the wound care clinic referral listed. Use the form. Return for any concerning symptoms including vomiting, passing out, developing fever, or any other concerning or worsening symptoms. Post-Concussion Syndrome Post-concussion syndrome often follows a mild head injury. Dizziness, mild nausea, mild headache, trouble concentrating, and a general sense of "not being right" may persist for a week or two. This is a frequent complication of concussion. However, if the symptoms worsen, or new symptoms develop, you should be re-examined by the physician. There is no specific cure for post-concussion syndrome. You can take mild pain medication such as ibuprofen or acetaminophen. While you should not drive if you are dizzy, you can get back to your regular activities as quickly as the symptoms will allow. And while vigorous exercise may worsen the headache, mild physical activity often is helpful. Sitting and thinking about your symptoms will worsen them. If difficulties continue, you may need referral for special therapy to help you regain full mental function. Call the physician if you are worsening, or if symptoms are still present in one week. Report any new symptoms immediately. Head Injury Precautions At this point, there is no evidence that your head injury is serious. Observation is necessary, however. During the first 24 hours, check to see approximately every two to three hours that the patient is easily arousable, responds normally, and can perform common tasks such as walking without difficulty. Contact your doctor or go to the hospital if any of the following things occur: Persistent vomiting, difficulty in arousing the patient, worsening or continued headache, or failure to improve as expected. Head injuries can cause symptoms that persist for a few days or even a few weeks.
--- NOTE | 2020-10-29 12:23 | RADIOLOGY REPORT (SQ) ---
EXAM DESCRIPTION: CT CERVICAL SPINE WITHOUT IMAGES COMPLETED DATE/TIME: 10/29/2020 12:09 pm REASON FOR STUDY: fall, pain COMPARISON: None. TECHNIQUE: Axial images acquired through the cervical spine without intravenous contrast. Images re viewed with lung, soft tissue and bone windows. Reconstructed coronal and sagittal MPR images review ed. Images stored on PACS. All CT scanners at this facility use dose modulation, iterative reconstruction, and/or weight based d osing when appropriate to reduce radiation dose to as low as reasonably achievable (ALARA). [facility]: Dose Right [facility]: CareDose [facility]: Dose Right [facility]: Teradose 4D [facility]: [employer] RADIATION DOSE: CT Rad equipment meets quality standard of care and radiation dose reduction techniq ues were employed. CTDIvol: 23.9 mGy. DLP: 516 mGy-cm. mGy. LIMITATIONS: None. FINDINGS: ALIGNMENT: Anatomic. MINERALIZATION: Osteopenia. VERTEBRAL BODIES: No fractures or dislocation. DISCS: Multilevel disc space narrowing with osteophytes. FACETS, LATERAL MASSES, POSTERIOR ELEMENTS: Facet arthropathy. No fractures. No dislocation. No ac upper sioux findings. HARDWARE: None in the spine. VISUALIZED RIBS: No fractures. LUNG APICES AND SOFT TISSUES: No significant or acute findings. OTHER: No other significant finding. IMPRESSION: CHRONIC DEGENERATIVE CHANGES. NO ACUTE FINDINGS. TECHNICAL DOCUMENTATION: JOB ID: [id number] Quality ID # [id number]: Final reports with documentation of one or more dose reduction techniques (e.g., Au tomated exposure control, adjustment of the mA and/or kV according to patient size, use of iterative reconstruction technique) 2010 [email or web address]- All Rights Reserved Reading location - IP/workstation name: [email or web address]
--- NOTE | 2020-10-29 12:23 | RADIOLOGY REPORT (SQ) ---
EXAM DESCRIPTION: CT HEAD WITHOUT IMAGES COMPLETED DATE/TIME: 10/29/2020 12:09 pm REASON FOR STUDY: fall, ETOH, hit head, on Xarelto COMPARISON: 06/28/2018 TECHNIQUE: Axial images acquired through the brain without intravenous contrast. Images reviewed wi th bone, brain and subdural windows. Additional sagittal and coronal reconstructions were generated. Images stored on PACS. All CT scanners at this facility use dose modulation, iterative reconstruction, and/or weight based d osing when appropriate to reduce radiation dose to as low as reasonably achievable (ALARA). [facility]: Dose Right [facility]: CareDose [facility]: Dose Right [facility]: Teradose 4D [facility]: Smart [employer] RADIATION DOSE: CT Rad equipment meets quality standard of care and radiation dose reduction techniq ues were employed. CTDIvol: 53.2 mGy. DLP: 1017 mGy-cm. mGy. LIMITATIONS: None. FINDINGS: VENTRICLES: Prominent. CEREBRUM: No masses. No hemorrhage. No midline shift. Areas of low density in the white matter mos t likely due to chronic micro-vascular ischemic change. No evidence for acute infarction. CEREBELLUM: No masses. No hemorrhage. No alteration of density. No evidence for acute infarction. EXTRAAXIAL SPACES: Mild age-related involutional change. No fluid collections. No masses. ORBITS AND GLOBE: No intra- or extraconal masses. Normal contour of globe without masses. CALVARIUM: No fracture. PARANASAL SINUSES: Chronic right maxillary sinus disease. SOFT TISSUES: No mass or hematoma. OTHER: No other significant finding. IMPRESSION: MILD CHRONIC CHANGES OF ATROPHY AND MICROVASCULAR ISCHEMIA. NO ACUTE PROCESS. EVIDENCE OF ACUTE STROKE: NO. TECHNICAL DOCUMENTATION: JOB ID: [id number] Quality ID # [id number]: Final reports with documentation of one or more dose reduction techniques (e.g., Au tomated exposure control, adjustment of the mA and/or kV according to patient size, use of iterative reconstruction technique) 2010 [employer]- All Rights Reserved Reading location - IP/workstation name: [email or web address]
--- NOTE | 2020-10-29 12:44 | RADIOLOGY REPORT (SQ) ---
EXAM DESCRIPTION: SHOULDER RIGHT 2 OR MORE VIEWS IMAGES COMPLETED DATE/TIME: 10/29/2020 12:29 pm REASON FOR STUDY: fall, pain COMPARISON: None. NUMBER OF VIEWS: Three views. TECHNIQUE: Internal rotation, external rotation, and Y view images acquired of the right shoulder. LIMITATIONS: None. FINDINGS: MINERALIZATION: Normal. BONES: No acute fracture. No worrisome bone lesions. JOINTS: Mild degenerative changes in the acromioclavicular joint. VISUALIZED LUNGS AND RIBS: No pneumothorax. No rib fracture. SOFT TISSUES: No radiopaque foreign body. OTHER: No other significant finding. IMPRESSION: Mild degenerative changes in the AC joint. No acute abnormality. TECHNICAL DOCUMENTATION: JOB ID: [id number] 2010 [employer]- All Rights Reserved Reading location - IP/workstation name: [email or web address]
--- NOTE | 2020-10-29 12:52 | RADIOLOGY REPORT (SQ) ---
EXAM DESCRIPTION: RIBS LEFT W/PA CHEST IMAGES COMPLETED DATE/TIME: 10/29/2020 12:29 pm REASON FOR STUDY: fall, pain COMPARISON: None. TECHNIQUE: Frontal view of the chest and additional views of the left ribs acquired. NUMBER OF VIEWS: 6 views LIMITATIONS: None. FINDINGS: FRONTAL CXR: No pneumothorax. No pleural effusion. The heart size is borderline. RIBS: There appears to be an old fracture of the left 8th rib. No acute displaced rib fracture is se en. OTHER: No other significant finding. IMPRESSION: No pneumothorax. No displaced rib fractures. Borderline cardiomegaly without joyce pul monary edema. COMMENT: SITE OF TRAUMA/COMPLAINT MARKED/STAMP COMPLETED: No TECHNICAL DOCUMENTATION: JOB ID: [id number] 2010 [employer]- All Rights Reserved Reading location - IP/workstation name: [email or web address]
[2020-10-29 13:13] LABS: ABSOLUTE EOSINOPHILS # (AUTO) 0.2 10^3/uL (0.0-0.6); ABSOLUTE LYMPHOCYTES (AUTO) 2.8 10^3/uL (0.5-4.7); ABSOLUTE MONOCYTES (AUTO) 0.9 10^3/uL (0.1-1.4); ABSOLUTE NEUT (AUTO) 6.5 10^3/uL (1.7-8.2); BASOPHILS % (AUTO) 0.4 % (0-2); EOSINOPHILS % (AUTO) 1.9 % (0-6); HEMATOCRIT 36.6 % (37.9-51.0); HEMOGLOBIN 12.4 g/dL (13.5-17.0); LYMPHOCYTES % (AUTO) 26.9 % (13-45); MEAN CORPUSCULAR HEMOGLOBIN 33.4 pg (27.0-33.4); MEAN CORPUSCULAR HGB CONC 33.8 g/dL (32.0-36.0); MEAN CORPUSCULAR VOLUME 99 fl (80-97); MONOCYTES % (AUTO) 8.3 % (3-13); PLATELET COUNT 176 10^3/uL (150-450); RED CELL DISTRIBUTION WIDTH 16.1 % (11.5-14.0); SEGMENTED NEUTROPHILS % (AUTO) 62.5 % (42-78); TOTAL CELLS COUNTED % (AUTO) 100 %; WHITE BLOOD COUNT 10.4 10^3/uL (4.0-10.5)
[2020-10-29 13:29] LABS: ALBUMIN 3.1 g/dL (3.5-5.0); ALKALINE PHOSPHATASE 127 U/L (38-126); ASPARTATE AMINO TRANSFERASE 26 U/L (17-59); BILIRUBIN,DIRECT 0.3 mg/dL (0.0-0.4); BILIRUBIN,TOTAL 0.9 mg/dL (0.2-1.3); BLOOD UREA NITROGEN 9 mg/dL (7-20); CREATINE KINASE 46 U/L (55-170); GLUCOSE 117 mg/dL (75-110); POTASSIUM 3.5 mmol/L (3.6-5.0); TOTAL PROTEIN 7.2 g/dL (6.3-8.2)
[2020-10-29 13:34] LABS: ANION GAP 5 (5-19); CHLORIDE 93 mmol/L (98-107)
[2020-10-29 13:44] LABS: CARBON DIOXIDE 40 mmol/L (22-30)
--- NOTE | 2020-10-29 14:04 | RADIOLOGY REPORT (SQ) ---
EXAM DESCRIPTION: HIP LEFT AP/LATERAL IMAGES COMPLETED DATE/TIME: 10/29/2020 1:52 pm REASON FOR STUDY: PAIN COMPARISON: None. NUMBER OF VIEWS: Two views. TECHNIQUE: AP pelvis and additional frog legview of the left hip. LIMITATIONS: None. FINDINGS: MINERALIZATION: Normal. LEFT HIP: No fracture or dislocation. No worrisome bone lesions. No contour deformity. No joint spa ce narrowing. RIGHT HIP: No fracture or dislocation. No worrisome bone lesions. Limited views. PUBIS AND ISCHIUM: No fracture. PELVIS: No fracture. SACRUM: No fracture or dislocation. No worrisome bone lesions. LOWER LUMBAR SPINE: Spinal hardware. SOFT TISSUES: No findings. OTHER: Iliac stent on the left. IMPRESSION: NEGATIVE STUDY OF THE LEFT HIP AND PELVIS. NO EXPLANATION FOR PAIN. TECHNICAL DOCUMENTATION: JOB ID: [id number] 2010 [employer]- All Rights Reserved Reading location - IP/workstation name: [email or web address]
[2020-10-29] MEDS ORDERED: OXYCODONE HCL IR 5 MG TABLET PO ONE (17:00)
[2020-10-29 17:14] LABS: VENOUS BLOOD BASE EXCESS 8.9 mmol/L; VENOUS BLOOD HCO3 35.7 mmol/L (20-32); VENOUS BLOOD PH 7.41 (7.30-7.42)
[2020-10-29 18:30] VITALS: BP 146/89
--- NOTE | 2020-10-29 21:26 | EKG REPORT ---
SEVERITY:- OTHERWISE NORMAL ECG - SINUS HYTHM WITH ARTIFACT : Confirmed by: Danay Hutton MD 29-Oct-2020 21:25:12
== END 2020-10-29 18:20 | disposition home or self-care (01) ==
LOC: ER 10:20
DX: M25.551 Pain in right hip (principal); M25.511 Pain in right shoulder; R51.9 Headache, unspecified; R07.81 Pleurodynia; W19.XXXA Unspecified fall, initial encounter; Y92.000 Kitchen of unspecified non-institutional (private) residence as the place of occurrence of the external cause; M47.812 Spondylosis without myelopathy or radiculopathy, cervical region; I89.0 Lymphedema, not elsewhere classified; S81.802A Unspecified open wound, left lower leg, initial encounter; S81.801A Unspecified open wound, right lower leg, initial encounter; X58.XXXA Exposure to other specified factors, initial encounter; F10.20 Alcohol dependence, uncomplicated; I25.10 Atherosclerotic heart disease of native coronary artery without angina pectoris; I10 Essential (primary) hypertension; J44.9 Chronic obstructive pulmonary disease, unspecified; I25.2 Old myocardial infarction; F17.200 Nicotine dependence, unspecified, uncomplicated; F12.10 Cannabis abuse, uncomplicated; Z79.01 Long term (current) use of anticoagulants; Z86.718 Personal history of other venous thrombosis and embolism; Z86.14 Personal history of Methicillin resistant Staphylococcus aureus infection; Z95.5 Presence of coronary angioplasty implant and graft; Z99.81 Dependence on supplemental oxygen; Z88.1 Allergy status to other antibiotic agents; Z88.6 Allergy status to analgesic agent; Z88.5 Allergy status to narcotic agent
CPT/HCPCS: 93005; 99285; 96374; 96375; 36415; 82550; 85025; 80053; 82803; 73502; 71101; 73030; 70450; 72125; 93010; J3010; J2405; A9270